=== PATIENT | male | born 1955 | race Caucasian/White ===

== ENCOUNTER 2019-11-13 19:11 | Inpatient (IN) | payer MEDICARE, MEDICAID, SELFPAY ==
--- NOTE | ~2019-11-13 | XR_ITS ---
XR abdomen NG/feed tube insert INDICATION: Evaluate position. TECHNIQUE: Limited KUB perform for evaluating NG tube . COMPARISON: FINDINGS: NG tube tip not visualized, likely in the esophagus. Visualized bowel gas pattern is unrema rkable.There is left upper and lower lobe consolidation which may represent atelectasis or pneumonia. IMPRESSION: 1: NG tube tip is not visualized, likely in the esophagus. 2: Left upper and lower lobe consolidation, atelectasis versus pneumonia. Reviewed, dictated and finalized at location A. TRY OUT WORKER STAMPING
--- NOTE | ~2019-11-13 | MR_ITS ---
EXAMINATION: MR knee LT wo/w con DATE: 11/15/2019 14:02 INDICATION: Stump cellulitis status post below-knee amputation. TECHNIQUE: Magnetic resonance imaging (MRI) of the left knee was performed without and with 20 mL Mul tiHance intravenous contrast. Sequences included axial, coronal, and sagittal T1-weighted FSE and T2- weighted FS FSE, axial T1-weighted FS FSE, and postcontrast axial and sagittal T1-weighted FS FSE COMPARISON: Left knee radiographs 11/15/2019 FINDINGS: There are changes of left below-knee amputation. There is no decreased T1-weighted signal intensity i n the stump bone marrow to suggest osteomyelitis. There is increased T2-weighted signal intensity in the lower leg musculature with severe fatty atrophy, consistent with subacute on chronic denervation. There is subcutaneous edema of the stump. In the anterior subcutaneous fat, there is a 3.8 x 0.9 x 1 .6 cm mass of increased T2-weighted signal intensity and nonenhancement extending to the skin, consis tent with abscess. IMPRESSION: 1. No evidence of osteomyelitis. 2. 3.8 x 0.9 x 1.6 cm subcutaneous abscess in the anterior stump. Reviewed, dictated and finalized at location A. ING TOWER TECHNICIAN
--- NOTE | ~2019-11-13 | XR_ITS ---
EXAMINATION: XR knee LT min 4V DATE: 11/15/2019 14:07 INDICATION: Left lower leg cellulitis. TECHNIQUE: 4 views of left knee were obtained. COMPARISON: MRI 11/15/2019 FINDINGS: There are changes of left below-knee amputation. No erosions of bone to suggest osteomyelit is. Osteopenia is noted. There is mild left knee osteoarthritis. No knee joint effusion. IMPRESSION: 1. No evidence of osteomyelitis. Reviewed, dictated and finalized at location A. ING LINE SET UP WORKER
--- NOTE | ~2019-11-13 | XR_ITS ---
XR abdomen NG/feed tube rechec INDICATION: Evaluate NG tube position. TECHNIQUE: Limited KUB perform for evaluating NG tube . COMPARISON: 11/13/2019 FINDINGS: NG tube tip in the stomach. Visualized bowel gas pattern is unremarkable. IMPRESSION: 1: NG tube tip in the stomach. Reviewed, dictated and finalized at location A. CINE WORKER
[2019-11-13 19:17] VITALS: BP 117/64; PULSE 99; RESP 18; TEMP 36.8; O2SAT 96
[2019-11-13 19:24] VITALS: BP 117/64; O2SAT 97
--- NOTE | 2019-11-13 19:49 | ED.NAVMDI ---
HPI - Nausea/Vomiting/Diarrhea General Chief complaint: Nausea/Vomiting/Diarrhea Stated complaint: vomiting blood Time Seen by Provider: 11/13/19 19:49 Source: patient and RN notes reviewed Mode of arrival: EMS Limitations: no limitations History of Present Illness HPI Narrative: A 63 y/o male presents to the ED via EMS after vomiting dark red blood twice today. He states that he first vomited dark red blood on 10/30/19 and then had two more episodes today, so he decided to come to the ED. He also reports some LLQ ABD pain that he needs hernia surgery for. He denies any fevers, chills, CP, SOB, diarrhea, and any other medical complaints at this time. MD elicited complaint: nausea and vomiting (dark red blood) Onset (ago): hour(s) (twice today but happened once before on 10/30/19) Description of vomiting: bloody (dark red) Associated nausea: Yes Associated abdominal pain: Yes Location of pain: LLQ Associated symptoms: denies other symptoms Related Data Allergies Allergy/AdvReac Type Severity Reaction Status Date / Time Penicillins Allergy Unknown Verified 07/04/19 14:27 Review of Systems Review of Systems: All systems reviewed & are unremarkable except as noted in HPI and below Constitutional: Constitutional: Denies chills, Denies fatigue, Denies fever(s), Denies headache(s) and Denies night sweats Eyes: Eyes: Denies change in vision, Denies loss of vision and Denies other visual disturbances ENT: Denies headache(s), Denies hoarseness, Denies epistaxis, Denies nasal congestion and Denies sore throat Cardiovascular: Cardiovascular: Denies chest pain, Denies leg edema, Denies palpitations and Denies dyspnea Respiratory: Respiratory: Denies cough, Denies dyspnea and Denies wheezing Gastrointestinal: Gastrointestinal: Reports abdominal pain (LLQ), Denies diarrhea, Reports nausea and Reports hematemesis (dark) Genitourinary: Genitourinary: Denies hematuria, Denies dysuria and Denies urinary frequency Musculoskeletal: Musculoskeletal: Denies abnormal gait, Denies deformity, Denies joint swelling, Denies muscle weakness and Denies numbness Integumentary/Breasts: Skin/Breast: Denies rash, Denies unusual bruising and Denies wounds Neurologic: Denies abnormal gait, Denies headache(s), Denies focal weakness, Denies loss of vision and Denies numbness Psychiatric: Psychiatric: Reports no additional psychiatric complaints Endocrine: Endocrine: Denies fatigue and Denies palpitations Hematologic/Lymphatic: Hematologic/Lymphatic: Denies easy bleeding and Denies easy bruising Allergic/Immunologic: Allergic/Immunologic: Denies wheezing PMFSH Past Medical History Medical History (Updated 11/13/19 @ 23:29 by Zeeshan Valladares MD) Hypertension Obesity Surgical History Surgical History (Updated 11/13/19 @ 20:21 by Salvatore Brunner) H/O abdominal surgery Hx of BKA Lt. Family History Family History Father Diabetes mellitus Family history of alcoholism Mother Diabetes mellitus Sibling Family history of emphysema Other Family history of cardiovascular disease Social History Social History Smoking status: Never smoker Alcohol intake: never Gender identity (if verbalized by the patient): Male Exam Const: General: no acute distress, well developed and ill appearing chronically Nutritional Appearance: obese morbidly obese Orientation/consciousness: patient oriented x3 (alert) and Other orientation findings (Alert) Limitations: no limitations HENMT: Head: normocephalic and atraumatic Ears: external ears normal General nose exam: No nasal discharge present and no epistaxis Face and sinus: face symmetric Mouth: Yes lip normal, Yes tongue normal and Yes moist mucous membranes Throat: other (No exudate, no erythema) Eyes: Conjunctivae: conjunctivae normal Sclera: sclerae normal EOM: EOMs intact bilaterally Neck:
[2019-11-13] MEDS: FAMOTIDINE 20 MG/2 ML VIAL 40 MG IV PUSH (20:35)
[2019-11-13] MEDS: LACTATED RINGERS 1,000 ML 999 ML IV CONT (20:35)
[2019-11-13 21:38] VITALS: BP 137/73; PULSE 102; RESP 20; O2SAT 95
[2019-11-13 22:22] LABS: Basophils Percent Auto 0.3 % (0.2-1.2); Eosinophils Absolute Auto 0.1 K/mm3 (0-0.3); Eosinophils Percent Auto 1.3 % (0-4.4); Hematocrit 36.2 % (42.0-52.0); Hemoglobin 11.4 g/dL (14.0-18.0); Immature Granulocyte Absolute 0.07 K/mm3 (0.00-0.031); Immature Granulocyte Percent A 0.7 % (0-0.5); Lymphocytes Absolute Auto 2.22 K/mm3 (0.9-3.2); Lymphocytes Percent Auto 21.2 % (18.3-44.2); Mean Corpuscular HGB Conc 31.5 g/dl (32-36); Mean Corpuscular Hemoglobin 30.2 pg (26-34); Mean Corpuscular Volume 95.8 fl (80-100); Mean Platelet Volume 8.4 fl (7.4-10.4); Monocytes Percent Auto 9.3 % (2.6-8.5); Neutrophils Percent Auto 67.2 % (45.5-73.1); Platelet Count Result 331 k/mm3 (150-375); Red Blood Count 3.78 M/mm3 (4.6-6.20); Red Cell Distribution Width 12.8 % (11.5-14.5); White Blood Count 10.5 K/mm3 (4.5-10.0)
[2019-11-13] MEDS: ceFAZolin 2 GM/D5W 50 ML 2 GM/50 ML BAG IVPB (22:23)
[2019-11-13 22:34] LABS: Alanine Aminotransferase 16 U/L (4-50); Albumin Level 3.5 g/dL (3.5-5.1); Alkaline Phosphatase 95 U/L (38-126); Aspartate Amino Transferase 27 U/L (17-59); Bilirubin,Total 0.2 mg/dL (0.2-1.3); Blood Urea Nitrogen 10 mg/dL (9-20); Calcium 9.4 mg/dL (8.4-10.2); Carbon Dioxide 32 mmol/L (22-30); Chloride 97 mmol/L (98-107); Estimated CRCL calculation 134 ml/min; Estimated Glomerular Filt Rate > 60; Glucose 260 mg/dL (75-110); Potassium 4.9 mmol/L (3.4-5.0); Sodium 133 mmol/L (137-145)
[2019-11-14] VITALS (9 sets, daily range): BP systolic 132–189; BP diastolic 53–95; PULSE 84–113; RESP 16–20; TEMP 36.7–37.3; O2SAT 94–100; BMI 44.1
--- NOTE | 2019-11-14 00:28 | ADMGEN ---
This patient, Wing Veloz, was admitted to 3 [facility] Surg Room 323-01. Patient/family oriented to hospital policies and general routines including ID bracelet, bed and alarms, visiting hours, pain management, procedures, bathroom and other care routines, personal items, smoking policy, room service/diet, and visiting hours. Valuables list has been completed. Information on how to activate the Rapid Response Team has been discussed. Patient/Family are encouraged to report perceived risks to care and to ask questions if they do not understand what they are told or what they should do.
[2019-11-14] MEDS: LACTATED RINGERS 1,000 ML 125 ML IV CONT ×2 (01:00→23:38)
[2019-11-14 02:19] LABS: Hematocrit 33.8 % (42.0-52.0); Hemoglobin 10.8 g/dL (14.0-18.0); Mean Corpuscular Hemoglobin 30.3 pg (26-34); Mean Corpuscular Volume 94.7 fl (80-100); Mean Platelet Volume 8.2 fl (7.4-10.4); Platelet Count Result 306 k/mm3 (150-375); Red Blood Count 3.57 M/mm3 (4.6-6.20); Red Cell Distribution Width 12.8 % (11.5-14.5); White Blood Count 9.6 K/mm3 (4.5-10.0)
[2019-11-14 02:35] LABS: Blood Urea Nitrogen 9 mg/dL (9-20); Carbon Dioxide 30 mmol/L (22-30); Chloride 100 mmol/L (98-107); Estimated CRCL calculation 167 ml/min; Estimated Glomerular Filt Rate > 60; Glucose 238 mg/dL (75-110); Potassium 4.3 mmol/L (3.4-5.0); Sodium 134 mmol/L (137-145)
--- NOTE | 2019-11-14 04:34 | HP_ITS ---
DATE OF SERVICE: CHIEF COMPLAINT: 1. Nausea. 2. Vomiting of blood. HISTORY OF PRESENT ILLNESS: The patient is a 63 years old male, who was admitted to the emergency room with a complaint that he started having vomiting of blood about 2 weeks ago. He had first episode and then after that, he had 1 episode this morning. Vomiting was dark red in color and the patient also had mild nausea associated with it. The patient also said that he has ventral hernia and sometimes he gets pain in the left lower quadrant at the site of hernia and physician has recommended that he may need surgery for it. The patient denies any fever or chills. No shortness of breath. No chest pain. REVIEW OF SYSTEMS: Positive for nausea and vomiting of blood and mild abdominal pain. All other 10 review of systems were reviewed with the patient and found to be negative. ALLERGIES: THE PATIENT IS ALLERGIC TO PENICILLIN, SEVERITY UNKNOWN. PAST MEDICAL HISTORY: 1. Hypertension. 2. Obesity. PAST SURGICAL HISTORY: 1. History of abdominal surgery. 2. History of left BKA. FAMILY HISTORY: Diabetes run in the family on the father's side. Mother had diabetes. Sibling has emphysema. SOCIAL HISTORY: No smoking and no alcohol. CURRENT MEDICATIONS: Reviewed and in the chart. PHYSICAL EXAMINATION: VITAL SIGNS: At the time of admission include blood pressure is 117/64, pulse rate 99, respirations 18, temperature is 36.8, pulse ox is 96. HEENT: Pupils are equal and reacting to light. no JVD. No bruit. NECK: Supple. LUNGS: Air entry good. No additional sound. HEART: S1 and S2. Rate and rhythm regular. No S3. No murmur. ABDOMEN: Soft, mild epigastric tenderness. Bowel sounds positive. No hepatosplenomegaly. EXTREMITIES: The patient might have small ventral hernia, but because of obesity, it is difficult to assess. No cyanosis, clubbing, or edema. The patient has left below knee amputation and has slight cellulitis in the stump area. MECHANICAL MANUFACTURING TECHNICIAN: Alert and oriented x3. No new focal deficits. IMPORTANT LAB DATA: The patient has an NG tube that shows small amount of blood in it. WBC count is 10.5, hemoglobin 11.4, platelet count is 331. Sodium 133, potassium 4.9, BUN 10, creatinine 0.7, glucose is 260. The patient's abdominal x-ray shows NG tube is not visualized. Left upper and left lower lobe consolidation. Atelectasis and versus pneumonia. ASSESSMENT AND PLAN: 1. Upper gastrointestinal bleed. 2. Cellulitis of the left below knee amputation stump. 3. Slightly elevated glucose. PLAN: 1. Admit. 2. We will give IV fluids, S2 blockers. 3. IV antibiotics, culture. 4. GI consult. 5. Monitor hemoglobin closely. 6. Monitor glucose closely. 7. We will put the patient on sliding scale insulin. 8. The patient will stay for more than 2 days in the hospital. 9. The patient is full code at the present time. 10. Further evaluation and treatment of the patient will be done according to the lab data available and recommendation by the specialist. Kate I MT: Humberto
[2019-11-14 06:21] LABS: Basophils Percent Auto 0.4 % (0.2-1.2); Eosinophils Absolute Auto 0.2 K/mm3 (0-0.3); Eosinophils Percent Auto 1.7 % (0-4.4); Hematocrit 34.1 % (42.0-52.0); Immature Granulocyte Absolute 0.08 K/mm3 (0.00-0.031); Immature Granulocyte Percent A 0.8 % (0-0.5); Lymphocytes Absolute Auto 2.36 K/mm3 (0.9-3.2); Lymphocytes Percent Auto 24.4 % (18.3-44.2); Mean Corpuscular HGB Conc 32.3 g/dl (32-36); Mean Corpuscular Hemoglobin 30.1 pg (26-34); Mean Corpuscular Volume 93.4 fl (80-100); Mean Platelet Volume 8.6 fl (7.4-10.4); Monocytes Absolute Auto 1.1 K/mm3 (0.1-0.6); Monocytes Percent Auto 10.8 % (2.6-8.5); Neutrophils Percent Auto 61.9 % (45.5-73.1); Platelet Count Result 288 k/mm3 (150-375); Red Blood Count 3.65 M/mm3 (4.6-6.20); Red Cell Distribution Width 12.7 % (11.5-14.5); White Blood Count 9.7 K/mm3 (4.5-10.0)
[2019-11-14 08:06] LABS: Glucose Point of Care 272 (65-105)
[2019-11-14] MEDS: ceFAZolin 2 GM/D5W 50 ML 2 GM/50 ML BAG IVPB ×4 (08:50→23:37)
--- NOTE | 2019-11-14 09:45 | WPDGICN ---
Assessment and Plan Additional Plan This is a 63-year-old white male patient with a history of hypertension, diabetes, and peripheral vascular disease. I am asked to see him at the request of the emergency room because of hematemesis. Patient reports 2 weeks ago had bout of nausea vomiting and vomited some blood. Once again yesterday he vomited some blood. This prompted him to go to the emergency room. He was admitted to the hospital. Patient has a long history of diabetes. He has peripheral vascular disease. Status post left pcwur-gdm-tkbf amputation this was found to have evidence for cellulitis in the emergency room last evening. He has had multiple surgeries in the abdomen predominantly for hernia repair. He states he still has a ventral hernia present. Patient denies any fever. He states his bowel habits are normal. Family history is noncontributory. Past medical history is significant for hypertension. Diabetes mellitus. Obesity. Peripheral vascular disease. Previous left xemyu-qqp-icaf amputation. History of ventral hernia and several repair surgeries. Medications include Tylenol vitamin C escitalopram. Gabapentin. Insulin. Victoza. Lisinopril. Tramadol. Senna. He has an allergy to penicillin. Physical exam reveals an to be alert. Vital signs stable. He is anicteric. NG tube is in place with clear return. Lungs are clear to auscultation and percussion. Heart is without murmur or extra sounds. Abdominal exam is obese. Bowel sounds are present soft nontender no organomegaly. Extremities reveal a left jhphl-kau-htfo amputation. There is cellulitis at his amputation stump. Impression 1. Hematemesis. Plan is for IV proton pump inhibitor. An EGD to assess for bleeding will be obtained. 2. Obesity. 3. Diabetes. 4. Left kguya-tov-aaoe amputation. 5. Left lower extremity cellulitis. 6. Previous abdominal surgery with ventral hernia repairs. Plan is for IV proton pump inhibitor. An EGD will be planned. Will follow with you during this hospital stay. GI Consult Note Consult date/time: 11/14/19 09:45 HPI: Wing Veloz is a 63 year old male [facility] Past Medical History Medical History (Updated 11/14/19 @ 09:48 by Conrad Brady MD) CAD (coronary artery disease) Diabetes Hypertension Obesity TAWANDA (obstructive sleep apnea) Peripheral vascular disease Surgical History Surgical History (Updated 11/13/19 @ 20:21 by Salvatore Brunner) H/O abdominal surgery Hx of BKA Lt. Family History Family History Father Diabetes mellitus Family history of alcoholism Mother Diabetes mellitus Sibling Family history of emphysema Other Family history of cardiovascular disease Social History Social History Smoking status: Never smoker Alcohol intake: never Substance use: never Gender identity (if verbalized by the patient): Male Spiritual care concerns: No Agree to blood products: Yes Meds Home Medications and Allergies Home Medications Medication Instructions Recorded Confirmed Type Senna-S 1 tab-cap PO DAILY 11/14/19 11/14/19 History acetaminophen [Acetaminophen Extra 500 mg PO Q6H PRN 11/14/19 11/14/19 History Strength] ascorbic acid (vitamin C) 500 mg PO BID 11/14/19 11/14/19 History ergocalciferol (vitamin D2) 50,000 unit PO WEEKLY 11/14/19 11/14/19 History [Vitamin D2] escitalopram oxalate 5 mg PO DAILY 11/14/19 11/14/19 History escitalopram oxalate 10 mg PO DAILY 11/14/19 11/14/19 History gabapentin 600 mg PO TID 11/14/19 11/14/19 History insulin admin supplies [InPen (for 11/14/19 11/14/19 History Humalog)] insulin glargine [Lantus Solostar 80 unit SUBCUT HS 11/14/19 11/14/19 History U-100 Insulin] insulin lispro [Humalog U-100 35 unit SUBCUT AC 11/14/19 11/14/19 History Insulin] liraglutide [Victoza 2-Tushar] 1.8 mg SUBCUT DAILY 11/14/1911/14
--- NOTE | 2019-11-14 09:47 | WPDANESEPPF ---
Anes - Initial Pre Proc Eval Procedure: Operation Date: 11/14/19 10:30 Proposed Procedures p Esophagogastroduodenoscopy - Zeeshan Luu MD Date/Time: 11/14/19 09:47 Surgeon: Adrian Haywood MD Pre Op Diagnosis: ugib leg cellulitis Patient Data Age: 63 Gender: M Height: 6 ft 2 in Weight: 156 kg Last Vital Signs Temp 37.3 C 11/14/19 06:00 Pulse 102 H 11/14/19 06:00 Resp 20 11/14/19 06:00 BP 140/68 11/14/19 06:00 Pulse Ox 94 11/14/19 06:00 Allergies Allergy/AdvReac Type Severity Reaction Status Date / Time Penicillins Allergy Unknown Verified 07/04/19 14:27 Home Medications Medication Instructions Recorded Confirmed Type Senna-S 1 tab-cap PO DAILY 11/14/19 11/14/19 History acetaminophen [Acetaminophen Extra 500 mg PO Q6H PRN 11/14/19 11/14/19 History Strength] ascorbic acid (vitamin C) 500 mg PO BID 11/14/19 11/14/19 History ergocalciferol (vitamin D2) 50,000 unit PO WEEKLY 11/14/19 11/14/19 History [Vitamin D2] escitalopram oxalate 5 mg PO DAILY 11/14/19 11/14/19 History escitalopram oxalate 10 mg PO DAILY 11/14/19 11/14/19 History gabapentin 600 mg PO TID 11/14/19 11/14/19 History insulin admin supplies [InPen (for 11/14/19 11/14/19 History Humalog)] insulin glargine [Lantus Solostar 80 unit SUBCUT HS 11/14/19 11/14/19 History U-100 Insulin] insulin lispro [Humalog U-100 35 unit SUBCUT AC 11/14/19 11/14/19 History Insulin] liraglutide [Victoza 2-Tushar] 1.8 mg SUBCUT DAILY 11/14/19 11/14/19 History lisinopril 5 mg PO DAILY 11/14/19 11/14/19 History mirtazapine 30 mg PO HS 11/14/19 11/14/19 History multivitamin,ii-cked-Lb-FA-min 1 tablet PO DAILY 11/14/19 11/14/19 History [Therapeutic-M Vitamin/Minerals] quiwxpii-xyukkxugwVn-gncftjiuB 1 applic TOPICAL BID PRN 11/14/19 11/14/19 History [Triple Antibiotic] silver sulfadiazine [Silvadene] 1 applic TOPICAL BID PRN 11/14/19 11/14/19 History tramadol 50 mg PO Q6H PRN 11/14/19 11/14/19 History Laboratory Tests 11/13/19 11/13/19 11/14/19 22:13 22:13 02:12 WBC 10.5 K/mm3 H K/mm3 9.6 K/mm3 K/mm3 (4.5-10.0) (4.5-10.0) RBC 3.78 M/mm3 L M/mm3 3.57 M/mm3 L M/mm3 (4.6-6.20) (4.6-6.20) Hgb 11.4 g/dL L g/dL 10.8 g/dL L g/dL (14.0-18.0) (14.0-18.0) Hct 36.2 % L % 33.8 % L % (42.0-52.0) (42.0-52.0) MCV 95.8 fl fl 94.7 fl fl (80-100) (80-100) MCH 30.2 pg pg 30.3 pg pg (26-34) (26-34) MCHC 31.5 g/dl L g/dl 32.0 g/dl g/dl (32-36) (32-36) RDW 12.8 % % 12.8 % % (11.5-14.5) (11.5-14.5) Plt Count 331 k/mm3 D k/mm3 306 k/mm3 k/mm3 (150-375) (150-375) MPV 8.4 fl fl 8.2 fl fl (7.4-10.4) (7.4-10.4) Immature Gran % (Auto) 0.7 % H % (0-0.5) Neut % (Auto) 67.2 % % (45.5-73.1) Lymph % (Auto) 21.2 % % (18.3-44.2) [place] % (Auto) 9.3 % H % (2.6-8.5) Eos % (Auto) 1.3 % % (0-4.4) Baso % (Auto) 0.3 % % (0.2-1.2) Lymph # (Auto) 2.22 K/mm3 K/mm3 (0.9-3.2) [place] # (Auto) 1.0 K/mm3 H K/mm3 (0.1-0.6) Eos # (Auto) 0.1 K/mm3 K/mm3 (0-0.3) Baso # (Auto) 0.0 K/mm3 K/mm3 (0.0-0.1) Abs Immat Gran (auto) 0.07 K/mm3 H K/mm3 (0.00-0.031) Absolute Neuts (auto) 7.0 K/mm3 H K/mm3 (1.3-6.7) Absolute Nucleated RBC 0.0 K/mm3 K/mm3 (0.0-0.012) Nucleated RBC % 0.0 % % (0.0-0.2) Sodium 133 mmol/L L mmol/L (137-145) Potassium 4.9 mmol/L mmol/L (3.4-5.0) Chloride 97 mmol/L L mmol/L (98-107) Carbon Dioxide 32 mmol/L H mmol/L (22-30) BUN 10 mg/dL mg/dL (9-20) Creatinine 0.70 mg/dL mg/dL (0.7-1.3) Estim Creat Clear Calc 134 ml/min ml/min Estimated GFR > 60 (59 - ) Glucose 260 mg/dL H mg/dL (75-110) POC Capillary Glucose Calcium 9.4 mg/dL mg/dL (8.4-10.2) Total Bi
[2019-11-14 09:56] LABS: Glucose Point of Care 292 (65-105)
[2019-11-14 11:38] LABS: Glucose Point of Care 287 (65-105)
[2019-11-14] MEDS: INSULIN ASPART (*BKC) 100 UNITS/ML SUB-Q ×3 (12:12→20:38)
--- NOTE | 2019-11-14 13:40 | PM.IMPN ---
Progress Note: A&P Assessment and Plan (1) UGIB (upper gastrointestinal bleed): Code(s): K92.2 - Gastrointestinal hemorrhage, unspecified Status: Acute Assessment and Plan: EGD today revealed esophagitis gastritis but no active bleeding.. Proton pump inhibitor and advance diet Complains of dark stools but does take Pepto-Bismol at home and BUN is normal ,suggesting at least no recent significant upper GI bleed (2) Cellulitis of left leg: Code(s): L03.116 - Cellulitis of left lower limb Status: Acute Assessment and Plan: Continue vancomycin and cefazolin initially which would cover for strep and staph adequately. If does not respond quickly consider broaden coverage to g negatives with his diabetes (3) Hypertension: Code(s): I10 - Essential (primary) hypertension Status: Acute Assessment and Plan: Blood pressure fair control continue ADAMARIS-inhibitor (4) Diabetes: Code(s): E11.9 - Type 2 diabetes mellitus without complications Status: Acute Assessment and Plan: Decrease Lantus to 60 units with a sliding scale and check A1c (5) Peripheral vascular disease: Code(s): I73.9 - Peripheral vascular disease, unspecified Status: Acute Assessment and Plan: Should probably be on anti-platelet and statin but will leave that to primary care (6) TAWANDA (obstructive sleep apnea): Code(s): G47.33 - Obstructive sleep apnea (adult) (pediatric) Status: Acute Assessment and Plan: Nocturnal CPAP (7) DVT prophylaxis: Code(s): Z29.9 - Encounter for prophylactic measures, unspecified Status: Acute Assessment and Plan: Mechanical with history of bleeding Subjective Date/time seen: 11/14/19 13:40 Interval history: Date of visit 11/14/2019. 63-year-old hypertensive type 2 diabetic admitted with abdominal pain, hematemesis, and pain and swelling of left below-knee amputation. Found to have cellulitis of the leg and admitted for treatment of the same Still complains some abdominal pain today Exam Narrative: Exam Narrative: Blood pressure 150/60 pulse is 100 saturating 95% on room air afebrile Pupil equal reactive to light sclera anicteric Lungs clear CV regular rate rhythm Abdomen is soft bowel sounds are present morbidly obese large midline scar Extremities without edema the left below-knee amputation stumps erythematous and is a small open area Right leg distal pulses 1+ no edema Neuro alert no focal deficits oriented Objective Data Vital Signs Vital Signs: Vital Signs - 24 hr 11/13/19 19:17 11/13/19 19:24 11/13/19 21:38 Temperature 36.8 C Pulse Rate 99 102 H Respiratory Rate 18 20 Blood Pressure 117/64 117/64 137/73 Pulse Oximetry 96 97 95 11/14/19 00:04 11/14/19 00:25 11/14/19 06:00 Temperature 37.0 C 36.8 C 37.3 C Pulse Rate 84 101 H 102 H Respiratory Rate 16 20 20 Blood Pressure 155/88 H 153/85 H 140/68 Pulse Oximetry 100 99 94 11/14/19 09:56 11/14/19 10:43 11/14/19 10:53 Temperature 36.7 C Pulse Rate 109 H 113 H 104 H Respiratory Rate 16 20 20 Blood Pressure 157/95 H 138/58 L 148/53 H Pulse Oximetry 96 98 98 11/14/19 11:03 Temperature Pulse Rate 106 H Respiratory Rate 20 Blood Pressure 151/59 H Pulse Oximetry 98 Intake/Output Intake/Output: Intake & Output 11/11/19 11/12/19 11/13/19 11/14/19 23:59 23:59 23:59 23:59 Intake Total 1000 710 Output Total 400 Balance 1000 310 Meds/Results Medications: Active Medications Generic Name Dose Route Start Last Admin Trade Name Freq PRN Reason Stop Dose Admin Dextrose 12.5 gm 11/14/19 01:31 Dextrose 50% Syringe IV PUSH PRN PRN Hypoglycemia Protocol Glucagon 1 mg 11/14/19 01:31 Glucagon For Inj IM PRN PRN Hypoglycemia Protocol Glucose 15 gm 11/14/19 01:31 Glutose 15 PO PRN PRN Hypoglycemia Protocol Lactated Ringer's 1,000 mls @ 125 mls/h
[2019-11-14 16:52] LABS: Glucose Point of Care 364 (65-105)
[2019-11-14] MEDS: lisinopriL 5 MG TABLET PO (17:22)
[2019-11-14] MEDS: AMLODIPINE BESYLATE 5 MG TABLET PO (17:22)
[2019-11-14] MEDS: GABAPENTIN 300 MG CAPSULE 600 MG PO (17:29)
[2019-11-14] MEDS: INSULIN GLARGINE (*BKC) 100 UNITS/ML 60 UNITS SUB-Q (20:37)
[2019-11-14] MEDS: MIRTAZAPINE 30 MG TABLET PO (20:38)
[2019-11-15 02:38] LABS: Glucose Point of Care 328 (65-105)
[2019-11-15 06:06] VITALS: BP 131/72; PULSE 100; RESP 18; TEMP 36.6; O2SAT 94
[2019-11-15 06:21] LABS: Basophils Percent Auto 0.3 % (0.2-1.2); Eosinophils Absolute Auto 0.2 K/mm3 (0-0.3); Eosinophils Percent Auto 2.2 % (0-4.4); Hemoglobin 10.8 g/dL (14.0-18.0); Immature Granulocyte Absolute 0.03 K/mm3 (0.00-0.031); Immature Granulocyte Percent A 0.4 % (0-0.5); Lymphocytes Absolute Auto 1.83 K/mm3 (0.9-3.2); Lymphocytes Percent Auto 25.3 % (18.3-44.2); Mean Corpuscular HGB Conc 31.8 g/dl (32-36); Mean Corpuscular Hemoglobin 30.2 pg (26-34); Mean Platelet Volume 8.3 fl (7.4-10.4); Monocytes Absolute Auto 0.8 K/mm3 (0.1-0.6); Monocytes Percent Auto 11.3 % (2.6-8.5); Neutrophils Absolute Auto 4.4 K/mm3 (1.3-6.7); Neutrophils Percent Auto 60.5 % (45.5-73.1); Platelet Count Result 305 k/mm3 (150-375); Red Blood Count 3.58 M/mm3 (4.6-6.20); Red Cell Distribution Width 12.6 % (11.5-14.5); White Blood Count 7.2 K/mm3 (4.5-10.0)
[2019-11-15] MEDS: ceFAZolin 2 GM/D5W 50 ML 2 GM/50 ML BAG IVPB (06:29)
[2019-11-15 06:34] LABS: Blood Urea Nitrogen 7 mg/dL (9-20); Calcium 8.6 mg/dL (8.4-10.2); Carbon Dioxide 32 mmol/L (22-30); Chloride 97 mmol/L (98-107); Estimated CRCL calculation 167 ml/min; Estimated Glomerular Filt Rate > 60; Glucose 307 mg/dL (75-110); Potassium 3.8 mmol/L (3.4-5.0); Sodium 134 mmol/L (137-145)
[2019-11-15 06:43] LABS: Hemoglobin A1C 11.6 % (<5.7)
--- NOTE | 2019-11-15 07:10 | WPDGIPROGNO ---
Progress Note: A&P Additional Plan Patient alert and comfortable this morning. Tolerated diet. He denies abdominal pain. No signs of additional GI blood loss. Physical exam reveals patient to be alert. Vital signs stable. HEENT exam unremarkable. He is anicteric. Lungs are clear. Abdomen is obese. Bowel sounds are present soft and nontender. Impression 1. Esophagitis. Etiology unclear. Histology pending to exclude infectious process. Plan is to keep on Protonix for possible reflux. 2. Gastric erosion. Likely from NG tube trauma. Patient on Protonix. 3. Cellulitis. Antibiotics per primary care service. Plan is to advance diet. He likely will tolerate bland diet best. Continue Protonix. Await final histology. Subjective Date/time seen: 11/15/19 07:10 Objective Data Vital Signs Vital Signs: Vital Signs - 24 hr 11/14/19 09:56 11/14/19 10:43 11/14/19 10:53 Temperature 36.7 C Pulse Rate 109 H 113 H 104 H Respiratory Rate 16 20 20 Blood Pressure 157/95 H 138/58 L 148/53 H Pulse Oximetry 96 98 98 11/14/19 11:03 11/14/19 14:18 11/14/19 22:05 Temperature 36.8 C 36.9 C Pulse Rate 106 H 106 H 102 H Respiratory Rate 20 18 18 Blood Pressure 151/59 H 189/91 H 132/71 Pulse Oximetry 98 98 95 11/15/19 06:06 Temperature 36.6 C Pulse Rate 100 Respiratory Rate 18 Blood Pressure 131/72 Pulse Oximetry 94 Intake/Output Intake/Output: Intake & Output 11/12/19 11/13/19 11/14/19 11/15/19 23:59 23:59 23:59 23:59 Intake Total 1000 2600 250 Output Total 1725 500 Balance 1000 875 -250 Meds/Results Medications: Active Medications Generic Name Dose Route Start Last Admin Trade Name Freq PRN Reason Stop Dose Admin Dextrose 12.5 gm 11/14/19 01:31 Dextrose 50% Syringe IV PUSH PRN PRN Hypoglycemia Protocol Escitalopram Oxalate 10 mg 11/15/19 09:00 Lexapro PO DAILY PAULIE Escitalopram Oxalate 5 mg 11/15/19 09:00 Lexapro PO DAILY PAULIE Gabapentin 600 mg 11/14/19 17:00 11/14/19 17:29 Neurontin PO 600 mg TID PAULIE Administration Glucagon 1 mg 11/14/19 01:31 Glucagon For Inj IM PRN PRN Hypoglycemia Protocol Glucose 15 gm 11/14/19 01:31 Glutose 15 PO PRN PRN Hypoglycemia Protocol Lactated Ringer's 1,000 mls @ 125 mls/hr 11/13/19 23:20 11/14/19 23:38 Lr - Lactated Ringers Iv IV CONT 125 mls/hr .Q8H PAULIE Administration Cefazolin Sodium 2 gm in 50 mls @ 100 mls/hr 11/14/19 06:00 11/15/19 06:29 Ancef 2 Gm/D5w 50 Ml IVPB 100 mls/hr Q6HR PAULIE Administration Vancomycin HCl 2,000 mg in 500 mls @ 250 mls/hr 11/14/19 03:00 11/15/19 02:50 Vancomycin 2,000 Mg/D5w 500 Ml IVPB 150 mls/hr Q12H PAULIE Administration Dextrose 1,000 mls @ 100 mls/hr 11/14/19 01:31 Dextrose 5% 1,000 Ml IVPB PRN PRN Hypoglycemia Protocol Insulin Aspart 3 - 6 units 11/14/19 16:30 11/14/19 20:38 Novolog SUB-Q 5 units ACHS PAULIE Administration Protocol Insulin Glargine 60 units 11/14/19 21:00 11/14/19 20:37 Lantus SUB-Q 60 units HS PAULIE Administration Lidocaine HCl 0.3 ml 11/14/19 07:39 Xylocaine 2% Local Inj INTRADERM ONCE PRN to numb area Lisinopril 5 mg 11/15/19 09:00 Prinivil PO QAM [facility] Mirtazapine 30 mg 11/14/19 21:00 11/14/19 20:38 Remeron PO 30 mg HS PAULIE Administration Ondansetron HCl 4 mg 11/13/19 23:20 Zofran Inj IV PUSH Q4H PRN Nausea Pantoprazole Sodium 40 mg 11/15/19 09:00 Protonix PO QAM PAULIE Tramadol HCl 50 mg 11/14/19 09:42 Ultram PO Q6H PRN Pain Rated 4-6 Radiology Results: ITS Impressions Abdomen X-Ray 11/13/19 21:35 IMPRESSION: 1: NG tube tip in the stomach. Labs Labs: Laboratory Results - last 24 hr 11/14/19 11/14/19 11/14/19 08:02 09:51 11:34 WBC RBC Hgb Hct MCV MCH MCHC RDW Plt
[2019-11-15] MEDS: ESCITALOPRAM OXALATE 10 MG TABLET PO (08:23)
[2019-11-15] MEDS: ESCITALOPRAM OXALATE 5 MG TABLET PO (08:23)
[2019-11-15] MEDS: lisinopriL 5 MG TABLET PO (08:23)
[2019-11-15] MEDS: GABAPENTIN 300 MG CAPSULE 600 MG PO ×3 (08:23→18:02)
[2019-11-15] MEDS: PANTOPRAZOLE 40 MG TABLET PO (08:23)
[2019-11-15] MEDS: INSULIN ASPART (*BKC) 100 UNITS/ML SUB-Q ×3 (08:26→18:05)
[2019-11-15 09:41] LABS: Glucose Point of Care 302 (65-105)
[2019-11-15 12:46] LABS: Glucose Point of Care 339 (65-105)
[2019-11-15] MEDS: LACTATED RINGERS 1,000 ML 125 ML IV CONT (12:51)
[2019-11-15 14:00] VITALS: BP 152/78; PULSE 97; RESP 18; TEMP 36.9; O2SAT 96
[2019-11-15] MEDS: INSULIN ASPART (*BKC) 100 UNITS/ML 10 UNITS SUB-Q (14:25)
[2019-11-15] MEDS: BETAMETHASONE/CLOTRIMAZOLE CR 15 GM TUBE 1 APPLIC TOPICAL ×2 (14:26→20:49)
--- NOTE | 2019-11-15 16:27 | PM.IMPN ---
Progress Note: A&P Assessment and Plan (1) UGIB (upper gastrointestinal bleed): Code(s): K92.2 - Gastrointestinal hemorrhage, unspecified Status: Acute Assessment and Plan: EGD 11/14 revealed esophagitis gastritis but no active bleeding.. Proton pump inhibitor and advanced diet. Tolerating well Complained of dark stools but does take Pepto-Bismol at home and BUN is normal ,suggesting at least no recent significant upper GI bleed (2) Cellulitis of left leg: Code(s): L03.116 - Cellulitis of left lower limb Status: Acute Assessment and Plan: Continue vancomycin and add cefepime since allergy to pen. Wound care opened and cavity present. MR no osteo but 3.8x 1.6 abscess of stump. Surgery consult to ID (3) Hypertension: Code(s): I10 - Essential (primary) hypertension Status: Acute Assessment and Plan: Blood pressure fair control continue ADAMARIS-inhibitor (4) Diabetes: Code(s): E11.9 - Type 2 diabetes mellitus without complications Status: Acute Assessment and Plan: A1c 11.6. Blood sugars have run high so will restart his usual dose of Lantus and add knob along with meals to try to control better to clear infection (5) Peripheral vascular disease: Code(s): I73.9 - Peripheral vascular disease, unspecified Status: Acute Assessment and Plan: Should probably be on anti-platelet and statin but will leave that to primary care (6) TAWANDA (obstructive sleep apnea): Code(s): G47.33 - Obstructive sleep apnea (adult) (pediatric) Status: Acute Assessment and Plan: Nocturnal CPAP (7) DVT prophylaxis: Code(s): Z29.9 - Encounter for prophylactic measures, unspecified Status: Acute Assessment and Plan: Start Lovenox since EGD showed no obvious source of bleeding and on PPI now Subjective Date/time seen: 11/15/19 16:27 Interval history: Date of visit 11/15/2019. 63-year-old hypertensive type 2 diabetic admitted with abdominal pain, hematemesis, and pain and swelling of left below-knee amputation. Found to have cellulitis of the leg and admitted for treatment of the same Abdominal pain subsided, eating well, and wants to go home Exam Narrative: Exam Narrative: Blood pressure 130/70 pulse is 100 saturating 95% on room air afebrile Pupil equal reactive to light sclera anicteric Lungs clear CV regular rate rhythm Abdomen is soft bowel sounds are present morbidly obese large old midline scar Extremities without edema the left below-knee amputation stumps erythematous but less so and is a small lesion in midline of stump more purelent looking and some fluctuance Right leg distal pulses 1+ no edema Neuro alert no focal deficits oriented Objective Data Vital Signs Vital Signs: Vital Signs - 24 hr 11/14/19 22:05 11/15/19 06:06 Temperature 36.9 C 36.6 C Pulse Rate 102 H 100 Respiratory Rate 18 18 Blood Pressure 132/71 131/72 Pulse Oximetry 95 94 Intake/Output Intake/Output: Intake & Output 11/12/19 11/13/19 11/14/19 11/15/19 23:59 23:59 23:59 23:59 Intake Total 1000 2600 2330 Output Total 1725 500 Balance 8653 148 9411 Meds/Results Medications: Active Medications Generic Name Dose Route Start Last Admin Trade Name Freq PRN Reason Stop Dose Admin Clotrimazole 1 applic 11/15/19 12:00 11/15/19 14:26 Lotrisone Cream TOPICAL 1 applic Q12HR PAULIE Administration Dextrose 12.5 gm 11/14/19 01:31 Dextrose 50% Syringe IV PUSH PRN PRN Hypoglycemia Protocol Escitalopram Oxalate 10 mg 11/15/19 09:00 11/15/19 08:23 Lexapro PO 10 mg DAILY PAULIE Administration Escitalopram Oxalate 5 mg 11/15/19 09:00 11/15/19 08:23 Lexapro PO 5 mg DAILY PAULIE Administration Gabapentin 600 mg 11/14/19 17:00 11/15/19 14:40 Neurontin PO 600 mg TID PAULIE Administration Glucagon 1 mg 11/14/19 01:31 Glucagon For Inj IM PRN PRN Hypoglycemia Protoc
[2019-11-15] MEDS: INSULIN ASPART (*BKC) 100 UNITS/ML 15 UNITS SUB-Q (18:05)
[2019-11-15 18:58] LABS: Glucose Point of Care 367 (65-105)
[2019-11-15] MEDS: MIRTAZAPINE 30 MG TABLET PO (20:49)
[2019-11-15] MEDS: ENOXAPARIN 40 MG/0.4 ML SYRINGE SUB-Q (20:50)
[2019-11-15] MEDS: INSULIN GLARGINE (*BKC) 100 UNITS/ML 80 UNITS SUB-Q (20:51)
[2019-11-15 21:11] LABS: Glucose Point of Care 309 (65-105)
[2019-11-15 22:00] VITALS: BP 152/92; PULSE 105; RESP 20; TEMP 36.8; O2SAT 96
[2019-11-16 06:00] VITALS: BP 120/72; PULSE 114; RESP 20; TEMP 36.9; O2SAT 97
[2019-11-16 06:10] LABS: Basophils Percent Auto 0.3 % (0.2-1.2); Eosinophils Absolute Auto 0.2 K/mm3 (0-0.3); Eosinophils Percent Auto 2.6 % (0-4.4); Hematocrit 36.8 % (42.0-52.0); Hemoglobin 11.6 g/dL (14.0-18.0); Immature Granulocyte Absolute 0.04 K/mm3 (0.00-0.031); Immature Granulocyte Percent A 0.6 % (0-0.5); Lymphocytes Absolute Auto 1.62 K/mm3 (0.9-3.2); Lymphocytes Percent Auto 26.1 % (18.3-44.2); Mean Corpuscular HGB Conc 31.5 g/dl (32-36); Mean Corpuscular Hemoglobin 30.3 pg (26-34); Mean Corpuscular Volume 96.1 fl (80-100); Mean Platelet Volume 8.3 fl (7.4-10.4); Monocytes Absolute Auto 0.7 K/mm3 (0.1-0.6); Monocytes Percent Auto 10.5 % (2.6-8.5); Neutrophils Absolute Auto 3.7 K/mm3 (1.3-6.7); Neutrophils Percent Auto 59.9 % (45.5-73.1); Platelet Count Result 315 k/mm3 (150-375); Red Blood Count 3.83 M/mm3 (4.6-6.20); Red Cell Distribution Width 12.8 % (11.5-14.5); White Blood Count 6.2 K/mm3 (4.5-10.0)
[2019-11-16 06:33] LABS: Blood Urea Nitrogen 11 mg/dL (9-20); Calcium 8.8 mg/dL (8.4-10.2); Carbon Dioxide 32 mmol/L (22-30); Chloride 96 mmol/L (98-107); Estimated CRCL calculation 145 ml/min; Estimated Glomerular Filt Rate > 60; Glucose 343 mg/dL (75-110); Potassium 4.2 mmol/L (3.4-5.0); Sodium 134 mmol/L (137-145)
[2019-11-16 07:40] VITALS: PULSE 90; RESP 24; O2SAT 96
[2019-11-16 08:00] VITALS: PULSE 90; RESP 24; O2SAT 96
[2019-11-16] MEDS: INSULIN ASPART (*BKC) 100 UNITS/ML SUB-Q ×3 (08:04→18:53)
[2019-11-16] MEDS: INSULIN ASPART (*BKC) 100 UNITS/ML 15 UNITS SUB-Q ×3 (08:06→18:53)
[2019-11-16] MEDS: lisinopriL 5 MG TABLET PO (08:08)
[2019-11-16] MEDS: ESCITALOPRAM OXALATE 10 MG TABLET PO (08:09)
[2019-11-16] MEDS: ENOXAPARIN 40 MG/0.4 ML SYRINGE SUB-Q ×2 (08:10→20:12)
[2019-11-16] MEDS: BETAMETHASONE/CLOTRIMAZOLE CR 15 GM TUBE 1 APPLIC TOPICAL (08:10)
[2019-11-16] MEDS: GABAPENTIN 300 MG CAPSULE 600 MG PO ×2 (08:11→20:03)
[2019-11-16] MEDS: ESCITALOPRAM OXALATE 5 MG TABLET PO (08:11)
[2019-11-16] MEDS: PANTOPRAZOLE 40 MG TABLET PO (08:12)
--- NOTE | 2019-11-16 09:32 | PM.CNGS ---
Assessment and Plan Assessment and plan (1) Below-knee amputation of left lower extremity with complication: Code(s): S88.112A - Complete traumatic amputation at level between knee and ankle, left lower leg, initial encounter Status: Acute Assessment and Plan: Will proceed with incision and drainage at the bedside. Cultures will be done. This will require some chronic wound care after discharge as well. (2) Diabetes: Code(s): E11.9 - Type 2 diabetes mellitus without complications Status: Chronic Assessment and Plan: Not well controlled. Better diabetic control with definitely help with healing of the abscess. (3) UGIB (upper gastrointestinal bleed): Code(s): K92.2 - Gastrointestinal hemorrhage, unspecified Status: Resolved (4) Morbid obesity with BMI of 40.0-44.9, adult: Code(s): E66.01 - Morbid (severe) obesity due to excess calories; Z68.41 - Body mass index (BMI) 40.0-44.9, adult Status: Chronic Assessment and Plan: Not really ambulatory even though he has a prosthesis. Morbid obesity precluding this in my estimation. History of Present Illness Consult details Consult date: 11/16/19 Reason for consult: wound care (Abscess anterior aspect left below-knee amputation) Narrative: Patient is a 63-year-old man who lives in a nursing facility. He is morbidly obese and has had a left below-knee amputation at some point in the past. He came in with GI bleeding. This is improved and found to be due to esophagitis and gastritis. However he was noted to have drainage and signs of infection over his anterior tibial aspect of left below-knee amputation. MRI suggested this is an abscess. He is seen now in consultation regarding the infection in his left below-knee amputation. Patient reports that he has a prosthesis but has not walked with the prosthesis in over a month. He generally gets around with a wheelchair. He is an insulin-dependent diabetic, he has hypertension and obstructive sleep apnea. His amputation was done due to peripheral vascular disease. Review of Systems Review of Systems: All systems reviewed & are unremarkable except as noted in HPI and below Constitutional: Constitutional: Denies chills and Denies fever(s) Cardiovascular: Cardiovascular: Denies chest pain, Denies diaphoresis, Denies dyspnea and Denies paroxysmal nocturnal dyspnea Respiratory: Respiratory: Denies chest congestion, Denies cough and Denies dyspnea Integumentary/Breasts: Skin/Breast: Denies lesions and Denies rash PMFSH Past Medical History Medical History CAD (coronary artery disease) Diabetes Hypertension Obesity TAWANDA (obstructive sleep apnea) Peripheral vascular disease Surgical History Surgical History H/O abdominal surgery Hx of BKA Lt. Family History Family History Father Diabetes mellitus Family history of alcoholism Mother Diabetes mellitus Sibling Family history of emphysema Other Family history of cardiovascular disease Social History Social History Smoking status: Never smoker Alcohol intake: never Substance use: never Gender identity (if verbalized by the patient): Male Spiritual care concerns: No Agree to blood products: Yes Meds Home Medications and Allergies Home Medications Medication Instructions Recorded Confirmed Type Senna-S 1 tab-cap PO DAILY 11/14/19 11/14/19 History acetaminophen [Acetaminophen Extra 500 mg PO Q6H PRN 11/14/19 11/14/19 History Strength] ascorbic acid (vitamin C) 500 mg PO BID 11/14/19 11/14/19 History ergocalciferol (vitamin D2) 50,000 unit PO WEEKLY 11/14/19 11/14/19 History [Vitamin D2] escitalopram oxalate 5 mg PO DAILY 11/14/19 11/14/19 History escitalopram
--- NOTE | 2019-11-16 10:53 | WPDGIPROGNO ---
Progress Note: A&P Additional Plan Patient alert this morning. Vital signs stable. Comfortable at rest. Physical exam reveals HEENT exam to be unremarkable. He is anicteric. Lungs are clear. Heart is without murmur. Abdomen is obese. Bowel sounds are present soft nontender. Extremities reveal left BKA. Skin is less erythematous. Histology from esophagus biopsy is benign esophagitis. Impression 1. Esophagitis. This appears to have contributed to hematemesis. Likely related to GE reflux. No longer bleeding. 2. Left BKA. 3. Cellulitis at stump. Appears to be improving with broad-spectrum antibiotics. Plan to continue proton pump inhibitor. [place] diet is advised. Disposition home when okay with primary care service. Subjective Date/time seen: 11/16/19 10:53 Objective Data Vital Signs Vital Signs: Vital Signs - 24 hr 11/15/19 14:00 11/15/19 22:00 11/16/19 06:00 Temperature 36.9 C 36.8 C 36.9 C Pulse Rate 97 105 H 114 H Respiratory Rate 18 20 20 Blood Pressure 152/78 H 152/92 H 120/72 Pulse Oximetry 96 96 97 11/16/19 07:40 Temperature Pulse Rate 90 Respiratory Rate 24 H Blood Pressure Pulse Oximetry 96 Intake/Output Intake/Output: Intake & Output 11/13/19 11/14/19 11/15/19 11/16/19 23:59 23:59 23:59 23:59 Intake Total 1000 2600 3670 1200 Output Total 1725 1700 900 Balance 7924 853 0608 300 Meds/Results Medications: Active Medications Generic Name Dose Route Start Last Admin Trade Name Freq PRN Reason Stop Dose Admin Clotrimazole 1 applic 11/15/19 12:00 11/16/19 08:10 Lotrisone Cream TOPICAL 1 applic Q12HR PAULIE Administration Dextrose 12.5 gm 11/14/19 01:31 Dextrose 50% Syringe IV PUSH PRN PRN Hypoglycemia Protocol Enoxaparin Sodium 40 mg 11/15/19 21:00 11/16/19 08:10 Lovenox SUB-Q 40 mg Q12HR PAULIE Administration Escitalopram Oxalate 10 mg 11/15/19 09:00 11/16/19 08:09 Lexapro PO 10 mg DAILY PAULIE Administration Escitalopram Oxalate 5 mg 11/15/19 09:00 11/16/19 08:11 Lexapro PO 5 mg DAILY PAULIE Administration Gabapentin 600 mg 11/14/19 17:00 11/16/19 08:11 Neurontin PO 600 mg TID PAULIE Administration Glucagon 1 mg 11/14/19 01:31 Glucagon For Inj IM PRN PRN Hypoglycemia Protocol Glucose 15 gm 11/14/19 01:31 Glutose 15 PO PRN PRN Hypoglycemia Protocol Lactated Ringer's 1,000 mls @ 125 mls/hr 11/13/19 23:20 11/15/19 18:09 Lr - Lactated Ringers Iv IV CONT 0 mls/hr .Q8H PAULIE Infusion Dextrose 1,000 mls @ 100 mls/hr 11/14/19 01:31 Dextrose 5% 1,000 Ml IVPB PRN PRN Hypoglycemia Protocol Cefepime HCl 1 gm in 50 mls @ 100 mls/hr 11/15/19 12:00 11/15/19 22:15 Maxipime 1 Gm/D5w 50 Ml IVPB Not Given Q12HR PAULIE Vancomycin HCl 2,000 mg in 500 mls @ 250 mls/hr 11/16/19 10:00 Vancomycin 2,000 Mg/D5w 500 Ml IVPB Q12H PAULIE Insulin Aspart 3 - 6 units 11/15/19 12:00 11/16/19 08:04 Novolog SUB-Q 5 units TIDWM PAULIE Administration Protocol Insulin Aspart 15 units 11/15/19 16:24 11/16/19 08:06 Novolog SUB-Q 15 units TIDWM PAULIE Administration Insulin Glargine 80 units 11/15/19 10:53 11/15/19 20:51 Lantus SUB-Q 80 units HS PAULIE Administration Lidocaine HCl 0.3 ml 11/14/19 07:39 Xylocaine 2% Local Inj INTRADERM ONCE PRN to numb area Lisinopril 5 mg 11/15/19 09:00 11/16/19 08:08 Prinivil PO 5 mg QAM PAULIE Administration Mirtazapine 30 mg 11/14/19 21:00 11/15/19 20:49 Remeron PO 30 mg HS PAULIE Administration Pantoprazole Sodium 40 mg 11/15/19 09:00 11/16/19 08:12 Protonix PO 40 mg QAM PAULIE Administration Tramadol HCl 50 mg 11/14/19 09:42 Ultram PO Q6H PRN Pain Rated 4-6 Radiology Results: ITS Impressions Abdomen X-Ray 11/13/19 21:35 IMPRESSION: 1: NG tube tip in the stomach. Knee MRI 11/15/19 15
[2019-11-16 12:07] LABS: Glucose Point of Care 253 (65-105)
--- NOTE | 2019-11-16 12:43 | P.OP_ITS ---
Procedure Note - Detailed Date of procedure: 11/16/19 Left below-knee amputation abscess Post-op diagnosis: other (Necrotizing soft tissue infection of the anterior left below the knee amputation) Procedure performed: Excisional debridement of skin and subcutaneous tissue of an area measuring 4 x 2 x 2 cm (16 cubic centimeters) Description of procedure: The patient was placed in the supine position in the bed and a clean drape was placed under his left leg BKA stump. Following this, sterile prep was carried out over the abscess with iodine swabs. The area was draped and local anesthetic with 1% lidocaine was infiltrated directly over the area of the suspected abscess formation. I used a 15 blade scalpel to make a direct incision over the thinning skin on the anterior aspect of the left BKA stump. There was very minimal bloody purulent drainage noted. A culture swab was obtained at this time. The overlying thin, friable skin that was not viable at the area of my initial incision was debrided, creating an elliptical appearing incision. I then used scissors and the scalpel to excisionally debride the necrotic subcutaneous tissue. I then digitally probed the wound and found an area that tracks laterally and superior to the incision. I was then able to debride necrotic tissue from this area. The overlyling skin seemed viable and this only tracked about 1-2 cm in this direction but no purulent drainage was noted in the area of tracking. The overall length of the wound was 4 cm and the width was 2 cm. The overall depth of the wound was 2 cm. Once I had finished the debridement, there was no necrotic subcutaneous tissue left. There was some small vessel oozing but no substantial bleeding. The wound was probed and assessed then again and no remaining purulent fluid or tracks were noted. I then cleaned the anterior BKA stump around the wound with moistened gauze. I packed the wound with 1/4 iodoform gauze tightly due to the slight oozing, and covered this with 4x4 gauze fluffs, then wrapped the stump with two kerlex gauze and an ADAMARIS wrap. He tolerated the procedure well. Anesthesia: local (1% lidocaine) Surgeon: FREDO Finley Window Glass Cutter Off: JUSTINA Bonner Estimated blood loss (mL): 10 Drains: No Packing: Yes (1/4 iodoform packing) Pathology: other (Culture swab sent) Complications: No immediate complications Condition: stable Disposition: no change Findings: Upon entering the suspected abscess cavity, there was very minimal purulent drainage, but rather findings of a necrotic soft tissue infection. The necrotic tissue was excised and no remaining loculations or purulent drainage was present when completed. The wound was then tightly packed with 1/4 iodoform packing and covered with 4x4 gauze fluffs, kerlex, and an ADAMARIS wrap. Discussed wound instructions with the patient and the nurse, Kailey, who was at the bedside assisting.
[2019-11-16 14:34] VITALS: BP 148/71; PULSE 98; RESP 18; TEMP 36.6; O2SAT 98
--- NOTE | 2019-11-16 16:35 | PM.IMPN ---
Progress Note: A&P Assessment and Plan (1) UGIB (upper gastrointestinal bleed): Code(s): K92.2 - Gastrointestinal hemorrhage, unspecified Status: Resolved Assessment and Plan: EGD 11/14 revealed esophagitis gastritis but no active bleeding.. Proton pump inhibitor and advanced diet. Tolerating well Complained of dark stools but does take Pepto-Bismol at home and BUN is normal ,suggesting at least no recent significant upper GI bleed Hgb stable also (2) Cellulitis of left leg: Code(s): L03.116 - Cellulitis of left lower limb Status: Deleted Assessment and Plan: Continue vancomycin and added cefepime since allergy to pen. Wound care opened and cavity present. MR no osteo but 3.8x 1.6 abscess of stump. Surgery ID today , packed and culture to lab (3) Hypertension: Code(s): I10 - Essential (primary) hypertension Status: Acute Assessment and Plan: Blood pressure fair control continue ADAMARIS-inhibitor (4) Diabetes: Code(s): E11.9 - Type 2 diabetes mellitus without complications Status: Chronic Assessment and Plan: A1c 11.6. Blood sugars have run high so will restarted his usual dose of Lantus and added novalog with meals to try to control better to clear infection (5) Peripheral vascular disease: Code(s): I73.9 - Peripheral vascular disease, unspecified Status: Acute Assessment and Plan: Should probably be on anti-platelet and statin but will leave that to primary care (6) TAWANDA (obstructive sleep apnea): Code(s): G47.33 - Obstructive sleep apnea (adult) (pediatric) Status: Acute Assessment and Plan: Nocturnal CPAP (7) DVT prophylaxis: Code(s): Z29.9 - Encounter for prophylactic measures, unspecified Status: Acute Assessment and Plan: Started Lovenox since EGD showed no obvious source of bleeding and on PPI now Subjective Date/time seen: 11/16/19 16:35 Interval history: Date of visit 11/16/2019. 63-year-old hypertensive type 2 diabetic admitted with abdominal pain, hematemesis, and pain and swelling of left below-knee amputation. Found to have cellulitis of the leg and admitted for treatment of the same MR 11/15 abscess of stump but no osteo. Exam Narrative: Exam Narrative: Blood pressure 148/72 pulse is 92 saturating 95% on room air afebrile Pupil equal reactive to light sclera anicteric Lungs clear CV regular rate rhythm Abdomen is soft bowel sounds are present morbidly obese large old midline scar Extremities without edema the left below-knee amputation stumps bandaged after Iand D and not reopened Right leg distal pulses 1+ no edema Neuro alert no focal deficits oriented Objective Data Vital Signs Vital Signs: Vital Signs - 24 hr 11/15/19 22:00 11/16/19 06:00 11/16/19 07:40 Temperature 36.8 C 36.9 C Pulse Rate 105 H 114 H 90 Respiratory Rate 20 20 24 H Blood Pressure 152/92 H 120/72 Pulse Oximetry 96 97 96 11/16/19 08:00 11/16/19 14:34 Temperature 36.6 C Pulse Rate 90 98 Respiratory Rate 24 H 18 Blood Pressure 148/71 H Pulse Oximetry 96 98 Intake/Output Intake/Output: Intake & Output 11/13/19 11/14/19 11/15/19 11/16/19 23:59 23:59 23:59 23:59 Intake Total 1000 2600 3670 1490 Output Total 1725 1700 900 Balance 6661 325 0995 590 Meds/Results Medications: Active Medications Generic Name Dose Route Start Last Admin Trade Name Freq PRN Reason Stop Dose Admin Clotrimazole 1 applic 11/15/19 12:00 11/16/19 08:10 Lotrisone Cream TOPICAL 1 applic Q12HR PAULIE Administration Dextrose 12.5 gm 11/14/19 01:31 Dextrose 50% Syringe IV PUSH PRN PRN Hypoglycemia Protocol Enoxaparin Sodium 40 mg 11/15/19 21:00 11/16/19 08:10 Lovenox SUB-Q 40 mg Q12HR PAULIE Administration Escitalopram Oxalate 10 mg 11/15/19 09:00 11/16/19 08:09 Lexapro PO 10 mg DAILY PAULIE Administration Escitalopram Oxalate 5 mg 11/15/19 09:00 01
[2019-11-16 18:46] LABS: Glucose Point of Care 267 (65-105)
[2019-11-16] MEDS: LIDOCAINE HCL 1% LOCAL INJ 20 ML VIAL (20:00)
[2019-11-16] MEDS: MIRTAZAPINE 30 MG TABLET PO (20:11)
[2019-11-16] MEDS: INSULIN GLARGINE (*BKC) 100 UNITS/ML 80 UNITS SUB-Q (20:12)
[2019-11-16 20:38] LABS: Glucose Point of Care 333 (65-105)
[2019-11-16] MEDS: TOLNAFTATE 1% POWDER 45 GM BTL 1 APPLIC TOPICAL (21:00)
[2019-11-16 22:00] VITALS: BP 158/70; PULSE 91; RESP 18; TEMP 37.1; O2SAT 96
[2019-11-17] MEDS: LACTATED RINGERS 1,000 ML 125 ML IV CONT (05:16)
[2019-11-17 05:59] VITALS: BP 117/76; PULSE 96; RESP 18; TEMP 36.6; O2SAT 96
--- NOTE | 2019-11-17 07:38 | WPDGIPROGNO ---
Progress Note: A&P Additional Plan Patient alert. Comfortable this morning. Tolerating diet. He had surgical drainage of abscess at left amputation stump area yesterday. Physical exam reveals patient to be alert. Comfortable at rest abdomen is benign. Impression 1. Esophagitis. Appears to be improving well with proton pump inhibitor. He is now tolerating regular diet with no pain or bleeding. Other medical problems include cellulitis left lower extremity. Abscess at left amputation stump. Current we followed by surgery and on antibiotics. No further GI workup anticipated. He should remain on anti-reflux measures and proton pump inhibitors indefinitely. Subjective Date/time seen: 11/17/19 07:38 Objective Data Vital Signs Vital Signs: Vital Signs - 24 hr 11/16/19 07:40 11/16/19 08:00 11/16/19 14:34 Temperature 36.6 C Pulse Rate 90 90 98 Respiratory Rate 24 H 24 H 18 Blood Pressure 148/71 H Pulse Oximetry 96 96 98 11/16/19 22:00 11/17/19 05:59 Temperature 37.1 C 36.6 C Pulse Rate 91 96 Respiratory Rate 18 18 Blood Pressure 158/70 H 117/76 Pulse Oximetry 96 96 Intake/Output Intake/Output: Intake & Output 11/14/19 11/15/19 11/16/19 11/17/19 23:59 23:59 23:59 23:59 Intake Total 2600 3670 2930 1570 Output Total 1725 1700 1750 1225 Balance 875 1970 1180 345 Meds/Results Medications: Active Medications Generic Name Dose Route Start Last Admin Trade Name Freq PRN Reason Stop Dose Admin Clotrimazole 1 applic 11/15/19 12:00 11/16/19 08:10 Lotrisone Cream TOPICAL 1 applic Q12HR PAULIE Administration Dextrose 12.5 gm 11/14/19 01:31 Dextrose 50% Syringe IV PUSH PRN PRN Hypoglycemia Protocol Enoxaparin Sodium 40 mg 11/15/19 21:00 11/16/19 20:12 Lovenox SUB-Q 40 mg Q12HR PAULIE Administration Escitalopram Oxalate 10 mg 11/15/19 09:00 11/16/19 08:09 Lexapro PO 10 mg DAILY PAULIE Administration Escitalopram Oxalate 5 mg 11/15/19 09:00 11/16/19 08:11 Lexapro PO 5 mg DAILY PAULIE Administration Gabapentin 600 mg 11/14/19 17:00 11/16/19 20:03 Neurontin PO 600 mg TID PAULIE Administration Glucagon 1 mg 11/14/19 01:31 Glucagon For Inj IM PRN PRN Hypoglycemia Protocol Glucose 15 gm 11/14/19 01:31 Glutose 15 PO PRN PRN Hypoglycemia Protocol Lactated Ringer's 1,000 mls @ 125 mls/hr 11/13/19 23:20 11/17/19 05:16 Lr - Lactated Ringers Iv IV CONT 125 mls/hr .Q8H PAULIE Administration Dextrose 1,000 mls @ 100 mls/hr 11/14/19 01:31 Dextrose 5% 1,000 Ml IVPB PRN PRN Hypoglycemia Protocol Cefepime HCl 1 gm in 50 mls @ 100 mls/hr 11/15/19 12:00 11/16/19 20:40 Maxipime 1 Gm/D5w 50 Ml IVPB Infused Q12HR PAULIE Infusion Vancomycin HCl 2,000 mg in 500 mls @ 250 mls/hr 11/16/19 10:00 11/16/19 23:30 Vancomycin 2,000 Mg/D5w 500 Ml IVPB Infused Q12H PAULIE Infusion Insulin Aspart 3 - 6 units 11/15/19 12:00 11/16/19 18:53 Novolog SUB-Q 3 units TIDWM PAULIE Administration Protocol Insulin Aspart 15 units 11/15/19 16:24 11/16/19 18:53 Novolog SUB-Q 15 units TIDWM PAULIE Administration Insulin Glargine 80 units 11/15/19 10:53 11/16/19 20:12 Lantus SUB-Q 80 units HS PAULIE Administration Lidocaine HCl 0.3 ml 11/14/19 07:39 Xylocaine 2% Local Inj INTRADERM ONCE PRN to numb area Lisinopril 5 mg 11/15/19 09:00 11/16/19 08:08 Prinivil PO 5 mg QAM PAULIE Administration Mirtazapine 30 mg 11/14/19 21:00 11/16/19 20:11 Remeron PO 30 mg HS PAULIE Administration Pantoprazole Sodium 40 mg 11/15/19 09:00 11/16/19 08:12 Protonix PO 40 mg QAM PAULIE Administration Tolnaftate 1 applic 11/16/19 21:00 11/16/19 21:00 Tolnaftate 1% Powder TOPICAL 1 applic Q12HR PAULIE Administration Tramadol HCl 50 mg 11/14/19 09:42 Ultram PO Q6H PRN Pain Rated 4-6 Radiology Results: ITS Impr
[2019-11-17] MEDS: INSULIN ASPART (*BKC) 100 UNITS/ML 15 UNITS SUB-Q ×2 (08:04→17:19)
[2019-11-17] MEDS: PANTOPRAZOLE 40 MG TABLET PO (08:07)
[2019-11-17] MEDS: ENOXAPARIN 40 MG/0.4 ML SYRINGE SUB-Q ×2 (08:07→19:57)
[2019-11-17] MEDS: ESCITALOPRAM OXALATE 5 MG TABLET PO (08:07)
[2019-11-17] MEDS: TOLNAFTATE 1% POWDER 45 GM BTL 1 APPLIC TOPICAL ×2 (08:08→19:58)
[2019-11-17] MEDS: ESCITALOPRAM OXALATE 10 MG TABLET PO (08:08)
[2019-11-17] MEDS: GABAPENTIN 300 MG CAPSULE 600 MG PO ×3 (08:08→16:46)
[2019-11-17] MEDS: lisinopriL 5 MG TABLET PO (08:08)
[2019-11-17] MEDS: BETAMETHASONE/CLOTRIMAZOLE CR 15 GM TUBE 1 APPLIC TOPICAL ×2 (08:09→19:57)
[2019-11-17 09:24] LABS: Glucose Point of Care 150 (65-105)
--- NOTE | 2019-11-17 10:20 | PM.PNGS ---
Progress Note: A&P Assessment and Plan (1) Diabetes: Code(s): E11.9 - Type 2 diabetes mellitus without complications Status: Chronic Assessment and Plan: Not well controlled. Better diabetic control with definitely help with healing of the abscess. (2) Morbid obesity with BMI of 40.0-44.9, adult: Code(s): E66.01 - Morbid (severe) obesity due to excess calories; Z68.41 - Body mass index (BMI) 40.0-44.9, adult Status: Chronic Assessment and Plan: Not really ambulatory even though he has a prosthesis. Morbid obesity precluding this in my estimation. 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 Status post debridement of a necrotic tissue anterior lateral surface of left BKA stump. Now opened air with packing and should begin healing. Previous MR showed no osteomyelitis. Will plan to proceed with changing dressings to silver gel plus gauze packing or silver rope when patient returns to [facility]. Still has some cellulitis of may benefit from awaiting new cultures taken yesterday prior to changing to oral antibiotics. Subjective Subjective Date/Time Seen: 11/17/19 10:20 Post Op day: 1 Patient reports: no new complaints Interval history: Patient denies much pain in his left stump. Has had no problems with the site where the debridement was performed yesterday. Review of Systems Constitutional: Constitutional: Denies chills and Denies fever(s) Integumentary/Breasts: Skin/Breast: Denies lesions and Denies rash Exam Const: General: comfortable, no acute distress, alert and awake Resp: Effort & Inspection: normal respiratory effort, no audible wheezes, no cough and no pursed lip breathing Auscultation: clear to auscultation bilaterally Skin: General skin exam: no induration and other (no palpable nodules) Lesions: no lesions Rashes: no rashes Nails: no clubbing and no pitting Neuro: Speech: normal speech Extrem: General: clubbing Left lower extremity: lower leg (Left below-knee amputation) Details: erythema, localized swelling, warmth and other ( Approximate 2.5 x 1.5 cm opening leading to a wound with a depth of about 1.5 cm.) Other: Dressing at debridement site changed with the nurse this date. I removed the old quarter-inch iodoform packing and repacked with this since it did not appear the patient will be discharged today. From the opening there is a subcutaneous tunnel that goes cephalad and lateral that will need to be packed. We covered the packing with a Mepilex. The skin surrounding this abscess is bright red with some remaining cellulitis. His skin of the entire stump appears to be very dry. Nurse will begin applying standard moisturizing lotion b.i.d.. Objective Data Vital Signs Vital Signs: Vital Signs - 24 hr 11/16/19 14:34 11/16/19 22:00 11/17/19 05:59 Temperature 36.6 C 37.1 C 36.6 C Pulse Rate 98 91 96 Respiratory Rate 18 18 18 Blood Pressure 148/71 H 158/70 H 117/76 Pulse Oximetry 98 96 96 Intake/Output Intake/Output: Intake & Output 11/14/19 11/15/19 11/16/19 11/17/19 23:59 23:59 23:59 23:59 Intake Total 2600 3670 2930 1570 Output Total 1725 1700 1750 1225 Balance 875 1970 1180 345 Meds/Results Medications: Active Medications Generic Name Dose Route Start Last Admin Trade Name Freq PRN Reason Stop Dose Admin Clotrimazole 1 applic 11/15/19 12:00 11/17/19 08:09 Lotrisone Cream TOPICAL 1 applic Q12HR PAULIE Administration Dextrose 12.5 gm 11/14/19 01:31 Dextrose 50% Syringe IV PUSH PRN PRN Hypoglycemia Protocol Enoxaparin Sodium 40 mg 11/15/19 21:00 11/17/19 08:07 Lovenox SUB-Q 40 mg Q12HR PAULIE Administration Escitalopram Oxalate 10 mg 11/15/19 09:00 11/17/19 08:08 Lexapro PO 10 mg
[2019-11-17 12:06] LABS: Glucose Point of Care 209 (65-105)
[2019-11-17 14:00] VITALS: BP 146/81; PULSE 85; RESP 18; TEMP 36.4; O2SAT 98
--- NOTE | 2019-11-17 15:03 | PM.IMPN ---
Progress Note: A&P Assessment and Plan (1) UGIB (upper gastrointestinal bleed): Code(s): K92.2 - Gastrointestinal hemorrhage, unspecified Status: Resolved Assessment and Plan: EGD 11/14 revealed esophagitis gastritis but no active bleeding.. Proton pump inhibitor and advanced diet. Tolerating well Complained of dark stools but does take Pepto-Bismol at home and BUN is normal ,suggesting at least no recent significant upper GI bleed Hgb stable also (2) Cellulitis of left leg: Code(s): L03.116 - Cellulitis of left lower limb Status: Deleted Assessment and Plan: . Wound care opened and cavity present. MR no osteo but 3.8x 1.6 abscess of stump. Surgery ID 11/16 , packing changed by surg today, and culture pending but original culture MSSA and strep, IV out so change to ceftriaxone IM (3) Hypertension: Code(s): I10 - Essential (primary) hypertension Status: Acute Assessment and Plan: Blood pressure fair control continue ADAMARIS-inhibitor (4) Diabetes: Code(s): E11.9 - Type 2 diabetes mellitus without complications Status: Chronic Assessment and Plan: A1c 11.6. Blood sugars have run high so will restarted his usual dose of Lantus and added novalog with meals to try to control better to clear infection (5) Peripheral vascular disease: Code(s): I73.9 - Peripheral vascular disease, unspecified Status: Acute Assessment and Plan: Should probably be on anti-platelet and statin but will leave that to primary care (6) TAWANDA (obstructive sleep apnea): Code(s): G47.33 - Obstructive sleep apnea (adult) (pediatric) Status: Acute Assessment and Plan: Nocturnal CPAP (7) DVT prophylaxis: Code(s): Z29.9 - Encounter for prophylactic measures, unspecified Status: Acute Assessment and Plan: Started Lovenox since EGD showed no obvious source of bleeding and on PPI now Subjective Date/time seen: 11/17/19 15:03 Interval history: Date of visit 11/17/2019. 63-year-old hypertensive type 2 diabetic admitted with abdominal pain, hematemesis, and pain and swelling of left below-knee amputation. Found to have cellulitis of the leg and admitted for treatment of the same MR 11/15 abscess of stump but no osteo. surg drained and debrided 11/16 Exam Narrative: Exam Narrative: Blood pressure 118/76 pulse is 86 saturating 96% on room air afebrile Pupil equal reactive to light sclera anicteric Lungs clear CV regular rate rhythm Abdomen is soft bowel sounds are present morbidly obese large old midline scar Extremities without edema the left below-knee amputation stumps bandaged after Iand D and not reopened, less erythematous Right leg distal pulses 1+ no edema Neuro alert no focal deficits oriented Objective Data Vital Signs Vital Signs: Vital Signs - 24 hr 11/16/19 22:00 11/17/19 05:59 Temperature 37.1 C 36.6 C Pulse Rate 91 96 Respiratory Rate 18 18 Blood Pressure 158/70 H 117/76 Pulse Oximetry 96 96 Intake/Output Intake/Output: Intake & Output 11/14/19 11/15/19 11/16/19 11/17/19 23:59 23:59 23:59 23:59 Intake Total 2600 3670 2930 2960 Output Total 1725 1700 1750 1225 Balance 875 1970 1180 1735 Meds/Results Medications: Active Medications Generic Name Dose Route Start Last Admin Trade Name Freq PRN Reason Stop Dose Admin Clotrimazole 1 applic 11/15/19 12:00 11/17/19 08:09 Lotrisone Cream TOPICAL 1 applic Q12HR PAULIE Administration Dextrose 12.5 gm 11/14/19 01:31 Dextrose 50% Syringe IV PUSH PRN PRN Hypoglycemia Protocol Enoxaparin Sodium 40 mg 11/15/19 21:00 11/17/19 08:07 Lovenox SUB-Q 40 mg Q12HR PAULIE Administration Escitalopram Oxalate 10 mg 11/15/19 09:00 11/17/19 08:08 Lexapro PO 10 mg DAILY PAULIE Administration Escitalopram Oxalate 5 mg 11/15/19 09:00 11/17/19 08:07 Lexapro PO 5 mg DAILY PAULIE Administration Gabapentin 600 mg
[2019-11-17 16:50] LABS: Glucose Point of Care 303 (65-105)
[2019-11-17] MEDS: INSULIN ASPART (*BKC) 100 UNITS/ML SUB-Q (17:19)
[2019-11-17 19:40] LABS: Glucose Point of Care 289 (65-105)
[2019-11-17] MEDS: INSULIN GLARGINE (*BKC) 100 UNITS/ML 80 UNITS SUB-Q (19:57)
[2019-11-17] MEDS: MIRTAZAPINE 30 MG TABLET PO (19:58)
[2019-11-17 22:00] VITALS: BP 155/77; PULSE 90; RESP 18; TEMP 37.4; O2SAT 97
[2019-11-17 22:16] LABS: Vancomycin Trough 13.1 ug/mL (10.0-20.0)
[2019-11-18 05:50] VITALS: BP 142/71; PULSE 98; RESP 18; TEMP 36.8; O2SAT 94
[2019-11-18 06:54] LABS: Glucose Point of Care 166 (65-105)
[2019-11-18] MEDS: INSULIN ASPART (*BKC) 100 UNITS/ML 15 UNITS SUB-Q ×3 (07:25→16:56)
[2019-11-18] MEDS: PANTOPRAZOLE 40 MG TABLET PO (08:47)
[2019-11-18] MEDS: BETAMETHASONE/CLOTRIMAZOLE CR 15 GM TUBE 1 APPLIC TOPICAL ×2 (08:47→21:14)
[2019-11-18] MEDS: ENOXAPARIN 40 MG/0.4 ML SYRINGE SUB-Q ×2 (08:47→21:14)
[2019-11-18] MEDS: ESCITALOPRAM OXALATE 10 MG TABLET PO (08:48)
[2019-11-18] MEDS: GABAPENTIN 300 MG CAPSULE 600 MG PO ×3 (08:48→16:25)
[2019-11-18] MEDS: lisinopriL 5 MG TABLET PO (08:48)
[2019-11-18] MEDS: ESCITALOPRAM OXALATE 5 MG TABLET PO (08:48)
[2019-11-18] MEDS: TOLNAFTATE 1% POWDER 45 GM BTL 1 APPLIC TOPICAL ×2 (08:48→21:14)
--- NOTE | 2019-11-18 09:49 | PM.PNGS ---
Progress Note: A&P Assessment and Plan (1) Diabetes: Code(s): E11.9 - Type 2 diabetes mellitus without complications Status: Chronic Assessment and Plan: Not well controlled. Better diabetic control with definitely help with healing of the abscess. (2) Morbid obesity with BMI of 40.0-44.9, adult: Code(s): E66.01 - Morbid (severe) obesity due to excess calories; Z68.41 - Body mass index (BMI) 40.0-44.9, adult Status: Chronic Assessment and Plan: Not really ambulatory even though he has a prosthesis. Morbid obesity precluding this in my estimation. 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 Status post debridement of a necrotic tissue anterior lateral surface of left BKA stump. Now opened and draining with packing and should begin healing. Previous MR showed no osteomyelitis. Will plan to proceed with changing dressings to silver gel plus gauze packing when patient returns to [facility]. Still has some improving cellulitis. We are awaiting new cultures taken Tuesday to guide our change to oral antibiotics. May return to the [facility] today from the surgical standpoint. Follow up with Dr. Vela at the [place] [facility] late this week. Subjective Subjective Date/Time Seen: 11/18/19 09:49 Post Op day: 2 Patient reports: feels better Interval history: Nurses report cellulitis somewhat better on patient's stump. Patient not nauseated tolerating his diet. Not much pain at the site of the abscess. Review of Systems Constitutional: Constitutional: Denies chills and Denies fever(s) Cardiovascular: Cardiovascular: Denies chest pain, Denies diaphoresis, Denies dyspnea and Denies paroxysmal nocturnal dyspnea Integumentary/Breasts: Skin/Breast: Denies lesions and Denies rash Exam Const: General: comfortable, no acute distress, alert and awake Resp: Effort & Inspection: normal respiratory effort, no audible wheezes, no cough and no pursed lip breathing Auscultation: clear to auscultation bilaterally Skin: General skin exam: no induration and other (no palpable nodules) Lesions: no lesions Rashes: no rashes Nails: no clubbing and no pitting Extrem: General: clubbing Left lower extremity: lower leg (Left below-knee amputation) Details: erythema, localized swelling, warmth and other ( Approximate 2.5 x 1.5 cm opening leading to a wound with a depth of about 1.5 cm.) Other: Dressing at debridement site changed with the nurse this date. I removed the old quarter-inch iodoform packing and repacked with this since it did not appear the patient will be discharged today. From the opening there is a subcutaneous tunnel that goes cephalad and lateral that will need to be packed. We covered the packing with a Mepilex. The skin surrounding this abscess is bright red with some remaining cellulitis. His skin of the entire stump appears to be very dry. Nurse will begin applying standard moisturizing lotion b.i.d.. Objective Data Vital Signs Vital Signs: Vital Signs - 24 hr 11/17/19 14:00 11/17/19 22:00 11/18/19 05:50 Temperature 36.4 C 37.4 C 36.8 C Pulse Rate 85 90 98 Respiratory Rate 18 18 18 Blood Pressure 146/81 H 155/77 H 142/71 H Pulse Oximetry 98 97 94 Intake/Output Intake/Output: Intake & Output 11/15/19 11/16/19 11/17/19 11/18/19 23:59 23:59 23:59 23:59 Intake Total 3670 2930 3990 940 Output Total 1700 1750 2900 1750 Balance 1970 1180 1090 -810 Meds/Results Medications: Active Medications Generic Name Dose Route Start Last Admin Trade Name Freq PRN Reason Stop Dose Admin Ceftriaxone Sodium 1 gm 11/18/19 11:55 Rocephin IM 11/18/19 11:56 ONCE ONE Clotrimazole 1 applic 11/15/19 12:00 11/18/19 08:47 Lotrisone Cream TOPICAL 1 applic Q12HR [facility] A
[2019-11-18] MEDS: SILVERGEL (ELTA) 45 ML 1 APPLIC TOPICAL (10:59)
[2019-11-18 12:01] LABS: Glucose Point of Care 238 (65-105)
[2019-11-18] MEDS: INSULIN ASPART (*BKC) 100 UNITS/ML SUB-Q (12:29)
[2019-11-18] MEDS: cefTRIAXone 1 GM VIAL IM (12:30)
[2019-11-18 14:00] VITALS: BP 142/88; PULSE 86; RESP 18; TEMP 36.6; O2SAT 99
--- NOTE | 2019-11-18 14:34 | WPDGIPROGNO ---
Progress Note: A&P Additional Plan Patient comfortable today. Sitting on the side of bed eating. He denies any ongoing chest pain. He denies heartburn. He denies any signs of blood loss. No nausea vomiting. Physical exam reveals him to be alert. Comfortable at rest. Lungs are clear. Heart is without murmur. Abdomen is obese bowel sounds are present soft and nontender. Impression 1. Erosive esophagitis. Clinically appears quite improved. Plan is to continue proton pump inhibitors. [place] diet is suggested advanced to regular as tolerated. No further GI workup plan. Problem 2. Left [id number] amputation with cellulitis and abscess. This appears to be responding to antibiotics. Further treatment per primary care service. Subjective Date/time seen: 11/18/19 14:34 Objective Data Vital Signs Vital Signs: Vital Signs - 24 hr 11/17/19 22:00 11/18/19 05:50 Temperature 37.4 C 36.8 C Pulse Rate 90 98 Respiratory Rate 18 18 Blood Pressure 155/77 H 142/71 H Pulse Oximetry 97 94 Intake/Output Intake/Output: Intake & Output 11/15/19 11/16/19 11/17/19 11/18/19 23:59 23:59 23:59 23:59 Intake Total 3670 2930 3990 1180 Output Total 1700 1750 2900 1750 Balance 1970 1180 1090 -570 Meds/Results Medications: Active Medications Generic Name Dose Route Start Last Admin Trade Name Freq PRN Reason Stop Dose Admin Clotrimazole 1 applic 11/15/19 12:00 11/18/19 08:47 Lotrisone Cream TOPICAL 1 applic Q12HR PAULIE Administration Dextrose 12.5 gm 11/14/19 01:31 Dextrose 50% Syringe IV PUSH PRN PRN Hypoglycemia Protocol Enoxaparin Sodium 40 mg 11/15/19 21:00 11/18/19 08:47 Lovenox SUB-Q 40 mg Q12HR PAULIE Administration Escitalopram Oxalate 10 mg 11/15/19 09:00 11/18/19 08:48 Lexapro PO 10 mg DAILY PAULIE Administration Escitalopram Oxalate 5 mg 11/15/19 09:00 11/18/19 08:48 Lexapro PO 5 mg DAILY PAULIE Administration Gabapentin 600 mg 11/14/19 17:00 11/18/19 12:41 Neurontin PO 600 mg TID PAULIE Administration Glucagon 1 mg 11/14/19 01:31 Glucagon For Inj IM PRN PRN Hypoglycemia Protocol Glucose 15 gm 11/14/19 01:31 Glutose 15 PO PRN PRN Hypoglycemia Protocol Dextrose 1,000 mls @ 100 mls/hr 11/14/19 01:31 Dextrose 5% 1,000 Ml IVPB PRN PRN Hypoglycemia Protocol Insulin Aspart 3 - 6 units 11/15/19 12:00 11/18/19 12:29 Novolog SUB-Q 3 units TIDWM PAULIE Administration Protocol Insulin Aspart 15 units 11/15/19 16:24 11/18/19 12:29 Novolog SUB-Q 15 units TIDWM PAULIE Administration Insulin Glargine 80 units 11/15/19 10:53 11/17/19 19:57 Lantus SUB-Q 80 units HS PAULIE Administration Lidocaine HCl 0.3 ml 11/14/19 07:39 Xylocaine 2% Local Inj INTRADERM ONCE PRN to numb area Lisinopril 5 mg 11/15/19 09:00 11/18/19 08:48 Prinivil PO 5 mg QAM PAULIE Administration Mirtazapine 30 mg 11/14/19 21:00 11/17/19 19:58 Remeron PO 30 mg HS PAULIE Administration Pantoprazole Sodium 40 mg 11/15/19 09:00 11/18/19 08:47 Protonix PO 40 mg QAM PAULIE Administration Silver Nitrate 1 applic 11/18/19 09:00 11/18/19 10:59 Silvergel TOPICAL 1 applic DAILY PAULIE Administration Tolnaftate 1 applic 11/16/19 21:00 11/18/19 08:48 Tolnaftate 1% Powder TOPICAL 1 applic Q12HR PAULIE Administration Tramadol HCl 50 mg 11/14/19 09:42 Ultram PO Q6H PRN Pain Rated 4-6 Radiology Results: ITS Impressions Abdomen X-Ray 11/13/19 21:35 IMPRESSION: 1: NG tube tip in the stomach. Knee MRI 11/15/19 15:10 IMPRESSION: 1. No evidence of osteomyelitis. 2. 3.8 x 0.9 x 1.6 cm subcutaneous abscess in the anterior stump. Knee X-Ray 11/15/19 15:19 IMPRESSION: 1. No evidence of osteomyelitis. Labs Labs: Laboratory Results - last 24 hr 11/17/19 11/17/19 11/17/19 16:46 19:
--- NOTE | 2019-11-18 16:19 | PM.IMPN ---
Progress Note: A&P Assessment and Plan (1) UGIB (upper gastrointestinal bleed): Code(s): K92.2 - Gastrointestinal hemorrhage, unspecified Status: Resolved Assessment and Plan: EGD 11/14 revealed esophagitis gastritis but no active bleeding.. Proton pump inhibitor and advanced diet. Tolerating well Complained of dark stools but does take Pepto-Bismol at home and BUN is normal ,suggesting at least no recent significant upper GI bleed Hgb stable also recheck am (2) Cellulitis of left leg: Code(s): L03.116 - Cellulitis of left lower limb Status: Deleted Assessment and Plan: . Wound care opened and cavity present. MR no osteo but 3.8x 1.6 abscess of stump. Surgery ID 11/16 , packing changed by surg today, and culture pending but original culture MSSA and strep, IV out so change to ceftriaxone IM 11/17 (3) Hypertension: Code(s): I10 - Essential (primary) hypertension Status: Acute Assessment and Plan: Blood pressure fair control continue ADAMARIS-inhibitor (4) Diabetes: Code(s): E11.9 - Type 2 diabetes mellitus without complications Status: Chronic Assessment and Plan: A1c 11.6. Blood sugars have run high so will restarted his usual dose of Lantus and added novalog with meals to try to control better to clear infection FBS 166 better last 2 days (5) Peripheral vascular disease: Code(s): I73.9 - Peripheral vascular disease, unspecified Status: Acute Assessment and Plan: Should probably be on anti-platelet and statin but will leave that to primary care (6) TAWANDA (obstructive sleep apnea): Code(s): G47.33 - Obstructive sleep apnea (adult) (pediatric) Status: Acute Assessment and Plan: Nocturnal CPAP (7) DVT prophylaxis: Code(s): Z29.9 - Encounter for prophylactic measures, unspecified Status: Acute Assessment and Plan: Started Lovenox since EGD showed no obvious source of bleeding and on PPI now Subjective Date/time seen: 11/18/19 16:19 Interval history: Date of visit 11/18/2019. 63-year-old hypertensive type 2 diabetic admitted with abdominal pain, hematemesis, and pain and swelling of left below-knee amputation. Found to have cellulitis of the leg and admitted for treatment of the same MR 11/15 abscess of stump but no osteo. surg drained and debrided 11/16. continues to do well Exam Narrative: Exam Narrative: Blood pressure 146/72 pulse is 90 saturating 94% on room air afebrile Pupil equal reactive to light sclera anicteric Lungs clear CV regular rate rhythm Abdomen is soft bowel sounds are present morbidly obese, large old midline scar Extremities without edema the left below-knee amputation stumps after Iand D and clean open wound less erythematous Right leg distal pulses 1+ no edema Neuro alert no focal deficits oriented Objective Data Vital Signs Vital Signs: Vital Signs - 24 hr 11/17/19 22:00 11/18/19 05:50 Temperature 37.4 C 36.8 C Pulse Rate 90 98 Respiratory Rate 18 18 Blood Pressure 155/77 H 142/71 H Pulse Oximetry 97 94 Intake/Output Intake/Output: Intake & Output 11/15/19 11/16/19 11/17/19 11/18/19 23:59 23:59 23:59 23:59 Intake Total 3670 2930 3990 1180 Output Total 1700 1750 2900 1750 Balance 1970 1180 1090 -570 Meds/Results Medications: Active Medications Generic Name Dose Route Start Last Admin Trade Name Freq PRN Reason Stop Dose Admin Ceftriaxone Sodium 1 gm 11/19/19 11:00 Rocephin IM 11/19/19 11:01 ONCE ONE Clotrimazole 1 applic 11/15/19 12:00 11/18/19 08:47 Lotrisone Cream TOPICAL 1 applic Q12HR PAULIE Administration Dextrose 12.5 gm 11/14/19 01:31 Dextrose 50% Syringe IV PUSH PRN PRN Hypoglycemia Protocol Enoxaparin Sodium 40 mg 11/15/19 21:00 11/18/19 08:47 Lovenox SUB-Q 40 mg Q12HR PAULIE Administration Escitalopram Oxalate 10 mg 11/15/19 09:00 11/18/19 08:48 Lexapro PO 10 mg DAILY PAULIE Ad
[2019-11-18 16:41] LABS: Glucose Point of Care 194 (65-105)
[2019-11-18] MEDS: MIRTAZAPINE 30 MG TABLET PO (21:14)
[2019-11-18] MEDS: INSULIN GLARGINE (*BKC) 100 UNITS/ML 80 UNITS SUB-Q (21:15)
[2019-11-18 22:10] LABS: Glucose Point of Care 239 (65-105)
[2019-11-18 22:50] VITALS: BP 143/66; PULSE 93; RESP 20; TEMP 36.3; O2SAT 94
[2019-11-19 06:31] LABS: Basophils Percent Auto 0.5 % (0.2-1.2); Eosinophils Absolute Auto 0.2 K/mm3 (0-0.3); Eosinophils Percent Auto 2.6 % (0-4.4); Hematocrit 34.7 % (42.0-52.0); Hemoglobin 11.1 g/dL (14.0-18.0); Immature Granulocyte Absolute 0.04 K/mm3 (0.00-0.031); Immature Granulocyte Percent A 0.6 % (0-0.5); Lymphocytes Absolute Auto 2.07 K/mm3 (0.9-3.2); Mean Corpuscular Hemoglobin 30.2 pg (26-34); Mean Corpuscular Volume 94.3 fl (80-100); Mean Platelet Volume 8.1 fl (7.4-10.4); Monocytes Absolute Auto 0.9 K/mm3 (0.1-0.6); Monocytes Percent Auto 13.5 % (2.6-8.5); Neutrophils Absolute Auto 3.3 K/mm3 (1.3-6.7); Neutrophils Percent Auto 50.8 % (45.5-73.1); Platelet Count Result 246 k/mm3 (150-375); Red Blood Count 3.68 M/mm3 (4.6-6.20); Red Cell Distribution Width 13.3 % (11.5-14.5); White Blood Count 6.5 K/mm3 (4.5-10.0)
[2019-11-19 06:41] VITALS: BP 148/80; PULSE 69; RESP 20; TEMP 36.5; O2SAT 93
[2019-11-19 06:51] LABS: Blood Urea Nitrogen 12 mg/dL (9-20); Calcium 8.8 mg/dL (8.4-10.2); Carbon Dioxide 30 mmol/L (22-30); Chloride 97 mmol/L (98-107); Estimated CRCL calculation 165 ml/min; Estimated Glomerular Filt Rate > 60; Glucose 149 mg/dL (75-110); Potassium 3.9 mmol/L (3.4-5.0); Sodium 133 mmol/L (137-145)
[2019-11-19 07:08] LABS: Glucose Point of Care 143 (65-105)
[2019-11-19] MEDS: INSULIN ASPART (*BKC) 100 UNITS/ML 15 UNITS SUB-Q ×2 (07:50→12:19)
[2019-11-19] MEDS: ESCITALOPRAM OXALATE 5 MG TABLET PO (07:53)
[2019-11-19] MEDS: TOLNAFTATE 1% POWDER 45 GM BTL 1 APPLIC TOPICAL (07:53)
[2019-11-19] MEDS: GABAPENTIN 300 MG CAPSULE 600 MG PO ×2 (07:54→12:19)
[2019-11-19] MEDS: lisinopriL 5 MG TABLET PO (07:54)
[2019-11-19] MEDS: PANTOPRAZOLE 40 MG TABLET PO (07:54)
[2019-11-19] MEDS: ESCITALOPRAM OXALATE 10 MG TABLET PO (07:54)
[2019-11-19] MEDS: ENOXAPARIN 40 MG/0.4 ML SYRINGE SUB-Q (07:54)
[2019-11-19] MEDS: EUCERIN CREAM 120 GM JAR 1 APPLIC TOPICAL (07:55)
[2019-11-19] MEDS: BETAMETHASONE/CLOTRIMAZOLE CR 15 GM TUBE 1 APPLIC TOPICAL (07:56)
[2019-11-19] MEDS: SILVERGEL (ELTA) 45 ML 1 APPLIC TOPICAL (07:58)
--- NOTE | 2019-11-19 08:16 | PM.PNGS ---
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 Now has chronic wound over anterior tibial stump. No bone exposed. Very clean. Continue silver gel dressings and wraps with Kerlix and 4 in Teodoro wrap daily. Should heal but this will take a long time. (2) Fungal dermatitis: Code(s): B36.9 - Superficial mycosis, unspecified Status: Acute Assessment and Plan: Posterior thigh shows fungal infection with excoriation and erythema. Continue Tolnaftate powder q.12 hours (3) Morbid obesity with BMI of 40.0-44.9, adult: Code(s): E66.01 - Morbid (severe) obesity due to excess calories; Z68.41 - Body mass index (BMI) 40.0-44.9, adult Status: Chronic (4) Diabetes: Code(s): E11.9 - Type 2 diabetes mellitus without complications Status: Chronic (5) Peripheral vascular disease: Code(s): I73.9 - Peripheral vascular disease, unspecified Status: Acute Subjective Subjective Date/Time Seen: 11/19/19 08:16 NO NEW COMPLAINTS Review of Systems Constitutional: Constitutional: Denies chills and Denies fever(s) Exam Extrem: Left lower extremity: hip/thigh ( posterior thigh shows excoriation and erythema) Details: abnormal to inspection ( excoriation and erythema suggestive of yeast infection) Details: erythematous and lower leg ( anterior wound left BK amp is clean and granulating) Objective Data Vital Signs Vital Signs: Vital Signs - 24 hr 11/18/19 14:00 11/18/19 22:50 11/19/19 06:41 Temperature 36.6 C 36.3 C L 36.5 C Pulse Rate 86 93 69 Respiratory Rate 18 20 20 Blood Pressure 142/88 H 143/66 H 148/80 H Pulse Oximetry 99 94 93 Intake/Output Intake/Output: Intake & Output 11/16/19 11/17/19 11/18/19 11/19/19 23:59 23:59 23:59 23:59 Intake Total 2930 3990 2320 650 Output Total 1750 2900 2850 1700 Balance 1180 1090 -530 -1050 Meds/Results Medications: Active Medications Generic Name Dose Route Start Last Admin Trade Name Freq PRN Reason Stop Dose Admin Ceftriaxone Sodium 1 gm 11/19/19 11:00 Rocephin IM 11/19/19 11:01 ONCE ONE Clotrimazole 1 applic 11/15/19 12:00 11/19/19 07:56 Lotrisone Cream TOPICAL 1 applic Q12HR PAULIE Administration Dextrose 12.5 gm 11/14/19 01:31 Dextrose 50% Syringe IV PUSH PRN PRN Hypoglycemia Protocol Enoxaparin Sodium 40 mg 11/15/19 21:00 11/19/19 07:54 Lovenox SUB-Q 40 mg Q12HR PAULIE Administration Escitalopram Oxalate 10 mg 11/15/19 09:00 11/19/19 07:54 Lexapro PO 10 mg DAILY PAULIE Administration Escitalopram Oxalate 5 mg 11/15/19 09:00 11/19/19 07:53 Lexapro PO 5 mg DAILY PAULIE Administration Gabapentin 600 mg 11/14/19 17:00 11/19/19 07:54 Neurontin PO 600 mg TID PAULIE Administration Glucagon 1 mg 11/14/19 01:31 Glucagon For Inj IM PRN PRN Hypoglycemia Protocol Glucose 15 gm 11/14/19 01:31 Glutose 15 PO PRN PRN Hypoglycemia Protocol Dextrose 1,000 mls @ 100 mls/hr 11/14/19 01:31 Dextrose 5% 1,000 Ml IVPB PRN PRN Hypoglycemia Protocol Insulin Aspart 3 - 6 units 11/15/19 12:00 11/19/19 07:08 Novolog SUB-Q Not Given TIDWM PAULIE Protocol Insulin Aspart 15 units 11/15/19 16:24 11/19/19 07:50 Novolog SUB-Q 15 units TIDWM PAULIE Administration Insulin Glargine 80 units 11/15/19 10:53 11/18/19 21:15 Lantus SUB-Q 80 units HS PAULIE Administration Lidocaine HCl 0.3 ml 11/14/19 07:39 Xylocaine 2% Local Inj INTRADERM ONCE PRN to numb area Lisinopril 5 mg 11/15/19 09:00 11/19/19 07:54 Prinivil PO 5 mg QAM PAULIE Administration Mirtazapine 30 mg 11/14/19 21:00 11/18/19 21:
[2019-11-19 12:12] LABS: Glucose Point of Care 216 (65-105)
[2019-11-19] MEDS: cefTRIAXone 1 GM VIAL IM (12:16)
[2019-11-19] MEDS: INSULIN ASPART (*BKC) 100 UNITS/ML SUB-Q (12:19)
[2019-11-19 14:41] VITALS: BP 153/68; PULSE 93; RESP 16; TEMP 36.8; O2SAT 95
--- NOTE | 2019-11-21 13:56 | PM.DS ---
DS: Diagnosis Admitting Diagnosis Admitting Diagnosis: Gastrointestinal hemorrhage, unspecified Discharge Diagnosis (1) UGIB (upper gastrointestinal bleed): Code(s): K92.2 - Gastrointestinal hemorrhage, unspecified Status: Resolved Assessment and Plan: EGD 11/14 revealed esophagitis gastritis but no active bleeding.. Proton pump inhibitor and advanced diet. Tolerating well Complained of dark stools but does take Pepto-Bismol at home and BUN is normal ,suggesting at least no recent significant upper GI bleed Hgb stable at 11.1 day of discharge (2) Cellulitis of left leg: Code(s): L03.116 - Cellulitis of left lower limb Status: Deleted Assessment and Plan: . Wound care opened and cavity present. MR no osteo but 3.8x 1.6 abscess of stump. Surgery ID 11/[id number] , packing changed by surg today, and culture MSSA and strep, IV out so change to ceftriaxone IM /,2/2 and2/3 day of discharge. Ordered 7 days more of levafloxacin on discharge. will follow up in wound clinic with Dr Canales with in the week (3) Hypertension: Code(s): I10 - Essential (primary) hypertension Status: Acute Assessment and Plan: Blood pressure fair control continued ADAMARIS-inhibitor (4) Diabetes: Code(s): E11.9 - Type 2 diabetes mellitus without complications Status: Chronic Assessment and Plan: A1c 11.6. Blood sugars have run high so will restarted his usual dose of Lantus and added novalog with meals to try to control better to clear infection FBS 149 day of discharge and will start his usual regime on d/c (5) Peripheral vascular disease: Code(s): I73.9 - Peripheral vascular disease, unspecified Status: Acute Assessment and Plan: Should probably be on anti-platelet and statin but will leave that to primary care (6) TAWANDA (obstructive sleep apnea): Code(s): G47.33 - Obstructive sleep apnea (adult) (pediatric) Status: Acute Assessment and Plan: Nocturnal CPAP DS: Summary Hospital Course Hospital Course: 64-year-old hypertensive white male with type 2 diabetes on insulin and peripheral vascular disease admitted with history of vomiting blood.. EGD revealed esophagitis but no active bleeding and hemoglobin remains stable found have cellulitis of left below-knee amputation stump with MR showing no osteomyelitis. Found to have abscess cavity which was drained by surgery impact and cultures grew methicillin sensitive Staph aureus. Treated with parental antibiotics while here and 7 days of Levaquin 750 p.o. on discharge. Will follow-up in wound clinic within the Next week. Time Spent with Patient Time attestation: Total time spent providing and/or coordinating discharge services: Exam Narrative: Exam Narrative: condition on discharge: blood pressure 144 over 80 pulse is 70 saturating 94% on room air afebrile lungs clear CV regular rate rhythm abdomen soft nontender extremities without edema, left stump has the open wound that is packed and healing well. Surrounding cellulitis resolving and erythema and swelling not to use his prosthesis on discharge DS: Data Data Completed and Pending Completed studies during hospitalization: Pending at discharge 11/14/19 10:36 Surgical [PTH] Routine Labs on day of discharge: Preliminary micro results at discharge 11/16/19 15:13 Anaerobic Culture - Preliminary Leg Left Discharge Plan Discharge Attending physician on discharge: Eleuterio Dick Consulting providers: Zeeshan Luu ; Valeriano Vela Discharging Clinician: Eleuterio Dick Patient Disposition: [place] Halfway/Asst Living Activity: as tolerated Diet: diabetic and low sodium Wound Care Instructions: remove dressing to shower, change dressing daily and other - see discharge instructions Discharge Instructions: Wound care: Daily dressing change. Remove all dressings. Apply generous amount of several silver g
== END 2019-11-19 17:20 | DRG 464 ==
LOC: ANHED 23:29 → ANH3MEDSUR 11-14 05:13
PROVIDERS: Internal Medicine; Internal Medicine Gastroenterology; Admitting Provider Internal Medicine; Emergency Provider Emergency Medicine; Visit Provider Internal Medicine
PROC: 0DJ08ZZ Inspection of Upper Intestinal Tract, Via Natural or Artificial Opening Endoscopic (ICD-10-PCS; CPT 43235; principal; 2019-11-14 10:30)
DX: T87.44 Infection of amputation stump, left lower extremity (principal); Z68.41 Body mass index [BMI] 40.0-44.9, adult; L03.116 Cellulitis of left lower limb; L02.416 Cutaneous abscess of left lower limb; K43.9 Ventral hernia without obstruction or gangrene; I10 Essential (primary) hypertension; Z89.512 Acquired absence of left leg below knee; E11.51 Type 2 diabetes mellitus with diabetic peripheral angiopathy without gangrene; I25.10 Atherosclerotic heart disease of native coronary artery without angina pectoris; G47.33 Obstructive sleep apnea (adult) (pediatric); K20.8 Other esophagitis; K25.9 Gastric ulcer, unspecified as acute or chronic, without hemorrhage or perforation; E66.01 Morbid (severe) obesity due to excess calories; B36.8 Other specified superficial mycoses
CPT/HCPCS: 36415; 73564; 73723; 74018; 80048; 80053; 80202; 83036; 85025; 85027; 87040; 87070; 87075; 87081; 87147; 87186; 87205; 88305; 96361; 96365; 96366; 96375; 99285; A9270; A9577; C9113; J0690; J0692; J0696; J1650; J1815; J2704; J3370; J7060; J7120

== ENCOUNTER 2019-11-30 15:16 | Emergency (ER) | payer MEDICARE, MEDICAID, SELFPAY ==
--- NOTE | ~2019-11-30 | US_ITS ---
EXAMINATION: US venous doppler [facility] DATE: 11/30/2019 16:54 INDICATION: Lower limb swelling TECHNIQUE: Grayscale ultrasound images without and with compression and Doppler ultrasound images of the left lower extremity veins were obtained. COMPARISON: None. FINDINGS: The visualized portions of left common femoral vein, profunda (deep) femoral vein, femoral vein, popl iteal vein gastrocnemius vein and greater saphenous vein outflow are patent. The posterior tibial and peroneal veins are visualized due to reported left below the knee amputation. IMPRESSION: 1. No deep venous thrombosis in the left lower limb. Reviewed, dictated and finalized at location A. TIC FINISHER
--- NOTE | ~2019-11-30 | CT_ITS ---
EXAMINATION: CTA chest PE protocol DATE: 11/30/2019 17:17 INDICATION: Hemoptysis and tachycardia TECHNIQUE: Computed tomography angiography (CTA) of the chest was performed with 100 mL Omnipaque-350 intravenous contrast timed to evaluate the pulmonary arteries. Coronal maximum intensity projection 3D-reconstructions were created by the technologist. The dose-length product (DLP) was 1100.33 mGy-cm . Automated exposure control and iterative reconstruction technique were employed. COMPARISON: None. FINDINGS: The pulmonary arteries are well-opacified. No pulmonary embolism is identified. There is m ild dependent atelectasis. The lungs are free of focal airspace opacities. No pleural effusion or pne umothorax is identified. Calcified pulmonary nodules and calcified left hilar lymph nodes are consist ent with old granulomatous disease. No pathologically enlarged thoracic lymph nodes are identified. T he heart size is normal. Bilateral gynecomastia is noted. There are bridging osteophytes at multiple levels in the spine, consistent with diffuse idiopathic skeletal hyperostosis (DISH). IMPRESSION: 1. No pulmonary embolism or acute cardiopulmonary abnormality. Reviewed, dictated and finalized at location A. HIATRIC ASSISTANT
[2019-11-30 15:19] VITALS: BP 149/74; PULSE 106; RESP 16; TEMP 36.9; O2SAT 100
--- NOTE | 2019-11-30 15:39 | ED.GENADULT ---
HPI - General Adult General Chief complaint: Skin/Abscess/Foreign Body Stated complaint: wound Time Seen by Provider: 11/30/19 15:36 Source: patient Mode of arrival: EMS Limitations: no limitations History of Present Illness HPI narrative: Patient is here for evaluation of swelling in his left thigh and coughing up blood clots. He is also complaining of constipation x4 days. Patient states that he has had swelling for the past few days of his left thigh where he has had an amputation. He was seen here the beginning of the month and the wound at the stump was opened and cleaned and he was treated with cephalosporin. He now has venous stasis in the right leg and a shallow wound forming on his right calf that is [facility]. He does not have pain or fever. Onset (ago): day(s) Associated symptoms: denies other symptoms Treatments prior to arrival: none Related Data Home Medications Medication Instructions Recorded Confirmed InPen (for Humalog) 11/14/19 11/14/19 Lantus Solostar U-100 Insulin 80 unit SUBCUT HS 11/14/19 11/14/19 Senna-S 1 tab-cap PO DAILY 11/14/19 11/14/19 Therapeutic-M Vitamin/Minerals 1 tablet PO DAILY 11/14/19 11/14/19 Victoza 2-Tushar 1.8 mg SUBCUT DAILY 11/14/19 11/14/19 acetaminophen [Acetaminophen Extra 500 mg PO Q6H PRN 11/14/19 11/14/19 Strength] ascorbic acid (vitamin C) 500 mg PO BID 11/14/19 11/14/19 ergocalciferol (vitamin D2) 50,000 unit PO WEEKLY 11/14/19 11/14/19 [Vitamin D2] escitalopram oxalate 5 mg PO DAILY 11/14/19 11/14/19 escitalopram oxalate 10 mg PO DAILY 11/14/19 11/14/19 gabapentin 600 mg PO TID 11/14/19 11/14/19 insulin lispro [Humalog U-100 35 unit SUBCUT AC 11/14/19 11/14/19 Insulin] lisinopril 5 mg PO DAILY 11/14/19 11/14/19 mirtazapine 30 mg PO HS 11/14/19 11/14/19 silver sulfadiazine [Silvadene] 1 applic TOPICAL BID PRN 11/14/19 11/14/19 tramadol 50 mg PO Q6H PRN 11/14/19 11/14/19 Allergies Allergy/AdvReac Type Severity Reaction Status Date / Time Penicillins Allergy Unknown Fever Verified 11/30/19 15:27 Review of Systems Review of Systems: All systems reviewed & are unremarkable except as noted in HPI and below PMFSH Surgical History Surgical History H/O abdominal surgery Hx of BKA Lt. Family History Family History Father Diabetes mellitus Family history of alcoholism Mother Diabetes mellitus Sibling Family history of emphysema Other Family history of cardiovascular disease Social History Social History Smoking status: Never smoker Alcohol intake: never Substance use: never Gender identity (if verbalized by the patient): Male Spiritual care concerns: No Agree to blood products: Yes Exam Const: General: no acute distress and alert Orientation/consciousness: patient oriented x3 HENMT: Head: normal to inspection Eyes: Pupils: Equal, round and reactive pupils present Resp: Effort & Inspection: normal respiratory effort Auscultation: clear to auscultation bilaterally Cardio: Rate: regular rate and tachycardic Rhythm: regular rhythm GI: GI Palp: Yes Soft to palpation and Yes Tenderness to palpation present (GI) (LLQ) Auscultation: normal bowel sounds Skin: General skin exam: dry skin (venous stasis on right lower leg. ) and erythema (left stump) Lesions: lesion noted (right calf, shallow and pink. to drainage. Left wound being followed .) Neuro: General: patient oriented x3 and moves all extremities Extrem: General: amputation noted Above the knee: left Psych: Mental Status: mental status grossly normal Course Course Emergency Course: Patient is currently on Levaquin will continue. Vital Signs Vital signs: Vital Signs Temperature 36.9 C 11/30/19 15:19 Pulse Rate 106 H 11/30/19 15:19 Respiratory Rate 16 0
[2019-11-30 15:59] LABS: Basophils Percent Auto 0.5 % (0.2-1.2); Eosinophils Absolute Auto 0.2 K/mm3 (0-0.3); Hematocrit 35.5 % (42.0-52.0); Hemoglobin 11.6 g/dL (14.0-18.0); Immature Granulocyte Absolute 0.05 K/mm3 (0.00-0.031); Immature Granulocyte Percent A 0.6 % (0-0.5); Lymphocytes Absolute Auto 2.48 K/mm3 (0.9-3.2); Lymphocytes Percent Auto 31.1 % (18.3-44.2); Mean Corpuscular HGB Conc 32.7 g/dl (32-36); Mean Corpuscular Hemoglobin 30.6 pg (26-34); Mean Corpuscular Volume 93.7 fl (80-100); Mean Platelet Volume 8.3 fl (7.4-10.4); Monocytes Percent Auto 12.7 % (2.6-8.5); Neutrophils Absolute Auto 4.2 K/mm3 (1.3-6.7); Neutrophils Percent Auto 52.1 % (45.5-73.1); Platelet Count Result 200 k/mm3 (150-375); Red Blood Count 3.79 M/mm3 (4.6-6.20); Red Cell Distribution Width 13.9 % (11.5-14.5)
[2019-11-30 16:08] LABS: Alanine Aminotransferase 15 U/L (4-50); Albumin Level 3.7 g/dL (3.5-5.1); Alkaline Phosphatase 81 U/L (38-126); Aspartate Amino Transferase 24 U/L (17-59); Bilirubin,Total 0.4 mg/dL (0.2-1.3); Blood Urea Nitrogen 16 mg/dL (9-20); Calcium 9.5 mg/dL (8.4-10.2); Carbon Dioxide 29 mmol/L (22-30); Chloride 97 mmol/L (98-107); Estimated CRCL calculation 123 ml/min; Estimated Glomerular Filt Rate > 60; Glucose 175 mg/dL (75-110); Potassium 4.4 mmol/L (3.4-5.0); Sodium 137 mmol/L (137-145)
--- NOTE | 2019-11-30 16:24 | ECG_ITS ---
Measurements Intervals [place] Rate: 99 P: 70 WA: 161 QRS: 37 QRSD: 111 T: 61 QT: 343 QTc: 442 Interpretive Statements SINUS RHYTHM INTRAVENTRICULAR CONDUCTION DELAY BORDERLINE ECG Electronically Signed On 11-30-2019 17:16:44 [employer]ER by Osmin Black D.O.
[2019-11-30 16:57] VITALS: BP 141/69; PULSE 104; RESP 16; O2SAT 97
[2019-11-30 17:37] VITALS: BP 155/91; PULSE 101; RESP 18; O2SAT 98
[2019-11-30 18:19] VITALS: BP 161/92; PULSE 108; RESP 20; O2SAT 97
[2019-11-30] MEDS: TRAMADOL HCL 50 MG TABLET PO (18:27)
[2019-11-30 18:48] VITALS: TEMP 36.9
== END 2019-11-30 19:30 ==
PROVIDERS: Physician Assistant; Emergency Provider Emergency Medicine
DX: I73.9 Peripheral vascular disease, unspecified (principal); I87.2 Venous insufficiency (chronic) (peripheral); K59.00 Constipation, unspecified; I87.8 Other specified disorders of veins; Z79.4 Long term (current) use of insulin
CPT/HCPCS: 36415; 71275; 80053; 85025; 93005; 93971; 99284; A9270; Q9967

== ENCOUNTER 2019-12-08 17:24 | Inpatient (IN) | payer MEDICARE, MEDICAID, SELFPAY ==
[2019-12-08] VITALS (8 sets, daily range): BP systolic 144–177; BP diastolic 81–93; PULSE 114–121; RESP 18–30; TEMP 37.1–37.9; O2SAT 86–98
--- NOTE | ~2019-12-08 | XR_ITS ---
XR chest 2V 12/08/2019 18:45 Indication: Cough and chest pain. Pneumonia. Procedure: AP and lateral views of the chest Comparison: No prior studies for comparison. Findings: Cardiomegaly with infiltrates of the mid and lower lungs. No pleural effusion. No pneumotho rax. No acute osseous abnormality. Impression: 1: Bilateral infiltrates of the mid and lower lungs which may reflect edema or pneumonia. 2: Cardiomegaly. Reviewed, dictated and finalized at location A. TRICAL TESTER Impression: 1: Bilateral infiltrates of the mid and lower lungs which may reflect edema or pneumonia. 2: Cardiomegaly.
--- NOTE | ~2019-12-08 | CT_ITS ---
EXAMINATION: CTA chest PE protocol DATE: 12/09/2019 09:02 APPRENTICE COSMETOLOGIST INDICATION: Hypoxia. Tachycardia. Pneumonia. Hemoptysis. Fevers. Productive cough. TECHNIQUE: Computed tomographic angiography (CTA) of the chest was performed with 100 mL Omnipaque-35 0 intravenous contrast. The dose-length product was 1119.89 mGy-cm. Maximum intensity projection 3D-r econstructions of the aorta and other arteries were constructed by the technologist on a separate wor kstation. COMPARISON: CT dated 11/30/2019 FINDINGS: Study technically adequate without evidence for pulmonary embolism. There is mediastinal ly mphadenopathy, likely reactive. No evidence for aortic aneurysm or dissection. Interval development of right lower lobe airspace consolidation posterior medially, consistent with p atient history of pneumonia. There are areas of tree-in-bud nodular configuration in the right upper lobe, right middle lobe and left lower lobe. Calcified granuloma left lower lobe. No endobronchial le sions. There is evidence for bronchial wall thickening in the right upper lobe. There is atherosclero sis of the coronary arteries. There is mediastinal lipomatosis. There are degenerative changes of the spine and shoulders. IMPRESSION: 1. No evidence for pulmonary embolism. 2: Patchy bilateral pneumonia with more focal consolidation right lower lobe. Reviewed, dictated and finalized at location A. ENTICE COSMETOLOGIST
--- NOTE | ~2019-12-08 | US_ITS ---
EXAMINATION:US venous doppler LE BI INDICATION:Leg edema TECHNIQUE: Multiple grayscale, color flow and Doppler images of the lower extremity deep venous syste ms were obtained and reviewed. COMPARISON:No prior studies for comparison. FINDINGS: The common femoral, superficial femoral and popliteal veins demonstrate normal respiratory variation, augmentation and compressibility. Color flow is also seen within the right posterior tibi al, peroneal, greater saphenous and profunda veins. There is a left dmxvn-rpt-[id number] amputation. IMPRESSION: 1: No lower extremity deep venous thrombosis. Reviewed, dictated and finalized at location A. T LAUNDRY ATTENDANT
--- NOTE | 2019-12-08 18:01 | ED.SOB ---
HPI - SOB/Dyspnea General Chief Complaint: Shortness of Breath/Dyspnea Stated Complaint: pneumonia? Time Seen by Provider: 12/08/19 17:38 Source: patient and old records reviewed Mode of arrival: EMS Limitations: no limitations History of Present Illness HPI Narrative: A 64 y/o male presents to the ED, via EMS, from [facility], with c/o SOB and a cough with bloody sputum x 3 days. Pt states he had a CXR today at his nursing facility. Per records from the facility, pt's CXR notes left lower infiltrate. Pt reports having a 99F fever, but denies any N/V/D. Per old records, pt was admitted to our facility earlier this month for an upper GI bleed. Pt has a PMHx of DM and a PSHx of LLE amputation. MD elicited complaint: shortness of breath and cough Pertinent past history: diabetes Onset (ago): day(s) (3) Timing: progressively worsening Known history of: diabetes Associated symptoms: fever (99F), cough and sputum production (bloody) Related Data Home Medications Medication Instructions Recorded Confirmed InPen (for Humalog) 11/14/19 11/14/19 Lantus Solostar U-100 Insulin 80 unit SUBCUT HS 11/14/19 11/14/19 Senna-S 1 tab-cap PO DAILY 11/14/19 11/14/19 Therapeutic-M Vitamin/Minerals 1 tablet PO DAILY 11/14/19 11/14/19 Victoza 2-Tushar 1.8 mg SUBCUT DAILY 11/14/19 11/14/19 acetaminophen [Acetaminophen Extra 500 mg PO Q6H PRN 11/14/19 11/14/19 Strength] ascorbic acid (vitamin C) 500 mg PO BID 11/14/19 11/14/19 ergocalciferol (vitamin D2) 50,000 unit PO WEEKLY 11/14/19 11/14/19 [Vitamin D2] escitalopram oxalate 5 mg PO DAILY 11/14/19 11/14/19 escitalopram oxalate 10 mg PO DAILY 11/14/19 11/14/19 gabapentin 600 mg PO TID 11/14/19 11/14/19 insulin lispro [Humalog U-100 35 unit SUBCUT AC 11/14/19 11/14/19 Insulin] lisinopril 5 mg PO DAILY 11/14/19 11/14/19 mirtazapine 30 mg PO HS 11/14/19 11/14/19 silver sulfadiazine [Silvadene] 1 applic TOPICAL BID PRN 11/14/19 11/14/19 tramadol 50 mg PO Q6H PRN 11/14/19 11/14/19 Allergies Allergy/AdvReac Type Severity Reaction Status Date / Time Penicillins Allergy Unknown Fever Verified 11/30/19 15:27 Review of Systems Review of Systems: All systems reviewed & are unremarkable except as noted in HPI and below Constitutional: Constitutional: Reports fever(s) (99F) Respiratory: Respiratory: Reports change in phlegm color (bloody), Reports cough and Reports dyspnea Gastrointestinal: Gastrointestinal: Denies diarrhea, Denies nausea and Denies vomiting PMFSH Past Medical History Medical History CAD (coronary artery disease) Diabetes Hypertension Obesity TAWANDA (obstructive sleep apnea) Peripheral vascular disease Surgical History Surgical History H/O abdominal surgery Hx of BKA Lt. Social History Social History Smoking status: Never smoker Alcohol intake: never Substance use: never Gender identity (if verbalized by the patient): Male Spiritual care concerns: No Agree to blood products: Yes Exam Const: General: cooperative, no acute distress and alert Nutritional Appearance: well nourished Orientation/consciousness: patient oriented x3 Limitations: no limitations HENMT: Mouth: Yes lip normal and Yes moist mucous membranes Resp: Effort & Inspection: normal respiratory effort Auscultation: rhonchi (lt lung base) and wheezes (bilateral) scattered wheezes Cardio: Rate: tachycardic Rhythm: regular rhythm Heart sounds: no murmurs GI: GI Palp: Yes Soft to palpation and No Tenderness to palpation present (GI) Auscultation: normal bowel sounds Skin: General skin exam: normal color Neuro: General: patient oriented x3 Cognition (Neuro): normal cognition Speech: normal speech Extrem: General: normal to inspection, full ROM and no clubbing, cyanosis or edema Psych: Mental
--- NOTE | 2019-12-08 18:06 | ECG_ITS ---
Measurements Intervals [place] Rate: 111 P: 74 CT: 143 QRS: 46 QRSD: 113 T: 75 QT: 331 QTc: 451 Interpretive Statements SINUS TACHYCARDIA INTRAVENTRICULAR CONDUCTION DELAY ABNORMAL ECG Electronically Signed On 12-09-2019 7:09:48 [employer]OURER by Osmin Black D.O.
[2019-12-08] MEDS: ALBUTEROL SULFATE NEB 2.5 MG/0.5 ML INH 5 MG INHALATION (18:20)
[2019-12-08] MEDS: IPRATROPIUM BR 0.02% INH SOLN 0.5 MG/2.5 ML VIAL INHALATION (18:21)
[2019-12-08 18:25] LABS: Basophils Percent Auto 0.2 % (0.2-1.2); Eosinophils Percent Auto 0.1 % (0-4.4); Hematocrit 38.5 % (42.0-52.0); Hemoglobin 12.2 g/dL (14.0-18.0); Immature Granulocyte Absolute 0.05 K/mm3 (0.00-0.031); Immature Granulocyte Percent A 0.5 % (0-0.5); Lymphocytes Absolute Auto 1.64 K/mm3 (0.9-3.2); Mean Corpuscular HGB Conc 31.7 g/dl (32-36); Mean Corpuscular Hemoglobin 29.8 pg (26-34); Mean Corpuscular Volume 94.1 fl (80-100); Monocytes Absolute Auto 1.2 K/mm3 (0.1-0.6); Monocytes Percent Auto 11.3 % (2.6-8.5); Neutrophils Percent Auto 72.9 % (45.5-73.1); Platelet Count Result 196 k/mm3 (150-375); Red Blood Count 4.09 M/mm3 (4.6-6.20); White Blood Count 10.9 K/mm3 (4.5-10.0)
[2019-12-08] MEDS: LACTATED RINGERS 1,000 ML 999 ML IV CONT (18:26)
[2019-12-08 18:35] LABS: INR 1.1
[2019-12-08 18:38] LABS: Lactic Acid Reflex 1.1 mmol/L (0.7-2.1)
[2019-12-08 18:46] LABS: Alanine Aminotransferase 26 U/L (4-50); Albumin Level 4.1 g/dL (3.5-5.1); Alkaline Phosphatase 83 U/L (38-126); Aspartate Amino Transferase 62 U/L (17-59); Bilirubin,Total 0.6 mg/dL (0.2-1.3); Blood Urea Nitrogen 19 mg/dL (9-20); Calcium 9.1 mg/dL (8.4-10.2); Carbon Dioxide 29 mmol/L (22-30); Chloride 92 mmol/L (98-107); Estimated Glomerular Filt Rate > 60; Glucose 90 mg/dL (75-110); Potassium 4.3 mmol/L (3.4-5.0); Sodium 133 mmol/L (137-145)
[2019-12-08 19:43] LABS: CRP 23.5 mg/dL (<1.0)
[2019-12-08 19:52] LABS: Add Urine Microscopic? YES; Appearance Urine Clear (Clear); Bacteria Urine Trace /hpf; Bilirubin Urine Negative (Negative); Blood Urine 2+ (Negative); Color Urine Yellow (Yellow); Glucose Urine UA Negative (Negative); Ketones Urine Trace mg/dL (Negative); Leukocyte Esterase Ur Negative LEU/UL (Negative); Mucus Urine Rare /lpf; Nitrate Urine Negative (Negative); Protein Urine 2+ mg/dL (Negative); Specific Grav Ur 1.021 (1.001-1.035); Squamous Epithelial Cell Urine Few /hpf (Few); Urobilinogen Urine Negative mg/dL (<2.0)
--- NOTE | 2019-12-08 20:30 | PM.IMHP ---
H&P: HPI History of Present Illness Chief complaint: Hemoptysis, recent pneumonia diagnosis. Narrative: Wing Veloz is a 64 year old maleWith multiple medical problems including coronary artery disease, hypertension, sleep apnea, morbid obesity, insulin-dependent diabetes and multiple other medical problems who presented to the emergency department earlier this evening via EMS from [facility] for evaluation of hemoptysis after recent pneumonia diagnosis. He has had a cough for the last 3 days, productive of clear sputum admixed with bright red blood as well as rhinorrhea, wheezing, andlow-grade fevers. He has also had occasional, fleeting sharp pains throughout the anterior chest. They are not necessarily aggravated with inspiration or cough. He also mentions feelings of racing heart. He has chronic edema in his lower limbs (now status post left below the knee amputation), which are unchanged. He has not had sweats, chills, nausea, or vomiting. It is noted that he was recently admitted to the hospital in November 05, 2019 with melena, found to have evidence of gastritis and esophagitis on EGD. Review of Systems Review of Systems: Narrative: 12 systems are reviewed with pertinent positives and negatives as per HPI. He reports low-grade fever. No headache. Some mild rhinorrhea. No otalgia or odynophagia. He denies dysphasia and concerns for aspiration. He is noncompliant with PAP therapy at nighttime, and tells me that he just does not sleep well. It sounds like he has chronic orthopnea as well as lower extremity edema.His diabetes has historically been poorly controlled with a recent hemoglobin A1c of 11.6%.Except as documented, all other systems were reviewed and are negative. [facility] Past Medical History Medical History (Updated 12/08/19 @ 21:07 by Melonie Levi PA-C) CAD (coronary artery disease) Cervical vertebral fusion Chronic anemia Hypertension Insulin dependent type 2 diabetes mellitus Hemoglobin A1c was 11.6% November 15, 2019. Morbid obesity with BMI of 40.0-44.9, adult TAWANDA (obstructive sleep apnea) Noncompliant with PAP therapy. Peripheral vascular disease Surgical History Surgical History (Updated 12/08/19 @ 20:50 by Melonie Levi PA-C) Status post below-knee amputation of left lower extremity Status post herniorrhaphy Ventral hernia repair x3. Family History Family History Father Diabetes mellitus Family history of alcoholism Mother Diabetes mellitus Sibling Family history of emphysema Other Family history of cardiovascular disease Social History Social History (Updated 12/08/19 @ 20:51 by Melonie Levi PA-C) Social History: The patient has been at [facility] for approximately 2 years time. Before that he was living with his mother in [place].He is on disability. He had 2 daughters, one at the age of 34 from an SD. He has a lifelong non-smoker. He was previously a heavy drinker, but has abstained since moving to the [facility]. He denies illicit drug use. Spiritual care concerns: No Agree to blood products: Yes Meds Home Medications and Allergies Home Medications Medication Instructions Recorded Confirmed Type InPen (for Humalog) 11/14/19 11/14/19 History Lantus Solostar U-100 Insulin 80 unit SUBCUT HS 11/14/19 11/14/19 History Senna-S 1 tab-cap PO DAILY 11/14/19 11/14/19 History Therapeutic-M Vitamin/Minerals 1 tablet PO DAILY 11/14/19 11/14/19 History Victoza 2-Tushar 1.8 mg SUBCUT DAILY 11/14/19 11/14/19 History acetaminophen [Acetaminophen Extra 500 mg PO Q6H PRN 11/14/19 11/14/19 History Strength] ascorbic acid (vitamin C) 500 mg PO BID 11/14/19 11/14/19 History ergocalciferol (vitamin D2) 50,000 unit PO WEEKLY 11/14/19 11/14/19 History [Vitamin D2] escitalopram oxalate 5 mg PO DAILY 11/14/19 11/14/19 History escit
--- NOTE | 2019-12-08 21:12 | ADMGEN ---
This patient, Wing Veloz, was admitted to 2 Medical Room 242-01@ 211. Patient/family oriented to hospital policies and general routines including ID bracelet, bed and alarms, visiting hours, pain management, procedures, bathroom and other care routines, personal items, smoking policy, room service/diet, and visiting hours. Valuables list has been completed. Information on how to activate the Rapid Response Team has been discussed. Patient/Family are encouraged to report perceived risks to care and to ask questions if they do not understand what they are told or what they should do.
[2019-12-08] MEDS: LACTATED RINGERS 1,000 ML 100 ML IV CONT (22:13)
[2019-12-08 22:22] LABS: Glucose Point of Care 181 (65-105)
[2019-12-09] VITALS (22 sets, daily range): BP systolic 129–166; BP diastolic 69–121; PULSE 76–121; RESP 16–23; TEMP 36.2–36.8; O2SAT 93–97
[2019-12-09] MEDS: NITROGLYCERIN SL 0.4 MG TABLET SUBLINGUAL ×2 (01:17→01:23)
[2019-12-09] MEDS: ALBUTEROL SULFATE NEB 2.5 MG/0.5 ML INH 5 MG INHALATION ×4 (01:22→19:51)
[2019-12-09] MEDS: IPRATROPIUM BR 0.02% INH SOLN 0.5 MG/2.5 ML VIAL INHALATION ×4 (01:22→19:51)
[2019-12-09 02:00] LABS: Troponin I 0.014 ng/mL (0.000-0.034)
[2019-12-09] MEDS: MORPHINE SULFATE 2 MG/ML INJ IV PUSH (02:01)
[2019-12-09 02:15] LABS: Glucose Point of Care 150 (65-105)
[2019-12-09 05:05] LABS: Basophils Percent Auto 0.2 % (0.2-1.2); Hematocrit 33.8 % (42.0-52.0); Immature Granulocyte Absolute 0.06 K/mm3 (0.00-0.031); Immature Granulocyte Percent A 0.6 % (0-0.5); Lymphocytes Absolute Auto 1.39 K/mm3 (0.9-3.2); Mean Corpuscular HGB Conc 32.5 g/dl (32-36); Mean Corpuscular Hemoglobin 30.3 pg (26-34); Mean Corpuscular Volume 93.1 fl (80-100); Mean Platelet Volume 8.4 fl (7.4-10.4); Monocytes Absolute Auto 1.2 K/mm3 (0.1-0.6); Monocytes Percent Auto 10.8 % (2.6-8.5); Neutrophils Absolute Auto 8.1 K/mm3 (1.3-6.7); Neutrophils Percent Auto 75.4 % (45.5-73.1); Platelet Count Result 167 k/mm3 (150-375); Red Blood Count 3.63 M/mm3 (4.6-6.20); Red Cell Distribution Width 13.9 % (11.5-14.5); White Blood Count 10.7 K/mm3 (4.5-10.0)
[2019-12-09] MEDS: SILVER SULFADIAZINE 1% CR 400 GM JAR (*BKC) 1 APPLIC TOPICAL (05:07)
[2019-12-09 05:22] LABS: Blood Urea Nitrogen 14 mg/dL (9-20); Calcium 8.6 mg/dL (8.4-10.2); Carbon Dioxide 23 mmol/L (22-30); Chloride 95 mmol/L (98-107); Estimated Glomerular Filt Rate > 60; Glucose 203 mg/dL (75-110); Potassium 4.4 mmol/L (3.4-5.0); Sodium 133 mmol/L (137-145)
[2019-12-09 07:30] LABS: Glucose Point of Care 191 (65-105)
[2019-12-09 08:33] LABS: Troponin I 0.018 ng/mL (0.000-0.034)
[2019-12-09] MEDS: INSULIN ASPART (*BKC) 100 UNITS/ML 35 UNITS SUB-Q ×2 (09:18→12:17)
[2019-12-09] MEDS: ASCORBIC ACID 500 MG TABLET PO ×2 (09:20→18:11)
[2019-12-09] MEDS: GABAPENTIN 300 MG CAPSULE 600 MG PO ×3 (09:20→18:11)
[2019-12-09] MEDS: ASPIRIN 81 MG ENTERIC TABLET PO (09:20)
[2019-12-09] MEDS: lisinopriL 5 MG TABLET PO (09:21)
[2019-12-09] MEDS: TOLNAFTATE 1% POWDER 45 GM BTL 1 APPLIC TOPICAL ×2 (09:21→20:53)
[2019-12-09] MEDS: THERAPEUTIC MULTIVITAMINS/MINERALS TAB (*BKC) 1 TABLET PO (09:21)
[2019-12-09 12:14] LABS: Glucose Point of Care 141 (65-105)
--- NOTE | 2019-12-09 15:28 | PM.IMPN ---
Progress Note: A&P Assessment and Plan (1) Acute respiratory failure with hypoxia: Code(s): J96.01 - Acute respiratory failure with hypoxia Status: Acute Assessment and Plan: On admission. Improved with supplemental oxygen. He was tachypneic with a rate of 30. No blood gas was obtained but patient hypoxic. Patient symptomatically improved. Wean oxygen as tolerated. (2) Sepsis: Qualifiers: Sepsis acute organ dysfunction status: unspecified Sepsis type: sepsis due to unspecified organism Qualified Code(s): A41.9 - Sepsis, unspecified organism Code(s): A41.9 - Sepsis, unspecified organism Status: Acute Assessment and Plan: Present on admission supported by fever, tachycardia, tachypnea, and leukocytosis in the setting of pneumonia. Lactic acid levels within normal limits. Blood cultures have been obtained and are pending. (3) Pneumonia: Qualifiers: Laterality: bilateral Lung location: lower lobe of lung Pneumonia type: due to unspecified organism Qualified Code(s): J18.9 - Pneumonia, unspecified organism Code(s): J18.9 - Pneumonia, unspecified organism Status: Acute Assessment and Plan: CTA showing patchy bilateral pneumonia with more focal consolidation right lower lobe. He has been started on Rocephin and azithromycin. Will continue the same. Continue nebulizer treatments. Blood cultures are pending. Consider MRSA coverage if he does not clinically improve. Sputum culture has been ordered. 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 Glucose reviewed on 12/09/2019. Glucose well controlled. Continue Lantus and Victoza. Continue Accu-Cheks covering with sliding scale. Hypoglycemia protocol available as needed. (5) Hypertension: Qualifiers: Hypertension type: essential hypertension Qualified Code(s): I10 - Essential (primary) hypertension Code(s): I10 - Essential (primary) hypertension Status: Acute Assessment and Plan: Blood pressure reviewed on 12/09/2019. Blood pressures been elevated since admission improving. Continue lisinopril. Will continue to monitor for now. Subjective Date/time seen: 12/09/19 15:28 Interval history: 64yo male with CAD, COPD and DM here for hemoptysis and cough. Assuming care. Chart reviewed. Patient still having hemoptysis. He did have epistaxis last night. He is eating well. He had episode diaphoresis with shortness of breath and chest pain last night. He thinks it may be related to anxiety. Symptoms improved with nitroglycerin and morphine. He is asking for morphine now. He still is having the chest pain and it seems to be constant. Exam Narrative: Exam Narrative: Gen - NARD sitting up in a chair feeding himself Chest -bibasilar crackles. Normal respiratory rate. CV - RRR S1/S2; telemetry showing occasional sinus tachycardia. Abd -soft. Obese. Positive bowel sounds. Large midline scar noted. Firmness in the upper abdomen possibly mesh Ext -trace pedal edema on the right. Left vulpe-epc-wijz amputation. Psych - Nml mood and affect Skin -chronic venous stasis skin changes noted in the right lower extremity. On the stump he has a thumbnail sized shallow ulcer on the anterior norris left lower extremity. Objective Data Vital Signs Vital Signs: Vital Signs - 24 hr 12/08/19 17:24 12/08/19 17:29 12/08/19 18:21 Temperature 100.2 F H Pulse Rate 121 H 114 H Respiratory Rate 30 H 26 H Blood Pressure 177/86 H Pulse Oximetry 86 L 96 12/08/19 18:27 12/08/19 19:31 12/08/19 19:32 Temperature Pulse Rate 116 H 115 H 115 H Respiratory Rate 18 19 Blood Pressure 170/82 H Pulse Oximetry 93 12/08/19 20:44 12/08/19 21:45 12/09/19 00:22 Temperat
--- NOTE | 2019-12-09 16:22 | PC.NURSE ---
On entering room to check on patient, patient in recliner, snoring. Patient pale and very diaphoretic. Attempted to arouse patient and patient will open eyes but cannot fully wake up. Blood sugar checked - 44. Patient not alert enough to swallow glucose gel. 12.5 gm D50 administered IVP per hypoglycemia protocol. Recheck 15 minutes later 101 and patient arousing a little more. Able to wake up and take a drink and answer questions. Recheck in another 15 minutes and blood sugar 93 and patient falling back to sleep. Patient aroused and awoke to have some juice and crackers. Patient more and more awake and alert. Skin now warm and dry to touch. Able to answer questions appropriately. Assisted patient with ordering dinner. Called Dr. Haywood and notified him of incident. Orders received and Dr. Haywood states he will adjust patient's insulin orders.
[2019-12-09] MEDS: DEXTROSE 50% 25 GM/50 ML SYRINGE IV PUSH (16:23)
[2019-12-09 16:30] LABS: Glucose Point of Care 44 (65-105)
[2019-12-09 16:47] LABS: Glucose Point of Care 101 (65-105)
[2019-12-09 17:02] LABS: Glucose Point of Care 93 (65-105)
[2019-12-09] MEDS: ENOXAPARIN 40 MG/0.4 ML SYRINGE SUB-Q (18:10)
[2019-12-09 18:35] LABS: Glucose Point of Care 180 (65-105)
[2019-12-09] MEDS: INSULIN GLARGINE (*BKC) 100 UNITS/ML 80 UNITS SUB-Q (20:53)
[2019-12-09] MEDS: ATORVASTATIN 10 MG TABLET PO (20:53)
[2019-12-09] MEDS: MELATONIN 3 MG TABLET PO (20:53)
[2019-12-09] MEDS: MIRTAZAPINE 30 MG TABLET PO (20:53)
[2019-12-09 20:54] LABS: Glucose Point of Care 334 (65-105)
[2019-12-10] VITALS (16 sets, daily range): BP systolic 102–145; BP diastolic 54–58; PULSE 78–105; RESP 18–22; TEMP 36.3–37.5; O2SAT 93–100
[2019-12-10] MEDS: ALBUTEROL SULFATE NEB 2.5 MG/0.5 ML INH 5 MG INHALATION ×4 (02:21→22:20)
[2019-12-10] MEDS: IPRATROPIUM BR 0.02% INH SOLN 0.5 MG/2.5 ML VIAL INHALATION ×4 (02:22→22:20)
[2019-12-10 05:52] LABS: Hematocrit 35.2 % (42.0-52.0); Mean Corpuscular HGB Conc 31.3 g/dl (32-36); Mean Corpuscular Hemoglobin 29.9 pg (26-34); Mean Corpuscular Volume 95.7 fl (80-100); Mean Platelet Volume 9.2 fl (7.4-10.4); Platelet Count Result 190 k/mm3 (150-375); Red Blood Count 3.68 M/mm3 (4.6-6.20); Red Cell Distribution Width 14.3 % (11.5-14.5); White Blood Count 7.3 K/mm3 (4.5-10.0)
[2019-12-10 06:04] LABS: Albumin Level 3.2 g/dL (3.5-5.1); Blood Urea Nitrogen 19 mg/dL (9-20); Calcium 8.4 mg/dL (8.4-10.2); Carbon Dioxide 29 mmol/L (22-30); Chloride 98 mmol/L (98-107); Estimated Glomerular Filt Rate > 60; Glucose 244 mg/dL (75-110); Magnesium 2.1 mg/dL (1.6-2.3); Phosphorus 3.7 mg/dL (2.5-4.5); Potassium 4.3 mmol/L (3.4-5.0); Sodium 135 mmol/L (137-145)
[2019-12-10] MEDS: SENNA/DOCUSATE SODIUM TABLET 1 TAB PO (08:31)
[2019-12-10] MEDS: ASCORBIC ACID 500 MG TABLET PO ×2 (08:31→17:59)
[2019-12-10] MEDS: TOLNAFTATE 1% POWDER 45 GM BTL 1 APPLIC TOPICAL ×2 (08:32→20:39)
[2019-12-10] MEDS: ASPIRIN 81 MG ENTERIC TABLET PO (08:32)
[2019-12-10] MEDS: THERAPEUTIC MULTIVITAMINS/MINERALS TAB (*BKC) 1 TABLET PO (08:32)
[2019-12-10] MEDS: GABAPENTIN 300 MG CAPSULE 600 MG PO ×3 (08:32→17:59)
[2019-12-10] MEDS: lisinopriL 5 MG TABLET PO ×2 (08:32→15:15)
[2019-12-10] MEDS: ENOXAPARIN 40 MG/0.4 ML SYRINGE SUB-Q (08:32)
--- NOTE | 2019-12-10 08:37 | PCOTNOTE ---
Attempted to see for OT evaluation. Patient eating breakfast and with nursing. Will continue to attempt.
[2019-12-10] MEDS: TRAMADOL HCL 50 MG TABLET PO (08:46)
[2019-12-10] MEDS: INSULIN ASPART (*BKC) 100 UNITS/ML SUB-Q ×2 (08:47→11:37)
[2019-12-10] MEDS: INSULIN ASPART (*BKC) 100 UNITS/ML 35 UNITS SUB-Q ×3 (08:48→18:05)
[2019-12-10 09:47] LABS: Glucose Point of Care 305 (65-105)
[2019-12-10] MEDS: SILVERGEL (ELTA) 45 ML 1 APPLIC TOPICAL (11:37)
[2019-12-10 13:48] LABS: Glucose Point of Care 252 (65-105)
--- NOTE | 2019-12-10 14:20 | PM.IMPN ---
Progress Note: A&P Assessment and Plan (1) Acute respiratory failure with hypoxia: Code(s): J96.01 - Acute respiratory failure with hypoxia Status: Acute Assessment and Plan: No blood gas was obtained but patient ypoxic on admission that improved with supplemental oxygen. He was tachypneic with a rate of 30. Patient symptomatically improved. Down to 1L. Wean oxygen as tolerated. (2) Sepsis: Qualifiers: Sepsis acute organ dysfunction status: unspecified Sepsis type: sepsis due to unspecified organism Qualified Code(s): A41.9 - Sepsis, unspecified organism Code(s): A41.9 - Sepsis, unspecified organism Status: Acute Assessment and Plan: Present on admission supported by fever, tachycardia, tachypnea, and leukocytosis in the setting of pneumonia. Lactic acid levels within normal limits. Sepsis resolving. (3) Pneumonia: Qualifiers: Laterality: bilateral Lung location: lower lobe of lung Pneumonia type: due to unspecified organism Qualified Code(s): J18.9 - Pneumonia, unspecified organism Code(s): J18.9 - Pneumonia, unspecified organism Status: Acute Assessment and Plan: CTA ws negative for PE but did show patchy bilateral pneumonia with more focal consolidation right lower lobe. MRSA nasal swab negative. Sputum not a good sample. BCx NGTD. WBC normal now. No fevers. Will continue Rocephin and azithromycin. Continue nebulizer treatments. 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 Glucose reviewed on 12/10/2019. Glucose dropped to 44 once yesterday. Glucose in the 300's this morning since resuming insulin. Currently on Lantus 80U qhs and Novolog 35U TID. Victoza on hold due to nonformulary and patient at [facility]. Continue Accu-Cheks covering with sliding scale. Hypoglycemia protocol available as needed. Glucose dropped to 135 this evening. Will back off on the Novolog slightly to avoid lows. (5) Hypertension: Qualifiers: Hypertension type: essential hypertension Qualified Code(s): I10 - Essential (primary) hypertension Code(s): I10 - Essential (primary) hypertension Status: Acute Assessment and Plan: Blood pressure reviewed on 12/10/2019. Blood pressures elevated at times since admission. Will advanelisinopril. Will continue to monitor for now. Subjective Date/time seen: 12/10/19 14:20 Interval history: 64yo male with CAD, COPD and DM here for hemoptysis and cough. SOB better. Slept in a recliner. No C. Still with productive cough with hemoptysis. No change in the hemoptysis in frequency or quanitity. Also states he is coughing up clots. No [place]. No n/v. Eating normally. Exam Narrative: Exam Narrative: Gen - NARD lying in a reclining chair Chest -basilar rhonchi. Scattered expiratory wheezes. Normal respiratory rate. No conversational dyspnea. CV - RRR S1/S2; telemetry showing no significant dysrhythmias Abd -soft. Obese. Nontender. Positive bowel sounds. Ext -indurated edema right lower extremity. Left hwfdw-njj-vwiq amputation. Psych - Nml mood and affect Skin -chronic venous stasis skin changes noted in the bilateral lower extremity. On the stump he has a thumbnail sized shallow ulcer on the anterior norris left lower extremity with good granulation tissue. Objective Data Vital Signs Vital Signs: Vital Signs - 24 hr 12/09/19 14:44 12/09/19 14:50 12/09/19 16:00 Temperature Pulse Rate 92 86 89 Respiratory Rate 22 H 22 H Blood Pressure Pulse Oximetry 12/09/19 19:51 12/09/19 19:55 12/09/19 20:00 Temperature Pulse Rate 92 76 Respiratory Rate 22 H Blood Pressure Pulse Oximetry 97 12/09/19 20:01 12/09/19 21:44 12/10/19 00:00 Temperature 97.8
[2019-12-10] MEDS: FUROSEMIDE INJ 40 MG/4 ML VIAL IV PUSH (15:15)
[2019-12-10 18:25] LABS: Glucose Point of Care 135 (65-105)
[2019-12-10] MEDS: ATORVASTATIN 10 MG TABLET PO (20:38)
[2019-12-10] MEDS: MIRTAZAPINE 30 MG TABLET PO (20:38)
[2019-12-10] MEDS: MELATONIN 3 MG TABLET PO (20:38)
[2019-12-10] MEDS: INSULIN GLARGINE (*BKC) 100 UNITS/ML 80 UNITS SUB-Q (20:39)
[2019-12-10 21:45] LABS: Glucose Point of Care 171 (65-105)
[2019-12-11] VITALS (9 sets, daily range): BP systolic 109–125; BP diastolic 53–62; PULSE 100–112; RESP 13–20; TEMP 36.3–37.4; O2SAT 92–97
[2019-12-11] MEDS: ALBUTEROL SULFATE NEB 2.5 MG/0.5 ML INH 5 MG INHALATION ×3 (04:07→14:49)
[2019-12-11] MEDS: IPRATROPIUM BR 0.02% INH SOLN 0.5 MG/2.5 ML VIAL INHALATION ×3 (04:08→14:49)
[2019-12-11 07:25] LABS: Glucose Point of Care 252 (65-105)
[2019-12-11] MEDS: INSULIN ASPART (*BKC) 100 UNITS/ML 32 UNITS SUB-Q ×3 (07:28→15:34)
[2019-12-11] MEDS: INSULIN ASPART (*BKC) 100 UNITS/ML SUB-Q ×2 (07:29→12:16)
[2019-12-11] MEDS: ASPIRIN 81 MG ENTERIC TABLET PO (08:57)
[2019-12-11] MEDS: ASCORBIC ACID 500 MG TABLET PO ×2 (08:57→16:19)
[2019-12-11] MEDS: ENOXAPARIN 40 MG/0.4 ML SYRINGE SUB-Q (08:58)
[2019-12-11] MEDS: THERAPEUTIC MULTIVITAMINS/MINERALS TAB (*BKC) 1 TABLET PO (08:58)
[2019-12-11] MEDS: lisinopriL 10 MG TABLET PO (08:58)
[2019-12-11] MEDS: GABAPENTIN 300 MG CAPSULE 600 MG PO ×3 (08:58→16:19)
[2019-12-11] MEDS: SILVERGEL (ELTA) 45 ML 1 APPLIC TOPICAL (08:59)
[2019-12-11] MEDS: TOLNAFTATE 1% POWDER 45 GM BTL 1 APPLIC TOPICAL (08:59)
[2019-12-11 12:38] LABS: Glucose Point of Care 216 (65-105)
--- NOTE | 2019-12-11 14:24 | PM.IMPN ---
Progress Note: A&P Assessment and Plan (1) Acute respiratory failure with hypoxia: Code(s): J96.01 - Acute respiratory failure with hypoxia Status: Acute Assessment and Plan: Result of pneumonia. Still requiring 1 L of oxygen. Symptomatically did have improvement with IV Lasix yesterday. Now with negative fluid balance. Otherwise stable. Will discharge back to [facility] today. (2) Sepsis: Qualifiers: Sepsis acute organ dysfunction status: unspecified Sepsis type: sepsis due to unspecified organism Qualified Code(s): A41.9 - Sepsis, unspecified organism Code(s): A41.9 - Sepsis, unspecified organism Status: Acute Assessment and Plan: Criteria met on admission. Result of pneumonia. Blood cultures negative to date. Sputum culture not performed as specimen unacceptable. MRSA nasal culture negative. WBC now normal. (3) Pneumonia: Qualifiers: Laterality: bilateral Lung location: lower lobe of lung Pneumonia type: due to unspecified organism Qualified Code(s): J18.9 - Pneumonia, unspecified organism Code(s): J18.9 - Pneumonia, unspecified organism Status: Acute Assessment and Plan: CTA ws negative for PE but did show patchy bilateral pneumonia with more focal consolidation right lower lobe. MRSA nasal swab negative. Sputum as noted above. Has been on IV ceftriaxone and azithromycin. Will discharge on oral cefdinir. Continue nebulizer treatments. (4) Insulin dependent type 2 diabetes mellitus: Code(s): E11.9 - Type 2 diabetes mellitus without complications; Z79.4 - [facility] (current) use of insulin Status: Acute Assessment and Plan: Recent HgbA1C of 11.6%. Glucose reviewed on 12/11/2019. Glucose presently with some highs but acceptable. Will continue Lantus 80 units at night and NovoLog 32 units t.i.d.. Home Victoza has been on hold but will resume at discharge. Will need to follow at nursing facility. (5) Hypertension: Qualifiers: Hypertension type: essential hypertension Qualified Code(s): I10 - Essential (primary) hypertension Code(s): I10 - Essential (primary) hypertension Status: Acute Assessment and Plan: Blood pressure reviewed on 12/11/2019. Blood pressure readings acceptable. Continue current lisinopril. Will need to follow at nursing facility. (6) DVT prophylaxis: Code(s): Z29.9 - Encounter for prophylactic measures, unspecified Status: Acute Assessment and Plan: Lovenox. Time Spent With Patient Time with patient: 15 - 25 minutes Subjective Date/time seen: 12/11/19 14:24 Interval history: Date of Service: 12/11/2019. Admitted with sepsis, pneumonia, acute respiratory failure. Patient states feeling better today after IV Lasix yesterday. No shortness of breath currently. Cough improved. Still with some chest tightness. No chest pain. No abdominal pain. No nausea or vomiting. Review of Systems Review of Systems: Narrative: Feeling better. Constitutional: Constitutional: Denies chills and Denies fever(s) ENT: Denies epistaxis Cardiovascular: Cardiovascular: Denies chest pain Respiratory: Respiratory: Reports chest congestion, Reports cough (improved) and Denies dyspnea Gastrointestinal: Gastrointestinal: Denies abdominal pain, Denies nausea and Denies vomiting Genitourinary: Genitourinary: Reports no additional male genitourinary complaints Musculoskeletal: Comments: left BKA Integumentary/Breasts: Comments: venous stasis RLE Neurologic: Denies headache(s) Psychiatric: Psychiatric: Denies anxiety Exam Narrative: Exam Narrative: Awake and alert. Const: General: no acute distress HENMT: Mouth: Yes moist mucous membranes Neck: Neck: supple Lymphatic: lymphadenopathy not noted Resp: Auscultation: crackles (At bases), no wheezes and diminished lung sounds Cardio: Rate: regular rate Rhythm:
[2019-12-11 15:16] LABS: Glucose Point of Care 182 (65-105)
--- NOTE | 2019-12-11 16:05 | PC.NURSE ---
On 12/11/19, the student, Guanaco Garcia, provided care and completed [facility] documentation on this patient. I have reviewed the student's documentation and agree with the findings.
[2019-12-11 16:57] LABS: Legionella pneumophila Ag Ur Not Detected (Not Detected); Pneumococcal Antigen Urine Not Detected (Not Detected)
--- NOTE | 2019-12-11 17:55 | PM.DS ---
DS: Diagnosis Admitting Diagnosis Admitting Diagnosis: Sepsis, unspecified organism Discharge Diagnosis (1) Acute respiratory failure with hypoxia: Code(s): J96.01 - Acute respiratory failure with hypoxia Status: Acute (2) Sepsis: Qualifiers: Sepsis acute organ dysfunction status: unspecified Sepsis type: sepsis due to unspecified organism Qualified Code(s): A41.9 - Sepsis, unspecified organism Code(s): A41.9 - Sepsis, unspecified organism Status: Acute (3) Pneumonia: Qualifiers: Laterality: bilateral Lung location: lower lobe of lung Pneumonia type: due to unspecified organism Qualified Code(s): J18.9 - Pneumonia, unspecified organism Code(s): J18.9 - Pneumonia, unspecified organism Status: Acute (4) Insulin dependent type 2 diabetes mellitus: Code(s): E11.9 - Type 2 diabetes mellitus without complications; 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 Hospital Course: Date of Service of Discharge: December 11, 2019. History of Present Illness: Patient is a 64-year-old gentle multiple medical problems including coronary disease, hypertension, sleep apnea, morbid obesity, insulin-requiring type 2 diabetes mellitus as well several other medical problems who presented to the emergency department by EMS from [facility] for evaluation of hemoptysis. Patient recently diagnosed with pneumonia. He reports cough for the last 3 days productive of clear sputum mixed with bright and red blood as well as rhinorrhea, wheezing and low-grade fevers. He also reports occasional, fleeting sharp pains throughout the anterior chest. Pain is not necessarily aggravated with inspiration or cough. He reports feelings of racing heart. He additionally has chronic edema in his lower limbs with left BKA also present. No change in swelling of his legs. No recent sweats or chills. No nausea or vomiting. In the emergency room, findings were consistent with acute respiratory failure, sepsis and pneumonia. As result, he was admitted for further evaluation and treatment. Course in Hospital: On admission, patient was started on IV ceftriaxone and azithromycin. He additionally was given nebulizer treatments. Patient did require oxygen but was able to wean down to 1 L of oxygen. He was noted to have slight increase in shortness of breath on 12/10/2019 which time he was given IV Lasix with improvement. At that time, he was noted to have a slight positive fluid balance. Patient did have a negative fluid balance by the time of discharge. WBC did normalize during his stay. Blood cultures remain negative to date. Sputum culture could not be performed as specimen was unacceptable. CTA chest was negative for pulmonary embolism but did show patching bilateral pneumonia with more focal consolidation in the right lower lobe. He did clinically improve prior to discharge with plan to transition to oral cefdinir at discharge. Patient's glucose was monitored throughout his stay. He did have elevated readings but home Victoza was on hold. He subsequently had some lower readings with decreased in scheduled NovoLog while maintaining Lantus 80 units at night. Glucose was acceptably controlled by the time of discharge but will need to be monitored at the nursing facility with appropriate adjustments made to his insulin. Plan to resume Victoza at discharge. Blood pressure was also monitored throughout his stay. He was continued on lisinopril but dose was increased for better control. Blood pressure acceptably controlled by the time of discharge. With the patient stab
== END 2019-12-11 18:00 | DRG 871 ==
LOC: ANHED 20:07 → ANH2MED 20:11
PROVIDERS: Internal Medicine; Physician Assistant; Admitting Provider Internal Medicine; Emergency Provider Emergency Medicine; Visit Provider Internal Medicine
DX: A41.9 Sepsis, unspecified organism (principal); J18.9 Pneumonia, unspecified organism; J96.01 Acute respiratory failure with hypoxia; R04.2 Hemoptysis; I10 Essential (primary) hypertension; E11.51 Type 2 diabetes mellitus with diabetic peripheral angiopathy without gangrene; I25.10 Atherosclerotic heart disease of native coronary artery without angina pectoris; J44.9 Chronic obstructive pulmonary disease, unspecified; G47.30 Sleep apnea, unspecified; E66.01 Morbid (severe) obesity due to excess calories; D64.9 Anemia, unspecified; G47.33 Obstructive sleep apnea (adult) (pediatric); Z91.19 Patient's noncompliance with other medical treatment and regimen; Z89.512 Acquired absence of left leg below knee; Z79.4 Long term (current) use of insulin
CPT/HCPCS: 36415; 71046; 71275; 80048; 80053; 80069; 81001; 83605; 83735; 84484; 85025; 85027; 85610; 85730; 86140; 87040; 87070; 87081; 87205; 87449; 87804; 87899; 93005; 93970; 94640; 96361; 96365; 96375; 97161; 99285; A9270; J0456; J0696; J1650; J1815; J1940; J2270; J7120; Q9967

== ENCOUNTER 2020-01-14 21:58 | Emergency (ER) | payer MEDICARE, MEDICAID, SELFPAY ==
--- NOTE | ~2020-01-14 | XR_ITS ---
EXAMINATION: XR chest 2V EXAM DATE: 01/14/2020 22:50 INDICATION: Hemoptysis. TECHNIQUE: Frontal and lateral projections of the chest obtained and reviewed. Comparison is made to prior examination from 12/08/2011. FINDINGS: Again there is subsegmental bibasilar airspace disease, more on the right lower lobe, stab le or with mild interval improvement. The cardiac silhouette is enlarged. Cardiac silhouette is stabl e in size compared to prior exam. Possible no sizable pleural effusions. Patient has diffuse idiopath ic skeletal hyperostosis (DISH). There is no pneumothorax suspected. Right acromioclavicular surgical changes. IMPRESSION: Right greater than left basilar subsegmental airspace disease, could be atelectasis or p neumonia. Stable or mildly improved when compared to prior study. Reviewed, dictated and finalized at location A. IMPRESSION: Right greater than left basilar subsegmental airspace disease, cou ld be atelectasis or pneumonia. Stable or mildly improved when compared to prio r study.
[2020-01-14 21:52] VITALS: BP 144/74; PULSE 89; RESP 24; TEMP 36.8; O2SAT 96
--- NOTE | 2020-01-14 21:58 | ED.GENADULT ---
HPI - General Adult General Chief complaint: Shortness of Breath/Dyspnea Stated complaint: COUGHED UP BLOOD Time Seen by Provider: 01/14/20 21:58 Source: patient and RN notes reviewed Mode of arrival: EMS Limitations: no limitations History of Present Illness HPI narrative: Pt is a 64 y/o male who presents to the ED, via EMS from [facility], with c/o spitting up blood that began at 7 PM today while watching TV. Pt denies coughing up blood or vomiting blood. Pt reports having a similar episode about a month ago. He states that he came to [place] for evaluation for his previous episode. Pt also reports a subjective fever, but denies dyspea, chest congestion, nasal discharge, hematochezia, and melena. Pt takes ASA 81 mg daily. MD complaint: Spitting blood Onset (ago): hour(s) Associated symptoms: fever/chills (subjective) Treatments prior to arrival: none Related Data Home Medications Medication Instructions Recorded Confirmed InPen (for Humalog) 11/14/19 12/08/19 Lantus Solostar U-100 Insulin 80 unit SUBCUT 11/14/19 12/08/19 Senna-S 1 tab-cap PO DAILY 11/14/19 12/08/19 Therapeutic-M Vitamin/Minerals 1 tablet PO DAILY 11/14/19 12/08/19 Victoza 2-Tushar 1.8 mg SUBCUT DAILY 11/14/19 12/08/19 acetaminophen [Acetaminophen Extra 500 mg PO Q6H PRN 11/14/19 12/08/19 Strength] ascorbic acid (vitamin C) 500 mg PO BID 11/14/19 12/08/19 ergocalciferol (vitamin D2) 50,000 unit PO WEEKLY 11/14/19 12/08/19 [Vitamin D2] escitalopram oxalate 5 mg PO DAILY 11/14/19 12/08/19 escitalopram oxalate 10 mg PO DAILY 11/14/19 12/08/19 gabapentin 600 mg PO TID 11/14/19 12/08/19 mirtazapine 30 mg PO HS 11/14/19 12/08/19 silver sulfadiazine [Silvadene] 1 applic TOPICAL DAILY PRN 11/14/19 12/08/19 tramadol 50 mg PO BID PRN 01/29/20 02/22/20 aspirin [Aspirin Low Dose] 81 mg PO DAILY 12/08/19 12/08/19 atorvastatin 10 mg PO HS 12/08/19 12/08/19 calcium alginate 12/08/19 12/08/19 Allergies Allergy/AdvReac Type Severity Reaction Status Date / Time Penicillins Allergy Unknown Fever Verified 01/14/20 21:57 Review of Systems Review of Systems: All systems reviewed & are unremarkable except as noted in HPI and below Constitutional: Constitutional: Reports chills and Reports fever(s) (subjective) ENT: Denies nasal discharge Respiratory: Respiratory: Denies chest congestion, Denies cough and Denies hemoptysis Gastrointestinal: Gastrointestinal: Denies melena, Denies hematochezia, Denies hematemesis and Reports other (spitting blood) [facility] Past Medical History Medical History (Updated 01/14/20 @ 23:42 by Erik Mckinney MD) CAD (coronary artery disease) Cervical vertebral fusion Chronic anemia Hypertension Insulin dependent type 2 diabetes mellitus Hemoglobin A1c was 11.6% November 15, 2019. Morbid obesity with BMI of 40.0-44.9, adult TAWANDA (obstructive sleep apnea) Noncompliant with PAP therapy. Peripheral vascular disease Surgical History Surgical History (Updated 12/08/19 @ 20:50 by Melonie Levi PA-C) Status post below-knee amputation of left lower extremity Status post herniorrhaphy Ventral hernia repair x3. Social History Social History (Updated 12/08/19 @ 20:51 by Melonie Levi PA-C) Social History: The patient has been at [facility] for approximately 2 years time. Before that he was living with his mother in [place].He is on disability. He had 2 daughters, one at the age of 34 from an MA. He has a lifelong non-smoker. He was previously a heavy drinker, but has abstained since moving to the rehab center. He denies illicit drug use. Smoking status: Never smoker Alcohol intake: never Substance use: never Substance use type: does not use Gender identity (if verbalized by the patient): Male Spiritual care concerns: No Agree to blood products: Yes Exam Const: General: healthy appearing and no acute distress Nutritional Appearance:
[2020-01-14 22:00] VITALS: PULSE 87; O2SAT 97
--- NOTE | 2020-01-14 22:09 | ECG_ITS ---
Measurements Intervals [place] Rate: 86 P: 75 OK: 160 QRS: 30 QRSD: 108 T: 66 QT: 384 QTc: 461 Interpretive Statements SINUS RHYTHM INCOMPLETE RIGHT BUNDLE BRANCH BLOCK BASELINE ARTIFACT- I, II, AVR, AVL, AVF, V1 BORDERLINE ECG Electronically Signed On 01-15-2020 7:12:06 CDT by Osmin Black D.O.
[2020-01-14 22:42] LABS: Basophils Absolute Auto 0.1 K/mm3 (0.0-0.1); Basophils Percent Auto 0.7 % (0.2-1.2); Eosinophils Absolute Auto 0.4 K/mm3 (0-0.3); Eosinophils Percent Auto 4.4 % (0-4.4); Hematocrit 38.5 % (42.0-52.0); Hemoglobin 12.3 g/dL (14.0-18.0); Immature Granulocyte Absolute 0.04 K/mm3 (0.00-0.031); Immature Granulocyte Percent A 0.5 % (0-0.5); Immature Platelet Fraction Pct 0.9 % (0.9-11.2); Lymphocytes Absolute Auto 2.81 K/mm3 (0.9-3.2); Lymphocytes Percent Auto 32.7 % (18.3-44.2); Mean Corpuscular HGB Conc 31.9 g/dl (32-36); Mean Corpuscular Hemoglobin 30.1 pg (26-34); Mean Corpuscular Volume 94.4 fl (80-100); Mean Platelet Volume 9.1 fl (7.4-10.4); Monocytes Absolute Auto 0.9 K/mm3 (0.1-0.6); Monocytes Percent Auto 10.8 % (2.6-8.5); Neutrophils Absolute Auto 4.4 K/mm3 (1.3-6.7); Neutrophils Percent Auto 50.9 % (45.5-73.1); Platelet Count Result 234 k/mm3 (150-375); Red Blood Count 4.08 M/mm3 (4.6-6.20); Red Cell Distribution Width 14.8 % (11.5-14.5); White Blood Count 8.6 K/mm3 (4.5-10.0)
[2020-01-14 22:50] LABS: INR 0.9; Prothrombin Time 12.3 Seconds (11.1-14.7)
[2020-01-14 22:51] LABS: Partial Thromboplastin Time 20.7 SECONDS (22.3-36.8)
[2020-01-14 22:55] LABS: Alanine Aminotransferase 15 U/L (4-50); Albumin Level 4.2 g/dL (3.5-5.1); Alkaline Phosphatase 76 U/L (38-126); Aspartate Amino Transferase 23 U/L (17-59); Bilirubin,Total 0.2 mg/dL (0.2-1.3); Blood Urea Nitrogen 16 mg/dL (9-20); Calcium 9.5 mg/dL (8.4-10.2); Carbon Dioxide 28 mmol/L (22-30); Chloride 100 mmol/L (98-107); Estimated Glomerular Filt Rate > 60; Glucose 228 mg/dL (75-110); Potassium 4.2 mmol/L (3.4-5.0); Sodium 135 mmol/L (137-145)
[2020-01-14 23:07] VITALS: BP 117/74; PULSE 83; RESP 20; O2SAT 97
[2020-01-15] VITALS: BP 109/75; PULSE 85; RESP 13; O2SAT 93
[2020-01-15 00:05] VITALS: BP 122/87; PULSE 82; RESP 14; TEMP 36.6; O2SAT 94
== END 2020-01-15 00:40 ==
PROVIDERS: Emergency Provider Emergency Medicine
DX: R04.2 Hemoptysis (principal); I25.10 Atherosclerotic heart disease of native coronary artery without angina pectoris; I10 Essential (primary) hypertension; E11.51 Type 2 diabetes mellitus with diabetic peripheral angiopathy without gangrene; Z79.4 Long term (current) use of insulin; Z79.82 Long term (current) use of aspirin; Z98.1 Arthrodesis status; G47.33 Obstructive sleep apnea (adult) (pediatric); Z89.512 Acquired absence of left leg below knee; D64.9 Anemia, unspecified; I45.10 Unspecified right bundle-branch block
CPT/HCPCS: 36415; 71046; 80053; 85025; 85055; 85610; 85730; 93005; 99283

== ENCOUNTER 2020-03-11 01:53 | Emergency (ER) | payer MEDICARE, MEDICAID, SELFPAY ==
[2020-03-11 01:52] VITALS: BP 150/75; PULSE 108; RESP 18; TEMP 36.7; O2SAT 95
--- NOTE | 2020-03-11 02:05 | ED.ABDPAIN ---
HPI - Abdominal Pain General Chief Complaint: Abdominal Pain Stated Complaint: ABD PAIN History of Present Illness HPI narrative: He has a large ventral abdominal hernia, which has been present for several months. He says that it seems to be getting bigger and more painful. On chart review he has been seen for this same complaint in the past. there does not seem to be any significant change in the hernia. He thinks he may have seen a surgeon after this, but he is not sure. Related Data Home Medications Medication Instructions Recorded Confirmed InPen (for Humalog) 11/14/19 12/08/19 Lantus Solostar U-100 Insulin 80 unit SUBCUT HS 11/14/19 12/08/19 Senna-S 1 tab-cap PO DAILY 11/14/19 12/08/19 Therapeutic-M Vitamin/Minerals 1 tablet PO DAILY 11/14/19 12/08/19 Victoza 2-Tushar 1.8 mg SUBCUT DAILY 11/14/19 12/08/19 acetaminophen [Acetaminophen Extra 500 mg PO Q6H PRN 11/14/19 12/08/19 Strength] ascorbic acid (vitamin C) 500 mg PO BID 11/14/19 12/08/19 ergocalciferol (vitamin D2) 50,000 unit PO WEEKLY 11/14/19 12/08/19 [Vitamin D2] escitalopram oxalate 5 mg PO DAILY 11/14/19 12/08/19 escitalopram oxalate 10 mg PO DAILY 11/14/19 12/08/19 gabapentin 600 mg PO TID 11/14/19 12/08/19 mirtazapine 30 mg PO HS 11/14/19 12/08/19 silver sulfadiazine [Silvadene] 1 applic TOPICAL DAILY PRN 11/14/19 12/08/19 tramadol 50 mg PO BID PRN 11/14/19 12/08/19 aspirin [Aspirin Low Dose] 81 mg PO DAILY 12/08/19 12/08/19 atorvastatin 10 mg PO HS 12/08/19 12/08/19 calcium alginate 12/08/19 12/08/19 Allergies Allergy/AdvReac Type Severity Reaction Status Date / Time Penicillins Allergy Unknown Fever Verified 03/11/20 01:59 Review of Systems Review of Systems: All systems reviewed & are unremarkable except as noted in HPI and below Constitutional: Constitutional: Denies fever(s) Cardiovascular: Cardiovascular: Denies chest pain Respiratory: Respiratory: Denies dyspnea Gastrointestinal: Gastrointestinal: Reports abdominal pain, Denies constipation, Denies diarrhea, Denies nausea and Denies vomiting PMFSH Past Medical History Medical History CAD (coronary artery disease) Cervical vertebral fusion Chronic anemia Hypertension Insulin dependent type 2 diabetes mellitus Hemoglobin A1c was 11.6% November 15, 2019. Morbid obesity with BMI of 40.0-44.9, adult TAWANDA (obstructive sleep apnea) Noncompliant with PAP therapy. Peripheral vascular disease Surgical History Surgical History Status post below-knee amputation of left lower extremity Status post herniorrhaphy Ventral hernia repair x3. Family History Family History Father Diabetes mellitus Family history of alcoholism Mother Diabetes mellitus Sibling Family history of emphysema Other Family history of cardiovascular disease Social History Social History Social History: The patient has been at [facility] for approximately 2 years time. Before that he was living with his mother in [place].He is on disability. He had 2 daughters, one at the age of 34 from an [place]. He has a lifelong non-smoker. He was previously a heavy drinker, but has abstained [facility]. He denies illicit drug use. Smoking status: Never smoker Alcohol intake: never Substance use: never Substance use type: does not use Gender identity (if verbalized by the patient): Male Spiritual care concerns: No Agree to blood products: Yes Exam Const: General: alert and ill appearing chronically Nutritional Appearance: obese morbidly obese Orientation/consciousness: patient oriented x3 HENMT: Head: normal to inspection Resp: Effort & Inspection: normal respiratory effort Auscultation: clear to auscult
[2020-03-11] MEDS: MORPHINE SULFATE 2 MG/ML INJ IV PUSH (02:26)
--- NOTE | 2020-03-11 03:11 | PC.NURSE ---
Addendum entered by Iris Burgess 03/11/20 06:46: Called [facility] for updated status...[id number] Addendum entered by Iris Burgess 03/11/20 05:24: Called [facility] for updated status...[id number] Original Note: Called [facility] to transport back to facility...ETA [id number]
[2020-03-11] MEDS: MORPHINE SULFATE 2 MG/ML INJ (04:15)
--- NOTE | 2020-03-11 04:15 | PC.NURSE ---
vrbo for morphine [address] hsu
[2020-03-11 05:21] VITALS: BP 158/90; PULSE 88; RESP 18; O2SAT 98
--- NOTE | 2020-03-11 07:09 | PC.NURSE ---
Report received from JUSTINA Peñaloza. Awaiting transport to [facility].
--- NOTE | 2020-03-11 08:20 | PC.NURSE ---
Call to [facility]. States are at max capabilities at present and won't be available until approx 1030. Pt updated, breakfast tray ordered.
== END 2020-03-11 11:00 ==
PROVIDERS: Emergency Provider Emergency Medicine
DX: K43.9 Ventral hernia without obstruction or gangrene (principal); I25.10 Atherosclerotic heart disease of native coronary artery without angina pectoris; I10 Essential (primary) hypertension; E11.9 Type 2 diabetes mellitus without complications; Z79.4 Long term (current) use of insulin; E66.01 Morbid (severe) obesity due to excess calories; Z68.41 Body mass index [BMI] 40.0-44.9, adult; G47.30 Sleep apnea, unspecified
CPT/HCPCS: 96374; 96376; 99284; J2270

== ENCOUNTER 2020-04-06 19:36 | Emergency (ER) | payer MEDICARE, MEDICAID, SELFPAY ==
[2020-04-06 19:40] VITALS: BP 193/71; PULSE 120; RESP 22; TEMP 37.7; O2SAT 100
--- NOTE | 2020-04-06 19:53 | ED.GIBLEED ---
HPI - GI Bleed General Chief complaint: GI Bleed Stated complaint: gi bleed Time Seen by Provider: 04/06/20 19:41 Source: patient History of Present Illness HPI Narrative: 64 years old white male morbidly obese presents with rectal bleed of fresh bright red blood started 4-hour prior to arrival to the emergency room. Patient denies any fever, chills, nausea, vomiting, similar symptoms. Patient does not take any blood thinner. Patient denies any abdominal pain. Related Data Home Medications Medication Instructions Recorded Confirmed InPen (for Humalog) 11/14/19 03/21/20 Lantus Solostar U-100 Insulin 80 unit SUBCUT HS 11/14/19 03/21/20 Senna-S 1 tab-cap PO DAILY 11/14/19 03/21/20 Therapeutic-M Vitamin/Minerals 1 tablet PO DAILY 11/14/19 03/21/20 Victoza 2-Tushar 1.8 mg SUBCUT DAILY 11/14/19 03/21/20 acetaminophen [Acetaminophen Extra 500 mg PO Q6H PRN 11/14/19 03/21/20 Strength] ascorbic acid (vitamin C) 500 mg PO BID 11/14/19 03/21/20 ergocalciferol (vitamin D2) 50,000 unit PO WEEKLY 11/14/19 03/21/20 [Vitamin D2] escitalopram oxalate 5 mg PO DAILY 11/14/19 03/21/20 escitalopram oxalate 10 mg PO DAILY 11/14/19 03/21/20 gabapentin 600 mg PO TID 11/14/19 03/21/20 mirtazapine 30 mg PO HS 11/14/19 03/21/20 silver sulfadiazine [Silvadene] 1 applic TOPICAL DAILY PRN 11/14/19 03/21/20 tramadol 50 mg PO BID PRN 11/14/19 03/21/20 aspirin [Aspirin Low Dose] 81 mg PO DAILY 12/08/19 03/21/20 atorvastatin 10 mg PO HS 12/08/19 03/21/20 calcium alginate 12/08/19 03/21/20 Allergies Allergy/AdvReac Type Severity Reaction Status Date / Time Penicillins Allergy Unknown Fever Verified 03/20/20 13:53 Review of Systems Review of Systems: Narrative: CONSTITUTIONAL: Denies fever, chills, or sweats. EYES: Denies visual changes, redness, or discharge. ENT: Denies rhinorrhea, congestion, sore throat, or otalgia. CARDIOVASCULAR: Denies chest pain, palpitations, or edema. RESPIRATORY: Denies cough or dyspnea. GASTROINTESTINAL: Denies abdominal pain, nausea, vomiting, or diarrhea. GENITOURINARY: Denies dysuria or hematuria. SKIN: Denies rash or itching. MUSCULOSKELETAL: Denies back pain, joint pain, or myalgia. NEUROLOGIC: Denies headache, numbness, or weakness. PSYCHIATRIC: Denies anxiety or depression. [facility] Past Medical History Medical History CAD (coronary artery disease) Cervical vertebral fusion Chronic anemia Hypertension Insulin dependent type 2 diabetes mellitus Hemoglobin A1c was 11.6% November 15, 2019. Morbid obesity with BMI of 40.0-44.9, adult TAWANDA (obstructive sleep apnea) Noncompliant with PAP therapy. Peripheral vascular disease Surgical History Surgical History Status post below-knee amputation of left lower extremity Status post herniorrhaphy Ventral hernia repair x3. Family History Family History Father Diabetes mellitus Family history of alcoholism Mother Diabetes mellitus Sibling Family history of emphysema Other Family history of cardiovascular disease Social History Social History Social History: The patient has been at [facility] for approximately 2 years time. Before that he was living with his mother in [place].He is on disability. He had 2 daughters, one at the age of 34 from an [place]. He has a lifelong non-smoker. He was previously a heavy drinker, but has abstained [facility]. He denies illicit drug use. Smoking status: Never smoker Alcohol intake: never Substance use: never Substance use type: does not use Gender identity (if verbalized by the patient): Male Spiritual care concerns: No Agree to blood products: Yes Exam Narrative: Exam Narrative: General appearance: Well-developed, well-delbert
[2020-04-06 19:57] LABS: Basophils Percent Auto 0.4 % (0.2-1.2); Eosinophils Absolute Auto 0.3 K/mm3 (0-0.3); Eosinophils Percent Auto 3.4 % (0-4.4); Hematocrit 39.7 % (42.0-52.0); Hemoglobin 13.3 g/dL (14.0-18.0); Immature Granulocyte Absolute 0.05 K/mm3 (0.00-0.031); Immature Granulocyte Percent A 0.5 % (0-0.5); Lymphocytes Absolute Auto 2.38 K/mm3 (0.9-3.2); Lymphocytes Percent Auto 25.6 % (18.3-44.2); Mean Corpuscular HGB Conc 33.5 g/dl (32-36); Mean Corpuscular Hemoglobin 30.4 pg (26-34); Mean Corpuscular Volume 90.6 fl (80-100); Mean Platelet Volume 8.6 fl (7.4-10.4); Monocytes Percent Auto 10.3 % (2.6-8.5); Neutrophils Absolute Auto 5.6 K/mm3 (1.3-6.7); Neutrophils Percent Auto 59.8 % (45.5-73.1); Platelet Count Result 214 k/mm3 (150-375); Red Blood Count 4.38 M/mm3 (4.6-6.20); Red Cell Distribution Width 13.2 % (11.5-14.5); White Blood Count 9.3 K/mm3 (4.5-10.0)
[2020-04-06] MEDS: PANTOPRAZOLE SODIUM IV 40 MG VIAL IV PUSH (20:01)
[2020-04-06] MEDS: SODIUM CHLORIDE 0.9% IV 1,000 ML 999 ML IV CONT (20:01)
--- NOTE | 2020-04-06 20:53 | PC.NURSE ---
Pt's daughter calling stating that she is the patient's POA and we cannot send him back to the [facility]. Explained that the patient has told us multiple times we are not allowed to tell her anything about his care and that the POA only takes effect if he is altered or unable to make decisions for himself. Pt's daughter became angry and demanded to speak to the boilerhouse mechanic. Call transferred to Sara HORN.
[2020-04-06 21:24] VITALS: BP 193/71; PULSE 105; RESP 19; O2SAT 100
[2020-04-06 22:51] VITALS: BP 167/94; PULSE 81; RESP 19; TEMP 36.2; O2SAT 100
== END 2020-04-06 22:53 ==
PROVIDERS: Emergency Provider Emergency Medicine
DX: K62.5 Hemorrhage of anus and rectum (principal); I25.10 Atherosclerotic heart disease of native coronary artery without angina pectoris; I10 Essential (primary) hypertension; G47.33 Obstructive sleep apnea (adult) (pediatric); E11.51 Type 2 diabetes mellitus with diabetic peripheral angiopathy without gangrene; E66.01 Morbid (severe) obesity due to excess calories; Z79.82 Long term (current) use of aspirin; Z89.512 Acquired absence of left leg below knee; Z79.4 Long term (current) use of insulin
CPT/HCPCS: 36415; 85025; 96361; 96374; 99284; C9113; J7030

== ENCOUNTER 2020-04-14 17:48 | Inpatient (IN) | payer MEDICARE, MEDICAID, SELFPAY ==
--- NOTE | ~2020-04-14 | CT_ITS ---
EXAMINATION: CT abdomen pelvis w con INDICATION: Abdominal pain TECHNIQUE: Computed tomographic images of the abdomen and pelvis were obtained after the administrati on of 100 cc of Omnipaque 350 intravenous contrast. The dose-length product (DLP) was 3144.93 mGy-cm. Automated exposure control and iterative reconstruction technique were employed. COMPARISON: 08/25/2019 FINDINGS: A calcified nodule of the left lower lobe is consistent with old granulomatous disease. The heart size is normal. The liver, spleen, pancreas, gallbladder, and adrenal glands are normal. The k idneys are unremarkable.. No pathologically enlarged abdominal or pelvic lymph nodes are identified. There is no free intraperitoneal gas or evidence of bowel obstruction. There is an unchanged large le ft ventral hernia of the left lower quadrant containing nonobstructed large and small bowel. A small bowel anastomosis is noted in the left lower quadrant. There is a small fat-containing left inguinal hernia. A fluid collection in the anterior abdominal wall to the right of midline is not significantl y changed in size, likely postoperative. IMPRESSION: 1. No CT correlate for the patient's symptoms. 2. Unchanged large ventral hernia of the left lower quadrant containing nonobstructed large and small bowel. Reviewed, dictated and finalized at location A. IMPRESSION: 1. No CT correlate for the patient's symptoms. 2. Unchanged large ventral hernia of the left lower quadrant containing nonobst ructed large and small bowel.
[2020-04-14 17:51] VITALS: BP 163/66; PULSE 100; RESP 20; TEMP 36.5; O2SAT 98
[2020-04-14 21:09] LABS: Basophils Percent Auto 0.4 % (0.2-1.2); Eosinophils Absolute Auto 0.3 K/mm3 (0-0.3); Eosinophils Percent Auto 2.9 % (0-4.4); Hematocrit 40.4 % (42.0-52.0); Hemoglobin 13.4 g/dL (14.0-18.0); Immature Granulocyte Absolute 0.05 K/mm3 (0.00-0.031); Immature Granulocyte Percent A 0.5 % (0-0.5); Lymphocytes Absolute Auto 1.95 K/mm3 (0.9-3.2); Mean Corpuscular HGB Conc 33.2 g/dl (32-36); Mean Corpuscular Hemoglobin 30.4 pg (26-34); Mean Corpuscular Volume 91.6 fl (80-100); Mean Platelet Volume 8.4 fl (7.4-10.4); Monocytes Percent Auto 10.1 % (2.6-8.5); Neutrophils Absolute Auto 6.5 K/mm3 (1.3-6.7); Neutrophils Percent Auto 66.1 % (45.5-73.1); Platelet Count Result 208 k/mm3 (150-375); Red Blood Count 4.41 M/mm3 (4.6-6.20); Red Cell Distribution Width 13.1 % (11.5-14.5); White Blood Count 9.8 K/mm3 (4.5-10.0)
[2020-04-14 21:23] LABS: Alanine Aminotransferase 17 U/L (4-50); Alkaline Phosphatase 94 U/L (38-126); Aspartate Amino Transferase 20 U/L (17-59); Bilirubin,Total 0.4 mg/dL (0.2-1.3); Blood Urea Nitrogen 22 mg/dL (9-20); Calcium 9.2 mg/dL (8.4-10.2); Carbon Dioxide 28 mmol/L (22-30); Chloride 98 mmol/L (98-107); Estimated Glomerular Filt Rate > 60; Glucose 422 mg/dL (75-110); Lipase 39 U/L (23-300); Potassium 4.7 mmol/L (3.4-5.0); Sodium 132 mmol/L (137-145)
[2020-04-14 21:40] VITALS: RESP 18
--- NOTE | 2020-04-14 21:52 | PC.NURSE ---
this RN attempted unsuccessfully x 3 to get iv access at this time. Another RN to attempt.
--- NOTE | 2020-04-14 21:57 | ED.NAVMDI ---
HPI - Nausea/Vomiting/Diarrhea General Chief complaint: Nausea/Vomiting/Diarrhea Stated complaint: nausea, nose bleed Time Seen by Provider: 04/14/20 21:47 History of Present Illness HPI Narrative: Patient presents for 1 day of left lower abdominal pain and vomiting. He has a known hernia that should be repaired. He rates his pain as 8 out of 10. He is vomited for a couple hours today. He has known diabetes which is treated by sliding scale insulin. He does not know what his sugars have been running. He is obese with a left below the knee amputation. He lives in a correction. MD elicited complaint: nausea, vomiting and abdominal pain Pertinent past history: hernia Onset (ago): hour(s) Associated nausea: Yes Associated abdominal pain: Yes Location of pain: LLQ Radiation: diffuse Pain consistency: constant Severity: severe Pain scale (0-10): 8 Exacerbating factors: vomiting Related Data Home Medications Medication Instructions Recorded Confirmed Therapeutic-M Vitamin/Minerals 1 tablet PO DAILY 11/14/19 03/21/20 Victoza 2-Tushar 1.8 mg SUBCUT DAILY 11/14/19 03/21/20 acetaminophen [Acetaminophen Extra 500 mg PO Q6H PRN 11/14/19 03/21/20 Strength] ascorbic acid (vitamin C) 500 mg PO BID 11/14/19 03/21/20 ergocalciferol (vitamin D2) 50,000 unit PO WEEKLY 11/14/19 03/21/20 [Vitamin D2] escitalopram oxalate 5 mg PO DAILY 11/14/19 03/21/20 escitalopram oxalate 10 mg PO DAILY 11/14/19 03/21/20 gabapentin 600 mg PO TID 11/14/19 03/21/20 mirtazapine 30 mg PO HS 11/14/19 03/21/20 tramadol 50 mg PO BID PRN 11/14/19 03/21/20 aspirin [Aspirin Low Dose] 81 mg PO DAILY 12/08/19 03/21/20 atorvastatin 10 mg PO HS 12/08/19 03/21/20 insulin lispro 32 unit SUBCUT TID 04/14/20 sennosides-docusate sodium 1 tab-cap PO DAILY 04/14/20 [Senexon-S] menthol [Biofreeze (menthol)] 1 applic TOPICAL BID 04/15/20 sodium chloride [Saline Nasal Mist] 1 spray INTRANASAL Q4H PRN 04/15/20 Allergies Allergy/AdvReac Type Severity Reaction Status Date / Time Penicillins Allergy Unknown Fever Verified 04/14/20 17:55 Review of Systems Review of Systems: Narrative: CONSTITUTIONAL: Denies fever, chills, or sweats. EYES: Denies visual changes, redness, or discharge. ENT: Denies rhinorrhea, congestion, sore throat, or otalgia. CARDIOVASCULAR: Denies chest pain, palpitations, or edema. RESPIRATORY: Denies cough or dyspnea. GASTROINTESTINAL: He has abdominal pain, nausea, vomiting. GENITOURINARY: Denies dysuria or hematuria. SKIN: Denies rash or itching. MUSCULOSKELETAL: Denies back pain, joint pain, or myalgia. NEUROLOGIC: Denies headache, numbness, or weakness. PSYCHIATRIC: Denies anxiety or depression. All systems reviewed & are unremarkable except as noted in HPI and below PMFSH Past Medical History Medical History CAD (coronary artery disease) Cervical vertebral fusion Chronic anemia Hypertension Insulin dependent type 2 diabetes mellitus Hemoglobin A1c was 11.6% November 15, 2019. Morbid obesity with BMI of 40.0-44.9, adult TAWANDA (obstructive sleep apnea) Noncompliant with PAP therapy. Peripheral vascular disease Surgical History Surgical History Status post below-knee amputation of left lower extremity Status post herniorrhaphy Ventral hernia repair x3. Social History Social History Social History: The patient has been at [facility] for approximately 2 years time. Before that he was living with his mother in [place].He is on disability. He had 2 daughters, one at the age of 34 from an [place]. He has a lifelong non-smoker. He was previously a heavy drinker, but has abst[facility]. He denies illicit drug use. Smoking status: Never smoker Alcohol intake: never Substance use: never Substance use type: does not us
[2020-04-14 22:22] LABS: Beta-Hydroxybutyrate/Acetoacetate 0.34 mmol/L (0.02-0.27)
[2020-04-14] MEDS: SODIUM CHLORIDE 0.9% IV 1,000 ML 999 ML IV CONT ×2 (22:43→23:20)
[2020-04-14] MEDS: ONDANSETRON INJ 4 MG/2 ML VIAL IV PUSH ×2 (22:46→23:15)
[2020-04-14] MEDS: FAMOTIDINE 20 MG/2 ML VIAL IV PUSH (23:15)
[2020-04-14] MEDS: INSULIN HUMAN REGULAR (*BKC) 100 UNITS/ML 15 UNITS IV PUSH (23:16)
[2020-04-14] MEDS: INSULIN HUMAN REGULAR (*BKC) 100 UNITS in SODIUM CHLORIDE 0.9% IV 99 ML IV CONT (23:16)
[2020-04-14 23:59] VITALS: BP 155/72; PULSE 109; RESP 17; TEMP 36.6; O2SAT 98
[2020-04-14 23:59] LABS: Add Urine Microscopic? YES; Appearance Urine Clear (Clear); Bacteria Urine Trace /hpf; Bilirubin Urine Negative (Negative); Blood Urine Negative (Negative); Color Urine Straw (Yellow); Glucose Urine UA 3+ mg/dL (Negative); Ketones Urine Trace mg/dL (Negative); Leukocyte Esterase Ur Negative LEU/UL (Negative); Nitrate Urine Negative (Negative); Protein Urine Negative (Negative); RBC Urine 0-2 /hpf (0-2); Squamous Epithelial Cell Urine Occasional /hpf (Few); Urobilinogen Urine Negative mg/dL (<2.0); WBC Urine 0-3 /hpf
[2020-04-15] VITALS (7 sets, daily range): BP systolic 118–154; BP diastolic 60–98; PULSE 88–104; RESP 16–20; TEMP 35.7–36.7; O2SAT 93–100; BMI 44.4
[2020-04-15] LABS: Specific Grav Ur 1.039 (1.001-1.035)
[2020-04-15 00:15] LABS: Glucose Point of Care 318 (65-105)
[2020-04-15 01:26] LABS: Glucose Point of Care 248 (65-105)
[2020-04-15 02:33] LABS: Glucose Point of Care 257 (65-105)
--- NOTE | 2020-04-15 02:52 | PC.NURSE ---
LATE ENTRY; PER CHEMISTRY PANEL PT'S GLUCOSE AT 2104 ON 04/14/2020 WAS 422. PT STARTED ON INSULIN GTT AT 2316 ON 04/14/2020 AT AN INITIAL RATE OF 7.2 UNITS PER HOUR. AT 2358 ON 04/14/2020 PT'S POC BLOOD GLUCOSE IS 318. AT 0123 ON 04/15/2020 PT'S POC BLOOD GLUCOSE IS 248; INSULIN GTT DECREASED TO 5.6 UNITS PER HOUR. AT 0231 ON 04/15/2020 PT'S POC BLOOD GLUCOSE INS 257, PT'S INSULIN GTT INCREASED TO 7.9 UNITS PER HOUR AT THIS TIME.
[2020-04-15 03:29] LABS: Glucose Point of Care 202 (65-105)
--- NOTE | 2020-04-15 03:29 | PC.NURSE ---
PT'S POC PLOOD GLUCOSE IS NOW 202 AT 0322 ON 04/15/2020. INSULIN GTT D/C'D AT THIS TIME PER EDP DR PEÑALOZA'S ORDERS.
[2020-04-15] MEDS: INSULIN DETEMIR 100 UNITS/ML 10 UNITS SUB-Q (04:31)
[2020-04-15] MEDS: INSULIN GLARGINE (*BKC) 100 UNITS/ML 15 UNITS SUB-Q (04:33)
--- NOTE | 2020-04-15 05:10 | ADMGEN ---
This patient, Wing Veloz, was admitted to Medical Room 343-01. Patient/family oriented to hospital policies and general routines including ID bracelet, bed and alarms, visiting hours, pain management, procedures, bathroom and other care routines, personal items, smoking policy, room service/diet, and visiting hours. Valuables list has been completed. Information on how to activate the Rapid Response Team has been discussed. Patient/Family are encouraged to report perceived risks to care and to ask questions if they do not understand what they are told or what they should do.
[2020-04-15 06:02] LABS: Glucose Point of Care 258 (65-105)
[2020-04-15] MEDS: ACETAMINOPHEN 325 MG TABLET 650 MG PO (06:28)
[2020-04-15 07:44] LABS: Glucose Point of Care 277 (65-105)
[2020-04-15] MEDS: INSULIN ASPART (*BKC) 100 UNITS/ML SUB-Q ×3 (08:00→16:33)
[2020-04-15 11:42] LABS: Glucose Point of Care 391 (65-105)
--- NOTE | 2020-04-15 12:05 | PM.IMHP ---
H&P: HPI History of Present Illness Chief complaint: DKA, abdominal pain, vomiting Narrative: Date of visit 04/15 0900. Wing Veloz is a 64 year old white male with uncontrolled diabetes mellitus ,hypertension, obesity who presented to the emergency room from the senior living with complaints of nosebleed followed by nausea and vomiting and malaise. No headache, short breath,or chest pain. Had an episode of nosebleed about 2 months to 3 months ago also that subsided. Has had a chronic abdominal hernia which is recurrent and causes discomfort from time to time. Last hospitalized here in November with pna and respiratory failure and prior to that in Oct with UGI bleed secondary to PUD. Review of Systems Review of Systems: Narrative: Constitutional weight is fairly stable may have what is some but uncertain no fever chills Eye no double vision or scotoma\ Mouth no pharyngitis laryngitis Pulmonary no breath wheezing or cough CV no chest pain or palpitation GI no melena hematochezia or diarrhea Muscle skeletal no particular joint discomfort Integument no skin breakdown rashes Neuro no seizures no syncope PMFSH Past Medical History Medical History CAD (coronary artery disease) Cervical vertebral fusion Chronic anemia Hypertension Insulin dependent type 2 diabetes mellitus Hemoglobin A1c was 11.6% November 15, 2019. Morbid obesity with BMI of 40.0-44.9, adult TAWANDA (obstructive sleep apnea) Noncompliant with PAP therapy. Peripheral vascular disease Surgical History Surgical History Status post below-knee amputation of left lower extremity Status post herniorrhaphy Ventral hernia repair x3. Family History Family History (Updated 04/15/20 @ 12:13 by Eleuterio Dick MD) Father , at age 69 Diabetes mellitus Family history of alcoholism Mother Diabetes mellitus Sibling Family history of emphysema Other Family history of cardiovascular disease Social History Social History Social History: The patient has been at [facility] for approximately 2 years time. Before that he was living with his mother in [place].He is on disability. He had 2 daughters, one at the age of 34 from an [place]. He has a lifelong non-smoker. He was previously a heavy drinker, but has abstained since moving to the rehab center. He denies illicit drug use. Smoking status: Never smoker Second hand tobacco smoke exposure: No Alcohol intake: never Substance use: never Substance use type: does not use Gender identity (if verbalized by the patient): Male Spiritual care concerns: No Agree to blood products: Yes Meds Home Medications and Allergies Home Medications Medication Instructions Recorded Confirmed Type Therapeutic-M Vitamin/Minerals 1 tablet PO DAILY 11/14/19 04/15/20 History Victoza 2-Tushar 1.8 mg SUBCUT DAILY 11/14/19 04/15/20 History acetaminophen [Acetaminophen Extra 500 mg PO Q6H PRN 11/14/19 04/15/20 History Strength] ascorbic acid (vitamin C) 500 mg PO BID 11/14/19 04/15/20 History ergocalciferol (vitamin D2) 50,000 unit PO WEEKLY 11/14/19 04/15/20 History [Vitamin D2] escitalopram oxalate 5 mg PO DAILY 11/14/19 04/15/20 History escitalopram oxalate 10 mg PO DAILY 11/14/19 04/15/20 History gabapentin 600 mg PO TID 11/14/19 04/15/20 History mirtazapine 30 mg PO HS 11/14/19 04/15/20 History tramadol 50 mg PO BID PRN 11/14/19 04/15/20 History aspirin [Aspirin Low Dose] 81 mg PO DAILY 12/08/19
[2020-04-15] MEDS: GABAPENTIN 300 MG CAPSULE 600 MG PO ×2 (13:37→16:33)
[2020-04-15] MEDS: ESCITALOPRAM OXALATE 10 MG TABLET PO (13:38)
[2020-04-15] MEDS: ESCITALOPRAM OXALATE 5 MG TABLET PO (13:38)
[2020-04-15] MEDS: lisinopriL 10 MG TABLET PO (13:38)
[2020-04-15] MEDS: INSULIN ASPART (*BKC) 100 UNITS/ML 10 UNITS SUB-Q ×2 (13:40→16:33)
--- NOTE | 2020-04-15 14:54 | PC.NURSE ---
Care resumed from Nabila Ahmadi RN.
[2020-04-15] MEDS: ASCORBIC ACID 500 MG TABLET PO (16:32)
[2020-04-15 16:34] LABS: Glucose Point of Care 299 (65-105)
[2020-04-15] MEDS: MELATONIN 3 MG TABLET PO (20:50)
[2020-04-15] MEDS: MIRTAZAPINE 30 MG TABLET PO (20:50)
[2020-04-15] MEDS: ATORVASTATIN 10 MG TABLET PO (20:50)
[2020-04-15] MEDS: INSULIN GLARGINE (*BKC) 100 UNITS/ML 30 UNITS SUB-Q (20:53)
[2020-04-15 21:14] LABS: Glucose Point of Care 266 (65-105)
[2020-04-16 05:50] LABS: Basophils Percent Auto 0.5 % (0.2-1.2); Eosinophils Absolute Auto 0.3 K/mm3 (0-0.3); Eosinophils Percent Auto 4.2 % (0-4.4); Hematocrit 36.6 % (42.0-52.0); Hemoglobin 12.3 g/dL (14.0-18.0); Immature Granulocyte Absolute 0.03 K/mm3 (0.00-0.031); Immature Granulocyte Percent A 0.4 % (0-0.5); Lymphocytes Absolute Auto 1.84 K/mm3 (0.9-3.2); Lymphocytes Percent Auto 24.2 % (18.3-44.2); Mean Corpuscular HGB Conc 33.6 g/dl (32-36); Mean Corpuscular Hemoglobin 30.7 pg (26-34); Mean Corpuscular Volume 91.3 fl (80-100); Monocytes Absolute Auto 0.9 K/mm3 (0.1-0.6); Monocytes Percent Auto 11.4 % (2.6-8.5); Neutrophils Absolute Auto 4.5 K/mm3 (1.3-6.7); Neutrophils Percent Auto 59.3 % (45.5-73.1); Platelet Count Result 187 k/mm3 (150-375); Red Blood Count 4.01 M/mm3 (4.6-6.20); White Blood Count 7.6 K/mm3 (4.5-10.0)
[2020-04-16 05:52] VITALS: BP 106/46; PULSE 95; RESP 18; TEMP 36.2; O2SAT 95
[2020-04-16 05:59] LABS: Hemoglobin A1C 11.6 % (<5.7)
[2020-04-16 06:05] LABS: Blood Urea Nitrogen 16 mg/dL (9-20); Calcium 8.7 mg/dL (8.4-10.2); Carbon Dioxide 27 mmol/L (22-30); Chloride 99 mmol/L (98-107); Estimated CRCL calculation 148 ml/min; Estimated Glomerular Filt Rate > 60; Glucose 359 mg/dL (75-110); Potassium 4.3 mmol/L (3.4-5.0); Sodium 130 mmol/L (137-145)
[2020-04-16 08:39] LABS: Glucose Point of Care 458 (65-105)
[2020-04-16] MEDS: THERAPEUTIC MULTIVITAMINS/MINERALS TAB (*BKC) 1 TABLET PO (09:02)
[2020-04-16] MEDS: SENNA/DOCUSATE SODIUM TABLET 1 TAB PO (09:02)
[2020-04-16] MEDS: ESCITALOPRAM OXALATE 5 MG TABLET PO (09:02)
[2020-04-16] MEDS: ESCITALOPRAM OXALATE 10 MG TABLET PO (09:02)
[2020-04-16] MEDS: lisinopriL 10 MG TABLET PO (09:02)
[2020-04-16] MEDS: ASCORBIC ACID 500 MG TABLET PO ×2 (09:02→16:32)
[2020-04-16] MEDS: GABAPENTIN 300 MG CAPSULE 600 MG PO ×3 (09:02→16:32)
[2020-04-16] MEDS: INSULIN GLARGINE (*BKC) 100 UNITS/ML 10 UNITS SUB-Q (09:04)
[2020-04-16] MEDS: INSULIN ASPART (*BKC) 100 UNITS/ML 15 UNITS SUB-Q ×2 (09:04→16:33)
[2020-04-16] MEDS: INSULIN ASPART (*BKC) 100 UNITS/ML SUB-Q ×2 (09:05→16:33)
[2020-04-16 11:43] LABS: Glucose Point of Care 428 (65-105)
--- NOTE | 2020-04-16 11:52 | PC.NURSE ---
1200 Novolog sliding scale and 1200 TIDWM 15 units Novolog nonadministered at 1200 due to receiving orders from Dr. Dick to put in orders for [address] Dick stated patient should receive 30units total with lunch meal.
[2020-04-16] MEDS: INSULIN ASPART (*BKC) 100 UNITS/ML 30 UNITS SUB-Q (11:54)
[2020-04-16 14:00] VITALS: BP 107/58; PULSE 78; RESP 18; TEMP 36.4; O2SAT 95
[2020-04-16 16:34] LABS: Glucose Point of Care 339 (65-105)
--- NOTE | 2020-04-16 17:54 | PM.IMPN ---
Progress Note: A&P Assessment and Plan (1) Epistaxis: Code(s): R04.0 - Epistaxis Status: Acute Assessment and Plan: Has stopped spontaneously. Will use Hagaman nasal spray and monitor closely there is no significant bleed because there is no anemia (2) Nausea and vomiting: Code(s): R11.2 - Nausea with vomiting, unspecified Status: Acute Assessment and Plan: Probably secondary to the epistaxis because he said it made him nauseated now and after the nose bleed even had coughed some blood. Antiemetics and advanced diet (3) Insulin dependent type 2 diabetes mellitus: Code(s): E11.9 - Type 2 diabetes mellitus without complications; Z79.4 - care home (current) use of insulin Status: Acute Assessment and Plan: Uncontrolled. A1c 11.6 . Had been on Lantus in the past restarted that now at 50 hs and continue a scheduled NovoLog with meals up to 20 U wiht SS (4) Hypertension: Qualifiers: Hypertension type: essential hypertension Qualified Code(s): I10 - Essential (primary) hypertension Code(s): I10 - Essential (primary) hypertension Status: Acute Assessment and Plan: Pressure well controlled continue low-dose ADAMARIS-inhibitor (5) Morbid obesity: Code(s): E66.01 - Morbid (severe) obesity due to excess calories Status: Acute Assessment and Plan: Ongoing issue needs to address himself (6) DVT prophylaxis: Code(s): Z29.9 - Encounter for prophylactic measures, unspecified Status: Acute Assessment and Plan: With epistaxis and amputation can use mechanical on right leg only (7) Recurrent ventral incisional hernia: Code(s): K43.2 - Incisional hernia without obstruction or gangrene Status: Acute Assessment and Plan: If worsens then would get surgical opinion but does not appear to be incarcerated though very difficult to examine given his size Subjective Date/time seen: 04/16/20 17:54 Interval history: Date of visit 04/16. 64-year-old hypertensive type 2 diabetic admitted with epistaxis, nausea vomiting, and uncontrolled diabetes. He has had no further nose bleed eating well and no further nausea or vomiting. Blood sugars continue to run high Exam Narrative: Exam Narrative: Blood pressure 106/60 pulse is 76 afebrile saturating 95% on room air Pupils equal reactive to light sclera anicteric Mouth normal no evidence of blood Nose no active bleeding or residue of the same Lungs clear CV regular rate rhythm no murmurs gallops slightly tacky Abdomen is soft morbidly obese and hard to discern definite hernia on physical exam with obesity Extremities left amputation with clean stump and no open areas Some edema to the right foot but strong dorsalis pedis, posterior tibial 2+ Neuro alert pleasant cooperative no focal deficits, cranial nerves 2-12 are intact Objective Data Vital Signs Vital Signs: Vital Signs - 24 hr 04/15/20 18:09 04/15/20 20:39 04/15/20 21:00 Temperature 36.3 C L 36.3 C L Pulse Rate 96 98 98 Respiratory Rate 18 18 18 Blood Pressure 154/70 H 141/69 H Pulse Oximetry 93 97 97 04/16/20 05:52 04/16/20 14:00 Temperature 36.2 C L 36.4 C Pulse Rate 95 78 Respiratory Rate 18 18 Blood Pressure 106/46 L 107/58 L Pulse Oximetry 95 95 Intake/Output Intake/Output: Intake & Output 04/13/20 04/14/20 04/15/20 04/16/20 23:59 23:59 23:59 23:59 Intake Total 1000 2656.9 2050 Output Total 1500 5 Balance 1000 1156.9 25 Meds/Results Medications: Active Medications Generic Name Dose Route Start Last Admin Trade Name Freq PRN Reason Stop Dose Admin Acetaminophen 500 mg 04/15/20 12:58 Tylenol Tablet PO Q6H PRN Pain Rated 1-3 Ascorbic Acid 500 mg 04/15/20 17:00 04/16/20 16:32 Vitamin C PO 500 mg BID PAULIE Administration Atorvastatin Calcium 10 mg 04/15/20 21:00 04/15/20 20:50 Lipitor PO 10 mg HS PAULIE Administration Dextrose 12.
[2020-04-16 19:18] LABS: SARS-CoV-2 RNA PCR Negative
[2020-04-16 21:30] VITALS: BP 148/79; PULSE 89; RESP 18; TEMP 36.6; O2SAT 96
[2020-04-16 21:35] VITALS: PULSE 89; RESP 18; O2SAT 96
[2020-04-16] MEDS: MIRTAZAPINE 30 MG TABLET PO (21:41)
[2020-04-16] MEDS: ATORVASTATIN 10 MG TABLET PO (21:41)
[2020-04-16] MEDS: MELATONIN 3 MG TABLET PO (21:41)
[2020-04-16] MEDS: INSULIN GLARGINE (*BKC) 100 UNITS/ML 50 UNITS SUB-Q (21:44)
[2020-04-17 00:47] LABS: Glucose Point of Care 354 (65-105)
[2020-04-17 05:22] VITALS: BP 146/68; PULSE 78; RESP 16; TEMP 37.1; O2SAT 94
[2020-04-17 05:47] LABS: Blood Urea Nitrogen 21 mg/dL (9-20); Calcium 8.5 mg/dL (8.4-10.2); Carbon Dioxide 27 mmol/L (22-30); Chloride 99 mmol/L (98-107); Estimated CRCL calculation 106 ml/min; Estimated Glomerular Filt Rate > 60; Glucose 357 mg/dL (75-110); Potassium 4.8 mmol/L (3.4-5.0); Sodium 132 mmol/L (137-145)
[2020-04-17 09:11] LABS: Glucose Point of Care 406 (65-105)
[2020-04-17] MEDS: ESCITALOPRAM OXALATE 10 MG TABLET PO (09:12)
[2020-04-17] MEDS: SENNA/DOCUSATE SODIUM TABLET 1 TAB PO (09:12)
[2020-04-17] MEDS: ESCITALOPRAM OXALATE 5 MG TABLET PO (09:12)
[2020-04-17] MEDS: GABAPENTIN 300 MG CAPSULE 600 MG PO ×3 (09:12→16:43)
[2020-04-17] MEDS: lisinopriL 10 MG TABLET PO (09:12)
[2020-04-17] MEDS: ASCORBIC ACID 500 MG TABLET PO ×2 (09:12→16:44)
[2020-04-17] MEDS: INSULIN GLARGINE (*BKC) 100 UNITS/ML 10 UNITS SUB-Q (09:13)
[2020-04-17] MEDS: INSULIN ASPART (*BKC) 100 UNITS/ML SUB-Q ×2 (09:13→16:43)
[2020-04-17] MEDS: THERAPEUTIC MULTIVITAMINS/MINERALS TAB (*BKC) 1 TABLET PO (09:13)
[2020-04-17] MEDS: INSULIN ASPART (*BKC) 100 UNITS/ML 25 UNITS SUB-Q ×3 (09:14→16:43)
[2020-04-17 11:44] LABS: Glucose Point of Care 414 (65-105)
[2020-04-17] MEDS: INSULIN ASPART (*BKC) 100 UNITS/ML 15 UNITS SUB-Q (11:55)
[2020-04-17 14:00] VITALS: BP 129/62; PULSE 86; RESP 20; TEMP 36.6; O2SAT 97
[2020-04-17 16:47] LABS: Glucose Point of Care 303 (65-105)
--- NOTE | 2020-04-17 18:31 | PM.IMPN ---
Progress Note: A&P Assessment and Plan (1) Epistaxis: Code(s): R04.0 - Epistaxis Status: Acute Assessment and Plan: Has stopped spontaneously. Will use Klahr nasal spray and monitor closely there is no significant bleed because there is no anemia (2) Nausea and vomiting: Code(s): R11.2 - Nausea with vomiting, unspecified Status: Acute Assessment and Plan: Probably secondary to the epistaxis because he said it made him nauseated now and after the nose bleed even had coughed some blood. Antiemetics and advanced diet (3) Insulin dependent type 2 diabetes mellitus: Code(s): E11.9 - Type 2 diabetes mellitus without complications; Z79.4 - [facility] (current) use of insulin Status: Acute Assessment and Plan: Uncontrolled. A1c 11.6 . Had been on Lantus in the past restarted that now at 60 hs and continue a scheduled NovoLog with meals up to 25 U with SS (4) Hypertension: Qualifiers: Hypertension type: essential hypertension Qualified Code(s): I10 - Essential (primary) hypertension Code(s): I10 - Essential (primary) hypertension Status: Acute Assessment and Plan: Pressure well controlled continue low-dose ADAMARIS-inhibitor (5) Morbid obesity: Code(s): E66.01 - Morbid (severe) obesity due to excess calories Status: Acute Assessment and Plan: Ongoing issue needs to address himself (6) DVT prophylaxis: Code(s): Z29.9 - Encounter for prophylactic measures, unspecified Status: Acute Assessment and Plan: With epistaxis and amputation can use mechanical on right leg only (7) Recurrent ventral incisional hernia: Code(s): K43.2 - Incisional hernia without obstruction or gangrene Status: Acute Assessment and Plan: If worsens then would get surgical opinion but does not appear to be incarcerated though very difficult to examine given his size Subjective Date/time seen: 04/17/20 18:31 Interval history: Date of visit 04/17. 64-year-old hypertensive type 2 diabetic admitted with epistaxis, nausea vomiting, and uncontrolled diabetes. He has had no further nose bleed eating well and no further nausea or vomiting. Blood sugars continue to run high Exam Narrative: Exam Narrative: Blood pressure 130/62 pulse is 86 afebrile saturating 95% on room air Pupils equal reactive to light sclera anicteric Mouth normal no evidence of blood Nose no active bleeding or residue of the same Lungs clear CV regular rate rhythm no murmurs gallops slightly tacky Abdomen is soft morbidly obese and hard to discern definite hernia on physical exam with obesity Extremities left amputation with clean stump and no open areas Some edema to the right foot but strong dorsalis pedis, posterior tibial 2+ Neuro alert pleasant cooperative no focal deficits, cranial nerves 2-12 are intact Objective Data Vital Signs Vital Signs: Vital Signs - 24 hr 04/16/20 21:30 04/16/20 21:35 04/17/20 05:22 Temperature 36.6 C 37.1 C Pulse Rate 89 89 78 Respiratory Rate 18 18 16 Blood Pressure 148/79 H 146/68 H Pulse Oximetry 96 96 94 04/17/20 14:00 Temperature 36.6 C Pulse Rate 86 Respiratory Rate 20 Blood Pressure 129/62 Pulse Oximetry 97 Intake/Output Intake/Output: Intake & Output 04/14/20 04/15/20 04/16/20 04/17/20 23:59 23:59 23:59 23:59 Intake Total 1000 2656.9 2050 2072 Output Total 1500 5 2375 Balance 1000 1156.9 25 -303 Meds/Results Medications: Active Medications Generic Name Dose Route Start Last Admin Trade Name Freq PRN Reason Stop Dose Admin Acetaminophen 500 mg 04/15/20 12:58 Tylenol Tablet PO Q6H PRN Pain Rated 1-3 Ascorbic Acid 500 mg 04/15/20 17:00 04/17/20 16:44 Vitamin C PO 500 mg BID PAULIE Administration Atorvastatin Calcium 10 mg 04/15/20 21:00 04/16/20 21:41 Lipitor PO 10 mg HS PAULIE Administration Dextrose 12.5 gm 04/15/20 03:54 Dextrose 50%
[2020-04-17 20:51] VITALS: BP 160/78; PULSE 83; RESP 16; TEMP 36.1; O2SAT 97
[2020-04-17] MEDS: MIRTAZAPINE 30 MG TABLET PO (21:05)
[2020-04-17] MEDS: MELATONIN 3 MG TABLET PO (21:05)
[2020-04-17] MEDS: ATORVASTATIN 10 MG TABLET PO (21:05)
[2020-04-17] MEDS: INSULIN GLARGINE (*BKC) 100 UNITS/ML 70 UNITS SUB-Q (21:08)
[2020-04-17 21:09] LABS: Glucose Point of Care 275 (65-105)
[2020-04-18 06:00] VITALS: BP 121/60; PULSE 83; RESP 15; TEMP 36.3; O2SAT 99
[2020-04-18 06:40] LABS: Blood Urea Nitrogen 21 mg/dL (9-20); Calcium 8.9 mg/dL (8.4-10.2); Carbon Dioxide 29 mmol/L (22-30); Chloride 99 mmol/L (98-107); Estimated CRCL calculation 148 ml/min; Estimated Glomerular Filt Rate > 60; Glucose 226 mg/dL (75-110); Potassium 4.4 mmol/L (3.4-5.0); Sodium 134 mmol/L (137-145)
[2020-04-18 07:42] LABS: Glucose Point of Care 227 (65-105)
[2020-04-18] MEDS: INSULIN ASPART (*BKC) 100 UNITS/ML 25 UNITS SUB-Q ×2 (07:59→12:00)
[2020-04-18] MEDS: INSULIN ASPART (*BKC) 100 UNITS/ML SUB-Q ×2 (07:59→12:00)
[2020-04-18] MEDS: SENNA/DOCUSATE SODIUM TABLET 1 TAB PO (08:02)
[2020-04-18] MEDS: ESCITALOPRAM OXALATE 5 MG TABLET PO (08:02)
[2020-04-18] MEDS: ASCORBIC ACID 500 MG TABLET PO (08:02)
[2020-04-18] MEDS: ESCITALOPRAM OXALATE 10 MG TABLET PO (08:03)
[2020-04-18] MEDS: THERAPEUTIC MULTIVITAMINS/MINERALS TAB (*BKC) 1 TABLET PO (08:03)
[2020-04-18] MEDS: lisinopriL 10 MG TABLET PO (08:03)
[2020-04-18] MEDS: GABAPENTIN 300 MG CAPSULE 600 MG PO ×2 (08:03→12:01)
[2020-04-18 11:46] LABS: Glucose Point of Care 325 (65-105)
[2020-04-18 15:14] VITALS: BP 125/64; PULSE 74; RESP 14; TEMP 36.7; O2SAT 97
--- NOTE | 2020-04-22 10:51 | PM.DS ---
DS: Admitting Diagnosis Admitting Diagnosis Admitting Diagnosis: Epistaxis DS: Discharge Diagnosis Discharge Diagnosis (1) Epistaxis: Code(s): R04.0 - Epistaxis Status: Acute Assessment and Plan: stopped spontaneously. l use Dauphin nasal spray and monitor there is no significant bleed because there is no anemia if recurs later possible ENT referral (2) Nausea and vomiting: Code(s): R11.2 - Nausea with vomiting, unspecified Status: Acute Assessment and Plan: Probably secondary to the epistaxis because he said it made him nauseated now and after the nose bleed even had coughed some blood. advanced diet and symptoms did not return (3) Insulin dependent type 2 diabetes mellitus: Code(s): E11.9 - Type 2 diabetes mellitus without complications; Z79.4 - retirement (current) use of insulin Status: Acute Assessment and Plan: Uncontrolled. A1c 11.6 . Had been on Lantus in the past restarted that now at 70 hs at discharge and continue a scheduled NovoLog with meals 32 U tidAC FBS day of dicharge 226 still not controlled but much improved (4) Hypertension: Qualifiers: Hypertension type: essential hypertension Qualified Code(s): I10 - Essential (primary) hypertension Code(s): I10 - Essential (primary) hypertension Status: Acute Assessment and Plan: Pressure well controlled continue low-dose ADAMARIS-inhibitor (5) Morbid obesity: Code(s): E66.01 - Morbid (severe) obesity due to excess calories Status: Acute Assessment and Plan: Ongoing issue needs to address himself (6) Recurrent ventral incisional hernia: Code(s): K43.2 - Incisional hernia without obstruction or gangrene Status: Acute Assessment and Plan: If worsens then would get surgical opinion but does not appear to be incarcerated though very difficult to examine given his size DS: Summary Hospital Course Hospital Course: 64-year-old hypertensive type 2 diabetic admitted with epistaxis and nausea and vomiting. Epistaxis subsided spontaneously and treated with Dauphin nasal spray no further nausea with advancing of diet and no further nose bleeds. Blood blood sugar difficult to control eventuallyrestarted Lantus advancing to 70 units HS bmp at [place] next week Time Spent with Patient Time attestation: Total time spent providing and/or coordinating discharge services:35 minutes Exam Narrative: Exam Narrative: condition on discharge Bp 124/64 p 74 sat 97% RA afibrile lungs clear CV rrr Abd soft nontender, bs normal active Extr L AKA, R no edema Discharge Plan Discharge Attending physician on discharge: Eleuterio Dick Consulting providers: Joce Booker Discharging Clinician: Eleuterio Dick Patient Disposition: [facility] Long-Term/Asst Living Activity: as tolerated Diet: diabetic and low sodium Patient Instructions: Antibiotic Form, Pain Management (DC), Diabetic Ketoacidosis (DC), Abdominal Pain (ED), Diabetic Hyperglycemia (DC), Hemoglobin A1c (GEN) Stand Alone Forms: General Discharge Information Follow-up/Referrals: Joce Booker MD [Physician] - 2 Weeks Discharge Medications: New Lantus U-100 Insulin 100 unit/mL Solution 70 units subcut HS 30 Days Qty: 21 RF: 0 tramadol 50 mg Tablet 50 mg PO BID PRN (Reason: Pain) 20 Days RF: 0 Continued gabapentin 600 mg Tablet 600 mg PO TID RF: 0 acetaminophen [Acetaminophen Extra Strength] 500 mg Tablet 500 mg PO Q6H PRN (Reason: Pain) RF: 0 ascorbic acid (vitamin C) 500 mg Tablet 500 mg PO BID RF: 0 mirtazapine 30 mg Tablet 30 mg PO HS RF: 0 Therapeutic-M Vitamin/Minerals 27-0.4 mg Tablet 1 tablet PO DAILY RF: 0 escitalopram oxalate 10 mg tablet 10 mg PO DAILY RF: 0 escitalopram oxalate 5 mg tablet 5 mg PO DAILY RF: 0 ergocalciferol (vitamin D2) [Vitamin D2] 1,250 mcg (50,000 unit) Capsule 50,000 uni
== END 2020-04-18 15:30 | DRG 151 ==
LOC: ANHED 04-15 04:09 → ANH3MED 04-15 04:34
PROVIDERS: Emergency Medicine; Admitting Provider Internal Medicine; Emergency Provider Emergency Medicine; Visit Provider Internal Medicine
DX: R04.0 Epistaxis (principal); Z68.41 Body mass index [BMI] 40.0-44.9, adult; R11.2 Nausea with vomiting, unspecified; Z11.59 Encounter for screening for other viral diseases; E11.51 Type 2 diabetes mellitus with diabetic peripheral angiopathy without gangrene; I10 Essential (primary) hypertension; E66.01 Morbid (severe) obesity due to excess calories; I25.10 Atherosclerotic heart disease of native coronary artery without angina pectoris; D64.9 Anemia, unspecified; K43.2 Incisional hernia without obstruction or gangrene; G47.33 Obstructive sleep apnea (adult) (pediatric); Z91.19 Patient's noncompliance with other medical treatment and regimen; Z98.1 Arthrodesis status; Z79.4 Long term (current) use of insulin; Z89.512 Acquired absence of left leg below knee
CPT/HCPCS: 36415; 74177; 80048; 80053; 81001; 82010; 82948; 83036; 83690; 85025; 87635; 96361; 96365; 96366; 96375; 99285; A9270; C9803; G0378; J1815; J2405; J7030; Q9967; U0003

== ENCOUNTER 2020-08-05 10:23 | Emergency (ER) | payer MEDICARE, MEDICAID, SELFPAY ==
--- NOTE | ~2020-08-05 | XR_ITS ---
EXAMINATION: XR chest 1V portable INDICATION: Chest pain TECHNIQUE: Portable AP chest at 1114 hours COMPARISON: 01/14/2020, 12/09/2019 FINDINGS: The lungs are free of acute opacities. There is no pleural effusion or pneumothorax. Pleura l-based opacity of the left lung likely reflects pleural fat base on the comparison CT. The heart siz e is upper limits of normal for technique. IMPRESSION: 1. No acute cardiopulmonary abnormality. Reviewed, dictated and finalized at location A.
--- NOTE | 2020-08-05 10:29 | ECG_ITS ---
Measurements Intervals [place] Rate: 90 P: 72 WI: 160 QRS: 57 QRSD: 112 T: 69 QT: 357 QTc: 439 Interpretive Statements SINUS RHYTHM INCOMPLETE RIGHT BUNDLE BRANCH BLOCK BORDERLINE ECG Electronically Signed On 08-05-2020 10:37:39 CDT by Osmin Black D.O.
--- NOTE | 2020-08-05 10:34 | ED.RECABL ---
HPI - Recheck/Abnormal Lab/Rx General Chief Complaint: Extremity Injury, Lower Stated Complaint: L LEG PAIN/BLOOS SUGAR ISSUES History of Present Illness HPI narrative: Brought in by EMS from [facility] for high blood sugar. He has a h/o poorly controlled DM. Glucose has been difficult to control recently. He has been getting sliding scale insulin without correction. He is currently being treated for cellulitis of the RLE and has a BKA on the left. No fever, nausea, vomiting. He is not sure if he has any chest pain or SOB. Related Data Home Medications Medication Instructions Recorded Confirmed Therapeutic-M Vitamin/Minerals 1 tablet PO DAILY 11/14/19 04/15/20 acetaminophen [Acetaminophen Extra 500 mg PO Q6H PRN 11/14/19 04/15/20 Strength] ascorbic acid (vitamin C) 500 mg PO BID 11/14/19 04/15/20 ergocalciferol (vitamin D2) 50,000 unit PO WEEKLY 11/14/19 04/15/20 [Vitamin D2] escitalopram oxalate 5 mg PO DAILY 11/14/19 04/15/20 escitalopram oxalate 10 mg PO DAILY 11/14/19 04/15/20 gabapentin 600 mg PO TID 11/14/19 04/15/20 mirtazapine 30 mg PO HS 11/14/19 04/15/20 aspirin [Aspirin Low Dose] 81 mg PO DAILY 12/08/19 04/15/20 atorvastatin 10 mg PO HS 12/08/19 04/15/20 insulin lispro 32 unit SUBCUT TID 04/14/20 04/15/20 sennosides-docusate sodium 1 tab-cap PO DAILY 04/14/20 04/15/20 [Senexon-S] Biofreeze (menthol) 1 applic TOPICAL BID 04/15/20 04/15/20 sodium chloride [Saline Nasal Mist] 1 spray INTRANASAL Q4H PRN 04/15/20 04/15/20 Allergies Allergy/AdvReac Type Severity Reaction Status Date / Time Penicillins Allergy Unknown Fever Verified 04/14/20 17:55 Review of Systems Review of Systems: All systems reviewed & are unremarkable except as noted in HPI and below Constitutional: Constitutional: Denies fever(s) ENT: Denies sore throat Gastrointestinal: Gastrointestinal: Denies nausea and Denies vomiting Neurologic: Denies weakness PMFSH Past Medical History Medical History CAD (coronary artery disease) Cervical vertebral fusion Chronic anemia Hypertension Insulin dependent type 2 diabetes mellitus Hemoglobin A1c was 11.6% November 15, 2019. Morbid obesity with BMI of 40.0-44.9, adult TAWANDA (obstructive sleep apnea) Noncompliant with PAP therapy. Peripheral vascular disease Surgical History Surgical History Status post below-knee amputation of left lower extremity Status post herniorrhaphy Ventral hernia repair x3. Family History Family History Father , at age 69 Diabetes mellitus Family history of alcoholism Mother Diabetes mellitus Sibling Family history of emphysema Other Family history of cardiovascular disease Social History Social History Social History: The patient has been at [facility] for approximately 2 years time. Before that he was living with his mother in [place].He is on disability. He had 2 daughters, one at the age of 34 from an [place]. He has a lifelong non-smoker. He was previously a heavy drinker, but has abstained since moving to the rehab center. He denies illicit drug use. Smoking status: Never smoker Second hand tobacco smoke exposure: No Alcohol intake: never Substance use: never Substance use type: does not use Gender identity (if verbalized by the patient): Male Spiritual care concerns: No Agree to blood products: Yes Exam Const: General: healthy appearing, no acute distress and alert Nutritional Appearance: obese morbidly obese Orientation/consciousness: patient oriented x3 HENMT: Head: normal to inspection Resp: Effort & Inspection: normal respiratory effort Auscultation: clear to auscultation bilaterally Cardio: Rate: regular rate Rh
[2020-08-05] MEDS: SODIUM CHLORIDE 0.9% IV 1,000 ML 999 ML IV CONT (10:35)
[2020-08-05 10:56] LABS: Basophils Percent Auto 0.5 % (0.2-1.2); Eosinophils Absolute Auto 0.2 K/mm3 (0-0.3); Hematocrit 39.7 % (42.0-52.0); Hemoglobin 12.9 g/dL (14.0-18.0); Immature Granulocyte Absolute 0.08 K/mm3 (0.00-0.031); Immature Granulocyte Percent A 1.1 % (0-0.5); Lymphocytes Absolute Auto 1.91 K/mm3 (0.9-3.2); Lymphocytes Percent Auto 25.7 % (18.3-44.2); Mean Corpuscular HGB Conc 32.5 g/dl (32-36); Mean Corpuscular Hemoglobin 30.5 pg (26-34); Mean Corpuscular Volume 93.9 fl (80-100); Mean Platelet Volume 8.6 fl (7.4-10.4); Monocytes Percent Auto 13.1 % (2.6-8.5); Neutrophils Absolute Auto 4.2 K/mm3 (1.3-6.7); Neutrophils Percent Auto 56.6 % (45.5-73.1); Platelet Count Result 184 k/mm3 (150-375); Red Blood Count 4.23 M/mm3 (4.6-6.20); Red Cell Distribution Width 13.3 % (11.5-14.5); White Blood Count 7.4 K/mm3 (4.5-10.0)
[2020-08-05 11:06] LABS: Alanine Aminotransferase 24 U/L (4-50); Albumin Level 3.8 g/dL (3.5-5.1); Alkaline Phosphatase 80 U/L (38-126); Anion Gap 8 mmol/L (8-16); Aspartate Amino Transferase 22 U/L (17-59); Bilirubin,Total 0.4 mg/dL (0.2-1.3); Blood Urea Nitrogen 27 mg/dL (9-20); Calcium 9.5 mg/dL (8.4-10.2); Carbon Dioxide 28 mmol/L (22-30); Chloride 97 mmol/L (98-107); Estimated Glomerular Filt Rate > 60; Glucose 350 mg/dL (75-110); Potassium 4.8 mmol/L (3.4-5.0); Sodium 133 mmol/L (137-145)
[2020-08-05 11:08] VITALS: BP 146/75; PULSE 95; RESP 18; TEMP 36.9; O2SAT 96
[2020-08-05 11:18] LABS: Troponin I < 0.012 ng/mL (0.000-0.034)
[2020-08-05 11:19] LABS: Prothrombin Time 12.8 Seconds (11.1-14.7)
[2020-08-05 11:20] LABS: Partial Thromboplastin Time 25.7 SECONDS (22.3-36.8)
[2020-08-05 12:53] LABS: Add Urine Microscopic? YES; Appearance Urine Clear (Clear); Bilirubin Urine Negative (Negative); Blood Urine Negative (Negative); Color Urine Yellow (Yellow); Glucose Urine UA 3+ mg/dL (Negative); Ketones Urine Negative (Negative); Leukocyte Esterase Ur Negative LEU/UL (Negative); Mucus Urine Rare /lpf; Nitrate Urine Negative (Negative); Protein Urine Negative (Negative); RBC Urine 0-2 /hpf (0-2); Specific Grav Ur 1.017 (1.001-1.035); Squamous Epithelial Cell Urine Rare /hpf (Few); Urobilinogen Urine Negative mg/dL (<2.0); WBC Urine 0-3 /hpf
[2020-08-05 13:14] LABS: Glucose Point of Care 235 (65-105)
[2020-08-05 13:29] VITALS: BP 162/70; PULSE 92; PULSE 97; RESP 18; O2SAT 92; O2SAT 97
[2020-08-05 15:48] LABS: Glucose Point of Care 286 (65-105)
[2020-08-05] MEDS: INSULIN HUMAN REGULAR (*BKC) 100 UNITS/ML 8 UNITS SUB-Q (15:57)
[2020-08-05 16:26] VITALS: BP 161/64; PULSE 92; O2SAT 97
== END 2020-08-05 16:28 ==
PROVIDERS: Emergency Provider Emergency Medicine
DX: E11.65 Type 2 diabetes mellitus with hyperglycemia (principal); Z79.4 Long term (current) use of insulin; I25.10 Atherosclerotic heart disease of native coronary artery without angina pectoris; I10 Essential (primary) hypertension
CPT/HCPCS: 36415; 51701; 71045; 80053; 81001; 82948; 84484; 85025; 85610; 85730; 93005; 96360; 99284; J1815; J7030

== ENCOUNTER 2020-11-04 22:33 | Inpatient (IN) | payer MEDICARE, MEDICAID, SELFPAY ==
[2020-11-04 22:42] VITALS: BP 142/105; PULSE 108; RESP 22; TEMP 36.6; O2SAT 95
--- NOTE | 2020-11-04 22:50 | PC.NURSE ---
patient here from [place] with new wound on right posterior thigh area near his buttocks per EMS and [facility] staff. patient on monitor. has SL from EMS. updated on expected treatment
--- NOTE | 2020-11-04 22:51 | ED.WOUNDLAC ---
HPI - Wound/Laceration General Chief Complaint: Wound/Laceration Stated Complaint: pressure ulcer Time Seen by Provider: 11/04/20 22:50 History of Present Illness HPI narrative: 64 yo male w/ h/o DM presents from [facility] for a wound. He has a painful wound on his right buttock which he noticed for the first time today. He has a h/o left BKA and neuropathy and he is mostly bed bound. No fever, chills, nausea, vomiting. Related Data Home Medications Medication Instructions Recorded Confirmed Therapeutic-M Vitamin/Minerals 1 tablet PO DAILY 11/14/19 11/05/20 acetaminophen [Acetaminophen Extra 500 mg PO Q6H PRN 11/14/19 11/05/20 Strength] ascorbic acid (vitamin C) 500 mg PO BID 11/14/19 11/05/20 ergocalciferol (vitamin D2) 50,000 unit PO WEEKLY 11/14/19 11/05/20 [Vitamin D2] escitalopram oxalate 5 mg PO DAILY 11/14/19 11/05/20 escitalopram oxalate 10 mg PO DAILY 11/14/19 11/05/20 gabapentin 600 mg PO TID 11/14/19 11/05/20 mirtazapine 30 mg PO HS 11/14/19 11/05/20 aspirin [Aspirin Low Dose] 81 mg PO DAILY 12/08/19 11/05/20 atorvastatin 10 mg PO HS 12/08/19 11/05/20 insulin lispro 32 unit SUBCUT TID 04/14/20 11/05/20 sennosides-docusate sodium 1 tab-cap PO DAILY 04/14/20 11/05/20 [Senexon-S] Biofreeze (menthol) 1 applic TOPICAL BID 04/15/20 11/05/20 sodium chloride [Saline Nasal Mist] 1 spray INTRANASAL Q4H PRN 04/15/20 11/05/20 Allergies Allergy/AdvReac Type Severity Reaction Status Date / Time Penicillins Allergy Unknown Fever Verified 04/14/20 17:55 Review of Systems Review of Systems: All systems reviewed & are unremarkable except as noted in HPI and below Constitutional: Constitutional: Denies chills and Denies fever(s) Cardiovascular: Cardiovascular: Denies chest pain Respiratory: Respiratory: Denies dyspnea Gastrointestinal: Gastrointestinal: Denies abdominal pain Genitourinary: Genitourinary: Denies dysuria Musculoskeletal: Musculoskeletal: Reports back pain Neurologic: Denies weakness [facility] Past Medical History Medical History (Updated 11/05/20 @ 05:18 by Erik Mckinney MD) CAD (coronary artery disease) Cervical vertebral fusion Chronic anemia Hypertension Insulin dependent type 2 diabetes mellitus Hemoglobin A1c was 11.6% November 15, 2019. Morbid obesity with BMI of 40.0-44.9, adult TAWANDA (obstructive sleep apnea) Noncompliant with PAP therapy. Peripheral vascular disease Surgical History Surgical History Status post below-knee amputation of left lower extremity Status post herniorrhaphy Ventral hernia repair x3. Family History Family History Father , at age 69 Diabetes mellitus Family history of alcoholism Mother Diabetes mellitus Sibling Family history of emphysema Other Family history of cardiovascular disease Social History Social History Social History: The patient has been at [facility] for approximately 2 years time. Before that he was living with his mother in [place].He is on disability. He had 2 daughters, one at the age of 34 from an [place]. He has a lifelong non-smoker. He was previously a heavy drinker, but has abstained since moving to the rehab center. He denies illicit drug use. Smoking status: Never smoker Second hand tobacco smoke exposure: No Alcohol intake: never Substance use: never Substance use type: does not use Gender identity (if verbalized by the patient): Male Spiritual care concerns: No Agree to blood products: Yes Exam Const: General: no acute distress, alert and ill appearing Nutritional Appearance: obese Orientation/consciousness: patient oriented x3 HENMT: Head: normal to inspection Resp: Effort & Inspection: normal respiratory effort Auscultation: clear to ausculta
[2020-11-04 23:40] LABS: Basophils Percent Auto 0.4 % (0.2-1.2); Eosinophils Absolute Auto 0.3 K/mm3 (0-0.3); Eosinophils Percent Auto 3.7 % (0-4.4); Hematocrit 37.4 % (42.0-52.0); Hemoglobin 12.2 g/dL (14.0-18.0); Immature Granulocyte Absolute 0.08 K/mm3 (0.00-0.031); Immature Granulocyte Percent A 0.9 % (0-0.5); Lymphocytes Absolute Auto 2.02 K/mm3 (0.9-3.2); Lymphocytes Percent Auto 21.7 % (18.3-44.2); Mean Corpuscular HGB Conc 32.6 g/dl (32-36); Mean Corpuscular Hemoglobin 30.4 pg (26-34); Mean Corpuscular Volume 93.3 fl (80-100); Mean Platelet Volume 8.1 fl (7.4-10.4); Monocytes Absolute Auto 1.1 K/mm3 (0.1-0.6); Monocytes Percent Auto 11.6 % (2.6-8.5); Neutrophils Absolute Auto 5.7 K/mm3 (1.3-6.7); Neutrophils Percent Auto 61.7 % (45.5-73.1); Platelet Count Result 190 k/mm3 (150-375); Red Blood Count 4.01 M/mm3 (4.6-6.20); Red Cell Distribution Width 13.7 % (11.5-14.5); White Blood Count 9.3 K/mm3 (4.5-10.0)
[2020-11-04 23:50] LABS: Prothrombin Time 13.7 Seconds (11.1-14.7)
[2020-11-04 23:51] LABS: Partial Thromboplastin Time 27.3 SECONDS (22.3-36.8)
[2020-11-05] VITALS (7 sets, daily range): BP systolic 109–161; BP diastolic 51–92; PULSE 96–109; RESP 18–22; TEMP 36.2–36.7; O2SAT 94–97; BMI 47.5
[2020-11-05] MEDS: MORPHINE SULFATE (*CRX) 4 MG/ML INJ IV PUSH (00:09)
[2020-11-05 00:27] LABS: Alanine Aminotransferase 19 U/L (4-50); Albumin Level 3.5 g/dL (3.5-5.1); Alkaline Phosphatase 83 U/L (38-126); Anion Gap 3 mmol/L (8-16); Aspartate Amino Transferase 22 U/L (17-59); Bilirubin,Total 0.3 mg/dL (0.2-1.3); Blood Urea Nitrogen 13 mg/dL (9-20); CRP 3.2 mg/dL (<1.0); Calcium 9.1 mg/dL (8.4-10.2); Carbon Dioxide 29 mmol/L (22-30); Chloride 103 mmol/L (98-107); Estimated CRCL calculation 135 ml/min; Estimated Glomerular Filt Rate > 60; Glucose 181 mg/dL (75-110); Potassium 4.1 mmol/L (3.4-5.0); Sodium 135 mmol/L (137-145)
--- NOTE | 2020-11-05 02:27 | ADMGEN ---
This patient, Wing Veloz, was admitted to [facility] Surg Room 313-01. Patient/family oriented to hospital policies and general routines including ID bracelet, bed and alarms, visiting hours, pain management, procedures, bathroom and other care routines, personal items, smoking policy, room service/diet, and visiting hours. Information on how to activate the Rapid Response Team has been discussed. Patient/Family are encouraged to report perceived risks to care and to ask questions if they do not understand what they are told or what they should do.
[2020-11-05 08:51] LABS: Glucose Point of Care 285 (65-105)
[2020-11-05] MEDS: MORPHINE SULFATE (*CRX) 2 MG/ML INJ IV PUSH ×2 (08:58→22:04)
--- NOTE | 2020-11-05 11:27 | PM.IMHP ---
H&P: HPI History of Present Illness Date/Time: 11/05/20 11:27 Chief Complaint: Cellulitis, abscess Narrative: Wing Veloz is a 64 year old male with a history of diabetes status post left BKA, hypertension, hyperlipidemia, presented to the emergency room with right buttock pain for 2 days. Patient states he knows the pain about 2 days ago and yesterday it became worse with associated fevers and chills. He showed the nurse's at his [facility] who decided to bring him to the emergency room for further evaluation. He denies any chest pain, shortness of breath, cough, nausea, vomiting, abdominal pain, diarrhea, constipation, leg swelling, calf pain, dysuria, frequent urination, urinary retention, headache, lightheadedness, dizziness, near-syncope, or any other associated symptoms at this time. Initial vitals showed afebrile, heart rate 95, respiratory rate 18, blood pressure 146/75, oxygen saturation 96% on room air. Normal WBC at 9300, stable normocytic anemia with a hemoglobin of 12, hematocrit 37%, no elevation of neutrophils, normal coag panel, stable at 135, normal renal function, glucose was 181, CRP slightly elevated at 3.2. In the emergency room the patient had an I and D and cultures were taken of his wound to his right buttock. He was admitted for IV antibiotics for abscess and some cellulitis. Code status: Full code [id number]: , Nicolle Veloz Review of Systems Review of Systems: All systems reviewed & are unremarkable except as noted in HPI and below PMFSH Past Medical History Medical History (Updated 11/05/20 @ 12:52 by Lynnette Guo PA-C) CAD (coronary artery disease) Chronic anemia Hypertension Insulin dependent type 2 diabetes mellitus Hemoglobin A1c was 11.6% November 15, 2019. Morbid obesity with BMI of 40.0-44.9, adult TAWANDA (obstructive sleep apnea) Noncompliant with PAP therapy. Peripheral vascular disease Ventral hernia Surgical History Surgical History Status post below-knee amputation of left lower extremity Status post herniorrhaphy Ventral hernia repair x3. Family History Family History Father , at age 69 Diabetes mellitus Family history of alcoholism Mother Diabetes mellitus Sibling Family history of emphysema Other Family history of cardiovascular disease Social History Social History (Updated 11/05/20 @ 12:53 by Lynnette Guo PA-C) Social History: The patient has been at [facility]. Before that he was living with his mother in [place]. He is on disability. He had 2 daughters, one at the age of 34 from an [place]. He has a lifelong non-smoker. He was previously a heavy drinker, but has abstained since moving to the rehab center. He denies illicit drug use. Patient wishes to be a full code. His [id number] is his mother, Nicolle Veloz. Smoking status: Never smoker Second hand tobacco smoke exposure: No Alcohol intake: never Substance use: never Substance use type: does not use Living arrangements: [facility] Additional occupation/education comments: He is on disability Gender identity (if verbalized by the patient): Male Spiritual care concerns: No Agree to blood products: Yes Meds Home Medications and Allergies Home Medications Medication Instructions Recorded Confirmed Type Therapeutic-M Vitamin/Minerals 1 tablet PO DAILY 11/14/19 11/05/20 History acetaminophen [Acetaminophen Extra 500 mg PO Q6H PRN 11/14/19 11/05/20 History Strength] ascorbic acid (vitamin C) 500 mg PO BID 11/14/19 11/05/20 History ergocalciferol (vitamin D2) 50,000 unit PO WEEKLY 11/14/19 11/05/20 History [Vitamin D2] escitalopram oxalate 5 mg PO DAILY 11/14/19 11/05/20 History escitalopram oxalate 10 mg PO DAILY 11/14/19 11/05/20 History gabapentin
[2020-11-05] MEDS: SALINE 0.65% NAS SOLN 44 ML BTL 1 SPRAY NASAL (14:09)
[2020-11-05] MEDS: GABAPENTIN 300 MG CAPSULE 600 MG PO ×2 (14:10→17:16)
[2020-11-05] MEDS: BETAMETHASONE/CLOTRIMAZOLE CR 15 GM TUBE 1 APPLIC TOPICAL ×2 (14:10→21:18)
[2020-11-05] MEDS: ENOXAPARIN 40 MG/0.4 ML SYRINGE SUB-Q (14:10)
--- NOTE | 2020-11-05 15:08 | ADMGEN ---
This patient, Wing Veloz, was admitted to [facility] Room 221-02. Patient oriented to hospital policies and general routines including ID bracelet, bed and alarms, visiting hours, pain management, procedures, bathroom and other care routines, personal items, smoking policy, room service/diet, and visiting hours. Information on how to activate the Rapid Response Team has been discussed. Patient are encouraged to report perceived risks to care and to ask questions if they do not understand what they are told or what they should do.
--- NOTE | 2020-11-05 15:15 | PC.NURSE ---
Pt transferred to [facility] at this time. Report given to Kyle, with questions answered to the best of my ability.
[2020-11-05] MEDS: traMADol HCL (*CRX) 50 MG TABLET PO (16:00)
[2020-11-05 17:15] LABS: Glucose Point of Care 434 (65-105)
[2020-11-05] MEDS: ASCORBIC ACID 500 MG TABLET PO (17:16)
[2020-11-05] MEDS: INSULIN ASPART (*BKC) 100 UNITS/ML 35 UNITS SUB-Q (17:30)
[2020-11-05] MEDS: MENTHOL 10% / METHYL SALICYLATE 15% 57 GM TUBE 1 APPLIC TOPICAL (18:24)
[2020-11-05] MEDS: ATORVASTATIN 10 MG TABLET PO (21:17)
[2020-11-05] MEDS: MIRTAZAPINE 30 MG TABLET PO (21:18)
[2020-11-05] MEDS: MELATONIN 3 MG TABLET PO (21:18)
[2020-11-05 21:20] LABS: Glucose Point of Care 272 (65-105)
[2020-11-05] MEDS: INSULIN GLARGINE (*BKC) 100 UNITS/ML 80 UNITS SUB-Q (21:50)
[2020-11-06 04:56] VITALS: BP 138/59; PULSE 84; RESP 22; TEMP 36; O2SAT 95
[2020-11-06 04:56] LABS: Hematocrit 35.9 % (42.0-52.0); Hemoglobin 11.9 g/dL (14.0-18.0); Mean Corpuscular HGB Conc 33.1 g/dl (32-36); Mean Corpuscular Hemoglobin 30.1 pg (26-34); Mean Corpuscular Volume 90.9 fl (80-100); Mean Platelet Volume 8.3 fl (7.4-10.4); Platelet Count Result 183 k/mm3 (150-375); Red Blood Count 3.95 M/mm3 (4.6-6.20); Red Cell Distribution Width 13.6 % (11.5-14.5); White Blood Count 7.1 K/mm3 (4.5-10.0)
[2020-11-06 05:11] LABS: Hemoglobin A1C 11.4 % (<5.7)
[2020-11-06 05:13] LABS: Anion Gap 1 mmol/L (8-16); Blood Urea Nitrogen 12 mg/dL (9-20); CRP 4.5 mg/dL (<1.0); Calcium 8.6 mg/dL (8.4-10.2); Carbon Dioxide 29 mmol/L (22-30); Chloride 101 mmol/L (98-107); Estimated CRCL calculation 132 ml/min; Estimated Glomerular Filt Rate > 60; Glucose 283 mg/dL (75-110); Potassium 4.1 mmol/L (3.4-5.0); Sodium 131 mmol/L (137-145)
[2020-11-06 06:53] LABS: Glucose Point of Care 305 (65-105)
[2020-11-06] MEDS: INSULIN GLARGINE (*BKC) 100 UNITS/ML 15 UNITS SUB-Q (07:52)
[2020-11-06] MEDS: INSULIN ASPART (*BKC) 100 UNITS/ML 35 UNITS SUB-Q ×3 (07:53→17:29)
[2020-11-06] MEDS: INSULIN ASPART (*BKC) 100 UNITS/ML SUB-Q ×3 (07:54→17:29)
[2020-11-06] MEDS: ASCORBIC ACID 500 MG TABLET PO ×2 (07:58→17:35)
[2020-11-06] MEDS: ASPIRIN 81 MG ENTERIC TABLET PO (07:58)
[2020-11-06] MEDS: ESCITALOPRAM OXALATE 10 MG TABLET PO (07:58)
[2020-11-06] MEDS: ESCITALOPRAM OXALATE 5 MG TABLET PO (07:59)
[2020-11-06] MEDS: lisinopriL 10 MG TABLET PO (07:59)
[2020-11-06] MEDS: ENOXAPARIN 40 MG/0.4 ML SYRINGE SUB-Q (07:59)
[2020-11-06] MEDS: SENNA/DOCUSATE SODIUM TABLET 1 TAB PO (07:59)
[2020-11-06] MEDS: THERAPEUTIC MULTIVITAMINS/MINERALS TAB (*BKC) 1 TABLET PO (07:59)
[2020-11-06] MEDS: GABAPENTIN 300 MG CAPSULE 600 MG PO ×3 (07:59→17:35)
[2020-11-06] MEDS: MENTHOL 10% / METHYL SALICYLATE 15% 57 GM TUBE 1 APPLIC TOPICAL ×2 (08:06→16:18)
[2020-11-06] MEDS: traMADol HCL (*CRX) 50 MG TABLET PO ×2 (08:09→16:16)
[2020-11-06 09:35] VITALS: RESP 22; O2SAT 95
[2020-11-06 11:49] LABS: Glucose Point of Care 336 (65-105)
[2020-11-06 12:52] LABS: Vancomycin Trough 11.7 ug/mL (10.0-20.0)
[2020-11-06 14:00] VITALS: BP 121/54; PULSE 83; RESP 18; TEMP 36; O2SAT 99
--- NOTE | 2020-11-06 14:45 | PM.IMPN ---
Progress Note: A&P Assessment and Plan (1) Cellulitis and abscess of buttock: Code(s): L02.31 - Cutaneous abscess of buttock; L03.317 - Cellulitis of buttock Status: Acute Assessment and Plan: Small abscess with some surrounding cellulitis and warmth on arrival. ER performed an I&D at bedside and cultures were taken. Patient started on IV cefazolin and vancomycin for his history of diabetes. Preliminary report on abscess shows moderate amount of staph aureus. Pending sensitivity results at this time. Patient reports some improvement today after I&D Wound care evaluated the patient and placed orders for the nurse to lightly packed open wound to right buttock with 1.4 and iodoform ribbon rope, cover with an ABD pad and change daily. Stable, no leukocytosis, CRP slightly elevated at 3.2 on arrival been increased this morning to 4.5. 11/06/2020: Will discontinue IV cefazolin since culture is growing Staph aureus, pending sensitivities. Continue IV vancomycin. Will continue monitoring daily, continue IV antibiotics and labs. 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 Will start him back on his home insulin regimen. Hemoglobin A1c is 11.4%. Not well controlled. Check glucose ACHS. Hypoglycemic protocol in place. Sliding scale insulin in place. Make adjustments if necessary. (3) Hypertension: Qualifiers: Hypertension type: essential hypertension Qualified Code(s): I10 - Essential (primary) hypertension Code(s): I10 - Essential (primary) hypertension Status: Acute Assessment and Plan: Blood pressure slightly elevated 138/59. Will continue his home medications and continue monitoring BP. (4) TAWANDA (obstructive sleep apnea): Code(s): G47.33 - Obstructive sleep apnea (adult) (pediatric) Status: Acute Assessment and Plan: Will order home CPAP settings. Patient states he no longer has a CPAP machine but is interested in getting another one. Time Spent With Patient Time with patient: 25 - 35 minutes Subjective Date/time seen: 11/06/20 14:45 Interval history: Date of service 11/06/2020: He reports feeling better today but still having some tenderness when sitting on his buttock. He states due to his pain he would like some morphine. He denies any fevers, chills, chest pain, shortness of breath, cough, nausea, vomiting, abdominal pain, leg swelling, calf pain, or any other symptoms at this time. Review of Systems Review of Systems: All systems reviewed & are unremarkable except as noted in HPI and below Exam Narrative: Exam Narrative: General: 64-year-old male sitting up on the side of the bed shaving. Appears comfortable. In no acute distress. Skin: See picture below. No jaundice or cyanosis. Good skin turgor. Neck: Full range of motion. Supple. Respiratory: Lungs are clear to auscultation bilaterally. No bony chest wall tenderness. Cardiovascular: The heart has a regular rate and rhythm without murmur. Lower extremities: Left BKA, surgical stump well-healed without any erythema or abnormality. Right lower extremity with venous stasis changes as well as dry skin and some scabbing noted. No edema or drainage noted. Right Distal pulses are easily palpated. No calf tenderness to palpation on right. Gastrointestinal: Large midline surgical scar, well healed. Large ventral hernia noted. The abdomen is soft, nontender and nondistended with active bowel sounds. Psychiatric: Lucid and oriented. Memory intact. Neurologic: No focal deficits. Speech is clear. No facial droop
[2020-11-06] MEDS: polyethylene glycoL 3350 17 GM POWD.PACK PO (16:16)
[2020-11-06 17:28] LABS: Glucose Point of Care 321 (65-105)
[2020-11-06] MEDS: ACETAMINOPHEN 500 MG TABLET PO (19:32)
[2020-11-06] MEDS: MIRTAZAPINE 30 MG TABLET PO (20:38)
[2020-11-06] MEDS: ATORVASTATIN 10 MG TABLET PO (20:38)
[2020-11-06] MEDS: MELATONIN 3 MG TABLET PO (20:39)
[2020-11-06 21:00] VITALS: BP 130/68; PULSE 84; RESP 16; TEMP 37; O2SAT 94
[2020-11-06 21:03] LABS: Glucose Point of Care 230 (65-105)
[2020-11-06] MEDS: INSULIN GLARGINE (*BKC) 100 UNITS/ML 80 UNITS SUB-Q (21:08)
[2020-11-07 04:50] LABS: Basophils Percent Auto 0.5 % (0.2-1.2); Eosinophils Absolute Auto 0.5 K/mm3 (0-0.3); Eosinophils Percent Auto 6.5 % (0-4.4); Hematocrit 35.3 % (42.0-52.0); Hemoglobin 11.6 g/dL (14.0-18.0); Immature Granulocyte Absolute 0.05 K/mm3 (0.00-0.031); Immature Granulocyte Percent A 0.7 % (0-0.5); Lymphocytes Absolute Auto 2.08 K/mm3 (0.9-3.2); Lymphocytes Percent Auto 28.3 % (18.3-44.2); Mean Corpuscular HGB Conc 32.9 g/dl (32-36); Mean Corpuscular Hemoglobin 29.9 pg (26-34); Mean Platelet Volume 8.2 fl (7.4-10.4); Monocytes Percent Auto 14.1 % (2.6-8.5); Neutrophils Absolute Auto 3.7 K/mm3 (1.3-6.7); Neutrophils Percent Auto 49.9 % (45.5-73.1); Platelet Count Result 192 k/mm3 (150-375); Red Blood Count 3.88 M/mm3 (4.6-6.20); Red Cell Distribution Width 13.8 % (11.5-14.5); White Blood Count 7.4 K/mm3 (4.5-10.0)
[2020-11-07 04:55] VITALS: BP 142/72; PULSE 75; RESP 16; TEMP 37; O2SAT 95
[2020-11-07 04:59] LABS: Potassium 4.3 mmol/L (3.4-5.0)
[2020-11-07 05:07] LABS: Anion Gap 1 mmol/L (8-16); Blood Urea Nitrogen 13 mg/dL (9-20); CRP 3.5 mg/dL (<1.0); Carbon Dioxide 33 mmol/L (22-30); Chloride 101 mmol/L (98-107); Estimated CRCL calculation 149 ml/min; Estimated Glomerular Filt Rate > 60; Glucose 212 mg/dL (75-110); Sodium 135 mmol/L (137-145)
[2020-11-07 07:08] LABS: Glucose Point of Care 215 (65-105)
[2020-11-07 08:00] VITALS: PULSE 75; RESP 16; O2SAT 95
[2020-11-07] MEDS: INSULIN ASPART (*BKC) 100 UNITS/ML SUB-Q ×3 (08:16→16:59)
[2020-11-07] MEDS: INSULIN ASPART (*BKC) 100 UNITS/ML 35 UNITS SUB-Q ×3 (08:17→17:00)
[2020-11-07] MEDS: GABAPENTIN 300 MG CAPSULE 600 MG PO ×3 (09:27→16:59)
[2020-11-07] MEDS: ESCITALOPRAM OXALATE 10 MG TABLET PO (09:29)
[2020-11-07] MEDS: lisinopriL 10 MG TABLET PO (09:29)
[2020-11-07] MEDS: polyethylene glycoL 3350 17 GM POWD.PACK PO (09:29)
[2020-11-07] MEDS: THERAPEUTIC MULTIVITAMINS/MINERALS TAB (*BKC) 1 TABLET PO (09:29)
[2020-11-07] MEDS: SENNA/DOCUSATE SODIUM TABLET 1 TAB PO (09:30)
[2020-11-07] MEDS: ASPIRIN 81 MG ENTERIC TABLET PO (09:30)
[2020-11-07] MEDS: ESCITALOPRAM OXALATE 5 MG TABLET PO (09:30)
[2020-11-07] MEDS: ASCORBIC ACID 500 MG TABLET PO ×2 (09:30→16:59)
[2020-11-07] MEDS: INSULIN GLARGINE (*BKC) 100 UNITS/ML 15 UNITS SUB-Q (09:37)
[2020-11-07] MEDS: ENOXAPARIN 40 MG/0.4 ML SYRINGE SUB-Q (09:47)
[2020-11-07] MEDS: MENTHOL 10% / METHYL SALICYLATE 15% 57 GM TUBE 1 APPLIC TOPICAL (10:50)
[2020-11-07 11:44] LABS: Glucose Point of Care 244 (65-105)
[2020-11-07] MEDS: SACCHAROMYCES BOULARDII 250 MG CAPSULE PO (12:56)
[2020-11-07] MEDS: DOXYCYCLINE HYCLATE 100 MG TABLET PO (12:56)
--- NOTE | 2020-11-07 13:07 | PM.CNGS ---
Assessment and Plan Assessment and plan (1) Cellulitis and abscess of buttock: Onset Date: ~10/2020 Code(s): L02.31 - Cutaneous abscess of buttock; L03.317 - Cellulitis of buttock Status: Acute Assessment and Plan: I have reviewed the patient's situation. I have examined his wound. I have repacked it. I do not find any undrained pockets in the area of his abscess. I think this should go ahead and heal up with good local wound care including daily packing allowing it to heal from the inside out. He should also continue oral antibiotics which is what is planned. I would agree with the use of the doxycycline. (2) Morbid obesity: Onset Date: Unknown Code(s): E66.01 - Morbid (severe) obesity due to excess calories Status: Acute Assessment and Plan: I encouraged the patient to strictly follow his low calorie diabetic diet and try to lose weight. 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 The physician at the assisted can follow the wound and consult their usual wound care service if things worsen. History of Present Illness Consult details Consult date: 11/07/20 Reason for consult: wound care (Recent staph abscess on right buttock) Requesting physician: Lynnette Guo PA-C Narrative: Wing Veloz is a 64 year old White male with a history of diabetes status post left BKA, hypertension, hyperlipidemia, presented to the emergency room with right buttock pain for 2 days. Patient states he knows the pain about 2 days ago and yesterday it became worse with associated fevers and chills. He showed the nurse's at his assisted who decided to bring him to the emergency room for further evaluation. Upon evaluation the emergency room it appeared the patient had a undrained abscess at the site and this was drained with a small approximately 1 cm incision. Cultures were done at the time and this has returned showing regular Staph aureus. He denies any chest pain, shortness of breath, cough, nausea, vomiting, abdominal pain, diarrhea, constipation, leg swelling, calf pain, dysuria, frequent urination, urinary retention, headache, lightheadedness, dizziness, near-syncope, or any other associated symptoms at that time. Upon admission he had a Normal WBC at 9300, stable normocytic anemia with a hemoglobin of 12, hematocrit 37%, no elevation of neutrophils, normal coag panel, stable electrolytes with a Na at 135, normal renal function, glucose was 181, CRP slightly elevated at 3.2. After the I & D in the ED he was admitted for IV antibiotics for the abscess and some cellulitis. Review of Systems Constitutional: Constitutional: Reports no additional constitutional complaints, Reports fatigue and Denies malaise Comments: Morbidly obese with BMI of 47 Eyes: Eyes: Denies change in vision and Denies loss of vision ENT: Reports No
--- NOTE | 2020-11-07 13:22 | PM.DS ---
DS: Admitting Diagnosis Admitting Diagnosis Admitting Diagnosis: Right buttock pain DS: Discharge Diagnosis Discharge Diagnosis (1) Cellulitis and abscess of buttock: Onset Date: ~10/2020 Code(s): L02.31 - Cutaneous abscess of buttock; L03.317 - Cellulitis of buttock Status: Acute Assessment and Plan: Small abscess with some surrounding cellulitis and warmth on arrival. ER performed an I&D at bedside and cultures were taken. Patient started on IV cefazolin and vancomycin for his history of diabetes. Preliminary report on abscess shows moderate amount of staph aureus. Pending sensitivity results at this time. Patient reports some improvement today after I&D Wound care evaluated the patient and placed orders for the nurse to lightly packed open wound to right buttock with 1.4 and iodoform ribbon rope, cover with an ABD pad and change daily. Stable, no leukocytosis, CRP slightly elevated on arrival and improved today. 11/06/2020: Will discontinue IV cefazolin since culture is growing Staph aureus, pending sensitivities. Continue IV vancomycin. 11/07/2020: Patient feeling well today. Wound appeared to have a slight area of induration so I consulted Surgery, Dr. Breaux who evaluated the patient. He took a look at the wound and further evaluated it and does not believe any further intervention is necessary at this time. Plans to continue with iodoform gauze packing and dressing changes. Continue antiboitics. The patient understands and agrees with the plan. All questions answered. 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 Will start him back on his home insulin regimen. Hemoglobin A1c is 11.4%. Continue home medications. Better diet control for improvement of A1c. (3) Hypertension: Qualifiers: Hypertension type: essential hypertension Qualified Code(s): I10 - Essential (primary) hypertension Code(s): I10 - Essential (primary) hypertension Status: Acute Assessment and Plan: Blood pressure better today, 121/54. Will continue his home medications and continue monitoring BP. (4) TAWANDA (obstructive sleep apnea): Code(s): G47.33 - Obstructive sleep apnea (adult) (pediatric) Status: Acute Assessment and Plan: Will order home CPAP settings. Patient states he no longer has a CPAP machine but is interested in getting another one. DS: Summary Hospital Course Hospital Course: Wing Veloz is a 64 year old male with a history of diabetes status post left BKA, hypertension, hyperlipidemia, presented to the emergency room with right buttock pain for 2 days with associated fevers and chills. Initial vitals showed afebrile, heart rate 95, respiratory rate 18, blood pressure 146/75, oxygen saturation 96% on room air. Normal WBC at 9300, stable normocytic anemia with a hemoglobin of 12, hematocrit 37%, no elevation of neutrophils, normal coag panel, stable at 135, normal renal function, glucose was 181, CRP slightly elevated at 3.2. In the emergency room the patient had an I and D and cultures were taken of his wound to his right buttock. He was admitted for IV antibiotics for abscess and some cellulitis. Wound cultures return positive for Staph aureus with multiple sensitivities. Surgery was consulted to make sure further I&D was not needed at bedside prior to discharge and Dr. Breaux preformed evaluation and procedure and everything looked to be healing properly. [facility] and probiotics. Continue dressing changes daily. The patient understands and agrees with t
[2020-11-07 14:00] VITALS: BP 163/75; PULSE 92; RESP 20; TEMP 36.7; O2SAT 97
[2020-11-07] MEDS: traMADol HCL (*CRX) 50 MG TABLET PO (15:35)
[2020-11-07 16:53] LABS: Glucose Point of Care 239 (65-105)
[2020-11-07 17:38] LABS: SARS-CoV-2 RNA PCR Negative
[2020-11-07] MEDS: ACETAMINOPHEN 500 MG TABLET PO (18:39)
== END 2020-11-07 19:53 | DRG 603 ==
LOC: ANHED 23:06 → ANH3MEDSUR 11-05 01:26 → ANHTRC 11-05 16:03
PROVIDERS: Internal Medicine; Physician Assistant; Admitting Provider Family Medicine; Emergency Provider Emergency Medicine; Visit Provider Internal Medicine
DX: L02.31 Cutaneous abscess of buttock (principal); Z68.42 Body mass index [BMI] 45.0-49.9, adult; A49.01 Methicillin susceptible Staphylococcus aureus infection, unspecified site; E66.01 Morbid (severe) obesity due to excess calories; Z20.822 Contact with and (suspected) exposure to COVID-19; L03.317 Cellulitis of buttock; I10 Essential (primary) hypertension; G47.33 Obstructive sleep apnea (adult) (pediatric); K43.2 Incisional hernia without obstruction or gangrene; E11.51 Type 2 diabetes mellitus with diabetic peripheral angiopathy without gangrene; E78.5 Hyperlipidemia, unspecified; I25.10 Atherosclerotic heart disease of native coronary artery without angina pectoris; B36.9 Superficial mycosis, unspecified; D64.9 Anemia, unspecified; Z89.512 Acquired absence of left leg below knee; Z79.4 Long term (current) use of insulin
CPT/HCPCS: 10061; 36415; 80048; 80053; 80202; 83036; 85025; 85027; 85610; 85730; 86140; 87070; 87147; 87186; 87205; 96365; 96366; 96367; 96372; 96375; 96376; 99285; A9270; C9803; G0378; J0690; J1650; J1815; J2270; J3370; U0003; U0005

== ENCOUNTER 2021-01-07 02:01 | Emergency (ER) | payer MEDICARE, MEDICAID, SELFPAY ==
[2021-01-07] VITALS (7 sets, daily range): BP systolic 138–168; BP diastolic 75–126; PULSE 92–99; RESP 12–19; O2SAT 91–100
--- NOTE | ~2021-01-07 | CT_ITS ---
EXAMINATION: CT abdomen pelvis w con DATE: 01/07/2021 03:16 INDICATION: Left lower abdominal pain. Known hernia. TECHNIQUE: Computed tomography (CT) of the abdomen and pelvis was performed with 100 cc Omnipaque 350 intravenous contrast. The dose-length product was 1788.29 mGy-cm. Automated exposure control and ite rative reconstruction technique were employed. COMPARISON: CT dated 04/14/2020 FINDINGS: Calcified granulomas left lower lobe. There is lower lobe atelectasis/scarring. Heart size normal. No significant pleural or pericardial effusion. Study limited due to exclusion of the left an terior abdominal wall and portions of large left lower abdominal hernia extending outside of the fiel d of view due to patient body habitus. The liver, spleen, pancreas, adrenal glands and kidneys are unremarkable. Nonobstructive bowel gas pa ttern. There is nonobstructive bowel entering the left anterior abdominal wall hernia. Moderate retai maru fecal material in the right colon. Bladder is decompressed. No significant vascular abnormality. No lymphadenopathy. No definite free air or free fluid. There are surgical changes in the anterior ab dominal wall. Moderate lumbar spondylosis. IMPRESSION: 1. No acute abdominal abnormality. 2: Study limited for evaluation of left anterior abdominal wall hernia due to patient body habitus. N o definite obstruction. Reviewed, dictated and finalized at location A. IMPRESSION: 1. No acute abdominal abnormality. 2: Study limited for evaluation of left anterior abdominal wall hernia due to p atient body habitus. No definite obstruction.
--- NOTE | 2021-01-07 02:28 | ED.GENADULT ---
HPI - General Adult General Chief complaint: Abdominal Pain Stated complaint: ABD Time Seen by Provider: 01/07/21 02:10 History of Present Illness HPI narrative: Is a 65-year-old gentleman who presents to emergency department with chief complaint of abdominal pain. Patient reports he has history of a hernia on the left side of his abdomen and states that tonight he started getting nauseated and started having discomfort on the hernia area. Patient reports still reducible. Related Data Home Medications Medication Instructions Recorded Confirmed Therapeutic-M Vitamin/Minerals 1 tablet PO DAILY 11/14/19 11/05/20 acetaminophen [Acetaminophen Extra 500 mg PO Q6H PRN 11/14/19 11/05/20 Strength] ascorbic acid (vitamin C) 500 mg PO BID 11/14/19 11/05/20 ergocalciferol (vitamin D2) 50,000 unit PO WEEKLY 11/14/19 11/05/20 [Vitamin D2] escitalopram oxalate 5 mg PO DAILY 11/14/19 11/05/20 escitalopram oxalate 10 mg PO DAILY 11/14/19 11/05/20 gabapentin 600 mg PO TID 11/14/19 11/05/20 mirtazapine 30 mg PO HS 11/14/19 11/05/20 aspirin [Aspirin Low Dose] 81 mg PO DAILY 12/08/19 11/05/20 atorvastatin 10 mg PO HS 12/08/19 11/05/20 sennosides-docusate sodium 1 tab-cap PO DAILY 04/14/20 11/05/20 [Senexon-S] Biofreeze (menthol) 1 applic TOPICAL BID 04/15/20 11/05/20 sodium chloride [Saline Nasal Mist] 1 spray INTRANASAL Q4H PRN 04/15/20 11/05/20 Lantus U-100 Insulin 15 unit SUBCUT QAM 11/05/20 11/05/20 Lantus U-100 Insulin 80 unit SUBCUT HS 11/05/20 11/05/20 insulin aspart U-100 [Novolog 1 sliding scale dose SUBCUT 11/05/20 11/05/20 U-100 Insulin aspart] USEASDIRECTD insulin aspart U-100 [Novolog 35 unit SUBCUT AC 11/05/20 11/05/20 U-100 Insulin aspart] Allergies Allergy/AdvReac Type Severity Reaction Status Date / Time Penicillins Allergy Unknown Fever Verified 04/14/20 17:55 Review of Systems Review of Systems: Narrative: A 10 system review of systems was completed on the patient and is negative except for what is stated in the HPI. Nursing and ancillary documentation was reviewed. [facility] Past Medical History Medical History CAD (coronary artery disease) Chronic anemia Hypertension Insulin dependent type 2 diabetes mellitus Hemoglobin A1c was 11.6% November 15, 2019. Morbid obesity with BMI of 40.0-44.9, adult TAWANDA (obstructive sleep apnea) Noncompliant with PAP therapy. Peripheral vascular disease Ventral hernia Surgical History Surgical History Status post below-knee amputation of left lower extremity Status post herniorrhaphy Ventral hernia repair x3. Family History Family History Father , at age 69 Diabetes mellitus Family history of alcoholism Mother Diabetes mellitus Sibling Family history of emphysema Other Family history of cardiovascular disease Social History Social History Social History: The patient has been at [facility]. Before that he was living with his mother in [place]. He is on disability. He had 2 daughters, one at the age of 34 from an [place]. He has a lifelong non-smoker. He was previously a heavy drinker, but has abstained since moving to the rehab center. He denies illicit drug use. Patient wishes to be a full code. His [id number] is his mother, Nicolle Veloz. Smoking status: Never smoker Second hand tobacco smoke exposure: No Alcohol intake: never Substance use: never Substance use type: does not use Additional occupation/education comments: He is on disability Gender identity (if verbalized by the patient): Male Spiritual care concerns: No Agree to blood products: Yes Exam Narrative: Exam Narrative: GENERAL: Well-appearing
[2021-01-07 02:38] LABS: Basophils Percent Auto 0.3 % (0.2-1.2); Eosinophils Absolute Auto 0.4 K/mm3 (0-0.3); Hematocrit 38.5 % (42.0-52.0); Hemoglobin 12.3 g/dL (14.0-18.0); Immature Granulocyte Absolute 0.05 K/mm3 (0.00-0.031); Immature Granulocyte Percent A 0.6 % (0-0.5); Lymphocytes Absolute Auto 2.04 K/mm3 (0.9-3.2); Lymphocytes Percent Auto 23.4 % (18.3-44.2); Mean Corpuscular HGB Conc 31.9 g/dl (32-36); Mean Corpuscular Volume 93.9 fl (80-100); Mean Platelet Volume 8.2 fl (7.4-10.4); Monocytes Absolute Auto 1.1 K/mm3 (0.1-0.6); Monocytes Percent Auto 12.3 % (2.6-8.5); Neutrophils Absolute Auto 5.1 K/mm3 (1.3-6.7); Neutrophils Percent Auto 58.4 % (45.5-73.1); Platelet Count Result 177 k/mm3 (150-375); Red Cell Distribution Width 13.8 % (11.5-14.5); White Blood Count 8.7 K/mm3 (4.5-10.0)
[2021-01-07 02:50] LABS: Alanine Aminotransferase 20 U/L (4-50); Albumin Level 3.5 g/dL (3.5-5.1); Alkaline Phosphatase 72 U/L (38-126); Anion Gap 4 mmol/L (8-16); Aspartate Amino Transferase 26 U/L (17-59); Bilirubin,Total 0.2 mg/dL (0.2-1.3); Blood Urea Nitrogen 19 mg/dL (9-20); Calcium 8.8 mg/dL (8.4-10.2); Carbon Dioxide 32 mmol/L (22-30); Chloride 101 mmol/L (98-107); Estimated CRCL calculation 122 ml/min; Estimated Glomerular Filt Rate > 60; Glucose 161 mg/dL (75-110); Lactic Acid Reflex 1.3 mmol/L (0.7-2.1); Lipase 30 U/L (23-300); Potassium 4.3 mmol/L (3.4-5.0); Sodium 137 mmol/L (137-145)
[2021-01-07] MEDS: SODIUM CHLORIDE 0.9% IV 1,000 ML 999 ML IV CONT (03:00)
[2021-01-07 03:20] LABS: Add Urine Microscopic? YES; Appearance Urine Clear (Clear); Bilirubin Urine Negative (Negative); Blood Urine Negative (Negative); Color Urine Yellow (Yellow); Glucose Urine UA Negative (Negative); Ketones Urine Negative (Negative); Leukocyte Esterase Ur Negative LEU/UL (Negative); Mucus Urine Rare /lpf; Nitrate Urine Negative (Negative); Protein Urine Negative (Negative); RBC Urine 0-2 /hpf (0-2); Specific Grav Ur 1.013 (1.001-1.035); Squamous Epithelial Cell Urine Rare /hpf (Few); Urobilinogen Urine Negative mg/dL (<2.0)
[2021-01-07] MEDS: MORPHINE SULFATE (*CRX) 4 MG/ML INJ IV PUSH (03:22)
[2021-01-07] MEDS: ONDANSETRON INJ 4 MG/2 ML VIAL IV PUSH (03:22)
--- NOTE | 2021-01-07 05:00 | PC.NURSE ---
Pat at [facility] updated that patient will be discharged ETA dependant on EMS schedule
--- NOTE | 2021-01-07 05:30 | PC.NURSE ---
0800 is time given for last picker by Schaffer
--- NOTE | 2021-01-07 07:20 | PC.NURSE ---
Assumed care of pt at this time, report taken from Izabela HORN. Pt resting in bed, drink offered, VSS.
== END 2021-01-07 07:51 ==
PROVIDERS: Emergency Provider Emergency Medicine
DX: R10.84 Generalized abdominal pain (principal); R11.0 Nausea; I25.10 Atherosclerotic heart disease of native coronary artery without angina pectoris; I10 Essential (primary) hypertension; E11.9 Type 2 diabetes mellitus without complications; Z79.4 Long term (current) use of insulin
CPT/HCPCS: 36415; 51701; 74177; 80053; 81001; 83605; 83690; 85025; 96361; 96374; 96375; 99284; J2270; J2405; J7030; Q9967

== ENCOUNTER 2021-01-14 15:45 | Emergency (ER) | payer MEDICARE, MEDICAID, SELFPAY ==
--- NOTE | ~2021-01-14 | XR_ITS ---
EXAMINATION: XR chest 2V DATE: 01/14/2021 18:10 INDICATION: Medial chest pain. TECHNIQUE: Frontal and lateral views of the chest were obtained. COMPARISON: Chest single view 08/05/2020, CT abdomen and pelvis 01/07/2021 FINDINGS: There is mild atelectasis in the mid and lower lung zones. Calcified left lung nodules and calcified left hilar lymph nodes are consistent with old granulomatous disease. No pleural effusion o r pneumothorax. There is prominent extrapleural fat on the left. The heart size is normal. Mediastina l lipomatosis is noted. There are changes of anterior fusion procedure in cervical spine. IMPRESSION: 1. Mild atelectasis in the mid and lower lung zones. Reviewed, dictated and finalized at location A.
[2021-01-14 16:00] VITALS: BP 149/73; PULSE 89; RESP 17; TEMP 36.6; O2SAT 95
--- NOTE | 2021-01-14 16:04 | ECG_ITS ---
Measurements Intervals [place] Rate: 88 P: 85 NV: 160 QRS: 47 QRSD: 105 T: 75 QT: 372 QTc: 451 Interpretive Statements SINUS RHYTHM LOW QRS VOLTAGE IN PRECORDIAL LEADS BORDERLINE ECG Electronically Signed On 01-14-2021 16:18:30 CDT by Osmin Black D.O.
[2021-01-14 16:38] LABS: Basophils Percent Auto 0.3 % (0.2-1.2); Eosinophils Absolute Auto 0.2 K/mm3 (0-0.3); Eosinophils Percent Auto 2.3 % (0-4.4); Hematocrit 40.8 % (42.0-52.0); Immature Granulocyte Absolute 0.05 K/mm3 (0.00-0.031); Immature Granulocyte Percent A 0.5 % (0-0.5); Lymphocytes Absolute Auto 1.56 K/mm3 (0.9-3.2); Lymphocytes Percent Auto 16.3 % (18.3-44.2); Mean Corpuscular HGB Conc 31.9 g/dl (32-36); Mean Corpuscular Hemoglobin 29.7 pg (26-34); Mean Corpuscular Volume 93.2 fl (80-100); Mean Platelet Volume 8.1 fl (7.4-10.4); Monocytes Absolute Auto 1.2 K/mm3 (0.1-0.6); Monocytes Percent Auto 12.7 % (2.6-8.5); Neutrophils Absolute Auto 6.5 K/mm3 (1.3-6.7); Neutrophils Percent Auto 67.9 % (45.5-73.1); Platelet Count Result 217 k/mm3 (150-375); Red Blood Count 4.38 M/mm3 (4.6-6.20); Red Cell Distribution Width 14.1 % (11.5-14.5); White Blood Count 9.6 K/mm3 (4.5-10.0)
[2021-01-14 16:47] LABS: Prothrombin Time 13.4 Seconds (11.1-14.7)
[2021-01-14 16:48] LABS: Partial Thromboplastin Time 25.2 SECONDS (22.3-36.8)
[2021-01-14 16:50] LABS: Anion Gap 4 mmol/L (8-16); Blood Urea Nitrogen 18 mg/dL (9-20); Calcium 9.3 mg/dL (8.4-10.2); Carbon Dioxide 34 mmol/L (22-30); Chloride 100 mmol/L (98-107); Estimated CRCL calculation 75 ml/min; Estimated Glomerular Filt Rate > 60; Glucose 90 mg/dL (75-110); Potassium 4.4 mmol/L (3.4-5.0); Sodium 138 mmol/L (137-145)
[2021-01-14 17:02] LABS: Troponin I < 0.012 ng/mL (0.000-0.034)
[2021-01-14 17:49] VITALS: PULSE 98; O2SAT 100
--- NOTE | 2021-01-14 18:04 | ED.CHESTPAIN ---
HPI - Chest Pain General Chief Complaint: Chest Pain Stated Complaint: cp Time Seen by Provider: 01/14/21 17:59 Source: patient Mode of arrival: EMS Limitations: no limitations History of Present Illness HPI narrative: 65-year-old male Patient states that he was watching TV about 2 hours before his arrival here and started having sharp chest pains He did not have shortness of breath diaphoresis or nausea with them, he did not notice anything that initiated the symptoms were made them better or worse He has little bit of a cough which is nonproductive no fever He has a left-sided ventral abdominal hernia and mentions discomfort from it apparently virtually every time he comes to the hospital, but given his size and comorbidities there does not seem to be any enthusiasm to address it surgically Related Data Home Medications Medication Instructions Recorded Confirmed Therapeutic-M Vitamin/Minerals 1 tablet PO DAILY 11/14/19 11/05/20 acetaminophen [Acetaminophen Extra 500 mg PO Q6H PRN 11/14/19 11/05/20 Strength] ascorbic acid (vitamin C) 500 mg PO BID 11/14/19 11/05/20 ergocalciferol (vitamin D2) 50,000 unit PO WEEKLY 11/14/19 11/05/20 [Vitamin D2] escitalopram oxalate 5 mg PO DAILY 11/14/19 11/05/20 escitalopram oxalate 10 mg PO DAILY 11/14/19 11/05/20 gabapentin 600 mg PO TID 11/14/19 11/05/20 mirtazapine 30 mg PO HS 11/14/19 11/05/20 aspirin [Aspirin Low Dose] 81 mg PO DAILY 12/08/19 11/05/20 atorvastatin 10 mg PO HS 12/08/19 11/05/20 sennosides-docusate sodium 1 tab-cap PO DAILY 04/14/20 11/05/20 [Senexon-S] Biofreeze (menthol) 1 applic TOPICAL BID 04/15/20 11/05/20 sodium chloride [Saline Nasal Mist] 1 spray INTRANASAL Q4H PRN 04/15/20 11/05/20 Lantus U-100 Insulin 15 unit SUBCUT QAM 11/05/20 11/05/20 Lantus U-100 Insulin 80 unit SUBCUT HS 11/05/20 11/05/20 insulin aspart U-100 [Novolog 1 sliding scale dose SUBCUT 11/05/20 11/05/20 U-100 Insulin aspart] USEASDIRECTD insulin aspart U-100 [Novolog 35 unit SUBCUT AC 11/05/20 11/05/20 U-100 Insulin aspart] Allergies Allergy/AdvReac Type Severity Reaction Status Date / Time Penicillins Allergy Unknown Fever Verified 04/14/20 17:55 Review of Systems Review of Systems: All systems reviewed & are unremarkable except as noted in HPI and below Constitutional: Constitutional: Denies chills, Reports fatigue, Denies fever(s), Denies headache(s) and Reports weakness Eyes: Eyes: Reports no additional eye complaints and Denies change in vision ENT: Denies headache(s), Denies epistaxis, Denies nasal congestion and Denies sore throat Cardiovascular: Cardiovascular: Reports chest pain, Denies rapid heart rate, Denies leg edema, Denies radiating jaw, neck or arm pain, Denies palpitations and Denies dyspnea Respiratory: Respiratory: Reports cough, Denies dyspnea and Denies wheezing Gastrointestinal: Gastrointestinal: Reports abdominal pain, Denies diarrhea, Denies nausea and Denies vomiting Comments: Change in stool caliber Genitourinary: Genitourinary: Denies hematuria, Denies dysuria and Denies urinary frequency Musculoskeletal: Musculoskeletal: Reports myalgias, Denies deformity, Reports arthralgias, Denies joint swelling, Denies muscle weakness and Denies numbness Integumentary/Breasts: Skin/Breast: Reports rash and Denies wounds Neurologic: Denies headache(s), Denies focal weakness, Denies numbness and Denies weakness Psychiatric: Psychiatric: Reports no additional psychiatric complaints Endocrine: Endocrine: Denies palpitations [facility] Past Medical History Medical History CAD (coronary artery disease) Chronic anemia Hypertension Insulin dependent type 2 diabetes mellitus Hemoglobin A1c was 11.6% November 15, 2019. Morbid obesity with BMI of 40.0-44.9, adult TAWANDA (obstructive sleep apnea) Noncompliant with PAP therapy. Peripheral vascular disease Ventral hernia Surgical History Surgi
--- NOTE | 2021-01-14 18:05 | PC.NURSE ---
Pt to Rm 3 via w/c from waiting room. Air mattress pad placed on bed to ease with moving patient. Pt placed on daniel and moved with assist x5 persons to stretcher.
[2021-01-14] MEDS: ASPIRIN 81 MG CHEWABLE TABLET 324 MG PO (18:30)
--- NOTE | 2021-01-14 19:00 | PC.NURSE ---
Attempt to initiate IV x3 unsuccessful. Pt requests something to eat. Made aware of NPO status until determination made regarding hernia concerns.
[2021-01-14 20:25] LABS: Troponin I < 0.012 ng/mL (0.000-0.034)
[2021-01-14 20:30] VITALS: BP 159/80; PULSE 93; RESP 20; O2SAT 94
--- NOTE | 2021-01-14 22:25 | PC.NURSE ---
called [facility] to request transport. ETA [id number]
--- NOTE | 2021-01-14 22:31 | PC.NURSE ---
update given to Elyse HORN at [facility]. Pt will be transported back to [place] by EMS approx [id number].
[2021-01-14 23:00] VITALS: BP 132/78; PULSE 72; RESP 20; O2SAT 99
== END 2021-01-14 23:00 ==
PROVIDERS: Emergency Medicine; Emergency Provider Emergency Medicine
DX: R07.9 Chest pain, unspecified (principal); K43.9 Ventral hernia without obstruction or gangrene; I25.10 Atherosclerotic heart disease of native coronary artery without angina pectoris; D64.9 Anemia, unspecified; I10 Essential (primary) hypertension; E11.9 Type 2 diabetes mellitus without complications; Z79.4 Long term (current) use of insulin
CPT/HCPCS: 36415; 71046; 80048; 84484; 85025; 85610; 85730; 93005; 99284; A9270

== ENCOUNTER 2021-03-03 11:46 | Inpatient (IN) | payer MEDICARE, MEDICAID, SELFPAY ==
[2021-03-03] VITALS (9 sets, daily range): BP systolic 117–171; BP diastolic 66–88; PULSE 102–125; RESP 19–23; TEMP 36.8–38.3; O2SAT 90–100; BMI 51.0
--- NOTE | ~2021-03-03 | US_ITS ---
EXAMINATION: US venous doppler LE EXAM DATE: 03/04/2021 12:00 INDICATION: Edema, calf pain . TECHNIQUE: Multiple grayscale, color flow and Doppler images of the right lower extremity deep venous system were obtained and reviewed. Comparison is made to prior examination from 12/09/2019. FINDINGS: The right common femoral, femoral and profunda veins demonstrate normal color flow, respira tory variation, augmentation and compressibility. Compressibility, color flow confirmed within the r ight popliteal, posterior tibial, peroneal, and greater saphenous veins. IMPRESSION: 1. No right lower extremity deep venous thrombosis. Reviewed, dictated and finalized at location A.
--- NOTE | ~2021-03-03 | CT_ITS ---
EXAMINATION: CT abdomen pelvis w con EXAM DATE: 03/03/2021 13:33 INDICATION: Lower abdominal pain, hernia. Nausea vomiting and diarrhea. TECHNIQUE: Spiral CT of the abdomen and pelvis was performed following intravenous injection of 100 m L Omnipaque 350. Axial, coronal and sagittal images of the abdomen and pelvis were reviewed. The do se-length product (DLP) for this examination was 2228.21 mGy-cm. The exposure was tailored according to patient size (auto mA exposure control), and iterative reconstruction (ASIR) was used as addition al dose reduction technique. Comparison is made to prior examination from 01/07/2021. FINDINGS: There may be a supraumbilical abdominal wall hernia repair. There is an infraumbilical left lower quadrant abdominal wall hernia containing nonobstructed descending colon and ileum. Similar ap pearance on prior study. There is hepatic steatosis without suspicious focal lesion identified. Sple en, adrenal glands, pancreas are unremarkable. Gallbladder is unremarkable. No biliary obstruction. Portal and splenic veins are patent. Kidneys enhance symmetrically. There is no hydronephrosis. The prostate is unremarkable. Small left inguinal fat-containing hernia. The bladder is unremarkabl e. There is no retroperitoneal or pelvic lymphadenopathy. There are no findings to suggest appendicitis. Small bowel anastomosis site. There is colonic fluid , correlate for diarrhea. No free intraperitoneal gas. The heart is normal in size. There are no pericardial or pleural effusions. Ill-defined left lower lobe reticulonodular airspace disease new compared to prior study, appearance most consistent with acute pneumonitis, probably infectious etiol ogy. This probably is below x-ray threshold for visualization. Right lung bases clear. There is mild emphysema. There are no osteoblastic or osteolytic lesions identified. IMPRESSION: 1. Developing left basilar reticulonodular opacities probably pneumonia. 2. Large left lower quadrant abdominal wall hernia containing small and large bowel. No obstruction. 3. Colonic fluid, correlate for diarrhea. 4. Hepatic steatosis. Reviewed, dictated and finalized at location A.
--- NOTE | 2021-03-03 12:09 | ED.NAVMDI ---
HPI - Nausea/Vomiting/Diarrhea General Chief complaint: Nausea/Vomiting/Diarrhea Stated complaint: N/V/D Time Seen by Provider: 03/03/21 12:07 History of Present Illness HPI Narrative: 65 yo morbidly obese male w/ multiple medical problems including DM, htn, depression, left bka, multiple abdominal hernias presents to the ED for nausea and vomiting. He reports three episodes of vomiting since 0600 today. Nonbilious, non bloody. He also reports stool incontinence with loose stools. This is associated with lower abdominal pain, especially in the LLQ. He reports that he has a chronic hernia there. He has had 2 previous hernias repaired in other locations. He reports that the pain is currently 9/10. Related Data Home Medications Medication Instructions Recorded Confirmed Therapeutic-M Vitamin/Minerals 1 tablet PO DAILY 11/14/19 03/03/21 acetaminophen [Acetaminophen Extra 500 mg PO Q6H PRN 11/14/19 03/03/21 Strength] ascorbic acid (vitamin C) 500 mg PO BID 11/14/19 03/03/21 ergocalciferol (vitamin D2) 50,000 unit PO WEEKLY 11/14/19 03/03/21 [Vitamin D2] escitalopram oxalate 5 mg PO DAILY 11/14/19 03/03/21 escitalopram oxalate 10 mg PO DAILY 11/14/19 03/03/21 gabapentin 600 mg PO TID 11/14/19 03/03/21 mirtazapine 30 mg PO HS 11/14/19 03/03/21 aspirin [Aspirin Low Dose] 81 mg PO DAILY 12/08/19 03/03/21 atorvastatin 10 mg PO HS 12/08/19 03/03/21 sennosides-docusate sodium 1 tab-cap PO DAILY 04/14/20 03/03/21 [Senexon-S] Biofreeze (menthol) 1 applic TOPICAL BID 04/15/20 03/03/21 sodium chloride [Saline Nasal Mist] 1 spray INTRANASAL Q4H PRN 04/15/20 03/03/21 Lantus U-100 Insulin 20 unit SUBCUT QAM 11/05/20 03/03/21 Lantus U-100 Insulin 80 unit SUBCUT HS 11/05/20 03/03/21 insulin aspart U-100 [Novolog 1 sliding scale dose SUBCUT 11/05/20 03/03/21 U-100 Insulin aspart] USEASDIRECTD insulin aspart U-100 [Novolog 35 unit SUBCUT AC 11/05/20 03/03/21 U-100 Insulin aspart] benzonatate 100 mg PO TID PRN 03/03/21 03/03/21 buspirone 5 mg PO TID 03/03/21 03/03/21 liraglutide [Victoza 2-Tushar] 1.8 mg SUBCUT DAILY 03/03/21 03/03/21 metformin 1,000 mg PO BID 03/03/21 03/03/21 mupirocin 1 applic TOPICAL BID 03/03/21 03/03/21 tramadol 50 mg PO Q6H PRN 03/03/21 03/03/21 trazodone 150 mg PO HS PRN 03/03/21 03/03/21 Allergies Allergy/AdvReac Type Severity Reaction Status Date / Time Penicillins Allergy Unknown Fever Verified 03/03/21 18:27 Review of Systems Review of Systems: All systems reviewed & are unremarkable except as noted in HPI and below Constitutional: Constitutional: Denies chills and Denies fever(s) Eyes: Eyes: Reports no additional eye complaints ENT: Reports system reviewed and no additional complaints, except as documented Cardiovascular: Cardiovascular: Denies chest pain Respiratory: Respiratory: Denies dyspnea Gastrointestinal: Gastrointestinal: Reports as per HPI Genitourinary: Genitourinary: Reports no additional male genitourinary complaints Musculoskeletal: Musculoskeletal: Reports no additional musculoskeletal complaints Integumentary/Breasts: Comments: being treated for RLE cellulitis Neurologic: Reports system reviewed and no additional complaints, except as documented Endocrine: Comments: Reports glucose usually in the 200s [facility] Past Medical History Medical History (Updated 03/04/21 @ 19:25 by Erik Mckinney MD) Chronic anemia Chronic stasis dermatitis Coronary artery disease Depression with anxiety History of deep venous thrombosis Hypertension Insulin dependent type 2 diabetes mellitus Hemoglobin A1c 9.2 Obstructive sleep apnea Noncompliant with CPAP. Peripheral vascular disease Ventral hernia Chronic large left lower quadrant ventral hernia Surgical History Surgical History History of tonsillectomy Status post below-knee amputation of left lower extremity Status post herniorrhaphy Ventral hernia repair x3. Family Hi
[2021-03-03 12:51] LABS: Basophils Percent Auto 0.3 % (0.2-1.2); Eosinophils Absolute Auto 0.1 K/mm3 (0-0.3); Hemoglobin 13.2 g/dL (14.0-18.0); Immature Granulocyte Absolute 0.07 K/mm3 (0.00-0.031); Immature Granulocyte Percent A 0.7 % (0-0.5); Lymphocytes Absolute Auto 0.63 K/mm3 (0.9-3.2); Lymphocytes Percent Auto 6.2 % (18.3-44.2); Mean Corpuscular HGB Conc 31.4 g/dl (32-36); Mean Corpuscular Hemoglobin 29.3 pg (26-34); Mean Corpuscular Volume 93.3 fl (80-100); Mean Platelet Volume 8.2 fl (7.4-10.4); Monocytes Absolute Auto 0.7 K/mm3 (0.1-0.6); Monocytes Percent Auto 6.7 % (2.6-8.5); Neutrophils Absolute Auto 8.6 K/mm3 (1.3-6.7); Neutrophils Percent Auto 85.1 % (45.5-73.1); Platelet Count Result 228 k/mm3 (150-375); Red Cell Distribution Width 14.1 % (11.5-14.5); White Blood Count 10.1 K/mm3 (4.5-10.0)
[2021-03-03] MEDS: fentaNYL CITRATE INJ (*CRX) 100 MCG/2 ML VIAL 50 MCG IV PUSH (12:58)
[2021-03-03] MEDS: ONDANSETRON INJ 4 MG/2 ML VIAL IV PUSH (12:59)
[2021-03-03 13:09] LABS: Alanine Aminotransferase 20 U/L (4-50); Albumin Level 3.6 g/dL (3.5-5.1); Alkaline Phosphatase 84 U/L (38-126); Anion Gap 2 mmol/L (8-16); Aspartate Amino Transferase 33 U/L (17-59); Bilirubin,Total 0.3 mg/dL (0.2-1.3); Blood Urea Nitrogen 22 mg/dL (9-20); Calcium 8.5 mg/dL (8.4-10.2); Carbon Dioxide 32 mmol/L (22-30); Chloride 102 mmol/L (98-107); Estimated CRCL calculation 115 ml/min; Estimated Glomerular Filt Rate > 60; Glucose 229 mg/dL (75-110); Lipase 57 U/L (23-300); Potassium 5.2 mmol/L (3.4-5.0); Sodium 136 mmol/L (137-145)
[2021-03-03 13:14] LABS: Add Urine Microscopic? YES; Appearance Urine Clear (Clear); Bilirubin Urine Negative (Negative); Blood Urine Negative (Negative); Color Urine Yellow (Yellow); Glucose Urine UA 1+ mg/dL (Negative); Ketones Urine Negative (Negative); Leukocyte Esterase Ur Negative LEU/UL (Negative); Mucus Urine Rare /lpf; Nitrate Urine Negative (Negative); Protein Urine 1+ mg/dL (Negative); Specific Grav Ur 1.021 (1.001-1.035); Squamous Epithelial Cell Urine Occasional /hpf (Few); Urobilinogen Urine Negative mg/dL (<2.0); WBC Urine 0-3 /hpf
--- NOTE | 2021-03-03 16:04 | PC.NURSE ---
2 attempts to obtain pts blood cultures. Lab called. Informed Charge nurse of this.
--- NOTE | 2021-03-03 16:55 | PC.NURSE ---
Called to give report and was told that receiving nurse had walked to pt down to ED.
--- NOTE | 2021-03-03 18:13 | ADMGEN ---
This patient, Wing Veloz, was admitted to Medical Room 344-01. Patient/family oriented to hospital policies and general routines including ID bracelet, bed and alarms, visiting hours, pain management, procedures, bathroom and other care routines, personal items, smoking policy, room service/diet, and visiting hours. Information on how to activate the Rapid Response Team has been discussed. Patient/Family are encouraged to report perceived risks to care and to ask questions if they do not understand what they are told or what they should do.
[2021-03-03 18:38] LABS: Glucose Point of Care 220 mg/dl (65-105)
--- NOTE | 2021-03-03 19:00 | PM.IMHP ---
H&P: HPI History of Present Illness Date/Time: 03/03/21 19:00 Chief Complaint: Nausea, vomiting, diarrhea. Narrative: This is a 65 year old male with multiple medical problems including coronary artery disease, hypertension, sleep apnea, morbid obesity, insulin-dependent diabetes and multiple other medical problems who presented to the emergency department earlier this evening via EMS from [facility] for evaluation of nausea, vomiting, and diarrhea. He felt fine when he went to bed last night and this morning he was wakened from sleep with nausea and vomiting. Shortly thereafter he began passing a large volume of loose stools to the point where he was incontinent. Additionally he complains of pain in his left mid and lower quadrant at the site of a large ventral hernia and he reports that has been giving him increasing discomfort recently. CT of the abdomen and pelvis show developing left basilar reticular nodule opacities, probably pneumonia, colonic fluid, and a large left lower quadrant abdominal wall hernia containing small and large bowel without evidence of obstruction. He has not had a fever but does report chills. No history of C diff. He denies sick contacts. No hematemesis, melena, or hematochezia. He denies dysphagia and concerns for aspiration. He has not had cough, sinus congestion, rhinorrhea, otalgia, or odynophagia. He had COVID-19 last year and has been vaccinated for the same. At the time my evaluation he feels a bit better after receiving IV fluids. Of note he reportedly has been on antibiotics for nearly 1 month for a chronic right lower leg cellulitis. Review of Systems Review of Systems: Narrative: Twelve systems were reviewed with pertinent positives and negatives as per HPI. No cold or flu symptoms. He denies chest pain, pleuritic pain, palpitations, and shortness of breath. He has chronic right lower extremity edema and that is unchanged. No dysuria. Except as documented, all other systems were reviewed and are negative. [facility] Past Medical History Medical History (Updated 03/03/21 @ 20:24 by Melonie Levi PA-C) Chronic anemia Chronic stasis dermatitis Coronary artery disease Depression with anxiety History of deep venous thrombosis Hypertension Insulin dependent type 2 diabetes mellitus Hemoglobin A1c was 11.6% November 15, 2019. Obstructive sleep apnea Noncompliant with CPAP. Peripheral vascular disease Ventral hernia Large left-sided ventral hernia. Surgical History Surgical History (Updated 03/03/21 @ 20:15 by Melonie Levi PA-C) History of tonsillectomy Status post below-knee amputation of left lower extremity Status post herniorrhaphy Ventral hernia repair x3. Family History Family History Father , at age 69 Diabetes mellitus Family history of alcoholism Mother Diabetes mellitus Sibling Family history of emphysema Other Family history of cardiovascular disease Social History Social History (Updated 03/03/21 @ 20:17 by Melonie Levi PA-C) Social History: The patient has been at [facility] for several years. Before that he was living with his mother in [place]. He is on disability. He had 2 daughters, one at the age of 34 from an [place]. He is a lifelong non-smoker. A former heavy drinker though he has abstained since moving to the [facility]. He denies illicit drug use. Patient wishes to be a full code. His [id number] is his mother, Nicolle Veloz. Drinks per week: 50 Meds Home Medications and Allergies Home Medications Medication Instructions Recorded Confirmed Type Therapeutic-M Vitamin/Minerals 1 tablet PO DAILY 11/14/19 03/03/21 History acetaminophen [Acetaminophen Extra 500 mg PO Q6H PRN 11/14/19 03/03/21 History Strength] ascorbic acid (vitamin C) 500 mg PO BID 11/14/19 05
[2021-03-03 20:57] LABS: Anion Gap 2 mmol/L (8-16); Blood Urea Nitrogen 20 mg/dL (9-20); Calcium 8.5 mg/dL (8.4-10.2); Carbon Dioxide 31 mmol/L (22-30); Chloride 103 mmol/L (98-107); Estimated CRCL calculation 122 ml/min; Estimated Glomerular Filt Rate > 60; Glucose 228 mg/dL (75-110); Potassium 4.8 mmol/L (3.4-5.0); Sodium 136 mmol/L (137-145)
[2021-03-03] MEDS: ACETAMINOPHEN 500 MG TABLET PO (21:00)
[2021-03-03 21:22] LABS: Hemoglobin A1C 9.2 % (<5.7)
[2021-03-03 21:42] LABS: Glucose Point of Care 225 mg/dl (65-105)
[2021-03-03] MEDS: ATORVASTATIN 10 MG TABLET PO (22:11)
[2021-03-03] MEDS: MELATONIN 3 MG TABLET PO (22:12)
[2021-03-03] MEDS: MIRTAZAPINE 30 MG TABLET PO (22:12)
[2021-03-03] MEDS: ASCORBIC ACID 500 MG TABLET PO (22:12)
[2021-03-03] MEDS: traMADol HCL (*CRX) 50 MG TABLET PO (22:12)
[2021-03-03] MEDS: INSULIN GLARGINE (*BKC) 100 UNITS/ML 80 UNITS SUB-Q (22:13)
[2021-03-03] MEDS: ENOXAPARIN 40 MG/0.4 ML SYRINGE SUB-Q (22:13)
[2021-03-03] MEDS: SODIUM CHLORIDE 0.9% IV 1,000 ML 100 ML IV CONT (22:14)
[2021-03-04] VITALS (8 sets, daily range): BP systolic 124–134; BP diastolic 60–68; PULSE 88–111; RESP 16–19; TEMP 36.2–36.6; O2SAT 94–98
[2021-03-04 06:00] LABS: Hematocrit 35.3 % (42.0-52.0); Hemoglobin 10.9 g/dL (14.0-18.0); Mean Corpuscular HGB Conc 30.9 g/dl (32-36); Mean Corpuscular Volume 93.9 fl (80-100); Mean Platelet Volume 8.1 fl (7.4-10.4); Platelet Count Result 205 k/mm3 (150-375); Red Blood Count 3.76 M/mm3 (4.6-6.20); Red Cell Distribution Width 14.1 % (11.5-14.5); White Blood Count 6.5 K/mm3 (4.5-10.0)
[2021-03-04 06:12] LABS: Anion Gap 3 mmol/L (8-16); Blood Urea Nitrogen 25 mg/dL (9-20); CRP 6.3 mg/dL (<1.0); Carbon Dioxide 31 mmol/L (22-30); Chloride 103 mmol/L (98-107); Estimated CRCL calculation 101 ml/min; Estimated Glomerular Filt Rate > 60; Glucose 168 mg/dL (75-110); Potassium 4.4 mmol/L (3.4-5.0); Sodium 137 mmol/L (137-145)
[2021-03-04 07:58] LABS: Glucose Point of Care 152 mg/dl (65-105)
[2021-03-04] MEDS: GABAPENTIN 300 MG CAPSULE 600 MG PO ×3 (08:30→17:18)
[2021-03-04] MEDS: THERAPEUTIC MULTIVITAMINS/MINERALS TAB (*BKC) 1 TABLET PO (08:30)
[2021-03-04] MEDS: ASPIRIN 81 MG ENTERIC TABLET PO (08:30)
[2021-03-04] MEDS: ESCITALOPRAM OXALATE 5 MG TABLET PO (08:30)
[2021-03-04] MEDS: ASCORBIC ACID 500 MG TABLET PO ×2 (08:30→21:44)
[2021-03-04] MEDS: ESCITALOPRAM OXALATE 10 MG TABLET PO (08:30)
[2021-03-04] MEDS: busPIRone HCL 5 MG TABLET PO ×3 (08:30→17:18)
[2021-03-04] MEDS: SENNA/DOCUSATE SODIUM TABLET 1 TAB PO (08:31)
[2021-03-04] MEDS: lisinopriL 10 MG TABLET PO (08:31)
[2021-03-04] MEDS: MENTHOL 10% / METHYL SALICYLATE 15% 57 GM TUBE 1 APPLIC TOPICAL ×2 (08:35→17:18)
[2021-03-04] MEDS: MUPIROCIN 2% OINT 22 GM TUBE 1 APPLIC TOPICAL (08:36)
[2021-03-04] MEDS: INSULIN GLARGINE (*BKC) 100 UNITS/ML 20 UNITS SUB-Q (08:37)
[2021-03-04 12:31] LABS: Glucose Point of Care 224 mg/dl (65-105)
[2021-03-04] MEDS: INSULIN ASPART (*BKC) 100 UNITS/ML SUB-Q ×2 (12:49→17:15)
--- NOTE | 2021-03-04 12:54 | PM.CNGS ---
Assessment and Plan Assessment and plan (1) Recurrent ventral incisional hernia: Code(s): K43.2 - Incisional hernia without obstruction or gangrene Status: Acute Assessment and Plan: The patient has a large recurrent ventral incisional hernia in the left lower abdomen. This is a chronic issue for the patient and it has been symptomatic for many years. He has been evaluated as an outpatient by our service and referred to a surgeon at [place] to discuss having an elective repair done after optimizing his overall health for surgery. This would be a very complex surgery considering his loss of domain, previous ventral hernia repairs, and his co-morbidities. CT scan of the abdomen and pelvis was reviewed from this admission and last year. The hernia appears nearly unchanged and contains non-obstructed small and large bowel. He has been moving his bowels and tolerating a diet prior to his acute symptoms starting yesterday that seem to be related to the gastroenteritis. He has no evidence of strangulation or obstruction, and does not have an indication for urgent repair. Therefore, we would recommend that he is treated for his other acute medical issues and follow-up with Dr. Lundy at [place] after discharge to discuss proceeding with surgery as an outpatient once medically optimized. In the meantime, I will order another abdominal binder for the patient so he will be able to take this with him on discharge. I encouraged him again to work towards further weight loss and glycemic control after discharge as well. Thank you for allowing us to see the patient in consultation. (2) Morbid obesity: Onset Date: Unknown Code(s): E66.01 - Morbid (severe) obesity due to excess calories Status: Acute Assessment and Plan: Reportedly the patient has worked on weight loss over the past 3 months and is doing well with this. He will need to continue to adhere to healthy lifestyle changes for weight loss prior to a repair. This increases his risks of repair and recurrence. See plan above. 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 I discussed the importance of monitoring his glucose (which they do at [facility] per the patient) and what a goal glucose range would be to optimize his health prior to surgery. He needs to work on better glycemic control and adhere to a diabetic diet. (4) Pneumonia: Qualifiers: Laterality: bilateral Lung location: lower lobe of lung Pneumonia type: due to unspecified organism Qualified Code(s): J18.9 - Pneumonia, unspecified organism Code(s): J18.9 - Pneumonia, unspecified organism Status: Acute Assessment and Plan: Found on CT scan. Currently on IV antibiotics for this. Management per Hospitalist. (5) Chronic stasis dermatitis: Code(s): I87.2 - Venous insufficiency (chronic) (peripheral) Status: Acute Assessment and Plan: Right lower extremity with chronic stasis dermatitis. Wound care consulted. Would agree with local wound care and leg elevation. (6) Gastroenteritis: Code(s): K52.9 - Noninfective gastroenteritis and colitis, unspecified Status: Acute Assessment and Plan: C. Diff ordered due to recent antibiotic use. Continue supportive care. Management per Hospitalist. (7) Electrolyte abnormality: Code(s): E87.8 - Other disorders of electrolyte and fluid balance, not elsewhere classified Status: Acute (8) Obstructive sleep apnea: Code(s): G47.33 - Obstructive sleep apnea (adult) (pediatric) Status: Acute Additional Plan I have discussed the patient's case and plan of care with Dr. Breaux. History of Present Illness Consult details Consult date: 03/04/21 Reason for c
--- NOTE | 2021-03-04 15:19 | PM.IMPN ---
Progress Note: A&P Assessment and Plan (1) Pneumonia: Code(s): J18.9 - Pneumonia, unspecified organism Status: Acute Assessment and Plan: CT scan showing pneumonia -no fevers or leukocytosis -patient was started on ceftriaxone and azithromycin by ER physician -no oxygen requirements -Legionella? Patient also had diarrhea, Legionella antigen pending -likely discharge in 1-2 days on oral antibiotics if patient continues to improve (2) Ventral hernia: Code(s): K43.9 - Ventral hernia without obstruction or gangrene Status: Inactive Assessment and Plan: Chronic -follow-up with surgery outpatient -no signs of strangulation or incarceration (3) Chronic stasis dermatitis: Code(s): I87.2 - Venous insufficiency (chronic) (peripheral) Status: Acute Assessment and Plan: Continued to keep leg elevated and wrapped -see wound RN note -no DVTs on ultrasound today (4) Gastroenteritis: Code(s): K52.9 - Noninfective gastroenteritis and colitis, unspecified Status: Acute Assessment and Plan: Likely the cause of his diarrhea and nausea/vomiting -senna held (5) Insulin dependent type 2 diabetes mellitus: Code(s): E11.9 - Type 2 diabetes mellitus without complications; 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 I am having the RN verify this. Since he has been in the 100-200 range, i'll start 8u with meals with SSI and can adjust depending on his glucose -Victoza nonformulary, this has been held -hold metformin (6) Hypertension: Qualifiers: Hypertension type: essential hypertension Qualified Code(s): I10 - Essential (primary) hypertension Code(s): I10 - Essential (primary) hypertension Status: Acute Assessment and Plan: last bp 124/60 -Continue lisinopril Time Spent With Patient Time with patient: 25 - 35 minutes Subjective Date/time seen: 03/04/21 15:19 Interval history: Pt is a overweight 65-year-old male here for gastroenteritis and pneumonia. Patient was seen today and was taking a nap and did not want to wake up. He told me to leave him alone. He did, however, answer few questions for me. He said he did not have any further diarrhea, no chest pain, no shortness of breath, and was feeling okay. He continues to have chronic abdominal pain from his hernia. Nurse states pt was up earlier today and has been doing well. Review of Systems Review of Systems: All systems reviewed & are unremarkable except as noted in HPI and below Exam Narrative: Exam Narrative: General: Overweight patient resting comfortably in bed in no acute distress. HEENT: normocephalic Neck: supple Neuro: Alert and oriented x 4. He kept falling sleep during my exam but was easily awakened. Refused to neurological exam CV:RRR. Telemetry shows occasional PVCs Resp: Decreased breath sounds in the left lung base. No wheezing or rhonchi Abd: Soft, non distended. Hernia noted in the left lower abdomen. I did not try to reduce it due to size. Pain to palpation Extremities: Left ngsfj-yrw-cula amputation. Right leg with chronic erythema and venous stasis ulcers. Objective Data Vital Signs Vital Signs: Vital Signs - 24 hr 03/03/21 16:00 03/03/21 18:20 03/03/21 18:27 Temperature 99.2 F 99.2 F Pulse Rate 102 H 116 H 116 H Respiratory Rate 20 20 Blood Pressure 171/84 H 117/88 117/88 Pulse Oximetry 100 90 90 03/03/21 20:00 03/03/21 20:56 03/03/21 21:00 Temperature 101 F H 101 F H Pulse Rate 125 H 115 H Respiratory Rate 20 Blood Pressure 145/66 H Pulse Oximetry 92 03/03/21 22:00 03/04/21 00:00 03/04/21 04:00 Temperature 99.6 F Pulse Rate 111 H 88 Respiratory Rate Blood Pressure Pulse Oximetry
[2021-03-04 16:47] LABS: Glucose Point of Care 260 mg/dl (65-105)
[2021-03-04] MEDS: INSULIN ASPART (*BKC) 100 UNITS/ML 8 UNITS SUB-Q (17:15)
[2021-03-04] MEDS: PANTOPRAZOLE SODIUM IV 40 MG VIAL IV PUSH (17:18)
[2021-03-04 21:37] LABS: Glucose Point of Care 267 mg/dl (65-105)
[2021-03-04] MEDS: ATORVASTATIN 10 MG TABLET PO (21:44)
[2021-03-04] MEDS: MIRTAZAPINE 30 MG TABLET PO (21:44)
[2021-03-04] MEDS: ENOXAPARIN 40 MG/0.4 ML SYRINGE SUB-Q (21:44)
[2021-03-04] MEDS: MELATONIN 3 MG TABLET PO (21:44)
[2021-03-04] MEDS: TOLNAFTATE 1% POWDER 45 GM BTL 1 APPLIC TOPICAL (21:46)
[2021-03-04] MEDS: INSULIN GLARGINE (*BKC) 100 UNITS/ML 80 UNITS SUB-Q (21:48)
[2021-03-05 05:09] VITALS: BP 140/68; PULSE 94; RESP 18; TEMP 36.5; O2SAT 94
[2021-03-05 05:58] LABS: Basophils Percent Auto 0.2 % (0.2-1.2); Eosinophils Absolute Auto 0.3 K/mm3 (0-0.3); Eosinophils Percent Auto 4.8 % (0-4.4); Hematocrit 32.5 % (42.0-52.0); Hemoglobin 10.4 g/dL (14.0-18.0); Immature Granulocyte Absolute 0.05 K/mm3 (0.00-0.031); Immature Granulocyte Percent A 0.8 % (0-0.5); Lymphocytes Absolute Auto 1.21 K/mm3 (0.9-3.2); Lymphocytes Percent Auto 20.2 % (18.3-44.2); Mean Corpuscular Hemoglobin 29.8 pg (26-34); Mean Corpuscular Volume 93.1 fl (80-100); Mean Platelet Volume 8.3 fl (7.4-10.4); Monocytes Percent Auto 17.4 % (2.6-8.5); Neutrophils Absolute Auto 3.4 K/mm3 (1.3-6.7); Neutrophils Percent Auto 56.6 % (45.5-73.1); Platelet Count Result 201 k/mm3 (150-375); Red Blood Count 3.49 M/mm3 (4.6-6.20)
[2021-03-05 06:03] LABS: Anion Gap 3 mmol/L (8-16); Blood Urea Nitrogen 27 mg/dL (9-20); Calcium 7.9 mg/dL (8.4-10.2); Carbon Dioxide 29 mmol/L (22-30); Chloride 104 mmol/L (98-107); Estimated CRCL calculation 110 ml/min; Estimated Glomerular Filt Rate > 60; Glucose 177 mg/dL (75-110); Potassium 4.2 mmol/L (3.4-5.0); Sodium 136 mmol/L (137-145)
[2021-03-05 06:11] LABS: Transferrin 202 mg/dL (206-381)
[2021-03-05 06:51] LABS: Iron 20 ug/dL (49-181)
[2021-03-05 07:01] LABS: Percent Iron Saturation 7 % (20-50)
[2021-03-05 07:26] LABS: Folic Acid > 20.0 ng/mL (2.76->20); Vitamin B12 < 159.0 pg/mL (239-931)
[2021-03-05 07:38] LABS: Glucose Point of Care 159 mg/dl (65-105)
[2021-03-05] MEDS: INSULIN ASPART (*BKC) 100 UNITS/ML 8 UNITS SUB-Q ×3 (07:45→17:02)
[2021-03-05] MEDS: INSULIN GLARGINE (*BKC) 100 UNITS/ML 20 UNITS SUB-Q (07:45)
[2021-03-05] MEDS: PANTOPRAZOLE SODIUM IV 40 MG VIAL IV PUSH (08:44)
[2021-03-05] MEDS: THERAPEUTIC MULTIVITAMINS/MINERALS TAB (*BKC) 1 TABLET PO (08:44)
[2021-03-05] MEDS: CYANOCOBALAMIN INJ 1,000 MCG/ML VIAL 1000 MCG IM (08:44)
[2021-03-05] MEDS: GABAPENTIN 300 MG CAPSULE 600 MG PO ×3 (08:44→17:01)
[2021-03-05] MEDS: ASCORBIC ACID 500 MG TABLET PO ×2 (08:44→21:30)
[2021-03-05] MEDS: ESCITALOPRAM OXALATE 10 MG TABLET PO (08:44)
[2021-03-05] MEDS: ESCITALOPRAM OXALATE 5 MG TABLET PO (08:44)
[2021-03-05] MEDS: lisinopriL 10 MG TABLET PO (08:44)
[2021-03-05] MEDS: ASPIRIN 81 MG ENTERIC TABLET PO (08:44)
[2021-03-05] MEDS: busPIRone HCL 5 MG TABLET PO ×3 (08:44→17:01)
[2021-03-05] MEDS: TOLNAFTATE 1% POWDER 45 GM BTL 1 APPLIC TOPICAL ×2 (08:45→21:31)
[2021-03-05] MEDS: MENTHOL 10% / METHYL SALICYLATE 15% 57 GM TUBE 1 APPLIC TOPICAL ×2 (08:45→17:01)
[2021-03-05] MEDS: MUPIROCIN 2% OINT 22 GM TUBE 1 APPLIC TOPICAL (08:46)
--- NOTE | 2021-03-05 10:36 | PM.PNGS ---
Progress Note: A&P Assessment and Plan (1) Recurrent ventral incisional hernia: Code(s): K43.2 - Incisional hernia without obstruction or gangrene Status: Acute Assessment and Plan: This is the reason for consultation. He has a large recurrent ventral incisional hernia in the left lower abdomen. This is a chronic issue for the patient and he has been symptomatic for many years. Continue using the abdominal binder during the day or with activity. Encouraged the patient to continue working on weight loss and glycemic control to optimize his overall health preoperatively. We would recommend that he follow up with Dr. Lundy at [place] to discuss options for a repair now that he has lost more weight. This should be done after his acute issues have resolved. We will sign off at this point. Please let us know if any other surgical issues arise. (2) Pneumonia: Qualifiers: Laterality: bilateral Lung location: lower lobe of lung Pneumonia type: due to unspecified organism Qualified Code(s): J18.9 - Pneumonia, unspecified organism Code(s): J18.9 - Pneumonia, unspecified organism Status: Acute Assessment and Plan: Found on CT scan. Currently on IV antibiotics for this. Management per Hospitalist. (3) Chronic stasis dermatitis: Code(s): I87.2 - Venous insufficiency (chronic) (peripheral) Status: Acute Assessment and Plan: Right lower extremity with chronic stasis dermatitis. Wound care consulted. Would agree with local wound care and leg elevation. (4) Gastroenteritis: Code(s): K52.9 - Noninfective gastroenteritis and colitis, unspecified Status: Acute Assessment and Plan: Management per hospitalist. (5) Morbid obesity: Onset Date: Unknown Code(s): E66.01 - Morbid (severe) obesity due to excess calories Status: Acute Assessment and Plan: Reportedly the patient has worked on weight loss over the past 3 months and is doing well with this. He will need to continue to adhere to healthy lifestyle changes for weight loss prior to a repair. This increases his risks for recurrence and for surgery. See plan above. 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 Breaux. Subjective Subjective Date/Time Seen: 03/05/21 10:02 Patient reports: no new complaints, feels better (With abdominal binder), tolerating a regular diet, flatus and bowel movement (On admission) Interval history: Patient doing well today. He feels that the abdominal binder does improve his symptoms associated with this hernia. He is tolerating a diet. He is passing gas and had a bowel movement yesterday. No other complaints at this time. Exam Const: General: comfortable, no acute distress, alert and awake Nutritional Appearance: obese morbidly obese GI: Inspection: Pannus present, obesity, scar (large vertical scar at midline from xiphoid to pubis), visible herniation (LLQ) and other (Abdominal binder in place) GI Palp: Yes Soft to palpation Other: Large left lower quadrant ventral hernia that is soft but tender to palpation. At least partially reducible, but difficult to appreciate due to size. Neuro: General: moves all extremities and no focal motor deficits Extrem: General: amputation noted Below the knee: left Right lower extremity: lower leg (chronic venous stasis dermatitis with open weeping superficial wounds) Details: erythema and pitting edema Psych: Mental Status: mental status grossly normal Insight: Good insight present (Psych) Judgement: Good judgement present (Psych) Objective Data Vital Signs Vital Signs: Vital Signs - 24 hr 03/04/21 12:00 03/04/21 13:52 03/04/21 20:38 Temperature 97.6 F 97.9 F Pulse Rate 92 95 100 Respiratory Rate 16 19 Blood
--- NOTE | 2021-03-05 11:01 | PM.IMPN ---
Progress Note: A&P Assessment and Plan (1) Discharge planning issues: Code(s): Z02.9 - Encounter for administrative examinations, unspecified Status: Acute Assessment and Plan: patient appears medically stable for discharge but is unable to discharge today due to pending COVID-19 test according to his facility - discharge tomorrow (2) Pneumonia: Code(s): J18.9 - Pneumonia, unspecified organism Status: Acute Assessment and Plan: CT scan showing pneumonia -no fevers, leukocytosis, or oxygen requirements -patient was started on ceftriaxone and azithromycin by ER physician - COVID-19 pending, await results. [place] to be less likely -Legionella? Patient also had diarrhea, Legionella antigen pending -likely discharge in 1-2 days on oral antibiotics if patient continues to improve (3) Ventral hernia: Code(s): K43.9 - Ventral hernia without obstruction or gangrene Status: Inactive Assessment and Plan: Chronic -follow-up with surgery outpatient -no signs of strangulation or incarceration - abdominal binder in place (4) Chronic stasis dermatitis: Code(s): I87.2 - Venous insufficiency (chronic) (peripheral) Status: Acute Assessment and Plan: Continued to keep leg elevated and wrapped -see wound RN note -no DVTs on ultrasound (5) Gastroenteritis: Code(s): K52.9 - Noninfective gastroenteritis and colitis, unspecified Status: Acute Assessment and Plan: Likely the cause of his diarrhea and nausea/vomiting -senna will be placed PRN (6) Insulin dependent type 2 diabetes mellitus: Code(s): E11.9 - Type 2 diabetes mellitus without complications; Z79.4 - [facility] (current) use of insulin Status: Acute Assessment and Plan: Last glucose 159 -A1c 9.2 -Continue SSI, 8u of insulin with meals, lantus 20uAM and lantus 80uHS -Pt usually takes 35u of novolog with meals at the [facility] (confirmed by RN). Will continue with 8u for now as he is in an appropriate range -Victoza nonformulary, this has been held -hold metformin (7) Hypertension: Qualifiers: Hypertension type: essential hypertension Qualified Code(s): I10 - Essential (primary) hypertension Code(s): I10 - Essential (primary) hypertension Status: Acute Assessment and Plan: last bp 140/68 -Continue lisinopril (8) B12 deficiency anemia: Code(s): D51.9 - Vitamin B12 deficiency anemia, unspecified Status: Acute Assessment and Plan: Will give B12 IM x1 and then switch to oral -will need repeat b12 in 6 weeks at the nursing facility. If it does not improve by then, he may need regular injections Subjective Date/time seen: 03/05/21 11:01 Interval history: Pt is a overweight 65-year-old male here for gastroenteritis and pneumonia. Patient was seen today and was doing well. He no complaints. He was very happy with the abdominal binder as he said it helped his abdominal pain. Pt denies nausea, vomiting, fevers, chills, constipation, diarrhea, chest pain, sob, or problems eating drinking. he has a dry cough occasionally Exam Narrative: Exam Narrative: General: Overweight patient resting comfortably in bed in no acute distress. HEENT: normocephalic Neck: supple Neuro: Alert and oriented x 4. CV:RRR. Resp: CTA today, No wheezing or rhonchi Abd: Soft, non distended. abdominal binder in place. Extremities: Left [id number] amputation. Right leg with chronic erythema and venous stasis ulcers. Objective Data Vital Signs Vital Signs: Vital Signs - 24 hr 03/04/21 12:00 03/04/21 13:52 03/04/21 20:38 Temperature 97.6 F 97.9 F Pulse Rate 92 95 100 Respiratory Rate 16 19 Blood Pressure 124/60 134/60 Pulse Oximetry 98 94 03/05/21 05:09 Temperature 97.7 F Pulse Rate 94 Respiratory Rate 18 Blood Pressure 140/68 Pulse Oximetry 94 Intake/Output Intake/Out
[2021-03-05 11:55] VITALS: O2SAT 95
[2021-03-05 11:55] LABS: Glucose Point of Care 196 mg/dl (65-105)
[2021-03-05 14:00] VITALS: BP 129/54; PULSE 93; RESP 16; TEMP 35.8; O2SAT 92
[2021-03-05 16:44] LABS: Glucose Point of Care 166 mg/dl (65-105)
[2021-03-05 16:58] LABS: SARS-CoV-2 RNA PCR Negative
[2021-03-05 20:59] LABS: Glucose Point of Care 216 mg/dl (65-105)
[2021-03-05] MEDS: ENOXAPARIN 40 MG/0.4 ML SYRINGE SUB-Q (21:29)
[2021-03-05] MEDS: MELATONIN 3 MG TABLET PO (21:29)
[2021-03-05] MEDS: MIRTAZAPINE 30 MG TABLET PO (21:30)
[2021-03-05] MEDS: ATORVASTATIN 10 MG TABLET PO (21:30)
[2021-03-05] MEDS: traZODone HCL 50 MG TABLET 150 MG PO (21:30)
[2021-03-05] MEDS: INSULIN GLARGINE (*BKC) 100 UNITS/ML 80 UNITS SUB-Q (21:32)
[2021-03-05 21:40] VITALS: BP 154/76; PULSE 96; RESP 18; TEMP 37.1; O2SAT 93
[2021-03-06 06:22] LABS: Hematocrit 33.4 % (42.0-52.0); Hemoglobin 10.3 g/dL (14.0-18.0); Mean Corpuscular HGB Conc 30.8 g/dl (32-36); Mean Corpuscular Hemoglobin 28.7 pg (26-34); Mean Platelet Volume 8.4 fl (7.4-10.4); Platelet Count Result 199 k/mm3 (150-375); Red Blood Count 3.59 M/mm3 (4.6-6.20); Red Cell Distribution Width 13.9 % (11.5-14.5); White Blood Count 7.5 K/mm3 (4.5-10.0)
[2021-03-06 06:33] LABS: Anion Gap 4 mmol/L (8-16); Blood Urea Nitrogen 19 mg/dL (9-20); Calcium 7.8 mg/dL (8.4-10.2); Carbon Dioxide 28 mmol/L (22-30); Chloride 104 mmol/L (98-107); Estimated CRCL calculation 154 ml/min; Estimated Glomerular Filt Rate > 60; Glucose 218 mg/dL (75-110); Potassium 4.3 mmol/L (3.4-5.0); Sodium 136 mmol/L (137-145)
[2021-03-06] MEDS: ACETAMINOPHEN 500 MG TABLET PO (08:15)
[2021-03-06 08:52] VITALS: BP 172/87; PULSE 90; RESP 18; TEMP 36.2; O2SAT 96
[2021-03-06 08:52] LABS: Glucose Point of Care 186 mg/dl (65-105)
[2021-03-06] MEDS: INSULIN ASPART (*BKC) 100 UNITS/ML 8 UNITS SUB-Q ×2 (09:11→11:42)
[2021-03-06] MEDS: INSULIN GLARGINE (*BKC) 100 UNITS/ML 20 UNITS SUB-Q (09:12)
[2021-03-06] MEDS: GABAPENTIN 300 MG CAPSULE 600 MG PO ×2 (09:15→11:45)
[2021-03-06] MEDS: THERAPEUTIC MULTIVITAMINS/MINERALS TAB (*BKC) 1 TABLET PO (09:15)
[2021-03-06] MEDS: busPIRone HCL 5 MG TABLET PO ×2 (09:15→11:45)
[2021-03-06] MEDS: CYANOCOBALAMIN 1,000 MCG TABLET 1000 MCG PO (09:16)
[2021-03-06] MEDS: ASCORBIC ACID 500 MG TABLET PO (09:16)
[2021-03-06] MEDS: ESCITALOPRAM OXALATE 5 MG TABLET PO (09:16)
[2021-03-06] MEDS: ASPIRIN 81 MG ENTERIC TABLET PO (09:16)
[2021-03-06] MEDS: lisinopriL 10 MG TABLET PO (09:16)
[2021-03-06] MEDS: ESCITALOPRAM OXALATE 10 MG TABLET PO (09:16)
[2021-03-06] MEDS: TOLNAFTATE 1% POWDER 45 GM BTL 1 APPLIC TOPICAL (09:17)
[2021-03-06] MEDS: PANTOPRAZOLE SODIUM IV 40 MG VIAL IV PUSH (09:17)
[2021-03-06] MEDS: MUPIROCIN 2% OINT 22 GM TUBE 1 APPLIC TOPICAL (09:17)
[2021-03-06] MEDS: MENTHOL 10% / METHYL SALICYLATE 15% 57 GM TUBE 1 APPLIC TOPICAL (09:18)
--- NOTE | 2021-03-06 11:07 | PM.DS ---
DS: Admitting Diagnosis Admitting Diagnosis Admitting Diagnosis: Gastroenteritis, Pneumonia DS: Discharge Diagnosis Discharge Diagnosis (1) Discharge planning issues: Code(s): Z02.9 - Encounter for administrative examinations, unspecified Status: Acute Assessment and Plan: patient appears medically stable for discharge but is unable to discharge today due to pending COVID-19 test according to his facility - discharge today (2) Pneumonia: Code(s): J18.9 - Pneumonia, unspecified organism Status: Acute Assessment and Plan: CT scan showing pneumonia -no fevers, leukocytosis, or oxygen requirements -patient was started on ceftriaxone and azithromycin by ER physician - COVID-19 negative -Legionella? Patient also had diarrhea - now improved, Legionella antigen pending - lung sounds are clear today upon auscultation -discharged on oral antibiotics (3) Ventral hernia: Code(s): K43.9 - Ventral hernia without obstruction or gangrene Status: Inactive Assessment and Plan: Chronic -follow-up with surgery outpatient -no signs of strangulation or incarceration - abdominal binder in place - no pain or complaints at this time, no evidence of acute (4) Chronic stasis dermatitis: Code(s): I87.2 - Venous insufficiency (chronic) (peripheral) Status: Acute Assessment and Plan: Continued to keep RIGHT leg elevated and wrapped -minimize feet on ground and in dependent position -see wound RN note -no DVTs on ultrasound - patient stated he will continue to be treated by his Wound nurse and Cellulitis physician, that sees him at his facility. -he stated that the cellulitis has continued to improve with current treatment. (5) Gastroenteritis: Code(s): K52.9 - Noninfective gastroenteritis and colitis, unspecified Status: Acute Assessment and Plan: Likely the cause of his diarrhea and nausea/vomiting -senna will be placed PRN - no complaints of N/V or diarrhea today - ate 100% of his breakfast , observed at the time of my examination (6) Insulin dependent type 2 diabetes mellitus: Code(s): E11.9 - Type 2 diabetes mellitus without complications; Z79.4 - [facility] (current) use of insulin Status: Acute Assessment and Plan: Last glucose 218 -A1c 9.2 - TSH 1.97 -Continue SSI, 8u of insulin with meals, lantus 20uAM and lantus 80uHS -Pt usually takes 35u of novolog with meals at the [facility] (confirmed by RN). Will continue with 8u for now as he is in an appropriate range -Victoza nonformulary, this has been held -held metformin (7) Hypertension: Qualifiers: Hypertension type: essential hypertension Qualified Code(s): I10 - Essential (primary) hypertension Code(s): I10 - Essential (primary) hypertension Status: Acute Assessment and Plan: last BP range was 129/54 to 154/76 -Continue lisinopril (8) B12 deficiency anemia: Code(s): D51.9 - Vitamin B12 deficiency anemia, unspecified Status: Acute Assessment and Plan: Given B12 IM x1 and then switched to oral -will need repeat B12 in 6 weeks at the nursing facility. If it does not improve by then, he may need regular injections DS: Summary Hospital Course Hospital Course: Improved with antibiotics, N/V resolved. Time Spent with Patient Time attestation: Total time spent providing and/or coordinating discharge services:60 minutes Exam Narrative: Exam Narrative: General: Overweight patient resting comfortably in sitting position on the side of his bed, just completed breakfast, in no acute distress. HEENT: normocephalic Neck: supple Neuro: Alert and oriented x 4. CV:RRR. Resp: CTA today, No wheezing or rhonchi Abd: Soft, non distended. abdominal binder in place. Extremities: Left [id number] amputation. Amputation sight healing well, no open areas noted, no scabs, and no redness or swelling noted on exam. Right leg with c
[2021-03-06 11:30] LABS: Glucose Point of Care 222 mg/dl (65-105)
[2021-03-06] MEDS: INSULIN ASPART (*BKC) 100 UNITS/ML SUB-Q (11:42)
[2021-03-06 12:52] LABS: Pneumococcal Antigen Urine Not Detected (Not Detected)
[2021-03-08 09:05] LABS: Legionella pneumophila Ag Ur Not Detected (Not Detected)
--- NOTE | 2021-03-10 07:57 | PC.NURSE ---
Urine legionella and pneumoccal are both negative.
== END 2021-03-06 14:22 | DRG 194 ==
LOC: ANHED 12:20 → ANH3MED 15:38
PROVIDERS: Physician Assistant; Admitting Provider Family Medicine; Emergency Provider Emergency Medicine; Visit Provider Nurse Practitioner
DX: J18.9 Pneumonia, unspecified organism (principal); Z68.43 Body mass index [BMI] 50.0-59.9, adult; K52.9 Noninfective gastroenteritis and colitis, unspecified; E66.01 Morbid (severe) obesity due to excess calories; Z20.822 Contact with and (suspected) exposure to COVID-19; K43.2 Incisional hernia without obstruction or gangrene; I25.10 Atherosclerotic heart disease of native coronary artery without angina pectoris; E11.51 Type 2 diabetes mellitus with diabetic peripheral angiopathy without gangrene; I87.2 Venous insufficiency (chronic) (peripheral); F41.8 Other specified anxiety disorders; I10 Essential (primary) hypertension; G47.33 Obstructive sleep apnea (adult) (pediatric); E87.8 Other disorders of electrolyte and fluid balance, not elsewhere classified; D51.9 Vitamin B12 deficiency anemia, unspecified; Z79.4 Long term (current) use of insulin; Z79.82 Long term (current) use of aspirin; Z79.899 Other long term (current) drug therapy; Z86.16 Personal history of COVID-19; Z86.718 Personal history of other venous thrombosis and embolism; Z88.0 Allergy status to penicillin; Z89.512 Acquired absence of left leg below knee
CPT/HCPCS: 36415; 74177; 80048; 80053; 81001; 82607; 82728; 82746; 82948; 83036; 83540; 83550; 83690; 83735; 84443; 84466; 85025; 85027; 86140; 87015; 87040; 87045; 87046; 87269; 87272; 87427; 87449; 87899; 93971; 96365; 96367; 96372; 96375; 99285; A9270; C9113; C9803; G0378; J0456; J0696; J1650; J1815; J2405; J3010; J3420; J7030; Q9967; U0003; U0005

== ENCOUNTER 2021-05-03 13:43 | Emergency (ER) | payer MEDICARE, MEDICAID, SELFPAY ==
[2021-05-03] VITALS (14 sets, daily range): BP systolic 145–196; BP diastolic 74–87; PULSE 85–101; RESP 18–22; TEMP 36.4; O2SAT 92–99
--- NOTE | ~2021-05-03 | US_ITS ---
EXAMINATION: US arterial duplex LE RT DATE: 05/03/2021 16:16 INDICATION: Right leg and foot numbness TECHNIQUE: Multiple grayscale and Doppler ultrasound images of the arteries of the right lower limb w ere obtained. COMPARISON: None FINDINGS: Peak systolic velocities in the arteries of the right lower limb (cm/s) are 169 in the right common f emoral artery, 60 in the profunda femoral artery, 146 in the superficial femoral artery, 181 in the p opliteal artery, 123 in the posterior tibial artery and 106 and the dorsalis pedis artery. Doppler wa veforms demonstrate brisk systolic upstrokes throughout the arteries of the right lower limb. IMPRESSION: 1. No significant arterial occlusive disease suggested in the visualized arteries of the right lower limb with brisk systolic upstrokes throughout and no abnormally increased or decreased peak systolic velocities. Reviewed, dictated and finalized at location A. IMPRESSION: 1. No significant arterial occlusive disease suggested in the visualized arteri es of the right lower limb with brisk systolic upstrokes throughout and no abno rmally increased or decreased peak systolic velocities.
--- NOTE | ~2021-05-03 | XR_ITS ---
EXAMINATION: XR foot RT min 3V DATE: 05/03/2021 21:25 INDICATION: Right foot infection TECHNIQUE: Dorsoplantar, oblique and lateral views of the right foot were obtained. COMPARISON: None. FINDINGS: Diffuse soft tissue swelling about the right foot most prominent over the dorsum of the forefoot. Dif fuse osteopenia. There is hyper dorsiflexion and mild varus angulation at the fourth metatarsophalang eal joint. Alignment is otherwise normal. Suggestion of an old healed fracture deformity at the dista l tibia. No acute fracture. No periosteal reaction, cortical erosions or other osteolysis to suggest osteomyelitis. Small Achilles calcaneal spur and large plantar calcaneal spur. Mild polyarticular ost eoarthritis at the right ankle and at multiple joints in the right foot. IMPRESSION: 1. No findings to suggest osteomyelitis or other acute osseous abnormality. 2. 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 Reviewed, dictated and finalized at location A.
--- NOTE | 2021-05-03 13:59 | ECG_ITS ---
Measurements Intervals [place] Rate: 83 P: -21 [place]: 145 QRS: 50 QRSD: 109 T: 74 QT: 380 QTc: 447 Interpretive Statements SINUS RHYTHM INCOMPLETE RIGHT BUNDLE BRANCH BLOCK BORDERLINE ECG Electronically Signed On 05-03-2021 18:02:05 CDT by Osmin Black D.O.
[2021-05-03 14:15] LABS: Basophils Percent Auto 0.5 % (0.2-1.2); Eosinophils Absolute Auto 0.3 K/mm3 (0-0.3); Eosinophils Percent Auto 3.4 % (0-4.4); Hematocrit 39.7 % (42.0-52.0); Hemoglobin 11.6 g/dL (14.0-18.0); Immature Granulocyte Absolute 0.06 K/mm3 (0.00-0.031); Immature Granulocyte Percent A 0.7 % (0-0.5); Lymphocytes Absolute Auto 1.71 K/mm3 (0.9-3.2); Lymphocytes Percent Auto 19.4 % (18.3-44.2); Mean Corpuscular HGB Conc 29.2 g/dl (32-36); Mean Corpuscular Hemoglobin 26.7 pg (26-34); Mean Corpuscular Volume 91.3 fl (80-100); Mean Platelet Volume 8.4 fl (7.4-10.4); Monocytes Absolute Auto 1.2 K/mm3 (0.1-0.6); Monocytes Percent Auto 13.1 % (2.6-8.5); Neutrophils Absolute Auto 5.5 K/mm3 (1.3-6.7); Neutrophils Percent Auto 62.9 % (45.5-73.1); Platelet Count Result 194 k/mm3 (150-375); Red Blood Count 4.35 M/mm3 (4.6-6.20); Red Cell Distribution Width 15.6 % (11.5-14.5); White Blood Count 8.8 K/mm3 (4.5-10.0)
[2021-05-03 14:25] LABS: Alanine Aminotransferase 24 U/L (4-50); Albumin Level 3.8 g/dL (3.5-5.1); Alkaline Phosphatase 80 U/L (38-126); Anion Gap 5 mmol/L (8-16); Aspartate Amino Transferase 36 U/L (17-59); Bilirubin,Total 0.5 mg/dL (0.2-1.3); Blood Urea Nitrogen 16 mg/dL (9-20); Calcium 9.2 mg/dL (8.4-10.2); Carbon Dioxide 31 mmol/L (22-30); Chloride 101 mmol/L (98-107); Estimated CRCL calculation 134 ml/min; Estimated Glomerular Filt Rate > 60; Glucose 86 mg/dL (65-110); Potassium 4.8 mmol/L (3.4-5.0); Sodium 137 mmol/L (137-145)
--- NOTE | 2021-05-03 14:27 | ED.GENADULT ---
HPI - General Adult General Chief complaint: Extremity Problem,Nontraumatic Stated complaint: decreased circulation to R foot Time Seen by Provider: 05/03/21 13:59 Source: patient and EMS History of Present Illness HPI narrative: Patient is a 65 y/o [place] sent [place] for right foot and lower redness and decreased sensation. He also bumped his toenail and it fell off yesterday. Patient states that a doctor looked at his foot through a camera and instructed staff to send him here for evaluation. He states that he has redness and decreased sensation in foot and lower leg for at least 2 weeks. He has no feeling of pain. There is no known alleviating or exacerbating factor. He had previous left BKA. Related Data Home Medications Medication Instructions Recorded Confirmed Therapeutic-M Vitamin/Minerals 1 tablet PO DAILY 11/14/19 03/03/21 acetaminophen [Acetaminophen Extra 500 mg PO Q6H PRN 11/14/19 03/03/21 Strength] ascorbic acid (vitamin C) 500 mg PO BID 11/14/19 03/03/21 ergocalciferol (vitamin D2) 50,000 unit PO WEEKLY 11/14/19 03/03/21 [Vitamin D2] escitalopram oxalate 5 mg PO DAILY 11/14/19 03/03/21 escitalopram oxalate 10 mg PO DAILY 11/14/19 03/03/21 gabapentin 600 mg PO TID 11/14/19 03/03/21 mirtazapine 30 mg PO HS 11/14/19 03/03/21 aspirin [Aspirin Low Dose] 81 mg PO DAILY 12/08/19 03/03/21 atorvastatin 10 mg PO HS 12/08/19 03/03/21 sennosides-docusate sodium 1 tab-cap PO DAILY 04/14/20 03/03/21 [Senexon-S] Biofreeze (menthol) 1 applic TOPICAL BID 04/15/20 03/03/21 sodium chloride [Saline Nasal Mist] 1 spray INTRANASAL Q4H PRN 04/15/20 03/03/21 Lantus U-100 Insulin 20 unit SUBCUT QAM 11/05/20 03/03/21 Lantus U-100 Insulin 80 unit SUBCUT HS 11/05/20 03/03/21 insulin aspart U-100 [Novolog 1 sliding scale dose SUBCUT 11/05/20 03/03/21 U-100 Insulin aspart] USEASDIRECTD insulin aspart U-100 [Novolog 35 unit SUBCUT AC 11/05/20 03/03/21 U-100 Insulin aspart] Victoza 2-Tushar 1.8 mg SUBCUT DAILY 03/03/21 03/03/21 benzonatate 100 mg PO TID PRN 03/03/21 03/03/21 buspirone 5 mg PO TID 03/03/21 03/03/21 metformin 1,000 mg PO BID 03/03/21 03/03/21 mupirocin 1 applic TOPICAL BID 03/03/21 03/03/21 tramadol 50 mg PO Q6H PRN 03/03/21 03/03/21 trazodone 150 mg PO HS PRN 03/03/21 03/03/21 Allergies Allergy/AdvReac Type Severity Reaction Status Date / Time Penicillins AdvReac Unknown Fever Verified 05/03/21 13:53 Review of Systems Review of Systems: All systems reviewed & are unremarkable except as noted in HPI and below Constitutional: Constitutional: Denies chills, Denies fever(s), Denies headache(s) and Denies weakness Eyes: Eyes: Denies blurry vision ENT: Denies headache(s) and Denies neck pain Cardiovascular: Cardiovascular: Denies chest pain and Denies dyspnea Respiratory: Respiratory: Denies cough and Denies dyspnea Gastrointestinal: Gastrointestinal: Denies abdominal pain, Denies diarrhea, Denies nausea and Denies vomiting Genitourinary: Genitourinary: Denies hematuria and Denies dysuria Musculoskeletal: Musculoskeletal: Denies back pain and Denies neck pain Integumentary/Breasts: Skin/Breast: Reports erythema (right foot and lower leg) Neurologic: Denies headache(s), Reports Sensory deficit (Neuro) (decreased sensation right leg) and Denies weakness PMFSH Past Medical History Medical History Chronic anemia Chronic stasis dermatitis Coronary artery disease Depression with anxiety History of deep venous thrombosis Hypertension Insulin dependent type 2 diabetes mellitus Hemoglobin A1c 9.2 Obstructive sleep apnea Noncompliant with CPAP. Peripheral vascular disease Ventral hernia Chronic large left lower quadrant ventral hernia Surgical History Surgical History History of tonsillectomy Status post below-knee amputation of left lower extremity Status post herniorrhaphy Ventral hernia repair x3.
--- NOTE | 2021-05-03 16:45 | PC.NURSE ---
rn unable to draw ordered [facility] x 2 attempts. multiple licensed investment sales assistant unable to draw ordered [facility]. charge ed notified
[2021-05-03 18:10] LABS: INR 1.1; Prothrombin Time 14.2 Seconds (11.1-14.7)
[2021-05-03 18:11] LABS: Partial Thromboplastin Time 28.4 SECONDS (22.3-36.8)
[2021-05-03] MEDS: TETANUS,DIPHTHERIA,AC PERTUSSIS ADULT (0.5 ML) BOOSTRIX IM (20:04)
--- NOTE | 2021-05-03 22:22 | PC.NURSE ---
called [facility] to request transport. ETA midnight.
[2021-05-04 00:12] VITALS: BP 145/83; PULSE 88; RESP 20; TEMP 37; O2SAT 98
== END 2021-05-04 00:14 ==
PROVIDERS: Emergency Provider Emergency Medicine
DX: L03.115 Cellulitis of right lower limb (principal); D64.9 Anemia, unspecified; I25.10 Atherosclerotic heart disease of native coronary artery without angina pectoris; I87.2 Venous insufficiency (chronic) (peripheral); F41.8 Other specified anxiety disorders; E11.51 Type 2 diabetes mellitus with diabetic peripheral angiopathy without gangrene; G47.33 Obstructive sleep apnea (adult) (pediatric); I73.9 Peripheral vascular disease, unspecified; I10 Essential (primary) hypertension; Z23 Encounter for immunization; Z86.718 Personal history of other venous thrombosis and embolism; Z79.4 Long term (current) use of insulin; Z79.82 Long term (current) use of aspirin; Z89.512 Acquired absence of left leg below knee; I45.10 Unspecified right bundle-branch block
CPT/HCPCS: 36415; 73630; 80053; 85025; 85610; 85730; 90471; 90715; 93005; 93926; 96365; 96367; 99284; J0696; J3370

== ENCOUNTER 2021-05-15 16:40 | Inpatient (IN) | payer MEDICARE, MEDICAID, SELFPAY ==
[2021-05-15] VITALS (26 sets, daily range): BP systolic 114–147; BP diastolic 37–83; PULSE 89–107; RESP 12–26; O2SAT 94–100
--- NOTE | ~2021-05-15 | XR_ITS ---
EXAMINATION: XR chest 1V portable DATE: 05/19/2021 05:43 INDICATION: Respiratory failure TECHNIQUE: frontal view of the chest was obtained. COMPARISON: Chest radiograph dated 05/18/2021 FINDINGS: Scattered opacities throughout the right lung and in the left mid and lower lung zone. This is most p rominent in the left lower lung zone with blunting of the costophrenic angle likely due in part to sm all left pleural effusion. There has been decrease in the opacities in the right midlung zone. No pne umothorax or right-sided pleural effusion. Cardiomegaly. Instrumented cervical anterior spinal fusion . Resection of the lateral right clavicle. IMPRESSION: 1. Diffuse bilateral lung disease relatively sparing the left upper lung zone with improvement in the prior perihilar opacities in the right midlung zone which could represent pulmonary edema, pneumonia or combination thereof. 2. Possible small left pleural effusion. When 3. Cardiomegaly. Reviewed, dictated and finalized at location A. IMPRESSION: 1. Diffuse bilateral lung disease relatively sparing the left upper lung zone w ith improvement in the prior perihilar opacities in the right midlung zone whic h could represent pulmonary edema, pneumonia or combination thereof. 2. Possible small left pleural effusion. When 3. Cardiomegaly.
--- NOTE | ~2021-05-15 | CT_ITS ---
EXAMINATION: CT brain wo con INDICATION: Head injury COMPARISON: None TECHNIQUE: Standard unenhanced head CT. The dose-length product (DLP) was 681.00 mGy-cm. The mA was a djusted according to patient size. Iterative reconstruction technique was employed. FINDINGS: There is a right periorbital hematoma. The nasal bones are fractured. There is no acute int raparenchymal hemorrhage. No evidence of mass lesion. No evidence of acute infarction. There is mild periventricular and subcortical hypodensity probably related to small vessel ischemic disease. There is mild prominence of the sulci and ventricles related to cerebral atrophy. Intracranial calcified ce rebral atherosclerosis is noted. There are no extra-axial collections. There is no mass effect or mid line shift. The orbits are unremarkable. There is minimal opacification of the ethmoidal air cells. IMPRESSION: 1. No acute intracranial abnormality. 2. Age related findings. 3. Right periorbital hematoma with bilateral nasal bone fractures. Reviewed, dictated and finalized at location A.
--- NOTE | ~2021-05-15 | US_ITS ---
EXAMINATION: US renal BI DATE: 05/18/2021 14:43 INDICATION: Acute kidney injury TECHNIQUE: Multiple grayscale and Doppler ultrasound images of the kidneys were obtained. COMPARISON: None. FINDINGS: The right kidney measures 13.0 x 6.5 x 5.0 cm. The left kidney measures 12.1 x 5.5 x 6.0 cm . The kidneys demonstrate normal parenchymal echogenicity. There is no hydronephrosis. The bladder is decompressed by a Guerrero catheter. IMPRESSION: 1. Normal kidneys without hydronephrosis. Reviewed, dictated and finalized at location A.
--- NOTE | ~2021-05-15 | XR_ITS ---
EXAMINATION: XR chest 1V DATE: 05/15/2021 17:45 INDICATION: 1 week of productive cough. TECHNIQUE: frontal view of the chest was obtained. COMPARISON: Chest radiograph dated 01/14/2021 FINDINGS: Unchanged opacity situated between the left heart border and the lateral chest wall as well as along the right heart border corresponding to prominent left and right paracardial fat pads mild lingular a telectasis on intervening CT dated 03/03/2021. There is additional increased subpleural fat along the lateral right mid to lower lung. No new airspace opacities, pulmonary edema, pleural effusion or pneu mothorax. The cardiomediastinal silhouette remains within normal limits for AP technique. Calcified l eft hilar lymph nodes consistent with old granulomatous disease. Partially visualized plate and screw fixation for lower cervical anterior spinal fusion. Status post lateral right clavicle resection. IMPRESSION: 1. Stable appearance of prominent bilateral paracardial fat pads and mild lingular atelectasis. No ac german cardiopulmonary disease. Reviewed, dictated and finalized at location A. IMPRESSION: 1. Stable appearance of prominent bilateral paracardial fat pads and mild lingu lar atelectasis. No acute cardiopulmonary disease.
--- NOTE | ~2021-05-15 | CT_ITS ---
EXAMINATION: CT facial bones wo con DATE: 05/15/2021 17:41 INDICATION: Facial pain, initial encounter TECHNIQUE: Computed tomography (CT) of the facial bones and maxillofacial region was performed withou t intravenous contrast. The dose-length product (DLP) was 681.00 mGy-cm. Automated exposure control a nd iterative reconstruction technique were employed. COMPARISON: None. FINDINGS: There is a right periorbital soft tissue hematoma. There are bilateral nasal bone fractures . The orbits are intact. The globes are normal. There is partial opacification of the ethmoidal air c ells. Surgical changes are noted in the cervical spine. IMPRESSION: 1. Bilateral nasal bone fractures. 2. Right periorbital hematoma. Reviewed, dictated and finalized at location A.
--- NOTE | ~2021-05-15 | XR_ITS ---
EXAMINATION: XR chest port-a-cath/central DATE: 05/20/2021 16:06 INDICATION: Central line placement. TECHNIQUE: A single frontal view of the chest was obtained. COMPARISON: Chest single view 05/19/2021 FINDINGS: There are airspace opacities in the lower lung zones, left worse than right. There is promi nent extrapleural fat bilaterally. No pleural effusion or pneumothorax. The heart size is normal. Med iastinal lipomatosis is noted. A right subclavian central venous catheter is seen with tip at the sup erior cavoatrial junction. There is displacement of the catheter between the clavicle and first rib. IMPRESSION: 1. Central line tip at superior cavoatrial junction. Displacement of the catheter between the clavicl e and first rib, which is a sign of increased risk of catheter fracture (pinch-off syndrome). 2. Mild airspace opacities in the lower lung zones, left worse than right with improvement on the lef t, consistent with atelectasis versus pneumonia. Reviewed, dictated and finalized at location A. IMPRESSION: 1. Central line tip at superior cavoatrial junction. Displacement of the cathet er between the clavicle and first rib, which is a sign of increased risk of cat heter fracture (pinch-off syndrome). 2. Mild airspace opacities in the lower lung zones, left worse than right with improvement on the left, consistent with atelectasis versus pneumonia.
--- NOTE | ~2021-05-15 | XR_ITS ---
EXAMINATION: XR chest 1V portable DATE: 05/18/2021 06:01 INDICATION: Congestive heart failure TECHNIQUE: frontal view of the chest was obtained. COMPARISON: Chest radiograph dated 05/15/2021 FINDINGS: Increasing opacities in the right lung with perihilar predominance and in the left lower lung zone. P ossible small left pleural effusion. No definitive right pleural effusion. No pneumothorax. Cardiomeg joey. Instrumented cervical anterior spinal fusion. Prior lateral right clavicle resection. IMPRESSION: 1. Increasing perihilar predominant opacities in the right lung and opacities in the left lower lung zone which could represent pulmonary edema, pneumonia, atelectasis or some combination thereof. 2. Possible small left pleural effusion. 3. Cardiomegaly. Reviewed, dictated and finalized at location A. IMPRESSION: 1. Increasing perihilar predominant opacities in the right lung and opacities i n the left lower lung zone which could represent pulmonary edema, pneumonia, at electasis or some combination thereof. 2. Possible small left pleural effusion. 3. Cardiomegaly.
--- NOTE | ~2021-05-15 | XR_ITS ---
EXAMINATION: XR chest 1V portable DATE: 05/26/2021 14:54 INDICATION: Hemoptysis. TECHNIQUE: A single frontal view of the chest was obtained. COMPARISON: Chest single view 05/20/2021, CT abdomen and pelvis 03/03/2021 FINDINGS: There is chronic blunting of left lateral costophrenic angle correlating with prominent ext rapleural fat on the prior CT. There are mild airspace opacities in the mid and lower lung zones with a perihilar predominance. No pneumothorax. Mediastinal lipomatosis is noted. The heart size is jose l. A right subclavian central venous catheter is seen with tip in the superior vena cava. There is di splacement of the catheter between the clavicle and first rib. There are changes of anterior fusion p rocedure in cervical spine. IMPRESSION: 1. Mild airspace opacities in the mid and lower lung zones with interval improvement, consistent with atelectasis versus pneumonia. 2. Persistent displacement of the dialysis catheter between the clavicle and first rib, which is a si gn of increased risk of catheter fracture (pinch-off syndrome). Reviewed, dictated and finalized at location A. IMPRESSION: 1. Mild airspace opacities in the mid and lower lung zones with interval improv ement, consistent with atelectasis versus pneumonia. 2. Persistent displacement of the dialysis catheter between the clavicle and fi rst rib, which is a sign of increased risk of catheter fracture (pinch-off synd rahul).
--- NOTE | ~2021-05-15 | XR_ITS ---
EXAMINATION: XR fl guide central line place DATE: 05/20/2021 15:50 INDICATION: Central line placement. TECHNIQUE: 4 intraoperative fluoroscopic views of the chest were obtained. I was not present. Fluoros copy exposure time was 134 seconds. COMPARISON: Chest single view 05/19/2021 FINDINGS: A right subclavian central venous catheter is seen with tip at the superior cavoatrial junc tion. IMPRESSION: 1. Central line tip at superior cavoatrial junction. Reviewed, dictated and finalized at location A.
--- NOTE | ~2021-05-15 | NM_ITS ---
EXAMINATION: NM renal flow and function DATE: 05/20/2021 14:15 INDICATION: Acute kidney injury TECHNIQUE: Following the intravenous administration of 7 mCi Tc-99m MAG3, posterior abdominal radionu clide angiogram and subsequent time course of static images of the kidneys, ureters, and bladder were obtained. COMPARISON: None FINDINGS: The posterior abdominal radionuclide angiogram obtained demonstrates symmetric but delayed perfusion of the kidneys relative to the liver and spleen. Sequential static images show normal juan antonio l size, position, morphology and tracer accumulation. No central photopenic defects to suggest hydron ephrosis. Renogram shows relatively symmetric delayed uptake and excretion of radiopharmaceutical (no rmal peak 3-5 minutes) with slow continually rising renal activity curves extending to the 30 minutes of imaging. The relative early renal uptake is 47% on the right and 53% on the left (<40% is abnorm al). Still readily discernible blood pool activity at the liver and spleen throughout the course of i maging and is unclear whether the level of activity seen centrally below the level of the kidneys rep resents activity in the aorta and inferior vena cava or in the ureters. IMPRESSION: 1. Symmetric bilateral decreased renal perfusion and significantly delayed uptake and clearance clear ance from both kidneys without findings of hydronephrosis on the scintigraphic images or on the recen t prior ultrasound most suggestive of acute tubular necrosis. Reviewed, dictated and finalized at location A. IMPRESSION: 1. Symmetric bilateral decreased renal perfusion and significantly delayed upta ke and clearance clearance from both kidneys without findings of hydronephrosis on the scintigraphic images or on the recent prior ultrasound most suggestive of acute tubular necrosis.
--- NOTE | 2021-05-15 17:03 | ECG_ITS ---
Measurements Intervals [place] Rate: 99 P: 63 [place]: 156 QRS: 50 QRSD: 117 T: 67 QT: 344 QTc: 443 Interpretive Statements SINUS RHYTHM INCOMPLETE RIGHT BUNDLE BRANCH BLOCK BORDERLINE ECG Electronically Signed On 05-16-2021 7:26:28 CDT by Osmin Black D.O.
[2021-05-15 17:53] LABS: Basophils Percent Auto 0.1 % (0.2-1.2); Eosinophils Absolute Auto 0.2 K/mm3 (0-0.3); Eosinophils Percent Auto 2.5 % (0-4.4); Hematocrit 40.9 % (42.0-52.0); Hemoglobin 11.6 g/dL (14.0-18.0); Immature Granulocyte Absolute 0.05 K/mm3 (0.00-0.031); Immature Granulocyte Percent A 0.7 % (0-0.5); Lymphocytes Absolute Auto 1.08 K/mm3 (0.9-3.2); Mean Corpuscular HGB Conc 28.4 g/dl (32-36); Mean Corpuscular Hemoglobin 26.5 pg (26-34); Mean Corpuscular Volume 93.6 fl (80-100); Mean Platelet Volume 8.3 fl (7.4-10.4); Monocytes Absolute Auto 1.1 K/mm3 (0.1-0.6); Monocytes Percent Auto 16.4 % (2.6-8.5); Neutrophils Absolute Auto 4.3 K/mm3 (1.3-6.7); Neutrophils Percent Auto 64.3 % (45.5-73.1); Platelet Count Result 165 k/mm3 (150-375); Red Blood Count 4.37 M/mm3 (4.6-6.20); Red Cell Distribution Width 16.1 % (11.5-14.5); White Blood Count 6.8 K/mm3 (4.5-10.0)
[2021-05-15 18:02] LABS: Anion Gap 5 mmol/L (8-16); Blood Urea Nitrogen 14 mg/dL (9-20); Calcium 8.6 mg/dL (8.4-10.2); Carbon Dioxide 33 mmol/L (22-30); Chloride 100 mmol/L (98-107); Estimated Glomerular Filt Rate > 60; Glucose 103 mg/dL (65-110); Sodium 138 mmol/L (137-145)
[2021-05-15 18:11] LABS: Platelet Estimate Adequate (Adequate)
[2021-05-15 18:12] LABS: Hypochromasia 1+ (NORMAL)
[2021-05-15 19:44] LABS: Glucose Point of Care 116 mg/dl (65-105)
--- NOTE | 2021-05-15 20:16 | PC.NURSE ---
Pt arrived with roll gauze present with dried yellow drainage to both right lower leg and right foot. undressed by this RN. pt's right lower leg red, hot, with small areas of serous drainage present to dried 2x2 gauze pads in place. wet to dry gauze placed, then rewrapped with roll gauze. cms intact post tx. Pt's right foot unwrapped. toenails to right foot appear with dried blood/scabbing covering nail surfaces. no active bleeding. foot rewrapped with roll gauze. cms intact post tx.
--- NOTE | 2021-05-15 21:38 | ED.GENADULT ---
HPI - General Adult General Chief complaint: Fall Stated complaint: fall Time Seen by Provider: 05/15/21 16:42 History of Present Illness HPI narrative: Patient is a 65-year-old male who presents ER status post fall. Patient has a left lower extremity amputation has difficulty bearing weight. Reports he was sitting on the side of his bed and slid off of it several times today. Patient has chronic edema and wounds to right lower extremity that he reports is unchanged. Denies fevers or chills or sweats. Patient reports chronic shortness of breath and wears 4 L of oxygen chronically. No chest pain or chest pressure. Patient did strike his face when he fell. Denies loss of consciousness. He has contusions over his eyelid. Related Data Home Medications Medication Instructions Recorded Confirmed Therapeutic-M Vitamin/Minerals 1 tablet PO DAILY 11/14/19 03/03/21 acetaminophen [Acetaminophen Extra 500 mg PO Q6H PRN 11/14/19 03/03/21 Strength] ascorbic acid (vitamin C) 500 mg PO BID 11/14/19 03/03/21 ergocalciferol (vitamin D2) 50,000 unit PO WEEKLY 11/14/19 03/03/21 [Vitamin D2] escitalopram oxalate 5 mg PO DAILY 11/14/19 03/03/21 escitalopram oxalate 10 mg PO DAILY 11/14/19 03/03/21 gabapentin 600 mg PO TID 11/14/19 03/03/21 mirtazapine 30 mg PO HS 11/14/19 03/03/21 aspirin [Aspirin Low Dose] 81 mg PO DAILY 12/08/19 03/03/21 atorvastatin 10 mg PO HS 12/08/19 03/03/21 sennosides-docusate sodium 1 tab-cap PO DAILY 04/14/20 03/03/21 [Senexon-S] Biofreeze (menthol) 1 applic TOPICAL BID 04/15/20 03/03/21 sodium chloride [Saline Nasal Mist] 1 spray INTRANASAL Q4H PRN 04/15/20 03/03/21 Lantus U-100 Insulin 20 unit SUBCUT QAM 11/05/20 03/03/21 Lantus U-100 Insulin 80 unit SUBCUT HS 11/05/20 03/03/21 insulin aspart U-100 [Novolog 1 sliding scale dose SUBCUT 11/05/20 03/03/21 U-100 Insulin aspart] USEASDIRECTD insulin aspart U-100 [Novolog 35 unit SUBCUT AC 11/05/20 03/03/21 U-100 Insulin aspart] Victoza 2-Tushar 1.8 mg SUBCUT DAILY 03/03/21 03/03/21 benzonatate 100 mg PO TID PRN 03/03/21 03/03/21 buspirone 5 mg PO TID 03/03/21 03/03/21 metformin 1,000 mg PO BID 03/03/21 03/03/21 mupirocin 1 applic TOPICAL BID 03/03/21 03/03/21 tramadol 50 mg PO Q6H PRN 03/03/21 03/03/21 trazodone 150 mg PO HS PRN 03/03/21 03/03/21 Allergies Allergy/AdvReac Type Severity Reaction Status Date / Time Penicillins AdvReac Unknown Fever Verified 05/03/21 13:53 Review of Systems Review of Systems: All systems reviewed & are unremarkable except as noted in HPI and below Constitutional: Constitutional: Denies chills, Denies fever(s) and Reports weakness Eyes: Eyes: Denies change in vision and Denies photophobia Comments: Swelling right eyelid. ENT: Denies nasal congestion and Denies sore throat PMFSH Past Medical History Medical History Chronic anemia Chronic stasis dermatitis Coronary artery disease Depression with anxiety History of deep venous thrombosis Hypertension Insulin dependent type 2 diabetes mellitus Hemoglobin A1c 9.2 Obstructive sleep apnea Noncompliant with CPAP. Peripheral vascular disease Ventral hernia Chronic large left lower quadrant ventral hernia Surgical History Surgical History History of tonsillectomy Status post below-knee amputation of left lower extremity Status post herniorrhaphy Ventral hernia repair x3. Family History Family History Father , at age 69 Diabetes mellitus Family history of alcoholism Mother Diabetes mellitus Sibling Family history of emphysema Other Family history of cardiovascular disease Social History Social History Social History: The patient has been at [facility] for several years. Before that he was living w
[2021-05-15 22:10] LABS: Alveolar/Arterial O2 Gradient 76.8 mmHg; Base Excess ABG -0.6 mEq/l (+/-2.0); Carboxyhemoglobin 1.5 % THb (0-2.0); Fractional Inspired Oxygen 34 %; HCO3 ABG 30.9 mEq/l (22.0-26.0); Methemoglobin ABG 0.3 %THb (0-1.5); Oxygen Content ABG 14.5 %vol (16.0-22.0); Oxyhemoglobin 81.1 % THb (90.0-100.0); PO2 ABG 56.3 mmHg (80.0-100.0); PO2 FiO2 Ratio Arterial Blood 1.66 %; Reduced Hemoglobin 17.1 %THb (0-5.0); Total Hemoglobin 12.7 g/dL (12.0-18.0)
[2021-05-15 22:12] LABS: PCO2 ABG 93.8 mmHg (35.0-45.0); pH ABG 7.136 (7.350-7.450)
[2021-05-15 22:13] LABS: Device NASAL CANNULA; Liters per Minute 3.5 LPM; Modified Allen's Test Pass; Oxygen Saturation ABG 77.8 % (95.0-100.0); Site Drawn LEFT RADIAL
[2021-05-16] VITALS (23 sets, daily range): BP systolic 92–189; BP diastolic 48–86; PULSE 84–112; RESP 16–32; TEMP 36.1–36.6; O2SAT 94–100; BMI 52.0
--- NOTE | 2021-05-16 00:09 | PM.IMHP ---
H&P: HPI History of Present Illness Date/Time: 05/16/21 00:09 Chief Complaint: FALL Narrative: THIS IS A 65-YEAR-OLD MALE WITH PAST MEDICAL HISTORY SIGNIFICANT FOR MORBID OBESITY, LEFT BKA, CORONARY ARTERY DISEASE, RIGHT LOWER EXTREMITY FOOT ULCER AND CELLULITIS, TYPE 2 DIABETES MELLITUS INSULIN DEPENDENT, HYPERTENSION, CLOSTRIDIUM C DIFFICILE COLITIS RECENT ADMISSION FOR THIS REASON AND DISCHARGED HOME. PATIENT PRESENTED TODAY TO THE EMERGENCY ROOM AFTER HE HAS HAD SEVERAL FALLS AT HOME LAST ONE WITH BLUNT TRAUMA TO THE FACE. AT THE TIME OF MY VISIT PATIENT WAS ON BIPAP AND LETHARGIC MOST OF THE HISTORY HAS BEEN OBTAINED FROM THE EMERGENCY ROOM MEDICAL RECORDS WELL PRIOR RECORDS. ABG SHOWED A PH OF 7.135 A PCO2 OF 93 AND A PO2 OF 56 Review of Systems Review of Systems: PATIENT PRESENTED TO EMERGENCY ROOM AFTER HE HAD A FALL AT HOME AT THE TIME OF MY VISIT PATIENT WOUND WAS ON BIPAP AND UNABLE TO COMMUNICATE WELL LETHARGIC ROS unobtainable: Yes unobtainable due to medical condition PMFSH Past Medical History Medical History Chronic anemia Chronic stasis dermatitis Coronary artery disease Depression with anxiety History of deep venous thrombosis Hypertension Insulin dependent type 2 diabetes mellitus Hemoglobin A1c 9.2 Obstructive sleep apnea Noncompliant with CPAP. Peripheral vascular disease Ventral hernia Chronic large left lower quadrant ventral hernia Surgical History Surgical History History of tonsillectomy Status post below-knee amputation of left lower extremity Status post herniorrhaphy Ventral hernia repair x3. Family History Family History Father , at age 69 Diabetes mellitus Family history of alcoholism Mother Diabetes mellitus Sibling Family history of emphysema Other Family history of cardiovascular disease Social History Social History Social History: The patient has been at [facility] for several years. Before that he was living with his mother in [place]. He is on disability. He had 2 daughters, one at the age of 34 from an ID. He is a lifelong non-smoker. A former heavy drinker though he has abstained since moving to the rehab center. He denies illicit drug use. Patient wishes to be a full code. His [id number] is his mother, Nicolle Veloz. Drinks per week: 50 Gender identity (if verbalized by the patient): Male Meds Home Medications and Allergies Home Medications Medication Instructions Recorded Confirmed Type Therapeutic-M Vitamin/Minerals 1 tablet PO DAILY 11/14/19 03/03/21 History acetaminophen [Acetaminophen Extra 500 mg PO Q6H PRN 11/14/19 03/03/21 History Strength] ascorbic acid (vitamin C) 500 mg PO BID 11/14/19 03/03/21 History ergocalciferol (vitamin D2) 50,000 unit PO WEEKLY 11/14/19 03/03/21 History [Vitamin D2] escitalopram oxalate 5 mg PO DAILY 11/14/19 03/03/21 History escitalopram oxalate 10 mg PO DAILY 11/14/19 03/03/21 History gabapentin 600 mg PO TID 11/14/19 03/03/21 History mirtazapine 30 mg PO HS 11/14/19 03/03/21 History aspirin [Aspirin Low Dose] 81 mg PO DAILY 12/08/19 03/03/21 History atorvastatin 10 mg PO HS 12/08/19 03/03/21 History lisinopril 10 mg PO DAILY #0 tablet 12/11/19 03/03/21 Rx melatonin 3 mg PO HS 30 Days #30 tablet 12/11/19 03/03/21 Rx sennosides-docusate sodium 1 tab-cap PO DAILY 04/14/20 03/03/21 History [Senexon-S] Biofreeze (menthol) 1 applic TOPICAL BID 04/15/20 03/03/21 History sodium chloride [Saline Nasal Mist] 1 spray INTRANASAL Q4H PRN 04/15/20 03/03/21 History Lantus U-100 Insulin 20 unit SUBCUT QAM 11/05/20 03/03/21 History Lantus U-100 Insulin 80 unit SUBCUT HS 11/05/20 03/03/21 History insulin aspart U-100 [Novolog 1 slidin
--- NOTE | 2021-05-16 00:11 | PC.NURSE ---
Report to JUSTINA Zimmer on IMU. Room 231 not clean.
--- NOTE | 2021-05-16 01:41 | ADMIMU ---
This patient, Wing Veloz, was admitted to IMU status, and placed in IMU Room 231-01 on 05/16/21 at 0105. Patient/family oriented to hospital policies and general routines including ID bracelet, bed and alarms, visiting hours, pain management, procedures, bathroom and other care routines, personal items, smoking policy, room service/diet, and visiting hours. Information on how to activate the Rapid Response Team has been discussed. Patient/Family are encouraged to report perceived risks to care and to ask questions if they do not understand what they are told or what they should do.
[2021-05-16 05:59] LABS: Alveolar/Arterial O2 Gradient 157.5 mmHg; Base Excess ABG 2.7 mEq/l (+/-2.0); Carboxyhemoglobin 0.9 % THb (0-2.0); Fractional Inspired Oxygen 50 %; HCO3 ABG 34.1 mEq/l (22.0-26.0); Methemoglobin ABG 0.2 %THb (0-1.5); PO2 ABG 90.7 mmHg (80.0-100.0); PO2 FiO2 Ratio Arterial Blood 1.81 %; Reduced Hemoglobin 4.9 %THb (0-5.0); Total Hemoglobin 12.8 g/dL (12.0-18.0)
[2021-05-16 06:03] LABS: pH ABG 7.167 (7.350-7.450)
[2021-05-16 06:05] LABS: Device BIPAP; Modified Allen's Test Unable to perform; PCO2 ABG 96.3 mmHg (35.0-45.0); Site Drawn LEFT RADIAL
[2021-05-16 11:35] LABS: Basophils Percent Auto 0.3 % (0.2-1.2); Hematocrit 39.6 % (42.0-52.0); Hemoglobin 11.2 g/dL (14.0-18.0); Immature Granulocyte Absolute 0.07 K/mm3 (0.00-0.031); Immature Granulocyte Percent A 0.6 % (0-0.5); Lymphocytes Absolute Auto 0.47 K/mm3 (0.9-3.2); Mean Corpuscular HGB Conc 28.3 g/dl (32-36); Mean Corpuscular Hemoglobin 26.7 pg (26-34); Mean Corpuscular Volume 94.3 fl (80-100); Mean Platelet Volume 8.3 fl (7.4-10.4); Monocytes Absolute Auto 1.2 K/mm3 (0.1-0.6); Monocytes Percent Auto 10.4 % (2.6-8.5); Neutrophils Absolute Auto 9.9 K/mm3 (1.3-6.7); Neutrophils Percent Auto 84.7 % (45.5-73.1); Platelet Count Result 131 k/mm3 (150-375); White Blood Count 11.7 K/mm3 (4.5-10.0)
[2021-05-16 11:49] LABS: Anisocytosis 1+ (NORMAL); Basophilic Stippling 1+ (NORMAL); Hypochromasia 1+ (NORMAL); Lactic Acid Reflex 0.9 mmol/L (0.7-2.1); Platelet Estimate Adequate (Adequate); Stomatocytes 1+ (NORMAL)
[2021-05-16 11:53] LABS: Alanine Aminotransferase 21 U/L (4-50); Albumin Level 3.1 g/dL (3.5-5.1); Alkaline Phosphatase 84 U/L (38-126); Anion Gap 3 mmol/L (8-16); Aspartate Amino Transferase 29 U/L (17-59); Bilirubin,Total 0.4 mg/dL (0.2-1.3); Blood Urea Nitrogen 16 mg/dL (9-20); Calcium 8.5 mg/dL (8.4-10.2); Carbon Dioxide 30 mmol/L (22-30); Chloride 101 mmol/L (98-107); Estimated CRCL calculation 130 ml/min; Estimated Glomerular Filt Rate > 60; Glucose 184 mg/dL (65-110); Magnesium 1.7 mg/dL (1.6-2.3); Potassium 5.3 mmol/L (3.4-5.0); Sodium 134 mmol/L (137-145)
[2021-05-16 12:01] LABS: Troponin I < 0.012 ng/mL (0.000-0.034)
[2021-05-16 12:02] LABS: Alveolar/Arterial O2 Gradient 207.2 mmHg; Base Excess ABG 4.9 mEq/l (+/-2.0); Carboxyhemoglobin 0.6 % THb (0-2.0); Fractional Inspired Oxygen 50 %; HCO3 ABG 33.5 mEq/l (22.0-26.0); Methemoglobin ABG 0.2 %THb (0-1.5); Oxygen Saturation ABG 91.3 % (95.0-100.0); Oxyhemoglobin 92.8 % THb (90.0-100.0); PO2 ABG 69.3 mmHg (80.0-100.0); PO2 FiO2 Ratio Arterial Blood 1.39 %; Reduced Hemoglobin 6.4 %THb (0-5.0); Total Hemoglobin 12.2 g/dL (12.0-18.0)
[2021-05-16 12:04] LABS: Device NON-INVASIVE VENT; Modified Allen's Test Pass; PCO2 ABG 71.1 mmHg (35.0-45.0); Site Drawn RIGHT RADIAL; pH ABG 7.291 (7.350-7.450)
[2021-05-16 12:05] LABS: Non-Invasive Expiratory Pressure 10 CMH2O; Non-Invasive Inspiratory Pressure 20 CMH2O; Non-Invasive Vent Rate 20 /MIN
--- NOTE | 2021-05-16 15:23 | PM.IMPN ---
Progress Note: A&P Assessment and Plan (1) Acute hypercapnic respiratory failure: Code(s): J96.02 - Acute respiratory failure with hypercapnia Status: Acute Assessment and Plan: PATIENT IS CURRENTLY ON BIPAP CONTINUES BIPAP REPEAT ABG IN A.M. (2) Closed fracture nasal bone: Code(s): S02.2XXA - Fracture of nasal bones, initial encounter for closed fracture Status: Acute Assessment and Plan: SUPPORTIVE CARE CONTINUE TO MONITOR (3) Facial hematoma: Code(s): S00.83XA - Contusion of other part of head, initial encounter Status: Acute Assessment and Plan: SUPPORTIVE CARE CONTINUE TO MONITOR (4) Obstructive sleep apnea: Code(s): G47.33 - Obstructive sleep apnea (adult) (pediatric) Status: Acute Assessment and Plan: NONCOMPLIANCE WITH CPAP CURRENTLY ON CONTINUES BIPAP (5) Coronary artery disease: Code(s): I25.10 - Atherosclerotic heart disease of [place] coronary artery without angina pectoris Status: Acute Assessment and Plan: CHEST PAIN-FREE CONTINUE TO MONITOR (6) Morbid obesity: Onset Date: Unknown Code(s): E66.01 - Morbid (severe) obesity due to excess calories Status: Acute Assessment and Plan: LIFESTYLE AND DIET MODIFICATION NPO CURRENTLY (7) Below-knee amputation of left lower extremity with complication: Code(s): S88.112A - Complete traumatic amputation at level between knee and ankle, left lower leg, initial encounter Status: Acute Assessment and Plan: FOR PRECAUTIONS (8) Hypertension: Qualifiers: Hypertension type: essential hypertension Qualified Code(s): I10 - Essential (primary) hypertension Code(s): I10 - Essential (primary) hypertension Status: Acute Assessment and Plan: CONTINUE TO MONITOR (9) Altered mental status: Code(s): R41.82 - Altered mental status, unspecified Status: Acute Assessment and Plan: LIKELY SECONDARY TO HYPERCAPNIA STARTED ON BROAD-SPECTRUM ANTIBIOTICS EMPIRICALLY BLOOD CULTURES SENT PATIENT WITH RECENT HOSPITALIZATION PATIENT ALSO WITH OPEN WOUNDS IN HIS RIGHT LOWER EXTREMITY CONTINUE TO MONITOR Subjective Date/time seen: 05/16/21 15:23 Objective Data Vital Signs Vital Signs: Vital Signs - 24 hr 05/15/21 16:35 05/15/21 17:02 05/15/21 17:50 Temperature Pulse Rate 102 H 99 Respiratory Rate 21 H 14 20 Blood Pressure 130/74 115/76 Pulse Oximetry 98 99 99 05/15/21 18:00 05/15/21 19:02 05/15/21 19:49 Temperature Pulse Rate 101 H 99 106 H Respiratory Rate 24 H 12 18 Blood Pressure 133/66 128/63 114/37 L Pulse Oximetry 98 98 94 05/15/21 20:42 05/15/21 21:04 05/15/21 21:15 Temperature Pulse Rate 106 H 102 H 106 H Respiratory Rate 24 H 22 H 20 Blood Pressure Pulse Oximetry 94 05/15/21 21:32 05/15/21 21:47 05/15/21 22:02 Temperature Pulse Rate 105 H 103 H 104 H Respiratory Rate 24 H 24 H 25 H Blood Pressure 145/76 H Pulse Oximetry 05/15/21 22:17 05/15/21 22:20 05/15/21 22:32 Temperature Pulse Rate 107 H 98 99 Respiratory Rate 26 H 19 19 Blood Pressure Pulse Oximetry 96 100 05/15/21 22:43 05/15/21 22:45 05/15/21 22:46 Temperature Pulse Rate 91 93 Respiratory Rate 15 15 16 Blood Pressure 115/60 Pulse Oximetry 100 100 05/15/21 23:00 05/15/21 23:01 05/15/21 23:15 Temperature Pulse Rate 91 92 89 Respiratory Rate 16 16 17 Blood Pressure 140/73 Pulse Oximetry 100 05/15/21 23:16 05/15/21 23:30 05/15/21 23:31 Temperature Pulse Rate 89 93 90 Respiratory Rate 16 18 16 Blood Pressure 118/66 131/76 Pulse Oximetry 05/15/21 23:45 05/15/21 23:46 05/16/21 00:00 Temperature Pulse Rate 96 93 93 Respiratory Rate 19 16 18 Blood Pressure 147/83 H Pulse Oximetry 05/16/21 00:01 05/16/21 00:02 05/16/21 00:16 Temperature Pulse Rate 94 93 93 Respiratory Rat
--- NOTE | 2021-05-16 15:25 | PM.EVENT ---
Event Note Event Note Event Note: patient admitted this morning by my colleague. Afternoon rounding to assess patient's progress. CO2 slowly down trending and and pH improving. cont current care pt alert now but remains disoriented
[2021-05-16 17:36] LABS: Alveolar/Arterial O2 Gradient 185.7 mmHg; Base Excess ABG 5.4 mEq/l (+/-2.0); Carboxyhemoglobin 0.6 % THb (0-2.0); Fractional Inspired Oxygen 50 %; HCO3 ABG 33.7 mEq/l (22.0-26.0); Methemoglobin ABG 0.3 %THb (0-1.5); Oxygen Content ABG 16.4 %vol (16.0-22.0); Oxygen Saturation ABG 96.1 % (95.0-100.0); Oxyhemoglobin 95.5 % THb (90.0-100.0); PO2 ABG 92.5 mmHg (80.0-100.0); PO2 FiO2 Ratio Arterial Blood 1.85 %; Reduced Hemoglobin 3.6 %THb (0-5.0); Total Hemoglobin 12.1 g/dL (12.0-18.0); pH ABG 7.303 (7.350-7.450)
[2021-05-16 17:39] LABS: Device NON-INVASIVE VENT; Modified Allen's Test Pass; PCO2 ABG 69.6 mmHg (35.0-45.0); Site Drawn LEFT RADIAL
[2021-05-16 17:40] LABS: Non-Invasive Expiratory Pressure 10 CMH2O; Non-Invasive Inspiratory Pressure 20 CMH2O; Non-Invasive Vent Rate 20 /MIN
[2021-05-16] MEDS: LORazepam INJ (*CRX) 2 MG/ML VIAL 1 MG IV PUSH (18:50)
[2021-05-16 20:59] LABS: Glucose Point of Care 202 mg/dl (65-105)
[2021-05-16] MEDS: INSULIN GLARGINE (*BKC) 100 UNITS/ML 40 UNITS SUB-Q (21:11)
[2021-05-16] MEDS: MUPIROCIN 2% OINT 22 GM TUBE 1 APPLIC TOPICAL (21:13)
[2021-05-17] VITALS (20 sets, daily range): BP systolic 90–128; BP diastolic 44–56; PULSE 77–120; RESP 20–30; TEMP 36.2–36.9; O2SAT 92–99
[2021-05-17 05:08] LABS: Alveolar/Arterial O2 Gradient 156.2 mmHg; Base Excess ABG 5.8 mEq/l (+/-2.0); Carboxyhemoglobin 0.3 % THb (0-2.0); Fractional Inspired Oxygen 50 %; HCO3 ABG 33.5 mEq/l (22.0-26.0); Methemoglobin ABG 0.3 %THb (0-1.5); Oxygen Content ABG 14.9 %vol (16.0-22.0); Oxygen Saturation ABG 98.2 % (95.0-100.0); Oxyhemoglobin 96.9 % THb (90.0-100.0); PO2 ABG 126.1 mmHg (80.0-100.0); PO2 FiO2 Ratio Arterial Blood 2.52 %; Reduced Hemoglobin 2.5 %THb (0-5.0); Total Hemoglobin 10.8 g/dL (12.0-18.0); pH ABG 7.323 (7.350-7.450)
[2021-05-17 05:10] LABS: Device NON-INVASIVE VENT; Modified Allen's Test Pass; Site Drawn RIGHT RADIAL
[2021-05-17 05:11] LABS: Non-Invasive Expiratory Pressure 10 CMH2O; Non-Invasive Inspiratory Pressure 20 CMH2O; Non-Invasive Vent Rate 20 /MIN
[2021-05-17 06:13] LABS: Basophils Percent Auto 0.1 % (0.2-1.2); Eosinophils Percent Auto 0.1 % (0-4.4); Hematocrit 36.6 % (42.0-52.0); Hemoglobin 10.5 g/dL (14.0-18.0); Immature Granulocyte Absolute 0.08 K/mm3 (0.00-0.031); Immature Granulocyte Percent A 0.6 % (0-0.5); Lymphocytes Absolute Auto 1.52 K/mm3 (0.9-3.2); Lymphocytes Percent Auto 11.1 % (18.3-44.2); Mean Corpuscular HGB Conc 28.7 g/dl (32-36); Mean Corpuscular Hemoglobin 26.7 pg (26-34); Mean Corpuscular Volume 93.1 fl (80-100); Mean Platelet Volume 8.5 fl (7.4-10.4); Monocytes Absolute Auto 1.2 K/mm3 (0.1-0.6); Monocytes Percent Auto 8.9 % (2.6-8.5); Neutrophils Absolute Auto 10.8 K/mm3 (1.3-6.7); Neutrophils Percent Auto 79.2 % (45.5-73.1); Platelet Count Result 126 k/mm3 (150-375); Red Blood Count 3.93 M/mm3 (4.6-6.20); Red Cell Distribution Width 16.1 % (11.5-14.5); White Blood Count 13.6 K/mm3 (4.5-10.0)
[2021-05-17 06:56] LABS: Anion Gap 6 mmol/L (8-16); Anisocytosis 2+ (NORMAL); Blood Urea Nitrogen 28 mg/dL (9-20); Calcium 8.5 mg/dL (8.4-10.2); Carbon Dioxide 31 mmol/L (22-30); Chloride 97 mmol/L (98-107); Estimated CRCL calculation 58 ml/min; Estimated Glomerular Filt Rate 36; Glucose 162 mg/dL (65-110); Magnesium 1.8 mg/dL (1.6-2.3); Poikilocytosis 1+ (NORMAL); Potassium 5.3 mmol/L (3.4-5.0); Sodium 134 mmol/L (137-145)
[2021-05-17 07:15] LABS: CRP 15.5 mg/dL (<1.0)
[2021-05-17 07:35] LABS: Glucose Point of Care 155 mg/dl (65-105)
[2021-05-17] MEDS: lisinopriL 10 MG TABLET PO (09:49)
[2021-05-17] MEDS: ASPIRIN 81 MG ENTERIC TABLET PO (09:50)
[2021-05-17] MEDS: BENZONATATE 100 MG CAPSULE PO (09:50)
[2021-05-17] MEDS: SENNA/DOCUSATE SODIUM TABLET 1 TAB PO (09:51)
[2021-05-17] MEDS: PANTOPRAZOLE SOD SESQUIHYDRATE 20 MG TAB PO (09:52)
[2021-05-17] MEDS: ESCITALOPRAM OXALATE 10 MG TABLET PO (09:52)
[2021-05-17] MEDS: buPROPion HCL XL (24 HR) 150 MG TABCR PO (09:52)
[2021-05-17] MEDS: GABAPENTIN 300 MG CAPSULE 600 MG PO ×2 (09:53→14:34)
[2021-05-17] MEDS: THERAPEUTIC MULTIVITAMINS/MINERALS TAB (*BKC) 1 TABLET PO (09:54)
[2021-05-17] MEDS: busPIRone HCL 5 MG TABLET PO ×2 (09:54→14:34)
[2021-05-17] MEDS: ASCORBIC ACID 500 MG TABLET PO (09:56)
[2021-05-17] MEDS: CYANOCOBALAMIN 1,000 MCG TABLET 1000 MCG PO (09:56)
[2021-05-17] MEDS: ESCITALOPRAM OXALATE 5 MG TABLET PO (09:57)
[2021-05-17] MEDS: TOLNAFTATE 1% POWDER 45 GM BTL 1 APPLIC TOPICAL ×2 (09:59→20:23)
[2021-05-17] MEDS: MUPIROCIN 2% OINT 22 GM TUBE 1 APPLIC TOPICAL ×2 (10:00→20:23)
[2021-05-17] MEDS: INSULIN GLARGINE (*BKC) 100 UNITS/ML 40 UNITS SUB-Q (10:09)
[2021-05-17] MEDS: LORazepam INJ (*CRX) 2 MG/ML VIAL 1 MG IV PUSH (10:35)
[2021-05-17 11:52] LABS: Glucose Point of Care 138 mg/dl (65-105)
--- NOTE | 2021-05-17 12:46 | PM.IMPN ---
Progress Note: A&P Assessment and Plan (1) Acute hypercapnic respiratory failure: Code(s): J96.02 - Acute respiratory failure with hypercapnia Status: Acute Assessment and Plan: PATIENT IS CURRENTLY ON BIPAP CONTINUES BIPAP REPEAT ABG IN A.M. (2) Closed fracture nasal bone: Code(s): S02.2XXA - Fracture of nasal bones, initial encounter for closed fracture Status: Acute Assessment and Plan: SUPPORTIVE CARE CONTINUE TO MONITOR (3) Facial hematoma: Code(s): S00.83XA - Contusion of other part of head, initial encounter Status: Acute Assessment and Plan: SUPPORTIVE CARE CONTINUE TO MONITOR (4) Obstructive sleep apnea: Code(s): G47.33 - Obstructive sleep apnea (adult) (pediatric) Status: Acute Assessment and Plan: NONCOMPLIANCE WITH CPAP CURRENTLY ON CONTINUES BIPAP (5) Coronary artery disease: Code(s): I25.10 - Atherosclerotic heart disease of [place] coronary artery without angina pectoris Status: Acute Assessment and Plan: CHEST PAIN-FREE CONTINUE TO MONITOR (6) Morbid obesity: Onset Date: Unknown Code(s): E66.01 - Morbid (severe) obesity due to excess calories Status: Acute Assessment and Plan: LIFESTYLE AND DIET MODIFICATION NPO CURRENTLY (7) Below-knee amputation of left lower extremity with complication: Code(s): S88.112A - Complete traumatic amputation at level between knee and ankle, left lower leg, initial encounter Status: Acute Assessment and Plan: FOR PRECAUTIONS (8) Hypertension: Qualifiers: Hypertension type: essential hypertension Qualified Code(s): I10 - Essential (primary) hypertension Code(s): I10 - Essential (primary) hypertension Status: Acute Assessment and Plan: CONTINUE TO MONITOR (9) Altered mental status: Code(s): R41.82 - Altered mental status, unspecified Status: Acute Assessment and Plan: LIKELY SECONDARY TO HYPERCAPNIA STARTED ON BROAD-SPECTRUM ANTIBIOTICS EMPIRICALLY BLOOD CULTURES SENT PATIENT WITH RECENT HOSPITALIZATION PATIENT ALSO WITH OPEN WOUNDS IN HIS RIGHT LOWER EXTREMITY CONTINUE TO MONITOR 05/17/2021 will continue current plan of care treatment. Continue with BiPAP support. Treat hyperkalemia. Monitor CBC and BMP in the morning. Subjective Date/time seen: 05/17/21 12:46 Patient was seen during the morning rounds today. Patient is slightly more alert. Patient still requiring BiPAP. Mild shortness of breath. No chest pain. No abdominal pain, no nausea, no vomiting. Mood stable Review of Systems Review of Systems: ROS unobtainable: Yes unobtainable due to medical condition Exam Const: General: no acute distress, ill appearing acutely and patient obtunded Nutritional Appearance: obese morbidly obese, overweight and other Orientation/consciousness: patient obtunded HENMT: Head: normal to inspection, normocephalic and other ( RIGHT EYE HEMATOMA) Ears: hearing grossly normal bilaterally Face and sinus: normal facial exam and other ( BIPAP MASK ON) Eyes: Alignment and Position: alignment normal Periorbital: periorbital findings normal ( RIGHT EYE HEMATOMA) Sclera: sclerae normal Pupils: Equal, round and reactive pupils present EOM: EOMs intact bilaterally Neck: Neck: full ROM, no lymphadenopathy and no JVD Thyroid: thyroid normal Lymphatic: no lymphadenopathy noted Resp: Effort & Inspection: normal respiratory effort and other ( ON BIPAP) Auscultation: clear to auscultation bilaterally, no crackles, no rales, no rhonchi and diminished lung sounds Cardio: Jugular venous distension: no JVD Rate: regular rate Rhythm: regular rhythm Heart sounds: S1 normal heart sound present and S2 normal heart sound present GI: Inspection: Pannus present and obesity : General: Yes deferred Skin: General skin exam: crusts, erythema and other ( RIGHT LOWER
[2021-05-17 14:10] LABS: Vancomycin Trough 32.3 ug/mL (10.0-20.0)
[2021-05-17] MEDS: SODIUM POLYSTYRENE SULFONONATE 15 GM/60 ML BTL PO (14:35)
[2021-05-17 17:00] LABS: Glucose Point of Care 95 mg/dl (65-105)
[2021-05-17] MEDS: HEPARIN SODIUM 5,000 UNITS/ML VIAL 5000 UNITS SUB-Q (20:23)
[2021-05-17] MEDS: MIRTAZAPINE 30 MG TABLET PO (20:23)
[2021-05-17] MEDS: ATORVASTATIN 10 MG TABLET PO (20:23)
[2021-05-17] MEDS: MELATONIN 3 MG TABLET PO (20:23)
[2021-05-17 21:25] LABS: Glucose Point of Care 76 mg/dl (65-105)
[2021-05-18] VITALS (26 sets, daily range): BP systolic 81–138; BP diastolic 46–97; PULSE 73–99; RESP 18–24; TEMP 35.7–36.6; O2SAT 91–99
[2021-05-18 00:11] LABS: Glucose Point of Care 58 mg/dl (65-105)
[2021-05-18] MEDS: DEXTROSE 50% 25 GM/50 ML SYRINGE IV PUSH ×2 (00:13→05:14)
[2021-05-18 01:16] LABS: Glucose Point of Care 86 mg/dl (65-105)
[2021-05-18 05:14] LABS: Glucose Point of Care 55 mg/dl (65-105)
[2021-05-18 06:12] LABS: Glucose Point of Care 81 mg/dl (65-105)
[2021-05-18 08:40] LABS: Glucose Point of Care 75 mg/dl (65-105)
[2021-05-18] MEDS: CYANOCOBALAMIN 1,000 MCG TABLET 1000 MCG PO (08:54)
[2021-05-18] MEDS: ASCORBIC ACID 500 MG TABLET PO ×2 (08:55→17:29)
[2021-05-18] MEDS: ESCITALOPRAM OXALATE 10 MG TABLET PO (08:55)
[2021-05-18] MEDS: lisinopriL 10 MG TABLET PO (08:55)
[2021-05-18] MEDS: ESCITALOPRAM OXALATE 5 MG TABLET PO (08:55)
[2021-05-18] MEDS: THERAPEUTIC MULTIVITAMINS/MINERALS TAB (*BKC) 1 TABLET PO (08:55)
[2021-05-18] MEDS: buPROPion HCL XL (24 HR) 150 MG TABCR PO (08:55)
[2021-05-18] MEDS: busPIRone HCL 5 MG TABLET PO ×3 (08:55→17:29)
[2021-05-18] MEDS: GABAPENTIN 300 MG CAPSULE 600 MG PO (08:56)
[2021-05-18] MEDS: SENNA/DOCUSATE SODIUM TABLET 1 TAB PO (08:56)
[2021-05-18] MEDS: ERGOCALCIFEROL 50,000 UNIT CAPSULE 50000 UNITS PO (08:56)
[2021-05-18] MEDS: HEPARIN SODIUM 5,000 UNITS/ML VIAL 5000 UNITS SUB-Q ×2 (08:56→20:31)
[2021-05-18] MEDS: PANTOPRAZOLE SOD SESQUIHYDRATE 20 MG TAB PO (08:56)
[2021-05-18] MEDS: TOLNAFTATE 1% POWDER 45 GM BTL 1 APPLIC TOPICAL ×2 (08:57→20:30)
[2021-05-18] MEDS: ASPIRIN 81 MG ENTERIC TABLET PO (10:00)
[2021-05-18] MEDS: MUPIROCIN 2% OINT 22 GM TUBE 1 APPLIC TOPICAL ×2 (10:30→20:30)
[2021-05-18 10:32] LABS: Hematocrit 37.3 % (42.0-52.0); Hemoglobin 10.8 g/dL (14.0-18.0); Mean Corpuscular Hemoglobin 26.4 pg (26-34); Mean Corpuscular Volume 91.2 fl (80-100); Mean Platelet Volume 8.6 fl (7.4-10.4); Platelet Count Result 139 k/mm3 (150-375); Red Blood Count 4.09 M/mm3 (4.6-6.20); Red Cell Distribution Width 16.3 % (11.5-14.5); White Blood Count 11.4 K/mm3 (4.5-10.0)
[2021-05-18 10:49] LABS: Alanine Aminotransferase 20 U/L (4-50); Albumin Level 3.2 g/dL (3.5-5.1); Alkaline Phosphatase 158 U/L (38-126); Anion Gap 9 mmol/L (8-16); Aspartate Amino Transferase 35 U/L (17-59); Bilirubin,Total 0.4 mg/dL (0.2-1.3); Blood Urea Nitrogen 42 mg/dL (9-20); Calcium 8.6 mg/dL (8.4-10.2); Carbon Dioxide 30 mmol/L (22-30); Chloride 98 mmol/L (98-107); Estimated CRCL calculation 26 ml/min; Estimated Glomerular Filt Rate 14; Glucose 70 mg/dL (65-110); Potassium 4.5 mmol/L (3.4-5.0); Sodium 137 mmol/L (137-145)
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
--- NOTE | 2021-05-18 11:41 | PM.IMPN ---
Progress Note: A&P Assessment and Plan (1) Acute on chronic respiratory failure with hypoxia and hypercapnia: Code(s): J96.21 - Acute and chronic respiratory failure with hypoxia; J96.22 - Acute and chronic respiratory failure with hypercapnia Status: Acute Assessment and Plan: CXR on admission showing stable appearance of prominent bilateral paracardial fat pads and mild lingular atelectasis but no acute cardiopulmonary disease. ABG 7.136/94/56 on 3.5L on admission. NIV started and ABG yesterday 7.32/66/126. Patietn feeling much better. BiPAP removed due to his improvement and that he has nasal fractures. Hold on resuming until cleared by ENT. Respiratory failure related to TAWANDA but he is wheezing now. CXR reviewed today showing increasing perihilar predominant opacities in the right lung and opacities in the left lower lung zone. Could be pulm edema but can not give Lasix. Consider PNA but WBC normal and now fevers. He has had a cough. BCx NGTD. Check sputum. Will hold IV abx for now given the REJI. Add nebs. (2) REJI (acute kidney injury): Code(s): N17.9 - Acute kidney failure, unspecified Status: Acute Assessment and Plan: Cr 0.8 on admission. No contrast exposure. BP soft at times but Cr rise began before the HoTN. AIN from abx? Related to the severe respiratory failure as ATN? Check Urine eos and Renal US. Nephrolgoy consult especially given how fast the rise. Guerrero repositoned and flushed without much output - still could be false tracked. Add IV fluids. Stop ADAMARIS inhibitor. (3) Altered mental status: Code(s): R41.82 - Altered mental status, unspecified Status: Acute Assessment and Plan: CT brain showing no acute intracranial abnormalities. AMS felt related to the hypercapnia. Mental status has returned to baseline. Continue current respiratory care. (4) Closed fracture nasal bone: Code(s): S02.2XXA - Fracture of nasal bones, initial encounter for closed fracture Status: Acute Assessment and Plan: Patient had a fall most likely related to his respiratory failure. CT scan shows bilateral nasal bone fractures and right periorbital hematoma. BiPAP was stopped due to the concern about the nasal fractures. Pulmonary recommends ENT consult which was placed. Continue supportive care. (5) Facial hematoma: Code(s): S00.83XA - Contusion of other part of head, initial encounter Status: Acute Assessment and Plan: Secondary to fall and nasal fracture. Supportive care. (6) Obstructive sleep apnea: Code(s): G47.33 - Obstructive sleep apnea (adult) (pediatric) Status: Acute Assessment and Plan: Notes state patient is noncompliant with NIV. Patient states he has never been offered NIV at the facility even though he has a long history of sleep apnea. Plan for NIV at discharge if able given his nasal fracture. (7) Insulin dependent type 2 diabetes mellitus: Code(s): E11.9 - Type 2 diabetes mellitus without complications; Z79.4 - oysterman (current) use of insulin Status: Acute Assessment and Plan: A1c 9.2 in February. The patient's blood glucose was reviewed on 05/18 Glucose remains too well controlled. Lantus held this morning. Continue AccuCheks covering with sliding scale. Hypoglycemia protocol available as needed. Cut lantus in half. (8) Coronary artery disease: Code(s): I25.10 - Atherosclerotic heart disease of [place] coronary artery without angina pectoris Status: Acute Assessment and Plan: stable. Continue Lipitor and aspirin. (9) Morbid obesity: Onset Date: Unknown Code(s): E66.01 - Morbid (severe) obesity due to excess calories Status: Acute Assessment and Plan: BMI 53. Continue heart healthy diet. Encourage healthy lifestyle choices (10) Below-knee amputation of left lower extremity with complication: Co
[2021-05-18 12:39] LABS: Glucose Point of Care 117 mg/dl (65-105)
[2021-05-18] MEDS: SODIUM CHLORIDE 0.9% IV 1,000 ML 80 ML IV CONT (13:58)
[2021-05-18] MEDS: ALBUTEROL SULFATE NEB 2.5 MG/0.5 ML INH INHALATION ×2 (14:12→20:18)
[2021-05-18 14:55] LABS: Expiratory Pressure 8 cmH2O; Inspiratory Pressure 18 cmH2O
[2021-05-18 15:48] LABS: CRP 7.2 mg/dL (<1.0); Creatine Kinase 133 U/L (55-170)
[2021-05-18 15:52] LABS: Complement C3 124 mg/dL (88-165)
--- NOTE | 2021-05-18 16:09 | PM.PNGS ---
Progress Note: A&P Assessment and Plan (1) Acute on chronic respiratory failure with hypoxia and hypercapnia: Code(s): J96.21 - Acute and chronic respiratory failure with hypoxia; J96.22 - Acute and chronic respiratory failure with hypercapnia Status: Acute Assessment and Plan: will plan on seeing patient in a.m. of 05/19/2021. There is no way I could verify the patient's ability to use CPAP and/or BiPAP. Per my read in the radiologist read there are no orbital nor skull base fractures. There is always a risk that these fractures could have been missed by both of us or that they are so small they are not picked up by the thin cut CT. The final decision will have to be made by the ICU. I personally do not see any fractures of the skull base or orbit and think it is appropriate and acceptable for the patient to be on positive pressure if required. I would stop with any neurologic worsening /changes or facial orbital changes such as of excess amount of air in the orbits or face. (2) Closed fracture nasal bone: Code(s): S02.2XXA - Fracture of nasal bones, initial encounter for closed fracture Status: Acute Subjective Subjective Date/Time Seen: 05/18/21 16:09 Objective Data Vital Signs Vital Signs: Vital Signs - 24 hr 05/17/21 18:00 05/17/21 20:00 05/17/21 21:14 Temperature 36.6 C Pulse Rate 81 88 77 Respiratory Rate 21 H Blood Pressure 92/51 L Pulse Oximetry 92 96 05/17/21 22:00 05/18/21 00:00 05/18/21 01:57 Temperature 36.6 C Pulse Rate 78 77 73 Respiratory Rate 22 H Blood Pressure 81/46 L Pulse Oximetry 95 05/18/21 04:00 05/18/21 04:01 05/18/21 06:00 Temperature 36.5 C Pulse Rate 78 73 85 Respiratory Rate 22 H 24 H Blood Pressure 102/53 L Pulse Oximetry 97 94 05/18/21 07:55 05/18/21 08:41 05/18/21 12:30 Temperature 35.7 C L Pulse Rate 85 99 Respiratory Rate 22 H 21 H Blood Pressure 118/79 Pulse Oximetry 93 91 97 05/18/21 12:54 05/18/21 12:55 05/18/21 14:15 Temperature 36.0 C L Pulse Rate 85 86 Respiratory Rate 24 H 20 Blood Pressure 138/97 H Pulse Oximetry 99 96 05/18/21 14:25 Temperature Pulse Rate 87 Respiratory Rate 20 Blood Pressure Pulse Oximetry Intake/Output Intake/Output: Intake & Output 05/15/21 05/16/21 05/17/21 05/18/21 23:59 23:59 23:59 23:59 Intake Total 1200 850 340 Output Total 200 0 Balance 1200 650 340 Meds/Results Medications: Active Medications Generic Name Dose Route Start Last Admin Trade Name Freq PRN Reason Stop Dose Admin Acetaminophen 650 mg 05/15/21 22:45 Acetaminophen 325 Mg Tablet PO Q4H PRN Mild Pain (1-3) or Fever Hydrocodone Bitart/Acetaminophen 1 tab 05/15/21 22:45 Hydrocodone/Acetaminophen (*Crx) 5-325 Mg Tablet PO Q4H PRN Pain Rated 4-6 Albuterol 2.5 mg 05/18/21 14:00 05/18/21 14:12 Albuterol Sulfate Neb 2.5 Mg/0.5 Ml Inh INHALATION 2.5 mg Q6HRT PAULIE Administration Ascorbic Acid 500 mg 05/17/21 09:00 05/18/21 08:55 Ascorbic Acid 500 Mg Tablet PO 500 mg BID PAULIE Administration Aspirin 81 mg 05/17/21 09:00 05/18/21 10:00 Aspirin 81 Mg Enteric Tablet PO 81 mg DAILY PAULIE Administration Atorvastatin Calcium 10 mg 05/16/21 21:00 05/17/21 20:23 Atorvastatin 10 Mg Tablet PO 10 mg HS PAULIE Administration Benzonatate 100 mg 05/16/21 17:23 05/17/21 09:50 Benzonatate 100 Mg Capsule PO 100 mg TID PRN Administration Cough Bupropion HCl 150 mg 05/17/21 09:00 05/18/21 08:55 Bupropion Hcl Xl (24 Hr) 150 Mg Tabcr PO 150 mg DAILY PAULIE Administration Buspirone HCl 5 mg 05/17/21 09:00 05/18/21 13:58 Buspirone Hcl 5 Mg Tablet PO 5 mg TID PAULIE Administration Clotrimazole 1 applic 05/16/21 21:00 05/18/21 08:57 Clotrimazole/Betamet Dip Lot 30 Ml TOPICAL 1 applic Q12HR PAULIE Administration Cyanocobalamin 1,000 mcg 05/17/21 09:00 05/18/21 08:54 Cyanocobal
[2021-05-18 16:43] LABS: Glucose Point of Care 176 mg/dl (65-105)
--- NOTE | 2021-05-18 17:51 | PM.CNNEP ---
Assessment and Plan Assessment and plan (1) REJI (acute kidney injury): Code(s): N17.9 - Acute kidney failure, unspecified Status: Acute Assessment and Plan: Jimenez has acute kidney injury. This is on top of normal kidney function the patient has a few issues which might be playing a role. He has got a facial rash. I am not exactly sure what is causing this. I am not sure of this is related to his trauma or a reaction to some medication. He received a short course of antibiotics while here but I doubt of this is a reaction to those. Vancomycin plus Zosyn has been implicated in renal failure but usually it is not this severe with such a rapid rise in creatinine. It is more of an indolent course which is non oliguric. Obstruction is always a possibility when urine output is so low but his renal ultrasound shows no hydro and the bladder is empty. Glomerulonephritis is always a possibility. That would be unusual in this clinical scenario. Vascular disease would be unusual. He does not have any flank pain. He has no hematuria. His liver enzymes would be elevated if he had an arterial thrombus. In addition both kidneys would have to be involved. The ultrasound shows no edema of the renal parenchyma to suggest this either. Over control of blood pressure is a possibility. His blood pressure was very high when he came in. Possibly his blood pressures been like this all along and in the last few days his systolic has been low. His first systolic in the 90s was on the day before his creatinine began to rise. we can check a cortisoland TSH. rhabdomyolysis could occur as well. Will check a CPK At this point will check urine electrolytes. The renal ultrasound is already done. He is getting IV fluids right now however his chest x-ray looks suspicious for fluid overload so I am going to stop this. I am going to give him some midodrine to help get his blood pressure back up while his ADAMARIS-inhibitor wears off. we can also check an echocardiogram to make sure that he does not have a poorly functioning ventricle as well I will stop his pantoprazole and switch to famotidine in case he is having a reaction to that medication. (2) Acute on chronic respiratory failure with hypoxia and hypercapnia: Code(s): J96.21 - Acute and chronic respiratory failure with hypoxia; J96.22 - Acute and chronic respiratory failure with hypercapnia Status: Acute Assessment and Plan: The patient has morbid obesity and sleep apnea. (3) Closed fracture nasal bone: Code(s): S02.2XXA - Fracture of nasal bones, initial encounter for closed fracture Status: Acute Assessment and Plan: Supportive care (4) Hypertension: Qualifiers: Hypertension type: essential hypertension Qualified Code(s): I10 - Essential (primary) hypertension Code(s): I10 - Essential (primary) hypertension Status: Acute Assessment and Plan: holding on blood pressure med (5) Obstructive sleep apnea: Code(s): G47.33 - Obstructive sleep apnea (adult) (pediatric) Status: Acute (6) Coronary artery disease: Code(s): I25.10 - Atherosclerotic heart disease of [place] coronary artery without angina pectoris Status: Acute Assessment and Plan: is no chest pain currently (7) Insulin dependent type 2 diabetes mellitus: Code(s): E11.9 - Type 2 diabetes mellitus without complications; Z79.4 - MCFP (current) use of insulin Status: Acute Assessment and Plan: on Accu-Cheks and sliding-scale insulin History of Present Illness Reason for Consult Consult date: 05/18/21 Chief Complaint Chief complaint: hypercapnic respiratory failure, nasal bone fractu History of Present Illness Narrative: Carlyle is a very pleasant 65-year-old gentleman who has multiple medical problems including obesity, sleep apnea but he does not use a machine because it broke,
[2021-05-18 19:14] LABS: Creatine Kinase 113 U/L (55-170)
[2021-05-18 19:23] LABS: Complement C3 125 mg/dL (88-165)
[2021-05-18 20:12] LABS: Glucose Point of Care 181 mg/dl (65-105)
[2021-05-18] MEDS: MELATONIN 3 MG TABLET PO (20:31)
[2021-05-18] MEDS: FAMOTIDINE 20 MG TABLET PO (20:31)
[2021-05-18] MEDS: MIRTAZAPINE 30 MG TABLET PO (20:31)
[2021-05-18] MEDS: INSULIN GLARGINE (*BKC) 100 UNITS/ML 20 UNITS SUB-Q (20:31)
[2021-05-18] MEDS: ATORVASTATIN 10 MG TABLET PO (20:31)
[2021-05-18 23:16] LABS: Creatinine Urine 31.5 mg/dL
[2021-05-18 23:18] LABS: Sodium Urine Random 138 meq/L
[2021-05-19] VITALS (23 sets, daily range): BP systolic 116–176; BP diastolic 51–80; PULSE 73–91; RESP 20–25; TEMP 36.4–36.8; O2SAT 93–98
--- NOTE | 2021-05-19 | ECHO_ITS ---
Patient Info Name: Wing Veloz Age: 65 years : 1955 Gender: Male Ht: 72 in Wt: 394 lbs BSA: 3.11 m2 HR: 84 bpm BP: 117 / 51 mmHg Exam Date: 05/19/2021 11:02 AM Exam Location: [facility] Pulmonary Patient Status: Inpatient Admit Date: 05/16/2021 Staff Ordering Physician: George George MD [employer] Technician: Deshawn Kim RDCS, RT Attending Provider: Jd Flores MD Referring Physician: Ariel SPRAGUE; Exam Type: CA echo doppler color flow Study Info Indications I50.9 - Heart failure, unspecified Complete two-dimensional, color flow and Doppler transthoracic echocardiogram is performed. Summary 1. Complete two-dimensional, color flow and Doppler transthoracic echocardiogram is performed. 2. Left ventricular chamber dimension is normal. 3. Left ventricular systolic function is normal, estimated at 60-65%. 4. There is moderately increased left ventricular wall thickness. 5. The left ventricular diastolic function is abnormal. 6. E/e' 14 is mildly elevated. 7. There is mild to moderate tricuspid valve regurgitation. 8. Moderate pulmonary hypertension, estimated pulmonary arterial systolic pressure is 57 mmHg. 9. Dilated inferior vena cava with <50% collapse upon inspiration consistent with significantly elevated right atrial pressure, 15 mmHg. Left Ventricle E/e' 14 is mildly elevated. Left ventricular chamber dimension is normal. Left ventricular systolic function is normal, estimated at 60-65%. There is moderately increased left ventricular wall thickness. The left ventricular diastolic function is abnormal. Right Ventricle Right ventricular chamber dimension is normal. Right ventricular systolic function is normal. Left Atria Left atrial chamber dimension is normal. Right Atria Right atrial chamber dimension is normal. Aortic Valve The aortic valve is trileaflet. There is no aortic valve stenosis. There is no aortic valve regurgitation. Pulmonic Valve There is no pulmonic regurgitation. Mitral Valve There is no mitral valve stenosis. There is no mitral valve regurgitation. Tricuspid Valve There is mild to moderate tricuspid valve regurgitation. Moderate pulmonary hypertension, estimated pulmonary arterial systolic pressure is 57 mmHg. Pericardium/Pleural There is no pericardial effusion. Inferior Vena Cava Dilated inferior vena cava with <50% collapse upon inspiration consistent with significantly elevated right atrial pressure, 15 mmHg. Aorta The aortic root size at the sinus of Valsalva is normal. Left Ventricular Outflow Tract Name Value Normal LVOT 2D LVOT Diameter 2.1 cm LVOT Doppler LVOT Peak Gradient 4 mmHg LVOT Mean Gradient 2 mmHg LVOT VTI 19 cm LVOT VTI/AV VTI Ratio 0.8 LVOT Stroke Volume 67 ml LVOT CO 5.5 l/min LVOT CI 1.8 l/min/m2 Mitral Valve Name
[2021-05-19] MEDS: ALBUTEROL SULFATE NEB 2.5 MG/0.5 ML INH INHALATION ×2 (03:07→09:24)
[2021-05-19 04:46] LABS: Eosinophil Urine None Seen % (None Seen)
[2021-05-19 06:00] LABS: Basophils Percent Auto 0.3 % (0.2-1.2); Eosinophils Absolute Auto 0.1 K/mm3 (0-0.3); Eosinophils Percent Auto 1.1 % (0-4.4); Hematocrit 32.6 % (42.0-52.0); Hemoglobin 9.7 g/dL (14.0-18.0); Immature Granulocyte Absolute 0.03 K/mm3 (0.00-0.031); Immature Granulocyte Percent A 0.4 % (0-0.5); Lymphocytes Absolute Auto 1.45 K/mm3 (0.9-3.2); Lymphocytes Percent Auto 18.2 % (18.3-44.2); Mean Corpuscular HGB Conc 29.8 g/dl (32-36); Mean Corpuscular Hemoglobin 26.8 pg (26-34); Mean Corpuscular Volume 90.1 fl (80-100); Mean Platelet Volume 8.9 fl (7.4-10.4); Monocytes Percent Auto 13.1 % (2.6-8.5); Neutrophils Absolute Auto 5.3 K/mm3 (1.3-6.7); Neutrophils Percent Auto 66.9 % (45.5-73.1); Platelet Count Result 129 k/mm3 (150-375); Red Blood Count 3.62 M/mm3 (4.6-6.20); Red Cell Distribution Width 15.9 % (11.5-14.5)
[2021-05-19 06:33] LABS: Albumin Level 3.1 g/dL (3.5-5.1); Anion Gap 7 mmol/L (8-16); Blood Urea Nitrogen 53 mg/dL (9-20); Calcium 8.4 mg/dL (8.4-10.2); Carbon Dioxide 29 mmol/L (22-30); Chloride 99 mmol/L (98-107); Estimated CRCL calculation 20 ml/min; Estimated Glomerular Filt Rate 10; Glucose 105 mg/dL (65-110); Magnesium 2.2 mg/dL (1.6-2.3); Phosphorus 4.3 mg/dL (2.5-4.5); Potassium 5.3 mmol/L (3.4-5.0); Sodium 135 mmol/L (137-145)
[2021-05-19 06:59] LABS: Hypochromasia 1+ (NORMAL); Platelet Estimate Adequate (Adequate); Poikilocytosis 1+ (NORMAL); Polychromasia 1+ (NORMAL)
--- NOTE | 2021-05-19 08:23 | WPDCN ---
Assessment and Plan Assessment and plan (1) Facial bone fracture: Code(s): S02.92XA - Unspecified fracture of facial bones, initial encounter for closed fracture Status: Acute Assessment and Plan: no identifiable facial fractures radiographically nor by palpation. That being said the patient could have occult facial fractures which may be interfering cause serious problems with positive pressure ventilation. Again, that being said if the patient requires positive pressure ventilation this may be acceptable given the absence of radiographic findings of facial or orbital fractures. The patient would develop significant facial edema and crepitus or orbital edema and crepitus or neurologic changes after starting positive-pressure ventilation I would immediately stopped. The patient can follow up with me as needed as an outpatient for any and all otolaryngologic issues. HPI Data of Consult Date/Time: 05/19/21 08:23 ENT consult did because patient has facial fractures and may need positive-pressure ventilation. My personal review of the CT does not necessarily demonstrate fractures possible nasal bone fracture although the patient denies any nasal dorsal pain. He does have ecchymosis and bruising over the right orbit. Some pain to palpation of this area Requesting Physician: Jd Flores MD Primary Care Provider: Renato Moctezuma Consult Narrative Narrative: Wing Veloz is a 65 year old male Review of Systems Constitutional: Constitutional: Denies fatigue, Denies fever(s) and Denies lethargy Eyes: Eyes: Denies blurry vision and Denies change in vision ENT: Reports as per HPI Cardiovascular: Cardiovascular: Denies chest pain Respiratory: Respiratory: Denies cough Endocrine: Endocrine: Denies fatigue Hematologic/Lymphatic: Hematologic/Lymphatic: Denies easy bleeding, Denies easy bruising and Denies lymphadenopathy Allergic/Immunologic: Allergic/Immunologic: Denies seasonal rhinorrhea [facility] Past Medical History Medical History Chronic anemia Chronic stasis dermatitis Coronary artery disease Depression with anxiety History of deep venous thrombosis Hypertension Insulin dependent type 2 diabetes mellitus Hemoglobin A1c 9.2 Obstructive sleep apnea Noncompliant with CPAP. Peripheral vascular disease Ventral hernia Chronic large left lower quadrant ventral hernia Surgical History Surgical History History of tonsillectomy Status post below-knee amputation of left lower extremity Status post herniorrhaphy Ventral hernia repair x3. Family History Family History Father , at age 69 Diabetes mellitus Family history of alcoholism Mother Diabetes mellitus Sibling Family history of emphysema Other Family history of cardiovascular disease Social History Social History Social History: The patient has been at [facility] for several years. Before that he was living with his mother in [place]. He is on disability. He had 2 daughters, one at the age of 34 from an [place]. He is a lifelong non-smoker. A former heavy drinker though he has abstained [facility]. He denies illicit drug use. Patient wishes to be a full code. His ryflq-de-einidath is his mother, Nicolle Veloz. Smoking status: Never smoker Alcohol intake: former Drinks per week: 50 Substance use: never Gender identity (if verbalized by the patient): Male Spiritual care concerns: No Meds Home Medications and Allergies Home Medications Medication Instructions Recorded Confirmed Type Therapeutic-M Vitamin/Minerals 1 tablet PO DAILY 11/14/19 05/16/21 History acetaminophen [Acetaminophen Extra 500 mg PO Q6H
[2021-05-19 08:28] LABS: Glucose Point of Care 97 mg/dl (65-105)
[2021-05-19] MEDS: TOLNAFTATE 1% POWDER 45 GM BTL 1 APPLIC TOPICAL ×2 (09:23→20:17)
[2021-05-19] MEDS: MUPIROCIN 2% OINT 22 GM TUBE 1 APPLIC TOPICAL ×2 (09:23→20:17)
[2021-05-19] MEDS: BUMETANIDE INJ 1 MG/4 ML VIAL 2 MG IV PUSH (09:23)
[2021-05-19] MEDS: ASPIRIN 81 MG ENTERIC TABLET PO (09:24)
[2021-05-19] MEDS: BENZONATATE 100 MG CAPSULE PO (09:25)
[2021-05-19] MEDS: busPIRone HCL 5 MG TABLET PO ×3 (09:25→17:14)
[2021-05-19] MEDS: CYANOCOBALAMIN 1,000 MCG TABLET 1000 MCG PO (09:25)
[2021-05-19] MEDS: buPROPion HCL XL (24 HR) 150 MG TABCR PO (09:25)
[2021-05-19] MEDS: HEPARIN SODIUM 5,000 UNITS/ML VIAL 5000 UNITS SUB-Q ×2 (09:25→20:17)
[2021-05-19] MEDS: ASCORBIC ACID 500 MG TABLET PO ×2 (09:26→17:15)
[2021-05-19] MEDS: SENNA/DOCUSATE SODIUM TABLET 1 TAB PO (09:26)
[2021-05-19] MEDS: ESCITALOPRAM OXALATE 5 MG TABLET PO (09:26)
[2021-05-19] MEDS: THERAPEUTIC MULTIVITAMINS/MINERALS TAB (*BKC) 1 TABLET PO (09:26)
[2021-05-19] MEDS: ESCITALOPRAM OXALATE 10 MG TABLET PO (09:26)
[2021-05-19] MEDS: MIDODRINE HCL 10 MG TABLET PO ×3 (09:27→17:14)
[2021-05-19] MEDS: FAMOTIDINE 20 MG TABLET PO ×2 (09:27→20:17)
--- NOTE | 2021-05-19 10:13 | PM.IMPN ---
Progress Note: A&P Assessment and Plan (1) Acute on chronic respiratory failure with hypoxia and hypercapnia: Code(s): J96.21 - Acute and chronic respiratory failure with hypoxia; J96.22 - Acute and chronic respiratory failure with hypercapnia Status: Acute Assessment and Plan: CXR on admission showing stable appearance of prominent bilateral paracardial fat pads and mild lingular atelectasis but no acute cardiopulmonary disease. ABG 7.136/94/56 on 3.5L on admission. NIV started and ABG improved to 7.32/66/126. Patient feeling much better. BiPAP removed due to his improvement and that he has nasal fractures; patient now cleared by ENT to resume with close monitoring. Respiratory failure related to TAWANDA but he is wheezing now. CXR reviewed today showing diffuse bilateral lung disease relatively sparing the left upper lung zone with improvement in the prior perihilar opacities in the right midlung zone. Could be pulm edema; Bumex given. Consider PNA but WBC normal and no fevers; he does have a cough still. Aspiration? BCx NGTD. Sputum pending. Will hold IV abx. Continue nebs. Check MBS. Check Echo since concern for CHF. (2) REJI (acute kidney injury): Code(s): N17.9 - Acute kidney failure, unspecified Status: Acute Assessment and Plan: Cr 0.8 on admission. No contrast exposure. BP soft at times but Cr rise began before the HoTN. AIN from abx? Related to the severe respiratory failure as ATN? Guerrero repositioned and flushed without much output and US verifies it is in the bladder. Urine eos negative. Renal US normal. TCK and Complement normal. Cr climbed to 5.6 today with poor UOP. IV fluids stopped adn Bumex ordered. Midodrine started for soft BPs. Nephrology consulted and appreciate their input. (3) Altered mental status: Code(s): R41.82 - Altered mental status, unspecified Status: Acute Assessment and Plan: CT brain showing no acute intracranial abnormalities. AMS felt related to the hypercapnia. Mental status has improved. Continue current respiratory care. (4) Closed fracture nasal bone: Code(s): S02.2XXA - Fracture of nasal bones, initial encounter for closed fracture Status: Acute Assessment and Plan: Patient had a fall most likely related to his severe respiratory failure. CT scan shows bilateral nasal bone fractures and right periorbital hematoma. BiPAP was stopped due to the concern about the nasal fractures. Pulmonary recommends ENT consult and ENT was able to see the patient. ENT did not feel patient had a radiographic identifiable facial fracture although could not exclude occult fractures. It was felt that if the patient requires positive pressure ventilation, then this may be acceptable risk given the absence of radiographic findings of facial or orbital fractures. Will resumed NIV. If the patient develops significant facial edema and crepitus or orbital edema and crepitus or neurologic changes after starting positive-pressure ventilation, then we will immediately stop the positive pressure ventilation. Appreciate ENT input. (5) Facial hematoma: Code(s): S00.83XA - Contusion of other part of head, initial encounter Status: Acute Assessment and Plan: Secondary to fall and nasal fracture. Supportive care. (6) Obstructive sleep apnea: Code(s): G47.33 - Obstructive sleep apnea (adult) (pediatric) Status: Acute Assessment and Plan: The notes state patient is noncompliant with NIV. Patient states he has never been offered NIV at the facility even though he has a long history of sleep apnea. As above. (7) Insulin dependent type 2 diabetes mellitus: Code(s): E11.9 - Type 2 diabetes mellitus without complications; Z79.4 - private investigator (current) use of insulin Status: Acute Assessment and Plan: A1c 9.2 in February. The patient's blood glucose was reviewed on 05/19 Glucose remains too
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
--- NOTE | 2021-05-19 10:48 | PM.PNNEP ---
Progress Note: A&P Assessment and Plan (1) REJI (acute kidney injury): Code(s): N17.9 - Acute kidney failure, unspecified Status: Acute Assessment and Plan: Jimenez has acute kidney injury. This is on top of normal kidney function renal ultrasound shows normal kidneys and a decompressed bladder with the Guerrero catheter there in. Urine eosinophils negative. urine electrolytes non pre renal. Urinalysis is fairly bland urine output is meager. this is probably ATN. his platelet count is low. Blood cultures are negative. I doubt if this is TTP. There is a mild reduction in his hemoglobin however he is getting volume overloaded and there is a delusional factor. Will check a LDH and have Pathology look at the blood smear to make sure there is no schistocytes. Over control of blood pressure is a possibility. TSH and cortisol are okay. He is off blood pressure medications. He received midodrine overnight. CPK is normal. Will try a couple of doses of Bumex to see if we can convert him to nonoliguric renal failure. Check renal scan to see if there is blood flow to the kidneys (2) Acute on chronic respiratory failure with hypoxia and hypercapnia: Code(s): J96.21 - Acute and chronic respiratory failure with hypoxia; J96.22 - Acute and chronic respiratory failure with hypercapnia Status: Acute Assessment and Plan: The patient has morbid obesity and sleep apnea. (3) Closed fracture nasal bone: Code(s): S02.2XXA - Fracture of nasal bones, initial encounter for closed fracture Status: Acute Assessment and Plan: Supportive care (4) Hypertension: Qualifiers: Hypertension type: essential hypertension Qualified Code(s): I10 - Essential (primary) hypertension Code(s): I10 - Essential (primary) hypertension Status: Acute Assessment and Plan: holding on blood pressure med (5) Obstructive sleep apnea: Code(s): G47.33 - Obstructive sleep apnea (adult) (pediatric) Status: Acute (6) Coronary artery disease: Code(s): I25.10 - Atherosclerotic heart disease of [place] coronary artery without angina pectoris Status: Acute Assessment and Plan: is no chest pain currently (7) Insulin dependent type 2 diabetes mellitus: Code(s): E11.9 - Type 2 diabetes mellitus without complications; Z79.4 - retirement (current) use of insulin Status: Acute Assessment and Plan: on Accu-Cheks and sliding-scale insulin Subjective Date/time seen: 05/19/21 10:48 Interval history: Patient feels about the same today. No chest pain or shortness of breath. Still has some swelling Review of Systems Cardiovascular: Cardiovascular: Reports no additional cardiovascular complaints Respiratory: Respiratory: Reports no additional respiratory complaints Gastrointestinal: Gastrointestinal: Reports no additional gastrointestinal complaints Genitourinary: Genitourinary: Reports no additional male genitourinary complaints Exam Narrative: WDWN in NAD skin same facial rash. head ncat lungs clear cor reg no rub o gallop abd BS+ nontender and soft ext 2+ edema. Objective Data Vital Signs Vital Signs: Vital Signs - 24 hr 05/18/21 12:00 05/18/21 12:30 05/18/21 12:54 Temperature 36.0 C L Pulse Rate 85 85 Respiratory Rate 24 H Blood Pressure 138/97 H Pulse Oximetry 96 97 99 05/18/21 12:55 05/18/21 14:00 05/18/21 14:15 Temperature Pulse Rate 85 86 Respiratory Rate 20 Blood Pressure Pulse Oximetry 96 05/18/21 14:25 05/18/21 16:00 05/18/21 17:08 Temperature 35.9 C L Pulse Rate 87 92 91 Respiratory Rate 20 23 H Blood Pressure 121/57 L Pulse Oximetry 97 95 05/18/21 18:00 05/18/21 20:00 05/18/21 20:18 Temperature 36.6 C Pulse Rate 90 87 84 Respiratory Rate 22 H 18 Blood Pressure 93/72 L Pulse Oximetry 95 05/18/21 20:20 05/18/21 20:
[2021-05-19 11:36] LABS: Lactate Dehydrogenase 435 U/L (313-618)
[2021-05-19 11:55] LABS: Glucose Point of Care 216 mg/dl (65-105)
[2021-05-19] MEDS: INSULIN ASPART (*BKC) 100 UNITS/ML SUB-Q ×2 (12:00→17:00)
[2021-05-19] MEDS: guaiFENesin 12 HR 600 MG TABCR PO ×2 (13:18→20:17)
[2021-05-19] MEDS: EUCERIN CREAM 120 GM JAR 1 APPLIC TOPICAL ×2 (13:18→17:10)
--- NOTE | 2021-05-19 16:25 | PCSTNOTE ---
Please refer to the Bedside Swallow Evaluation in the EMR. Please note, silent aspiration cannot be ruled out at bedside.
[2021-05-19 17:01] LABS: Glucose Point of Care 224 mg/dl (65-105)
[2021-05-19] MEDS: BUMETANIDE INJ 2.5 MG/10 ML VIAL 2 MG IV PUSH (17:11)
[2021-05-19] MEDS: MELATONIN 3 MG TABLET PO (20:17)
[2021-05-19] MEDS: ATORVASTATIN 10 MG TABLET PO (20:17)
[2021-05-19] MEDS: MIRTAZAPINE 30 MG TABLET PO (20:17)
[2021-05-19] MEDS: INSULIN GLARGINE (*BKC) 100 UNITS/ML 15 UNITS SUB-Q (20:22)
[2021-05-19 20:37] LABS: Glucose Point of Care 181 mg/dl (65-105)
[2021-05-20] VITALS (35 sets, daily range): BP systolic 116–193; BP diastolic 47–99; PULSE 64–93; RESP 14–22; TEMP 35.9–37.2; O2SAT 91–99
[2021-05-20 04:52] LABS: Alveolar/Arterial O2 Gradient 75.3 mmHg; Fractional Inspired Oxygen 35 %; HCO3 ABG 29.7 mEq/l (22.0-26.0); Oxygen Content ABG 19.2 %vol (16.0-22.0); Oxygen Saturation ABG 97.3 % (95.0-100.0); Oxyhemoglobin 95.8 % THb (90.0-100.0); PCO2 ABG 59.5 mmHg (35.0-45.0); PO2 ABG 105.1 mmHg (80.0-100.0); Total Hemoglobin 14.2 g/dL (12.0-18.0); pH ABG 7.316 (7.350-7.450)
[2021-05-20 04:54] LABS: Device OTHER DEVICE; Modified Allen's Test Pass; Site Drawn RIGHT RADIAL
[2021-05-20 05:17] LABS: Basophils Percent Auto 0.1 % (0.2-1.2); Eosinophils Absolute Auto 0.2 K/mm3 (0-0.3); Eosinophils Percent Auto 2.1 % (0-4.4); Hematocrit 35.4 % (42.0-52.0); Hemoglobin 10.5 g/dL (14.0-18.0); Immature Granulocyte Absolute 0.02 K/mm3 (0.00-0.031); Immature Granulocyte Percent A 0.3 % (0-0.5); Lymphocytes Percent Auto 17.4 % (18.3-44.2); Mean Corpuscular HGB Conc 29.7 g/dl (32-36); Mean Corpuscular Hemoglobin 26.2 pg (26-34); Mean Corpuscular Volume 88.3 fl (80-100); Mean Platelet Volume 8.6 fl (7.4-10.4); Monocytes Absolute Auto 1.2 K/mm3 (0.1-0.6); Monocytes Percent Auto 16.3 % (2.6-8.5); Neutrophils Absolute Auto 4.8 K/mm3 (1.3-6.7); Neutrophils Percent Auto 63.8 % (45.5-73.1); Platelet Count Result 122 k/mm3 (150-375); Red Blood Count 4.01 M/mm3 (4.6-6.20); Red Cell Distribution Width 15.5 % (11.5-14.5); White Blood Count 7.5 K/mm3 (4.5-10.0)
[2021-05-20 05:55] LABS: Albumin Level 3.1 g/dL (3.5-5.1); Anion Gap 10 mmol/L (8-16); Blood Urea Nitrogen 66 mg/dL (9-20); Calcium 8.5 mg/dL (8.4-10.2); Carbon Dioxide 28 mmol/L (22-30); Chloride 93 mmol/L (98-107); Estimated CRCL calculation 17 ml/min; Estimated Glomerular Filt Rate 8; Glucose 115 mg/dL (65-110); Magnesium 2.1 mg/dL (1.6-2.3); Potassium 5.6 mmol/L (3.4-5.0); Sodium 131 mmol/L (137-145)
--- NOTE | 2021-05-20 08:11 | PM.PNNEP ---
Progress Note: A&P Assessment and Plan (1) REJI (acute kidney injury): Code(s): N17.9 - Acute kidney failure, unspecified Status: Acute Assessment and Plan: Jimenez has acute kidney injury. This is on top of normal kidney function renal ultrasound shows normal kidneys and a decompressed bladder with the Guerrero catheter there in. Urine eosinophils negative. urine electrolytes non pre renal. Urinalysis is fairly bland urine output is meager. even after 2 mg of Bumex this is probably ATN. his platelet count is low. Blood cultures are negative. LDH is normal. Pathology reviewing smear. I doubt if this is TTP. Over control of blood pressure is a possibility. TSH and cortisol are okay. He is off blood pressure medications. He is on midodrine and off any antihypertensives. CPK is normal. The patient has developed asterixis. His creatinine is up again today. I feel he needs dialysis. I discussed with the patient about dialysis. We discussed the risks, benefits, alternatives, and process and the patient agrees to proceed. (2) Acute on chronic respiratory failure with hypoxia and hypercapnia: Code(s): J96.21 - Acute and chronic respiratory failure with hypoxia; J96.22 - Acute and chronic respiratory failure with hypercapnia Status: Acute Assessment and Plan: The patient has morbid obesity and sleep apnea. (3) Closed fracture nasal bone: Code(s): S02.2XXA - Fracture of nasal bones, initial encounter for closed fracture Status: Acute Assessment and Plan: Supportive care Appreciate ENT note (4) Hypertension: Qualifiers: Hypertension type: essential hypertension Qualified Code(s): I10 - Essential (primary) hypertension Code(s): I10 - Essential (primary) hypertension Status: Acute Assessment and Plan: blood pressure seems to be doing pretty well right now. Cortisol level is okay (5) Obstructive sleep apnea: Code(s): G47.33 - Obstructive sleep apnea (adult) (pediatric) Status: Acute Assessment and Plan: use the BiPAP machine last night and did well. (6) Coronary artery disease: Code(s): I25.10 - Atherosclerotic heart disease of [place] coronary artery without angina pectoris Status: Acute Assessment and Plan: is no chest pain currently (7) Insulin dependent type 2 diabetes mellitus: Code(s): E11.9 - Type 2 diabetes mellitus without complications; Z79.4 - nursing home (current) use of insulin Status: Acute Assessment and Plan: on Accu-Cheks and sliding-scale insulin Subjective Date/time seen: 05/20/21 08:11 Interval history: Patient feels about the same today. No chest pain or shortness of breath. Still has some swelling Exam Narrative: WDWN in NAD skin same facial rash. head ncat lungs decreased breath sounds at the bases. cor reg no rub o gallop abd BS+ nontender and soft ext 2+ edema. neuro: Positive asterixis Objective Data Vital Signs Vital Signs: Vital Signs - 24 hr 05/19/21 09:15 05/19/21 09:32 05/19/21 09:37 Temperature Pulse Rate 83 91 Respiratory Rate 24 H 24 H Blood Pressure Pulse Oximetry 98 98 93 05/19/21 10:00 05/19/21 11:56 05/19/21 12:00 Temperature 36.4 C L Pulse Rate 86 83 84 Respiratory Rate 24 H Blood Pressure 140/66 Pulse Oximetry 97 94 05/19/21 14:00 05/19/21 16:00 05/19/21 18:00 Temperature 36.8 C Pulse Rate 78 81 77 Respiratory Rate 20 Blood Pressure 148/59 H Pulse Oximetry 96 05/19/21 20:00 05/19/21 21:56 05/19/21 22:50 Temperature 36.4 C Pulse Rate 83 82 78 Respiratory Rate 20 23 H Blood Pressure 176/62 H Pulse Oximetry 97 97 05/19/21 23:40 05/19/21 23:53 05/20/21 00:00 Temperature 36.6 C Pulse Rate 79 71 Respiratory Rate 20 Blood Pressure 116/80 Pulse Oximetry 97 98 05/20/21 01:41 05/20/21 01:54 05/20/21
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
[2021-05-20] MEDS: BUMETANIDE INJ 2.5 MG/10 ML VIAL 2 MG IV PUSH ×2 (09:48→17:21)
[2021-05-20] MEDS: ASCORBIC ACID 500 MG TABLET PO ×2 (09:48→17:24)
[2021-05-20] MEDS: MIDODRINE HCL 10 MG TABLET PO ×2 (09:49→17:24)
[2021-05-20] MEDS: buPROPion HCL XL (24 HR) 150 MG TABCR PO (09:49)
[2021-05-20] MEDS: busPIRone HCL 5 MG TABLET PO ×2 (09:49→17:24)
[2021-05-20] MEDS: ESCITALOPRAM OXALATE 10 MG TABLET PO (09:49)
[2021-05-20] MEDS: THERAPEUTIC MULTIVITAMINS/MINERALS TAB (*BKC) 1 TABLET PO (09:49)
[2021-05-20] MEDS: ESCITALOPRAM OXALATE 5 MG TABLET PO (09:49)
[2021-05-20] MEDS: guaiFENesin 12 HR 600 MG TABCR PO ×2 (09:49→20:30)
[2021-05-20] MEDS: CYANOCOBALAMIN 1,000 MCG TABLET 1000 MCG PO (09:49)
[2021-05-20] MEDS: FAMOTIDINE 20 MG TABLET PO ×2 (09:49→20:30)
[2021-05-20] MEDS: EUCERIN CREAM 120 GM JAR 1 APPLIC TOPICAL ×2 (09:52→17:24)
[2021-05-20] MEDS: MUPIROCIN 2% OINT 22 GM TUBE 1 APPLIC TOPICAL ×2 (09:52→20:31)
[2021-05-20] MEDS: TOLNAFTATE 1% POWDER 45 GM BTL 1 APPLIC TOPICAL ×2 (09:52→20:31)
[2021-05-20 09:55] LABS: Hepatitis B Surface Antigen Negative (Negative)
[2021-05-20 10:13] LABS: Hepatitis B Surface Anti Res Negative; Hepatitis C Virus Antibody Negative (Negative)
--- NOTE | 2021-05-20 12:04 | PM.IMPN ---
Progress Note: A&P Assessment and Plan (1) Acute on chronic respiratory failure with hypoxia and hypercapnia: Code(s): J96.21 - Acute and chronic respiratory failure with hypoxia; J96.22 - Acute and chronic respiratory failure with hypercapnia Status: Acute Assessment and Plan: CXR on admission showing stable appearance of prominent bilateral paracardial fat pads and mild lingular atelectasis but no acute cardiopulmonary disease. ABG 7.136/94/56 on 3.5L on admission. NIV started and ABG improved to 7.32/66/126. Patient feeling much better. BiPAP held due to his nasal fractures until cleared by ENT; BiPAP with full face mask resumed which he toelrated well. ABG today showing 7.32/59/105 35% FiO2. Respiratory failure related to TAWANDA. CXR reviewed today showing diffuse bilateral lung disease relatively sparing the left upper lung zone with improvement in the prior perihilar opacities in the right midlung zone. Could be pulm edema; Bumex given but UOP still poor. Echo showing EF 60-65% wit Grade I diastolic dysfunction, moderate TR adn moderate pulmonary HTN. Consider PNA but WBC normal and no fevers; he does have a cough still. Spech therapy showing patient can swallow safely. BCx NGTD. Sputum NGTD. Continue nebs. Abx remain on hold. (2) REJI (acute kidney injury): Code(s): N17.9 - Acute kidney failure, unspecified Status: Acute Assessment and Plan: Cr 0.8 on admission. No contrast exposure. BP soft at times but Cr rise began before the HoTN. AIN from abx? Related to the severe respiratory failure as ATN? Guerrero repositioned and flushed without much output and US verifies it is in the bladder. Urine eos negative. Renal US normal. TCK and Complement normal. Cr climbed to 6.8 today with poor UOP c/w oliguric REJI; Potassium 5.6. Remains on Bumex IV. Continue Midodrine. BP stable now. Nephrology consulted and appreciate their input. Plan for tunnelled catheter for HD. HD will improve potassium (3) Altered mental status: Code(s): R41.82 - Altered mental status, unspecified Status: Acute Assessment and Plan: CT brain showing no acute intracranial abnormalities. AMS felt related to the hypercapnia. Mental status has improved. Continue current respiratory care. (4) Closed fracture nasal bone: Code(s): S02.2XXA - Fracture of nasal bones, initial encounter for closed fracture Status: Acute Assessment and Plan: Patient had a fall most likely related to his severe respiratory failure. CT scan shows bilateral nasal bone fractures and right periorbital hematoma. BiPAP was stopped due to the concern about the nasal fractures. Pulmonary recommends ENT consult and ENT was able to see the patient. ENT did not feel patient had a radiographic identifiable facial fracture although could not exclude occult fractures. It was felt that if the patient requires positive pressure ventilation, then this may be acceptable risk given the absence of radiographic findings of facial or orbital fractures. If the patient develops significant facial edema and crepitus or orbital edema and crepitus or neurologic changes after starting positive-pressure ventilation, then we will immediately stop the positive pressure ventilation. Appreciate ENT input. We resumed NIV. (5) Facial hematoma: Code(s): S00.83XA - Contusion of other part of head, initial encounter Status: Acute Assessment and Plan: Secondary to fall and nasal fracture. ENT evaluation as mentioned above. Supportive care. (6) Obstructive sleep apnea: Code(s): G47.33 - Obstructive sleep apnea (adult) (pediatric) Status: Acute Assessment and Plan: The notes state patient is noncompliant with NIV. Patient states he has never been offered NIV at the facility even though he has a long history of sleep apnea. As above. (7) Insulin dependent type 2 diabetes mellitus: Code(s): E11
[2021-05-20 12:11] LABS: Glucose Point of Care 123 mg/dl (65-105)
--- NOTE | 2021-05-20 13:57 | PCPTNOTE ---
Pt leaviing for procedure to have port inserted for dialysis-will take a couple hours per RN. Try in am.
--- NOTE | 2021-05-20 14:09 | WPDHPUPDATE1 ---
History and Physical Update Update Date/Time: 05/20/21 14:[address] tunneled central venous catheter for dialysis as requested by nephrology. History and Physical has been reviewed, including an updated exam of the patient. There are NO changes in the patient's condition--other than those due to acute renal failure, the indication for dialysis. Risks, benefits, and alternatives have been discussed and questions answered. Patient agrees to proceed with procedure.
--- NOTE | 2021-05-20 14:15 | WPDANESEPPF ---
Anes - Initial Pre Proc Eval Procedure: Operation Date: 05/20/21 15:00 Proposed Procedures p Insertion Tunnelled Duraflow Central Venous Catheter Under Flouroscopy - Valeriano Vela MD Date/Time: 05/20/21 14:15 Surgeon: Jd Flores MD Pre Op Diagnosis: hypercapnic respiratory failure, nasal bone fractu Patient Data Age: 65 Gender: M Height: 1.83 m Weight: 179 kg Last Vital Signs Temp 36.8 C 05/20/21 12:00 Pulse 82 05/20/21 12:00 Resp 22 H 05/20/21 12:00 BP 155/70 H 05/20/21 12:00 Pulse Ox 97 05/20/21 12:00 Allergies Allergy/AdvReac Type Severity Reaction Status Date / Time Penicillins AdvReac Unknown Fever Verified 05/03/21 13:53 Home Medications Medication Instructions Recorded Confirmed Type Therapeutic-M Vitamin/Minerals 1 tablet PO DAILY 11/14/19 05/16/21 History acetaminophen [Acetaminophen Extra 500 mg PO Q6H PRN 11/14/19 05/16/21 History Strength] ascorbic acid (vitamin C) 500 mg PO BID 11/14/19 05/16/21 History ergocalciferol (vitamin D2) 50,000 unit PO WEEKLY 11/14/19 05/16/21 History [Vitamin D2] escitalopram oxalate 5 mg PO DAILY 11/14/19 05/16/21 History escitalopram oxalate 10 mg PO DAILY 11/14/19 05/16/21 History gabapentin 600 mg PO TID 11/14/19 05/16/21 History mirtazapine 30 mg PO HS 11/14/19 05/16/21 History aspirin [Aspirin Low Dose] 81 mg PO DAILY 12/08/19 05/16/21 History atorvastatin 10 mg PO HS 12/08/19 05/16/21 History lisinopril 10 mg PO DAILY #0 tablet 12/11/19 05/16/21 Rx melatonin 3 mg PO HS 30 Days #30 tablet 12/11/19 05/16/21 Rx sennosides-docusate sodium 1 tab-cap PO DAILY 04/14/20 05/16/21 History [Senexon-S] Biofreeze (menthol) 1 applic TOPICAL BID 04/15/20 05/16/21 History sodium chloride [Saline Nasal Mist] 1 spray INTRANASAL Q4H PRN 04/15/20 05/16/21 History Lantus U-100 Insulin 10 unit SUBCUT QAM 11/05/20 05/16/21 History Lantus U-100 Insulin 80 unit SUBCUT HS 11/05/20 05/16/21 History insulin aspart U-100 [Novolog 1 sliding scale dose SUBCUT 11/05/20 05/16/21 History U-100 Insulin aspart] USEASDIRECTD insulin aspart U-100 [Novolog 35 unit SUBCUT AC 11/05/20 05/16/21 History U-100 Insulin aspart] clotrimazole-betamethasone 1 applic TOPICAL Q12HR #30 ml 11/07/20 05/16/21 Rx ondansetron 4 mg PO Q8H PRN #10 tablet 01/07/21 05/16/21 Rx Victoza 2-Tushar 1.8 mg SUBCUT DAILY 03/03/21 05/16/21 History benzonatate 100 mg PO TID PRN 03/03/21 05/16/21 History buspirone 5 mg PO TID 03/03/21 05/16/21 History metformin 1,000 mg PO BID 03/03/21 05/16/21 History mupirocin 1 applic TOPICAL BID 03/03/21 05/16/21 History trazodone 150 mg PO HS PRN 03/03/21 05/16/21 History mecobalamin (vitamin B12) 1,000 mcg SUBLINGUAL DAILY #30 03/05/21 05/16/21 Rx tablet pantoprazole 20 mg PO QAM 28 Days #28 tablet 03/05/21 05/16/21 Rx bupropion HCl [Wellbutrin XL] 150 mg PO DAILY 05/16/21 05/16/21 History hydrocodone-acetaminophen [[place]] 1 tablet PO Q8H PRN 05/16/21 05/16/21 History ketoconazole 1 applic TOPICAL DAILY 05/16/21 05/16/21 History Laboratory Tests 05/19/21 05/19/21 05/20/21 16:28 20:21 04:31 WBC RBC Hgb Hct MCV MCH MCHC RDW Plt Count MPV Immature Gran % (Auto) Neut % (Auto) Lymph % (Auto) [place] % (Auto) Eos % (Auto) Baso % (Auto) Lymph # (Auto) [place] # (Auto) Eos # (Auto) Baso # (Auto) Abs Immat Gran (auto) Absolute Neuts (auto) Absolute Nucleated RBC Nucleated RBC % Puncture Site Right radial ABG pH 7.316 L (7.350-7.450) ABG pCO2 59.5 mmHg H mmHg (35.0-45.0) ABG pO2 105.1 mmHg H mmHg (80.0-100.0) ABG PO2/FiO2 Ratio 3.00 % % ABG HCO3 29.7 mEq/l H mEq/l (22.0-26.0) ABG O2 Saturatio
[2021-05-20 14:31] LABS: Glucose Point of Care 120 mg/dl (65-105)
[2021-05-20] MEDS: SODIUM CHLORIDE 0.9% IV 500 ML 30 ML IV CONT (14:39)
[2021-05-20] MEDS: CHLORHEXIDINE GLUCONATE 4% SOL 120 ML BTL 1 APPLIC TOPICAL (14:39)
--- NOTE | 2021-05-20 14:42 | SUR.PREOP ---
1425; TECH SHAVING PT'S RT CHEST/NECK. DR CHAN IN ROOM. MULTIPLE SORES TO CHEST AND ALL OVER BODY. DR CHAN AWARE. PREP RT SIDE ONLY.
[2021-05-20] MEDS: LIDO 1%/EPINEPHRINE 1:100,000 20 ML VIAL INFILTRATE (15:16)
[2021-05-20] MEDS: HEPARIN SODIUM, PORCINE 10,000 UNITS/10 ML VIAL 4 UNITS IV PUSH (15:18)
[2021-05-20 15:34] LABS: Complement Total CH50 >60 U/mL (31-60)
--- NOTE | 2021-05-20 16:02 | P.OP_ITS ---
Procedure Note - Detailed Date of Procedure 05/20/21 Pre-op Diagnosis oliguric acute kidney injury, inadequate venous access Post-op Diagnosis same Procedure Performed placement right subclavian tunneled Dura Flow central venous catheter under fluoroscopy Surgeon Valeriano Vela MD Utilization Review Coordinator Zeeshan Barbosa SPECIAL EDUCATION SUPERINTENDENT Anesthesia MAC and local ( 0.5% Marcaine with epinephrine) Indications patient suffered a fall due to hypercapnia. For reasons that are unclear, he has developed acute kidney injury and almost no urine output. He is taken to surgery now for placement of a tunneled central venous catheter for dialysis as requested by Nephrology. Findings Although we had planned to put the catheter in the internal jugular vein, the patient was extremely sensitive to sedation such that he would become apneic with even mild sedation. He would not lie still enough to proceed with the IJ approach and the us a right subclavian tunneled catheter was placed. Description of Procedure The patient was taken to surgery and placed in a supine position. The right neck and right subclavian areas were prepped and draped. Local anesthesia was infiltrated over the right internal jugular vein just medial to the sternocleidomastoid Border. Problems ensued with the patient continuing to move his head and difficulty maintaining a sterile field here. He also had a very short neck and it was felt that due to his significant medical conditions and obese body habitus, it would be best to proceed with the subclavian. A single puncture was made under the left clavicle and a subclavian vein was cannulated. A guidewire passed into the superior vena cava. This was demonstrated on C-arm fluoroscopy. I then used fluoroscopy to estimate the cavoatrial junction and the tract the tunneled central venous catheter would need to pass. I marked counter incisions on the left chest. Local was infiltrated into each counter incision. Incisions were made at each of these sites. I then tunneled the Dura Flow catheter retrograde bringing it out the same site as the guidewire. We then passed serial dilators over the guidewire again using fluoroscopy. Finally, the largest dilator with the sleeve was passed over the guidewire and into the superior vena cava. We removed the guidewire and the dilator. The catheter was passed through the sleeve and into the superior vena cava. This again was documented by fluoroscopy before we removed the sleeve. The sleeve was then removed. I checked the position of the catheter again. There were no kinks in the catheter and it appeared to be in very good position. Both ports aspirated blood easily and flushed with heparin. A final flush was given to each of the 2 ports. I then closed all the counter incisions with subcuticular interrupted suture of 4 0 Vicryl. The catheter was sutured to the skin using 3 0 nylon. A sterile transparent dressing was placed over the exit site of the catheter. The counter incisions were each dressed w [facility] Exofin surgical adhesive. The patient was awakened and taken to recovery in good condition. Estimated blood loss was 30 cc. Counts were correct x2. Postprocedure chest x-ray was reviewed by me and appeared to be satisfactory. Implants 36 cm tunneled Dura Flow central venous catheter Estimated Blood Loss -30.0 Urine Output -125.0 Drains No Packing No Pathology none sent Complications None Condition stable Disposition PACU
[2021-05-20 16:18] LABS: Glucose Point of Care 119 mg/dl (65-105)
[2021-05-20] MEDS: ASPIRIN 81 MG ENTERIC TABLET PO (17:22)
[2021-05-20] MEDS: DESONIDE 0.05% CREAM 15 GM TUBE 1 APPLIC TOPICAL ×2 (17:24→20:32)
[2021-05-20 17:54] LABS: Glucose Point of Care 115 mg/dl (65-105)
[2021-05-20 20:11] LABS: Glucose Point of Care 179 mg/dl (65-105)
[2021-05-20] MEDS: HEPARIN SODIUM 5,000 UNITS/ML VIAL 5000 UNITS SUB-Q (20:30)
[2021-05-20] MEDS: ATORVASTATIN 10 MG TABLET PO (20:30)
[2021-05-20] MEDS: MIRTAZAPINE 30 MG TABLET PO (20:31)
[2021-05-20] MEDS: MELATONIN 3 MG TABLET PO (20:31)
[2021-05-20] MEDS: INSULIN GLARGINE (*BKC) 100 UNITS/ML 15 UNITS SUB-Q (20:37)
--- NOTE | 2021-05-20 22:17 | PC.NURSE ---
05/20/21 22:[address] George that patient was losing blood from his cath site. top of gown was saturated. Looked at site blood accumulating under the Tegaderm. Pt states he feels fine, no SOB, Chest pain. Orders from Dr. Stinson to sand bag the site. Notified Liberty laguna's RN states she will be down.
--- NOTE | 2021-05-20 23:11 | PCRCNOTE ---
Addendum entered by Lizette Taylor, DEPUTY [employer]ERIFF BUILDING GUARD 05/21/21 07:11: Note by Erika Liriano RT at 2311 : Pt is in dialysis, apnealink overnight monitor held. Original Note: Pt is being uncooperative and refuses CPAP / overnight pulse ox at this time. RN notified.
[2021-05-21] VITALS (30 sets, daily range): BP systolic 103–158; BP diastolic 47–88; PULSE 72–93; RESP 18–34; TEMP 36–37.1; O2SAT 85–97
--- NOTE | 2021-05-21 00:25 | PC.NURSE ---
05/21/21 Patient had 2LB and 5LB sand bags put over his site. Did help the stop the bleeding. Surgeon needs to look at the site.
[2021-05-21 05:32] LABS: Hematocrit 33.7 % (42.0-52.0); Hemoglobin 10.1 g/dL (14.0-18.0); Mean Corpuscular Hemoglobin 26.4 pg (26-34); Mean Platelet Volume 9.2 fl (7.4-10.4); Platelet Count Result 136 k/mm3 (150-375); Red Blood Count 3.83 M/mm3 (4.6-6.20); Red Cell Distribution Width 15.5 % (11.5-14.5); White Blood Count 6.7 K/mm3 (4.5-10.0)
[2021-05-21 05:44] LABS: Albumin Level 2.9 g/dL (3.5-5.1); Anion Gap 10 mmol/L (8-16); Blood Urea Nitrogen 57 mg/dL (9-20); Calcium 8.3 mg/dL (8.4-10.2); Carbon Dioxide 25 mmol/L (22-30); Chloride 97 mmol/L (98-107); Estimated CRCL calculation 16 ml/min; Estimated Glomerular Filt Rate 8; Glucose 132 mg/dL (65-110); Phosphorus 5.2 mg/dL (2.5-4.5); Potassium 5.4 mmol/L (3.4-5.0); Sodium 132 mmol/L (137-145)
[2021-05-21] MEDS: guaiFENesin 12 HR 600 MG TABCR PO ×2 (08:12→20:21)
[2021-05-21] MEDS: FAMOTIDINE 20 MG TABLET PO ×2 (08:12→20:21)
[2021-05-21] MEDS: ESCITALOPRAM OXALATE 5 MG TABLET PO (08:12)
[2021-05-21] MEDS: busPIRone HCL 5 MG TABLET PO ×3 (08:13→17:53)
[2021-05-21] MEDS: ESCITALOPRAM OXALATE 10 MG TABLET PO (08:13)
[2021-05-21] MEDS: buPROPion HCL XL (24 HR) 150 MG TABCR PO (08:13)
[2021-05-21] MEDS: MIDODRINE HCL 10 MG TABLET PO ×3 (08:13→17:53)
[2021-05-21] MEDS: THERAPEUTIC MULTIVITAMINS/MINERALS TAB (*BKC) 1 TABLET PO (08:13)
[2021-05-21] MEDS: ASCORBIC ACID 500 MG TABLET PO ×2 (08:13→17:54)
[2021-05-21] MEDS: CYANOCOBALAMIN 1,000 MCG TABLET 1000 MCG PO (08:13)
[2021-05-21] MEDS: INSULIN GLARGINE (*BKC) 100 UNITS/ML 15 UNITS SUB-Q ×2 (08:14→21:45)
[2021-05-21] MEDS: DESONIDE 0.05% CREAM 15 GM TUBE 1 APPLIC TOPICAL ×2 (08:14→20:20)
[2021-05-21] MEDS: TOLNAFTATE 1% POWDER 45 GM BTL 1 APPLIC TOPICAL ×2 (08:18→20:21)
[2021-05-21] MEDS: EUCERIN CREAM 120 GM JAR 1 APPLIC TOPICAL ×2 (08:18→17:54)
[2021-05-21] MEDS: MUPIROCIN 2% OINT 22 GM TUBE 1 APPLIC TOPICAL ×2 (08:18→20:20)
[2021-05-21 08:54] LABS: Glucose Point of Care 117 mg/dl (65-105)
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
--- NOTE | 2021-05-21 09:45 | PCRCNOTE ---
original note by Erika RT at 23:11 was entered on the wrong patient. Amended to reflect the correct note.
--- NOTE | 2021-05-21 09:55 | PM.PNNEP ---
Progress Note: A&P Assessment and Plan (1) REJI (acute kidney injury): Code(s): N17.9 - Acute kidney failure, unspecified Status: Acute Assessment and Plan: Jimenez has acute kidney injury. This is on top of normal kidney function renal ultrasound shows normal kidneys and a decompressed bladder with the Guerrero catheter there in. Urine eosinophils negative. urine electrolytes non pre renal. Urinalysis is fairly bland urine output is meager. even after 2 mg of Bumex. I think we can stop this this is probably ATN. his platelet count is low. Blood cultures are negative. LDH is normal. Pathology reviewing smear. It is still listed is pending. I doubt if this is TTP. Over control of blood pressure is a possibility. TSH and cortisol are okay. He is on midodrine and off any antihypertensives. CPK is normal. the patient will get another dialysis treatment today. Will check a renal scan for blood flow. (2) Acute on chronic respiratory failure with hypoxia and hypercapnia: Code(s): J96.21 - Acute and chronic respiratory failure with hypoxia; J96.22 - Acute and chronic respiratory failure with hypercapnia Status: Acute Assessment and Plan: The patient has morbid obesity and sleep apnea. (3) Closed fracture nasal bone: Code(s): S02.2XXA - Fracture of nasal bones, initial encounter for closed fracture Status: Acute Assessment and Plan: Supportive care Appreciate ENT note (4) Hypertension: Qualifiers: Hypertension type: essential hypertension Qualified Code(s): I10 - Essential (primary) hypertension Code(s): I10 - Essential (primary) hypertension Status: Acute Assessment and Plan: blood pressure Is running between 100 and 120. Cortisol level is okay (5) Obstructive sleep apnea: Code(s): G47.33 - Obstructive sleep apnea (adult) (pediatric) Status: Acute Assessment and Plan: use the BiPAP machine last night and did well. (6) Coronary artery disease: Code(s): I25.10 - Atherosclerotic heart disease of [place] coronary artery without angina pectoris Status: Acute Assessment and Plan: is no chest pain currently (7) Insulin dependent type 2 diabetes mellitus: Code(s): E11.9 - Type 2 diabetes mellitus without complications; Z79.4 - skilled nursing (current) use of insulin Status: Acute Assessment and Plan: on Accu-Cheks and sliding-scale insulin Subjective Date/time seen: 05/21/21 09:55 Interval history: Patient feels about the same today. Breathing okay. Facial rash seems better still has some asterixis, may be a little better Exam Narrative: WDWN in NAD skin same facial rash. head ncat lungs decreased breath sounds at the bases. cor reg no rub o gallop abd BS+ nontender and soft ext 2+ edema. neuro: Positive asterixis, maybe a little better Objective Data Vital Signs Vital Signs: Vital Signs - 24 hr 05/20/21 10:00 05/20/21 11:21 05/20/21 12:00 Temperature 36.8 C Pulse Rate 81 81 Respiratory Rate 22 H Blood Pressure 155/70 H Pulse Oximetry 95 97 05/20/21 14:00 05/20/21 14:25 05/20/21 15:43 Temperature 37.2 C 36.8 C Pulse Rate 83 81 90 Respiratory Rate 22 H 14 Blood Pressure 135/56 L 119/47 L Pulse Oximetry 97 92 05/20/21 15:55 05/20/21 16:10 05/20/21 16:25 Temperature Pulse Rate 85 87 88 Respiratory Rate 16 20 20 Blood Pressure 132/51 L 128/52 L 132/50 L Pulse Oximetry 97 94 93 05/20/21 17:00 05/20/21 17:20 05/20/21 17:22 Temperature 35.9 C L Pulse Rate 86 84 Respiratory Rate 18 18 Blood Pressure 119/52 L 116/62 Pulse Oximetry 94 95 91 05/20/21 18:00 05/20/21 20:00 05/20/21 20:46 Temperature 36.6 C Pulse Rate 86 89 89 Respiratory Rate 22 H Blood Pressure 167/99 H 157/55 H Pulse Oximetry 92 05/20/21 21:02 05/20/21 21:15 05/20/21 21:30 Temperatu
--- NOTE | 2021-05-21 10:48 | WPDANESPN ---
Anes - Prog Note Post-Op Date/Time: 05/21/21 10:48 Cardiovascular status: normal Respiratory status: normal Airway patency: baseline Mental status: baseline Post-Op hydration status: normal Vital Signs: Last Vital Signs Temp 36.6 C 05/21/21 08:00 Pulse 77 05/21/21 08:00 Resp 22 H 05/21/21 08:00 BP 103/47 L 05/21/21 08:00 Pulse Ox 97 05/21/21 08:00 Pain Score (VAS): 0 I/O: Intake & Output 05/20/21 05/21/21 05/21/21 23:59 07:59 15:59 Intake Total 240 150 480 Output Total 25 3500 Balance 215 -2410 480 Laboratory Tests 05/21/21 05:00 05/21/21 05:00 05/18/21 05/20/21 05/20/21 18:52 10:27 12:09 WBC RBC Hgb Hct MCV MCH MCHC RDW Plt Count MPV Sodium Potassium Chloride Carbon Dioxide Anion Gap BUN Creatinine Estim Creat Clear Calc Estimated GFR Glucose POC Capillary Glucose 123 H Calcium Phosphorus Albumin Tot Complement (CH50) >60 H Blood Type AB Positive Antibody Screen Negative 05/20/21 05/20/21 05/20/21 14:29 16:16 17:46 WBC RBC Hgb Hct MCV MCH MCHC RDW Plt Count MPV Sodium Potassium Chloride Carbon Dioxide Anion Gap BUN Creatinine Estim Creat Clear Calc Estimated GFR Glucose POC Capillary Glucose 120 H 119 H 115 H Calcium Phosphorus Albumin Tot Complement (CH50) Blood Type Antibody Screen 05/20/21 05/21/21 05/21/21 20:05 05:00 05:00 WBC 6.7 RBC 3.83 L Hgb 10.1 L Hct 33.7 L MCV 88.0 MCH 26.4 MCHC 30.0 L RDW 15.5 H Plt Count 136 L MPV 9.2 Sodium 132 L Potassium 5.4 H Chloride 97 L Carbon Dioxide 25 Anion Gap 10 BUN 57 H Creatinine 7.20 H Estim Creat Clear Calc 16 Estimated GFR 8 L Glucose 132 H POC Capillary Glucose 179 H Calcium 8.3 L Phosphorus 5.2 H Albumin 2.9 L Tot Complement (CH50) Blood Type Antibody Screen 05/21/21 08:03 WBC RBC Hgb Hct MCV MCH MCHC RDW Plt Count MPV Sodium Potassium Chloride Carbon Dioxide Anion Gap BUN Creatinine Estim Creat Clear Calc Estimated GFR Glucose POC Capillary Glucose 117 H Calcium Phosphorus Albumin Tot Complement (CH50) Blood Type Antibody Screen Microbiology 05/18/21 17:38 Sputum Sputum Culture - Final Post-procedural complaints: none Patient Feedback: Patient satisfied with anesthetic care.
--- NOTE | 2021-05-21 11:49 | PCOTNOTE ---
OT evaluation attempted. patient in dialysis at this time. Will attempt at later time.
[2021-05-21 12:45] LABS: Glucose Point of Care 156 mg/dl (65-105)
[2021-05-21] MEDS: HEPARIN SODIUM 5,000 UNITS/ML VIAL 5000 UNITS SUB-Q ×2 (12:46→20:21)
[2021-05-21] MEDS: ASPIRIN 81 MG ENTERIC TABLET PO (12:48)
[2021-05-21 13:41] LABS: Kappa\\Lambda Light Chains 1.66 (0.26-1.65); Lambda Light Chain 111.3 mg/L (5.7-26.3)
--- NOTE | 2021-05-21 14:30 | PCNWS ---
Weekly nutritional screen. Patient is tolerating current diet with adequate intake. No weight loss reported. No nutritional needs at this time.
--- NOTE | 2021-05-21 15:22 | PM.IMPN ---
Progress Note: A&P Assessment and Plan (1) Acute on chronic respiratory failure with hypoxia and hypercapnia: Code(s): J96.21 - Acute and chronic respiratory failure with hypoxia; J96.22 - Acute and chronic respiratory failure with hypercapnia Status: Acute Assessment and Plan: CXR on admission showing stable appearance of prominent bilateral paracardial fat pads and mild lingular atelectasis but no acute cardiopulmonary disease. ABG 7.136/94/56 on 3.5L on admission. NIV started and ABG improved to 7.32/66/126. Patient feeling much better. BiPAP held briefly due to his nasal fractures until cleared by ENT. ABG 05/20 showing 7.32/59/105 35% FiO2. Respiratory failure related to TAWANDA. CXR reviewed 05/20 showing diffuse bilateral lung disease relatively sparing the left upper lung zone with improvement in the prior perihilar opacities in the right midlung zone felt related to fluid overload from his oliguric REJI. Echo showing EF 60-65% wit Grade I diastolic dysfunction, moderate TR and moderate pulmonary HTN. Speech therapy showing patient can swallow safely. BCx NGTD. Sputum NGTD. Continue nebs. HD to control fluid status. Wean O2 as tolerated. (2) REJI (acute kidney injury): Code(s): N17.9 - Acute kidney failure, unspecified Status: Acute Assessment and Plan: Cr 0.8 on admission. No contrast exposure. BP soft at times but Cr rise began before the HoTN. NucMed Renal Scan consistent with ATN. ATN related to the severe respiratory failure? Urine eos negative. Renal US normal. TCK and Complement normal. Cr climbed to 7.2 today with Potassium 5.4. Tunnelled HD catheter placed 05/20 with HD yesterday and again today. Bumex IV stopped. Continue Midodrine. Nephrology consulted and appreciate their input. (3) Altered mental status: Code(s): R41.82 - Altered mental status, unspecified Status: Acute Assessment and Plan: CT brain showing no acute intracranial abnormalities. AMS felt related to the hypercapnia. Mental status has improved. Continue current respiratory care. (4) Closed fracture nasal bone: Code(s): S02.2XXA - Fracture of nasal bones, initial encounter for closed fracture Status: Acute Assessment and Plan: Patient had a fall most likely related to his severe respiratory failure. CT scan shows bilateral nasal bone fractures and right periorbital hematoma. BiPAP was stopped due to the concern about the nasal fractures. Pulmonary recommends ENT consult and ENT was able to see the patient. ENT did not feel patient had a radiographic identifiable facial fracture although could not exclude occult fractures. It was felt that if the patient requires positive pressure ventilation, then this may be acceptable risk given the absence of radiographic findings of facial or orbital fractures. If the patient develops significant facial edema and crepitus or orbital edema and crepitus or neurologic changes after starting positive-pressure ventilation, then we will immediately stop the positive pressure ventilation. RN was informed and what to watch for. Appreciate ENT input. We resumed NIV and he appears to be tolerating this. (5) Facial hematoma: Code(s): S00.83XA - Contusion of other part of head, initial encounter Status: Acute Assessment and Plan: Secondary to fall and nasal fracture. ENT evaluation as mentioned above. Supportive care. (6) Obstructive sleep apnea: Code(s): G47.33 - Obstructive sleep apnea (adult) (pediatric) Status: Acute Assessment and Plan: The notes state patient is noncompliant with NIV. Patient states he has never been offered NIV at the facility even though he has a long history of sleep apnea. Plan for NIV unit at the facility - per Care Coord, it will need to be BiPAP. As above. (7) Insulin dependent type 2 diabetes mellitus: Code(s): E11.9 - Type 2 diabetes mellitus without complications; Z
[2021-05-21 16:10] LABS: Glucose Point of Care 171 mg/dl (65-105)
[2021-05-21] MEDS: MIRTAZAPINE 30 MG TABLET PO (20:21)
[2021-05-21] MEDS: MELATONIN 3 MG TABLET PO (20:21)
[2021-05-21] MEDS: ATORVASTATIN 10 MG TABLET PO (20:21)
[2021-05-21 21:42] LABS: Glucose Point of Care 163 mg/dl (65-105)
[2021-05-21 21:48] LABS: Glucose Point of Care 185 mg/dl (65-105)
[2021-05-22] VITALS (17 sets, daily range): BP systolic 95–158; BP diastolic 51–122; PULSE 64–98; RESP 20–31; TEMP 36.5–36.9; O2SAT 20–98
[2021-05-22 04:27] LABS: Alveolar/Arterial O2 Gradient 62.3 mmHg; Base Excess ABG 3.4 mEq/l (+/-2.0); Carboxyhemoglobin 1.1 % THb (0-2.0); Fractional Inspired Oxygen 35 %; HCO3 ABG 31.2 mEq/l (22.0-26.0); Methemoglobin ABG 0.3 %THb (0-1.5); Oxygen Content ABG 21.1 %vol (16.0-22.0); Oxygen Saturation ABG 97.9 % (95.0-100.0); Oxyhemoglobin 96.3 % THb (90.0-100.0); PO2 ABG 116.7 mmHg (80.0-100.0); PO2 FiO2 Ratio Arterial Blood 3.33 %; Reduced Hemoglobin 2.3 %THb (0-5.0); Total Hemoglobin 15.5 g/dL (12.0-18.0); pH ABG 7.329 (7.350-7.450)
[2021-05-22 04:30] LABS: Device OTHER DEVICE; Modified Allen's Test Pass; PCO2 ABG 60.7 mmHg (35.0-45.0); Site Drawn LEFT RADIAL
[2021-05-22 07:02] LABS: Basophils Percent Auto 0.1 % (0.2-1.2); Eosinophils Absolute Auto 0.2 K/mm3 (0-0.3); Eosinophils Percent Auto 2.6 % (0-4.4); Hematocrit 34.9 % (42.0-52.0); Hemoglobin 10.3 g/dL (14.0-18.0); Immature Granulocyte Absolute 0.07 K/mm3 (0.00-0.031); Immature Granulocyte Percent A 0.9 % (0-0.5); Lymphocytes Absolute Auto 1.14 K/mm3 (0.9-3.2); Lymphocytes Percent Auto 13.9 % (18.3-44.2); Mean Corpuscular HGB Conc 29.5 g/dl (32-36); Mean Corpuscular Hemoglobin 26.4 pg (26-34); Mean Corpuscular Volume 89.5 fl (80-100); Mean Platelet Volume 8.8 fl (7.4-10.4); Monocytes Absolute Auto 1.3 K/mm3 (0.1-0.6); Monocytes Percent Auto 15.2 % (2.6-8.5); Neutrophils Absolute Auto 5.5 K/mm3 (1.3-6.7); Neutrophils Percent Auto 67.3 % (45.5-73.1); Platelet Count Result 144 k/mm3 (150-375); White Blood Count 8.2 K/mm3 (4.5-10.0)
[2021-05-22 07:14] LABS: Albumin Level 3.2 g/dL (3.5-5.1); Anion Gap 10 mmol/L (8-16); Blood Urea Nitrogen 57 mg/dL (9-20); Calcium 8.7 mg/dL (8.4-10.2); Carbon Dioxide 24 mmol/L (22-30); Chloride 101 mmol/L (98-107); Estimated CRCL calculation 16 ml/min; Estimated Glomerular Filt Rate 8; Glucose 150 mg/dL (65-110); Magnesium 2.1 mg/dL (1.6-2.3); Phosphorus 4.8 mg/dL (2.5-4.5); Potassium 5.4 mmol/L (3.4-5.0); Sodium 135 mmol/L (137-145)
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
[2021-05-22 07:57] LABS: Glucose Point of Care 154 mg/dl (65-105)
--- NOTE | 2021-05-22 09:12 | PM.PNNEP ---
Progress Note: A&P Assessment and Plan (1) REJI (acute kidney injury): Code(s): N17.9 - Acute kidney failure, unspecified Status: Acute Assessment and Plan: Jimenez has acute kidney injury. This is on top of normal kidney function renal ultrasound shows normal kidneys and a decompressed bladder with the Guerrero catheter there in. Urine eosinophils negative. urine electrolytes non pre renal. Urinalysis is fairly bland His renal scan shows uptake without excretion, consistent with ATN. urine output a little bit better yesterday at 2:50 a.m.. There is some urine in his Guerrero bag now. this is probably ATN. his platelet count is low. Blood cultures are negative. LDH is normal. Pathology Result showed no she is to sites. Over control of blood pressure is a possibility. TSH and cortisol are okay. He is on midodrine and off any antihypertensives. Blood pressure is a little bit better in the 120s and 130s. Continue midodrine CPK is normal. the patient will get another dialysis tomorrow (2) Acute on chronic respiratory failure with hypoxia and hypercapnia: Code(s): J96.21 - Acute and chronic respiratory failure with hypoxia; J96.22 - Acute and chronic respiratory failure with hypercapnia Status: Acute Assessment and Plan: The patient has morbid obesity and sleep apnea. (3) Closed fracture nasal bone: Code(s): S02.2XXA - Fracture of nasal bones, initial encounter for closed fracture Status: Acute Assessment and Plan: Supportive care Appreciate ENT note (4) Hypertension: Qualifiers: Hypertension type: essential hypertension Qualified Code(s): I10 - Essential (primary) hypertension Code(s): I10 - Essential (primary) hypertension Status: Acute Assessment and Plan: blood pressure Is running between 120 and 140. Cortisol level is okay (5) Obstructive sleep apnea: Code(s): G47.33 - Obstructive sleep apnea (adult) (pediatric) Status: Acute Assessment and Plan: use the BiPAP machine last night and did well. 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 Breathing okay. Facial rash Looks better. Much less erythematous. Eight well today. Exam Narrative: WDWN in NAD skin same facial rash. head ncat lungs decreased breath sounds at the bases. cor reg no rub o gallop abd BS+ nontender ext 2+ edema and no cyanosis neuro: Positive asterixis, maybe a little better Objective Data Vital Signs Vital Signs: Vital Signs - 24 hr 05/21/21 09:15 05/21/21 09:30 05/21/21 09:45 Temperature Pulse Rate 85 81 78 Respiratory Rate Blood Pressure 158/85 H 154/79 H 142/70 H Pulse Oximetry 05/21/21 10:00 05/21/21 10:30 05/21/21 10:45 Temperature Pulse Rate 82 83 86 Respiratory Rate Blood Pressure 140/71 135/67 137/70 Pulse Oximetry 05/21/21 11:00 05/21/21 11:15 05/21/21 11:30 Temperature Pulse Rate 83 86 81 Respiratory Rate Blood Pressure 142/74 H 124/69 144/74 H Pulse Oximetry 05/21/21 11:45 05/21/21 11:50 05/21/21 12:00 Temperature 36.6 C 37.1 C Pulse Rate 84 85 83 Respiratory Rate 18 20 Blood Pressure 141/62 H 146/75 H 136/67 Pulse Oximetry 91 05/21/21 13:00 05/21/21 14:00 05/21/21 14:59 Temperature Pulse Rate 91 87 Respiratory Rate 20 Blood Pressure Pulse Oximetry 95 95 05/21/21
--- NOTE | 2021-05-22 09:46 | PM.IMPN ---
Progress Note: A&P Assessment and Plan (1) REJI (acute kidney injury): Code(s): N17.9 - Acute kidney failure, unspecified Status: Acute Assessment and Plan: Cr 0.8 on admission. No contrast exposure. BP soft at times but Cr rise began before the HoTN. NucMed Renal Scan consistent with ATN. ATN related to the severe respiratory failure? Urine eos negative. Renal US normal. TCK and Complement normal. Cr climbed to 7.2. Tunnelled HD catheter placed 05/20 with HD on 05/20, 05/21. Potassium 5.4 today. Bumex IV stopped. Continue Midodrine. Nephrology consulted and appreciate their input. (2) Acute on chronic respiratory failure with hypoxia and hypercapnia: Code(s): J96.21 - Acute and chronic respiratory failure with hypoxia; J96.22 - Acute and chronic respiratory failure with hypercapnia Status: Acute Assessment and Plan: CXR on admission showing stable appearance of prominent bilateral paracardial fat pads and mild lingular atelectasis but no acute cardiopulmonary disease. ABG 7.136/94/56 on 3.5L on admission. NIV started and ABG improved to 7.32/66/126. Patient feeling much better. BiPAP held briefly due to his nasal fractures until cleared by ENT. Respiratory failure related to TAWANDA. CXR reviewed 05/20 showing diffuse bilateral lung disease felt related to fluid overload from his oliguric REJI. Echo showing EF 60-65% wit Grade I diastolic dysfunction, moderate TR and moderate pulmonary HTN. Speech therapy showing patient can swallow safely. BCx NGTD. Sputum negative. ABG today showing 7.33/61/117. Continue nebs. Continue NIV with sleep. HD to control fluid status. Currently on O2 at 2L (3) Altered mental status: Code(s): R41.82 - Altered mental status, unspecified Status: Acute Assessment and Plan: CT brain showing no acute intracranial abnormalities. AMS felt related to the hypercapnia. Mental status has improved. Continue current respiratory care. (4) Closed fracture nasal bone: Code(s): S02.2XXA - Fracture of nasal bones, initial encounter for closed fracture Status: Acute Assessment and Plan: Patient had a fall most likely related to his severe respiratory failure. CT scan shows bilateral nasal bone fractures and right periorbital hematoma. BiPAP was stopped due to the concern about the nasal fractures. ENT consulted. ENT did not feel patient had a radiographic identifiable facial fracture although could not exclude occult fractures. It was felt that if the patient requires NIV, then this may be acceptable risk given the absence of radiographic findings of facial or orbital fractures. If the patient develops significant facial edema and crepitus or orbital edema and crepitus or neurologic changes after starting positive-pressure ventilation, then we will immediately stop the this. RN was informed and what to watch for. Appreciate ENT input. We resumed NIV and he appears to be tolerating this. (5) Facial hematoma: Code(s): S00.83XA - Contusion of other part of head, initial encounter Status: Acute Assessment and Plan: Secondary to fall and nasal fracture. ENT evaluation as mentioned above. Supportive care. (6) Obstructive sleep apnea: Code(s): G47.33 - Obstructive sleep apnea (adult) (pediatric) Status: Acute Assessment and Plan: The notes state patient is noncompliant with NIV. Patient states he has never been offered NIV at the facility even though he has a long history of sleep apnea. Plan for NIV unit at the facility - per Care Coord, it will need to be BiPAP. As above. 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 The patient's blood glucose was reviewed on 05/22 Glucose remains well controlled. Continue Lantus at current dose. Co
[2021-05-22] MEDS: ASPIRIN 81 MG ENTERIC TABLET PO (10:54)
[2021-05-22] MEDS: EUCERIN CREAM 120 GM JAR 1 APPLIC TOPICAL ×2 (10:54→17:13)
[2021-05-22] MEDS: MIDODRINE HCL 10 MG TABLET PO ×2 (10:54→17:13)
[2021-05-22] MEDS: FAMOTIDINE 20 MG TABLET PO ×2 (10:54→21:47)
[2021-05-22] MEDS: TOLNAFTATE 1% POWDER 45 GM BTL 1 APPLIC TOPICAL ×2 (10:54→21:48)
[2021-05-22] MEDS: guaiFENesin 12 HR 600 MG TABCR PO ×2 (10:54→22:02)
[2021-05-22] MEDS: MUPIROCIN 2% OINT 22 GM TUBE 1 APPLIC TOPICAL ×2 (10:54→21:48)
[2021-05-22] MEDS: SENNA/DOCUSATE SODIUM TABLET 1 TAB PO (10:54)
[2021-05-22] MEDS: ESCITALOPRAM OXALATE 5 MG TABLET PO (10:55)
[2021-05-22] MEDS: buPROPion HCL XL (24 HR) 150 MG TABCR PO (10:55)
[2021-05-22] MEDS: THERAPEUTIC MULTIVITAMINS/MINERALS TAB (*BKC) 1 TABLET PO (10:55)
[2021-05-22] MEDS: ASCORBIC ACID 500 MG TABLET PO ×2 (10:55→17:13)
[2021-05-22] MEDS: HEPARIN SODIUM 5,000 UNITS/ML VIAL 5000 UNITS SUB-Q ×2 (10:55→21:49)
[2021-05-22] MEDS: DESONIDE 0.05% CREAM 15 GM TUBE 1 APPLIC TOPICAL ×2 (10:55→21:48)
[2021-05-22] MEDS: busPIRone HCL 5 MG TABLET PO ×2 (10:55→17:13)
[2021-05-22] MEDS: ESCITALOPRAM OXALATE 10 MG TABLET PO (10:56)
[2021-05-22] MEDS: CYANOCOBALAMIN 1,000 MCG TABLET 1000 MCG PO (10:56)
[2021-05-22] MEDS: INSULIN GLARGINE (*BKC) 100 UNITS/ML 15 UNITS SUB-Q ×2 (10:57→22:04)
[2021-05-22 11:51] LABS: Glucose Point of Care 233 mg/dl (65-105)
[2021-05-22] MEDS: INSULIN ASPART (*BKC) 100 UNITS/ML SUB-Q (11:53)
[2021-05-22 12:14] LABS: Complement Total CH50 >60 U/mL (31-60)
--- NOTE | 2021-05-22 15:06 | PCRCNOTE ---
Pt was being arranged with [facility] unit with [facility]. His permanent residence is in a SNF, [facility]. Pt decided he wanted to go back there, but the [facility] unit is not an accepted unit there, have to consider BIPAP. Once pt is arranged with BIPAP settings, SNF will set up/service pt once he is back at facility.
[2021-05-22 16:04] LABS: Glucose Point of Care 188 mg/dl (65-105)
[2021-05-22 21:32] LABS: Glucose Point of Care 271 mg/dl (65-105)
[2021-05-22] MEDS: ATORVASTATIN 10 MG TABLET PO (21:47)
[2021-05-22] MEDS: MELATONIN 3 MG TABLET PO (21:49)
[2021-05-22] MEDS: MIRTAZAPINE 30 MG TABLET PO (21:49)
[2021-05-22] MEDS: HYDROcodone/acetaminophen (*CRX) 5-325 MG TABLET 1 TAB PO (22:02)
[2021-05-22] MEDS: traZODone HCL 50 MG TABLET 150 MG PO (22:15)
[2021-05-23] VITALS (16 sets, daily range): BP systolic 100–147; BP diastolic 32–74; PULSE 72–92; RESP 18–26; TEMP 36.6–37.1; O2SAT 94–100
[2021-05-23] MEDS: HYDROcodone/acetaminophen (*CRX) 5-325 MG TABLET 1 TAB PO ×3 (03:46→15:23)
[2021-05-23 05:47] LABS: Albumin Level 3.4 g/dL (3.5-5.1); Anion Gap 7 mmol/L (8-16); Blood Urea Nitrogen 66 mg/dL (9-20); Calcium 8.8 mg/dL (8.4-10.2); Carbon Dioxide 27 mmol/L (22-30); Chloride 101 mmol/L (98-107); Estimated CRCL calculation 13 ml/min; Estimated Glomerular Filt Rate 6; Glucose 171 mg/dL (65-110); Phosphorus 5.6 mg/dL (2.5-4.5); Potassium 5.6 mmol/L (3.4-5.0); Sodium 135 mmol/L (137-145)
[2021-05-23 08:26] LABS: Glucose Point of Care 153 mg/dl (65-105)
[2021-05-23] MEDS: THERAPEUTIC MULTIVITAMINS/MINERALS TAB (*BKC) 1 TABLET PO (09:45)
[2021-05-23] MEDS: MIDODRINE HCL 10 MG TABLET PO ×3 (09:45→16:52)
[2021-05-23] MEDS: SENNA/DOCUSATE SODIUM TABLET 1 TAB PO (09:45)
[2021-05-23] MEDS: guaiFENesin 12 HR 600 MG TABCR PO ×2 (09:45→20:16)
[2021-05-23] MEDS: FAMOTIDINE 20 MG TABLET PO ×2 (09:45→20:16)
[2021-05-23] MEDS: CYANOCOBALAMIN 1,000 MCG TABLET 1000 MCG PO (09:46)
[2021-05-23] MEDS: ASCORBIC ACID 500 MG TABLET PO ×2 (09:46→16:52)
[2021-05-23] MEDS: busPIRone HCL 5 MG TABLET PO ×3 (09:46→16:52)
[2021-05-23] MEDS: HEPARIN SODIUM 5,000 UNITS/ML VIAL 5000 UNITS SUB-Q ×2 (09:46→20:17)
[2021-05-23] MEDS: ESCITALOPRAM OXALATE 10 MG TABLET PO (09:46)
[2021-05-23] MEDS: buPROPion HCL XL (24 HR) 150 MG TABCR PO (09:46)
[2021-05-23] MEDS: ESCITALOPRAM OXALATE 5 MG TABLET PO (09:46)
[2021-05-23] MEDS: ASPIRIN 81 MG ENTERIC TABLET PO (09:46)
[2021-05-23] MEDS: INSULIN GLARGINE (*BKC) 100 UNITS/ML 15 UNITS SUB-Q ×2 (09:46→20:20)
[2021-05-23] MEDS: TOLNAFTATE 1% POWDER 45 GM BTL 1 APPLIC TOPICAL ×2 (11:09→20:15)
[2021-05-23] MEDS: MUPIROCIN 2% OINT 22 GM TUBE 1 APPLIC TOPICAL ×2 (11:10→20:15)
[2021-05-23] MEDS: DESONIDE 0.05% CREAM 15 GM TUBE 1 APPLIC TOPICAL ×2 (11:10→20:16)
[2021-05-23] MEDS: EUCERIN CREAM 120 GM JAR 1 APPLIC TOPICAL ×2 (11:10→18:08)
--- NOTE | 2021-05-23 11:27 | PCPTNOTE ---
Attempted therapy session at 11:15, RN with Pt changing bandages. Will attempt again.
--- NOTE | 2021-05-23 11:50 | PM.PNNEP ---
Progress Note: A&P Assessment and Plan (1) REJI (acute kidney injury): Code(s): N17.9 - Acute kidney failure, unspecified Status: Acute Assessment and Plan: Jimenez has acute kidney injury. This is on top of normal kidney function renal ultrasound shows normal kidneys and a decompressed bladder with the Guerrero catheter there in. Urine eosinophils negative. urine electrolytes non pre renal. Urinalysis is fairly bland His renal scan shows uptake without excretion, consistent with ATN. Urine output is not very good. this is probably ATN. his platelet count is low. Blood cultures are negative. LDH is normal. Pathology Result showed no she is to sites. Renal scan showed uptake without excretion consistent with ATN as well Patient is going to get dialysis today. We will but remove more fluid. (2) Acute on chronic respiratory failure with hypoxia and hypercapnia: Code(s): J96.21 - Acute and chronic respiratory failure with hypoxia; J96.22 - Acute and chronic respiratory failure with hypercapnia Status: Acute Assessment and Plan: The patient has morbid obesity and sleep apnea. (3) Closed fracture nasal bone: Code(s): S02.2XXA - Fracture of nasal bones, initial encounter for closed fracture Status: Acute Assessment and Plan: Supportive care Appreciate ENT note (4) Hypertension: Qualifiers: Hypertension type: essential hypertension Qualified Code(s): I10 - Essential (primary) hypertension Code(s): I10 - Essential (primary) hypertension Status: Acute Assessment and Plan: Systolic blood pressure running mostly in the 130s and 140s. Cortisol level is okay (5) Obstructive sleep apnea: Code(s): G47.33 - Obstructive sleep apnea (adult) (pediatric) Status: Acute Assessment and Plan: use the BiPAP machine last night and did well. (6) Coronary artery disease: Code(s): I25.10 - Atherosclerotic heart disease of [place] coronary artery without angina pectoris Status: Acute Assessment and Plan: is no chest pain currently (7) Insulin dependent type 2 diabetes mellitus: Code(s): E11.9 - Type 2 diabetes mellitus without complications; Z79.4 - long-term (current) use of insulin Status: Acute Assessment and Plan: on Accu-Cheks and sliding-scale insulin Subjective Date/time seen: 05/23/21 11:50 Interval history: Patient feels about the same today. Breathing okay. Eating well. Due for dialysis today Exam Narrative: WDWN in NAD skin same facial rash. head ncat lungs decreased breath sounds at the bases. cor reg no rub o gallop abd BS+ nontender and soft ext 2+ edema and no cyanosis neuro: Positive asterixis, maybe a little better Objective Data Vital Signs Vital Signs: Vital Signs - 24 hr 05/22/21 12:00 05/22/21 14:00 05/22/21 16:00 Temperature 36.7 C 36.6 C Pulse Rate 98 88 84 Respiratory Rate 22 H 22 H Blood Pressure 158/72 H 128/55 L Pulse Oximetry 95 98 05/22/21 18:00 05/22/21 20:00 05/22/21 21:58 Temperature 36.8 C Pulse Rate 88 93 Respiratory Rate 21 H Blood Pressure 141/122 H 142/58 H Pulse Oximetry 97 05/22/21 22:00 05/22/21 23:41 05/22/21 23:49 Temperature 36.9 C Pulse Rate 82 67 88 Respiratory Rate 31 H 20 Blood Pressure 103/51 L Pulse Oximetry 98 93 05/23/21 00:00 05/23/21 01:23 05/23/21 02:00 Temperature Pulse Rate 84 73 81 Respiratory Rate 24 H Blood Pressure Pulse Oximetry 95 97 05/23/21 03:48 05/23/21 04:00 05/23/21 06:00 Temperature 36.6 C Pulse Rate 84 86 76 Respiratory Rate 18 Blood Pressure 140/67 Pulse Oximetry 98 100 05/23/21 08:00 05/23/21 10:00 05/23/21 11:38 Temperature 37.1 C Pulse Rate 80 87 Respiratory Rate 26 H Blood Pressure 133/66 Pulse Oximetry 99 96 Intake/Output Intake/Output: Intake & Output 05/20/21
[2021-05-23 12:24] LABS: Glucose Point of Care 328 mg/dl (65-105)
[2021-05-23] MEDS: INSULIN ASPART (*BKC) 100 UNITS/ML SUB-Q ×2 (12:27→16:52)
--- NOTE | 2021-05-23 13:27 | PCPTNOTE ---
Addendum entered by Estefany Preston PTA 05/23/21 13:28: Error: Note met for Pt in room 232 bed 1. -Estefany Preston PTA Original Note: Patient refused treatment this session. Pt stated I just can't today. I'm too tired and not breathing well. Informed RN. Will continue per POC.
--- NOTE | 2021-05-23 14:36 | PM.IMPN ---
Progress Note: A&P Assessment and Plan (1) Acute on chronic respiratory failure with hypoxia and hypercapnia: Code(s): J96.21 - Acute and chronic respiratory failure with hypoxia; J96.22 - Acute and chronic respiratory failure with hypercapnia Status: Acute Assessment and Plan: CXR on admission showing stable appearance of prominent bilateral paracardial fat pads and mild lingular atelectasis but no acute cardiopulmonary disease. ABG 7.136/94/56 on 3.5L on admission. NIV started and ABG improved to 7.32/66/126. Patient feeling much better. BiPAP held briefly due to his nasal fractures until cleared by ENT. ABG 05/20 showing 7.32/59/105 35% FiO2. Respiratory failure related to TAWANDA. CXR reviewed 05/20 showing diffuse bilateral lung disease relatively sparing the left upper lung zone with improvement in the prior perihilar opacities in the right midlung zone felt related to fluid overload from his oliguric REJI. Echo showing EF 60-65% wit Grade I diastolic dysfunction, moderate TR and moderate pulmonary HTN. Speech therapy showing patient can swallow safely. BCx NGTD. Sputum NGTD. Continue nebs. HD to control fluid status. Wean O2 as tolerated. Is discharged on BiPAP/AVAPS in the nursing facility. See Pulmonary recommendation for discharge (2) REJI (acute kidney injury): Code(s): N17.9 - Acute kidney failure, unspecified Status: Acute Assessment and Plan: Cr 0.8 on admission. No contrast exposure. BP soft at times but Cr rise began before the HoTN. NucMed Renal Scan consistent with ATN. ATN related to the severe respiratory failure? Urine eos negative. Renal US normal. TCK and Complement normal. Cr climbed to 7.2 today with Potassium 5.4. Tunnelled HD catheter placed 05/20 with HD yesterday and again today. Bumex IV stopped. Continue Midodrine. Nephrology consulted and appreciate their input. 05/23 creatinine up to 8.7 today nephrology dialyzing him again today. (3) Altered mental status: Code(s): R41.82 - Altered mental status, unspecified Status: Acute Assessment and Plan: CT brain showing no acute intracranial abnormalities. AMS felt related to the hypercapnia. Mental status has improved. Continue current respiratory care. (4) Closed fracture nasal bone: Code(s): S02.2XXA - Fracture of nasal bones, initial encounter for closed fracture Status: Acute Assessment and Plan: Patient had a fall most likely related to his severe respiratory failure. CT scan shows bilateral nasal bone fractures and right periorbital hematoma. BiPAP was stopped due to the concern about the nasal fractures. Pulmonary recommends ENT consult and ENT was able to see the patient. ENT did not feel patient had a radiographic identifiable facial fracture although could not exclude occult fractures. It was felt that if the patient requires positive pressure ventilation, then this may be acceptable risk given the absence of radiographic findings of facial or orbital fractures. If the patient develops significant facial edema and crepitus or orbital edema and crepitus or neurologic changes after starting positive-pressure ventilation, then we will immediately stop the positive pressure ventilation. RN was informed and what to watch for. Appreciate ENT input. We resumed NIV and he appears to be tolerating this. (5) Facial hematoma: Code(s): S00.83XA - Contusion of other part of head, initial encounter Status: Acute Assessment and Plan: Secondary to fall and nasal fracture. ENT evaluation as mentioned above. Supportive care. (6) Obstructive sleep apnea: Code(s): G47.33 - Obstructive sleep apnea (adult) (pediatric) Status: Acute Assessment and Plan: The notes state patient is noncompliant with NIV. Patient states he has never been offered NIV at the facility even though he has a long history of sleep apnea. Plan for NIV unit at the facility - per [facility]
[2021-05-23 16:07] LABS: Glucose Point of Care 278 mg/dl (65-105)
[2021-05-23] MEDS: ATORVASTATIN 10 MG TABLET PO (20:16)
[2021-05-23] MEDS: MIRTAZAPINE 30 MG TABLET PO (20:18)
[2021-05-23] MEDS: MELATONIN 3 MG TABLET PO (20:18)
[2021-05-23 21:32] LABS: Glucose Point of Care 227 mg/dl (65-105)
--- NOTE | 2021-05-23 22:25 | PCRCNOTE ---
Checked with pt at 22:25. He did not want to go on his AVAPS machine yet. Will check back.
[2021-05-23 23:53] LABS: Hepatitis B Core Ab Total Nonreactive (Nonreactive)
[2021-05-24] VITALS (25 sets, daily range): BP systolic 127–176; BP diastolic 45–86; PULSE 69–98; RESP 18–28; TEMP 36.2–37.1; O2SAT 93–99
[2021-05-24] MEDS: HYDROcodone/acetaminophen (*CRX) 5-325 MG TABLET 1 TAB PO ×2 (01:18→20:47)
[2021-05-24 05:33] LABS: Basophils Percent Auto 0.3 % (0.2-1.2); Eosinophils Absolute Auto 0.3 K/mm3 (0-0.3); Eosinophils Percent Auto 3.4 % (0-4.4); Hematocrit 34.1 % (42.0-52.0); Hemoglobin 9.9 g/dL (14.0-18.0); Immature Granulocyte Absolute 0.08 K/mm3 (0.00-0.031); Immature Granulocyte Percent A 1.1 % (0-0.5); Lymphocytes Absolute Auto 1.11 K/mm3 (0.9-3.2); Lymphocytes Percent Auto 15.1 % (18.3-44.2); Mean Corpuscular Volume 89.5 fl (80-100); Mean Platelet Volume 9.1 fl (7.4-10.4); Monocytes Absolute Auto 1.1 K/mm3 (0.1-0.6); Monocytes Percent Auto 14.8 % (2.6-8.5); Neutrophils Absolute Auto 4.8 K/mm3 (1.3-6.7); Neutrophils Percent Auto 65.3 % (45.5-73.1); Platelet Count Result 160 k/mm3 (150-375); Red Blood Count 3.81 M/mm3 (4.6-6.20); Red Cell Distribution Width 15.8 % (11.5-14.5); White Blood Count 7.4 K/mm3 (4.5-10.0)
[2021-05-24] MEDS: INSULIN GLARGINE (*BKC) 100 UNITS/ML 15 UNITS SUB-Q ×2 (09:11→20:15)
[2021-05-24] MEDS: ASPIRIN 81 MG ENTERIC TABLET PO (09:11)
[2021-05-24] MEDS: HEPARIN SODIUM 5,000 UNITS/ML VIAL 5000 UNITS SUB-Q ×2 (09:11→20:15)
[2021-05-24 09:12] LABS: Glucose Point of Care 157 mg/dl (65-105)
[2021-05-24] MEDS: ESCITALOPRAM OXALATE 10 MG TABLET PO (09:12)
[2021-05-24] MEDS: ASCORBIC ACID 500 MG TABLET PO ×2 (09:12→19:02)
[2021-05-24] MEDS: SENNA/DOCUSATE SODIUM TABLET 1 TAB PO (09:12)
[2021-05-24] MEDS: MIDODRINE HCL 10 MG TABLET PO ×2 (09:12→12:10)
[2021-05-24] MEDS: buPROPion HCL XL (24 HR) 150 MG TABCR PO (09:12)
[2021-05-24] MEDS: ESCITALOPRAM OXALATE 5 MG TABLET PO (09:12)
[2021-05-24] MEDS: THERAPEUTIC MULTIVITAMINS/MINERALS TAB (*BKC) 1 TABLET PO (09:12)
[2021-05-24] MEDS: busPIRone HCL 5 MG TABLET PO ×3 (09:12→19:02)
[2021-05-24] MEDS: FAMOTIDINE 20 MG TABLET PO ×2 (09:12→20:16)
[2021-05-24] MEDS: guaiFENesin 12 HR 600 MG TABCR PO ×2 (09:12→20:18)
[2021-05-24] MEDS: CYANOCOBALAMIN 1,000 MCG TABLET 1000 MCG PO (09:12)
[2021-05-24] MEDS: INSULIN ASPART (*BKC) 100 UNITS/ML SUB-Q (12:10)
[2021-05-24] MEDS: TOLNAFTATE 1% POWDER 45 GM BTL 1 APPLIC TOPICAL ×2 (12:11→20:17)
[2021-05-24] MEDS: MUPIROCIN 2% OINT 22 GM TUBE 1 APPLIC TOPICAL ×2 (12:11→20:18)
[2021-05-24] MEDS: DESONIDE 0.05% CREAM 15 GM TUBE 1 APPLIC TOPICAL ×2 (12:11→20:16)
[2021-05-24] MEDS: EUCERIN CREAM 120 GM JAR 1 APPLIC TOPICAL ×2 (12:11→19:02)
[2021-05-24 12:28] LABS: Glucose Point of Care 202 mg/dl (65-105)
[2021-05-24 13:02] LABS: Anion Gap 10 mmol/L (8-16); Blood Urea Nitrogen 80 mg/dL (9-20); Calcium 9.4 mg/dL (8.4-10.2); Carbon Dioxide 25 mmol/L (22-30); Chloride 101 mmol/L (98-107); Estimated CRCL calculation 11 ml/min; Estimated Glomerular Filt Rate 5; Glucose 148 mg/dL (65-110); Potassium 6.2 mmol/L (3.4-5.0); Sodium 136 mmol/L (137-145)
[2021-05-24] MEDS: DEXTROSE 50% 25 GM/50 ML SYRINGE IV PUSH (13:41)
[2021-05-24] MEDS: INSULIN HUMAN REGULAR (*BKC) 100 UNITS/ML 10 UNITS IV PUSH (13:41)
[2021-05-24 14:13] LABS: Glucose Point of Care 251 mg/dl (65-105)
--- NOTE | 2021-05-24 15:45 | PM.PNNEP ---
Progress Note: A&P Assessment and Plan (1) REJI (acute kidney injury): Code(s): N17.9 - Acute kidney failure, unspecified Status: Acute Assessment and Plan: Jimenez has acute kidney injury. This is on top of normal kidney function renal ultrasound shows normal kidneys and a decompressed bladder with the Guerrero catheter there in. Urine eosinophils negative. urine electrolytes non pre renal. Urinalysis is fairly bland His renal scan shows uptake without excretion, consistent with ATN. Urine output is not very good. the patient has ATN. He is getting dialysis because of rising creatinine. He will get another treatment today. (2) Acute on chronic respiratory failure with hypoxia and hypercapnia: Code(s): J96.21 - Acute and chronic respiratory failure with hypoxia; J96.22 - Acute and chronic respiratory failure with hypercapnia Status: Acute Assessment and Plan: The patient has morbid obesity and sleep apnea. (3) Closed fracture nasal bone: Code(s): S02.2XXA - Fracture of nasal bones, initial encounter for closed fracture Status: Acute Assessment and Plan: Supportive care Appreciate ENT note (4) Hypertension: Qualifiers: Hypertension type: essential hypertension Qualified Code(s): I10 - Essential (primary) hypertension Code(s): I10 - Essential (primary) hypertension Status: Acute Assessment and Plan: Systolic blood pressure running Between 100 and 170. He is on no blood pressure meds. In fact he is on midodrine. Will stop the midodrine and see where his blood pressure is. Cortisol level is okay (5) Obstructive sleep apnea: Code(s): G47.33 - Obstructive sleep apnea (adult) (pediatric) Status: Acute Assessment and Plan: use the BiPAP machine last night and did well. 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 Passing some gas. He feels like he will have a bowel movement soon. No chest pain or shortness of breath Exam Narrative: WDWN in NAD skin improvedfacial rash. head ncat lungs decreased breath sounds at the bases. cor reg no rub or gallop abd BS+ nontender and soft ext 2+ edema and no cyanosis neuro: Positive asterixis, maybe a little better Objective Data Vital Signs Vital Signs: Vital Signs - 24 hr 05/23/21 16:00 05/23/21 17:57 05/23/21 19:41 Temperature 36.6 C 36.6 C Pulse Rate 80 83 76 Respiratory Rate 24 H 21 H Blood Pressure 100/66 106/32 L Pulse Oximetry 95 98 05/23/21 20:00 05/24/21 00:00 05/24/21 01:00 Temperature 36.8 C Pulse Rate 74 74 82 Respiratory Rate 18 Blood Pressure 151/68 H Pulse Oximetry 97 97 98 05/24/21 01:21 05/24/21 04:00 05/24/21 06:00 Temperature 36.7 C Pulse Rate 79 84 83 Respiratory Rate 24 H 20 Blood Pressure 143/62 H Pulse Oximetry 97 98 05/24/21 08:00 05/24/21 08:30 05/24/21 09:54 Temperature 36.2 C L Pulse Rate 85 69 92 Respiratory Rate 20 23 H Blood Pressure 148/78 H Pulse Oximetry 97 97 05/24/21 11:18 05/24/21 12:00 05/24/21 13:49 Temperature 36.4 C L Pulse Rate 97 91 93 Respiratory Rate 20 Blood Pressure 173/79 H Pulse Oximetry 94 99 05/24/21 15:29 Temperature Pulse Rate Respiratory Rate Blood Pressure Pulse Oximetry 95 Intake/Output Intake/Output: Intake & Output 05/21/21 05/22/21 05/23/21 05/24/21 23:59 23:59 23:
--- NOTE | 2021-05-24 16:29 | PM.IMPN ---
Progress Note: A&P Assessment and Plan (1) Acute hyperkalemia: Code(s): E87.5 - Hyperkalemia Status: Acute Assessment and Plan: Potassium 6.2, patient to have hemodialysis today (2) REJI (acute kidney injury): Code(s): N17.9 - Acute kidney failure, unspecified Status: Acute Assessment and Plan: - REJI has been attributed to ATN based on renal scan showing uptake without excretion - normal renal ultrasound - patient has some urine output 600 cc over last 24 hours - patient will need dialysis until renal function improves, will need to arrange for dialysis on discharge. tunnel catheter placed 05/20/2021 - home gabapentin on hold for renal function - Zofran for nausea (3) Facial hematoma: Code(s): S00.83XA - Contusion of other part of head, initial encounter Status: Acute Assessment and Plan: Stable, improving (4) Closed fracture nasal bone: Code(s): S02.2XXA - Fracture of nasal bones, initial encounter for closed fracture Status: Acute Assessment and Plan: ENT evaluated patient, we subsequently resumed noninvasive ventilation which he is tolerating. mild facial edema related to the fall however no orbital involvement at this time and no crepitus. (5) Altered mental status: Code(s): R41.82 - Altered mental status, unspecified Status: Acute Assessment and Plan: mentation back to normal after BiPAP treatment for hypercapnia (6) Acute on chronic respiratory failure with hypoxia and hypercapnia: Code(s): J96.21 - Acute and chronic respiratory failure with hypoxia; J96.22 - Acute and chronic respiratory failure with hypercapnia Status: Acute Assessment and Plan: patient is on 3 L of oxygen. Patient's hypercapnia is improved with BiPAP. Mentation has normalized. echo showed EF 60 65% with grade 1 diastolic dysfunction, moderate TR, moderate pulmonary hypertension. Patient is on nebs (7) Obesity hypoventilation syndrome: Code(s): E66.2 - Morbid (severe) obesity with alveolar hypoventilation Status: Acute Assessment and Plan: mentation is much better now, BiPAP p.r.n. (8) Hypotension: Code(s): I95.9 - Hypotension, unspecified Status: Acute Assessment and Plan: may be related dialysis, patient was on midodrine which we are stopping. reviewed Nephrology notes Additional Plan # chronic conditions - insulin-dependent diabetes: Hold home metformin, sliding scale insulin, hypoglycemia protocol, Accu-Cheks a.c. HS, continue Lantus - hyperlipidemia: Lipitor - hypertension: Lisinopril - psychiatric medications: Lexapro, Wellbutrin, BuSpar, Remeron - held gabapentin for aute renal failure - chronic pain: Continue [place]\ - B12 deficiency: Vitamin B12 - insomnia: Melatonin, trazodone Diet: bland low-fiber diet, may need renal diet with hyperkalemia as we do not have renal recovery DVT prophylaxis: GI prophylaxis: Pepcid, Protonix Code status: Full code Disposition: pending clinical course, Will need to have outpatient dialysis setup Time Spent With Patient Time with patient: 25 - 35 minutes Subjective Date/time seen: 05/24/21 16:29 Patient examined. He has no new complaints today. he is breathing comfortably on 3 L O2 by nasal cannula. he is still making urine 675 mL output over last 24hrs. Patient missed dialysis yesterday and will need dialysis today for hyperkalemia potassium 6.2, BUN 80, Cr 9.6. etiology of acute renal failure is ATN. he denies fever, chills, nausea, vomiting, diarrhea, chest pain, abdominal pain. Review of Systems Review of Systems: All systems reviewed & are unremarkable except as noted in HPI and below Exam Narrative: - GENERAL: Pleasant morbidly obese male in no acute distress - EYES: EOMI. Anicteric. - HENT: Moist mucous membranes. No scleral icterus. Patient has facial flushing. right periorbital edema. - LUNGS: diminished lung shama
[2021-05-24] MEDS: EPOETIN ALFA-EPBX 10,000 UNITS/ML VIAL 10000 UNITS IV PUSH (16:30)
[2021-05-24 19:07] LABS: Glucose Point of Care 152 mg/dl (65-105)
[2021-05-24] MEDS: MELATONIN 3 MG TABLET PO (20:15)
[2021-05-24] MEDS: MIRTAZAPINE 30 MG TABLET PO (20:17)
[2021-05-24] MEDS: ATORVASTATIN 10 MG TABLET PO (20:19)
[2021-05-24 21:23] LABS: Glucose Point of Care 192 mg/dl (65-105)
[2021-05-25] VITALS (14 sets, daily range): BP systolic 131–165; BP diastolic 52–72; PULSE 75–98; RESP 20–23; TEMP 36–37.4; O2SAT 94–98
[2021-05-25] MEDS: HYDROcodone/acetaminophen (*CRX) 5-325 MG TABLET 1 TAB PO ×2 (04:41→20:23)
[2021-05-25 05:53] LABS: Albumin Level 3.2 g/dL (3.5-5.1); Anion Gap 11 mmol/L (8-16); Blood Urea Nitrogen 66 mg/dL (9-20); Calcium 9.1 mg/dL (8.4-10.2); Carbon Dioxide 26 mmol/L (22-30); Chloride 101 mmol/L (98-107); Estimated CRCL calculation 13 ml/min; Estimated Glomerular Filt Rate 6; Glucose 131 mg/dL (65-110); Magnesium 2.1 mg/dL (1.6-2.3); Phosphorus 6.1 mg/dL (2.5-4.5); Potassium 5.7 mmol/L (3.4-5.0); Sodium 138 mmol/L (137-145)
[2021-05-25 08:25] LABS: Glucose Point of Care 137 mg/dl (65-105)
[2021-05-25] MEDS: EUCERIN CREAM 120 GM JAR 1 APPLIC TOPICAL ×2 (08:35→17:02)
[2021-05-25] MEDS: ESCITALOPRAM OXALATE 10 MG TABLET PO (08:36)
[2021-05-25] MEDS: MUPIROCIN 2% OINT 22 GM TUBE 1 APPLIC TOPICAL ×2 (08:36→20:27)
[2021-05-25] MEDS: DESONIDE 0.05% CREAM 15 GM TUBE 1 APPLIC TOPICAL (08:36)
[2021-05-25] MEDS: THERAPEUTIC MULTIVITAMINS/MINERALS TAB (*BKC) 1 TABLET PO (08:36)
[2021-05-25] MEDS: TOLNAFTATE 1% POWDER 45 GM BTL 1 APPLIC TOPICAL ×2 (08:36→20:28)
[2021-05-25] MEDS: ASPIRIN 81 MG ENTERIC TABLET PO (08:36)
[2021-05-25] MEDS: CYANOCOBALAMIN 1,000 MCG TABLET 1000 MCG PO (08:37)
[2021-05-25] MEDS: busPIRone HCL 5 MG TABLET PO ×3 (08:37→17:02)
[2021-05-25] MEDS: buPROPion HCL XL (24 HR) 150 MG TABCR PO (08:37)
[2021-05-25] MEDS: ASCORBIC ACID 500 MG TABLET PO ×2 (08:37→17:03)
[2021-05-25] MEDS: ERGOCALCIFEROL 50,000 UNIT CAPSULE 50000 UNITS PO (08:38)
[2021-05-25] MEDS: SENNA/DOCUSATE SODIUM TABLET 1 TAB PO (08:38)
[2021-05-25] MEDS: guaiFENesin 12 HR 600 MG TABCR PO ×2 (08:38→20:29)
[2021-05-25] MEDS: ESCITALOPRAM OXALATE 5 MG TABLET PO (08:38)
[2021-05-25] MEDS: FAMOTIDINE 20 MG TABLET PO ×2 (08:38→20:29)
[2021-05-25] MEDS: HEPARIN SODIUM 5,000 UNITS/ML VIAL 5000 UNITS SUB-Q ×2 (08:38→20:29)
[2021-05-25] MEDS: INSULIN GLARGINE (*BKC) 100 UNITS/ML 15 UNITS SUB-Q ×2 (08:39→20:43)
--- NOTE | 2021-05-25 12:34 | PM.IMPN ---
Progress Note: A&P Assessment and Plan (1) Acute hyperkalemia: Code(s): E87.5 - Hyperkalemia Status: Acute Assessment and Plan: Potassium 5.7 today. Contnue HD to control electrolyte abnormalities. (2) REJI (acute kidney injury): Code(s): N17.9 - Acute kidney failure, unspecified Status: Acute Assessment and Plan: Cr 0.8 on admission. No contrast exposure. BP soft at times but Cr rise began before the HoTN. NucMed Renal Scan consistent with ATN. ATN related to the severe respiratory failure? or HoTN? Urine eos negative. Renal US normal. TCK and Complement normal. Cr climbed to 7.2. Tunnelled HD catheter placed 05/20 with HD to control electrolytes, fluid status and uremia. Potassium 5.7 today. Nephrology consulted and appreciate their input. (3) Acute on chronic respiratory failure with hypoxia and hypercapnia: Code(s): J96.21 - Acute and chronic respiratory failure with hypoxia; J96.22 - Acute and chronic respiratory failure with hypercapnia Status: Acute Assessment and Plan: CXR on admission showing stable appearance of prominent bilateral paracardial fat pads and mild lingular atelectasis but no acute cardiopulmonary disease. ABG 7.136/94/56 on 3.5L on admission. NIV started and ABG improved to 7.32/66/126. Patient feeling much better. BiPAP held briefly due to his nasal fractures until cleared by ENT. Respiratory failure related to TAWANDA. CXR reviewed 05/20 showing diffuse bilateral lung disease felt related to fluid overload from his oliguric REJI. Echo showing EF 60-65% wit Grade I diastolic dysfunction, moderate TR and moderate pulmonary HTN. Speech therapy showing patient can swallow safely. BCx and Sputum negative. Continue nebs. Continue NIV with sleep. HD to control fluid status. Currently at baseline home O2 at 2-3L (4) Altered mental status: Code(s): R41.82 - Altered mental status, unspecified Status: Acute Assessment and Plan: CT brain showing no acute intracranial abnormalities. AMS felt related to the hypercapnia. Mental status much improved. Continue current respiratory care. (5) Closed fracture nasal bone: Code(s): S02.2XXA - Fracture of nasal bones, initial encounter for closed fracture Status: Acute Assessment and Plan: Patient had a fall most likely related to his severe respiratory failure. CT scan shows bilateral nasal bone fractures and right periorbital hematoma. BiPAP was held until cleared to continue use by ENT. ENT felt patient could go back on BiPAP. If the patient develops significant facial edema and crepitus or orbital edema and crepitus or neurologic changes after starting positive-pressure ventilation, then BiPAP need to be stopped. RN was informed and what to watch for. Appreciate ENT input. (6) Facial hematoma: Code(s): S00.83XA - Contusion of other part of head, initial encounter Status: Acute Assessment and Plan: Secondary to fall and nasal fracture. ENT evaluation as mentioned above. Supportive care. (7) Obesity hypoventilation syndrome: Code(s): E66.2 - Morbid (severe) obesity with alveolar hypoventilation Status: Acute Assessment and Plan: The notes state patient is noncompliant with NIV. BMI 51. Patient states he has never been offered NIV at the facility even though he has a long history of sleep apnea. Plan for NIV unit at the facility - per Care Coord, it will need to be BiPAP. As above. 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 The patient's blood glucose was reviewed on 05/25 Glucose remains well controlled. Continue Lantus at current dose. Continue AccuCheks covering with sliding scale. Hypoglycemia protocol available as needed. (9) Hypotension:
[2021-05-25 12:56] LABS: Glucose Point of Care 182 mg/dl (65-105)
--- NOTE | 2021-05-25 15:55 | PM.PNNEP ---
Progress Note: A&P Assessment and Plan (1) REJI (acute kidney injury): Code(s): N17.9 - Acute kidney failure, unspecified Status: Acute Assessment and Plan: due to ATN based on evidence to date: - renal ultrasound normal - urine eosinophils negative - urine electrolytes non pre-renal - urinalysis bland - renal scan with uptake but no excretion c/w ATN urine output remains poor BUN, creatinine, and K+ rise in between dialysis treatments continue dialysis - next treatment tomorrow (2) Acute on chronic respiratory failure with hypoxia and hypercapnia: Code(s): J96.21 - Acute and chronic respiratory failure with hypoxia; J96.22 - Acute and chronic respiratory failure with hypercapnia Status: Acute Assessment and Plan: relatively stable complicated by morbid obesity and sleep apnea renal dysfunction also contributing (3) Hypertension: Qualifiers: Hypertension type: essential hypertension Qualified Code(s): I10 - Essential (primary) hypertension Code(s): I10 - Essential (primary) hypertension Status: Chronic Assessment and Plan: well controlled at this time midodrine stopped yesterday follow trend of hemodynamics (4) Obstructive sleep apnea: Code(s): G47.33 - Obstructive sleep apnea (adult) (pediatric) Status: Chronic Assessment and Plan: using BiPAP at night tolerating treatment reasonably well (5) Insulin dependent type 2 diabetes mellitus: Code(s): E11.9 - Type 2 diabetes mellitus without complications; Z79.4 - long-term (current) use of insulin Status: Acute Assessment and Plan: follow accuchecks on sliding-scale insulin Will continue to follow. Subjective Date/time seen: 05/25/21 15:[address] George -- chart reviewed; tolerated dialysis yesterday with ~ 3L fluid removal; no apparent issues or problems voiced at this time; no issues/events overnight or earlier this AM. Exam Narrative: General: WD/WN male in NAD Heart: normal S1 and S2; no rub Lungs: decreased at the bases Abdomen: soft, nontender, nondistended, positive bowel sounds Extremities: no cyanosis or clubbing; 2+ edema Skin: improving facial rash Objective Data Vital Signs Vital Signs: Vital Signs Temp Pulse Resp BP Pulse Ox 05/25/21 14:00 95 05/25/21 13:02 36.3 C L 90 23 H 165/71 H 94 05/25/21 12:00 98 94 05/25/21 10:00 97 05/25/21 08:35 36.0 C L 92 22 H 148/72 H 94 05/25/21 08:00 91 94 05/25/21 06:00 88 05/25/21 04:00 36.5 C 91 20 144/66 H 97 05/25/21 02:00 75 05/25/21 00:00 76 98 05/24/21 23:49 37.1 C 98 20 169/74 H 98 05/24/21 23:33 80 22 H 97 05/24/21 22:00 96 05/24/21 20:00 36.9 C 98 19 166/67 H 96 05/24/21 18:45 36.7 C 96 18 160/78 H 05/24/21 18:30 97 153/74 H 05/24/21 18:00 98 163/59 H Intake/Output Intake/Output: Intake & Output 05/22/21 05/23/21 05/24/21 05/25/21 23:59 23:59 23:59 23:59 Intake Total 2140 1390 1200 680 Output Total 870 711 4937 700 Balance 1840 965 -2400 -20 Meds/Results Medications: Active Medications Generic Name Dose Route Start Last Admin Trade Name Ya PRN Reason Stop Dose Admin Acetaminophen 650 mg 05/15/21 22:45 Acetaminophen 325 Mg Tablet PO Q4H PRN Mild Pain (1-3) or Fever Hydrocodone Bitart/Acetaminophen 1 tab 05/15/21 22:45 05/25/21 04:41 Hydrocodone/Acetaminophen (*Crx) 5-325 Mg Tablet PO 1 tab Q4H PRN Administration Pain Rated 4-6 Ascorbic Acid 500 mg 05/17/21 09:00 05/25/21 17:03 Ascorbic Acid 500 Mg Tablet PO 500 mg BID PAULIE Administration Aspirin 81 mg 05/17/21 09:00 05/25/21 08:36 Aspirin 81 Mg Enteric Tablet PO 81 mg DAILY PAULIE Administration Atorvastatin Calcium 10 mg 05/16/21 21:00 05/24/21 20:
--- NOTE | 2021-05-25 16:34 | PC.NURSE ---
This patient, Wing Veloz, was received from [[facility] ] on 05/25/21 at 1635. Patient/family oriented to unit policies and routines
--- NOTE | 2021-05-25 16:40 | PC.NURSE ---
This patient, Wing Veloz, was transferred to [facility] on 05/25/21 at 1635. Personal belongings sent with patient. Report given to Penelope. Appropriate documentation sent with patient.
[2021-05-25 17:00] LABS: Glucose Point of Care 232 mg/dl (65-105)
[2021-05-25] MEDS: INSULIN ASPART (*BKC) 100 UNITS/ML SUB-Q (17:00)
[2021-05-25] MEDS: ATORVASTATIN 10 MG TABLET PO (20:29)
[2021-05-25] MEDS: MIRTAZAPINE 30 MG TABLET PO (20:29)
[2021-05-25] MEDS: MELATONIN 3 MG TABLET PO (20:36)
[2021-05-25 21:11] LABS: Glucose Point of Care 298 mg/dl (65-105)
[2021-05-26] VITALS (17 sets, daily range): BP systolic 152–182; BP diastolic 63–100; PULSE 77–101; RESP 18–21; TEMP 36.7–37.1; O2SAT 89–97
[2021-05-26 06:15] LABS: Basophils Percent Auto 0.4 % (0.2-1.2); Eosinophils Absolute Auto 0.2 K/mm3 (0-0.3); Eosinophils Percent Auto 2.5 % (0-4.4); Hematocrit 34.1 % (42.0-52.0); Hemoglobin 9.9 g/dL (14.0-18.0); Immature Granulocyte Absolute 0.09 K/mm3 (0.00-0.031); Immature Granulocyte Percent A 1.3 % (0-0.5); Lymphocytes Absolute Auto 0.97 K/mm3 (0.9-3.2); Lymphocytes Percent Auto 13.6 % (18.3-44.2); Mean Corpuscular Hemoglobin 26.3 pg (26-34); Mean Corpuscular Volume 90.5 fl (80-100); Mean Platelet Volume 9.3 fl (7.4-10.4); Monocytes Absolute Auto 0.9 K/mm3 (0.1-0.6); Neutrophils Absolute Auto 4.9 K/mm3 (1.3-6.7); Neutrophils Percent Auto 69.2 % (45.5-73.1); Platelet Count Result 201 k/mm3 (150-375); Red Blood Count 3.77 M/mm3 (4.6-6.20); White Blood Count 7.1 K/mm3 (4.5-10.0)
[2021-05-26 06:32] LABS: Albumin Level 3.3 g/dL (3.5-5.1); Anion Gap 12 mmol/L (8-16); Blood Urea Nitrogen 85 mg/dL (9-20); Calcium 8.8 mg/dL (8.4-10.2); Carbon Dioxide 23 mmol/L (22-30); Chloride 98 mmol/L (98-107); Estimated CRCL calculation 12 ml/min; Estimated Glomerular Filt Rate 6; Glucose 189 mg/dL (65-110); Magnesium 2.2 mg/dL (1.6-2.3); Phosphorus 6.9 mg/dL (2.5-4.5); Potassium 6.5 mmol/L (3.4-5.0); Sodium 133 mmol/L (137-145)
[2021-05-26 07:56] LABS: Glucose Point of Care 198 mg/dl (65-105)
--- NOTE | 2021-05-26 09:00 | PC.NURSE ---
To dialysis per bed.
[2021-05-26] MEDS: EPOETIN ALFA-EPBX 10,000 UNITS/ML VIAL 10000 UNITS IV PUSH (10:00)
--- NOTE | 2021-05-26 10:48 | PM.PNNEP ---
Progress Note: A&P Assessment and Plan (1) REJI (acute kidney injury): Code(s): N17.9 - Acute kidney failure, unspecified Status: Acute Assessment and Plan: due to ATN based on evidence to date: - renal ultrasound normal - urine eosinophils negative - urine electrolytes non pre-renal - urinalysis bland - renal scan with uptake but no excretion c/w ATN urine output remains poor BUN, creatinine, and K+ rise in between dialysis treatments continue dialysis - HD today and continue T/T/S schedule for now seems clear that he will likely need outpatient dialysis until renal recovery occurs... (2) Acute on chronic respiratory failure with hypoxia and hypercapnia: Code(s): J96.21 - Acute and chronic respiratory failure with hypoxia; J96.22 - Acute and chronic respiratory failure with hypercapnia Status: Acute Assessment and Plan: relatively stable complicated by morbid obesity and sleep apnea renal dysfunction also contributing (3) Hypertension: Qualifiers: Hypertension type: essential hypertension Qualified Code(s): I10 - Essential (primary) hypertension Code(s): I10 - Essential (primary) hypertension Status: Chronic Assessment and Plan: elevated at this time fluid removal with HD may help follow trend of hemodynamics (4) Obstructive sleep apnea: Code(s): G47.33 - Obstructive sleep apnea (adult) (pediatric) Status: Chronic Assessment and Plan: using BiPAP at night tolerating treatment reasonably well (5) Insulin dependent type 2 diabetes mellitus: Code(s): E11.9 - Type 2 diabetes mellitus without complications; Z79.4 - residential (current) use of insulin Status: Acute Assessment and Plan: follow accuchecks on sliding-scale insulin Will continue to follow. Subjective Date/time seen: 05/26/21 10:48 Tolerating dialysis at the time of my visit (seen on HD at ~ 10:30am); no apparent distress voiced at this time; breathing appears stable; noted hyperkalemia this AM; no acute issues/events overnight or earlier this AM. Exam Narrative: General: WD/WN male in NAD Heart: normal S1 and S2; no rub Lungs: decreased at the bases Abdomen: soft, nontender, nondistended, positive bowel sounds Extremities: no cyanosis or clubbing; 2+ edema Skin: warm and dry Objective Data Vital Signs Vital Signs: Vital Signs Temp Pulse Resp BP Pulse Ox 05/26/21 08:55 36.8 C 86 20 168/92 H 05/26/21 07:35 96 05/26/21 06:00 36.7 C 95 20 175/73 H 96 05/25/21 21:59 36.9 C 95 20 131/52 L 97 05/25/21 20:00 96 20 98 05/25/21 17:00 37.4 C 96 20 163/69 H 98 05/25/21 16:42 94 05/25/21 14:00 95 05/25/21 13:02 36.3 C L 90 23 H 165/71 H 94 05/25/21 12:00 98 94 Intake/Output Intake/Output: Intake & Output 05/23/21 05/24/21 05/25/21 05/26/21 23:59 23:59 23:59 23:59 Intake Total 1390 1200 680 800 Output Total 425 3600 700 1000 Balance 396 -5420 -20 -200 Meds/Results Medications: Active Medications Generic Name Dose Route Start Last Admin Trade Name Ya PRN Reason Stop Dose Admin Acetaminophen 650 mg 05/15/21 22:45 Acetaminophen 325 Mg Tablet PO Q4H PRN Mild Pain (1-3) or Fever Hydrocodone Bitart/Acetaminophen 1 tab 05/15/21 22:45 05/25/21 20:23 Hydrocodone/Acetaminophen (*Crx) 5-325 Mg Tablet PO 1 tab Q4H PRN Administration Pain Rated 4-6 Ascorbic Acid 500 mg 05/17/21 09:00 05/25/21 17:03 Ascorbic Acid 500 Mg Tablet PO 500 mg BID PAULIE Administration Aspirin 81 mg 05/17/21 09:00 05/25/21 08:36 Aspirin 81 Mg Enteric Tablet PO 81 mg DAILY PAULIE Administration Atorvastatin Calcium 10 mg 05/16/21 21:00 05/25/21 20:29 Atorvastatin 10 Mg Tablet PO 10 mg HS PAULIE Administration Bupropion HCl 150 mg 05/17/21 09:00 0
[2021-05-26 12:30] LABS: Glucose Point of Care 137 mg/dl (65-105)
--- NOTE | 2021-05-26 12:45 | PC.NURSE ---
Returned to room from dialysis per bed.
[2021-05-26] MEDS: busPIRone HCL 5 MG TABLET PO ×2 (12:51→17:07)
[2021-05-26] MEDS: ASPIRIN 81 MG ENTERIC TABLET PO (12:51)
[2021-05-26] MEDS: ASCORBIC ACID 500 MG TABLET PO ×2 (12:51→17:07)
[2021-05-26] MEDS: CYANOCOBALAMIN 1,000 MCG TABLET 1000 MCG PO (12:52)
[2021-05-26] MEDS: guaiFENesin 12 HR 600 MG TABCR PO ×2 (12:53→20:26)
[2021-05-26] MEDS: HEPARIN SODIUM 5,000 UNITS/ML VIAL 5000 UNITS SUB-Q ×2 (12:53→20:27)
[2021-05-26] MEDS: ESCITALOPRAM OXALATE 5 MG TABLET PO (12:53)
[2021-05-26] MEDS: FAMOTIDINE 20 MG TABLET PO ×2 (12:53→20:27)
[2021-05-26] MEDS: ESCITALOPRAM OXALATE 10 MG TABLET PO (12:53)
[2021-05-26] MEDS: THERAPEUTIC MULTIVITAMINS/MINERALS TAB (*BKC) 1 TABLET PO (12:54)
[2021-05-26] MEDS: buPROPion HCL XL (24 HR) 150 MG TABCR PO (12:55)
[2021-05-26] MEDS: SENNA/DOCUSATE SODIUM TABLET 1 TAB PO (12:56)
[2021-05-26] MEDS: EUCERIN CREAM 120 GM JAR 1 APPLIC TOPICAL ×2 (12:56→17:07)
[2021-05-26] MEDS: MUPIROCIN 2% OINT 22 GM TUBE 1 APPLIC TOPICAL ×2 (12:57→20:27)
[2021-05-26] MEDS: TOLNAFTATE 1% POWDER 45 GM BTL 1 APPLIC TOPICAL ×2 (12:58→20:27)
[2021-05-26] MEDS: HYDROcodone/acetaminophen (*CRX) 5-325 MG TABLET 1 TAB PO (13:03)
--- NOTE | 2021-05-26 14:10 | PM.IMPN ---
Progress Note: A&P Assessment and Plan (1) Hemoptysis: Code(s): R04.2 - Hemoptysis Status: Acute Assessment and Plan: Patient has a hx of epistaxis and hemoptysis. No chest pain, tachycardia or worsening hypoxia. He probable has post nasal bleding possibly intermittent and chronic or related to recent nasal fracture. Will check CXR. Follow for now. Add ocean spray. (2) Acute hyperkalemia: Code(s): E87.5 - Hyperkalemia Status: Acute Assessment and Plan: Potassium 6.5 today. Continue HD to control electrolyte abnormalities. Change diet to include low potassium. (3) REJI (acute kidney injury): Code(s): N17.9 - Acute kidney failure, unspecified Status: Acute Assessment and Plan: Cr 0.8 on admission. No contrast exposure. BP soft at times but Cr rise began before the HoTN. NucMed Renal Scan consistent with ATN. ATN related to the severe respiratory failure? or HoTN? Urine eos negative. Renal US normal. TCK and Complement normal. Tunnelled HD catheter placed 05/20 with HD to control electrolytes, fluid status and uremia. Nephrology consulted and appreciate their input. (4) Acute on chronic respiratory failure with hypoxia and hypercapnia: Code(s): J96.21 - Acute and chronic respiratory failure with hypoxia; J96.22 - Acute and chronic respiratory failure with hypercapnia Status: Acute Assessment and Plan: CXR on admission showing stable appearance of prominent bilateral paracardial fat pads and mild lingular atelectasis but no acute cardiopulmonary disease. ABG 7.136/94/56 on 3.5L on admission. NIV started and ABG improved to 7.32/66/126. Patient feeling much better. BiPAP held briefly due to his nasal fractures until cleared by ENT. Respiratory failure related to TAWANDA. CXR reviewed 05/20 showing diffuse bilateral lung disease felt related to fluid overload from his oliguric REJI. Echo showing EF 60-65% wit Grade I diastolic dysfunction, moderate TR and moderate pulmonary HTN. Speech therapy showing patient can swallow safely. BCx and Sputum negative. Continue nebs. Continue NIV with sleep. HD to control fluid status. Currently at baseline home O2 at 2-3L. Will change to BiPAP with settings listed in pulmonary note. ABG in the morning. (5) Altered mental status: Code(s): R41.82 - Altered mental status, unspecified Status: Acute Assessment and Plan: CT brain showing no acute intracranial abnormalities. AMS felt related to the hypercapnia. Mental status much improved. Continue current respiratory care. (6) Closed fracture nasal bone: Code(s): S02.2XXA - Fracture of nasal bones, initial encounter for closed fracture Status: Acute Assessment and Plan: Patient had a fall most likely related to his severe respiratory failure. CT scan shows bilateral nasal bone fractures and right periorbital hematoma. BiPAP was held until cleared to continue use by ENT. ENT felt patient could go back on BiPAP. If the patient develops significant facial edema and crepitus or orbital edema and crepitus or neurologic changes after starting positive-pressure ventilation, then BiPAP need to be stopped. RN was informed and what to watch for. Appreciate ENT input. No issues with NIV so far (7) Facial hematoma: Code(s): S00.83XA - Contusion of other part of head, initial encounter Status: Acute Assessment and Plan: Secondary to fall and nasal fracture. ENT evaluation as mentioned above. Supportive care. (8) Obesity hypoventilation syndrome: Code(s): E66.2 - Morbid (severe) obesity with alveolar hypoventilation Status: Acute Assessment and Plan: The notes state patient is noncompliant with NIV. BMI 51. Patient states he has never been offered NIV at the facility even though he has a long history of sleep apnea. Plan for NIV unit at the facility - per Care Coord, it will need to be BiPAP. As above.
[2021-05-26] MEDS: INSULIN ASPART (*BKC) 100 UNITS/ML SUB-Q (17:25)
[2021-05-26] MEDS: INSULIN ASPART (*BKC) 100 UNITS/ML 8 UNITS SUB-Q (17:25)
[2021-05-26 17:31] LABS: Glucose Point of Care 216 mg/dl (65-105)
[2021-05-26] MEDS: ATORVASTATIN 10 MG TABLET PO (20:26)
[2021-05-26] MEDS: MELATONIN 3 MG TABLET PO (20:26)
[2021-05-26] MEDS: MIRTAZAPINE 30 MG TABLET PO (20:26)
[2021-05-26] MEDS: INSULIN GLARGINE (*BKC) 100 UNITS/ML 28 UNITS SUB-Q (20:28)
[2021-05-26 21:37] LABS: Glucose Point of Care 254 mg/dl (65-105)
[2021-05-27] VITALS (8 sets, daily range): BP systolic 150–176; BP diastolic 69–84; PULSE 82–93; RESP 18–22; TEMP 36.5–36.7; O2SAT 94–99
[2021-05-27 04:59] LABS: Alveolar/Arterial O2 Gradient 62.5 mmHg; Base Excess ABG 2.3 mEq/l (+/-2.0); Fractional Inspired Oxygen 35 %; HCO3 ABG 29.6 mEq/l (22.0-26.0); Oxygen Content ABG 15.6 %vol (16.0-22.0); Oxygen Saturation ABG 97.9 % (95.0-100.0); Oxyhemoglobin 96.8 % THb (90.0-100.0); PCO2 ABG 59.6 mmHg (35.0-45.0); PO2 ABG 117.8 mmHg (80.0-100.0); PO2 FiO2 Ratio Arterial Blood 3.37 %; Total Hemoglobin 11.3 g/dL (12.0-18.0); pH ABG 7.314 (7.350-7.450)
[2021-05-27 05:00] LABS: Device NON-INVASIVE VENT; Modified Allen's Test Pass; Site Drawn RIGHT RADIAL
[2021-05-27 05:01] LABS: Non-Invasive Expiratory Pressure 10 CMH2O; Non-Invasive Inspiratory Pressure 22 CMH2O; Non-Invasive Vent Rate 20 /MIN
[2021-05-27 07:02] LABS: Albumin Level 3.2 g/dL (3.5-5.1); Anion Gap 11 mmol/L (8-16); Blood Urea Nitrogen 54 mg/dL (9-20); Carbon Dioxide 26 mmol/L (22-30); Chloride 100 mmol/L (98-107); Estimated CRCL calculation 15 ml/min; Estimated Glomerular Filt Rate 7; Glucose 168 mg/dL (65-110); Phosphorus 5.6 mg/dL (2.5-4.5); Potassium 5.1 mmol/L (3.4-5.0); Sodium 137 mmol/L (137-145)
[2021-05-27 08:07] LABS: Glucose Point of Care 157 mg/dl (65-105)
[2021-05-27] MEDS: ESCITALOPRAM OXALATE 10 MG TABLET PO (09:08)
[2021-05-27] MEDS: THERAPEUTIC MULTIVITAMINS/MINERALS TAB (*BKC) 1 TABLET PO (09:08)
[2021-05-27] MEDS: ASPIRIN 81 MG ENTERIC TABLET PO (09:08)
[2021-05-27] MEDS: buPROPion HCL XL (24 HR) 150 MG TABCR PO (09:08)
[2021-05-27] MEDS: guaiFENesin 12 HR 600 MG TABCR PO ×2 (09:09→20:25)
[2021-05-27] MEDS: CYANOCOBALAMIN 1,000 MCG TABLET 1000 MCG PO (09:09)
[2021-05-27] MEDS: SENNA/DOCUSATE SODIUM TABLET 1 TAB PO (09:09)
[2021-05-27] MEDS: ASCORBIC ACID 500 MG TABLET PO ×2 (09:09→16:44)
[2021-05-27] MEDS: busPIRone HCL 5 MG TABLET PO ×3 (09:09→16:44)
[2021-05-27] MEDS: FAMOTIDINE 20 MG TABLET PO ×2 (09:10→20:25)
[2021-05-27] MEDS: ESCITALOPRAM OXALATE 5 MG TABLET PO (09:11)
[2021-05-27] MEDS: EUCERIN CREAM 120 GM JAR 1 APPLIC TOPICAL ×2 (09:11→16:44)
[2021-05-27] MEDS: TOLNAFTATE 1% POWDER 45 GM BTL 1 APPLIC TOPICAL ×2 (09:12→20:25)
[2021-05-27] MEDS: MUPIROCIN 2% OINT 22 GM TUBE 1 APPLIC TOPICAL ×2 (09:12→20:25)
[2021-05-27] MEDS: INSULIN ASPART (*BKC) 100 UNITS/ML 8 UNITS SUB-Q ×3 (09:13→17:14)
[2021-05-27] MEDS: HEPARIN SODIUM 5,000 UNITS/ML VIAL 5000 UNITS SUB-Q ×2 (09:21→20:25)
[2021-05-27 11:40] LABS: Glucose Point of Care 151 mg/dl (65-105)
--- NOTE | 2021-05-27 11:57 | P.PNIM_ITS ---
Progress Note: A&P Assessment and Plan (1) Hemoptysis: Code(s): R04.2 - Hemoptysis Status: Acute Assessment and Plan: Patient has a hx of epistaxis and hemoptysis. No chest pain, tachycardia or worsening hypoxia. He probable has post nasal bleding possibly intermittent and chronic or related to recent nasal fracture. Will check CXR. Follow for now. Add ocean spray. (2) Acute hyperkalemia: Code(s): E87.5 - Hyperkalemia Status: Acute Assessment and Plan: Potassium 6.5 today. Continue HD to control electrolyte abnormalities. Change diet to include low potassium. (3) REJI (acute kidney injury): Code(s): N17.9 - Acute kidney failure, unspecified Status: Acute Assessment and Plan: Cr 0.8 on admission. No contrast exposure. BP soft at times but Cr rise began before the HoTN. NucMed Renal Scan consistent with ATN. ATN related to the severe respiratory failure? or HoTN? Urine eos negative. Renal US normal. TCK and Complement normal. Tunnelled HD catheter placed 05/20 with HD to control electrolytes, fluid status and uremia. Nephrology consulted and appreciate their input. (4) Acute on chronic respiratory failure with hypoxia and hypercapnia: Code(s): J96.21 - Acute and chronic respiratory failure with hypoxia; J96.22 - Acute and chronic respiratory failure with hypercapnia Status: Acute Assessment and Plan: CXR on admission showing stable appearance of prominent bilateral paracardial fat pads and mild lingular atelectasis but no acute cardiopulmonary disease. ABG 7.136/94/56 on 3.5L on admission. NIV started and ABG improved to 7.32/66/126. Patient feeling much better. BiPAP held briefly due to his nasal fractures until cleared by ENT. Respiratory failure related to TAWANDA. CXR reviewed 05/20 showing diffuse bilateral lung disease felt related to fluid overload from his oliguric REJI. Echo showing EF 60-65% wit Grade I diastolic dysfunction, moderate TR and moderate pulmonary HTN. Speech therapy showing patient can swallow safely. BCx and Sputum negative. Continue nebs. Continue NIV with sleep. HD to control fluid status. Currently at baseline home O2 at 2-3L. Will change to BiPAP with settings listed in pulmonary note. ABG in the morning. (5) Altered mental status: Code(s): R41.82 - Altered mental status, unspecified Status: Acute Assessment and Plan: CT brain showing no acute intracranial abnormalities. AMS felt related to the hypercapnia. Mental status much improved. Continue current respiratory care. (6) Closed fracture nasal bone: Code(s): S02.2XXA - Fracture of nasal bones, initial encounter for closed fracture Status: Acute Assessment and Plan: Patient had a fall most likely related to his severe respiratory failure. CT scan shows bilateral nasal bone fractures and right periorbital hematoma. BiPAP was held until cleared to continue use by ENT. ENT felt patient could go back on BiPAP. If the patient develops significant facial edema and crepitus or orbital edema and crepitus or neurologic changes after starting positive- pressure ventilation, then BiPAP need to be stopped. RN was informed and what to watch for. Appreciate ENT input. No issues with NIV so far (7) Facial hematoma: Code(s): S00.83XA - Contusion of other part of head, initial encounter Status: Acute Assessment and Plan: Secondary to fall and nasal fracture. ENT evaluation as mentioned above. Supportive care. (8) Obesity hypoventilation syndrome: Code(s): E66.2 - Morbid (severe) obesity with alve
--- NOTE | 2021-05-27 12:18 | PM.IMPN ---
Progress Note: A&P Assessment and Plan (1) Hemoptysis: Code(s): R04.2 - Hemoptysis Status: Acute Assessment and Plan: Patient has a hx of epistaxis and hemoptysis with recurrence yesterday. CXR okay. No recurrence. Continue [place] spray. (2) Acute hyperkalemia: Code(s): E87.5 - Hyperkalemia Status: Acute Assessment and Plan: Potassium better at 5.1 today. Continue HD to control electrolyte abnormalities. Continue low potassium diet. (3) REJI (acute kidney injury): Code(s): N17.9 - Acute kidney failure, unspecified Status: Acute Assessment and Plan: Cr 0.8 on admission. No contrast exposure. BP soft at times but Cr rise began before the HoTN. NucMed Renal Scan consistent with ATN. ATN related to the severe respiratory failure? or HoTN? Urine eos negative. Renal US normal. TCK and Complement normal. Tunnelled HD catheter placed 05/20 with HD to control electrolytes, fluid status and uremia. Nephrology consulted and appreciate their input. Plan for HD tomorrow and discharge to facility after that to start outpatient HD MWF with first outpatient treatment 05/29. Discussed with towerman (4) Acute on chronic respiratory failure with hypoxia and hypercapnia: Code(s): J96.21 - Acute and chronic respiratory failure with hypoxia; J96.22 - Acute and chronic respiratory failure with hypercapnia Status: Acute Assessment and Plan: CXR on admission showing stable appearance of prominent bilateral pericardial fat pads and mild lingular atelectasis but no acute cardiopulmonary disease. ABG 7.136/94/56 on 3.5L on admission. NIV started and ABG improved to 7.32/66/126. Patient feeling much better. BiPAP held briefly due to his nasal fractures until cleared by ENT. Respiratory failure related to TAWANDA. CXR reviewed 05/20 showing diffuse bilateral lung disease felt related to fluid overload from his oliguric REJI. Echo showing EF 60-65% with Grade I diastolic dysfunction, moderate TR and moderate pulmonary HTN. Speech therapy showing patient can swallow safely. BCx and Sputum negative. Repeat CXR 05/26 showing improvement probably related to HD. Continue nebs. Continue NIV with sleep. HD to control fluid status. Currently at baseline home O2 at 2-3L. Tolerating BiPAP last night with ABG 7.31/60/118. Pulmonary following. Will need outpatient sleep study to fine tune settings. (5) Altered mental status: Code(s): R41.82 - Altered mental status, unspecified Status: Acute Assessment and Plan: CT brain showing no acute intracranial abnormalities. AMS felt related to the hypercapnia. Mental status much improved. Continue current respiratory care. Resolved (6) Closed fracture nasal bone: Code(s): S02.2XXA - Fracture of nasal bones, initial encounter for closed fracture Status: Acute Assessment and Plan: Patient had a fall most likely related to his severe respiratory failure. CT scan shows bilateral nasal bone fractures and right periorbital hematoma. BiPAP was held until cleared to continue use by ENT. ENT felt patient could go back on BiPAP. Patient was monitored for complications of using the BiPAP with recent nasal fracture but no concerns arose. Appreciate ENT input. (7) Facial hematoma: Code(s): S00.83XA - Contusion of other part of head, initial encounter Status: Acute Assessment and Plan: Secondary to fall and nasal fracture. ENT evaluation as mentioned above. Supportive care. (8) Obesity hypoventilation syndrome: Code(s): E66.2 - Morbid (severe) obesity with alveolar hypoventilation Status: Acute Assessment and Plan: The notes state patient is noncompliant with NIV. BMI 51. Patient states he has never been offered NIV at the facility even though he has a long history of sleep apnea. Plan for NIV unit at the facility - per Care Coord, it will need to be BiPAP. As above. (9) Insul
--- NOTE | 2021-05-27 16:48 | PM.PNNEP ---
Progress Note: A&P Assessment and Plan (1) REJI (acute kidney injury): Code(s): N17.9 - Acute kidney failure, unspecified Status: Acute Assessment and Plan: due to ATN based on evidence to date: - renal ultrasound normal - urine eosinophils negative - urine electrolytes non pre-renal - urinalysis bland - renal scan with uptake but no excretion c/w ATN urine output remains poor BUN, creatinine, and K+ rise in between dialysis treatments continue dialysis - HD tomorrow and continue T/T/S schedule for now until outpatient schedule finalized seems clear that he will likely need outpatient dialysis until renal recovery occurs... (2) Acute on chronic respiratory failure with hypoxia and hypercapnia: Code(s): J96.21 - Acute and chronic respiratory failure with hypoxia; J96.22 - Acute and chronic respiratory failure with hypercapnia Status: Acute Assessment and Plan: relatively stable complicated by morbid obesity and sleep apnea renal dysfunction also contributing (3) Hypertension: Qualifiers: Hypertension type: essential hypertension Qualified Code(s): I10 - Essential (primary) hypertension Code(s): I10 - Essential (primary) hypertension Status: Chronic Assessment and Plan: elevated at this time fluid removal with HD may help follow trend of hemodynamics (4) Obstructive sleep apnea: Code(s): G47.33 - Obstructive sleep apnea (adult) (pediatric) Status: Chronic Assessment and Plan: using BiPAP at night tolerating treatment reasonably well (5) Insulin dependent type 2 diabetes mellitus: Code(s): E11.9 - Type 2 diabetes mellitus without complications; 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 Subjective Date/time seen: 05/27/21 16:48 Tolerated dialysis yesterday without any issues or problems; no complaints of shortness of breath at the time of my visit; no acute issues/events overnight or earlier this AM; still making urine at this time as well; no apparent distress noted. Exam Narrative: General: WD/WN male in NAD Heart: normal S1 and S2; no rub Lungs: decreased at the bases Abdomen: soft, nontender, nondistended, positive bowel sounds Extremities: no cyanosis or clubbing; 2+ edema Skin: warm and intact Objective Data Vital Signs Vital Signs: Vital Signs Temp Pulse Resp BP Pulse Ox 05/27/21 14:30 94 05/27/21 14:00 36.7 C 90 20 166/74 H 98 05/27/21 09:13 20 97 05/27/21 06:00 36.5 C 82 20 176/84 H 99 05/27/21 01:47 82 22 H 95 05/26/21 23:24 77 20 96 05/26/21 22:00 37.1 C 95 21 H 154/63 H 89 L 05/26/21 20:00 94 Intake/Output Intake/Output: Intake & Output 05/24/21 05/25/21 05/26/21 05/27/21 23:59 23:59 23:59 23:59 Intake Total 3635 182 5241 1400 Output Total 3600 700 3825 200 [facility] -2159 -20 -4400 1200 Meds/Results Medications: Active Medications Generic Name Dose Route Start Last Admin Trade Name Freq PRN Reason Stop Dose Admin Acetaminophen 650 mg 05/15/21 22:45 Acetaminophen 325 Mg Tablet PO Q4H PRN Mild Pain (1-3) or Fever Hydrocodone Bitart/Acetaminophen 1 tab 05/15/21 22:45 05/26/21 13:03 Hydrocodone/Acetaminophen (*Crx) 5-325 Mg Tablet PO 1 tab Q4H PRN Administration Pain Rated 4-6 Ascorbic Acid 500 mg 05/17/21 09:00 05/27/21 16:44 Ascorbic Acid 500 Mg Tablet PO 500 mg BID PAULIE Administration Aspirin 81 mg 05/17/21 09:00 05/27/21 09:08 Aspirin 81 Mg Enteric Tablet PO 81 mg DAILY PAULIE Administration Atorvastatin Calcium 10 mg 05/16/21 21:00 05/26/21 20:26 Atorvastatin 10 Mg Tablet PO 10 mg HS PAULIE Administration Bupropion HCl 150 mg 05/17/21 09:00 05/27/21 09:08
--- NOTE | 2021-05-27 16:48 | P.PNNP_ITS ---
Progress Note: A&P Assessment and Plan (1) REJI (acute kidney injury): Code(s): N17.9 - Acute kidney failure, unspecified Status: Acute Assessment and Plan: * due to ATN based on evidence to date: - renal ultrasound normal - urine eosinophils negative - urine electrolytes non pre-renal - urinalysis bland - renal scan with uptake but no excretion c/w ATN * urine output remains poor * BUN, creatinine, and K+ rise in between dialysis treatments * continue dialysis - HD tomorrow and continue T/T/S schedule for now until outpatient schedule finalized * seems clear that he will likely need outpatient dialysis until renal recovery occurs... (2) Acute on chronic respiratory failure with hypoxia and hypercapnia: Code(s): J96.21 - Acute and chronic respiratory failure with hypoxia; J96.22 - Acute and chronic respiratory failure with hypercapnia Status: Acute Assessment and Plan: * relatively stable * complicated by morbid obesity and sleep apnea * renal dysfunction also contributing (3) Hypertension: Qualifiers: Hypertension type: essential hypertension Qualified Code(s): I10 - Essential (primary) hypertension Code(s): I10 - Essential (primary) hypertension Status: Chronic Assessment and Plan: * elevated at this time * fluid removal with HD may help * follow trend of hemodynamics (4) Obstructive sleep apnea: Code(s): G47.33 - Obstructive sleep apnea (adult) (pediatric) Status: Chronic Assessment and Plan: * using BiPAP at night * tolerating treatment reasonably well (5) Insulin dependent type 2 diabetes mellitus: Code(s): E11.9 - Type 2 diabetes mellitus without complications; 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 Subjective Date/time seen: 05/27/21 16:48 Tolerated dialysis yesterday without any issues or problems; no complaints of shortness of breath at the time of my visit; no acute issues/events overnight or earlier this AM; still making urine at this time as well; no apparent distress noted. Exam Narrative: General: WD/WN male in NAD Heart: normal S1 and S2; no rub Lungs: decreased at the bases Abdomen: soft, nontender, nondistended, positive bowel sounds Extremities: no cyanosis or clubbing; 2+ edema Skin: warm and intact Objective Data Vital Signs Vital Signs: Vital Signs Temp Pulse Resp BP Pulse Ox 05/27/21 14:30 94 05/27/21 14:00 36.7 C 90 20 166/74 H 98 05/27/21 09:13 20 97 05/27/21 06:00 36.5 C 82 20 176/84 H 99 05/27/21 01:47 82 22 H 95 05/26/21 23:24 77 20 96 05/26/21 22:00 37.1 C 95 21 H 154/63 H 89 L 05/26/21 20:00 94 Intake/Output Intake/Output: Intake & Output 05/24/21 05/25/21 05/26/21 05/27/21 23:59 23:59 23:59 23:59 Intake Total 9855 716 3089 1400 Output Total 3600 700 3825 200 [facility] -2400 -20 -1615 1200 Meds/Results Medications: Active Medications Generic Name Dose Route Start Last Admin Trade Name Freq PRN Reason Stop Dose Admin Acetaminophen 65
[2021-05-27 16:52] LABS: Glucose Point of Care 148 mg/dl (65-105)
[2021-05-27] MEDS: MIRTAZAPINE 30 MG TABLET PO (20:25)
[2021-05-27] MEDS: MELATONIN 3 MG TABLET PO (20:25)
[2021-05-27] MEDS: ATORVASTATIN 10 MG TABLET PO (20:25)
[2021-05-27] MEDS: INSULIN GLARGINE (*BKC) 100 UNITS/ML 28 UNITS SUB-Q (20:26)
[2021-05-27 21:10] LABS: Glucose Point of Care 166 mg/dl (65-105)
[2021-05-28] VITALS (20 sets, daily range): BP systolic 119–177; BP diastolic 52–91; PULSE 68–100; RESP 16–20; TEMP 36–37.7; O2SAT 92–99
[2021-05-28 07:23] LABS: Basophils Percent Auto 0.4 % (0.2-1.2); Eosinophils Absolute Auto 0.4 K/mm3 (0-0.3); Eosinophils Percent Auto 4.4 % (0-4.4); Hematocrit 34.1 % (42.0-52.0); Hemoglobin 9.8 g/dL (14.0-18.0); Immature Granulocyte Absolute 0.08 K/mm3 (0.00-0.031); Immature Granulocyte Percent A 0.9 % (0-0.5); Lymphocytes Absolute Auto 1.68 K/mm3 (0.9-3.2); Lymphocytes Percent Auto 18.2 % (18.3-44.2); Mean Corpuscular HGB Conc 28.7 g/dl (32-36); Mean Corpuscular Hemoglobin 25.8 pg (26-34); Mean Corpuscular Volume 89.7 fl (80-100); Mean Platelet Volume 9.1 fl (7.4-10.4); Monocytes Absolute Auto 1.2 K/mm3 (0.1-0.6); Monocytes Percent Auto 12.6 % (2.6-8.5); Neutrophils Absolute Auto 5.9 K/mm3 (1.3-6.7); Neutrophils Percent Auto 63.5 % (45.5-73.1); Platelet Count Result 221 k/mm3 (150-375); Red Cell Distribution Width 16.2 % (11.5-14.5); White Blood Count 9.2 K/mm3 (4.5-10.0)
[2021-05-28 07:50] LABS: Albumin Level 3.2 g/dL (3.5-5.1); Anion Gap 12 mmol/L (8-16); Blood Urea Nitrogen 70 mg/dL (9-20); Calcium 8.9 mg/dL (8.4-10.2); Carbon Dioxide 26 mmol/L (22-30); Chloride 97 mmol/L (98-107); Estimated CRCL calculation 13 ml/min; Estimated Glomerular Filt Rate 7; Glucose 142 mg/dL (65-110); Magnesium 2.1 mg/dL (1.6-2.3); Phosphorus 5.6 mg/dL (2.5-4.5); Potassium 5.2 mmol/L (3.4-5.0); Sodium 135 mmol/L (137-145)
--- NOTE | 2021-05-28 08:10 | PC.NURSE ---
Report called to Eugenia HORNiuss analyst Nurse.
--- NOTE | 2021-05-28 08:20 | PC.NURSE ---
To dialysis via bed.
[2021-05-28 08:27] LABS: Glucose Point of Care 180 mg/dl (65-105)
[2021-05-28 09:25] LABS: Hypochromasia 2+ (NORMAL); Platelet Estimate Adequate (Adequate)
[2021-05-28] MEDS: EPOETIN ALFA-EPBX 10,000 UNITS/ML VIAL 10000 UNITS IV PUSH (10:14)
--- NOTE | 2021-05-28 11:35 | PCPTNOTE ---
Attempted to see patient for PT, however unable to due to patient out of room at this time.
--- NOTE | 2021-05-28 11:45 | PM.PNNEP ---
Progress Note: A&P Assessment and Plan (1) REJI (acute kidney injury): Code(s): N17.9 - Acute kidney failure, unspecified Status: Acute Assessment and Plan: due to ATN based on evidence to date: - renal ultrasound normal - urine eosinophils negative - urine electrolytes non pre-renal - urinalysis bland - renal scan with uptake but no excretion c/w ATN urine output remains poor BUN, creatinine, and K+ rise in between dialysis treatments continue dialysis - HD today; noted outpatient HD schedule of M/W/F will need outpatient dialysis until renal recovery occurs... (2) Acute on chronic respiratory failure with hypoxia and hypercapnia: Code(s): J96.21 - Acute and chronic respiratory failure with hypoxia; J96.22 - Acute and chronic respiratory failure with hypercapnia Status: Acute Assessment and Plan: relatively stable complicated by morbid obesity and sleep apnea renal dysfunction also contributing (3) Hypertension: Qualifiers: Hypertension type: essential hypertension Qualified Code(s): I10 - Essential (primary) hypertension Code(s): I10 - Essential (primary) hypertension Status: Chronic Assessment and Plan: elevated at this time fluid removal with HD may help follow trend of hemodynamics (4) Obstructive sleep apnea: Code(s): G47.33 - Obstructive sleep apnea (adult) (pediatric) Status: Chronic Assessment and Plan: using BiPAP at night tolerating treatment reasonably well (5) Insulin dependent type 2 diabetes mellitus: Code(s): E11.9 - Type 2 diabetes mellitus without complications; Z79.4 - 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 Subjective Date/time seen: 05/28/21 11:45 Patient tolerating dialysis treatment at the time of my visit (seen on HD at ~ 11:30AM); no new issues or problems to report; no events/issues overnight or earlier this AM; feels reasonably well. Exam Narrative: General: WD/WN male in NAD Heart: normal S1 and S2; no rub Lungs: decreased at the bases Abdomen: soft, nontender, nondistended, positive bowel sounds Extremities: no cyanosis or clubbing; 2+ edema Skin: warm and intact Objective Data Vital Signs Vital Signs: Vital Signs Temp Pulse Resp BP Pulse Ox 05/28/21 11:43 36.6 C 92 16 141/76 H 08/12/21 11:36 92 119/52 L 05/28/21 11:15 93 125/64 05/28/21 11:00 90 143/77 H 05/28/21 10:45 89 143/70 H 05/28/21 10:30 68 144/61 H 05/28/21 10:15 88 143/74 H 05/28/21 10:00 90 145/84 H 05/28/21 09:45 91 144/76 H 05/28/21 09:30 92 151/83 H 05/28/21 09:15 94 139/69 05/28/21 09:00 100 149/70 H 05/28/21 08:45 90 176/90 H 05/28/21 08:33 88 177/91 H 05/28/21 08:20 36.8 C 88 16 174/89 H 05/28/21 08:05 16 97 05/28/21 06:00 36.1 C L 83 18 159/85 H 97 05/28/21 03:11 77 20 93 05/27/21 22:50 93 20 96 05/27/21 22:00 36.5 C 90 18 150/69 H 96 05/27/21 20:00 94 05/27/21 14:30 94 05/27/21 14:00 36.7 C 90 20 166/74 H 98 Intake/Output Intake/Output: Intake & Output 05/25/21 05/26/21 05/27/21 05/28/21 23:59 23:59 23:59 23:59 Intake Total 680 2210 2880 550 Output Total 700 3825 1125 2828 [facility]68 -9127 5204 -0887 Meds/Results Medications: Active Medications Generic Name Dose Route Start Last Admin Trade Name Freq PRN Reason Stop Dose Admin Acetaminophen 650 mg 05/15/21 22:45 Acetaminophen 325 Mg Tablet PO Q4H PRN Mild Pain (1-3) or Fever Hydrocodone Bitart/Acetaminophen 1 tab 05/15/21 22:45 05/26/21 13:03 Hydrocodone/Acetaminophen (*Crx) 5-325 Mg Tablet PO 1 tab Q4H PRN Administration Pain Rated 4-6 Ascorbic Acid 500 mg
--- NOTE | 2021-05-28 11:45 | PCNWS ---
Weekly nutritional screen. Patient is tolerating current diet with adequate intake. No weight loss reported. No nutritional needs at this time.
--- NOTE | 2021-05-28 11:49 | PCOTNOTE ---
Attempted to see patient this am, however patient in dialysis at this time.
--- NOTE | 2021-05-28 11:50 | PC.NURSE ---
Returned from Dialysis via bed.
[2021-05-28] MEDS: FAMOTIDINE 20 MG TABLET PO ×2 (12:11→21:16)
[2021-05-28] MEDS: CYANOCOBALAMIN 1,000 MCG TABLET 1000 MCG PO (12:12)
[2021-05-28] MEDS: SENNA/DOCUSATE SODIUM TABLET 1 TAB PO (12:12)
[2021-05-28] MEDS: buPROPion HCL XL (24 HR) 150 MG TABCR PO (12:12)
[2021-05-28] MEDS: ESCITALOPRAM OXALATE 10 MG TABLET PO (12:12)
[2021-05-28] MEDS: THERAPEUTIC MULTIVITAMINS/MINERALS TAB (*BKC) 1 TABLET PO (12:12)
[2021-05-28] MEDS: ASCORBIC ACID 500 MG TABLET PO ×2 (12:13→16:51)
[2021-05-28] MEDS: ESCITALOPRAM OXALATE 5 MG TABLET PO (12:13)
[2021-05-28] MEDS: ASPIRIN 81 MG ENTERIC TABLET PO (12:13)
[2021-05-28] MEDS: EUCERIN CREAM 120 GM JAR 1 APPLIC TOPICAL ×2 (12:14→16:52)
[2021-05-28] MEDS: MUPIROCIN 2% OINT 22 GM TUBE 1 APPLIC TOPICAL ×2 (12:15→21:17)
[2021-05-28] MEDS: guaiFENesin 12 HR 600 MG TABCR PO ×2 (12:15→21:16)
[2021-05-28] MEDS: TOLNAFTATE 1% POWDER 45 GM BTL 1 APPLIC TOPICAL ×2 (12:15→21:17)
[2021-05-28 12:17] LABS: Glucose Point of Care 139 mg/dl (65-105)
[2021-05-28] MEDS: busPIRone HCL 5 MG TABLET PO ×2 (12:18→16:51)
--- NOTE | 2021-05-28 12:22 | PM.DS ---
DS: Admitting Diagnosis Admitting Diagnosis Falls DS: Discharge Diagnosis Discharge Diagnosis (1) Hemoptysis: Code(s): R04.2 - Hemoptysis Status: Acute Assessment and Plan: Patient has a hx of epistaxis and hemoptysis. No chest pain, tachycardia or worsening hypoxia. CXR was clear. Sharon all related to epistaxis from the oxygen via nasal cannula. [place] spray added. Humidify O2. (2) Acute hyperkalemia: Code(s): E87.5 - Hyperkalemia Status: Acute Assessment and Plan: Potassium elevated at times related to the REJI. Changed diet to low potassium and used HD to control electrolyte abnormalities. (3) REJI (acute kidney injury): Code(s): N17.9 - Acute kidney failure, unspecified Status: Acute Assessment and Plan: Cr 0.8 on admission. No contrast exposure. BP was soft at times but Cr began to climb before the HoTN. Urine eos negative. Renal US normal. TCK and Complement normal. NucMed Renal Scan consistent with ATN. ATN related to the severe respiratory failure? or HoTN? Tunnelled HD catheter placed 05/20 with HD to control electrolytes, fluid status and uremia. Nephrology followed along. Outpatient dialysis arranged for -. (4) Acute on chronic respiratory failure with hypoxia and hypercapnia: Code(s): J96.21 - Acute and chronic respiratory failure with hypoxia; J96.22 - Acute and chronic respiratory failure with hypercapnia Status: Acute Assessment and Plan: CXR on admission showing stable appearance of prominent bilateral pericardial fat pads and mild lingular atelectasis but no acute cardiopulmonary disease. ABG 7.136/94/56 on 3.5L on admission. NIV started and ABG improved to 7.32/66/126. BiPAP held briefly due to his nasal fractures until cleared by ENT. Respiratory failure related to TAWANDA. CXR reviewed 05/20 showing diffuse bilateral lung disease felt related to fluid overload from his oliguric REJI. Echo showing EF 60-65% with Grade I diastolic dysfunction, moderate TR and moderate pulmonary HTN. Speech therapy showing patient can swallow safely. Pulmonary consulted and followed along. BCx and Sputum negative. Repeat CXR 05/26 showing improvement probably related to fluid removal with dialysis. Patient able to be weaned down to his O2 at 2-3 L/min baseline O2 requirement. Patient will need outpatient sleep study to fine tune settings. (5) Altered mental status: Code(s): R41.82 - Altered mental status, unspecified Status: Acute Assessment and Plan: CT brain on admission showing no acute intracranial abnormalities. AMS felt related to the hypercapnia. Mental status much improved with the above mentioned treatment. Sharon that he is back to his baseline (6) Closed fracture nasal bone: Code(s): S02.2XXA - Fracture of nasal bones, initial encounter for closed fracture Status: Acute Assessment and Plan: Patient had a fall most likely related to confusion from his severe respiratory failure. CT scan shows bilateral nasal bone fractures and right periorbital hematoma. BiPAP was held until cleared to continue use by ENT. ENT felt patient could go back on BiPAP. Patient was monitored for complications of using the BiPAP with recent nasal fracture but no concerns arose. We appreciated ENT input. (7) Facial hematoma: Code(s): S00.83XA - Contusion of other part of head, initial encounter Status: Acute Assessment and Plan: Secondary to fall and nasal fracture. ENT evaluation as mentioned above. Facial bruising has resolved (8) Obesity hypoventilation syndrome: Code(s): E66.2 - Morbid (severe) obesity with alveolar hypoventilation Status: Acute Assessment and Plan: The notes state patient is noncompliant with NIV. BMI 51. Patient states he has never been offered NIV at the facility even though he has a long history of sleep apnea. Plan for NIV unit at the facility - per Care [facility]
[2021-05-28] MEDS: INSULIN ASPART (*BKC) 100 UNITS/ML 8 UNITS SUB-Q ×2 (12:30→16:55)
[2021-05-28 16:45] LABS: Glucose Point of Care 134 mg/dl (65-105)
[2021-05-28] MEDS: MIRTAZAPINE 30 MG TABLET PO (21:16)
[2021-05-28] MEDS: ATORVASTATIN 10 MG TABLET PO (21:16)
[2021-05-28] MEDS: HEPARIN SODIUM 5,000 UNITS/ML VIAL 5000 UNITS SUB-Q (21:16)
[2021-05-28 23:01] LABS: Glucose Point of Care 135 mg/dl (65-105)
== END 2021-05-28 23:30 | DRG 189 ==
LOC: ANHED 18:04 → ANHIMU 23:29 → ANH3MEDSUR 05-28 13:06 → ANHIMU 06-01 12:25
PROVIDERS: Hospitalist; Internal Medicine; Internal Medicine Nephrology; Internal Medicine Pulmonary Disease; Surgery; Admitting Provider Internal Medicine; Emergency Provider Emergency Medicine; Visit Provider Internal Medicine
PROC: 0JH63XZ Insertion of Tunneled Vascular Access Device into Chest Subcutaneous Tissue and Fascia, Percutaneous Approach (ICD-10-PCS; CPT 36908; principal; 2021-05-20 15:00)
DX: J96.21 Acute and chronic respiratory failure with hypoxia (principal); N17.0 Acute kidney failure with tubular necrosis; E66.2 Morbid (severe) obesity with alveolar hypoventilation; Z68.42 Body mass index [BMI] 45.0-49.9, adult; R04.2 Hemoptysis; J96.22 Acute and chronic respiratory failure with hypercapnia; R04.0 Epistaxis; G47.33 Obstructive sleep apnea (adult) (pediatric); I95.3 Hypotension of hemodialysis; E11.9 Type 2 diabetes mellitus without complications; S00.83XA Contusion of other part of head, initial encounter; S02.2XXA Fracture of nasal bones, initial encounter for closed fracture; W19.XXXA Unspecified fall, initial encounter; I25.10 Atherosclerotic heart disease of native coronary artery without angina pectoris; E87.5 Hyperkalemia; I10 Essential (primary) hypertension; D64.9 Anemia, unspecified; I73.9 Peripheral vascular disease, unspecified; E53.8 Deficiency of other specified B group vitamins; I87.2 Venous insufficiency (chronic) (peripheral); E78.5 Hyperlipidemia, unspecified; F41.8 Other specified anxiety disorders; Z89.512 Acquired absence of left leg below knee; Z86.718 Personal history of other venous thrombosis and embolism; Z91.19 Patient's noncompliance with other medical treatment and regimen; Z79.4 Long term (current) use of insulin
CPT/HCPCS: 36415; 36600; 70450; 70460; 70486; 71045; 76775; 77001; 78707; 80048; 80053; 80069; 80202; 82375; 82533; 82550; 82570; 82805; 82948; 83050; 83605; 83615; 83735; 83883; 84300; 84443; 84484; 85025; 85027; 85999; 86038; 86140; 86160; 86162; 86704; 86706; 86803; 86850; 86900; 86901; 87040; 87070; 87205; 87340; 92610; 93005; 93306; 94002; 94003; 94640; 94660; 94762; 96365; 96366; 96367; 97110; 97161; 97166; 97530; 97535; 99291; A9270; A9562; C1750; G0257; G0378; J1644; J1815; J2060; J2543; J2704; J3010; J3370; J7030; J7040; Q5106; Q9967

== ENCOUNTER 2021-06-16 14:00 | Emergency (ER) | payer MEDICARE, MEDICAID, SELFPAY ==
[2021-06-16] VITALS (7 sets, daily range): BP systolic 137–172; BP diastolic 61–80; PULSE 92–107; RESP 16–23; TEMP 37; O2SAT 92–100
[2021-06-16 14:06] LABS: Glucose Point of Care 338 mg/dl (65-105)
[2021-06-16 15:21] LABS: Basophils Percent Auto 0.5 % (0.2-1.2); Eosinophils Absolute Auto 0.3 K/mm3 (0-0.3); Eosinophils Percent Auto 3.5 % (0-4.4); Hematocrit 34.9 % (42.0-52.0); Hemoglobin 10.8 g/dL (14.0-18.0); Immature Granulocyte Absolute 0.09 K/mm3 (0.00-0.031); Immature Granulocyte Percent A 1.2 % (0-0.5); Lymphocytes Absolute Auto 2.36 K/mm3 (0.9-3.2); Lymphocytes Percent Auto 30.3 % (18.3-44.2); Mean Corpuscular HGB Conc 30.9 g/dl (32-36); Mean Corpuscular Hemoglobin 27.3 pg (26-34); Mean Corpuscular Volume 88.1 fl (80-100); Mean Platelet Volume 8.8 fl (7.4-10.4); Monocytes Absolute Auto 1.1 K/mm3 (0.1-0.6); Monocytes Percent Auto 13.5 % (2.6-8.5); Platelet Count Result 153 k/mm3 (150-375); Red Blood Count 3.96 M/mm3 (4.6-6.20); Red Cell Distribution Width 16.6 % (11.5-14.5); White Blood Count 7.8 K/mm3 (4.5-10.0)
[2021-06-16 15:42] LABS: Add Urine Microscopic? YES; Appearance Urine Clear (Clear); Bilirubin Urine Negative (Negative); Color Urine Yellow (Yellow); Glucose Urine UA 3+ mg/dL (Negative); Ketones Urine Negative (Negative); Leukocyte Esterase Ur Trace LEU/UL (Negative); Nitrate Urine Negative (Negative); Protein Urine 1+ mg/dL (Negative); Squamous Epithelial Cell Urine Rare /hpf (Few); Urobilinogen Urine Negative mg/dL (<2.0)
[2021-06-16 15:43] LABS: Blood Urine Negative (Negative)
[2021-06-16 15:50] LABS: Alanine Aminotransferase 19 U/L (4-50); Albumin Level 3.8 g/dL (3.5-5.1); Alkaline Phosphatase 125 U/L (38-126); Aspartate Amino Transferase 31 U/L (17-59); Beta-Hydroxybutyrate/Acetoacetate 0.09 mmol/L (0.02-0.27); Bilirubin,Total 0.4 mg/dL (0.2-1.3); Blood Urea Nitrogen 23 mg/dL (9-20); Carbon Dioxide 35 mmol/L (22-30); Chloride 93 mmol/L (98-107); Estimated CRCL calculation 52 ml/min; Estimated Glomerular Filt Rate 34; Glucose 288 mg/dL (65-110); Magnesium 1.5 mg/dL (1.6-2.3); Phosphorus 2.5 mg/dL (2.5-4.5); Potassium 3.3 mmol/L (3.4-5.0)
[2021-06-16 16:02] LABS: Anion Gap 7 mmol/L (8-16); Sodium 135 mmol/L (137-145)
--- NOTE | 2021-06-16 16:58 | ED.GENADULT ---
HPI - General Adult General Chief complaint: Recheck/Abnormal Lab/Rx Stated complaint: ELEVATED BLOOD GLUCOSE Time Seen by Provider: 06/16/21 16:09 Source: patient Mode of arrival: EMS Limitations: no limitations History of Present Illness HPI narrative: Patient is a 65-year-old male complaining of elevated blood sugar, 572 , started today. Patient denies any other symptoms. Patient denies any dizziness, chest pain, shortness of breath, abdominal pain, nausea, vomiting, diarrhea, fever or chills. Related Data Home Medications Medication Instructions Recorded Confirmed Therapeutic-M Vitamin/Minerals 1 tablet PO DAILY 11/14/19 05/16/21 acetaminophen [Acetaminophen Extra 500 mg PO Q6H PRN 11/14/19 05/16/21 Strength] ascorbic acid (vitamin C) 500 mg PO BID 11/14/19 05/16/21 ergocalciferol (vitamin D2) 50,000 unit PO WEEKLY 11/14/19 05/16/21 [Vitamin D2] escitalopram oxalate 5 mg PO DAILY 11/14/19 05/16/21 escitalopram oxalate 10 mg PO DAILY 11/14/19 05/16/21 gabapentin 600 mg PO TID 11/14/19 05/16/21 mirtazapine 30 mg PO HS 11/14/19 05/16/21 aspirin [Aspirin Low Dose] 81 mg PO DAILY 12/08/19 05/16/21 atorvastatin 10 mg PO HS 12/08/19 05/16/21 sennosides-docusate sodium 1 tab-cap PO DAILY 04/14/20 05/16/21 [Senexon-S] sodium chloride [Saline Nasal Mist] 1 spray INTRANASAL Q4H PRN 04/15/20 05/16/21 Victoza 2-Tushar 1.8 mg SUBCUT DAILY 03/03/21 05/16/21 buspirone 5 mg PO TID 03/03/21 05/16/21 mupirocin 1 applic TOPICAL BID 03/03/21 05/16/21 trazodone 150 mg PO HS PRN 03/03/21 05/16/21 bupropion HCl [Wellbutrin XL] 150 mg PO DAILY 05/16/21 05/16/21 insulin glargine [Lantus Solostar SUBCUT 06/16/21 U-100 Insulin] Allergies Allergy/AdvReac Type Severity Reaction Status Date / Time Penicillins AdvReac Unknown Fever Verified 06/16/21 15:21 Review of Systems Review of Systems: All systems reviewed & are unremarkable except as noted in HPI and below Constitutional: Constitutional: Denies body ache(s), Denies chills, Denies excessive sweating, Denies fatigue, Denies fever(s), Denies headache(s), Denies lethargy, Denies malaise, Denies weakness and Denies weight loss Eyes: Eyes: Denies blurry vision, Denies change in vision and Denies loss of vision ENT: Denies dizziness, Denies ear discharge, Denies headache(s), Denies lip swelling, Denies epistaxis, Denies nasal congestion, Denies neck pain, Denies throat swelling and Denies tongue swelling Cardiovascular: Cardiovascular: Denies chest pain, Denies chest pain at rest, Denies chest pain with activity, Denies diaphoresis, Denies rapid heart rate, Denies edema, Denies irregular heart rhythm, Denies lightheadedness, Denies palpitations, Denies dyspnea and Denies dyspnea on exertion Respiratory: Respiratory: Denies chest congestion, Denies cough, Denies hemoptysis, Denies dyspnea and Denies dyspnea on exertion Gastrointestinal: Gastrointestinal: Denies abdominal pain, Denies melena, Denies hematochezia, Denies diarrhea, Denies nausea, Denies vomiting and Denies hematemesis Musculoskeletal: Musculoskeletal: Denies abnormal gait, Denies deformity, Denies joint swelling, Denies limited range of motion, Denies neck pain and Denies numbness Neurologic: Denies Abnormal speech present, Denies abnormal gait, Denies confusion, Denies dizziness, Denies headache(s), Denies focal weakness, Denies loss of vision, Denies numbness, Denies Other visual disturbances, Denies Sensory deficit (Neuro) and Denies weakness Psychiatric: Psychiatric: Denies confusion, Denies depression, Denies auditory hallucinations, Denies homicidal ideation and Denies suicidal ideation Endocrine: Endocrine: Denies cold intolerance, Denies excessive sweating, Denies fatigue, Denies heat intolerance and Denies palpitations Hematologic/Lymphatic: Hematologic/Lymphatic: Denies easy bleeding and Denies easy bruising Allergic/Immunologic: Allergic/Immunologic: Denies lip swelling, Denies throat swelling and Denies tongue swelli
[2021-06-16] MEDS: LACTATED RINGERS 1,000 ML 999 ML IV CONT (17:25)
[2021-06-16 17:37] LABS: Alveolar/Arterial O2 Gradient 87.9 mmHg; Base Excess ABG 9.9 mEq/l (+/-2.0); Carboxyhemoglobin 0.7 % THb (0-2.0); Device NASAL CANNULA; Fractional Inspired Oxygen 32 %; HCO3 ABG 34.3 mEq/l (22.0-26.0); Methemoglobin ABG 0.2 %THb (0-1.5); Modified Allen's Test Pass; Oxygen Content ABG 14.4 %vol (16.0-22.0); Oxygen Saturation ABG 97.1 % (95.0-100.0); Oxyhemoglobin 95.3 % THb (90.0-100.0); PCO2 ABG 45.8 mmHg (35.0-45.0); PO2 ABG 86.7 mmHg (80.0-100.0); PO2 FiO2 Ratio Arterial Blood 2.71 %; Reduced Hemoglobin 3.8 %THb (0-5.0); Site Drawn LEFT RADIAL; Total Hemoglobin 10.7 g/dL (12.0-18.0); pH ABG 7.492 (7.350-7.450)
[2021-06-16 19:28] LABS: Glucose Point of Care 334 mg/dl (65-105)
[2021-06-16] MEDS: POTASSIUM CHLORIDE 10 MEQ TABLET 20 MEQ PO (20:04)
--- NOTE | 2021-06-16 20:28 | PC.NURSE ---
called [facility] to request transport. ETA [id number] [facility] does not have a transfer truck tonight. Called [facility] to request transport. declined - doesn't have a truck for that tonight.
--- NOTE | 2021-06-16 21:44 | PC.NURSE ---
Report called to [facility] and [facility] at [phone]. Spoke with JUSTINA Lechuga.
--- NOTE | 2021-06-17 00:07 | PC.NURSE ---
[facility] here.
== END 2021-06-17 00:10 ==
PROVIDERS: Emergency Medicine; Emergency Provider Emergency Medicine
DX: E11.65 Type 2 diabetes mellitus with hyperglycemia (principal); N18.9 Chronic kidney disease, unspecified; E11.22 Type 2 diabetes mellitus with diabetic chronic kidney disease; I12.9 Hypertensive chronic kidney disease with stage 1 through stage 4 chronic kidney disease, or unspecified chronic kidney disease; F32.9 Major depressive disorder, single episode, unspecified; F41.9 Anxiety disorder, unspecified; G47.33 Obstructive sleep apnea (adult) (pediatric); E11.51 Type 2 diabetes mellitus with diabetic peripheral angiopathy without gangrene; Z79.899 Other long term (current) drug therapy; Z79.4 Long term (current) use of insulin; Z86.2 Personal history of diseases of the blood and blood-forming organs and certain disorders involving the immune mechanism; Z86.718 Personal history of other venous thrombosis and embolism; Z87.891 Personal history of nicotine dependence
CPT/HCPCS: 36415; 36600; 51701; 80053; 81001; 82010; 82375; 82805; 82948; 83050; 83735; 84100; 85025; 87086; 87088; 96360; 96361; 99283; A9270; J7120

== ENCOUNTER 2021-07-08 20:34 | Emergency (ER) | payer MEDICARE, MEDICAID, SELFPAY ==
--- NOTE | ~2021-07-08 | XR_ITS ---
EXAMINATION: XR chest 1V portable DATE: 07/09/2021 00:18 INDICATION: Hyperglycemia. TECHNIQUE: A single frontal view of the chest was obtained. COMPARISON: Chest single view 05/26/2021, CT abdomen and pelvis 03/03/2021 FINDINGS: Sensitivity is decreased by obesity. There are prominent paracardial fat pads. There is pro minent extrapleural fat bilaterally. No pneumonia, pleural effusion, or pneumothorax. The heart size is normal. There are changes of anterior fusion procedure in cervical spine. A right subclavian centr al venous catheter is seen with tip in the superior vena cava. There is persistent displacement of th e dialysis catheter between the clavicle and first rib, which is a sign of increased risk of catheter fracture. IMPRESSION: 1. No acute cardiopulmonary disease. Sensitivity is decreased by obesity. Reviewed, dictated and finalized at location A.
[2021-07-08 20:48] VITALS: BP 129/76; PULSE 100; RESP 21; TEMP 36.6; O2SAT 96
[2021-07-08 20:49] LABS: Glucose Point of Care 479 mg/dl (65-105)
[2021-07-08 21:05] LABS: Basophils Percent Auto 0.3 % (0.2-1.2); Eosinophils Absolute Auto 0.3 K/mm3 (0-0.3); Eosinophils Percent Auto 2.7 % (0-4.4); Hematocrit 36.1 % (42.0-52.0); Hemoglobin 11.8 g/dL (14.0-18.0); Immature Granulocyte Absolute 0.07 K/mm3 (0.00-0.031); Immature Granulocyte Percent A 0.8 % (0-0.5); Lymphocytes Absolute Auto 2.55 K/mm3 (0.9-3.2); Lymphocytes Percent Auto 27.8 % (18.3-44.2); Mean Corpuscular HGB Conc 32.7 g/dl (32-36); Mean Corpuscular Hemoglobin 29.4 pg (26-34); Mean Corpuscular Volume 89.8 fl (80-100); Mean Platelet Volume 8.5 fl (7.4-10.4); Monocytes Percent Auto 10.7 % (2.6-8.5); Neutrophils Absolute Auto 5.3 K/mm3 (1.3-6.7); Neutrophils Percent Auto 57.7 % (45.5-73.1); Platelet Count Result 203 k/mm3 (150-375); Red Blood Count 4.02 M/mm3 (4.6-6.20); Red Cell Distribution Width 17.9 % (11.5-14.5); White Blood Count 9.2 K/mm3 (4.5-10.0)
[2021-07-08 21:27] LABS: Alanine Aminotransferase 20 U/L (4-50); Alkaline Phosphatase 123 U/L (38-126); Anion Gap 12 mmol/L (8-16); Aspartate Amino Transferase 27 U/L (17-59); Bilirubin,Total 0.6 mg/dL (0.2-1.3); Blood Urea Nitrogen 34 mg/dL (9-20); Calcium 9.3 mg/dL (8.4-10.2); Carbon Dioxide 32 mmol/L (22-30); Chloride 86 mmol/L (98-107); Estimated CRCL calculation 68 ml/min; Estimated Glomerular Filt Rate 47; Glucose 541 mg/dL (65-110); Potassium 3.3 mmol/L (3.4-5.0); Sodium 130 mmol/L (137-145)
--- NOTE | 2021-07-08 21:33 | ED.GENADULT ---
HPI - General Adult General Chief complaint: Recheck/Abnormal Lab/Rx Stated complaint: hyperglycemia Time Seen by Provider: 07/08/21 21:11 Source: patient, EMS and RN notes reviewed Mode of arrival: EMS History of Present Illness HPI narrative: Patient came from care home because of elevated blood glucose all day long. At the care home blood glucose was above 600, and arrival to the ED was 479, patient received insulin prior to arrival. Patient is asymptomatic, have been fully vaccinated for COVID-19 Related Data Home Medications Medication Instructions Recorded Confirmed Therapeutic-M Vitamin/Minerals 1 tablet PO DAILY 11/14/19 05/16/21 acetaminophen [Acetaminophen Extra 500 mg PO Q6H PRN 11/14/19 05/16/21 Strength] ascorbic acid (vitamin C) 500 mg PO BID 11/14/19 05/16/21 ergocalciferol (vitamin D2) 50,000 unit PO WEEKLY 11/14/19 05/16/21 [Vitamin D2] escitalopram oxalate 5 mg PO DAILY 11/14/19 05/16/21 escitalopram oxalate 10 mg PO DAILY 11/14/19 05/16/21 gabapentin 600 mg PO TID 11/14/19 05/16/21 mirtazapine 30 mg PO HS 11/14/19 05/16/21 aspirin [Aspirin Low Dose] 81 mg PO DAILY 12/08/19 05/16/21 atorvastatin 10 mg PO HS 12/08/19 05/16/21 sennosides-docusate sodium 1 tab-cap PO DAILY 04/14/20 05/16/21 [Senexon-S] sodium chloride [Saline Nasal Mist] 1 spray INTRANASAL Q4H PRN 04/15/20 05/16/21 Victoza 2-Tushar 1.8 mg SUBCUT DAILY 03/03/21 05/16/21 buspirone 5 mg PO TID 03/03/21 05/16/21 mupirocin 1 applic TOPICAL BID 03/03/21 05/16/21 trazodone 150 mg PO HS PRN 03/03/21 05/16/21 bupropion HCl [Wellbutrin XL] 150 mg PO DAILY 05/16/21 05/16/21 insulin glargine [Lantus Solostar SUBCUT 06/16/21 U-100 Insulin] Allergies Allergy/AdvReac Type Severity Reaction Status Date / Time Penicillins AdvReac Unknown Fever Verified 07/08/21 20:53 Review of Systems Review of Systems: CONSTITUTIONAL: Denies fever, chills, or sweats. EYES: Denies visual changes, redness, or discharge. ENT: Denies rhinorrhea, congestion, sore throat, or otalgia. CARDIOVASCULAR: Denies chest pain, palpitations, or edema. RESPIRATORY: Denies cough or dyspnea. GASTROINTESTINAL: Denies abdominal pain, nausea, vomiting, or diarrhea. GENITOURINARY: Denies dysuria or hematuria. SKIN: Denies rash or itching. MUSCULOSKELETAL: Denies back pain, joint pain, or myalgia. NEUROLOGIC: Denies headache, numbness, or weakness. PSYCHIATRIC: Denies anxiety or depression. [facility] Past Medical History Medical History Chronic anemia Chronic stasis dermatitis Coronary artery disease Depression with anxiety History of deep venous thrombosis Hypertension Insulin dependent type 2 diabetes mellitus Hemoglobin A1c 9.2 Obstructive sleep apnea Noncompliant with CPAP. Peripheral vascular disease Ventral hernia Chronic large left lower quadrant ventral hernia Surgical History Surgical History History of tonsillectomy Status post below-knee amputation of left lower extremity Status post herniorrhaphy Ventral hernia repair x3. Family History Family History Father , at age 69 Diabetes mellitus Family history of alcoholism Mother Diabetes mellitus Sibling Family history of emphysema Other Family history of cardiovascular disease Social History Social History Social History: The patient has been at [facility] for several years. Before that he was living with his mother in [place]. He is on disability. He had 2 daughters, one at the age of 34 from an MA. He is a lifelong non-smoker. A former heavy drinker though he has abstained since [facility]. He denies illicit drug use. Patient wishes to be a full code. His [id number] is his mother, Nicolle Veloz. [facility] [place]
[2021-07-08 21:35] VITALS: BP 156/66; PULSE 102; RESP 23; O2SAT 96
[2021-07-08 21:42] LABS: Add Urine Microscopic? YES; Appearance Urine Clear (Clear); Bilirubin Urine Negative (Negative); Blood Urine Negative (Negative); Color Urine Straw (Yellow); Glucose Urine UA 3+ mg/dL (Negative); Ketones Urine Negative (Negative); Leukocyte Esterase Ur Negative LEU/UL (Negative); Nitrate Urine Negative (Negative); Protein Urine Negative (Negative); RBC Urine 0-2 /hpf (0-2); Specific Grav Ur 1.009 (1.001-1.035); Squamous Epithelial Cell Urine Rare /hpf (Few); Urobilinogen Urine Negative mg/dL (<2.0); WBC Urine 0-3 /hpf
[2021-07-08 21:57] LABS: Beta-Hydroxybutyrate/Acetoacetate 0.14 mmol/L (0.02-0.27)
[2021-07-08 21:58] LABS: Alveolar/Arterial O2 Gradient 34.2 mmHg; Base Excess ABG 6.1 mEq/l (+/-2.0); Device ROOM AIR; Fractional Inspired Oxygen 21 %; HCO3 ABG 30.6 mEq/l (22.0-26.0); Modified Allen's Test Pass; Oxygen Content ABG 15.3 %vol (16.0-22.0); Oxygen Saturation ABG 93.1 % (95.0-100.0); Oxyhemoglobin 90.7 % THb (90.0-100.0); PCO2 ABG 43.9 mmHg (35.0-45.0); Site Drawn RIGHT RADIAL; pH ABG 7.461 (7.350-7.450)
[2021-07-08] MEDS: INSULIN HUMAN REGULAR (*BKC) 100 UNITS/ML 15 UNITS IV PUSH (21:59)
[2021-07-08] MEDS: SODIUM CHLORIDE 0.9% IV 1,000 ML 500 ML IV CONT (22:01)
[2021-07-08 22:07] VITALS: BP 159/70; PULSE 107; RESP 23; O2SAT 95
[2021-07-08 22:08] LABS: Glucose Point of Care 457 mg/dl (65-105)
[2021-07-08 22:11] LABS: Magnesium 1.5 mg/dL (1.6-2.3); Phosphorus 3.7 mg/dL (2.5-4.5)
[2021-07-08] MEDS: INSULIN HUMAN REGULAR (*BKC) 100 UNITS in SODIUM CHLORIDE 0.9% IV 99 ML 11.9 UNITS IV CONT (22:26)
[2021-07-08 22:49] VITALS: BP 162/86; PULSE 102; RESP 19; O2SAT 95
[2021-07-08 23:39] VITALS: BP 167/81; PULSE 98; RESP 12; O2SAT 99
[2021-07-08 23:39] LABS: Glucose Point of Care 313 mg/dl (65-105)
[2021-07-09 00:31] VITALS: PULSE 99; RESP 22; O2SAT 96
[2021-07-09 00:55] LABS: Glucose Point of Care 230 mg/dl (65-105)
--- NOTE | 2021-07-09 01:15 | PC.NURSE ---
called [facility] to request transport. ETA [id number]
[2021-07-09 01:29] VITALS: BP 156/88; PULSE 99; RESP 21; O2SAT 100
[2021-07-09 01:31] VITALS: BP 156/88; PULSE 99; RESP 21; O2SAT 99
--- NOTE | 2021-07-09 01:36 | PC.NURSE ---
[facility] here.
== END 2021-07-09 01:43 ==
PROVIDERS: Emergency Provider Emergency Medicine
DX: E11.65 Type 2 diabetes mellitus with hyperglycemia (principal); I25.10 Atherosclerotic heart disease of native coronary artery without angina pectoris; I87.2 Venous insufficiency (chronic) (peripheral); F41.8 Other specified anxiety disorders; G47.33 Obstructive sleep apnea (adult) (pediatric); E11.51 Type 2 diabetes mellitus with diabetic peripheral angiopathy without gangrene; Z86.718 Personal history of other venous thrombosis and embolism; Z89.512 Acquired absence of left leg below knee; Z79.4 Long term (current) use of insulin
CPT/HCPCS: 36415; 36600; 71045; 80053; 81001; 82010; 82805; 82948; 83735; 84100; 85025; 96361; 96365; 99284; J1815; J7030

== ENCOUNTER 2021-07-14 | Emergency (ER) | payer MEDICARE, MEDICAID, SELFPAY ==
[2021-07-14 00:07] VITALS: BP 135/58; PULSE 100; RESP 18; TEMP 36.6; O2SAT 99
[2021-07-14 00:10] LABS: Glucose Point of Care 469 mg/dl (65-105)
--- NOTE | 2021-07-14 00:46 | ED.GENADULT ---
HPI - General Adult General Chief complaint: Unspecified Stated complaint: high blood sugar Time Seen by Provider: 07/14/21 00:16 Source: patient and RN notes reviewed Mode of arrival: EMS History of Present Illness HPI narrative: THis is a 65 year old male with history of multiple medical problems including diabetes mellitus who presents for evaluation hyperglycemia. [facility] his blood sugar [facility] 500. Patient is only insulin at his facility. He has not complaints. Related Data Home Medications Medication Instructions Recorded Confirmed Therapeutic-M Vitamin/Minerals 1 tablet PO DAILY 11/14/19 05/16/21 acetaminophen [Acetaminophen Extra 500 mg PO Q6H PRN 11/14/19 05/16/21 Strength] ascorbic acid (vitamin C) 500 mg PO BID 11/14/19 05/16/21 ergocalciferol (vitamin D2) 50,000 unit PO WEEKLY 11/14/19 05/16/21 [Vitamin D2] escitalopram oxalate 5 mg PO DAILY 11/14/19 05/16/21 escitalopram oxalate 10 mg PO DAILY 11/14/19 05/16/21 gabapentin 600 mg PO TID 11/14/19 05/16/21 mirtazapine 30 mg PO HS 11/14/19 05/16/21 aspirin [Aspirin Low Dose] 81 mg PO DAILY 12/08/19 05/16/21 atorvastatin 10 mg PO HS 12/08/19 05/16/21 sennosides-docusate sodium 1 tab-cap PO DAILY 04/14/20 05/16/21 [Senexon-S] sodium chloride [Saline Nasal Mist] 1 spray INTRANASAL Q4H PRN 04/15/20 05/16/21 Victoza 2-Tushar 1.8 mg SUBCUT DAILY 03/03/21 05/16/21 buspirone 5 mg PO TID 03/03/21 05/16/21 mupirocin 1 applic TOPICAL BID 03/03/21 05/16/21 trazodone 150 mg PO HS PRN 03/03/21 05/16/21 bupropion HCl [Wellbutrin XL] 150 mg PO DAILY 05/16/21 05/16/21 insulin glargine [Lantus Solostar SUBCUT 06/16/21 U-100 Insulin] Allergies Allergy/AdvReac Type Severity Reaction Status Date / Time Penicillins AdvReac Unknown Fever Verified 07/08/21 20:53 Review of Systems Review of Systems: All systems reviewed & are unremarkable except as noted in HPI and below PMFSH Past Medical History Medical History Chronic anemia Chronic stasis dermatitis Coronary artery disease Depression with anxiety History of deep venous thrombosis Hypertension Insulin dependent type 2 diabetes mellitus Hemoglobin A1c 9.2 Obstructive sleep apnea Noncompliant with CPAP. Peripheral vascular disease Ventral hernia Chronic large left lower quadrant ventral hernia Surgical History Surgical History History of tonsillectomy Status post below-knee amputation of left lower extremity Status post herniorrhaphy Ventral hernia repair x3. Family History Family History Father , at age 69 Diabetes mellitus Family history of alcoholism Mother Diabetes mellitus Sibling Family history of emphysema Other Family history of cardiovascular disease Social History Social History Social History: The patient has been at [facility] for several years. Before that he was living with his mother in [place]. He is on disability. He had 2 daughters, one at the age of 34 from an [place]. He is a lifelong non-smoker. A former heavy drinker though he has abstained since [facility]. He denies illicit drug use. Patient wishes to be a full code. His yffzj-pj-uvjcstje is his mother, Nicolle Veloz. Smoking status: Never smoker Alcohol intake: former Drinks per week: 50 Substance use: never Gender identity (if verbalized by the patient): Male Spiritual care concerns: No Exam Const: General: cooperative, no acute distress, alert, awake and Physically active Nutritional Appearance: well nourished and obese Orientation/consciousness: patient oriented x3 HENMT: Head: normocephalic and atraumatic Face and sinus: face symmetric Mouth: Yes Normal oral and
[2021-07-14 01:09] VITALS: BP 144/69; PULSE 97; RESP 16; O2SAT 97
[2021-07-14 02:06] LABS: Fractional Inspired Oxygen 28 %; HCO3 VBG 33.5 mEq/l (24.0-30.0); PCO2 VBG 47.4 mmHg (42.0-48.0); PO2 VBG 51.1 mmHg (35.0-45.0)
[2021-07-14 02:08] LABS: Device NASAL CANNULA; pH VBG 7.467 (7.300-7.400)
[2021-07-14 02:19] LABS: Basophils Percent Auto 0.4 % (0.2-1.2); Eosinophils Absolute Auto 0.2 K/mm3 (0-0.3); Eosinophils Percent Auto 2.3 % (0-4.4); Hematocrit 35.3 % (42.0-52.0); Hemoglobin 11.4 g/dL (14.0-18.0); Immature Granulocyte Absolute 0.07 K/mm3 (0.00-0.031); Immature Granulocyte Percent A 0.8 % (0-0.5); Lymphocytes Absolute Auto 2.33 K/mm3 (0.9-3.2); Lymphocytes Percent Auto 26.1 % (18.3-44.2); Mean Corpuscular HGB Conc 32.3 g/dl (32-36); Mean Corpuscular Hemoglobin 29.5 pg (26-34); Mean Corpuscular Volume 91.2 fl (80-100); Monocytes Absolute Auto 1.2 K/mm3 (0.1-0.6); Monocytes Percent Auto 13.2 % (2.6-8.5); Neutrophils Absolute Auto 5.1 K/mm3 (1.3-6.7); Neutrophils Percent Auto 57.2 % (45.5-73.1); Platelet Count Result 224 k/mm3 (150-375); Red Blood Count 3.87 M/mm3 (4.6-6.20); White Blood Count 8.9 K/mm3 (4.5-10.0)
[2021-07-14 02:24] LABS: Alanine Aminotransferase 17 U/L (4-50); Albumin Level 4.2 g/dL (3.5-5.1); Alkaline Phosphatase 128 U/L (38-126); Anion Gap 9 mmol/L (8-16); Aspartate Amino Transferase 29 U/L (17-59); Bilirubin,Total 0.7 mg/dL (0.2-1.3); Blood Urea Nitrogen 19 mg/dL (9-20); Calcium 8.8 mg/dL (8.4-10.2); Carbon Dioxide 37 mmol/L (22-30); Chloride 86 mmol/L (98-107); Estimated CRCL calculation 85 ml/min; Estimated Glomerular Filt Rate > 60; Glucose 458 mg/dL (65-110); Potassium 3.1 mmol/L (3.4-5.0); Sodium 132 mmol/L (137-145)
[2021-07-14 02:51] VITALS: BP 133/65; PULSE 104; RESP 16; O2SAT 96
[2021-07-14] MEDS: INSULIN HUMAN REGULAR (*BKC) 100 UNITS/ML 6 UNITS SUB-Q (02:56)
[2021-07-14] MEDS: POTASSIUM CHLORIDE 20 MEQ TABLET 40 MEQ PO (02:58)
[2021-07-14] MEDS: SODIUM CHLORIDE 0.9% IV 1,000 ML 999 ML IV CONT (02:58)
[2021-07-14 04:13] VITALS: BP 146/63; PULSE 102; RESP 16; O2SAT 100
[2021-07-14 04:18] LABS: Glucose Point of Care 351 mg/dl (65-105)
[2021-07-14 04:26] LABS: Add Urine Microscopic? YES; Appearance Urine Clear (Clear); Bilirubin Urine Negative (Negative); Blood Urine Negative (Negative); Color Urine Yellow (Yellow); Glucose Urine UA 3+ mg/dL (Negative); Ketones Urine Negative (Negative); Leukocyte Esterase Ur Negative LEU/UL (Negative); Nitrate Urine Negative (Negative); Protein Urine Negative (Negative); RBC Urine 0-2 /hpf (0-2); Specific Grav Ur 1.014 (1.001-1.035); Squamous Epithelial Cell Urine Occasional /hpf (Few)
[2021-07-14 06:30] VITALS: BP 147/85; PULSE 98; RESP 16; O2SAT 100
[2021-07-14] MEDS: INSULIN ASPART (*BKC) 100 UNITS/ML 15 UNITS SUB-Q (08:03)
[2021-07-14 08:08] LABS: Glucose Point of Care 342 mg/dl (65-105)
== END 2021-07-14 11:09 ==
PROVIDERS: General Practice; Emergency Provider Emergency Medicine
DX: E11.65 Type 2 diabetes mellitus with hyperglycemia (principal); B37.2 Candidiasis of skin and nail; D64.9 Anemia, unspecified; I25.10 Atherosclerotic heart disease of native coronary artery without angina pectoris; I10 Essential (primary) hypertension; G47.33 Obstructive sleep apnea (adult) (pediatric); E11.51 Type 2 diabetes mellitus with diabetic peripheral angiopathy without gangrene; I87.2 Venous insufficiency (chronic) (peripheral); F41.8 Other specified anxiety disorders; Z86.718 Personal history of other venous thrombosis and embolism; Z79.4 Long term (current) use of insulin; Z79.82 Long term (current) use of aspirin; Z89.512 Acquired absence of left leg below knee
CPT/HCPCS: 36415; 80053; 81001; 82803; 82948; 85025; 96360; 99283; A9270; J1815; J7030

== ENCOUNTER 2022-03-14 14:44 | Emergency (ER) | payer OTHER, SELFPAY ==
[2022-03-14] VITALS (7 sets, daily range): BP systolic 115–159; BP diastolic 59–79; PULSE 96–103; RESP 18; TEMP 37.2; O2SAT 92–96
[2022-03-14 14:59] LABS: Glucose Point of Care 249 mg/dl (65-105)
--- NOTE | 2022-03-14 15:11 | ED.GENADULT ---
HPI - General Adult General Chief complaint: Recheck/Abnormal Lab/Rx Stated complaint: hyperglycemic History of Present Illness HPI narrative: 66-year-old male that has insulin-dependent diabetes presented to the emergency department for evaluation of hyperglycemia. Patient lives at a local senior living and stated approximately-1 hour prior to arrival they checked his blood sugar was greater than 600. Patient states he did receive some insulin treatment at that time. Patient states at the time he did have some associated dizziness. Upon arrival to the emergency department patient's blood sugar is significantly improved at 249. Patient states his blood sugar usually runs around 120-200. Patient denies any recent illnesses cough cold or fever. Patient denies any associated nausea or vomiting or abdominal pain. Patient denies any complaints at this time. Patient also states he does feel improved compared to when he had his blood sugar of 600. Related Data Home Medications Medication Instructions Recorded Confirmed acetaminophen 500 mg tablet 500 mg PO Q6H PRN Pain 11/14/19 07/14/21 (Acetaminophen Extra Strength) ascorbic acid (vitamin C) 500 mg 500 mg PO BID 11/14/19 07/14/21 tablet ergocalciferol (vitamin D2) 1,250 50,000 unit PO WEEKLY 11/14/19 07/14/21 mcg (50,000 unit) capsule (Vitamin D2) escitalopram oxalate 10 mg tablet 10 mg PO DAILY 11/14/19 07/14/21 escitalopram oxalate 5 mg tablet 5 mg PO DAILY 11/14/19 07/14/21 gabapentin 600 mg tablet 600 mg PO TID 11/14/19 07/14/21 mirtazapine 30 mg tablet 30 mg PO HS 11/14/19 07/14/21 multivit,tx with iron 27 1 tablet PO DAILY 11/14/19 07/14/21 pe-dboeoro-gfzyt acid 0.4 mg-minerals tablet (Therapeutic-M Vitamin/Minerals) aspirin 81 mg tablet,delayed 81 mg PO DAILY 12/08/19 07/14/21 release (Aspirin Low Dose) atorvastatin 10 mg tablet 10 mg PO HS 12/08/19 07/14/21 sennosides 8.6 mg-docusate sodium 1 tab-cap PO DAILY 04/14/20 07/14/21 50 mg tablet (Senexon-S) sodium chloride 0.65 % nasal spray 1 spray intranasal Q4H PRN Nasal 04/15/20 07/14/21 aerosol (Saline Nasal Mist) Congestion buspirone 5 mg tablet 5 mg PO TID 03/03/21 07/14/21 liraglutide 0.6 mg/0.1 mL (18 mg/3 1.8 mg subcut DAILY 03/03/21 07/14/21 mL) subcutaneous pen injector (Individual Digitalza 2-Tushar) mupirocin 2 % topical ointment 1 applic topical BID 03/03/21 07/14/21 trazodone 150 mg tablet 150 mg PO HS PRN Insomnia 03/03/21 07/14/21 bupropion HCl 150 mg 24 hr tablet, 150 mg PO DAILY 05/16/21 07/14/21 extended release (Wellbutrin XL) insulin glargine 100 unit/mL (3 subcut 06/16/21 07/14/21 mL) subcutaneous pen (Lantus Solostar U-100 Insulin) Allergies Allergy/AdvReac Type Severity Reaction Status Date / Time Penicillins AdvReac Unknown Fever Verified 07/14/21 11:42 Review of Systems Review of Systems: CONSTITUTIONAL: Denies fever, chills, or sweats. EYES: Denies visual changes, redness, or discharge. ENT: Denies rhinorrhea, congestion, sore throat, or otalgia. CARDIOVASCULAR: Denies chest pain, palpitations, or edema. RESPIRATORY: Denies cough or dyspnea. GASTROINTESTINAL: Denies abdominal pain, nausea, vomiting, or diarrhea. GENITOURINARY: Denies dysuria or hematuria. SKIN: Denies rash or itching. MUSCULOSKELETAL: Denies back pain, joint pain, or myalgia. NEUROLOGIC: Denies headache numbness or weakness but did have some associated dizziness and lightheadedness when he had the blood sugar of 600. Denies these complaints at this time. PSYCHIATRIC: Denies anxiety or depression. All systems reviewed & are unremarkable except as noted in HPI and below PMFSH Past Medical History Medical History Chronic anemia Chronic stasis dermatitis Coronary artery disease Depression with anxiety History of deep venous thrombosis Hypertension Insulin dependent type 2 diabetes mellitus Hemoglobin A1c 9.2 Obstructive sleep apnea Noncompliant wi
[2022-03-14] MEDS: SODIUM CHLORIDE 0.9% IV 1,000 ML 999 ML IV CONT (15:15)
[2022-03-14 15:22] LABS: Basophils Percent Auto 0.3 % (0.2-1.2); Eosinophils Absolute Auto 0.3 K/mm3 (0-0.3); Eosinophils Percent Auto 2.3 % (0-4.4); Hematocrit 35.2 % (42.0-52.0); Hemoglobin 11.5 g/dL (14.0-18.0); Immature Granulocyte Absolute 0.09 K/mm3 (0.00-0.031); Immature Granulocyte Percent A 0.8 % (0-0.5); Lymphocytes Absolute Auto 2.49 K/mm3 (0.9-3.2); Lymphocytes Percent Auto 22.4 % (18.3-44.2); Mean Corpuscular HGB Conc 32.7 g/dl (32-36); Mean Corpuscular Hemoglobin 30.9 pg (26-34); Mean Corpuscular Volume 94.6 fl (80-100); Mean Platelet Volume 8.3 fl (7.4-10.4); Monocytes Percent Auto 8.9 % (2.6-8.5); Neutrophils Absolute Auto 7.3 K/mm3 (1.3-6.7); Neutrophils Percent Auto 65.3 % (45.5-73.1); Platelet Count Result 231 k/mm3 (150-375); Red Blood Count 3.72 M/mm3 (4.6-6.20); Red Cell Distribution Width 13.2 % (11.5-14.5); White Blood Count 11.1 K/mm3 (4.5-10.0)
[2022-03-14 15:33] LABS: Alanine Aminotransferase 16 U/L (6-50); Albumin Level 3.8 g/dL (3.5-5.1); Alkaline Phosphatase 109 U/L (38-126); Anion Gap 8 mmol/L (8-16); Aspartate Amino Transferase 22 U/L (17-59); Bilirubin,Total 0.3 mg/dL (0.2-1.3); Blood Urea Nitrogen 35 mg/dL (9-20); Calcium 8.9 mg/dL (8.4-10.2); Carbon Dioxide 31 mmol/L (22-30); Chloride 96 mmol/L (98-107); Estimated CRCL calculation 89 ml/min; Estimated Glomerular Filt Rate > 60; Glucose 242 mg/dL (65-110); Magnesium 1.7 mg/dL (1.6-2.3); Phosphorus 3.1 mg/dL (2.5-4.5); Potassium 3.7 mmol/L (3.4-5.0); Sodium 135 mmol/L (137-145)
[2022-03-14 15:38] LABS: Beta-Hydroxybutyrate/Acetoacetate 0.11 mmol/L (0.02-0.27)
[2022-03-14 15:41] LABS: Appearance Urine Clear (Clear); Bilirubin Urine Negative (Negative); Blood Urine Negative (Negative); Color Urine Yellow (Yellow); Glucose Urine UA 1+ mg/dL (Negative); Ketones Urine Negative (Negative); Leukocyte Esterase Ur Negative LEU/UL (Negative); Nitrate Urine Negative (Negative); Protein Urine Negative (Negative); Urobilinogen Urine 0.2 mg/dL (<2.0); pH Urine 5.5 (5.0-9.0)
[2022-03-14 15:56] LABS: Mucus Urine Rare /lpf; Squamous Epithelial Cell Urine Rare /hpf (Few); WBC Urine 0-3 /hpf
[2022-03-14 16:02] LABS: Add Urine Microscopic? YES
[2022-03-14 16:39] LABS: Hemoglobin A1C 9.1 % (<5.7)
[2022-03-14 17:06] LABS: Glucose Point of Care 158 mg/dl (65-105)
--- NOTE | 2022-03-14 19:10 | PC.NURSE ---
Patient report given to JUSTINA Hess. All questions answered and care of patient transferred.
== END 2022-03-14 19:32 | disposition home or self-care (01) ==
PROVIDERS: Emergency Provider Emergency Medicine
DX: E11.65 Type 2 diabetes mellitus with hyperglycemia (principal); I25.10 Atherosclerotic heart disease of native coronary artery without angina pectoris; I10 Essential (primary) hypertension; Z79.4 Long term (current) use of insulin; Z86.718 Personal history of other venous thrombosis and embolism
CPT/HCPCS: 36415; 80053; 81001; 82010; 82948; 83036; 83735; 84100; 85025; 96360; 99283; J7030

== ENCOUNTER 2022-07-21 08:22 | Emergency (ER) | payer OTHER, SELFPAY ==
--- NOTE | ~2022-07-21 | CT_ITS ---
EXAMINATION: CT brain wo con DATE: 07/21/2022 09:15 INDICATION: Right head injury after fall TECHNIQUE: Computed tomography (CT) of the head was performed without intravenous contrast. The dose- length product was 681.00 mGy-cm. Automated exposure control and iterative reconstruction technique w ere employed. COMPARISON: CT dated 05/15/2021 FINDINGS: Generalized atrophy. There are scattered mild periventricular and subcortical white matter changes, most likely related to small vessel ischemic disease (microangiopathy). No acute intracrania l hemorrhage, infarction, mass or mass effect. No depressed skull fracture. Paranasal sinuses and mas toids are pneumatized. Chronic bilateral nasal fractures. IMPRESSION: 1. No acute intracranial abnormality. 2: Chronic age-related findings. Reviewed, dictated and finalized at location B.
--- NOTE | ~2022-07-21 | XR_ITS ---
XR knee RT 3V 07/21/2022 09:19 Indication: Right knee pain Procedure: 3 views right knee Comparison: No prior studies for comparison. Findings: No fracture, subluxation or dislocation. There is mild osteoarthritis of the right knee. No significant joint effusion. No foreign bodies. Osteopenia. Impression: 1: No acute fracture. 2: Mild tricompartment osteoarthritis. Reviewed, dictated and finalized at location B. Impression: 1: No acute fracture. 2: Mild tricompartment osteoarthritis.
[2022-07-21 08:25] VITALS: BP 144/76; PULSE 82; RESP 14; TEMP 36.4; O2SAT 96
--- NOTE | 2022-07-21 08:50 | ECG_ITS ---
Measurements Intervals [place] Rate: 83 P: -15 AK: 154 QRS: 41 QRSD: 112 T: 71 QT: 400 QTc: 470 Interpretive Statements SINUS RHYTHM INCOMPLETE RIGHT BUNDLE BRANCH BLOCK BORDERLINE ECG COMPARED TO ECG 05/15/2021 16:41:51 NO SIGNIFICANT CHANGES Electronically Signed On 07-21-2022 15:12:50 CDT by Piyush Aranda M.D.
--- NOTE | 2022-07-21 09:00 | ED.FALL ---
HPI - Fall General Chief Complaint: Fall Stated Complaint: fall Time Seen by Provider: 07/21/22 08:45 History of Present Illness HPI Narrative: Pt was sitting on bed and got up and felt light headed and lost balance and fell striking head and right knee. Pt did not lose consciousness. Pt complains of right knee pain. Pt denies other pain. Pt resides at [facility] Related Data Home Medications Medication Instructions Recorded Confirmed acetaminophen 500 mg tablet 500 mg PO Q6H PRN Pain 11/14/19 07/14/21 (Acetaminophen Extra Strength) ascorbic acid (vitamin C) 500 mg 500 mg PO BID 11/14/19 07/14/21 tablet ergocalciferol (vitamin D2) 1,250 50,000 unit PO WEEKLY 11/14/19 07/14/21 mcg (50,000 unit) capsule (Vitamin D2) escitalopram oxalate 10 mg tablet 10 mg PO DAILY 11/14/19 07/14/21 escitalopram oxalate 5 mg tablet 5 mg PO DAILY 11/14/19 07/14/21 gabapentin 600 mg tablet 600 mg PO TID 11/14/19 07/14/21 mirtazapine 30 mg tablet 30 mg PO HS 11/14/19 07/14/21 multivit,tx with iron 27 1 tablet PO DAILY 11/14/19 07/14/21 ac-bmngzfi-pencg acid 0.4 mg-minerals tablet (Therapeutic-M Vitamin/Minerals) aspirin 81 mg tablet,delayed 81 mg PO DAILY 12/08/19 07/14/21 release (Po Low Dose Aspirin) atorvastatin 10 mg tablet 10 mg PO HS 12/08/19 07/14/21 sennosides 8.6 mg-docusate sodium 1 tab-cap PO DAILY 04/14/20 07/14/21 50 mg tablet (Senexon-S) sodium chloride 0.65 % nasal spray 1 spray intranasal Q4H PRN Nasal 04/15/20 07/14/21 aerosol (Saline Nasal Mist) Congestion buspirone 5 mg tablet 5 mg PO TID 03/03/21 07/14/21 liraglutide 0.6 mg/0.1 mL (18 mg/3 1.8 mg subcut DAILY 03/03/21 07/14/21 mL) subcutaneous pen injector (Newslabsnellie 2-Tushar) mupirocin 2 % topical ointment 1 applic topical BID 03/03/21 07/14/21 trazodone 150 mg tablet 150 mg PO HS PRN Insomnia 03/03/21 07/14/21 bupropion HCl 150 mg 24 hr tablet, 150 mg PO DAILY 05/16/21 07/14/21 extended release (Wellbutrin XL) insulin glargine 100 unit/mL (3 subcut 06/16/21 07/14/21 mL) subcutaneous pen (Lantus Solostar U-100 Insulin) Allergies Allergy/AdvReac Type Severity Reaction Status Date / Time Penicillins AdvReac Unknown Fever Verified 07/21/22 08:32 Review of Systems Review of Systems: All systems reviewed & are unremarkable except as noted in HPI and below PMFSH Past Medical History Medical History (Reviewed 07/14/21 @ 11:49 by Shruti Abreu [facility]) Chronic anemia Chronic stasis dermatitis Coronary artery disease Depression with anxiety History of deep venous thrombosis Hypertension Insulin dependent type 2 diabetes mellitus Hemoglobin A1c 9.2 Obstructive sleep apnea Noncompliant with CPAP. Peripheral vascular disease Ventral hernia Chronic large left lower quadrant ventral hernia Surgical History Surgical History (Reviewed 07/14/21 @ 11:49 by Shruti Abreu [facility]) History of tonsillectomy Status post below-knee amputation of left lower extremity Status post herniorrhaphy Ventral hernia repair x3. Family History Family History (Reviewed 07/14/21 @ 11:49 by Shruti Abreu [facility]) Father , at age 69 Diabetes mellitus Family history of alcoholism Mother Diabetes mellitus Sibling Family history of emphysema Other Family history of cardiovascular disease Social History Social History (Reviewed 07/14/21 @ 11:49 by Shruti Abreu [facility]) Social History: The patient has been at [facility] for several years. Before that he was living with his mother in [place]. He is on disability. He had 2 daughters, one at the age of 34 from an [place]. He is a lifelong non-smoker. A former heavy drinker though he has abstained [facility]. He denies illicit drug use. Patient wishes to be a full code. His baoxr-si-hkbxdglz is his mother, Nicolle Veloz. Smoking status: Never smoker Alcohol intake: former Drinks per week: 50
[2022-07-21 09:08] LABS: Basophils Percent Auto 0.2 % (0.2-1.2); Eosinophils Absolute Auto 0.3 K/mm3 (0-0.3); Eosinophils Percent Auto 2.8 % (0-4.4); Hemoglobin 12.6 g/dL (14.0-18.0); Immature Granulocyte Absolute 0.07 K/mm3 (0.00-0.031); Immature Granulocyte Percent A 0.7 % (0-0.5); Lymphocytes Absolute Auto 2.26 K/mm3 (0.9-3.2); Lymphocytes Percent Auto 21.2 % (18.3-44.2); Mean Corpuscular HGB Conc 33.2 g/dl (32-36); Mean Corpuscular Hemoglobin 31.2 pg (26-34); Mean Corpuscular Volume 94.1 fl (80-100); Mean Platelet Volume 8.2 fl (7.4-10.4); Monocytes Absolute Auto 1.3 K/mm3 (0.1-0.6); Monocytes Percent Auto 11.8 % (2.6-8.5); Neutrophils Absolute Auto 6.7 K/mm3 (1.3-6.7); Neutrophils Percent Auto 63.3 % (45.5-73.1); Platelet Count Result 232 k/mm3 (150-375); Red Blood Count 4.04 M/mm3 (4.6-6.20); Red Cell Distribution Width 13.9 % (11.5-14.5); White Blood Count 10.7 K/mm3 (4.5-10.0)
[2022-07-21 09:23] LABS: Alanine Aminotransferase 26 U/L (6-50); Albumin Level 4.2 g/dL (3.5-5.1); Alkaline Phosphatase 98 U/L (38-126); Anion Gap 10 mmol/L (8-16); Aspartate Amino Transferase 36 U/L (17-59); Bilirubin,Total 0.4 mg/dL (0.2-1.3); Blood Urea Nitrogen 42 mg/dL (9-20); Calcium 9.1 mg/dL (8.4-10.2); Carbon Dioxide 32 mmol/L (22-30); Chloride 97 mmol/L (98-107); Estimated CRCL calculation 76 ml/min; Estimated Glomerular Filt Rate 60; Glucose 196 mg/dL (65-110); Potassium 3.4 mmol/L (3.4-5.0); Sodium 139 mmol/L (137-145)
[2022-07-21] MEDS: HYDROGEN PEROXIDE 3% SOLN(*SP) 473 ML BOTTLE (10:18)
--- NOTE | 2022-07-21 11:02 | PC.NURSE ---
attempted to call report back to [facility] and no answer, no voicemail available.
[2022-07-21 12:23] VITALS: BP 132/68; PULSE 97; RESP 18; O2SAT 98
--- NOTE | 2022-07-21 12:24 | PC.NURSE ---
report given to facility
== END 2022-07-21 12:57 ==
PROVIDERS: Emergency Provider Emergency Medicine
DX: S80.01XA Contusion of right knee, initial encounter (principal); S09.90XA Unspecified injury of head, initial encounter; E11.51 Type 2 diabetes mellitus with diabetic peripheral angiopathy without gangrene; I73.9 Peripheral vascular disease, unspecified; D64.9 Anemia, unspecified; I87.2 Venous insufficiency (chronic) (peripheral); I25.10 Atherosclerotic heart disease of native coronary artery without angina pectoris; I10 Essential (primary) hypertension; G47.33 Obstructive sleep apnea (adult) (pediatric); F41.8 Other specified anxiety disorders; Z89.512 Acquired absence of left leg below knee; Z86.718 Personal history of other venous thrombosis and embolism; Z79.4 Long term (current) use of insulin; Z79.82 Long term (current) use of aspirin; M17.11 Unilateral primary osteoarthritis, right knee; I45.10 Unspecified right bundle-branch block; W18.39XA Other fall on same level, initial encounter
CPT/HCPCS: 36415; 70450; 73562; 80053; 85025; 93005; 99284; A9270

== ENCOUNTER 2022-09-22 06:17 | Emergency (ER) | payer OTHER, SELFPAY ==
[2022-09-22] VITALS (36 sets, daily range): BP systolic 104–167; BP diastolic 63–115; PULSE 92–101; RESP 12–27; TEMP 36.7; O2SAT 93–98
--- NOTE | ~2022-09-22 | XR_ITS ---
XR knee LT 3V 09/22/2022 08:13 Indication: Status post fall. Patellar pain. Procedure: 3 views of the left knee Comparison: 11/15/2019 Findings: Osteopenia. There is mild osteoarthritis of the knee. No acute fracture is identified. Ther e are changes of left below-knee amputation. No erosions of the bone to suggest osteomyelitis. No sig nificant joint effusion. Impression: 1: No acute fracture. Reviewed, dictated and finalized at location A. MANUFACTURING ENGINEERING TECH Impression: 1: No acute fracture.
--- NOTE | ~2022-09-22 | CT_ITS ---
EXAMINATION: CT facial bones wo con DATE: 09/22/2022 07:56 INDICATION: Status post fall. Facial pain. TECHNIQUE: Computed tomography (CT) of the facial bones was performed without intravenous contrast. T he dose-length product was 563.88 mGy-cm. Automated exposure control and iterative reconstruction xander hnique were employed. COMPARISON: CT dated 05/15/2021 FINDINGS: No acute nasal fracture. No evidence for orbital blowout fracture. There are small bilatera l kin bullosa. No significant mucosal thickening or air-fluid level. Mild degenerative changes of the temporomandibular joints. No acute mandibular fracture. Zygomatic arches and pterygoid plates are intact. There are multiple dental caries. The orbits are symmetric without disconjugate gaze. No pos t septal soft tissue abnormalities. There are degenerative changes of the upper cervical spine with f usion of the upper cervical spine partially visualized. IMPRESSION: 1. No acute facial fracture identified. Reviewed, dictated and finalized at location A. S SALESPERSON
--- NOTE | ~2022-09-22 | CT_ITS ---
EXAMINATION: CT brain wo con DATE: 09/22/2022 07:56 INDICATION: Status post fall. Right sided facial pain. TECHNIQUE: Computed tomography (CT) of the head was performed without intravenous contrast. The dose- length product was 605.33 mGy-cm. Automated exposure control and iterative reconstruction technique w ere employed. COMPARISON: CT dated 07/21/2022 FINDINGS: No acute intracranial hemorrhage, infarction, mass or mass effect. Paranasal sinuses and ma stoids are pneumatized. No depressed skull fractures. Midline sagittal images are unremarkable. No ve ntriculomegaly or midline shift. Basilar cisterns are patent. Midline sagittal images are unremarkabl e. Mild generalized brain parenchymal volume loss. There are scattered mild periventricular and subco rtical white matter changes, most likely related to small vessel ischemic disease (microangiopathy). IMPRESSION: 1. No acute intracranial abnormality. 2: Chronic age-related findings. Reviewed, dictated and finalized at location A. TRICAL POWER STATION TECHNICIAN
--- NOTE | ~2022-09-22 | XR_ITS ---
XR shoulder RT min 2V 09/22/2022 08:13 INDICATION: Status post fall. Right scapular pain. PROCEDURE: 4 views of the right shoulder COMPARISON: No prior studies for comparison. FINDINGS: Fracture, dislocation or subluxation is not identified. There is mild polyarticular osteoar thritis of the right shoulder. There are changes of right clavicular osteotomy. Scapula is unremarkab le. The soft tissues appear within normal limits. No foreign bodies are identified. IMPRESSION: 1: NO ACUTE BONE OR JOINT ABNORMALITY IDENTIFIED. Reviewed, dictated and finalized at location A. D CARE SITTER
--- NOTE | 2022-09-22 07:19 | PC.NURSE ---
Report given to JUSTINA Landers.
--- NOTE | 2022-09-22 07:40 | ED.FALL ---
HPI - Fall General Chief Complaint: Fall Stated Complaint: slide out of bed, pain shoulder & knee Time Seen by Provider: 09/22/22 07:23 Source: patient, EMS and RN notes reviewed Mode of arrival: EMS History of Present Illness HPI Narrative: 66 years old white male [facility] because of a [facility]. History of diabetes, and left below-knee amputation. Patient is wheelchair-bound. Patient was getting out of bed this morning got dizzy a little bit while sitting on the edge of the bed then fell on the floor, 2 feet above the ground, no loss of consciousness, complaining of right side head and face pain, right shoulder and left knee. He denies any fever, chills, nausea, vomiting, chest pain, shortness of breath, abdominal pain or back pain. Patient requesting Tylenol right now. Related Data Home Medications Medication Instructions Recorded Confirmed acetaminophen 500 mg tablet 500 mg PO Q6H PRN Pain 11/14/19 07/14/21 (Acetaminophen Extra Strength) ergocalciferol (vitamin D2) 1,250 50,000 unit PO WEEKLY 11/14/19 07/14/21 mcg (50,000 unit) capsule (Vitamin D2) escitalopram oxalate 10 mg tablet 10 mg PO DAILY 11/14/19 07/14/21 escitalopram oxalate 5 mg tablet 5 mg PO DAILY 11/14/19 07/14/21 multivit,tx with iron 27 1 tablet PO DAILY 11/14/19 07/14/21 ir-sqistdt-jfpmr acid 0.4 mg-minerals tablet (Therapeutic-M Vitamin/Minerals) sennosides 8.6 mg-docusate sodium 1 tab-cap PO DAILY 04/14/20 07/14/21 50 mg tablet (Senexon-S) sodium chloride 0.65 % nasal spray 1 spray intranasal Q4H PRN Nasal 04/15/20 07/14/21 aerosol (Saline Nasal Mist) Congestion buspirone 5 mg tablet 5 mg PO BID 03/03/21 07/14/21 mupirocin 2 % topical ointment 1 applic topical BID 03/03/21 07/14/21 bupropion HCl 150 mg 24 hr tablet, 150 mg PO DAILY 05/16/21 07/14/21 extended release (Wellbutrin XL) Lactobacillus acidophilus 75 1 cap PO BID 09/22/22 million cell-pectin 100 mg capsule (Acidophilus-Pectin) dulaglutide 0.75 mg/0.5 mL 0.75 mg subcut WEEKLY 09/22/22 subcutaneous pen injector (Trulicity) furosemide 80 mg tablet 80 mg PO BID 09/22/22 glipizide 10 mg tablet 20 mg PO BID 09/22/22 guaifenesin 600 mg tablet, 600 mg PO BID 09/22/22 extended release 12 hr (Mucinex) insulin glargine 100 unit/mL (3 80 unit subcut BID 09/22/22 mL) subcutaneous pen (Basaglar KwikPen U-100 Insulin) magnesium hydroxide 400 mg/5 mL 30 ml PO DAILY PRN Constipation 09/22/22 oral suspension (Milk of Magnesia) metolazone 5 mg tablet 5 mg PO HS 09/22/22 potassium chloride 20 mEq 60 meq PO DAILY 09/22/22 tablet,extended release trazodone 50 mg tablet 50 mg PO HS PRN Insomnia 09/22/22 Allergies Allergy/AdvReac Type Severity Reaction Status Date / Time Penicillins AdvReac Unknown Fever Verified 09/22/22 06:22 Review of Systems Review of Systems: All systems reviewed & are unremarkable except as noted in HPI and below PMFSH Past Medical History Medical History Chronic anemia Chronic stasis dermatitis Coronary artery disease Depression with anxiety History of deep venous thrombosis Hypertension Insulin dependent type 2 diabetes mellitus Hemoglobin A1c 9.2 Obstructive sleep apnea Noncompliant with CPAP. Peripheral vascular disease Ventral hernia Chronic large left lower quadrant ventral hernia Surgical History Surgical History History of tonsillectomy Status post below-knee amputation of left lower extremity Status post herniorrhaphy Ventral hernia repair x3. Family History Family History Father , at age 69 Diabetes mellitus Family history of alcoholism Mother Diabetes mellitus Sibling Family history of emphysema Other Family history of cardiovascular disease Social History Social History (Reviewed
[2022-09-22] MEDS: ACETAMINOPHEN 500 MG TABLET 1000 MG PO (07:44)
[2022-09-22 08:00] LABS: Appearance Urine Clear (Clear); Bilirubin Urine Negative (Negative); Blood Urine Negative (Negative); Color Urine Yellow (Yellow); Glucose Urine UA Trace mg/dL (Negative); Ketones Urine Negative (Negative); Leukocyte Esterase Ur Negative LEU/UL (Negative); Nitrate Urine Negative (Negative); Protein Urine Negative (Negative); Specific Grav Ur 1.015 (1.001-1.035); Urobilinogen Urine 0.2 mg/dL (<2.0)
[2022-09-22 08:03] LABS: Basophils Absolute Auto 0.1 K/mm3 (0.0-0.1); Basophils Percent Auto 0.5 % (0.2-1.2); Eosinophils Absolute Auto 0.4 K/mm3 (0-0.3); Eosinophils Percent Auto 3.9 % (0-4.4); Hematocrit 32.1 % (42.0-52.0); Hemoglobin 10.6 g/dL (14.0-18.0); Immature Granulocyte Absolute 0.06 K/mm3 (0.00-0.031); Immature Granulocyte Percent A 0.6 % (0-0.5); Lymphocytes Absolute Auto 1.57 K/mm3 (0.9-3.2); Lymphocytes Percent Auto 15.9 % (18.3-44.2); Mean Corpuscular Hemoglobin 31.1 pg (26-34); Mean Corpuscular Volume 94.1 fl (80-100); Mean Platelet Volume 8.6 fl (7.4-10.4); Monocytes Absolute Auto 1.2 K/mm3 (0.1-0.6); Monocytes Percent Auto 12.4 % (2.6-8.5); Neutrophils Absolute Auto 6.6 K/mm3 (1.3-6.7); Neutrophils Percent Auto 66.7 % (45.5-73.1); Platelet Count Result 217 k/mm3 (150-375); Red Blood Count 3.41 M/mm3 (4.6-6.20); White Blood Count 9.9 K/mm3 (4.5-10.0)
[2022-09-22 08:08] LABS: Alanine Aminotransferase 22 U/L (6-50); Albumin Level 3.9 g/dL (3.5-5.1); Alkaline Phosphatase 98 U/L (38-126); Anion Gap 6 mmol/L (8-16); Aspartate Amino Transferase 26 U/L (17-59); Beta-Hydroxybutyrate/Acetoacetate 0.09 mmol/L (0.02-0.27); Bilirubin,Total 0.4 mg/dL (0.2-1.3); Blood Urea Nitrogen 44 mg/dL (9-20); Calcium 8.7 mg/dL (8.4-10.2); Carbon Dioxide 35 mmol/L (22-30); Chloride 91 mmol/L (98-107); Estimated CRCL calculation 74 ml/min; Estimated Glomerular Filt Rate 51; Glucose 332 mg/dL (65-110); Magnesium 1.9 mg/dL (1.6-2.3); Phosphorus 3.2 mg/dL (2.5-4.5); Potassium 3.1 mmol/L (3.4-5.0); Sodium 132 mmol/L (137-145)
[2022-09-22 08:11] LABS: Mucus Urine Rare /lpf; RBC Urine 0-2 /hpf (0-2)
[2022-09-22] MEDS: SODIUM CHLORIDE 0.9% IV 1,000 ML 999 ML IV CONT ×2 (08:21→08:23)
[2022-09-22] MEDS: INSULIN HUMAN REGULAR (*BKC) 100 UNITS/ML 16 UNITS IV PUSH (08:22)
[2022-09-22 08:26] LABS: Glucose Point of Care 345 mg/dl (65-105)
[2022-09-22 08:45] LABS: Fractional Inspired Oxygen 21 %; HCO3 VBG 28.2 mEq/l (24.0-30.0); PCO2 VBG 33.6 mmHg (42.0-48.0); PO2 VBG 137.8 mmHg (35.0-45.0)
[2022-09-22 08:46] LABS: pH VBG 7.542 (7.300-7.400)
[2022-09-22 08:47] LABS: Add Urine Microscopic? YES
[2022-09-22 08:47] LABS: Device ROOM AIR
[2022-09-22 09:29] LABS: Glucose Point of Care 242 mg/dl (65-105)
[2022-09-22] MEDS: POTASSIUM CHLORIDE 20 MEQ PACKET (FOR LIQUID) 40 MEQ PO (09:43)
--- NOTE | 2022-09-22 09:44 | PC.NURSE ---
[facility] [address] [facility] accepted NH Return ETA 11a Trip # [id number]
--- NOTE | 2022-09-22 10:32 | PC.NURSE ---
diabetic food tray ordered
== END 2022-09-22 11:02 ==
PROVIDERS: Emergency Provider Emergency Medicine
DX: S09.90XA Unspecified injury of head, initial encounter (principal); S49.91XA Unspecified injury of right shoulder and upper arm, initial encounter; S89.92XA Unspecified injury of left lower leg, initial encounter; E86.0 Dehydration; E87.6 Hypokalemia; E11.65 Type 2 diabetes mellitus with hyperglycemia; E11.51 Type 2 diabetes mellitus with diabetic peripheral angiopathy without gangrene; I73.9 Peripheral vascular disease, unspecified; I25.10 Atherosclerotic heart disease of native coronary artery without angina pectoris; I87.2 Venous insufficiency (chronic) (peripheral); G47.33 Obstructive sleep apnea (adult) (pediatric); D64.9 Anemia, unspecified; F41.8 Other specified anxiety disorders; Z86.718 Personal history of other venous thrombosis and embolism; Z89.512 Acquired absence of left leg below knee; Z79.4 Long term (current) use of insulin; Z79.84 Long term (current) use of oral hypoglycemic drugs; Z99.3 Dependence on wheelchair; W06.XXXA Fall from bed, initial encounter
CPT/HCPCS: 36415; 70450; 70486; 73030; 73562; 80053; 81001; 82010; 82803; 82948; 83735; 84100; 85025; 96361; 96374; 99284; A9270; J1815; J7030

== ENCOUNTER 2022-10-01 03:54 | Emergency (ER) | payer OTHER, SELFPAY ==
--- NOTE | ~2022-10-01 | XR_ITS ---
EXAMINATION: XR knee RT 3V DATE: 10/01/2022 06:48 INDICATION: Right knee pain. Fall. TECHNIQUE: 3 views of right knee were obtained. COMPARISON: Right knee radiographs 07/21/2022 FINDINGS: Bone alignment is normal. No fracture. There is moderate osteoarthritis of medial compartme nt and mild osteoarthritis of lateral and patellofemoral compartments. No knee joint effusion. IMPRESSION: 1. Moderate right knee osteoarthritis. Reviewed, dictated and finalized at location A. OMER RELATIONS ADVISOR
[2022-10-01 04:16] VITALS: BP 129/63; PULSE 90; RESP 18; TEMP 36.4; O2SAT 96
--- NOTE | 2022-10-01 05:32 | ED.LOWEXIN ---
HPI - Extremity Injury (Lower) General Chief Complaint: Extremity Injury, Lower Stated Complaint: knee pain Time Seen by Provider: 10/01/22 05:32 Source: patient and EMS Mode of arrival: EMS Limitations: no limitations History of Present Illness HPI Narrative: Patient is a 66-year-old male with a history of type 2 diabetes, peripheral vascular disease, DVT, who presents from a care facility after he rolled over in bed, which caused him to fall out of bed, with the right knee sustaining most of the impact. Patient reports dull, aching pain in the right knee. He denies hip pain. He denies back or buttock pain. No neck pain. Movement exacerbates the pain. He denies numbness. Patient denies head trauma or loss of conscious. Patient denies laceration or bleeding. Patient is wheelchair-bound secondary to obesity, left BKA. Related Data Home Medications Medication Instructions Recorded Confirmed acetaminophen 500 mg tablet 500 mg PO Q6H PRN Pain 11/14/19 07/14/21 (Acetaminophen Extra Strength) ergocalciferol (vitamin D2) 1,250 50,000 unit PO WEEKLY 11/14/19 07/14/21 mcg (50,000 unit) capsule (Vitamin D2) escitalopram oxalate 10 mg tablet 10 mg PO DAILY 11/14/19 07/14/21 escitalopram oxalate 5 mg tablet 5 mg PO DAILY 11/14/19 07/14/21 multivit,tx with iron 27 1 tablet PO DAILY 11/14/19 07/14/21 up-vuqptsb-zmkag acid 0.4 mg-minerals tablet (Therapeutic-M Vitamin/Minerals) sennosides 8.6 mg-docusate sodium 1 tab-cap PO DAILY 04/14/20 07/14/21 50 mg tablet (Senexon-S) sodium chloride 0.65 % nasal spray 1 spray intranasal Q4H PRN Nasal 04/15/20 07/14/21 aerosol (Saline Nasal Mist) Congestion buspirone 5 mg tablet 5 mg PO BID 03/03/21 07/14/21 mupirocin 2 % topical ointment 1 applic topical BID 03/03/21 07/14/21 bupropion HCl 150 mg 24 hr tablet, 150 mg PO DAILY 05/16/21 07/14/21 extended release (Wellbutrin XL) Lactobacillus acidophilus 75 1 cap PO BID 09/22/22 million cell-pectin 100 mg capsule (Acidophilus-Pectin) dulaglutide 0.75 mg/0.5 mL 0.75 mg subcut WEEKLY 09/22/22 subcutaneous pen injector (Trulicity) furosemide 80 mg tablet 80 mg PO BID 09/22/22 glipizide 10 mg tablet 20 mg PO BID 09/22/22 guaifenesin 600 mg tablet, 600 mg PO BID 09/22/22 extended release 12 hr (Mucinex) insulin glargine 100 unit/mL (3 80 unit subcut BID 09/22/22 mL) subcutaneous pen (Basaglar KwikPen U-100 Insulin) magnesium hydroxide 400 mg/5 mL 30 ml PO DAILY PRN Constipation 09/22/22 oral suspension (Milk of Magnesia) metolazone 5 mg tablet 5 mg PO HS 09/22/22 potassium chloride 20 mEq 60 meq PO DAILY 09/22/22 tablet,extended release trazodone 50 mg tablet 50 mg PO HS PRN Insomnia 09/22/22 Allergies Allergy/AdvReac Type Severity Reaction Status Date / Time Penicillins AdvReac Unknown Fever Verified 09/22/22 06:22 Review of Systems Review of Systems: CONSTITUTIONAL: Denies fever CARDIOVASCULAR: Denies chest pain RESPIRATORY: Denies cough or dyspnea. GASTROINTESTINAL: Denies abdominal pain SKIN: Denies rash MUSCULOSKELETAL: Denies back pain, reports right knee pain NEUROLOGIC: Denies headache PMF Past Medical History Medical History Chronic anemia Chronic stasis dermatitis Coronary artery disease Depression with anxiety History of deep venous thrombosis Hypertension Insulin dependent type 2 diabetes mellitus Hemoglobin A1c 9.2 Obstructive sleep apnea Noncompliant with CPAP. Peripheral vascular disease Ventral hernia Chronic large left lower quadrant ventral hernia Surgical History Surgical History History of tonsillectomy Status post below-knee amputation of left lower extremity Status post herniorrhaphy Ventral hernia repair x3. Family History Family History Father , at age 69 Diabete
[2022-10-01] MEDS: oxyCODONE/ACETAMINOPHEN (*CRX) 5-325 MG TABLET 2 TABLET PO (06:39)
--- NOTE | 2022-10-01 08:03 | PC.NURSE ---
[facility] accepted return to [facility] ETA 10a Trip #[id number]
--- NOTE | 2022-10-01 08:32 | PC.NURSE ---
diabetic diet food tray ordered
[2022-10-01 11:17] VITALS: BP 132/85; PULSE 88; RESP 16; O2SAT 96
[2022-10-01 11:35] VITALS: BP 132/85; PULSE 88; RESP 16; O2SAT 96
== END 2022-10-01 11:46 ==
PROVIDERS: Emergency Provider Emergency Medicine
DX: S86.911A Strain of unspecified muscle(s) and tendon(s) at lower leg level, right leg, initial encounter (principal); M17.11 Unilateral primary osteoarthritis, right knee; E11.51 Type 2 diabetes mellitus with diabetic peripheral angiopathy without gangrene; I73.9 Peripheral vascular disease, unspecified; I87.2 Venous insufficiency (chronic) (peripheral); I25.10 Atherosclerotic heart disease of native coronary artery without angina pectoris; I10 Essential (primary) hypertension; F41.8 Other specified anxiety disorders; D64.9 Anemia, unspecified; G47.33 Obstructive sleep apnea (adult) (pediatric); Z86.718 Personal history of other venous thrombosis and embolism; Z79.84 Long term (current) use of oral hypoglycemic drugs; Z79.4 Long term (current) use of insulin; W06.XXXA Fall from bed, initial encounter
CPT/HCPCS: 73562; 99283; A9270

== ENCOUNTER 2022-10-16 10:15 | Emergency (ER) | payer OTHER, SELFPAY ==
--- NOTE | ~2022-10-16 | CT_ITS ---
EXAMINATION: CT brain wo con DATE: 10/16/2022 10:58 INDICATION: Head injury. TECHNIQUE: Computed tomography (CT) of the head was performed without intravenous contrast. The mA wa s adjusted according to patient size. Iterative reconstruction technique was employed. The dose-lengt h product was 605.33 mGy-cm. COMPARISON: Head CT 09/22/2022 FINDINGS: There is no intracranial hemorrhage, acute infarction, or abnormal intracranial mass lesion . The ventricles are normal in size. There is mild mucosal thickening in the ethmoid sinuses. The orb its are normal. There are small bilateral mastoid effusions. IMPRESSION: 1. Normal brain. Reviewed, dictated and finalized at location A. US POLICE OFFICER IMPRESSION: 1. Normal brain.
--- NOTE | ~2022-10-16 | CT_ITS ---
EXAMINATION: CT cervical spine wo con DATE: 10/16/2022 10:58 INDICATION: Neck pain. Fall. TECHNIQUE: Computed tomography (CT) of the cervical spine was performed without intravenous contrast. Automated exposure control and iterative reconstruction technique were employed. The dose-length pro duct was 620.19 mGy-cm. COMPARISON: None FINDINGS: There is 7 degrees levocurvature of cervical spine. There is mild kyphosis of upper cervica l spine. There are changes of anterior fusion procedure from C3 to C6 with healed interbody bone remington t and anterior plate and screws. There is severely decreased disc height at C6-C7. The following disc levels are specifically discussed: C2-C3: There is no uncovertebral joint osteoarthritis. There is moderate right and mild left facet elpidio int osteoarthritis. There is no neural foraminal stenosis. There is no central canal stenosis. C3-C4: There is mild bilateral uncovertebral joint hypertrophy. There is moderate bilateral facet lisa nt hypertrophy. There is mild bilateral neural foraminal stenosis. There is mild central canal stenos is. C4-C5: There is no uncovertebral joint hypertrophy. There is no facet joint hypertrophy. There is no neural foraminal stenosis. There is no central canal stenosis. C5-C6: There is mild bilateral uncovertebral joint hypertrophy. There is mild right facet joint hyper trophy. There is mild bilateral neural foraminal stenosis. There is no central canal stenosis. C6-C7: There is moderate right and severe left uncovertebral joint osteoarthritis. There is severe ri ght and moderate left facet joint osteoarthritis. There is mild bilateral neural foraminal stenosis. There is mild central canal stenosis. C7-T1: There is no uncovertebral joint osteoarthritis. There is mild bilateral facet joint osteoarthr itis. There is no neural foraminal stenosis. There is no central canal stenosis. IMPRESSION: 1. No fracture. 2. Severe spondylosis at C6-C7 and mild spondylosis at other levels. 3. Anterior fusion procedure from C3 to C6. Reviewed, dictated and finalized at location A. OLOGIC AIDE
[2022-10-16 10:23] VITALS: BP 143/62; PULSE 95; RESP 16; TEMP 36.9; O2SAT 95
--- NOTE | 2022-10-16 10:23 | ED.FALL ---
HPI - Fall General Chief Complaint: Fall <Christina Ruiz PA-C - Last Filed: 10/16/22 14:18> Stated Complaint: Fall <Christina Ruiz PA-C - Last Filed: 10/16/22 14:18> Time Seen by Provider: 10/16/22 10:16 <Christina Ruiz PA-C - Last Filed: 10/16/22 14:18> History of Present Illness HPI Narrative: Patient is a 66-year-old male with a history of obesity, left BKA, wheelchair-bound, here from his nursing facility after a fall today. Patient states that he was sitting on the edge of his bed watching TV when he leaned too far forward, causing him to land on the right side of his body. He denies any arthralgias in his hip or knee, but states that he felt a pop in his neck when this happened. He has complained of neck pain ever since the accident. He denies any numbness or tingling in his extremities, weakness, incontinence or retention of bowel or bladder. <Christina Ruiz PA-C - Last Filed: 10/16/22 14:18> Related Data Home Medications: Home Medications Medication Instructions Recorded Confirmed acetaminophen 500 mg tablet 500 mg PO Q6H PRN Pain 11/14/19 07/14/21 (Acetaminophen Extra Strength) ergocalciferol (vitamin D2) 1,250 50,000 unit PO WEEKLY 11/14/19 07/14/21 mcg (50,000 unit) capsule (Vitamin D2) escitalopram oxalate 10 mg tablet 10 mg PO DAILY 11/14/19 07/14/21 escitalopram oxalate 5 mg tablet 5 mg PO DAILY 11/14/19 07/14/21 multivit,tx with iron 27 1 tablet PO DAILY 11/14/19 07/14/21 mi-jrafofz-ujddf acid 0.4 mg-minerals tablet (Therapeutic-M Vitamin/Minerals) sennosides 8.6 mg-docusate sodium 1 tab-cap PO DAILY 04/14/20 07/14/21 50 mg tablet (Senexon-S) sodium chloride 0.65 % nasal spray 1 spray intranasal Q4H PRN Nasal 04/15/20 07/14/21 aerosol (Saline Nasal Mist) Congestion buspirone 5 mg tablet 5 mg PO BID 03/03/21 07/14/21 mupirocin 2 % topical ointment 1 applic topical BID 03/03/21 07/14/21 bupropion HCl 150 mg 24 hr tablet, 150 mg PO DAILY 05/16/21 07/14/21 extended release (Wellbutrin XL) Lactobacillus acidophilus 75 1 cap PO BID 09/22/22 million cell-pectin 100 mg capsule (Acidophilus-Pectin) dulaglutide 0.75 mg/0.5 mL 0.75 mg subcut WEEKLY 09/22/22 subcutaneous pen injector (Trulicity) furosemide 80 mg tablet 80 mg PO BID 09/22/22 glipizide 10 mg tablet 20 mg PO BID 09/22/22 guaifenesin 600 mg tablet, 600 mg PO BID 09/22/22 extended release 12 hr (Mucinex) insulin glargine 100 unit/mL (3 80 unit subcut BID 09/22/22 mL) subcutaneous pen (Basaglar KwikPen U-100 Insulin) magnesium hydroxide 400 mg/5 mL 30 ml PO DAILY PRN Constipation 09/22/22 oral suspension (Milk of Magnesia) metolazone 5 mg tablet 5 mg PO HS 09/22/22 potassium chloride 20 mEq 60 meq PO DAILY 09/22/22 tablet,extended release trazodone 50 mg tablet 50 mg PO HS PRN Insomnia 09/22/22 <Christina Ruiz PA-C - Last Filed: 10/16/22 14:18> Allergies/Adverse Reactions: Allergies Allergy/AdvReac Type Severity Reaction Status Date / Time Penicillins AdvReac Unknown Fever Verified 10/16/22 10:26 <Christina Ruiz PA-C - Last Filed: 10/16/22 14:18> Review of Systems Review of Systems: Gen.: Denies fevers or chills Eyes: Denies eye pain or visual change ENT: Denies congestion Respiratory: Denies shortness of breath or cough CV: Denies chest pain or palpitations GI: Denies abdominal pain nausea, emesis or diarrhea denies burning, urgency, frequency or hematuria Musculoskeletal: Reports neck pain denies back pain or muscle pain Neuro: Denies numbness, tingling, weakness or focal weakness Skin: Denies rash Except as documented, all other systems reviewed and negative <Christina Ruiz PA-C - Last Filed: 10/16/22 14:18> [facility] Past Medical History Medical History: Medical History Chronic anemia Chronic stasis dermatitis Coronary phil
== END 2022-10-16 12:46 | disposition home or self-care (01) ==
PROVIDERS: Emergency Provider Emergency Medicine
DX: M54.2 Cervicalgia (principal); D64.9 Anemia, unspecified; F41.9 Anxiety disorder, unspecified; F32.9 Major depressive disorder, single episode, unspecified; E11.9 Type 2 diabetes mellitus without complications; Z79.4 Long term (current) use of insulin; G47.30 Sleep apnea, unspecified
CPT/HCPCS: 70450; 72125; 99284

== ENCOUNTER 2022-11-19 09:33 | Emergency (ER) | payer OTHER, SELFPAY ==
[2022-11-19] VITALS (16 sets, daily range): BP systolic 124–152; BP diastolic 65–79; PULSE 92–97; RESP 16–21; TEMP 36.9; O2SAT 95–96
--- NOTE | ~2022-11-19 | CT_ITS ---
CT Facial Bones and Cervical Spine Clinical Indication: Status post fall Technique: Contiguous axial scans were obtained through the facial bones and cervical spine followed by coronal and sagittal reconstructions. Dose reduction technique was used on this scan by utilizing automated exposure control and iterative reconstruction technique. The dose-length product (DLP) was 549.79 mGy-cm. Findings: CT facial bones: No fractures are identified. The visualized paranasal sinuses are clear. Intraorbita l soft tissues appear normal. CT cervical spine: No fractures or subluxation anterior fusion is present from C3 through C6, with d isc fusion device at the C3-C4 disc space. There is fusion across the remaining operative disc levels as well. There is advanced degenerative disc narrowing at C6-C7. There is also moderate to advanced degenerative change at the articulation of the odontoid process with the anterior arch of C1. There i s disc osteophyte complex at C6-C7 resulting in probable at least mild central canal stenosis. No pre vertebral soft tissue swelling. Impression: No fracture is seen in the facial bones. No acute fracture or subluxation of the cervical spine. Anterior fusion from C3 through C6. Degenerative spondylosis, particularly at C6-C7, as detailed above. Reviewed, dictated and finalized at location . OPAEDIC DOCTOR Impression: No fracture is seen in the facial bones. No acute fracture or subluxation of the cervical spine. Anterior fusion from C3 through C6. Degenerative spondylosis, particularly at C6-C7, as detailed above.
--- NOTE | ~2022-11-19 | CT_ITS ---
EXAMINATION: CT thoracic spine wo con DATE: 11/19/2022 10:18 INDICATION: Upper back pain post fall TECHNIQUE: Computed tomography (CT) of the thoracic spine was performed without intravenous contrast. Automated exposure control and iterative reconstruction technique were employed. The dose-length pro duct was 1631.04 mGy-cm. COMPARISON: None FINDINGS: 5 degrees thoracic dextrocurvature. Sagittal alignment is normal. Caudal aspect of the anterior plate and screw fixation is seen at C6 and extends beyond the cephalad margin of the imaging. Vertebral sumanth dy heights are normal. No fracture. Solidly bridging osteophytes extending from T2 through T11 with a dditional prominent solidly bridging osteophytes at T11-L2 consistent with diffuse idiopathic skeleta l hyperostosis (DISH). Moderate disc height loss from T5-T6 through T10-T11 with mild disc height los s at the remaining more cephalad and caudal thoracic levels. Severe disc height loss with degenerativ e endplate changes and posterior disc osteophyte complex at C6-C7. No thoracic central canal stenosis . Moderate bilateral multilevel thoracic facet osteoarthritis which results in mild neural foraminal stenosis at multiple levels on both the left and right. Paravertebral soft tissues are unremarkable. IMPRESSION: 1. Moderate thoracic spondylosis as well as solidly bridging osteophytes from T2 through T11 consiste nt with diffuse idiopathic skeletal hyperostosis (DISH). No acute osseous abnormality. Reviewed, dictated and finalized at location A. E DIALYSIS NURSE IMPRESSION: 1. Moderate thoracic spondylosis as well as solidly bridging osteophytes from T 2 through T11 consistent with diffuse idiopathic skeletal hyperostosis (DISH). No acute osseous abnormality.
--- NOTE | ~2022-11-19 | CT_ITS ---
Non-contrast Head CT History: Status post fall COMPARISON: 10/16/2022 Technique: Axial non-contrast imaging of the brain was performed. Dose reduction technique was used on this scan by utilizing automated exposure control and iterative reconstruction technique. The dose -length product (DLP) was 681.00 mGy-cm. Findings: There is no evidence of intracranial hemorrhage, mass lesion, or acute infarct. Brain par enchyma appears normal. The ventricles and subarachnoid spaces are normal in size. The calvarium ap pears normal. The visualized paranasal sinuses and mastoid air cells are clear. Impression: No significant abnormality seen. Reviewed, dictated and finalized at location . HEREDGER AND REDUCER MACHINE Impression: No significant abnormality seen.
--- NOTE | ~2022-11-19 | XR_ITS ---
EXAMINATION: XR shoulder RT min 2V DATE: 11/19/2022 10:30 INDICATION: Right shoulder pain post fall from bed TECHNIQUE: AP internally and externally rotated and transscapular Y views of the right shoulder were obtained. COMPARISON: 09/22/2022 FINDINGS: Again seen are changes of chronic osteotomy the lateral right clavicle. Bone alignment is normal. No fracture.The glenohumeral joint space is not sufficiently profiled to assess for joint space narrowin g. There are however osteophytes along the posterior glenoid suggesting at least mild osteoarthritis. Subtle calcific density along the inferior facet the greater tuberosity consistent with calcific ten dinitis likely of the distal teres minor or posterior most infraspinatus tendon. Densities thickening of the subpleural fat as apparent on CT dated 03/03/21. Partially visualized postoperative changes of instrumented anterior spinal fusion in the mid to lower cervical spine. IMPRESSION: 1. Chronic distal right clavicle resection. No acute osseous abnormality. 2. Mild calcific tendinitis at the distal teres minor or posterior most infraspinatus tendons. Reviewed, dictated and finalized at location A. VERY TABLE FEEDER IMPRESSION: 1. Chronic distal right clavicle resection. No acute osseous abnormality. 2. Mild calcific tendinitis at the distal teres minor or posterior most infrasp inatus tendons.
--- NOTE | 2022-11-19 09:57 | ECG_ITS ---
Measurements Intervals [place] Rate: 95 P: 90 NE: 176 QRS: 84 QRSD: 125 T: 90 QT: 311 QTc: 391 Interpretive Statements SINUS RHYTHM INCOMPLETE RIGHT BUNDLE BRANCH BLOCK Y COMPARED TO ECG 07/21/2022 09:00:24 NO DIFFERENCE Electronically Signed On 11-19-2022 15:01:34 WHEEL SETTER by Raul Acosta M.D.
--- NOTE | 2022-11-19 09:57 | ED.FALL ---
HPI - Fall General Chief Complaint: Fall Stated Complaint: fall, head injury Time Seen by Provider: 11/19/22 09:38 History of Present Illness HPI Narrative: 67-year-old male with a history of CAD, T2DM, PAD, TAWANDA reports for injuries status post fall this morning out of his bed. Patient states he was sleeping and fell off his bed, woke up on the ground. States he hit his head, back, left shoulder, face. He is complaining of the most pain in his right shoulder and mid back, along with bruising overlying his left eyebrow and eyelid. Patient is unsure why he fell out of his bed and is unable to give a clear story. Denies headache, vision changes, chest pain, shortness of breath, focal numbness and weakness. He currently resides as [facility]. Related Data Home Medications Medication Instructions Recorded Confirmed acetaminophen 500 mg tablet 500 mg PO Q6H PRN Pain 11/14/19 07/14/21 (Acetaminophen Extra Strength) ergocalciferol (vitamin D2) 1,250 50,000 unit PO WEEKLY 11/14/19 07/14/21 mcg (50,000 unit) capsule (Vitamin D2) escitalopram oxalate 10 mg tablet 10 mg PO DAILY 11/14/19 07/14/21 escitalopram oxalate 5 mg tablet 5 mg PO DAILY 11/14/19 07/14/21 multivit,tx with iron 27 1 tablet PO DAILY 11/14/19 07/14/21 nr-seuufig-qskjt acid 0.4 mg-minerals tablet (Therapeutic-M Vitamin/Minerals) sennosides 8.6 mg-docusate sodium 1 tab-cap PO DAILY 04/14/20 07/14/21 50 mg tablet (Senexon-S) sodium chloride 0.65 % nasal spray 1 spray intranasal Q4H PRN Nasal 04/15/20 07/14/21 aerosol (Saline Nasal Mist) Congestion buspirone 5 mg tablet 5 mg PO BID 03/03/21 07/14/21 mupirocin 2 % topical ointment 1 applic topical BID 03/03/21 07/14/21 bupropion HCl 150 mg 24 hr tablet, 150 mg PO DAILY 05/16/21 07/14/21 extended release (Wellbutrin XL) Lactobacillus acidophilus 75 1 cap PO BID 09/22/22 million cell-pectin 100 mg capsule (Acidophilus-Pectin) dulaglutide 0.75 mg/0.5 mL 0.75 mg subcut WEEKLY 09/22/22 subcutaneous pen injector (Trulicity) furosemide 80 mg tablet 80 mg PO BID 09/22/22 glipizide 10 mg tablet 20 mg PO BID 09/22/22 guaifenesin 600 mg tablet, 600 mg PO BID 09/22/22 extended release 12 hr (Mucinex) insulin glargine 100 unit/mL (3 80 unit subcut BID 09/22/22 mL) subcutaneous pen (Basaglar KwikPen U-100 Insulin) magnesium hydroxide 400 mg/5 mL 30 ml PO DAILY PRN Constipation 09/22/22 oral suspension (Milk of Magnesia) metolazone 5 mg tablet 5 mg PO HS 09/22/22 potassium chloride 20 mEq 60 meq PO DAILY 09/22/22 tablet,extended release trazodone 50 mg tablet 50 mg PO HS PRN Insomnia 09/22/22 Allergies Allergy/AdvReac Type Severity Reaction Status Date / Time Penicillins AdvReac Unknown Fever Verified 10/16/22 10:26 Review of Systems Review of Systems: CONSTITUTIONAL: Denies fever, chills EYES: Denies visual changes, redness, or discharge. ENT: Denies rhinorrhea, congestion, sore throat, or otalgia. CARDIOVASCULAR: Denies chest pain, palpitations RESPIRATORY: Denies cough or dyspnea. GASTROINTESTINAL: Denies abdominal pain, nausea, vomiting, or diarrhea. GENITOURINARY: Denies dysuria or hematuria. SKIN: Denies rash or itching. MUSCULOSKELETAL: Reports back pain, right shoulder pain NEUROLOGIC: Denies headache, numbness, dizziness, or weakness. PSYCHIATRIC: Denies anxiety or depression. [facility] Past Medical History Medical History Chronic anemia Chronic stasis dermatitis Coronary artery disease Depression with anxiety History of deep venous thrombosis Hypertension Insulin dependent type 2 diabetes mellitus Hemoglobin A1c 9.2 Obstructive sleep apnea Noncompliant with CPAP. Peripheral vascular disease Ventral hernia Chronic large left lower quadrant ventral hernia Surgical History Surgical History History of tonsillectomy Status post
[2022-11-19 11:05] LABS: Appearance Urine Clear (Clear); Basophils Percent Auto 0.3 % (0.2-1.2); Bilirubin Urine Negative (Negative); Blood Urine Negative (Negative); Color Urine Yellow (Yellow); Eosinophils Absolute Auto 0.2 K/mm3 (0-0.3); Eosinophils Percent Auto 2.2 % (0-4.4); Glucose Urine UA Negative (Negative); Hematocrit 36.5 % (42.0-52.0); Hemoglobin 11.7 g/dL (14.0-18.0); Immature Granulocyte Absolute 0.08 K/mm3 (0.00-0.031); Immature Granulocyte Percent A 0.8 % (0-0.5); Ketones Urine Negative (Negative); Leukocyte Esterase Ur Negative LEU/UL (Negative); Lymphocytes Absolute Auto 1.45 K/mm3 (0.9-3.2); Lymphocytes Percent Auto 14.1 % (18.3-44.2); Mean Corpuscular HGB Conc 32.1 g/dl (32-36); Mean Corpuscular Hemoglobin 30.4 pg (26-34); Mean Corpuscular Volume 94.8 fl (80-100); Mean Platelet Volume 7.9 fl (7.4-10.4); Monocytes Percent Auto 9.7 % (2.6-8.5); Neutrophils Absolute Auto 7.5 K/mm3 (1.3-6.7); Neutrophils Percent Auto 72.9 % (45.5-73.1); Nitrate Urine Negative (Negative); Platelet Count Result 212 k/mm3 (150-375); Protein Urine Negative (Negative); Red Blood Count 3.85 M/mm3 (4.6-6.20); Red Cell Distribution Width 14.3 % (11.5-14.5); Specific Grav Ur 1.015 (1.001-1.035); Urobilinogen Urine 0.2 mg/dL (<2.0); White Blood Count 10.3 K/mm3 (4.5-10.0)
[2022-11-19] MEDS: MORPHINE SULFATE (*CRX) 4 MG/ML INJ IV PUSH (11:10)
[2022-11-19 11:42] LABS: Add Urine Microscopic? NO
[2022-11-19 11:43] LABS: Alanine Aminotransferase 24 U/L (6-50); Albumin Level 4.2 g/dL (3.5-5.1); Alkaline Phosphatase 97 U/L (38-126); Anion Gap 5 mmol/L (8-16); Aspartate Amino Transferase 29 U/L (17-59); Bilirubin,Total 0.5 mg/dL (0.2-1.3); Blood Urea Nitrogen 45 mg/dL (9-20); Calcium 9.3 mg/dL (8.4-10.2); Carbon Dioxide 35 mmol/L (22-30); Chloride 95 mmol/L (98-107); Estimated Glomerular Filt Rate 55; Glucose 167 mg/dL (65-110); Potassium 2.8 mmol/L (3.4-5.0); Sodium 135 mmol/L (137-145)
[2022-11-19] MEDS: POTASSIUM CHLORIDE 20 MEQ TABLET 40 MEQ PO ×2 (11:54→14:34)
== END 2022-11-19 17:23 ==
PROVIDERS: Emergency Provider Physician Assistant
DX: M75.31 Calcific tendinitis of right shoulder (principal); E87.6 Hypokalemia; S00.12XA Contusion of left eyelid and periocular area, initial encounter; I25.10 Atherosclerotic heart disease of native coronary artery without angina pectoris; I10 Essential (primary) hypertension; E11.51 Type 2 diabetes mellitus with diabetic peripheral angiopathy without gangrene; I73.9 Peripheral vascular disease, unspecified; I87.2 Venous insufficiency (chronic) (peripheral); D64.9 Anemia, unspecified; G47.33 Obstructive sleep apnea (adult) (pediatric); F41.8 Other specified anxiety disorders; Z79.84 Long term (current) use of oral hypoglycemic drugs; Z79.4 Long term (current) use of insulin; Z86.718 Personal history of other venous thrombosis and embolism; Z89.512 Acquired absence of left leg below knee; M47.814 Spondylosis without myelopathy or radiculopathy, thoracic region; M25.78 Osteophyte, vertebrae; M47.812 Spondylosis without myelopathy or radiculopathy, cervical region; Z98.1 Arthrodesis status; I45.10 Unspecified right bundle-branch block; W06.XXXA Fall from bed, initial encounter
CPT/HCPCS: 36415; 70450; 70486; 72125; 72128; 73030; 80053; 81003; 85025; 93005; 96374; 99284; A9270; J2270

== ENCOUNTER 2023-04-23 01:26 | Emergency (ER) | payer OTHER, SELFPAY ==
[2023-04-23] VITALS (11 sets, daily range): BP systolic 138–145; BP diastolic 62–88; PULSE 95–97; RESP 14–23; TEMP 36.8; O2SAT 94–96
--- NOTE | ~2023-04-23 | XR_ITS ---
EXAMINATION: XR elbow RT 2V DATE: 04/23/2023 02:58 INDICATION: Right elbow injury. Fall. TECHNIQUE: 3 views of right elbow were obtained. COMPARISON: None. FINDINGS: Bone alignment is normal. No fracture. 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 There is heterotopic ossification distal to medial and lateral humeral epicondyles. There is an elbow joint effusion. IMPRESSION: 1. Moderate elbow joint osteoarthritis. 2. Elbow joint effusion. No fracture identified. Reviewed, dictated and finalized at location E.
--- NOTE | ~2023-04-23 | XR_ITS ---
EXAMINATION: XR shoulder RT min 2V DATE: 04/23/2023 02:58 INDICATION: Right shoulder injury. Fall. TECHNIQUE: 4 views of right shoulder were obtained. COMPARISON: Right shoulder radiographs 11/19/2022, thoracic spine CT 11/19/2022 FINDINGS: There are changes of distal clavicle resection. Bone alignment is normal. No fracture. Ther e is mild glenohumeral joint osteoarthritis. There is mild calcific tendinitis of the rotator cuff. T here are changes of anterior fusion procedure in cervical spine. Mediastinal lipomatosis is noted. IMPRESSION: 1. Mild glenohumeral joint osteoarthritis. 2. Mild calcific tendinitis of the rotator cuff. Reviewed, dictated and finalized at location E.
--- NOTE | 2023-04-23 02:00 | ED.GENADULT ---
HPI - General Adult General Chief complaint: Fall <Alexi Bella PA-C - Last Filed: 04/23/23 03:34> Stated complaint: RIGHT ELBOW PAIN S/P FALL. <Alexi Bella PA-C - Last Filed: 04/23/23 03:34> Time Seen by Provider: 04/23/23 01:34 <Alexi Bella PA-C - Last Filed: 04/23/23 03:34> Source: patient <ANURADHA Navarro Last Filed: 04/23/23 03:34> Mode of arrival: ambulatory <ANURADHA Navarro Last Filed: 04/23/23 03:34> Limitations: no limitations <ANURADHA Navarro Last Filed: 04/23/23 03:34> History of Present Illness HPI narrative: This is a 67-year-old male with PMH left BKA, DM, CAD, stasis dermatitis who presents to the ED via EMS from rehab facility with chief complaint of right shoulder and right elbow pain beginning tonight after a fall. Per EMS patient was trying to switch positions in bed when he slipped off the edge of the bed and fell onto his right side. Patient confirms this story. Denies any LOC. Denies any preceding chest pain or shortness of breath. States he accidentally slid off the bed. He now continues to complain of right shoulder and right elbow pain. Denies any further site of pain or injury. He is not on blood thinners. Denies any numbness or weakness. <Alexi Bella PA-C - Last Filed: 04/23/23 03:34> Related Data Home medications: Home Medications Medication Instructions Recorded Confirmed acetaminophen 500 mg tablet 500 mg PO Q6H PRN Pain 11/14/19 07/14/21 (Acetaminophen Extra Strength) ergocalciferol (vitamin D2) 1,250 50,000 unit PO WEEKLY 11/14/19 07/14/21 mcg (50,000 unit) capsule (Vitamin D2) escitalopram oxalate 10 mg tablet 10 mg PO DAILY 11/14/19 07/14/21 escitalopram oxalate 5 mg tablet 5 mg PO DAILY 11/14/19 07/14/21 multivit,tx with iron 27 1 tablet PO DAILY 11/14/19 07/14/21 iq-aqfeizf-[id number] acid 0.4 mg-minerals tablet (Therapeutic-M Vitamin/Minerals) sennosides 8.6 mg-docusate sodium 1 tab-cap PO DAILY 04/14/20 07/14/21 50 mg tablet (Senexon-S) sodium chloride 0.65 % nasal spray 1 spray intranasal Q4H PRN Nasal 04/15/20 07/14/21 aerosol (Saline Nasal Mist) Congestion buspirone 5 mg tablet 5 mg PO BID 03/03/21 07/14/21 mupirocin 2 % topical ointment 1 applic topical BID 03/03/21 07/14/21 bupropion HCl 150 mg 24 hr tablet, 150 mg PO DAILY 05/16/21 07/14/21 extended release (Wellbutrin XL) Lactobacillus acidophilus 75 1 cap PO BID 09/22/22 million cell-pectin 100 mg capsule (Acidophilus-Pectin) dulaglutide 0.75 mg/0.5 mL 0.75 mg subcut WEEKLY 09/22/22 subcutaneous pen injector (Trulicity) furosemide 80 mg tablet 80 mg PO BID 09/22/22 glipizide 10 mg tablet 20 mg PO BID 09/22/22 guaifenesin 600 mg tablet, 600 mg PO BID 09/22/22 extended release 12 hr (Mucinex) insulin glargine 100 unit/mL (3 80 unit subcut BID 09/22/22 mL) subcutaneous pen (Basaglar KwikPen U-100 Insulin) magnesium hydroxide 400 mg/5 mL 30 ml PO DAILY PRN Constipation 09/22/22 oral suspension (Milk of Magnesia) metolazone 5 mg tablet 5 mg PO HS 09/22/22 potassium chloride 20 mEq 60 meq PO DAILY 09/22/22 tablet,extended release trazodone 50 mg tablet 50 mg PO HS PRN Insomnia 09/22/22 <Alexi Bella PA-C - Last Filed: 04/23/23 03:34> Allergies/adverse reactions: Allergies Allergy/AdvReac Type Severity Reaction Status Date / Time Penicillins AdvReac Unknown Fever Verified 04/23/23 01:37 <Alexi Bella PA-C - Last Filed: 04/23/23 03:34> [facility] Past Medical History Medical History: Medical History Chronic anemia Chronic stasis dermatitis Coronary artery disease Depression with anxiety History of deep venous thrombosis Hypertension Insulin dependent type 2 diabetes mellitus Hemoglobin A1c 9.2 Obstructive sleep apnea Noncompliant with CPAP. Peripheral vascular disease Ventral hernia Chronic large left lower quadrant
[2023-04-23] MEDS: HYDROcodone/acetaminophen (*CRX) 7.5-325 MG TABLET 1 TAB PO (03:09)
--- NOTE | 2023-04-23 05:42 | PC.NURSE ---
Attempted to call report to the ID, no answer, will attempt to call again.
[2023-04-23] MEDS: ACETAMINOPHEN 500 MG TABLET 1000 MG PO (05:45)
== END 2023-04-23 06:32 ==
PROVIDERS: Emergency Provider Emergency Medicine
DX: S49.91XA Unspecified injury of right shoulder and upper arm, initial encounter (principal); M25.421 Effusion, right elbow; E11.51 Type 2 diabetes mellitus with diabetic peripheral angiopathy without gangrene; I73.9 Peripheral vascular disease, unspecified; I25.10 Atherosclerotic heart disease of native coronary artery without angina pectoris; I87.2 Venous insufficiency (chronic) (peripheral); I10 Essential (primary) hypertension; D64.9 Anemia, unspecified; G47.33 Obstructive sleep apnea (adult) (pediatric); F41.8 Other specified anxiety disorders; Z89.512 Acquired absence of left leg below knee; Z86.718 Personal history of other venous thrombosis and embolism; Z79.4 Long term (current) use of insulin; Z79.85 Long-term (current) use of injectable non-insulin antidiabetic drugs; Z79.84 Long term (current) use of oral hypoglycemic drugs; M19.021 Primary osteoarthritis, right elbow; M19.011 Primary osteoarthritis, right shoulder; M75.31 Calcific tendinitis of right shoulder; W06.XXXA Fall from bed, initial encounter
CPT/HCPCS: 73030; 73070; 99284; A4565; A9270

== ENCOUNTER 2023-04-27 06:53 | Emergency (ER) | payer OTHER, SELFPAY ==
--- NOTE | ~2023-04-27 | CT_ITS ---
Non-contrast Head CT History: Head injury Technique: Axial non-contrast imaging of the brain was performed. Dose reduction technique was used on this scan by utilizing automated exposure control and iterative reconstruction technique. The dose -length product (DLP) was 605.33 mGy-cm. Findings: There is no evidence of intracranial hemorrhage, mass lesion, or acute infarct. Brain par enchyma appears normal. The ventricles and subarachnoid spaces are normal in size. The calvarium ap pears normal. The visualized paranasal sinuses and mastoid air cells are clear. There are probable b ilateral nasal bone fractures. Impression: No intracranial abnormality seen. Probable bilateral nasal bone fractures. Reviewed, dictated and finalized at location . Impression: No intracranial abnormality seen. Probable bilateral nasal bone fractures.
--- NOTE | ~2023-04-27 | CT_ITS ---
CT Facial Bones Clinical Indication: Trauma Technique: Contiguous axial scans were obtained through the facial bones followed by coronal and sagi ttal reconstructions. Dose reduction technique was used on this scan by utilizing automated exposure control and iterative reconstruction technique. The dose-length product (DLP) was 696.58 mGy-cm. Findings: Bilateral minimally displaced nasal bone fractures are seen. No other fracture identified. The visualized paranasal sinuses are clear. Intraorbital soft tissues appear normal. There is soft ti ssue swelling at the left forehead. Impression: Minimally displaced bilateral nasal bone fractures. Reviewed, dictated and finalized at location . Impression: Minimally displaced bilateral nasal bone fractures.
[2023-04-27 06:54] VITALS: BP 140/74; PULSE 94; RESP 19; TEMP 36.6; O2SAT 96
[2023-04-27 07:29] VITALS: BP 140/74; PULSE 93; RESP 15; O2SAT 93
--- NOTE | 2023-04-27 07:32 | ED.FALL ---
HPI - Fall General Chief Complaint: Fall Stated Complaint: fall from bed Time Seen by Provider: 04/27/23 06:55 History of Present Illness HPI Narrative: 67-year-old male presented the emergency department from a local rehab facility after having a ground-level fall. Patient fell forward out of bed and did strike his face. Patient denies any loss of consciousness. Patient does report some facial pain. Patient has an abrasion over his left eye and a superficial laceration on the bridge of his nose. Patient denies any other pain or injury. Patient states he is not on any blood thinners Related Data Home Medications Medication Instructions Recorded Confirmed acetaminophen 500 mg tablet 500 mg PO Q6H PRN Pain 11/14/19 07/14/21 (Acetaminophen Extra Strength) ergocalciferol (vitamin D2) 1,250 50,000 unit PO WEEKLY 11/14/19 07/14/21 mcg (50,000 unit) capsule (Vitamin D2) escitalopram oxalate 10 mg tablet 10 mg PO DAILY 11/14/19 07/14/21 escitalopram oxalate 5 mg tablet 5 mg PO DAILY 11/14/19 07/14/21 multivit,tx with iron 27 1 tablet PO DAILY 11/14/19 07/14/21 ka-[id number] acid 0.4 mg-minerals tablet (Therapeutic-M Vitamin/Minerals) sennosides 8.6 mg-docusate sodium 1 tab-cap PO DAILY 04/14/20 07/14/21 50 mg tablet (Senexon-S) sodium chloride 0.65 % nasal spray 1 spray intranasal Q4H PRN Nasal 04/15/20 07/14/21 aerosol (Saline Nasal Mist) Congestion buspirone 5 mg tablet 5 mg PO BID 03/03/21 07/14/21 mupirocin 2 % topical ointment 1 applic topical BID 03/03/21 07/14/21 bupropion HCl 150 mg 24 hr tablet, 150 mg PO DAILY 05/16/21 07/14/21 extended release (Wellbutrin XL) Lactobacillus acidophilus 75 1 cap PO BID 09/22/22 million cell-pectin 100 mg capsule (Acidophilus-Pectin) dulaglutide 0.75 mg/0.5 mL 0.75 mg subcut WEEKLY 09/22/22 subcutaneous pen injector (Trulicity) furosemide 80 mg tablet 80 mg PO BID 09/22/22 glipizide 10 mg tablet 20 mg PO BID 09/22/22 guaifenesin 600 mg tablet, 600 mg PO BID 09/22/22 extended release 12 hr (Mucinex) insulin glargine 100 unit/mL (3 80 unit subcut BID 09/22/22 mL) subcutaneous pen (Basaglar KwikPen U-100 Insulin) magnesium hydroxide 400 mg/5 mL 30 ml PO DAILY PRN Constipation 09/22/22 oral suspension (Milk of Magnesia) metolazone 5 mg tablet 5 mg PO HS 09/22/22 potassium chloride 20 mEq 60 meq PO DAILY 09/22/22 tablet,extended release trazodone 50 mg tablet 50 mg PO HS PRN Insomnia 09/22/22 Allergies Allergy/AdvReac Type Severity Reaction Status Date / Time Penicillins AdvReac Unknown Fever Verified 04/27/23 07:30 Review of Systems Review of Systems: All systems reviewed & are unremarkable except as noted in HPI and below PMFSH Past Medical History Medical History Chronic anemia Chronic stasis dermatitis Coronary artery disease Depression with anxiety History of deep venous thrombosis Hypertension Insulin dependent type 2 diabetes mellitus Hemoglobin A1c 9.2 Obstructive sleep apnea Noncompliant with CPAP. Peripheral vascular disease Ventral hernia Chronic large left lower quadrant ventral hernia Surgical History Surgical History History of tonsillectomy Status post below-knee amputation of left lower extremity Status post herniorrhaphy Ventral hernia repair x3. Family History Family History Father , at age 69 Diabetes mellitus Family history of alcoholism Mother Diabetes mellitus Sibling Family history of emphysema Other Family history of cardiovascular disease Social History Social History Social History: The patient has been at [facility] for several years. Before that he was living with his mother in [place]
--- NOTE | 2023-04-27 07:36 | PC.NURSE ---
pt to CT at this time via stretcher
[2023-04-27] MEDS: TETANUS,DIPHTHERIA,AC PERTUSSIS ADULT (0.5 ML) BOOSTRIX IM (07:59)
[2023-04-27 09:38] VITALS: BP 143/78; PULSE 98; RESP 17; O2SAT 92
== END 2023-04-27 10:41 ==
PROVIDERS: Emergency Provider Emergency Medicine
DX: S02.2XXA Fracture of nasal bones, initial encounter for closed fracture (principal); Z23 Encounter for immunization; I25.10 Atherosclerotic heart disease of native coronary artery without angina pectoris; I10 Essential (primary) hypertension; I87.2 Venous insufficiency (chronic) (peripheral); E11.51 Type 2 diabetes mellitus with diabetic peripheral angiopathy without gangrene; I73.9 Peripheral vascular disease, unspecified; D64.9 Anemia, unspecified; G47.33 Obstructive sleep apnea (adult) (pediatric); F41.8 Other specified anxiety disorders; Z89.512 Acquired absence of left leg below knee; Z86.718 Personal history of other venous thrombosis and embolism; Z79.4 Long term (current) use of insulin; Z79.84 Long term (current) use of oral hypoglycemic drugs; W06.XXXA Fall from bed, initial encounter
CPT/HCPCS: 70450; 70486; 90471; 90715; 99284

== ENCOUNTER 2023-05-04 17:53 | Emergency (ER) | payer OTHER, SELFPAY ==
--- NOTE | ~2023-05-04 | XR_ITS ---
EXAM: XR shoulder RT min 2V DATE: 05/04/2023 20:38 HISTORY: pain . COMPARISON: 04/23/2023. FINDINGS: Exam mildly limited by portable technique and positioning. Normal mineralization. Distal ac romial resection/ostial lysis. No fracture or dislocation. IMPRESSION: No acute osseous finding in the right shoulder. Reviewed, dictated and finalized at location K.
--- NOTE | ~2023-05-04 | XR_ITS ---
EXAM: XR elbow RT 2V DATE: 05/04/2023 20:43 HISTORY: pain . COMPARISON: 04/23/2023, images. FINDINGS: Limited lateral view. Normal mineralization. No definite fracture or dislocation. No lytic or blastic lesion. Moderate elbow osteoarthritis. Large elbow joint effusion. No erosion or periostea l change. Soft tissues within normal limits. IMPRESSION: Limited evaluation due to difficulty positioning secondary to shoulder pain. No definite acute osseous finding in the right elbow. Persistent joint effusion. Reviewed, dictated and finalized at location K. IMPRESSION: Limited evaluation due to difficulty positioning secondary to shoul james pain. No definite acute osseous finding in the right elbow. Persistent join t effusion.
[2023-05-04 17:55] VITALS: BP 145/53; PULSE 99; RESP 22; TEMP 36.2; O2SAT 98
[2023-05-04] MEDS: HYDROcodone/acetaminophen (*CRX) 5-325 MG TABLET 1 TAB PO (20:20)
--- NOTE | 2023-05-04 20:21 | ED.GENADULT ---
HPI - General Adult General Chief complaint: Fall Stated complaint: fall/pain Time Seen by Provider: 05/04/23 20:05 History of Present Illness HPI narrative: Patient is a 67-year-old gentleman who presents emerged department with chief complaint of right shoulder and right elbow pain. Patient reports that he had a ground-level fall recently and had issues with his shoulder. The patient reports that he also may have a fracture in his elbow to the patient reports that he is not taking any pain medications other than Tylenol and reports that he is not followed up with orthopedics. Related Data Home Medications Medication Instructions Recorded Confirmed acetaminophen 500 mg tablet 500 mg PO Q6H PRN Pain 11/14/19 07/14/21 (Acetaminophen Extra Strength) ergocalciferol (vitamin D2) 1,250 50,000 unit PO WEEKLY 11/14/19 07/14/21 mcg (50,000 unit) capsule (Vitamin D2) escitalopram oxalate 10 mg tablet 10 mg PO DAILY 11/14/19 07/14/21 escitalopram oxalate 5 mg tablet 5 mg PO DAILY 11/14/19 07/14/21 multivit,tx with iron 27 1 tablet PO DAILY 11/14/19 07/14/21 of-mnvcmuh-rqnde acid 0.4 mg-minerals tablet (Therapeutic-M Vitamin/Minerals) sennosides 8.6 mg-docusate sodium 1 tab-cap PO DAILY 04/14/20 07/14/21 50 mg tablet (Senexon-S) sodium chloride 0.65 % nasal spray 1 spray intranasal Q4H PRN Nasal 04/15/20 07/14/21 aerosol (Saline Nasal Mist) Congestion buspirone 5 mg tablet 5 mg PO BID 03/03/21 07/14/21 mupirocin 2 % topical ointment 1 applic topical BID 03/03/21 07/14/21 bupropion HCl 150 mg 24 hr tablet, 150 mg PO DAILY 05/16/21 07/14/21 extended release (Wellbutrin XL) Lactobacillus acidophilus 75 1 cap PO BID 09/22/22 million cell-pectin 100 mg capsule (Acidophilus-Pectin) dulaglutide 0.75 mg/0.5 mL 0.75 mg subcut WEEKLY 09/22/22 [facility] furosemide 80 mg tablet 80 mg PO BID 09/22/22 glipizide 10 mg tablet 20 mg PO BID 09/22/22 guaifenesin 600 mg tablet, 600 mg PO BID 09/22/22 extended release 12 hr (Mucinex) insulin glargine 100 unit/mL (3 80 unit subcut BID 09/22/22 mL) subcutaneous pen (Basaglar KwikPen U-100 Insulin) magnesium hydroxide 400 mg/5 mL 30 ml PO DAILY PRN Constipation 09/22/22 oral suspension (Milk of Magnesia) metolazone 5 mg tablet 5 mg PO HS 09/22/22 potassium chloride 20 mEq 60 meq PO DAILY 09/22/22 tablet,extended release trazodone 50 mg tablet 50 mg PO HS PRN Insomnia 09/22/22 Allergies Allergy/AdvReac Type Severity Reaction Status Date / Time Penicillins AdvReac Unknown Fever Verified 05/04/23 17:54 Review of Systems Review of Systems: A 10 system review of systems was completed on the patient and is negative except for what is stated in the HPI. Nursing and ancillary documentation was reviewed. [facility] Past Medical History Medical History Chronic anemia Chronic stasis dermatitis Coronary artery disease Depression with anxiety History of deep venous thrombosis Hypertension Insulin dependent type 2 diabetes mellitus Hemoglobin A1c 9.2 Obstructive sleep apnea Noncompliant with CPAP. Peripheral vascular disease Ventral hernia Chronic large left lower quadrant ventral hernia Surgical History Surgical History History of tonsillectomy Status post below-knee amputation of left lower extremity Status post herniorrhaphy Ventral hernia repair x3. Family History Family History Father , at age 69 Diabetes mellitus Family history of alcoholism Mother Diabetes mellitus Sibling Family history of emphysema Other Family history of cardiovascular disease Social History Social History Social History: The patient has been at [facility]
[2023-05-04 22:30] VITALS: BP 142/68; PULSE 88; RESP 18; O2SAT 98
--- NOTE | 2023-05-04 22:51 | PC.NURSE ---
JUSTINA Pappas, at [facility] was given report and ETA of pt arrival
[2023-05-04 23:11] VITALS: BP 130/74; PULSE 79; O2SAT 98
== END 2023-05-04 23:12 ==
PROVIDERS: Emergency Provider Emergency Medicine
DX: S49.91XA Unspecified injury of right shoulder and upper arm, initial encounter (principal); S59.901A Unspecified injury of right elbow, initial encounter; I87.2 Venous insufficiency (chronic) (peripheral); I10 Essential (primary) hypertension; E11.51 Type 2 diabetes mellitus with diabetic peripheral angiopathy without gangrene; I73.9 Peripheral vascular disease, unspecified; D64.9 Anemia, unspecified; G47.33 Obstructive sleep apnea (adult) (pediatric); F41.8 Other specified anxiety disorders; Z86.718 Personal history of other venous thrombosis and embolism; Z89.512 Acquired absence of left leg below knee; Z79.4 Long term (current) use of insulin; Z79.84 Long term (current) use of oral hypoglycemic drugs; W18.30XA Fall on same level, unspecified, initial encounter
CPT/HCPCS: 73030; 73070; 73080; 99284; A9270

== ENCOUNTER 2023-05-12 03:44 | Emergency (ER) | payer OTHER, SELFPAY ==
--- NOTE | ~2023-05-12 | XR_ITS ---
Portable chest x-ray Comparison: 07/09/2021 Clinical History: Status post fall Findings: Lungs are clear, without focal consolidation or pleural effusion. Cardiomediastinal silho uette is stable. Cervical spine fixation hardware present. Impression: Clear lungs. Reviewed, dictated and finalized at [facility]. Impression: Clear lungs.
--- NOTE | ~2023-05-12 | CT_ITS ---
Noncontrast CT scan of the cervical spine Technique: Multiple contiguous axial [address] images of the cervical spine were obtained and rec onstructed in 2D sagittal and coronal planes on the acquisition scanner. Dose reduction technique was used on this scan by utilizing automated exposure control, adjustment of the mA and/or kV according to patient size. The dose-length product (DLP) was 672.08 mGy-cm. Clinical History: Pain COMPARISON: 11/19/2022 Findings: No fractures or dislocations. Osseous alignment is stable from prior exam. Anterior fusion hardware is present extending from C3 through C6. There is severe degenerative disc change at C6-C7. There is also advanced degenerative change at the articulation of the odontoid process with the ante rior arch of C1. There is probable mild canal stenosis at C5-C6 related to disc osteophyte convex. Th ere is probable mild to moderate canal stenosis at C6-C7, related to disc osteophyte complex. No prev ertebral soft tissue swelling. Impression: No fracture or subluxation of the cervical spine. Anterior fusion from C3 through C6. Degenerative spondylosis, as detailed above. Reviewed, dictated and finalized at location . Impression: No fracture or subluxation of the cervical spine. Anterior fusion from C3 through C6. Degenerative spondylosis, as detailed above.
--- NOTE | ~2023-05-12 | CT_ITS ---
Non-contrast Head CT History: Head trauma COMPARISON: 04/27/2023 Technique: Axial non-contrast imaging of the brain was performed. Dose reduction technique was used on this scan by utilizing automated exposure control and iterative reconstruction technique. The dose -length product (DLP) was 756.67 mGy-cm. Findings: There is no evidence of intracranial hemorrhage, mass lesion, or acute infarct. Brain par enchyma appears normal. The ventricles and subarachnoid spaces are normal in size. The calvarium ap pears normal. The visualized paranasal sinuses and mastoid air cells are clear. Impression: No significant abnormality seen. Reviewed, dictated and finalized at location . Impression: No significant abnormality seen.
[2023-05-12 03:49] VITALS: BP 129/74; PULSE 95; RESP 19; TEMP 36.4; O2SAT 96
--- NOTE | 2023-05-12 03:57 | PC.NURSE ---
Per EMS patient is coming from [facility]
[2023-05-12] MEDS: ACETAMINOPHEN 500 MG TABLET 1000 MG PO (04:04)
--- NOTE | 2023-05-12 04:15 | ED.GENADULT ---
HPI - General Adult General Chief complaint: Fall Stated complaint: fall Time Seen by Provider: 05/12/23 03:54 History of Present Illness HPI narrative: 67 year old male history of DM presented with mechanical fall. Per patient, he rolled out of bed and hit the right of his face. He continued to have pain, so called EMS. He denied injury elsewhere, chest pain shortness of breath, abdominal pain. Denied being on a blood thinner. Related Data Home Medications Medication Instructions Recorded Confirmed acetaminophen 500 mg tablet 500 mg PO Q6H PRN Pain 11/14/19 07/14/21 (Acetaminophen Extra Strength) ergocalciferol (vitamin D2) 1,250 50,000 unit PO WEEKLY 11/14/19 07/14/21 mcg (50,000 unit) capsule (Vitamin D2) escitalopram oxalate 10 mg tablet 10 mg PO DAILY 11/14/19 07/14/21 escitalopram oxalate 5 mg tablet 5 mg PO DAILY 11/14/19 07/14/21 multivit,tx with iron 27 1 tablet PO DAILY 11/14/19 07/14/21 va-qxjksuk-erpfp acid 0.4 mg-minerals tablet (Therapeutic-M Vitamin/Minerals) sennosides 8.6 mg-docusate sodium 1 tab-cap PO DAILY 04/14/20 07/14/21 50 mg tablet (Senexon-S) sodium chloride 0.65 % nasal spray 1 spray intranasal Q4H PRN Nasal 04/15/20 07/14/21 aerosol (Saline Nasal Mist) Congestion buspirone 5 mg tablet 5 mg PO BID 03/03/21 07/14/21 mupirocin 2 % topical ointment 1 applic topical BID 03/03/21 07/14/21 bupropion HCl 150 mg 24 hr tablet, 150 mg PO DAILY 05/16/21 07/14/21 extended release (Wellbutrin XL) Lactobacillus acidophilus 75 1 cap PO BID 09/22/22 million cell-pectin 100 mg capsule (Acidophilus-Pectin) dulaglutide 0.75 mg/0.5 mL 0.75 mg subcut WEEKLY 09/22/22 subcutaneous pen injector (Trulicity) furosemide 80 mg tablet 80 mg PO BID 09/22/22 glipizide 10 mg tablet 20 mg PO BID 09/22/22 guaifenesin 600 mg tablet, 600 mg PO BID 09/22/22 extended release 12 hr (Mucinex) insulin glargine 100 unit/mL (3 80 unit subcut BID 09/22/22 mL) subcutaneous pen (Basaglar KwikPen U-100 Insulin) magnesium hydroxide 400 mg/5 mL 30 ml PO DAILY PRN Constipation 09/22/22 oral suspension (Milk of Magnesia) metolazone 5 mg tablet 5 mg PO HS 09/22/22 potassium chloride 20 mEq 60 meq PO DAILY 09/22/22 tablet,extended release trazodone 50 mg tablet 50 mg PO HS PRN Insomnia 09/22/22 Allergies Allergy/AdvReac Type Severity Reaction Status Date / Time Penicillins AdvReac Unknown Fever Verified 05/04/23 17:54 Review of Systems Review of Systems: See [facility] Past Medical History Medical History Chronic anemia Chronic stasis dermatitis Coronary artery disease Depression with anxiety History of deep venous thrombosis Hypertension Insulin dependent type 2 diabetes mellitus Hemoglobin A1c 9.2 Obstructive sleep apnea Noncompliant with CPAP. Peripheral vascular disease Ventral hernia Chronic large left lower quadrant ventral hernia Surgical History Surgical History History of tonsillectomy Status post below-knee amputation of left lower extremity Status post herniorrhaphy Ventral hernia repair x3. Family History Family History Father , at age 69 Diabetes mellitus Family history of alcoholism Mother Diabetes mellitus Sibling Family history of emphysema Other Family history of cardiovascular disease Social History Social History Social History: The patient has been at [facility] for several years. Before that he was living with his mother in [place]. He is on disability. He had 2 daughters, one at the age of 34 from an [place]. He is a lifelong non-smoker. A former heavy drinker though he has abstained since moving to the [facility]. He denies illicit drug use. Patient
[2023-05-12 06:07] VITALS: BP 107/52; PULSE 96; RESP 16; O2SAT 93
[2023-05-12 06:10] VITALS: O2SAT 99
[2023-05-12 06:46] VITALS: BP 122/53; RESP 15; TEMP 36.7
--- NOTE | 2023-05-12 06:48 | PC.NURSE ---
Attempted to call [facility] twice and no one answered.
--- NOTE | 2023-05-12 07:56 | PC.NURSE ---
Transported by EMS to [facility], another attempt to call report and no answer
== END 2023-05-12 07:57 ==
PROVIDERS: Emergency Provider Emergency Medicine
DX: S00.83XA Contusion of other part of head, initial encounter (principal); E11.51 Type 2 diabetes mellitus with diabetic peripheral angiopathy without gangrene; I73.9 Peripheral vascular disease, unspecified; D64.9 Anemia, unspecified; I87.2 Venous insufficiency (chronic) (peripheral); I25.10 Atherosclerotic heart disease of native coronary artery without angina pectoris; I10 Essential (primary) hypertension; G47.33 Obstructive sleep apnea (adult) (pediatric); F41.8 Other specified anxiety disorders; Z86.718 Personal history of other venous thrombosis and embolism; Z89.512 Acquired absence of left leg below knee; Z79.84 Long term (current) use of oral hypoglycemic drugs; Z79.4 Long term (current) use of insulin; Z79.85 Long-term (current) use of injectable non-insulin antidiabetic drugs; W06.XXXA Fall from bed, initial encounter
CPT/HCPCS: 70450; 71045; 72125; 99284; A9270

== ENCOUNTER 2023-05-27 18:20 | Emergency (ER) | payer OTHER, SELFPAY ==
--- NOTE | ~2023-05-27 | XR_ITS ---
EXAM: XR knee RT 3V DATE: 05/27/2023 18:44 HISTORY: fall, injury- redness to distal right leg . COMPARISON: 10/01/2022. FINDINGS: Decreased mineralization. No fracture or dislocation. No lytic or blastic lesion. Mild tri compartmental right knee osteoarthritis. Quadriceps enthesopathy. No erosion or periosteal change. So ft tissues within normal limits. IMPRESSION: No acute osseous finding in the right knee. Reviewed, dictated and finalized at location K.
[2023-05-27 18:22] VITALS: BP 149/67; PULSE 100; RESP 18; TEMP 36.8; O2SAT 95
--- NOTE | 2023-05-27 21:06 | ED.LOWEXIN ---
HPI - Extremity Injury (Lower) General Chief Complaint: Extremity Injury, Lower Stated Complaint: fall Time Seen by Provider: 05/27/23 19:24 Source: patient and EMS Mode of arrival: EMS Limitations: no limitations History of Present Illness HPI Narrative: This is a 67 year old male that presents to the ER for right knee pain after a fall today. Patient reports he fell out of bed and landed on his right knee. Reports pain and swelling to the area. Did not hit his head or lose consciousness. No prodromal symptoms. No other focal injuries or areas of pain. Denies decreased ROM or numbness. Related Data Home Medications Medication Instructions Recorded Confirmed acetaminophen 500 mg tablet 500 mg PO Q6H PRN Pain 11/14/19 07/14/21 (Acetaminophen Extra Strength) ergocalciferol (vitamin D2) 1,250 50,000 unit PO WEEKLY 11/14/19 07/14/21 mcg (50,000 unit) capsule (Vitamin D2) escitalopram oxalate 10 mg tablet 10 mg PO DAILY 11/14/19 07/14/21 escitalopram oxalate 5 mg tablet 5 mg PO DAILY 11/14/19 07/14/21 multivit,tx with iron 27 1 tablet PO DAILY 11/14/19 07/14/21 jr-uyqdtxo-owacr acid 0.4 mg-minerals tablet (Therapeutic-M Vitamin/Minerals) sennosides 8.6 mg-docusate sodium 1 tab-cap PO DAILY 04/14/20 07/14/21 50 mg tablet (Senexon-S) sodium chloride 0.65 % nasal spray 1 spray intranasal Q4H PRN Nasal 04/15/20 07/14/21 aerosol (Saline Nasal Mist) Congestion buspirone 5 mg tablet 5 mg PO BID 03/03/21 07/14/21 mupirocin 2 % topical ointment 1 applic topical BID 03/03/21 07/14/21 bupropion HCl 150 mg 24 hr tablet, 150 mg PO DAILY 05/16/21 07/14/21 extended release (Wellbutrin XL) Lactobacillus acidophilus 75 1 cap PO BID 09/22/22 million cell-pectin 100 mg capsule (Acidophilus-Pectin) dulaglutide 0.75 mg/0.5 mL 0.75 mg subcut WEEKLY 09/22/22 subcutaneous pen injector (Trulicity) furosemide 80 mg tablet 80 mg PO BID 09/22/22 glipizide 10 mg tablet 20 mg PO BID 09/22/22 guaifenesin 600 mg tablet, 600 mg PO BID 09/22/22 extended release 12 hr (Mucinex) insulin glargine 100 unit/mL (3 80 unit subcut BID 09/22/22 mL) subcutaneous pen (Basaglar KwikPen U-100 Insulin) magnesium hydroxide 400 mg/5 mL 30 ml PO DAILY PRN Constipation 09/22/22 oral suspension (Milk of Magnesia) metolazone 5 mg tablet 5 mg PO HS 09/22/22 potassium chloride 20 mEq 60 meq PO DAILY 09/22/22 tablet,extended release trazodone 50 mg tablet 50 mg PO HS PRN Insomnia 09/22/22 Allergies Allergy/AdvReac Type Severity Reaction Status Date / Time Penicillins AdvReac Unknown Fever Verified 05/27/23 18:29 Review of Systems Review of Systems: CONSTITUTIONAL: Denies fever SKIN: Reports redness MUSCULOSKELETAL: Reports joint pain, and myalgia. NEUROLOGIC: Denies numbness, or weakness. All systems reviewed & are unremarkable except as noted in HPI and below PMFSH Past Medical History Medical History Chronic anemia Chronic stasis dermatitis Coronary artery disease Depression with anxiety History of deep venous thrombosis Hypertension Insulin dependent type 2 diabetes mellitus Hemoglobin A1c 9.2 Obstructive sleep apnea Noncompliant with CPAP. Peripheral vascular disease Ventral hernia Chronic large left lower quadrant ventral hernia Surgical History Surgical History History of tonsillectomy Status post below-knee amputation of left lower extremity Status post herniorrhaphy Ventral hernia repair x3. Family History Family History Father , at age 69 Diabetes mellitus Family history of alcoholism Mother Diabetes mellitus Sibling Family history of emphysema Other Family history of cardiovascular disease Social History Social History Social Hist
[2023-05-27] MEDS: ACETAMINOPHEN 500 MG TABLET 1000 MG PO (21:25)
[2023-05-27 21:52] VITALS: BP 135/69; PULSE 98; RESP 19; O2SAT 96
== END 2023-05-27 21:54 ==
PROVIDERS: Emergency Provider Physician Assistant
DX: M25.561 Pain in right knee (principal); L03.115 Cellulitis of right lower limb; I25.10 Atherosclerotic heart disease of native coronary artery without angina pectoris; I10 Essential (primary) hypertension; E11.9 Type 2 diabetes mellitus without complications; Z86.718 Personal history of other venous thrombosis and embolism; W06.XXXA Fall from bed, initial encounter
CPT/HCPCS: 73562; 99283; A9270

== ENCOUNTER 2023-05-28 23:14 | Observation (INO) | payer OTHER, SELFPAY ==
--- NOTE | ~2023-05-28 | XR_ITS ---
EXAMINATION: XR knee RT min 4V DATE: 05/29/2023 00:06 INDICATION: Right knee pain TECHNIQUE: Four views of the right knee were obtained. COMPARISON: 05/27/2023 FINDINGS: Alignment is normal. No fracture or osteochondral lesion. There is mild tricompartmental os teoarthritis characterized by tiny marginal osteophytes. No joint effusion/synovitis. There is mild infrapatellar soft tissue swelling of the knee. IMPRESSION: 1. No acute osseous abnormality. However, if there is high clinical suspicion for fracture, consider CT. Reviewed, dictated and finalized at location A. IMPRESSION: 1. No acute osseous abnormality. However, if there is high clinical suspicion f or fracture, consider CT.
--- NOTE | ~2023-05-28 | XR_ITS ---
EXAMINATION: XR shoulder RT min 2V INDICATION: Right shoulder pain TECHNIQUE: Four views of the right shoulder are submitted. COMPARISON: 05/04/2023 FINDINGS: The examination is limited by the patient's body habitus. Normal alignment. No fracture. T here is mild osteoarthritis of the glenohumeral joint. Changes of distal clavicle resection are noted . Soft tissues are unremarkable. IMPRESSION: 1. No acute osseous abnormality. Reviewed, dictated and finalized at location A.
[2023-05-28 23:13] VITALS: BP 147/70; PULSE 89; RESP 18; TEMP 36.1; O2SAT 93
--- NOTE | 2023-05-28 23:24 | ED.FALL ---
HPI - Fall General Chief Complaint: Fall <Christina Dykes PA-C - Last Filed: 06/02/23 18:12> Stated Complaint: glf, r. shoulder, LE pain <Christina Dykes PA-C - Last Filed: 06/02/23 18:12> Time Seen by Provider: 05/28/23 23:17 <Christina Dykes PA-C - Last Filed: 06/02/23 18:12> Source: patient <ANURADHA Mittal Last Filed: 06/02/23 18:12> Mode of arrival: EMS <ANURADHA Mittal Last Filed: 06/02/23 18:12> Limitations: no limitations <ANURADHA Mittal Last Filed: 06/02/23 18:12> History of Present Illness HPI Narrative: This is a 67-year-old male that presents to the emergency department after a fall today. Reports he got up to use the restroom. He lost his balance and fell. He landed on his right side. Reports right shoulder and knee pain. He did not hit his head or lose consciousness. Denies decreased ROM or numbness. <Christina Dykes PA-C - Last Filed: 06/02/23 18:12> Related Data Home Medications: Home Medications Medication Instructions Recorded Confirmed acetaminophen 500 mg tablet 500 mg PO Q6H PRN Pain 11/14/19 05/29/23 (Acetaminophen Extra Strength) ergocalciferol (vitamin D2) 1,250 50,000 unit PO WEEKLY 11/14/19 05/29/23 mcg (50,000 unit) capsule (Vitamin D2) escitalopram oxalate 10 mg tablet 10 mg PO DAILY 11/14/19 05/29/23 escitalopram oxalate 5 mg tablet 5 mg PO DAILY 11/14/19 05/29/23 multivit,tx with iron 27 1 tablet PO DAILY 11/14/19 05/29/23 zl-lnzorlp-mfewq acid 0.4 mg-minerals tablet (Therapeutic-M Vitamin/Minerals) sennosides 8.6 mg-docusate sodium 1 tab-cap PO DAILY 04/14/20 05/29/23 50 mg tablet (Senexon-S) sodium chloride 0.65 % nasal spray 1 spray intranasal Q4H PRN Nasal 04/15/20 05/29/23 aerosol (Saline Nasal Mist) Congestion buspirone 5 mg tablet 5 mg PO DAILY 03/03/21 05/29/23 bupropion HCl 150 mg 24 hr tablet, 150 mg PO DAILY 05/16/21 05/29/23 extended release (Wellbutrin XL) furosemide 80 mg tablet 80 mg PO BID 09/22/22 05/29/23 glipizide 10 mg tablet 20 mg PO BID 09/22/22 05/29/23 guaifenesin 600 mg tablet, 600 mg PO Q12-24H 09/22/22 05/29/23 extended release 12 hr (Mucinex) insulin glargine 100 unit/mL (3 90 unit subcut BID 09/22/22 05/29/23 mL) subcutaneous pen (Basaglar KwikPen U-100 Insulin) magnesium hydroxide 400 mg/5 mL 30 ml PO DAILY PRN Constipation 09/22/22 05/29/23 oral suspension (Milk of Magnesia) metolazone 5 mg tablet 2.5 mg PO HS 09/22/22 05/29/23 potassium chloride 20 mEq 80 meq PO TID 09/22/22 05/29/23 tablet,extended release trazodone 50 mg tablet 50 mg PO HS Insomnia 09/22/22 05/29/23 ascorbic acid (vitamin C) 500 mg 500 mg PO BID 05/29/23 05/29/23 tablet atorvastatin 10 mg tablet 10 mg PO HS 05/29/23 05/29/23 diclofenac sodium 1 % topical gel 4 g topical DAILY 05/29/23 05/29/23 famotidine 20 mg tablet 20 mg PO DAILY 05/29/23 05/29/23 insulin aspart U-100 100 unit/mL See Rx Instructions .Route .COMPLEX 05/29/23 05/29/23 (3 mL) subcutaneous pen (Novolog FlexPen U-100 Insulin aspart) magnesium oxide 400 mg PO DAILY 05/29/23 05/29/23 melatonin 3 mg tablet 3 mg PO HS 05/29/23 05/29/23 menthol 0.44 %-zinc oxide 20.6 % 1 applic topical QAM AND QPM 05/29/23 05/29/23 topical ointment (Calmoseptine) polyethylene glycol 3350 17 gram 17 g PO DAILY PRN Constipation 05/29/23 05/29/23 oral powder packet (Miralax) semaglutide 0.25 mg or 0.5 mg (2 0.5 mg subcut WEEKLY 05/29/23 05/29/23 mg/3 mL) subcutaneous pen injector (Ozempic) <Christina Dykes PA-C - Last Filed: 06/02/23 18:12> Allergies/Adverse Reactions: Allergies Allergy/AdvReac Type Severity Reaction Status Date / Time Penicillins AdvReac Unknown Fever Verified 05/29/23 02:07 <Christina Dykes PA-C - Last Filed: 06/02/23 18:12> Review of Systems Review of Systems: CONSTITUTIONAL: Denies fever GASTROINTESTINAL: Denies vomiting MUSCULOSKELETAL: Reports joint pain and myalgia. Denies b
[2023-05-29] VITALS (13 sets, daily range): BP systolic 120–149; BP diastolic 52–75; PULSE 67–96; RESP 14–20; TEMP 36.4–36.8; O2SAT 92–99; BMI 47.8
[2023-05-29 00:08] LABS: Anion Gap 5 mmol/L (8-16); Blood Urea Nitrogen 40 mg/dL (9-20); CRP 3.6 mg/dL (<1.0); Calcium 8.8 mg/dL (8.4-10.2); Carbon Dioxide 32 mmol/L (22-30); Chloride 96 mmol/L (98-107); Estimated CRCL calculation 81 ml/min; Estimated Glomerular Filt Rate 55; Glucose 309 mg/dL (65-110); Potassium 4.1 mmol/L (3.4-5.0); Sodium 133 mmol/L (137-145)
[2023-05-29 00:20] LABS: Basophils Absolute Auto 0.1 K/mm3 (0.0-0.1); Basophils Percent Auto 0.5 % (0.2-1.2); Eosinophils Absolute Auto 0.3 K/mm3 (0-0.3); Eosinophils Percent Auto 3.4 % (0-4.4); Hematocrit 32.6 % (42.0-52.0); Hemoglobin 10.2 g/dL (14.0-18.0); Immature Granulocyte Absolute 0.04 K/mm3 (0.00-0.031); Immature Granulocyte Percent A 0.4 % (0-0.5); Lymphocytes Absolute Auto 2.19 K/mm3 (0.9-3.2); Lymphocytes Percent Auto 22.2 % (18.3-44.2); Mean Corpuscular HGB Conc 31.3 g/dl (32-36); Mean Corpuscular Volume 95.9 fl (80-100); Mean Platelet Volume 8.5 fl (7.4-10.4); Monocytes Absolute Auto 1.4 K/mm3 (0.1-0.6); Monocytes Percent Auto 13.7 % (2.6-8.5); Neutrophils Absolute Auto 5.9 K/mm3 (1.3-6.7); Neutrophils Percent Auto 59.8 % (45.5-73.1); Platelet Count Result 193 k/mm3 (150-375); Red Cell Distribution Width 14.9 % (11.5-14.5); White Blood Count 9.9 K/mm3 (4.5-10.0)
[2023-05-29] MEDS: CEFEPIME 2 GM/NS 50 ML 2 GM/50 ML BAG IVPB ×2 (00:49→12:28)
--- NOTE | 2023-05-29 00:51 | PM.IMHP ---
H&P: HPI History of Present Illness Date/Time: 05/29/23 00:51 Chief Complaint: Fall Narrative: This is 67-year-old male with past medical history significant for left BKA, morbid obesity, chronic lymphedema, type diabetes mellitus, insulin dependent, patient resides at senior living. Patient with multiple falls uses a walker and prostatic leg. was evaluated and seen the day before at emergency room and sent back to senior living however had a fall again today and was brought for evaluation he was found to have right lower extremity swelling with worsening redness. Patient denies any loss of consciousness, no fevers, no rigors, no chills, no nausea, no vomiting, no diarrhea, no dizziness no lightheadedness. Patient is been admitted for further evaluation management and treatment. Patient is not a very good historian history taking has been limited. EXAM:? XR knee RT 3V DATE: 05/27/2023 18:44 HISTORY: fall, injury- redness to distal right leg . COMPARISON:? 10/01/2022. FINDINGS:? Decreased mineralization. No fracture or dislocation. No lytic or blastic lesion. Mild tricompartmental right knee osteoarthritis. Quadriceps enthesopathy. No erosion or periosteal change. Soft tissues within normal limits. IMPRESSION: No acute osseous finding in the right knee. Review of Systems Review of Systems: fall Constitutional: Constitutional: Denies chills, Denies fever(s), Reports frequent falls and Denies night sweats Eyes: Eyes: Denies change in vision ENT: Denies dysphagia, Denies vertigo, Denies dizziness and Denies odynophagia Cardiovascular: Cardiovascular: Denies chest pain, Reports leg edema, Denies radiating jaw, neck or arm pain and Denies palpitations Respiratory: Respiratory: Denies cough Gastrointestinal: Gastrointestinal: Denies abdominal pain, Denies heartburn, Denies diarrhea, Denies nausea and Denies vomiting Genitourinary: Genitourinary: Denies dysuria Musculoskeletal: Musculoskeletal: Reports other ( left BKA) Integumentary/Breasts: Skin/Breast: Reports erythema ( right lower extremity) and Reports skin swelling Neurologic: Denies focal weakness and Denies Sensory deficit (Neuro) Psychiatric: Psychiatric: Reports no additional psychiatric complaints and Reports as per HPI Endocrine: Endocrine: Denies cold intolerance, Denies flushing, Denies heat intolerance, Denies polyphagia, Denies polydipsia and Denies palpitations Hematologic/Lymphatic: Hematologic/Lymphatic: Reports no additional hematologic/lymphatic complaints and Reports as per HPI Allergic/Immunologic: Allergic/Immunologic: Reports no additional allergic/immunologic complaints and Reports as per HPI PMFSH Past Medical History Medical History Chronic anemia Chronic stasis dermatitis Coronary artery disease Depression with anxiety History of deep venous thrombosis Hypertension Insulin dependent type 2 diabetes mellitus Hemoglobin A1c 9.2 Obstructive sleep apnea Noncompliant with CPAP. Peripheral vascular disease Ventral hernia Chronic large left lower quadrant ventral hernia Surgical History Surgical History History of tonsillectomy Status post below-knee amputation of left lower extremity Status post herniorrhaphy Ventral hernia repair x3. Family History Family History (Updated 05/29/23 @ 02:07 by Chester Chua RN) Father , at age 69 Diabetes mellitus Family history of alcoholism Mother Diabetes mellitus Sibling Family history of emphysema Social History Social History Social History: The patient has been at [facility] for several years. Before that he was living with his mother in [place]. He is on disability. He had 2 daughters, one at the age of 34 from an [place]. He is a lif
[2023-05-29 00:58] LABS: Erythrocyte Sedimentation Rate > 140 mm/hr (0-20)
[2023-05-29] MEDS: metroNIDAZOLE 500 MG/ISO 100ML 500 MG/100 ML BAG 100 MG IVPB ×3 (01:20→16:49)
--- NOTE | 2023-05-29 01:45 | ADMGEN ---
This patient, Wing Veloz Jr., was admitted to Medical Room 252-01. Patient/family oriented to hospital policies and general routines including ID bracelet, bed and alarms, visiting hours, pain management, procedures, bathroom and other care routines, personal items, smoking policy, room service/diet, and visiting hours. Information on how to activate the Rapid Response Team has been discussed. Patient/Family are encouraged to report perceived risks to care and to ask questions if they do not understand what they are told or what they should do.
[2023-05-29 09:06] LABS: Anion Gap 4 mmol/L (8-16); Blood Urea Nitrogen 34 mg/dL (9-20); Calcium 8.9 mg/dL (8.4-10.2); Carbon Dioxide 31 mmol/L (22-30); Chloride 96 mmol/L (98-107); Estimated CRCL calculation 94 ml/min; Estimated Glomerular Filt Rate > 60; Glucose 293 mg/dL (65-110); Potassium 3.3 mmol/L (3.4-5.0); Sodium 131 mmol/L (137-145)
[2023-05-29] MEDS: SENNA/DOCUSATE SODIUM TABLET 1 TAB PO (09:25)
[2023-05-29] MEDS: ASCORBIC ACID 500 MG TABLET PO ×2 (09:25→16:45)
[2023-05-29] MEDS: MAGNESIUM OXIDE 400 MG TABLET PO (09:25)
[2023-05-29] MEDS: buPROPion HCL XL (24 HR) 150 MG TABCR PO (09:25)
[2023-05-29] MEDS: ESCITALOPRAM OXALATE 10 MG TABLET PO (09:26)
[2023-05-29] MEDS: FAMOTIDINE 20 MG TABLET PO (09:26)
[2023-05-29] MEDS: guaiFENesin 12 HR 600 MG TABCR PO ×2 (09:26→21:54)
[2023-05-29] MEDS: POTASSIUM CHLORIDE 20 MEQ ER TABLET 80 MEQ PO ×3 (09:26→16:45)
[2023-05-29] MEDS: busPIRone HCL 5 MG TABLET PO (09:27)
[2023-05-29] MEDS: ESCITALOPRAM OXALATE 5 MG TABLET PO (09:54)
[2023-05-29] MEDS: CYANOCOBALAMIN 1,000 MCG TABLET 1000 MCG PO (09:54)
[2023-05-29] MEDS: glipiZIDE 5 MG TABLET 20 MG PO ×2 (09:55→16:45)
[2023-05-29] MEDS: THERAPEUTIC MULTIVITAMINS/MINERALS TAB (*BKC) 1 TABLET PO (09:55)
[2023-05-29] MEDS: FUROSEMIDE 80 MG TABLET PO ×2 (09:58→16:45)
[2023-05-29 11:50] LABS: Glucose Point of Care 381 mg/dl (65-105)
[2023-05-29] MEDS: INSULIN ASPART (*BKC) 100 UNITS/ML SUB-Q (12:46)
[2023-05-29 17:03] LABS: Glucose Point of Care 453 mg/dl (65-105)
[2023-05-29] MEDS: INSULIN GLARGINE (*BKC) 100 UNITS/ML 90 UNITS SUB-Q (17:24)
[2023-05-29] MEDS: INSULIN ASPART (*BKC) 100 UNITS/ML 9 UNITS SUB-Q (17:27)
[2023-05-29 20:35] LABS: Glucose Point of Care 448 mg/dl (65-105)
[2023-05-29] MEDS: metOLazone 2.5 MG TABLET PO (21:54)
[2023-05-29] MEDS: traZODone HCL 50 MG TABLET PO (21:54)
[2023-05-29] MEDS: MELATONIN 3 MG TABLET PO (21:54)
[2023-05-29] MEDS: ATORVASTATIN 10 MG TABLET PO (21:54)
[2023-05-29] MEDS: INSULIN ASPART (*BKC) 100 UNITS/ML 15 UNITS SUB-Q (21:55)
[2023-05-30] MEDS: CEFEPIME 2 GM/NS 50 ML 2 GM/50 ML BAG IVPB ×2 (00:01→12:23)
[2023-05-30 00:05] LABS: Glucose Point of Care 362 mg/dl (65-105)
[2023-05-30] MEDS: INSULIN ASPART (*BKC) 100 UNITS/ML 8 UNITS SUB-Q (00:39)
[2023-05-30] MEDS: metroNIDAZOLE 500 MG/ISO 100ML 500 MG/100 ML BAG 100 MG IVPB ×3 (00:39→16:36)
[2023-05-30 05:48] LABS: Anion Gap 3 mmol/L (8-16); Blood Urea Nitrogen 31 mg/dL (9-20); Calcium 8.8 mg/dL (8.4-10.2); Carbon Dioxide 33 mmol/L (22-30); Chloride 95 mmol/L (98-107); Estimated CRCL calculation 94 ml/min; Estimated Glomerular Filt Rate > 60; Glucose 230 mg/dL (65-110); Potassium 3.3 mmol/L (3.4-5.0); Sodium 131 mmol/L (137-145)
[2023-05-30 06:00] VITALS: BP 122/60; PULSE 91; RESP 18; TEMP 36.4; O2SAT 96
[2023-05-30] MEDS: glipiZIDE 5 MG TABLET 20 MG PO ×2 (07:13→15:55)
[2023-05-30] MEDS: busPIRone HCL 5 MG TABLET PO (08:13)
[2023-05-30] MEDS: ERGOCALCIFEROL 50,000 UNITS CAPSULE 50000 UNITS PO (08:13)
[2023-05-30] MEDS: buPROPion HCL XL (24 HR) 150 MG TABCR PO (08:13)
[2023-05-30] MEDS: guaiFENesin 12 HR 600 MG TABCR PO ×2 (08:14→20:48)
[2023-05-30] MEDS: ESCITALOPRAM OXALATE 5 MG TABLET PO (08:14)
[2023-05-30] MEDS: FAMOTIDINE 20 MG TABLET PO (08:14)
[2023-05-30] MEDS: ESCITALOPRAM OXALATE 10 MG TABLET PO (08:14)
[2023-05-30] MEDS: THERAPEUTIC MULTIVITAMINS/MINERALS TAB (*BKC) 1 TABLET PO (08:14)
[2023-05-30 08:15] VITALS: RESP 18; O2SAT 96
[2023-05-30] MEDS: CYANOCOBALAMIN 1,000 MCG TABLET 1000 MCG PO (08:15)
[2023-05-30] MEDS: MAGNESIUM OXIDE 400 MG TABLET PO (08:15)
[2023-05-30] MEDS: SENNA/DOCUSATE SODIUM TABLET 1 TAB PO (08:15)
[2023-05-30] MEDS: FUROSEMIDE 80 MG TABLET PO ×2 (08:15→16:36)
[2023-05-30] MEDS: ASCORBIC ACID 500 MG TABLET PO ×2 (08:15→16:36)
[2023-05-30] MEDS: POTASSIUM CHLORIDE 20 MEQ ER TABLET 80 MEQ PO ×3 (08:27→16:36)
[2023-05-30 08:38] LABS: Glucose Point of Care 176 mg/dl (65-105)
[2023-05-30] MEDS: INSULIN GLARGINE (*BKC) 100 UNITS/ML 90 UNITS SUB-Q ×2 (08:56→17:27)
[2023-05-30] MEDS: DICLOFENAC SODIUM 1% 100 GM GEL (*BKC) 1 APPLIC TOPICAL ×2 (10:02→17:34)
[2023-05-30] MEDS: EUCERIN CREAM 120 GM JAR 1 APPLIC TOPICAL ×2 (10:40→20:50)
--- NOTE | 2023-05-30 11:30 | PM.IMPN ---
Progress Note: A&P Assessment and Plan (1) Cellulitis: Qualifiers: Laterality: right Site of cellulitis: extremity Site of cellulitis of extremity: lower extremity Qualified Code(s): L03.115 - Cellulitis of right lower limb Code(s): L03.90 - Cellulitis, unspecified Status: Acute Assessment and Plan: ADMIT TO REGULAR MEDICAL FLOOR PATIENT STARTED ON FLAGYL CEFEPIME AND VANCOMYCIN AWAIT CULTURES (2) Frequent falls: Code(s): R29.6 - Repeated falls Status: Acute Assessment and Plan: FALL PRECAUTIONS (3) Acute on chronic respiratory failure with hypoxia and hypercapnia: Code(s): J96.21 - Acute and chronic respiratory failure with hypoxia; J96.22 - Acute and chronic respiratory failure with hypercapnia Status: Acute Assessment and Plan: ON SUPPLEMENTAL OXYGEN BY NASAL CANNULA (4) Morbid obesity: Onset Date: Unknown Code(s): E66.01 - Morbid (severe) obesity due to excess calories Status: Acute Assessment and Plan: 1800 CALORIE RESTRICTED DIET (5) Insulin dependent type 2 diabetes mellitus: Code(s): E11.9 - Type 2 diabetes mellitus without complications; Z79.4 - intermediate project manager (current) use of insulin Status: Acute Assessment and Plan: CARB CONSISTENT DIET (6) Peripheral vascular disease: Code(s): I73.9 - Peripheral vascular disease, unspecified Status: Acute Assessment and Plan: STATUS POST LEFT BKA (7) TAWANDA (obstructive sleep apnea): Code(s): G47.33 - Obstructive sleep apnea (adult) (pediatric) Status: Acute Assessment and Plan: CPAP AT NIGHTTIME (8) Obesity hypoventilation syndrome: Code(s): E66.2 - Morbid (severe) obesity with alveolar hypoventilation Status: Acute Assessment and Plan: CPAP AT NIGHTTIME Subjective Date/time seen: 05/30/23 11:30 Interval history: no complaints Exam Narrative: patient is laying in a stretcher Const: General: comfortable, no acute distress, well developed, alert, awake, ill appearing chronically and obese Nutritional Appearance: obese morbidly obese Orientation/consciousness: patient oriented x3 Limitations: physical limitations ( left BKA) HENMT: Head: normal to inspection, normocephalic and atraumatic Ears: hearing grossly normal bilaterally Face/Nose/Sinus: normal facial exam Face and sinus: normal facial exam Eyes: General: appearance normal, both eyes and all related structures Pupils: Equal, round and reactive pupils present EOM: EOMs intact bilaterally Neck: Neck: full ROM, no lymphadenopathy and no JVD Thyroid: thyroid normal Lymphatic: no lymphadenopathy noted Resp: Effort & Inspection: normal respiratory effort and able to speak in complete sentences Auscultation: clear to auscultation bilaterally Cardio: Jugular venous distension: no JVD Rate: regular rate Rhythm: regular rhythm Heart sounds: S1 normal heart sound present and S2 normal heart sound present GI: Inspection: Pannus present and obesity : General: Yes deferred Skin: General skin exam: rashes Rashes: rashes noted Wounds: no wounds Neuro: General: patient oriented x3, CN's II-XI intact bilaterally and Unable to assess gait Cranial nerves: Yes CN's II-XII intact bilaterally and Yes Equal, round and reactive pupils present Cognition (Neuro): normal cognition Speech: normal speech Gait exam (Neuro): Unable to assess gait Motor exam (neuro): 5/5 motor strength present throughout Sensory Exam: No Sensory deficit (Neuro) Extrem: General: normal to inspection, full ROM, no joint enlargement and no pedal edema Right lower extremity: lower leg Details: erythema, tenderness and warmth Left lower extremity: lower leg Details: other ( BKA) Objective Data Vital Signs Vital Signs: Vital Signs - 24 hr 05/29/23 14:00 05/29/23 22:54 05/29/23 22:55 Temperature 97.6 F 98.2 F Pulse Rate 92 85 67 Respiratory Ra
[2023-05-30 11:49] LABS: Glucose Point of Care 314 mg/dl (65-105)
[2023-05-30] MEDS: INSULIN ASPART (*BKC) 100 UNITS/ML SUB-Q ×2 (11:51→17:26)
[2023-05-30 13:52] VITALS: BP 124/58; PULSE 88; RESP 18; TEMP 36.7; O2SAT 96
[2023-05-30 14:50] LABS: Vancomycin Trough 18.5 ug/mL (10.0-20.0)
[2023-05-30 17:09] LABS: Glucose Point of Care 266 mg/dl (65-105)
[2023-05-30 20:18] VITALS: BP 130/56; PULSE 93; RESP 20; TEMP 36.3; O2SAT 94
[2023-05-30] MEDS: MELATONIN 3 MG TABLET PO (20:48)
[2023-05-30] MEDS: ACETAMINOPHEN 500 MG TABLET PO (20:48)
[2023-05-30] MEDS: metOLazone 2.5 MG TABLET PO (20:49)
[2023-05-30] MEDS: traZODone HCL 50 MG TABLET PO (20:49)
[2023-05-30] MEDS: ATORVASTATIN 10 MG TABLET PO (20:49)
[2023-05-30 20:51] LABS: Glucose Point of Care 313 mg/dl (65-105)
[2023-05-31] MEDS: CEFEPIME 2 GM/NS 50 ML 2 GM/50 ML BAG IVPB (00:05)
[2023-05-31] MEDS: metroNIDAZOLE 500 MG/ISO 100ML 500 MG/100 ML BAG 100 MG IVPB ×2 (00:05→08:51)
[2023-05-31 05:10] VITALS: BP 121/54; PULSE 87; RESP 20; TEMP 36.1; O2SAT 94
[2023-05-31 05:28] LABS: Estimated CRCL calculation 87 ml/min; Estimated Glomerular Filt Rate 60
[2023-05-31] MEDS: glipiZIDE 5 MG TABLET 20 MG PO (07:04)
[2023-05-31 08:39] LABS: Glucose Point of Care 199 mg/dl (65-105)
[2023-05-31] MEDS: THERAPEUTIC MULTIVITAMINS/MINERALS TAB (*BKC) 1 TABLET PO (08:54)
[2023-05-31] MEDS: POTASSIUM CHLORIDE 20 MEQ ER TABLET 80 MEQ PO ×2 (08:54→12:22)
[2023-05-31] MEDS: ESCITALOPRAM OXALATE 5 MG TABLET PO (08:54)
[2023-05-31] MEDS: ESCITALOPRAM OXALATE 10 MG TABLET PO (08:55)
[2023-05-31] MEDS: CYANOCOBALAMIN 1,000 MCG TABLET 1000 MCG PO (08:55)
[2023-05-31] MEDS: buPROPion HCL XL (24 HR) 150 MG TABCR PO (08:55)
[2023-05-31] MEDS: busPIRone HCL 5 MG TABLET PO (08:55)
[2023-05-31] MEDS: SENNA/DOCUSATE SODIUM TABLET 1 TAB PO (08:55)
[2023-05-31] MEDS: MAGNESIUM OXIDE 400 MG TABLET PO (08:55)
[2023-05-31] MEDS: FUROSEMIDE 80 MG TABLET PO (08:55)
[2023-05-31] MEDS: guaiFENesin 12 HR 600 MG TABCR PO (08:55)
[2023-05-31] MEDS: INSULIN GLARGINE (*BKC) 100 UNITS/ML 90 UNITS SUB-Q (08:57)
[2023-05-31] MEDS: DICLOFENAC SODIUM 1% 100 GM GEL (*BKC) 1 APPLIC TOPICAL (08:57)
[2023-05-31] MEDS: ASCORBIC ACID 500 MG TABLET PO (09:01)
[2023-05-31] MEDS: FAMOTIDINE 20 MG TABLET PO (09:01)
[2023-05-31 09:03] VITALS: RESP 20; O2SAT 94
[2023-05-31] MEDS: EUCERIN CREAM 120 GM JAR 1 APPLIC TOPICAL (09:03)
--- NOTE | 2023-05-31 10:52 | PM.DS ---
DS: Admitting Diagnosis Discharge Date May 31, 2023 Admitting Diagnosis Cellulitis DS: Discharge Diagnosis Discharge Diagnosis (1) Cellulitis: Qualifiers: Laterality: right Site of cellulitis: extremity Site of cellulitis of extremity: lower extremity Qualified Code(s): L03.115 - Cellulitis of right lower limb Code(s): L03.90 - Cellulitis, unspecified Status: Acute Assessment and Plan: ADMIT TO REGULAR MEDICAL FLOOR PATIENT STARTED ON FLAGYL CEFEPIME AND VANCOMYCIN AWAIT CULTURES (2) Frequent falls: Code(s): R29.6 - Repeated falls Status: Acute Assessment and Plan: FALL PRECAUTIONS (3) Acute on chronic respiratory failure with hypoxia and hypercapnia: Code(s): J96.21 - Acute and chronic respiratory failure with hypoxia; J96.22 - Acute and chronic respiratory failure with hypercapnia Status: Acute Assessment and Plan: ON SUPPLEMENTAL OXYGEN BY NASAL CANNULA (4) Morbid obesity: Onset Date: Unknown Code(s): E66.01 - Morbid (severe) obesity due to excess calories Status: Acute Assessment and Plan: 1800 CALORIE RESTRICTED DIET (5) Insulin dependent type 2 diabetes mellitus: Code(s): E11.9 - Type 2 diabetes mellitus without complications; Z79.4 - manager intermediate (current) use of insulin Status: Acute Assessment and Plan: CARB CONSISTENT DIET (6) Peripheral vascular disease: Code(s): I73.9 - Peripheral vascular disease, unspecified Status: Acute Assessment and Plan: STATUS POST LEFT BKA (7) TAWADNA (obstructive sleep apnea): Code(s): G47.33 - Obstructive sleep apnea (adult) (pediatric) Status: Acute Assessment and Plan: CPAP AT NIGHTTIME (8) Obesity hypoventilation syndrome: Code(s): E66.2 - Morbid (severe) obesity with alveolar hypoventilation Status: Acute Assessment and Plan: CPAP AT NIGHTTIME DS: Summary Hospital Course Hospital Course: 67-year-old who is morbidly obese came in right-sided lower extremity cellulitis. Patient was not septic. Started on IV antibiotics and did well. He will be discharged on doxycycline. Time Spent with Patient Time attestation: Total time spent providing and/or coordinating discharge services: Exam Narrative: patient is laying in a stretcher Const: General: comfortable, no acute distress, well developed, alert, awake, ill appearing chronically and obese Nutritional Appearance: obese morbidly obese Orientation/consciousness: patient oriented x3 Limitations: physical limitations ( left BKA) HENMT: Head: normal to inspection, normocephalic and atraumatic Ears: hearing grossly normal bilaterally Face/Nose/Sinus: normal facial exam Face and sinus: normal facial exam Eyes: General: appearance normal, both eyes and all related structures Pupils: Equal, round and reactive pupils present EOM: EOMs intact bilaterally Neck: Neck: full ROM, no lymphadenopathy and no JVD Thyroid: thyroid normal Lymphatic: no lymphadenopathy noted Resp: Effort & Inspection: normal respiratory effort and able to speak in complete sentences Auscultation: clear to auscultation bilaterally Cardio: Jugular venous distension: no JVD Rate: regular rate Rhythm: regular rhythm Heart sounds: S1 normal heart sound present and S2 normal heart sound present GI: Inspection: Pannus present and obesity : General: Yes deferred Skin: General skin exam: rashes Rashes: rashes noted Wounds: no wounds Neuro: General: patient oriented x3, CN's II-XI intact bilaterally and Unable to assess gait Cranial nerves: Yes CN's II-XII intact bilaterally and Yes Equal, round and reactive pupils present Cognition (Neuro): normal cognition Speech: normal speech Gait exam (Neuro): Unable to assess gait Motor exam (neuro): 5/5 motor strength present throughout Sensory Exam: No Sensory deficit (Neuro) Extrem: General: normal to inspectio
[2023-05-31 11:47] LABS: SARS-CoV-2 RNA PCR Negative (Negative)
[2023-05-31 12:09] LABS: Glucose Point of Care 280 mg/dl (65-105)
[2023-05-31] MEDS: INSULIN ASPART (*BKC) 100 UNITS/ML SUB-Q (12:27)
[2023-05-31 13:34] VITALS: BP 114/48; PULSE 90; RESP 18; TEMP 36; O2SAT 95
== END 2023-05-31 14:40 ==
LOC: ANHED 05-29 01:01 → ANH2MED 05-29 01:30
PROVIDERS: Admitting Provider Internal Medicine; Emergency Provider Physician Assistant; Visit Provider Chiropractor
DX: L03.115 Cellulitis of right lower limb (principal); R29.6 Repeated falls; W01.0XXA Fall on same level from slipping, tripping and stumbling without subsequent striking against object, initial encounter; J96.21 Acute and chronic respiratory failure with hypoxia; J96.22 Acute and chronic respiratory failure with hypercapnia; I10 Essential (primary) hypertension; E11.51 Type 2 diabetes mellitus with diabetic peripheral angiopathy without gangrene; I25.10 Atherosclerotic heart disease of native coronary artery without angina pectoris; I87.2 Venous insufficiency (chronic) (peripheral); D64.9 Anemia, unspecified; F41.8 Other specified anxiety disorders; Z20.822 Contact with and (suspected) exposure to COVID-19; Z86.718 Personal history of other venous thrombosis and embolism; Z89.512 Acquired absence of left leg below knee; Z79.84 Long term (current) use of oral hypoglycemic drugs; Z79.4 Long term (current) use of insulin; Z79.899 Other long term (current) drug therapy; E66.2 Morbid (severe) obesity with alveolar hypoventilation; Z68.42 Body mass index [BMI] 45.0-49.9, adult; Z99.81 Dependence on supplemental oxygen
CPT/HCPCS: 36415; 73030; 73564; 80048; 80202; 82565; 82948; 85025; 85652; 86140; 87040; 87635; 96365; 96366; 96367; 99285; A9270; G0378; J0692; J1815; J1836; J3370

== ENCOUNTER 2023-06-03 22:12 | Emergency (ER) | payer OTHER, SELFPAY ==
--- NOTE | ~2023-06-03 | XR_ITS ---
EXAM: XR shoulder RT min 2V DATE: 06/03/2023 23:00 HISTORY: fall right shoulder pain . COMPARISON: 05/28/2023. FINDINGS: Normal mineralization. No fracture or dislocation. No lytic or blastic lesion. Cervical fu gene hardware. Mild degenerative change in the glenohumeral joint. Calcific rotator cuff tendinitis. Distal clavicular resection. No erosion or periosteal change. Soft tissues within normal limits. IMPRESSION: No acute osseous finding in the right shoulder. Reviewed, dictated and finalized at location K.
--- NOTE | ~2023-06-03 | XR_ITS ---
EXAM: [id number] DATE: 06/03/2023 23:00 HISTORY: pain after fall . COMPARISON: 05/28/2023. FINDINGS: Decreased mineralization. No fracture or dislocation. No lytic or blastic lesion. Tricompa rtmental right knee osteoarthritis, moderate in the medial compartment. No erosion or periosteal mcarthur ge. Soft tissues within normal limits. IMPRESSION: No acute osseous finding in the right knee. Reviewed, dictated and finalized at location K.
[2023-06-03 22:21] VITALS: BP 135/97; PULSE 85; RESP 21; TEMP 36.7; O2SAT 95
--- NOTE | 2023-06-04 02:15 | ED.FALL ---
HPI - Fall General Chief Complaint: Fall Stated Complaint: fall Time Seen by Provider: 06/04/23 02:10 Source: patient Mode of arrival: EMS Limitations: no limitations History of Present Illness HPI Narrative: This is a 67-year-old male that presents to the emergency department for right shoulder and knee pain after a fall today. Reports he lost his balance getting out of bed. Has history of frequent falls. He was not having any prodromal symptoms. He landed on his right side. He did not hit his head or lose consciousness. Denies focal numbness or weakness. Related Data Home Medications Medication Instructions Recorded Confirmed acetaminophen 500 mg tablet 500 mg PO Q6H PRN Pain 11/14/19 05/29/23 (Acetaminophen Extra Strength) ergocalciferol (vitamin D2) 1,250 50,000 unit PO WEEKLY 11/14/19 05/29/23 mcg (50,000 unit) capsule (Vitamin D2) escitalopram oxalate 10 mg tablet 10 mg PO DAILY 11/14/19 05/29/23 escitalopram oxalate 5 mg tablet 5 mg PO DAILY 11/14/19 05/29/23 multivit,tx with iron 27 1 tablet PO DAILY 11/14/19 05/29/23 mz-flkibkj-lbpiq acid 0.4 mg-minerals tablet (Therapeutic-M Vitamin/Minerals) sennosides 8.6 mg-docusate sodium 1 tab-cap PO DAILY 04/14/20 05/29/23 50 mg tablet (Senexon-S) sodium chloride 0.65 % nasal spray 1 spray intranasal Q4H PRN Nasal 04/15/20 05/29/23 aerosol (Saline Nasal Mist) Congestion buspirone 5 mg tablet 5 mg PO DAILY 03/03/21 05/29/23 bupropion HCl 150 mg 24 hr tablet, 150 mg PO DAILY 05/16/21 05/29/23 extended release (Wellbutrin XL) furosemide 80 mg tablet 80 mg PO BID 09/22/22 05/29/23 glipizide 10 mg tablet 20 mg PO BID 09/22/22 05/29/23 guaifenesin 600 mg tablet, 600 mg PO Q12-24H 09/22/22 05/29/23 extended release 12 hr (Mucinex) insulin glargine 100 unit/mL (3 90 unit subcut BID 09/22/22 05/29/23 mL) subcutaneous pen (Basaglar KwikPen U-100 Insulin) magnesium hydroxide 400 mg/5 mL 30 ml PO DAILY PRN Constipation 09/22/22 05/29/23 oral suspension (Milk of Magnesia) metolazone 5 mg tablet 2.5 mg PO HS 09/22/22 05/29/23 potassium chloride 20 mEq 80 meq PO TID 09/22/22 05/29/23 tablet,extended release trazodone 50 mg tablet 50 mg PO HS Insomnia 09/22/22 05/29/23 ascorbic acid (vitamin C) 500 mg 500 mg PO BID 05/29/23 05/29/23 tablet atorvastatin 10 mg tablet 10 mg PO HS 05/29/23 05/29/23 diclofenac sodium 1 % topical gel 4 g topical DAILY 05/29/23 05/29/23 famotidine 20 mg tablet 20 mg PO DAILY 05/29/23 05/29/23 insulin aspart U-100 100 unit/mL See Rx Instructions .Route .COMPLEX 05/29/23 05/29/23 (3 mL) subcutaneous pen (Novolog FlexPen U-100 Insulin aspart) magnesium oxide 400 mg PO DAILY 05/29/23 05/29/23 melatonin 3 mg tablet 3 mg PO HS 05/29/23 05/29/23 menthol 0.44 %-zinc oxide 20.6 % 1 applic topical QAM AND QPM 05/29/23 05/29/23 topical ointment (Calmoseptine) polyethylene glycol 3350 17 gram 17 g PO DAILY PRN Constipation 05/29/23 05/29/23 oral powder packet (Miralax) semaglutide 0.25 mg or 0.5 mg (2 0.5 mg subcut WEEKLY 05/29/23 05/29/23 mg/3 mL) subcutaneous pen injector (Ozempic) Allergies Allergy/AdvReac Type Severity Reaction Status Date / Time Penicillins AdvReac Unknown Fever Verified 05/29/23 02:07 Review of Systems Review of Systems: CONSTITUTIONAL: Denies fever GASTROINTESTINAL: Denies vomiting MUSCULOSKELETAL: Reports joint pain and myalgia. Denies back pain NEUROLOGIC: Denies numbness, or weakness. All systems reviewed & are unremarkable except as noted in HPI and below PMFSH Past Medical History Medical History Chronic anemia Chronic stasis dermatitis Coronary artery disease Depression with anxiety History of deep venous thrombosis Hypertension Insulin dependent type 2 diabetes mellitus Hemoglobin A1c 9.2 Obstructive sleep apnea Noncompliant with CPAP. Peripheral vascular disease Ventral hernia Chronic large left lower quadrant
== END 2023-06-04 03:11 ==
PROVIDERS: Emergency Provider Physician Assistant
DX: S40.011A Contusion of right shoulder, initial encounter (principal); S89.91XA Unspecified injury of right lower leg, initial encounter; I10 Essential (primary) hypertension; I87.2 Venous insufficiency (chronic) (peripheral); I25.10 Atherosclerotic heart disease of native coronary artery without angina pectoris; E11.51 Type 2 diabetes mellitus with diabetic peripheral angiopathy without gangrene; I73.9 Peripheral vascular disease, unspecified; D64.9 Anemia, unspecified; G47.33 Obstructive sleep apnea (adult) (pediatric); F41.8 Other specified anxiety disorders; Z79.85 Long-term (current) use of injectable non-insulin antidiabetic drugs; Z79.4 Long term (current) use of insulin; Z79.84 Long term (current) use of oral hypoglycemic drugs; Z89.512 Acquired absence of left leg below knee; W06.XXXA Fall from bed, initial encounter
CPT/HCPCS: 73030; 73560; 99284

== ENCOUNTER 2023-06-06 19:51 | Emergency (ER) | payer OTHER, SELFPAY ==
--- NOTE | ~2023-06-06 | XR_ITS ---
EXAMINATION: XR shoulder RT min 2V DATE: 06/07/2023 00:34 INDICATION: Right shoulder pain. Fall. TECHNIQUE: 4 views of right shoulder were obtained. COMPARISON: Right shoulder radiographs 06/03/2023 FINDINGS: There are likely changes of distal resection of the clavicle. No fracture. There is mild os teoarthritis of glenohumeral joint. IMPRESSION: 1. Mild osteoarthritis of glenohumeral joint. Reviewed, dictated and finalized at location A.
--- NOTE | ~2023-06-06 | XR_ITS ---
EXAMINATION: XR elbow RT min 3V DATE: 06/07/2023 00:34 INDICATION: Right elbow pain. Fall. TECHNIQUE: 3 views of right elbow were obtained. COMPARISON: Right elbow radiographs 05/04/2023 FINDINGS: Bone alignment is normal. No fracture. There is mild osteoarthritis of the elbow joint. The re are enthesophytes at medial and lateral humeral epicondyles. No elbow joint effusion. IMPRESSION: 1. Mild elbow joint osteoarthritis. Reviewed, dictated and finalized at location A.
[2023-06-06 20:08] VITALS: BP 104/53; PULSE 94; RESP 20; TEMP 36.6; O2SAT 97
[2023-06-06] MEDS: HYDROcodone/acetaminophen (*CRX) 5-325 MG TABLET 1 TAB (23:27)
--- NOTE | 2023-06-07 01:25 | ED.GENADULT ---
HPI - General Adult General Chief complaint: Extremity Injury, Upper Stated complaint: SEIZURE ACTIVITY Time Seen by Provider: 06/06/23 20:04 History of Present Illness HPI narrative: this 59-year-old male is well known to our emergency department for frequent falls. Patient said that he rolled over in bed and continued to roll fell landed on his right shoulder and elbow. Denies any other complaints this time. He has been able to move the shoulder and elbow without difficulty. Related Data Home Medications Medication Instructions Recorded Confirmed acetaminophen 500 mg tablet 500 mg PO Q6H PRN Pain 11/14/19 05/29/23 (Acetaminophen Extra Strength) ergocalciferol (vitamin D2) 1,250 50,000 unit PO WEEKLY 11/14/19 05/29/23 mcg (50,000 unit) capsule (Vitamin D2) escitalopram oxalate 10 mg tablet 10 mg PO DAILY 11/14/19 05/29/23 escitalopram oxalate 5 mg tablet 5 mg PO DAILY 11/14/19 05/29/23 multivit,tx with iron 27 1 tablet PO DAILY 11/14/19 05/29/23 gb-vrpqkyb-riufd acid 0.4 mg-minerals tablet (Therapeutic-M Vitamin/Minerals) sennosides 8.6 mg-docusate sodium 1 tab-cap PO DAILY 04/14/20 05/29/23 50 mg tablet (Senexon-S) sodium chloride 0.65 % nasal spray 1 spray intranasal Q4H PRN Nasal 04/15/20 05/29/23 aerosol (Saline Nasal Mist) Congestion buspirone 5 mg tablet 5 mg PO DAILY 03/03/21 05/29/23 bupropion HCl 150 mg 24 hr tablet, 150 mg PO DAILY 05/16/21 05/29/23 extended release (Wellbutrin XL) furosemide 80 mg tablet 80 mg PO BID 09/22/22 05/29/23 glipizide 10 mg tablet 20 mg PO BID 09/22/22 05/29/23 guaifenesin 600 mg tablet, 600 mg PO Q12-24H 09/22/22 05/29/23 extended release 12 hr (Mucinex) insulin glargine 100 unit/mL (3 90 unit subcut BID 09/22/22 05/29/23 mL) subcutaneous pen (Basaglar WestleyPen U-100 Insulin) magnesium hydroxide 400 mg/5 mL 30 ml PO DAILY PRN Constipation 09/22/22 05/29/23 oral suspension (Milk of Magnesia) metolazone 5 mg tablet 2.5 mg PO HS 09/22/22 05/29/23 potassium chloride 20 mEq 80 meq PO TID 09/22/22 05/29/23 tablet,extended release trazodone 50 mg tablet 50 mg PO HS Insomnia 09/22/22 05/29/23 ascorbic acid (vitamin C) 500 mg 500 mg PO BID 05/29/23 05/29/23 tablet atorvastatin 10 mg tablet 10 mg PO HS 05/29/23 05/29/23 diclofenac sodium 1 % topical gel 4 g topical DAILY 05/29/23 05/29/23 famotidine 20 mg tablet 20 mg PO DAILY 05/29/23 05/29/23 insulin aspart U-100 100 unit/mL See Rx Instructions .Route .COMPLEX 05/29/23 05/29/23 (3 mL) subcutaneous pen (Novolog FlexPen U-100 Insulin aspart) magnesium oxide 400 mg PO DAILY 05/29/23 05/29/23 melatonin 3 mg tablet 3 mg PO HS 05/29/23 05/29/23 menthol 0.44 %-zinc oxide 20.6 % 1 applic topical QAM AND QPM 05/29/23 05/29/23 topical ointment (Calmoseptine) polyethylene glycol 3350 17 gram 17 g PO DAILY PRN Constipation 05/29/23 05/29/23 oral powder packet (Miralax) semaglutide 0.25 mg or 0.5 mg (2 0.5 mg subcut WEEKLY 05/29/23 05/29/23 mg/3 mL) subcutaneous pen injector (Ozempic) Allergies Allergy/AdvReac Type Severity Reaction Status Date / Time Penicillins AdvReac Unknown Fever Verified 06/06/23 20:19 [facility] Past Medical History Medical History Chronic anemia Chronic stasis dermatitis Coronary artery disease Depression with anxiety History of deep venous thrombosis Hypertension Insulin dependent type 2 diabetes mellitus Hemoglobin A1c 9.2 Obstructive sleep apnea Noncompliant with CPAP. Peripheral vascular disease Ventral hernia Chronic large left lower quadrant ventral hernia Surgical History Surgical History History of tonsillectomy Status post below-knee amputation of left lower extremity Status post herniorrhaphy Ventral hernia repair x3. Family History Family History Father , at age 69 Diabetes
[2023-06-07 03:09] VITALS: BP 112/64; PULSE 88; RESP 15; O2SAT 98
== END 2023-06-07 03:10 ==
PROVIDERS: Emergency Provider Emergency Medicine
DX: S49.91XA Unspecified injury of right shoulder and upper arm, initial encounter (principal); S59.901A Unspecified injury of right elbow, initial encounter; R29.6 Repeated falls; I87.2 Venous insufficiency (chronic) (peripheral); I25.10 Atherosclerotic heart disease of native coronary artery without angina pectoris; E11.51 Type 2 diabetes mellitus with diabetic peripheral angiopathy without gangrene; D64.9 Anemia, unspecified; G47.33 Obstructive sleep apnea (adult) (pediatric); F41.8 Other specified anxiety disorders; Z86.718 Personal history of other venous thrombosis and embolism; Z89.512 Acquired absence of left leg below knee; Z79.85 Long-term (current) use of injectable non-insulin antidiabetic drugs; Z79.84 Long term (current) use of oral hypoglycemic drugs; Z79.4 Long term (current) use of insulin; M19.021 Primary osteoarthritis, right elbow; M19.011 Primary osteoarthritis, right shoulder; W06.XXXA Fall from bed, initial encounter
CPT/HCPCS: 73030; 73080; 99284; A9270

== ENCOUNTER 2023-06-16 19:59 | Emergency (ER) | payer OTHER, SELFPAY ==
--- NOTE | ~2023-06-16 | CT_ITS ---
EXAMINATION: CT brain wo con DATE: 06/16/2023 20:49 INDICATION: Head injury. TECHNIQUE: Computed tomography (CT) of the head was performed without intravenous contrast. The mA wa s adjusted according to patient size. Iterative reconstruction technique was employed. The dose-lengt h product was 756.67 mGy-cm. COMPARISON: Head CT 05/12/2023 FINDINGS: There is no intracranial hemorrhage, acute infarction, or abnormal intracranial mass lesion . The ventricles are normal in size. The orbits are normal. There are small bilateral mastoid effusio ns. The paranasal sinuses are clear. IMPRESSION: 1. Normal brain. Reviewed, dictated and finalized at location E. IMPRESSION: 1. Normal brain.
--- NOTE | ~2023-06-16 | XR_ITS ---
EXAMINATION: XR shoulder RT min 2V DATE: 06/16/2023 20:59 INDICATION: Right shoulder pain. Fall. TECHNIQUE: 2 views of right shoulder were obtained. COMPARISON: Right shoulder radiograph 06/06/2023 FINDINGS: There are likely changes of distal clavicle resection. Bone alignment is normal. No fractur e. The glenohumeral joint is not well profiled. There are changes of anterior fusion procedure in cer vical spine. IMPRESSION: 1. No fracture. Reviewed, dictated and finalized at location E. IMPRESSION: 1. No fracture.
--- NOTE | ~2023-06-16 | XR_ITS ---
EXAMINATION: XR ankle RT min 3V DATE: 06/16/2023 20:59 INDICATION: Right ankle pain. Fall. TECHNIQUE: 3 views of right ankle were obtained. COMPARISON: Right foot radiographs 05/03/2021 FINDINGS: There is an old healed fracture of distal fibular diaphysis. There is an old healed fractur e of distal tibia. There is heterotopic ossification distal to medial malleolus. No fracture. There i s moderate to severe osteoarthritis of the ankle joint and moderate osteoarthritis of some of the mid foot joints. There are enthesophytes at the posterior and plantar aspects of calcaneal tuberosity. Th ere is ankle soft tissue swelling. IMPRESSION: 1. Polyarticular osteoarthritis. Reviewed, dictated and finalized at location E.
--- NOTE | ~2023-06-16 | XR_ITS ---
EXAMINATION: [id number] DATE: 06/16/2023 20:59 INDICATION: Right knee pain. Fall. TECHNIQUE: 2 views of right knee were obtained. COMPARISON: Right knee radiographs 06/03/2023 FINDINGS: Bone alignment is normal. No fracture. There is mild tricompartmental osteoarthritis. No kn ee joint effusion. IMPRESSION: 1. Mild right knee osteoarthritis. Reviewed, dictated and finalized at location E.
--- NOTE | ~2023-06-16 | XR_ITS ---
EXAMINATION: XR elbow RT 2V DATE: 06/16/2023 20:59 INDICATION: Right elbow pain. Fall. TECHNIQUE: 2 views of right elbow were obtained. COMPARISON: Right elbow radiographs 06/06/2023 FINDINGS: Bone alignment is normal. No fracture. There is mild elbow joint osteoarthritis. No elbow j oint effusion. IMPRESSION: 1. Mild right elbow joint osteoarthritis. Reviewed, dictated and finalized at location E.
[2023-06-16 20:16] VITALS: BP 105/45; PULSE 87; RESP 16; TEMP 36.2; O2SAT 96
--- NOTE | 2023-06-16 21:44 | ED.GENADULT ---
HPI - General Adult General Chief complaint: Fall Stated complaint: fall Time Seen by Provider: 06/16/23 20:12 History of Present Illness HPI narrative: Patient 67-year-old gentleman who presents emergency department chief complaint of fall from his bed patient reports that he rolled out of his bed on a mat on the floor the patient reports the pain is right shoulder right elbow right knee and right ankle. Patient reports no loss of consciousness Related Data Home Medications Medication Instructions Recorded Confirmed acetaminophen 500 mg tablet 500 mg PO Q6H PRN Pain 11/14/19 05/29/23 (Acetaminophen Extra Strength) ergocalciferol (vitamin D2) 1,250 50,000 unit PO WEEKLY 11/14/19 05/29/23 mcg (50,000 unit) capsule (Vitamin D2) escitalopram oxalate 10 mg tablet 10 mg PO DAILY 11/14/19 05/29/23 escitalopram oxalate 5 mg tablet 5 mg PO DAILY 11/14/19 05/29/23 multivit,tx with iron 27 1 tablet PO DAILY 11/14/19 05/29/23 ew-xunjrht-zofsi acid 0.4 mg-minerals tablet (Therapeutic-M Vitamin/Minerals) sennosides 8.6 mg-docusate sodium 1 tab-cap PO DAILY 04/14/20 05/29/23 50 mg tablet (Senexon-S) sodium chloride 0.65 % nasal spray 1 spray intranasal Q4H PRN Nasal 04/15/20 05/29/23 aerosol (Saline Nasal Mist) Congestion buspirone 5 mg tablet 5 mg PO DAILY 03/03/21 05/29/23 bupropion HCl 150 mg 24 hr tablet, 150 mg PO DAILY 05/16/21 05/29/23 extended release (Wellbutrin XL) furosemide 80 mg tablet 80 mg PO BID 09/22/22 05/29/23 glipizide 10 mg tablet 20 mg PO BID 09/22/22 05/29/23 guaifenesin 600 mg tablet, 600 mg PO Q12-24H 09/22/22 05/29/23 extended release 12 hr (Mucinex) insulin glargine 100 unit/mL (3 90 unit subcut BID 09/22/22 05/29/23 mL) subcutaneous pen (Basaglar KwikPen U-100 Insulin) magnesium hydroxide 400 mg/5 mL 30 ml PO DAILY PRN Constipation 09/22/22 05/29/23 oral suspension (Milk of Magnesia) metolazone 5 mg tablet 2.5 mg PO HS 09/22/22 05/29/23 potassium chloride 20 mEq 80 meq PO TID 09/22/22 05/29/23 tablet,extended release trazodone 50 mg tablet 50 mg PO HS Insomnia 09/22/22 05/29/23 ascorbic acid (vitamin C) 500 mg 500 mg PO BID 05/29/23 05/29/23 tablet atorvastatin 10 mg tablet 10 mg PO HS 05/29/23 05/29/23 diclofenac sodium 1 % topical gel 4 g topical DAILY 05/29/23 05/29/23 famotidine 20 mg tablet 20 mg PO DAILY 05/29/23 05/29/23 insulin aspart U-100 100 unit/mL See Rx Instructions .Route .COMPLEX 05/29/23 05/29/23 (3 mL) subcutaneous pen (Novolog FlexPen U-100 Insulin aspart) magnesium oxide 400 mg PO DAILY 05/29/23 05/29/23 melatonin 3 mg tablet 3 mg PO HS 05/29/23 05/29/23 menthol 0.44 %-zinc oxide 20.6 % 1 applic topical QAM AND QPM 05/29/23 05/29/23 topical ointment (Calmoseptine) polyethylene glycol 3350 17 gram 17 g PO DAILY PRN Constipation 05/29/23 05/29/23 oral powder packet (Miralax) semaglutide 0.25 mg or 0.5 mg (2 0.5 mg subcut WEEKLY 05/29/23 05/29/23 mg/3 mL) subcutaneous pen injector (Ozempic) Allergies Allergy/AdvReac Type Severity Reaction Status Date / Time Penicillins AdvReac Unknown Fever Verified 06/06/23 20:19 Review of Systems Review of Systems: A 10 system review of systems was completed on the patient and is negative except for what is stated in the HPI. Nursing and ancillary documentation was reviewed. [facility] Past Medical History Medical History Chronic anemia Chronic stasis dermatitis Coronary artery disease Depression with anxiety History of deep venous thrombosis Hypertension Insulin dependent type 2 diabetes mellitus Hemoglobin A1c 9.2 Obstructive sleep apnea Noncompliant with CPAP. Peripheral vascular disease Ventral hernia Chronic large left lower quadrant ventral hernia Surgical History Surgical History History of tonsillectomy Status post below-knee amputation of left lower
== END 2023-06-17 00:20 ==
PROVIDERS: Emergency Provider Emergency Medicine
DX: S49.91XA Unspecified injury of right shoulder and upper arm, initial encounter (principal); S59.901A Unspecified injury of right elbow, initial encounter; S89.91XA Unspecified injury of right lower leg, initial encounter; S99.911A Unspecified injury of right ankle, initial encounter; I25.10 Atherosclerotic heart disease of native coronary artery without angina pectoris; E11.51 Type 2 diabetes mellitus with diabetic peripheral angiopathy without gangrene; I73.9 Peripheral vascular disease, unspecified; D64.9 Anemia, unspecified; G47.33 Obstructive sleep apnea (adult) (pediatric); F41.8 Other specified anxiety disorders; Z86.718 Personal history of other venous thrombosis and embolism; Z89.512 Acquired absence of left leg below knee; Z79.4 Long term (current) use of insulin; Z79.85 Long-term (current) use of injectable non-insulin antidiabetic drugs; Z79.84 Long term (current) use of oral hypoglycemic drugs; W06.XXXA Fall from bed, initial encounter
CPT/HCPCS: 70450; 73030; 73070; 73560; 73610; 99284

== ENCOUNTER 2023-06-23 04:33 | Emergency (ER) | payer OTHER, SELFPAY ==
--- NOTE | ~2023-06-23 | XR_ITS ---
Right Knee Technique: AP, lateral, and sunrise views were obtained. Clinical History: Status post fall Findings: No fracture or dislocation is seen. Osseous alignment is anatomic. Minimal degenerative spu rring noted about the knee. Subcutaneous soft tissue edema noted. No joint effusion is seen. Impression: No fracture or dislocation. Minimal degenerative spurring. Subcutaneous soft tissue edema. Reviewed, dictated and finalized at location . Impression: No fracture or dislocation. Minimal degenerative spurring. Subcutaneous soft tissue edema.
[2023-06-23 04:34] VITALS: BP 153/70; PULSE 96; TEMP 36.6; O2SAT 93
[2023-06-23 07:05] VITALS: BP 151/79; PULSE 90; RESP 16; O2SAT 97
--- NOTE | 2023-06-23 07:23 | ED.FALL ---
HPI - Fall General Chief Complaint: Fall Stated Complaint: knee pain Time Seen by Provider: 06/23/23 07:23 Source: patient and EMS Mode of arrival: EMS Limitations: no limitations History of Present Illness HPI Narrative: 67 years old white male fell out of bed at 3 AM, landed on the right knee. He denies any other injuries including head. History of left below-knee amputation. He denies any fever, chills, nausea, vomiting. Related Data Home Medications Medication Instructions Recorded Confirmed acetaminophen 500 mg tablet 500 mg PO Q6H PRN Pain 11/14/19 05/29/23 (Acetaminophen Extra Strength) ergocalciferol (vitamin D2) 1,250 50,000 unit PO WEEKLY 11/14/19 05/29/23 mcg (50,000 unit) capsule (Vitamin D2) escitalopram oxalate 10 mg tablet 10 mg PO DAILY 11/14/19 05/29/23 escitalopram oxalate 5 mg tablet 5 mg PO DAILY 11/14/19 05/29/23 multivit,tx with iron 27 1 tablet PO DAILY 11/14/19 05/29/23 vq-aotyosl-ulqvb acid 0.4 mg-minerals tablet (Therapeutic-M Vitamin/Minerals) sennosides 8.6 mg-docusate sodium 1 tab-cap PO DAILY 04/14/20 05/29/23 50 mg tablet (Senexon-S) sodium chloride 0.65 % nasal spray 1 spray intranasal Q4H PRN Nasal 04/15/20 05/29/23 aerosol (Saline Nasal Mist) Congestion buspirone 5 mg tablet 5 mg PO DAILY 03/03/21 05/29/23 bupropion HCl 150 mg 24 hr tablet, 150 mg PO DAILY 05/16/21 05/29/23 extended release (Wellbutrin XL) furosemide 80 mg tablet 80 mg PO BID 09/22/22 05/29/23 glipizide 10 mg tablet 20 mg PO BID 09/22/22 05/29/23 guaifenesin 600 mg tablet, 600 mg PO Q12-24H 09/22/22 05/29/23 extended release 12 hr (Mucinex) insulin glargine 100 unit/mL (3 90 unit subcut BID 09/22/22 05/29/23 mL) subcutaneous pen (Basaglar WestleyPen U-100 Insulin) magnesium hydroxide 400 mg/5 mL 30 ml PO DAILY PRN Constipation 09/22/22 05/29/23 oral suspension (Milk of Magnesia) metolazone 5 mg tablet 2.5 mg PO HS 09/22/22 05/29/23 potassium chloride 20 mEq 80 meq PO TID 09/22/22 05/29/23 tablet,extended release trazodone 50 mg tablet 50 mg PO HS Insomnia 09/22/22 05/29/23 ascorbic acid (vitamin C) 500 mg 500 mg PO BID 05/29/23 05/29/23 tablet atorvastatin 10 mg tablet 10 mg PO HS 05/29/23 05/29/23 diclofenac sodium 1 % topical gel 4 g topical DAILY 05/29/23 05/29/23 famotidine 20 mg tablet 20 mg PO DAILY 05/29/23 05/29/23 insulin aspart U-100 100 unit/mL See Rx Instructions .Route .COMPLEX 05/29/23 05/29/23 (3 mL) subcutaneous pen (Novolog FlexPen U-100 Insulin aspart) magnesium oxide 400 mg PO DAILY 05/29/23 05/29/23 melatonin 3 mg tablet 3 mg PO HS 05/29/23 05/29/23 menthol 0.44 %-zinc oxide 20.6 % 1 applic topical QAM AND QPM 05/29/23 05/29/23 topical ointment (Calmoseptine) polyethylene glycol 3350 17 gram 17 g PO DAILY PRN Constipation 05/29/23 05/29/23 oral powder packet (Miralax) semaglutide 0.25 mg or 0.5 mg (2 0.5 mg subcut WEEKLY 05/29/23 05/29/23 mg/3 mL) subcutaneous pen injector (Ozempic) Allergies Allergy/AdvReac Type Severity Reaction Status Date / Time Penicillins AdvReac Unknown Fever Verified 06/23/23 04:39 Review of Systems Review of Systems: All systems reviewed & are unremarkable except as noted in HPI and below PMFSH Past Medical History Medical History Chronic anemia Chronic stasis dermatitis Coronary artery disease Depression with anxiety History of deep venous thrombosis Hypertension Insulin dependent type 2 diabetes mellitus Hemoglobin A1c 9.2 Obstructive sleep apnea Noncompliant with CPAP. Peripheral vascular disease Ventral hernia Chronic large left lower quadrant ventral hernia Surgical History Surgical History History of tonsillectomy Status post below-knee amputation of left lower extremity Status post herniorrhaphy Ventral hernia repair x3. Family History Family History (Reviewed 06/23/23 @ 08:18 by Whit Sa
[2023-06-23 09:42] VITALS: BP 152/80; PULSE 93; RESP 18; O2SAT 100
== END 2023-06-23 09:21 ==
PROVIDERS: Emergency Provider Emergency Medicine
DX: S80.01XA Contusion of right knee, initial encounter (principal); E11.9 Type 2 diabetes mellitus without complications; I10 Essential (primary) hypertension; I73.9 Peripheral vascular disease, unspecified; I25.10 Atherosclerotic heart disease of native coronary artery without angina pectoris; G47.33 Obstructive sleep apnea (adult) (pediatric); D64.9 Anemia, unspecified; Z86.718 Personal history of other venous thrombosis and embolism; Z89.512 Acquired absence of left leg below knee; Z79.84 Long term (current) use of oral hypoglycemic drugs; Z79.4 Long term (current) use of insulin; W06.XXXA Fall from bed, initial encounter
CPT/HCPCS: 73564; 99283

== ENCOUNTER 2024-11-23 11:45 | Emergency (ER) | payer OTHER, SELFPAY ==
[2024-11-23] VITALS (42 sets, daily range): BP systolic 79–144; BP diastolic 52–81; PULSE 92–110; RESP 15–42; TEMP 36.5; O2SAT 91–100
--- NOTE | ~2024-11-23 | CT_ITS ---
EXAMINATION: CT abdomen pelvis w con DATE: 11/23/2024 14:55 INDICATION: Left lower quadrant hernia TECHNIQUE: Computed tomography (CT) of the abdomen and pelvis was performed with 100 mL Omnipaque-350 intravenous contrast. Automated exposure control and iterative reconstruction technique were employe d. The dose-length product was 1889.73 mGy-cm. COMPARISON: 03/03/2021 FINDINGS: Mild linear discoid atelectasis in the bilateral lower lobes. There is some mucous plugging and tree- in-bud opacities in the bilateral lower lobes and right middle lobe consistent with likely pneumonia with endobronchial spread of disease. Heart size is normal. Atherosclerotic coronary artery calcifica tion is. No pericardial or pleural effusion. A couple small hepatic calcifications consistent with ol d granulomatous disease. Gallbladder, spleen, pancreas, bilateral adrenal glands and kidneys are norm al. There are postoperative changes along the anterior abdominal wall with a couple anastomotic sutur e lines along couple segments of small bowel in the anterior lower abdomen. There are chronic calcifi cations at the periphery of a chronic thin lenticular 9 x 5.4 x 1 cm seroma along the anterior abdomi nal wall. More caudally there is a large ventral hernia extending to the left of the midline infraumb ilical surgical scar and which contains the transverse colon and a loop of small bowel. This appears unchanged since the prior study. No bowel obstruction. Normal appendix. Bladder is normal. There is a small fat-containing indirect left inguinal hernia. No free intraperitoneal gas or fluid. No patholo gically enlarged abdominal or pelvic lymphadenopathy. Mild lumbar and lower thoracic spondylosis with bridging osteophytes at multiple levels consistent with diffuse idiopathic skeletal hyperostosis (DI SH). IMPRESSION: 1. No interval change in a large left lower quadrant ventral hernia containing nonobstructed large an d small bowel. 2. Mucous plugging and tree-in-bud opacities in the bilateral lower lobes and right middle lobe consi stent with endobronchial spread of disease such as pneumonia or aspiration. 3. Small fat-containing left inguinal hernia. Reviewed, dictated and finalized at location B. R MANAGER IMPRESSION: 1. No interval change in a large left lower quadrant ventral hernia containing nonobstructed large and small bowel. 2. Mucous plugging and tree-in-bud opacities in the bilateral lower lobes and r ight middle lobe consistent with endobronchial spread of disease such as pneumo radha or aspiration. 3. Small fat-containing left inguinal hernia.
--- NOTE | 2024-11-23 13:52 | ED.ABDPAIN ---
HPI - Abdominal Pain General Chief Complaint: Abdominal Pain <Dionne Randhawa PA-C - Last Filed: 11/23/24 13:55> Stated Complaint: abd pain <Dionne Randhawa PA-C - Last Filed: 11/23/24 13:55> Time Seen by Provider: 11/23/24 15:42 <Dionne Randhawa PA-C - Last Filed: 11/23/24 13:55> Focused HPI: 69 y/o M presents to the emergency department for pain to his left lower quadrant in hernia. Patient states he is at hernia to the left lower quadrant for quite a while but is been steadily increasing in size over the past year. States he began vomiting yesterday and started having pain to the hernia today. He states his last bowel movement was yesterday normal but he has not been able to pass gas today. He does have a history of hernia repairs when he was in his 30s [address] Prince. No dysuria or hematuria. Patient also states he had an episode of hemoptysis yesterday. States the blood was bright red and filled a Pap in epic in. He has not had any since. He denies history of liver disease, cirrhosis, ETOH use. He is not anticoagulated. GENERAL: Well-appearing, well-nourished, and in no acute distress. HEAD: Normocephalic, atraumatic. CHEST: Clear to auscultation. ?No respiratory distress. ABD: Very large left lower quadrant ventral hernia, diffusely tender to palpation, not easily reduced. Quiet bowel sounds throughout. Well-healed surgical scars, otherwise no overlying skin changes HEART: Regular rate and rhythm.? NEURO: ?Alert and oriented x3. Patient screened in triage and initial orders placed.? ?Additional care and disposition to be based upon?diagnostic testing and treatment. <Dionne Randhawa PA-C - Last Filed: 11/23/24 13:55> Focused HPI: 69 y/o M presents to the emergency department for pain to his left lower quadrant in hernia. Patient states he is at hernia to the left lower quadrant for quite a while but is been steadily increasing in size over the past year. States he began vomiting yesterday and started having pain to the hernia today. He states his last bowel movement was yesterday normal but he has not been able to pass gas today. He does have a history of hernia repairs when he was in his 30s [address] Prince. No dysuria or hematuria. No longer having any vomiting, noticed some flecks of what might have been blood when he did yesterday, but he has not had any since. He denies history of liver disease, cirrhosis, ETOH use. He is not anticoagulated. GENERAL: Well-appearing, well-nourished, and in no acute distress. HEAD: Normocephalic, atraumatic. CHEST: Clear to auscultation. ?No respiratory distress. ABD: Very large left lower quadrant ventral hernia, not tender to palpation, not easily reduced. Quiet bowel sounds throughout. Well-healed surgical scars, otherwise no overlying skin changes HEART: Regular rate and rhythm.? NEURO: ?Alert and oriented x3. Patient screened in triage and initial orders placed.? ?Additional care and disposition to be based upon?diagnostic testing and treatment. <Ignacio Morales MD - Last Filed: 11/23/24 20:05> History of Present Illness HPI narrative: agree with the HPI above. <Ignacio Morales MD - Last Filed: 11/23/24 20:05> Related Data Home Medications: Home Medications ?Medication ?Instructions ?Recorded ?Confirmed ?Last Taken ?Type acetaminophen 500 mg tablet 500 mg PO Q6H PRN Pain 11/14/19 05/29/23 Unknown History (Acetaminophen Extra Strength) ergocalciferol (vitamin D2) 1,250 50,000 unit PO WEEKLY 11/14/19 05/29/23 03/02/21 History mcg (50,000 unit) capsule (Vitamin D2) escitalopram oxalate 10 mg tablet 10 mg PO DAILY 11/14/19 11/23/24 Unknown History escitalopram oxalate 5 mg tablet 5 mg PO DAILY 11/14/19 11/23/24 Unknown History multivit,tx with iron 27 1 tablet PO DAILY 11/14/19 05/29/23 Unknown History [id number] acid 0.4 mg-minerals tablet (Therapeutic-M Vitamin/Minerals) sennosides 8.6 mg-docusate sodium 1 tab-cap PO DAILY 04/14/20 11/23/24 Unknown History 50 mg tablet (Senexon-S) sodium chloride 0.65 % nasal spray 1 spray intranasal Q4H PRN Nasal 04/15/20 05/29/23 Unknown History aerosol (Saline Nasal Mist) Congestion buspirone 5 mg tablet 5 mg PO DAILY 03/03/21 05/29/23 Unknown History bupropion HCl 150 mg 24 hr tablet, 150 mg PO DAILY 05/16/21 05/29/23 Unknown History extended release (Wellbutrin XL) furosemide 80 mg tablet 80 mg PO BID 09/22/22 05/29/23 Unknown History glipizide 10 mg tablet 20 mg PO BID 09/22/22 11/23/24 Unknown History guaifenesin 600 mg tablet, 600 mg PO Q12-24H 09/22/22 05/29/23 Unknown History extended release 12 hr (Mucinex) insulin glargine 100 unit/mL (3 90 unit subcut BID 09/22/22 05/29/23 Unknown History mL) subcutaneous pen (Basaglar KwikPen U-100 Insulin) magnesium hydroxide 400 mg/5 mL 30 ml PO DAILY PRN Constipation 09/22/22 05/29/23 Unknown History oral suspension (Milk of Magnesia) metolazone 5 mg tablet 2.5 mg PO HS 09/22/22 05/29/23 Unknown History potassium chloride 20 mEq 80 meq PO TID 09/22/22 05/29/23 Unknown History tablet,extended release trazodone 50 mg tablet 50 mg PO HS Insomnia 09/22/22 05/29/23 Unknown History ascorbic acid (vitamin C) 500 mg 500 mg PO BID 05/29/23 05/29/23 Unknown History tablet atorvastatin 10 mg tablet 10 mg PO HS 05/29/23 05/29/23 Unknown History diclofenac sodium 1 % topical gel 4 g topical DAILY 05/29/23 05/29/23 Unknown History famotidine 20 mg tablet 20 mg PO DAILY 05/29/23 11/23/24 Unknown History insulin aspart U-100 100 unit/mL See Rx Instructions .Route .COMPLEX 05/29/23 05/29/23 Unknown History (3 mL) subcutaneous pen (Novolog FlexPen U-100 Insulin aspart) magnesium oxide 400 mg PO DAILY 05/29/23 11/23/24 Unknown History melatonin 3 mg tablet 3 mg PO HS 05/29/23 05/29/23 Unknown History menthol 0.44 %-zinc oxide 20.6 % 1 applic topical QAM AND QPM 05/29/23 05/29/23 Unknown History topical ointment (Calmoseptine) polyethylene glycol 3350 17 gram 17 g PO DAILY PRN Constipation 05/29/23 05/29/23 Unknown History oral powder packet (Miralax) semaglutide 0.25 mg or 0.5 mg (2 0.5 mg subcut WEEKLY 05/29/23 05/29/23 Unknown History mg/3 mL) subcutaneous pen injector (Ozempic) <Dionne Randhawa PA-C - Last Filed: 11/23/24 13:55> Allergies/Adverse Reactions: Allergies Allergy/AdvReac Type Severity Reaction Status Date / Time Penicillins AdvReac Unknown Fever Verified 11/23/24 15:34 <Dionne Randhawa PA-C - Last Filed: 11/23/24 13:55> Review of Systems Review of Systems: As reviewed above in HPI <Ignacio Morales MD - Last Filed: 11/23/24 20:05> [facility] Past Medical History Medical History: Medical History Depression with anxiety Chronic stasis dermatitis Obstructive sleep apnea Noncompliant with CPAP. History of deep venous thrombosis Coronary artery disease Ventral hernia Chronic large left lower quadrant ventral hernia Chronic anemia Insulin dependent type 2 diabetes mellitus Hemoglobin A1c 9.2 Peripheral vascular disease Hypertension <Dionne Randhawa PA-C - Last Filed: 11/23/24 13:55> Surgical History Surgical History: Surgical History History of tonsillectomy Status post herniorrhaphy Ventral hernia repair x3. Status post below-knee amputation of left lower extremity <Dionne Randhawa PA-C - Last Filed: 11/23/24 13:55> Family History Family History: Family History Father , at age 69 Diabetes mellitus Family history of alcoholism Mother Diabetes mellitus Sibling Family history of emphysema <Dionne Randhawa PA-C - Last Filed: 11/23/24 13:55> Social History Social History: Social History Social History: The patient has been at [facility] for several years. Before that he was living with his mother in [place]. He is on disability. He had 2 daughters, one at the age of 34 from an ID. He is a lifelong non-smoker. A former heavy drinker though he has abstained since moving to the rehab center. He denies illicit drug use. Patient wishes to be a full code. His [id number] is his mother, Nicolle Veloz. Smoking status: Never smoker Alcohol intake: never Drinks per week: 50 Substance use: never Lack of Transportation: No Lack of Food: Never True Current Housing: I Have Housing Concerned About Future Housing: No Difficulty Paying Gas/Electric Bills: No Difficulty Paying for Meds: No Currently Unemployed: No Education: Grade School Difficulty w/ Childcare or Family Care: No Living arrangements: [facility] Gender identity (if verbalized by the patient): Male Spiritual care concerns: No <Dionne Randhawa PA-C - Last Filed: 11/23/24 13:55> Exam Narrative: GENERAL: Well-appearing, well-nourished, and in no acute distress. HEAD: Normocephalic, atraumatic. CHEST: Clear to auscultation. ?No respiratory distress. ABD: Very large left lower quadrant ventral hernia, not tender to palpation, not easily reduced. Quiet bowel sounds throughout. Well-healed surgical scars, otherwise no overlying skin changes HEART: Regular rate and rhythm.? NEURO: ?Alert and oriented x3. <Ignacio Morales MD - Last Filed: 11/23/24 20:05> Course Vital Signs Vital signs: Vital Signs Temperature 36.5 C 11/23/24 12:00 Pulse Rate 108 H 11/23/24 12:00 Respiratory Rate 18 11/23/24 12:00 Blood Pressure 126/81 11/23/24 12:00 Pulse Oximetry 97 11/23/24 12:00 Oxygen Delivery Room Air 11/23/24 12:00 Temperature 36.5 C 11/23/24 12:00 Pulse Rate 103 H 02/07/25 19:36 Respiratory Rate 25 H 11/23/24 19:36 Blood Pressure 109/60 11/23/24 18:02 Pulse Oximetry 97 11/23/24 19:36 Oxygen Delivery Room Air 11/23/24 12:00 <Dionne Randhawa PA-C - Last Filed: 11/23/24 13:55> Vital Signs Temperature 36.5 C 11/23/24 12:00 Pulse Rate 108 H 11/23/24 12:00 Respiratory Rate 18 11/23/24 12:00 Blood Pressure 126/81 11/23/24 12:00 Pulse Oximetry 97 11/23/24 12:00 Oxygen Delivery Room Air 11/23/24 12:00 Temperature 36.5 C 11/23/24 12:00 Pulse Rate 103 H 11/23/24 19:36 Respiratory Rate 25 H 11/23/24 19:36 Blood Pressure 109/60 11/23/24 18:02 Pulse Oximetry 97 11/23/24 19:36 Oxygen Delivery Room Air 11/23/24 12:00 <Ignacio Morales MD - Last Filed: 11/23/24 20:05> MDM - Abdominal Pain MDM Narrative Medical decision making narrative: 69-year-old male presenting to the emergency department with acute on chronic left lower quadrant abdominal pain. He states he has been having hernia that was previously repaired but having issues over last year. Came to the ER today as he vomited 1 time yesterday but has not been nauseous or vomiting since. Denies any urinary symptoms at all such as dysuria hematuria. Was otherwise in his nose state of health. He has normal vital signs aside from some mild tachycardia with a heart rate of 103 but no tachypnea, fever, hypoxia significant blood pressure elevation or hypotension. His abdomen is overall benign but does have a large ventral hernia in the left side, chronic appearing with a previous surgical scar that is well healed. Overall suspicion is low for acute intra-abdominal process however he does have a large hernia which raises risk factor for an obstructive process. Urinary tract infection is also possible given his age and risk factors. Workup was state including CBC, CMP, PT, PTT, urinalysis and lactic acid. CT scan with IV contrast was obtained. He was given Toradol lactated Ringer's and Zofran. In workup shows no leukocytosis or anemia. Normal platelet level. Normal coagulation studies. Electrolytes were largely unremarkable, normal renal function panel. Normal glucose and normal hepatic function panel. Negative lactic acid. Urinalysis shows a florid urinary tract infection. CT scan shows no interval change in his left lower quadrant ventral hernia which is large and nonobstructed. There appears to be some mucus in tree-in-bud opacifications in his lungs which could represent pneumonia or an aspiration event. Patient did vomit yesterday and this could be secondary to that as he has no respiratory complaints at this time or hypoxia or fever. We will cover his urinary tract infection and potential pneumonia simultaneously with a dose of Levaquin. Patient was re-evaluated frequently still having no acute complaints while here after treatment, clinically well-appearing. He was given IV Levaquin here to be sent home with a 5 day course for this. He has stable reassuring vitals, no concerning features on his workup at this time and will refer him to a general surgeon on outpatient basis for evaluation of interval repair of his large hernia that is not currently causing any obstruction. Patient comfortable with this plan of care and stable for discharge. <Ignacio Morales MD - Last Filed: 11/23/24 20:05> Medical Records Attestation: I reviewed the patient's medical records. <Ignacio Morales MD - Last Filed: 11/23/24 20:05> Lab Data Attestation: I reviewed the patient's lab results. <Ignacio Morales MD - Last Filed: 11/23/24 20:05> Result diagrams: 11/23/24 14:03 11/23/24 14:03 <Dionne Randhawa PA-C - Last Filed: 11/23/24 13:55> Labs: Lab Results 11/23/24 Range/Units 14:03 WBC 9.8 (4.5-10.0) K/mm3 RBC 4.36 L (4.6-6.20) M/mm3 Hgb 13.7 L D (14.0-18.0) g/dL Hct 42.9 (42.0-52.0) % MCV 98.4 (80-100) fl MCH 31.4 (26-34) pg MCHC 31.9 L (32-36) g/dl RDW 13.6 (11.5-14.5) % Plt Count 224 (150-375) k/mm3 MPV 8.7 (7.4-10.4) fl Immature Gran % (Auto) 0.9 H (0-0.5) % Neut % (Auto) 62.0 (45.5-73.1) % Lymph % (Auto) 23.3 (18.3-44.2) % [place] % (Auto) 10.8 H (2.6-8.5) % Eos % (Auto) 2.7 (0-4.4) % Baso % (Auto) 0.3 (0.2-1.2) % Lymph # (Auto) 2.28 (0.9-3.2) K/mm3 [place] # (Auto) 1.1 H (0.1-0.6) K/mm3 Eos # (Auto) 0.3 (0-0.3) K/mm3 Baso # (Auto) 0.0 (0.0-0.1) K/mm3 Abs Immat Gran (auto) 0.09 H (0.00-0.031) K/mm3 Absolute Neuts (auto) 6.1 (1.3-6.7) K/mm3 Absolute Nucleated RBC 0.000 (0.0-0.012) K/mm3 Nucleated RBC % 0.0 (0.0-0.2) % PT 13.7 (11.1-14.7) Seconds INR 1.0 APTT 27.1 (22.3-36.8) Seconds Sodium 137 (137-145) mmol/L Potassium 4.5 (3.4-5.0) mmol/L Chloride 97 L (98-107) mmol/L Carbon Dioxide 33 H (22-30) mmol/L Anion Gap 7 (4-12) mmol/L BUN 23 H (9-20) mg/dL Creatinine 1.23 (0.7-1.3) mg/dL Estim Creat Clear Calc Not Reportable Estimated GFR 58 L (59 - ) Glucose 136 H (65-110) mg/dL Lactic Acid 1.8 (0.7-2.0) mmol/L Calcium 9.5 (8.4-10.2) mg/dL Total Bilirubin 0.5 (0.2-1.3) mg/dL AST 20 (17-59) U/L ALT 16 (6-50) U/L Alkaline Phosphatase 106 (38-126) U/L Total Protein 8.0 (6.3-8.2) g/dL Albumin 4.0 (3.5-5.1) g/dL Urine Color Yellow (Yellow) Urine Appearance Cloudy H (Clear) Urine pH 6.5 (5.0-9.0) Ur Specific [place] 1.010 (1.001-1.035) Urine Protein Negative (Negative) mg/dL Urine Glucose (UA) Negative (Negative) mg/dL Urine Ketones Negative (Negative) mg/dL Ur Blood (Man) Negative (Negative) Urine Nitrate Positive H (Negative) Urine Bilirubin Negative (Negative) Urine Urobilinogen 0.2 (<2.0) mg/dL Add Ur Microanalysis Reviewed Leukocyte Esterase Rfl 3+ H (Negative) CHELLE/UL Urine RBC 0-2 (0-2) /hpf Urine WBC >100 H (0-3) /hpf Urine WBC Clumps Present H (None) /HPF Ur Squamous Epith Cells None seen (Few) /hpf Urine Bacteria 4+ H /hpf Urine Casts >20 Hyaline Casts Present (None) /lpf <Dionne Randhawa PA-C - Last Filed: 11/23/24 13:55> Lab Results 11/23/24 Range/Units 14:03 WBC 9.8 (4.5-10.0) K/mm3 RBC 4.36 L (4.6-6.20) M/mm3 Hgb 13.7 L D (14.0-18.0) g/dL Hct 42.9 (42.0-52.0) % MCV 98.4 (80-100) fl MCH 31.4 (26-34) pg MCHC 31.9 L (32-36) g/dl RDW 13.6 (11.5-14.5) % Plt Count 224 (150-375) k/mm3 MPV 8.7 (7.4-10.4) fl Immature Gran % (Auto) 0.9 H (0-0.5) % Neut % (Auto) 62.0 (45.5-73.1) % Lymph % (Auto) 23.3 (18.3-44.2) % [place] % (Auto) 10.8 H (2.6-8.5) % Eos % (Auto) 2.7 (0-4.4) % Baso % (Auto) 0.3 (0.2-1.2) % Lymph # (Auto) 2.28 (0.9-3.2) K/mm3 [place] # (Auto) 1.1 H (0.1-0.6) K/mm3 Eos # (Auto) 0.3 (0-0.3) K/mm3 Baso # (Auto) 0.0 (0.0-0.1) K/mm3 Abs Immat Gran (auto) 0.09 H (0.00-0.031) K/mm3 Absolute Neuts (auto) 6.1 (1.3-6.7) K/mm3 Absolute Nucleated RBC 0.000 (0.0-0.012) K/mm3 Nucleated RBC % 0.0 (0.0-0.2) % PT 13.7 (11.1-14.7) Seconds INR 1.0 APTT 27.1 (22.3-36.8) Seconds Sodium 137 (137-145) mmol/L Potassium 4.5 (3.4-5.0) mmol/L Chloride 97 L (98-107) mmol/L Carbon Dioxide 33 H (22-30) mmol/L Anion Gap 7 (4-12) mmol/L BUN 23 H (9-20) mg/dL Creatinine 1.23 (0.7-1.3) mg/dL Estim Creat Clear Calc Not Reportable Estimated GFR 58 L (59 - ) Glucose 136 H (65-110) mg/dL Lactic Acid 1.8 (0.7-2.0) mmol/L Calcium 9.5 (8.4-10.2) mg/dL Total Bilirubin 0.5 (0.2-1.3) mg/dL AST 20 (17-59) U/L ALT 16 (6-50) U/L Alkaline Phosphatase 106 (38-126) U/L Total Protein 8.0 (6.3-8.2) g/dL Albumin 4.0 (3.5-5.1) g/dL Urine Color Yellow (Yellow) Urine Appearance Cloudy H (Clear) Urine pH 6.5 (5.0-9.0) Ur Specific [place] 1.010 (1.001-1.035) Urine Protein Negative (Negative) mg/dL Urine Glucose (UA) Negative (Negative) mg/dL Urine Ketones Negative (Negative) mg/dL Ur Blood (Man) Negative (Negative) Urine Nitrate Positive H (Negative) Urine Bilirubin Negative (Negative) Urine Urobilinogen 0.2 (<2.0) mg/dL Add Ur Microanalysis Reviewed Leukocyte Esterase Rfl 3+ H (Negative) CHELLE/UL Urine RBC 0-2 (0-2) /hpf Urine WBC >100 H (0-3) /hpf Urine WBC Clumps Present H (None) /HPF Ur Squamous Epith Cells None seen (Few) /hpf Urine Bacteria 4+ H /hpf Urine Casts >20 Hyaline Casts Present (None) /lpf <Ignacio Morales MD - Last Filed: 11/23/24 20:05> Imaging Data Attestation: I personally reviewed and interpreted this imaging study as follows: <Ignacio Morales MD - Last Filed: 11/23/24 20:05> My impression: Impressions Abdomen/Pelvis CT 11/23/24 14:57 IMPRESSION: 1. No interval change in a large left lower quadrant ventral hernia containing nonobstructed large and small bowel. 2. Mucous plugging and tree-in-bud opacities in the bilateral lower lobes and right middle lobe consistent with endobronchial spread of disease such as pneumonia or aspiration. 3. Small fat-containing left inguinal hernia. <Ignacio Morales MD - Last Filed: 11/23/24 20:05> Radiologist's impression: ITS Impressions Abdomen/Pelvis CT 11/23/24 14:57 IMPRESSION: 1. No interval change in a large left lower quadrant ventral hernia containing nonobstructed large and small bowel. 2. Mucous plugging and tree-in-bud opacities in the bilateral lower lobes and right middle lobe consistent with endobronchial spread of disease such as pneumonia or aspiration. 3. Small fat-containing left inguinal hernia. <Dionne Randhawa PA-C - Last Filed: 11/23/24 13:55> ITS Impressions Abdomen/Pelvis CT 11/23/24 14:57 IMPRESSION: 1. No interval change in a large left lower quadrant ventral hernia containing nonobstructed large and small bowel. 2. Mucous plugging and tree-in-bud opacities in the bilateral lower lobes and right middle lobe consistent with endobronchial spread of disease such as pneumonia or aspiration. 3. Small fat-containing left inguinal hernia. <Ignacio Morales MD - Last Filed: 11/23/24 20:05> Discharge Plan Discharge Clinical Impression: Acute UTI, Abdominal pain, Ventral hernia without obstruction or gangrene, Aspiration pneumonia <ANURADHA Joseph Last Filed: 11/23/24 13:55> Patient Disposition: NH Halfway/Asst Living <Dionne Randhawa PA-C - Last Filed: 11/23/24 13:55> Condition: Stable <ANURADHA Joseph Last Filed: 11/23/24 13:55> Instructions: Antibiotic Form, Urinary Tract Infection in Men (ED), Aspiration Pneumonia (DC), Abdominal Pain (ED), Ventral Hernia (ED), Ventral Hernia Repair (DC) <Dionne Randhawa PA-C - Last Filed: 11/23/24 13:55> Additional Instructions: You have a urinary tract infection, your hernia is stable without any concerning findings such as an obstruction or infection in her abdomen. Will refer you to a general surgeon to address this outpatient in case that it would be amenable to operative repair. We vomited yesterday you potentially also had some go down your airway issue have evidence of potential aspiration or early pneumonia. we will prescribe you an antibiotic to take care of both the urine and potential in the lung infection. If you develop any worsening symptoms such as intractable pain, difficulty breathing, intractable nauseousness or any other concerns please return to the emergency department otherwise follow-up with regular doctor outpatient. <Dionne Randhawa PA-C - Last Filed: 11/23/24 13:55> Patient Language: Sammarinese <ANURADHA Joseph Last Filed: 11/23/24 13:55> Prescriptions: New dicyclomine 20 mg tablet 20 mg PO TID PRN (Reason: abdominal pain) Qty: 14 0RF ondansetron 4 mg tablet,disintegrating 4 mg PO Q8H PRN (Reason: nausea and vomiting) Qty: 10 0RF levofloxacin 750 mg tablet 750 mg PO DAILY 5 Days Qty: 5 0RF No Action acetaminophen [Acetaminophen Extra Strength] 500 mg Tablet 500 mg PO Q6H PRN (Reason: Pain) Therapeutic-M Vitamin/Minerals 27-0.4 mg Tablet 1 tablet PO DAILY escitalopram oxalate 10 mg tablet 10 mg PO DAILY Rx Instructions: take with 5mg tablet escitalopram oxalate 5 mg tablet 5 mg PO DAILY Rx Instructions: take with 10 mg tablet ergocalciferol (vitamin D2) [Vitamin D2] 1,250 mcg (50,000 unit) Capsule 50,000 unit PO WEEKLY Rx Instructions: pt takes on Tuesday sennosides-docusate sodium [Senexon-S] 8.6-50 mg Tablet 1 tab-cap PO DAILY Saline Nasal Mist 0.65 % Aerosol,[place] 1 spray INTRANASAL Q4H PRN (Reason: Nasal Congestion) buspirone 5 mg Tablet 5 mg PO DAILY mecobalamin (vitamin B12) 1,000 mcg tablet,disintegrating 1,000 mcg sublingual DAILY Qty: 30 0RF Rx Instructions: place tablet under tongue and allow to dissolve for at least30 secs before swallowing glipizide 10 mg Tablet 20 mg PO BID potassium chloride 20 mEq Tablet Extended Release 80 meq PO TID insulin glargine [Basaglar KwikPen U-100 Insulin] 100 unit/mL (3 mL) Insulin Pen 90 unit SUBCUT BID guaifenesin [Mucinex] 600 mg Tablet Extended Release 12hr 600 mg PO Q12-24H Rx Instructions: every 12 hours metolazone 5 mg Tablet 2.5 mg PO HS furosemide 80 mg Tablet 80 mg PO BID trazodone 50 mg Tablet 50 mg PO HS magnesium hydroxide [Milk of Magnesia] 400 mg/5 mL Suspension 30 ml PO DAILY PRN (Reason: Constipation) bupropion HCl [Wellbutrin XL] 150 mg Tablet Extended Release 24 Hr 150 mg PO DAILY hydrocodone-acetaminophen 5-325 mg tablet 1 tablet PO Q6H PRN (Reason: pain) 3 Days Qty: 12 0RF polyethylene glycol 3350 [Miralax] 17 gram Powder In Packet 17 g PO DAILY PRN (Reason: Constipation) atorvastatin 10 mg tablet 10 mg PO HS melatonin 3 mg Tablet 3 mg PO HS famotidine 20 mg tablet 20 mg PO DAILY ascorbic acid (vitamin C) 500 mg Tablet 500 mg PO BID insulin aspart U-100 [Novolog FlexPen U-100 Insulin] 100 unit/mL (3 mL) insulin pen See Rx Instructions .ROUTE .COMPLEX Rx Instructions: 56 units subQ in the AM, 65 units subQ at lunch, and 56 units subQ in the evening diclofenac sodium 1 % gel 4 g TOPICAL DAILY Rx Instructions: apply to right knee and right shoulder menthol-zinc oxide [Calmoseptine] 0.44-20.6 % Ointment 1 applic TOPICAL QAM AND QPM Rx Instructions: and as needed, apply to buttocks magnesium oxide 400 mg magnesium Tablet 400 mg PO DAILY Ozempic 0.25 mg or 0.5 mg (2 mg/3 mL) pen injector 0.5 mg SUBCUT WEEKLY Rx Instructions: for four weeks. started dose on 05/13 doxycycline hyclate 100 mg capsule 100 mg PO DAILY Qty: 7 0RF <Dionne Randhawa PA-C - Last Filed: 11/23/24 13:55> Follow-up/Referrals: PHYSICIAN NOT ON STAFF,NONSTAFF [Primary Care Provider] - Yoel Faith MD [Physician] - 1 Week (Ventral hernia) <Dionne Randhawa PA-C - Last Filed: 11/23/24 13:55> Stand Alone Forms: Retirement Discharge <Dionne Randhawa PA-C - Last Filed: 11/23/24 13:55> Time of Disposition: 20:04 <Dionne Randhawa PA-C - Last Filed: 11/23/24 13:55> 20:04 <Ignacio Morales MD - Last Filed: 11/23/24 20:05>
--- NOTE | 2024-11-23 13:57 | PC.NURSE ---
pt needed help in triage to urinate. pt was able to use urinal with help of myself, afterwards pt was taken to room 18 per pivot jad Herrera, urine sample given to her and pt left with rn.
[2024-11-23 14:13] LABS: Basophils Percent Auto 0.3 % (0.2-1.2); Eosinophils Absolute Auto 0.3 K/mm3 (0-0.3); Eosinophils Percent Auto 2.7 % (0-4.4); Hematocrit 42.9 % (42.0-52.0); Hemoglobin 13.7 g/dL (14.0-18.0); Immature Granulocyte Absolute 0.09 K/mm3 (0.00-0.031); Immature Granulocyte Percent A 0.9 % (0-0.5); Lymphocytes Absolute Auto 2.28 K/mm3 (0.9-3.2); Lymphocytes Percent Auto 23.3 % (18.3-44.2); Mean Corpuscular HGB Conc 31.9 g/dl (32-36); Mean Corpuscular Hemoglobin 31.4 pg (26-34); Mean Corpuscular Volume 98.4 fl (80-100); Mean Platelet Volume 8.7 fl (7.4-10.4); Monocytes Absolute Auto 1.1 K/mm3 (0.1-0.6); Monocytes Percent Auto 10.8 % (2.6-8.5); Neutrophils Absolute Auto 6.1 K/mm3 (1.3-6.7); Platelet Count Result 224 k/mm3 (150-375); Red Blood Count 4.36 M/mm3 (4.6-6.20); Red Cell Distribution Width 13.6 % (11.5-14.5); White Blood Count 9.8 K/mm3 (4.5-10.0)
[2024-11-23 14:23] LABS: Add Urine Microscopic? YES; Appearance Urine Cloudy (Clear); Bacteria Urine 4+ /hpf; Bilirubin Urine Negative (Negative); Blood Urine Negative (Negative); Color Urine Yellow (Yellow); Glucose Urine UA Negative (Negative); Hyaline Casts Urine Present /lpf; Ketones Urine Negative (Negative); Leukocyte Esterase Ur 3+ LEU/UL (Negative); Need Manual Microscopic Reviewed; Nitrate Urine Positive (Negative); Non Pathogenic Casts >20; Protein Urine Negative (Negative); RBC Urine 0-2 /hpf (0-2); Squamous Epithelial Cell Urine None Seen /hpf (Few); Urobilinogen Urine 0.2 mg/dL (<2.0); WBC Clumps Urine Present /HPF; WBC Urine >100 /hpf (0-3); pH Urine 6.5 (5.0-9.0)
[2024-11-23 14:24] LABS: Prothrombin Time 13.7 Seconds (11.1-14.7)
[2024-11-23 14:25] LABS: Partial Thromboplastin Time 27.1 Seconds (22.3-36.8)
[2024-11-23 14:29] LABS: Lactic Acid Reflex 1.8 mmol/L (0.7-2.0)
[2024-11-23 14:30] LABS: Alanine Aminotransferase 16 U/L (6-50); Alkaline Phosphatase 106 U/L (38-126); Anion Gap 7 mmol/L (4-12); Aspartate Amino Transferase 20 U/L (17-59); Bilirubin,Total 0.5 mg/dL (0.2-1.3); Blood Urea Nitrogen 23 mg/dL (9-20); Calcium 9.5 mg/dL (8.4-10.2); Carbon Dioxide 33 mmol/L (22-30); Chloride 97 mmol/L (98-107); Estimated Glomerular Filt Rate 58; Glucose 136 mg/dL (65-110); Potassium 4.5 mmol/L (3.4-5.0); Sodium 137 mmol/L (137-145)
--- OUTSIDE RECORDS SUMMARY | 2024-11-23 15:49 | XMS_ITS | Encounter Summary ---
Author Organization [facility] Address [address] [place] [address] Phone Care Team Providers Care Locomotive Mechanic Name Role Phone Unknown, Notinfalycia Primary Care Provider Unavail able Trevor Moctezuma MD Primary Care Provider [phone] Encounter Details Date Type Department Care Team (Latest Contact Info) Description 11/21/2017 Orders Only [facility] CONVERSION Scanning, Provider Social History Tobacco Use Types Packs/Day Years Used Date Smoking Tobacco: Never Assessed Sex and Gender Information Value Date Recorded Sex Assigned at Not on file Legal Sex Male 7:06 PM SOLUTION MAKE 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 Gender Identity Not on file Sexual Orientation Not on file documented as of this encounter Plan of Treatment Not on file documented as of this encounter Procedures Procedure Name Priority Date/Time Associated Diagnosis Comments VASCULAR LABORATORY REPORT 11/21/2017 4:13 PM SOLUTION MAKE UP OPERATOR documented in this encounter Results * VASCULAR LABORATORY REPORT (11/21/2017 4:13 PM SOLUTION MAKE UP OPERATOR) Anatomical Region Laterality Modality Ultrasound us Provider Scanning CV VASCULAR PROCEDURES Final R esult documented in this encounter Visit Diagnoses Not on filedocumented in this encounter Additional Health Concerns Infection Onset Date Last Indicated Resolved Time 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
--- OUTSIDE RECORDS SUMMARY | 2024-11-23 15:49 | XMS_ITS | Data Portability ---
Author Organization [facility] IP Address [address] [place] [address] Assessment No assessment recorded. Plan of Treatment Reminders Order Date Submit Date Provider Last Modified By Organization Details Last Modified Time Details Appointments None recorded. Lab None recorded. Referral general surgeon referral - Morbid obeisity with vasculopat hy, S/P L BKA, open VHR x 3 with mesh in . Now left of midline hernia. Too complex a pt for [facility]. 2021 022 [email or web address] Not available 12:52:15 Procedures None recorded. Surgeries None recorded. Imaging None recorded. Medication Orders None recorded. Patient TargetsNo targets recorded. Patient InstructionsNo instructions recorded. Reason for Referral General Surgeon Referral for Recurrent hernia of anterior abdominal wall complex ventral incisional hernia Morbid obeisity with vasculopathy, S/P L BKA, open VHR x 3 with mesh in . Now left of midline hernia. Too complex a pt for [facility]. Referring Physician: Magdiel Holly, General Surgery, Encounter Date: 01/20/2022 Problems Name Problem SNOMED Code Status Onset Date Resolution Date Notes Provider Name and Address Organization Details Recorded Time Type 2 diabetes mellitus 24244105 Active 2021 Magdiel Holly MD [address], [place], [address], [facility] 2 10:51:54 Hernia of anterior abdominal wall 439637131 Active 2021 Magdiel Holly MD [address] [place], [address], [facility] 2 10:52:11 Essential hypertension 01303991 Active 2021 Magdiel Holly MD [address], [place], [address], [facility] 2 10:52:20 Gastroesophage al reflux disease 452793829 Active 2021 Magdiel Holly MD [address], [place], [address], [facility] 2 10:52:27 Hyperlipidemia 20245166 Active 2021 Magdiel Holly MD [address], [place], [address], [facility] 2 10:52:35 Problem Notes None recorded. Procedures Surgical History Date Name Laterality Status Provider Name and Address Organization Details Recorded Time hernia repair completed [facility] 10:42:58 hernia repair completed Beatriz [facility] 10:43:05 hernia repair completed [facility] 10:43:12 Imaging Results None recorded. Procedure Notes None recorded. Medical Equipment None Reported. Allergies Allergen ID Allergen Name Allergen Category Reaction Reaction Severity Criticality Documentation Date Start Date Code Code System Note Provider Name and Address Organization Details Recorded Time 832468 Product containin g penicilli n and antibioti c (product) medicatio n other Not available Not available 01/20/2022 25791 05 SNOMED Not Available Not Available Not Available Medications Name Sig Start Date Stop Date Status Note LastModified by Organization Details LastModified Time buspirone 5 mg tablet active Not Available Not Available Not Available metformin 500 mg tablet active Not Available Not Available Not Available potassium chloride ER 10 mEq capsule,extended release active Not Available Not Available Not Available atorvastatin 10 mg tablet active Not Available Not Available Not Available glipizide 10 mg tablet active Not Available Not Available Not Available metolazone 5 mg tablet active Not Available Not Available Not Available melatonin 3 mg tablet active Not Available Not Available Not Available sulfamethoxazole 800 mg-trimethoprim 160 mg tablet active Not Available Not Availabl e Not Available pantoprazole 20 mg tablet,delayed release active Not Available Not Available Not Available potassium chloride ER 20 mEq tablet,extended release(part/cryst ) active Not Available Not Available Not Available furosemide 80 mg tablet active Not Available Not Available Not Available mirtazapine 30 mg tablet active Not Available Not Available Not Available cyanocobalamin (vit B-12) 1,000 mcg sublingual tablet active Not Available Not Available Not Available mirtazapine 15 mg tablet active Not Available Not Available Not Available ergocalciferol (vitamin D2) 1,250 mcg (50,000 unit) capsule active Not Available Not Available Not Available glipizide 5 mg tablet active Not Available Not Available Not Available escitalopram 10 mg tablet active Not Available Not Available Not Available Novolog FlexPen U-100 Insulin aspart 100 unit/mL (3 mL) subcutaneous active Not Available Not Available Not Available povidone-iodine 10 % topical solution active Not Available Not Harriet ilable Not Available bupropion HCl XL 150 mg 24 hr tablet, extended release active Not Available Not Available Not Available Florastor 250 mg capsule active Not Available Not Available Not Available escitalopram 5 mg tablet active Not Available Not Available Not Available Senexon-S 8.6 mg-50 mg tablet active Not Available Not Availa ble Not Available Thera-M 9 mg iron-400 mcg tablet active Not Available Not Available Not Available Basaglar KwikPen U-100 Insulin 100 unit/mL (3 mL) subcutaneous active Not Available Not Available Not Available insulin glargine-yfgn (U-100) 100 unit/mL (3 mL) subcutaneous pen active Not Available Not Avail able Not Available Vitals Date Recorded Pain severity - 0-10 verbal numeric rating [Score] - Reported Body temperature Heart rate Oxygen saturation Oxygen saturation in Arterial blood by Pulse oximetry Systolic blood pressure Diastolic blood pressure Provider Name and Address Organization Details Last Updated DateTime 2 0 97.1 [degF] 93 /min 87 % 87 % 121 mm[Hg] 56 mm[Hg] Beatriz Diallo PA - [facility] 2 10:46:28 Social History Question Answer Notes LastModified by Organizat ion Details LastModified Time Tobacco Smoking Status Never Smoker Beatriz bueno PA - [facility] 01/20/2022 10:42:30 Do You Have An Advance Directive? No Information not available 01/20/2022 Do You Have A Medical Power Of Work Distributor? No Information not available 01/20/2022 What Is Your Relationship Status? Information not available 01/20/2022 Sex: Unknown Functional Status None recorded. Mental Status None recorded. Family History Nothing Reported. Medical History Condition Response Diabetes Y Gout N Bleeding Disorder N Seizures/Epilepsy N Arthritis Y High Cholesterol N Liver Disease N Stroke N Asthma N COPD N Kidney Disease N Past Encounters Encounter ID Performer Location Encounter Start Date Encounter Closed Date Diagnosis/Indication Diagnosis SNOMED-CT Code Diagnosis ICD10 Code Diagnosis Note [id number] Magdiel Holly MD [facility] [address] [place] [address] 01/20/2022 10:33:04 01/21/2022 14:21:25 Recurrent hernia of anterior abdominal wall 501850370 K43.9 1) large-neck ed hernia, low risk for incarcerat ion/kevin ulation2) patient with several complicati ng comorbidit ies, including DM, vasculopat hy, and morbid3) repair will likely need to involve complex techniques , possible componant separation , and may involve a prolonged hospital stay to ensure success and patient safety4) give all of the above, I do not feel that surgery at [facility] is in the patient's best interest given the lack of intensive care services and other advanced care services at our facility. He will be best served at a tertiary care center with a surgery team more versed in complex hernia repair. I will refer to [facility] surger. Health Concerns Section Related Observation LastModified by Organization Detai ls LastModified Time None Recorded Concern Status LastModified by Organization Details LastModified Time None Recorded Advance Directives Directive N: Payers Encounter Date Sequence Insurance Name Policy Number Policy Rice Covered Member ID Rice Member ID Guarantor Name 01/20/2022 1 [facility] - DOS ON OR AFTER 2020 - DUAL ELIGIBLE (MEDICARE REPLACEMENT/A DVANTAGE - HMO) [id number] Wing Veloz [id number] Wing Veloz Notes Date Note Type Note Provider Name and Address Organization Details Recorded Time 01/20/2022 text/html HerniaReported bypatient.Location:l eft; left of midline lower abdominal hernia, incisional vs recurrent ventral Quality:bulging;achi ng;gnawing Severity:moderate; worsening Duration:has noted for years Onset/Timing:patient had h/o hernia repair x3 in the with mesh. Has noted this bulge for several years at least Context:patient is a vasculopathy/diabeti c with BKA hx Alleviating factors:rest Aggravating factors:coughing/sne ezing Associated Symptoms:no nausea; no vomiting; no swelling/redness Magdiel Holly MD [address], [place], [address], [facility] 01/20/2022 11:13:15
--- OUTSIDE RECORDS SUMMARY | 2024-11-23 15:49 | XMS_ITS | Clinical Summary ---
Author Organization [facility] Address [address] [place] [address] Care Team Providers Care Corrugator Operator Helper Name Role Phone Renato Moctezuma MD Primary Care Provider [phone] Source Comments [facility],non-owned Affiliates and Associated Physician Practices is amultiple site organization consisting of ambulatory clinics and hospital sitesin [place], [place], [place] and [place]. This disclosure is being madepursuant to the [facility] Everywhere program and may not contain all information available regarding this patient. Last updated 18.[facility] [employer] Allergies Active Allergy Reactions Criticality Noted Date Comments Penicillins Fever Medium 03/22/2018 Medications * Be aware that medications may not be up to date on this document. Alwaysverify current medications with the patient. Medication Sig Dispensed Refills Start Date End Date Status atorvastatin (LIPITOR) 10 MG tablet 06/05/2020 Active buPROPion XL 24hr (WELLBUTRIN-XL) 150 MG tablet 04/27/2021 Active clotrimazole-betameth asone (LOTRISONE) 1-0.05 % cream 03/06/2021 Active escitalopram (LEXAPRO) 10 MG tablet 06/13/2020 Active gabapentin (NEURONTIN) 600 MG tablet 04/24/2021 Active insulin aspart (NOVOLOG) vial 05/07/2021 Active LANTUS vial 05/13/2021 Active HUMALOG KWIKPEN 100 UNIT/ML pen 02/23/2021 Active ketoconazole (NIZORAL) 2 % cream 03/09/2021 Activ e VICTOZA 18 MG/3ML pen 04/25/2021 Act gonsalo lisinopril (PRINIVIL; ZESTRIL) 10 MG tablet 05/28/2020 Act gonsalo metFORMIN (GLUCOPHAGE) 1000 MG tablet 04/21/2021 Active mirtazapine (REMERON) 30 MG tablet 06/06/2020 Active ondansetron, disintegrating, (ZOFRAN ODT) 4 MG tablet 02/04/2021 Active pantoprazole EC (PROTONIX) 20 MG tablet 04/22/2021 Active SSD 1 % cream 02/10/2021 Active traMADol (ULTRAM) 50 MG tablet 01/26/2021 Active traZODone (DESYREL) 100 MG tablet 01/20/2021 Active potassium chloride ER (KLOR-CON) 20 MEQ tablet Take 60 mEq by mouth once daily Active melatonin 3 MG tablet Take 3 mg by mouth at bedtime Active ACETAMINOPHEN PO Take 500 mg by mouth Active polyethylene glycol 3350 (MIRALAX) 17 GM/SCOOP powder Take 17 g by mouth once daily Active Cholecalciferol (VITAMIN D3) 1.25 MG (10363 UT) TABS Take 50,000 Units by mouth every 7 days Active metOLazone (ZAROXOLYN) 5 MG tablet Take 5 mg by mouth once daily Active Sennosides-Docusate Sodium (SENNA-DOCUSATE SODIUM) 8.6-50 MG Active Multiple Vitamin (MULTIVITAMIN ADULT PO) Active Cyanocobalamin (VITAMIN B-12 1000 MCG) 1000 MCG SUBL Active busPIRone (BUSPAR) 5 MG tablet Take 5 mg by mouth 3 times daily Active furosemide (LASIX) 80 MG tablet Take 80 mg by mouth once daily Active glipiZIDE CR 24hr (GLIPIZIDE XL) 5 MG tablet Take 5 mg by mouth daily before breakfast Active Ascorbic Acid (VITAMIN C) 500 MG Active Active Problems Problem Noted Date Diagnosed Date ESRD (end stage renal disease) 07/24/2021 Social History Tobacco Use Types Packs/Day Years Used Date Smoking Tobacco: Never Smokeless Tobacco: Never Tobacco Cessation:Counseling Given: No Alcohol Use Standard Drinks/Week Comments Never 0 (1 standard drink = 0.6 oz pur e alcohol) Sex and Gender Information Value Date Recorded Sex Assigned at Not on file Gender Identity Not on file Sexual Orientation Not on file Last Filed Vital Signs Vital Sign Reading Time Taken Comments Blood Pressure 131/79 02/02/2022 2:45 PM CDT Pulse 94 02/02/2022 2:45 PM CDT Temperature 37 C (98.6 F) 02/02/2022 2:45 PM CDT Respiratory Rate - - Oxygen Saturation 98% 02/02/2022 2:45 PM CDT Inhaled Oxygen Concentration - - Weight 136.1 kg (300 lb) 02/02/2022 2:45 PM CDT Height 188 cm (6' 2 ) 02/02/2022 2:45 PM CDT Body Mass Index 38.52 02/02/2022 2:45 PM CDT Plan of Treatment Health Maintenance Due Date Last Done Comments COLOGUARD (AGES 45-75) - COL ON CA SCREENING 1954 COLON MONITORING 1954 COLONOSCOPY - COLON CA SCREENING 1954 CT COLONOGRAPHY - COLON CA SCREENING 1954 Colorectal Cancer Screening 1954 FIT - COLON CA SCREENING 1954 FLEX SIG - COLON CA SCREENING 1954 MEDICARE AWV 12 MONTHS 1954 HEPATITIS C SCREENING 11/13/1972 DTAP/TDAP/TD VACCINES (1 - Tdap) 1973 PNEUMOCOCCAL VACCINE 50+ (1 of 1 - PCV) 2004 ZOSTER VACCINE (1 of 2) 2004 SCREENING FOR DIABETES 07/07/2021 COVID-19 VACCINE (1 - 2023-2 5 season) 2024 INFLUENZA VACCINE (#1) 2024 08/31/2021 DEPRESSION SCREENING 10/17/2024 Respiratory Syncytial Virus (RSV) Vaccine Pt: or over 60 yrs (1 - 1-dose 75+ series) 2029 HEPATITIS B VACCINE Aged Out No longe r eligible based on patient's age to complete this topic HIB VACCINE Aged Out No longer eligi ble based on patient's age to complete this topic HPV VACCINE Aged Out No longer eligi ble based on patient's age to complete this topic MENINGOCOCCAL (Group B) VACCINE Aged Out No longer eligible based on patient's age to complete this topic MENINGOCOCCAL VACCINE Aged Out No maria l daly eligible based on patient's age to complete this topic Care Teams Corrugator Operator Helper Relationship Specialty Start Date End Date Renato Moctezuma MD [address] [address] PCP - General 07/07/21
--- OUTSIDE RECORDS SUMMARY | 2024-11-23 15:49 | XMS_ITS | Referral Summary ---
Author Organization [facility] Address [address] [place] [address] Care Team Providers Care Neurophysiological Technician Name Role Phone Renato Moctezuma MD Primary Care Provider Source Comments [facility],non-owned Affiliates and Associated Physician Practices is amultiple site organization consisting of ambulatory clinics and hospital sitesin [place], [place], [place] and [place]. This disclosure is being madepursuant to the [facility] Everywhere program and may not contain all information available regarding this patient. Last updated 18.[facility] [email or web address] Allergies Active Allergy Reactions Criticality Noted Date [...] daily Active Cholecalciferol (VITAMIN D3) 1.25 MG (73369 UT) TABS Take 50,000 Units by mouth [...] 02/02/2022 2:45 PM CDT Plan of Treatment Not on file Care Teams Neurophysiological Technician Relationship Specialty Start Date End Date Renato Moctezuma MD [address] [place] [phone] PCP - General 07/07/21
--- OUTSIDE RECORDS SUMMARY | 2024-11-23 15:49 | XMS_ITS | Clinical Summary ---
Author Organization [facility] Address [address] [place] [id number] Care Team Providers Care Securities Dealer Name Role Phone Trevor Moctezuma MD Primary Care Provider [phone] Allergies Active Allergy Reactions Criticality Noted Date Comments Penicillins Fever Medium 03/22/2018 Medications acetaminophen (TYLENOL) 500 mg tablet Take 1 tablet (500 mg total) by mouth every 6 (six) hours as needed 12/23/19 18 Active senna-docusat e (PERICOLACE) 8.6-50 mg Take 1 tablet by mouth daily 12/23/19 18 Active multivitamin, uz-leie-oiocu als tablet Take 1 tablet by mouth daily 12/23/19 18 Active ascorbic acid (VITAMIN C) 500 mg tablet,chewab le Take 1 tablet/chew tab (500 mg total) by mouth 2 times daily 12/23/19 18 Active escitalopram (LEXAPRO) 5 mg tablet Take 1 tablet (5 mg total) by mouth daily 06/13/20 20 Active lisinopriL (PRINIVIL,ZES TRIL) 2.5 mg tablet Take 1 tablet (2.5 mg total) by mouth daily 05/28/20 20 Active atorvastatin (LIPITOR) 10 mg tablet Take 1 tablet (10 mg total) by mouth nightly 06/05/20 20 Active insulin glargine 100 unit/mL vial for injection Inject 90 Units under the skin nightly 05/17/20 24 Active NovoLOG 100 unit/mL vial for injection Inject 50-60 Units under the skin 3 (three) times a day before meals 50 units with breakfast, 60 units with lunch and 53 units with dinner 08/08/20 24 Active Ozempic 2 mg/dose (8 mg/3 mL) pen injector injection Inject 2 mg under the skin once a week On Tuesday08/03/20 Active famotidine (PEPCID) 20 mg tablet Take 1 tablet (20 mg total) by mouth daily 07/25/20 Active buPROPion XL (WELLBUTRIN XL) 150 mg 24 hr tablet Take 1 tablet (150 mg total) by mouth every morning 08/01/20 Active furosemide (LASIX) 20 mg tablet Take 3 tablets (60 mg total) by mouth daily Active magnesium oxide (MAG-OX) 400 mg (241.3 mg elemental magnesium) tabletIndicat ions:hypomagn esemia Take 1 tablet (400 mg total) by mouth daily Active cyanocobalami n (Vitamin B-12) 1,000 mcg sublingual tabletIndicat ions:Preventi on of Vitamin B12 Deficiency Take 1 tablet (1,000 mcg total) by mouth daily Active glipiZIDE (GLUCOTROL) 10 mg tablet Take 2 tablets (20 mg total) by mouth 2 (two) times a day before breakfast and lunch Active ergocalcifero l (VITAMIN D) 50,000 unit capsule Take 1 capsule (50,000 Units total) by mouth once a week Mondays Active potassium chloride ER 20 mEq CR tablet Take 4 tablets (80 mEq total) by mouth 3 (three) times a day Active metOLazone (ZAROXOLYN) 2.5 mg tablet Take 1 tablet (2.5 mg total) by mouth daily 08/02/20 Active melatonin tablet Take 1 tablet (3 mg total) by mouth nightly Active traMADoL (ULTRAM) 50 mg tablet Take 1 tablet (50 mg total) by mouth every 6 (six) hours as needed for pain Active diclofenac sodium (VOLTAREN) 1 % gel Apply 4 g topically daily Right knee and right shoulder Active mupirocin (BACTROBAN) 2 % ointment Apply 1 Application topically daily To leg Active hydrocortison e 0.5 % cream Apply 1 Application topically 3 (three) times a day as needed To face Active glucagon 1 mg kit Inject 1 mL (1 mg total) into the muscle as instructed as needed Active insulin glargine (LANTUS, BASAGLAR, SEMGLEE) 100 unit/mL (3 mL) pen for injection INJECT SUBCUTANEOUSLY DIRECTED0.37units q evening 12/23/19 18 2023 Discontinued Active Problems Problem Noted Date Diagnosed Date Abdominal pain 08/14/2024 Recurrent hernia 08/14/2024 Surgical History Surgery Date Site/Laterality Comments HERNIA REPAIR Ventral hernia repair x3 30 yrs ago BELOW KNEE LEG AMPUTATION APPENDECTOMY Medical History Medical History Date Comments Hypertension Type 2 diabetes mellitus (HCC) Hyperlipidemia TAWANDA (obstructive sleep apnea) Social History Tobacco Use Types Packs/Day Years Used Date Smoking Tobacco: Never Smokeless Tobacco: Never Alcohol Use Standard Drinks/Week Comments No 0 (1 standard drink = 0.6 oz pur e alcohol) [facility] Utilities Answer Date Recorded In the past 12 months has th e electric, gas, oil, or water company threatened to shut off services in your home? No 08/14/2024 Social Connection and Isolation Panel [NHANES] A nswer Date Recorded In a typical week, how many times do you talk on the phone with family, friends, or neighbors? Three times a week 08/14/2024 How often do you get togethe r with friends or relatives? Three times a week 08/14/2024 How often do you attend chur ch or tenriism services? Never 08/14/2024 Do you belong to any clubs o r organizations such as muslim groups, unions, fraternal or athletic groups, or school groups? No 08/14/2024 How often do you attend meet ings of the clubs or organizations you belong to? Never 08/14/2024 Are you , , di vorced, , never , or living with a partner? 08/14/2024 AUDIT-C Answer Date Recorded Q1: How often do you have a drink containing alc ohol? Never 12/04/2021 Average Number of Drinks Not on file 022 Frequency of Binge Drinking Not on file 11/17 Overall Financial Resource Strain (CARDIA) Answe r Date Recorded How hard is it for you to pa y for the very basics like food, housing, medical care, and heating? Not very hard 08/14/2024 PHQ-2 Answer Date Recorded PHQ-2 Total Score (If total score is 3 or more points, staff should administer the PHQ-9) 0 08/14/2024 Hunger Vital Sign Answer Date Recorded Within the past 12 months, y ou worried that your food would run out before you got the money to buy more. Never true 08/14/20 24 Within the past 12 months, t he food you bought just didn't last and you didn't have money to get more. Never true 08/14/2024 PRAPARE - Transportation Answer Date Re corded In the past 12 months, has l ack of transportation kept you from medical appointments or from getting medications? No 07/18 In the past 12 months, has l ack of transportation kept you from meetings, work, or from getting things needed for daily living? No 08/14/2024 Housing Stability Vital Sign Answer Andrey e Recorded In the last 12 months, was t here a time when you were not able to pay the mortgage or rent on time? No 08/14/2024 In the past 12 months, how m any times have you moved where you were living? 0 08/14/2024 At any time in the past 12 m [facility], were you homeless or living in a group home (including now)? No 08/14/2024 Personal Safety Answer Date Recorded Have you ever been in or are you currently in a harmful physical or emotional relationship or is someone making you feel afraid or unsafe? 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 Gender Identity Not on file Sexual Orientation Not on file Obstetrics History Last Filed Vital Signs Vital Sign Reading Time Taken Comments Blood Pressure 145/65 08/14/2024 11:30 AM CDT Pulse 91 08/14/2024 11:30 AM CDT Temperature 37 C (98.6 F) 08/14/2024 11:30 AM CDT Respiratory Rate 18 08/14/2024 11:30 AM CDT Oxygen Saturation 94% 08/14/2024 11:30 AM CDT Inhaled Oxygen Concentration - - Weight 160.8 kg (354 lb 8 oz) 08/13/2024 11:44 P M CDT Height 188 cm (6' 2 ) 08/13/2024 8:58 PM CDT Body Mass Index 45.52 08/13/2024 8:58 PM CDT Plan of Treatment Health Maintenance Due Date Last Done Comments Colon Cancer Screening-Colonoscopy 1954 Hepatitis C Screening 1954 Hepatitis B Screening 1972 Zoster Vaccine (1 of 2) 2004 Pneumococcal vaccine 65+ (1 of 1 - PCV) 2019 Well Visit 65+ 2019 DTaP/Tdap/Td Vaccine (2 - Tdap) 04/22/2024 4 Influenza Vaccine (#1) 2024 1, 11/17/2017, 09/02/2016, Additional history exists Depression Screening 08/13/2025 08/13/2024, 08/13/20 24 Fall Risk Assessment 08/14/2025 08/14/2024 Prostate Cancer Screening-PSA Discontinued 03/01/2014 Procedures Procedure Name Priority Date/Time Associated Diagnosis Comments PSA SCREEN Routine 03/01/2014 8:12 AM CDT from Last 3 Months or Most Recently Relevant to Health Maintenance Results * PSA screen (03/01/2014 8:12 AM CDT) PSA Screen < 0.1 0.0 - 3.9 ng/mL 03/01/2014 9:[address] [facility] [employer] HISTORICAL RESULTS Comment: Method: ECLIA Values obtained by different assay methods cannot be used interchangeably. Use sequential testing to confirm baseline if assay method changed during patient monitoring. 03/01/2014 8:12 AM CDT 03/01/2014 8:[address] [facility] [employer] HISTORICAL RESULTS - 03/01/2014 9:24 AM CDT PT HAS BEEN FASTING FOR 8 HOURS us Jonel Alston MD LAB BLOOD ORDERABLES Final Result 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
--- OUTSIDE RECORDS SUMMARY | 2024-11-23 15:49 | XMS_ITS | Referral Summary ---
Author Organization [facility] Address [address] [place] [id number] Care Team Providers Care Computer Programmer Analyst Name Role Phone Trevor Moctezuma MD Primary Care Provider [phone] Allergies Active Allergy Reactions Criticality Noted Date Comments Penicillins Fever Medium 03/22/2018 Medications acetaminophen (TYLENOL) 500 mg tablet Take 1 tablet (500 mg total) by mouth every 6 (six) hours as needed 12/23/19 18 Active senna-docusat e (PERICOLACE) 8.6-50 mg Take 1 tablet by mouth daily 12/23/19 18 Active multivitamin, vq-nnzi-seczf als tablet Take 1 tablet by mouth [...] Date Abdominal pain 08/14/2024 Recurrent hernia 08/14/2024 Social History Tobacco Use Types Packs/Day Years Used Date Smoking Tobacco: Never Smokeless Tobacco: Never Alcohol Use Standard Drinks/Week Comments No 0 (1 standard drink = 0.6 oz pur e alcohol) [facility] Utilities Answer Date Recorded In the past 12 months has e electric, gas, oil, or water company [...] often do you attend chur ch or latter-day services? Never 08/14/2024 Do you belong to any clubs o r organizations such as nondenominational groups, unions, fraternal or athletic groups, or [...] any time in the past 12 m [facility], were you homeless or living in a [place] [facility] [place] facility (including now)? No 08/14/2024 Personal Safety Answer Date Recorded Have you ever been in or are you currently in a harmful physical or emotional relationship or is someone making you feel afraid or unsafe? 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 Use sequential testing to confirm baseline if assay method changed during patient monitoring. 03/01/2014 8:12 AM CDT 03/01/2014 8:32 AM CDT Narrative [facility] [employer] [facility] HISTORICAL RESULTS - 03/01/2014 9:24 AM CDT PT HAS BEEN FASTING FOR 8 HOURS us Jonel Alston MD LAB BLOOD ORDERABLES Final Result [facility] HISTORICAL RESULTS from Last 3 Months or Most Recently Relevant to Health Maintenance Insurance MEDICARE IDPA [facility] PLAN OF OR [facility] DUAL OR [facility] DUAL OR [facility] Advance Directives For more information, please contact: [phone] Documents on File Type Date Recorded 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
--- OUTSIDE RECORDS SUMMARY | 2024-11-23 15:50 | XMS_ITS | Clinical Summary ---
Author Organization [facility] Address [address] [place] [phone] Phone Care Team Providers Care Machine Heddle Cleaner Name Role Phone Renato Moctezuma MD Primary Care Provider Unavailabl e Allergies Active Allergy Reactions Criticality Noted Date Comments Penicillins Fever Medium 03/22/2018 Other reaction(s): Chill, Flushing Medications Medication Sig Dispensed Refills Start Date End Date Status acetaminophen (TYLENOL) 500 MG tablet take 1 tablet by oral route every 6 hours as needed not to exceed 8 tablets per 24hrs 12/22/2017 Active insulin glargine (Lantus) 100 UNIT/ML injection Inject under the skin 05/13/2021 Active insulin aspart (NovoLOG) 100 UNIT/ML injection 05/07/2021 Active ergocalciferol (VITAMIN D-2) 1.25 MG (23191 UT) capsule Take 1 capsule by mouth once a week Active pantoprazole (PROTONIX) 20 MG EC tablet Take by mouth daily 04/22/2021 Active metOLazone (ZAROXOLYN) 5 MG tablet Take by mouth daily Active buPROPion XL (WELLBUTRIN XL) 150 MG 24 hr tablet Take by mouth daily 04/27/2021 Active escitalopram (LEXAPRO) 10 MG tablet Take by mouth daily 06/13/2020 Active escitalopram (LEXAPRO) 5 MG tablet Take by mouth daily 06/03/2020 Active furosemide (LASIX) 80 MG tablet Take by mouth daily Active potassium chloride (KLOR-CON M20) 20 MEQ CR tablet Take by mouth every 12 hours Active senna-docusate (Senexon-S) 8.6-50 MG per tablet Take by mouth daily 12/22/2017 Active Multiple Vitamins-Minerals (Thera-M) tablet 1 (one) time each day 12/22/2017 Active Cobalamin Combinations (B-12) 100-5000 MCG sublingual tablet Dissolve 1 tablet under tongue daily. Active ascorbic acid (VITAMIN C) 500 MG tablet Take 1 tablet orally twice daily. 12/22/2017 Active atorvastatin (LIPITOR) 10 MG tablet Take by mouth daily 06/05/2020 Active melatonin 3 MG tablet Take 1 tablet orally at bedtime Active mirtazapine (REMERON) 30 MG tablet Take by mouth daily 06/06/2020 Active ondansetron ODT (ZOFRAN-ODT) 4 MG dispersible tablet 02/04/2021 Active mupirocin (BACTROBAN) 2 % ointment Apply topically every 12 hours Active Active Problems Problem Noted Date Diagnosed Date Hypertensive disorder 09/19/2021 Dyslipidemia 09/19/2021 Peripheral arterial occlusive disease 09/19/2021 Type 1 diabetes mellitus 09/19/2021 Acute kidney failure 09/19/2021 Immunizations Name Administration Dates Next Due Influenza TIV (IM) 08/31/2021 Social History Tobacco Use Types Packs/Day Years Used Date Smoking Tobacco: Never Smokeless Tobacco: Never Alcohol Use Standard Drinks/Week Comments Not Currently 0 (1 standard drink = 0.6 oz pur e alcohol) Sex and Gender Information Value Date Recorded Sex Assigned at Not on file Gender Identity Not on file Sexual Orientation Not on file Last Filed Vital Signs Vital Sign Reading Time Taken Comments Blood Pressure 126/80 02/18/2022 11:34 AM CDT Pulse 72 02/18/2022 11:34 AM CDT Temperature 36.4 C (97.6 F) 02/18/2022 11:34 AM CDT Respiratory Rate - - Oxygen Saturation - - Inhaled Oxygen Concentration - - Weight 146 kg (321 lb) 02/18/2022 11:34 AM CDT Height 188 cm (6' 2 ) 02/18/2022 11:34 AM CDT Body Mass Index 41.21 02/18/2022 11:34 AM CDT Plan of Treatment Health Maintenance Due Date Last Done Comments Pneumococcal PPSV23/PCV13 65 + Years / Low and Medium Risk (1 of 4 - PCV) 2019 Influenza Vaccine (#1) 2024 08/31/2021 Care Teams Machine Heddle Cleaner Relationship Specialty Start Date End Date Renato Moctezuma MD [address] [place] [address] PCP - General Internal Medicine 02/18/22
--- OUTSIDE RECORDS SUMMARY | 2024-11-23 15:50 | XMS_ITS | Data Portability ---
Author Organization [facility] [employer], Main Office Address [address] [place] [address] Assessment Encounter Date Assessment Date Assessment LastModified by Organization Details LastModified Time 12/21/2022 12/21/2022 Assessment: TAWANDA PLMD Hypoventilation Plan: The following were reviewed and explained to the patient: primary care/referral note We will try to obtain old sleep studies from [facility] from around 1989. General information on sleep disordered breathing, evaluation of sleep disordered breathing, treatment with PAP therapy, and living with PAP therapy were covered. PSG is medically necessary to determine the degree of and management of sleep apnea. We discussed with the patient the impact of weight on: Sleep disordered breathing Hypertension Hyperlipidemia DM CAD THAD PVD Stasis dermatitis We discussed with the patient the benefit of PAP therapy on: Sleep disordered breathing Depression/Anxie ty Hypertension DM THAD Educated the patient on sleep hygiene measures. Relaxing rituals to rest easy, understanding foods with positive and negative impact on sleep, creating a peaceful sleep environment, timing of exercise, using herbal sleep aids, and practicing sleep-friendly meditation were covered. To determine how much sleep is needed, the patient will assess where he falls on the spectrum, examine what lifestyle factor such as stress is affecting the quality and quantity of sleep. In general, adults need 7-9 hours of sleep. Educated the patient regarding foods that promote sleep. These include but are not limited to cherries, bananas, toast, oatmeal, and warm milk. Educated the patient regarding foods and drinks to avoid before bedtime. These include but are not limited to aged cheese, chocolate, spicy foods, tomato-based sauces, soy, ginseng tea and processed meat. Advocated influenza vaccination annually and pneumonia vaccination ALEXANDRO. Advocated weight loss through diet and exercise. Patient's ideal body weight according to height and gender is up to 205 lbs. Encouraged patient to adjust caloric intake to maintain/achieve ideal body weight, emphasizing on fruits, vegetables, whole grains, and fat-free or low-fat products. These include lean meats, poultry, fish, beans, eggs, and nuts and foods that are low in saturated fats, trans-fats, cholesterol, salt (sodium), and glycemic index. Stressed the importance of regular exercise up to the patient's capacity limits. In this case, we recommend regular (4 x a week or more) walking or other light activity. Patient to monitor BP daily and bring records to PCP for further management. Follow-up: 1 week after diagnostic sleep study Not available 12/21/2022 12:13:53 Plan of Treatment Reminders Order Date Submit Date Provider Last Modified By Organization Details Last Modified Time Details Appointments None recorde d. Lab None recorde d. Referral None recorde d. Procedures None recorde d. Surgeries None recorde d. Imaging polysom nogram, diagnos tic, 6 yrs or older 023 12/22/19 23 [facility], [address] [place], [address], 05:02:15 Medication Orders None recorde d. Patient TargetsNo targets recorded. Patient InstructionsNo instructions recorded. Reason for Referral None Reported. Problems Name Problem SNOMED Code Status Onset Date Resolution Date Notes Provider Name and Address Organization Details Recorded Time Sleep apnea 97613574 Active 023 Harjinder Rivera MD [address] [facility], [facility] [address], [place], [address] , [facility] 12/21/2022 11:39:07 Notes:Medical History: Depre ssion/Anxiety Obesity with TAWANDA Hypertension Hyperlipidemia T2DM with neuropathy THAD PVD Stasis dermatitis Vit D deficiency Procedure History: T&A 1969 LLQ ventral herniorrhaphies 1984, 1985, 1986 Left BKA 2019 Problem Notes None recorded. Procedures Surgical History Date Name Laterality Status Provider Name and Address Organization Details Recorded Time Hernia Surgery completed Savita Hall MA [facility] 12/21/2022 11:43:42 Hernia Surgery completed Savita Hall MA [facility] 12/21/2022 11:43:43 Hernia Surgery completed Savita Hall MA [facility] 12/21/2022 11:43:44 Imaging Results None recorded. Procedure Notes None recorded. Medical Equipment None Reported. Allergies Allergen ID Allergen Name Allergen Category Reaction Reaction Severity Criticality Documentation Date Start Date Code Code System Note Provider Name and Address Organization Details Recorded Time 77000 Product containin g penicilli n and antibioti c (product) medicatio n fever Not available Not available 12/21/2022 24276 05 SNOMED Harjinder Rivera MD [address] [facility], [facility] [address], [place], [address] , [facility] [employer] 11:32:06 Medications Name Sig Start Date Stop Date Status Note LastModified by Organization Details LastModified Time buspirone 5 mg tablet active Not Available Not Available No t Available clindamycin HCl 300 mg capsule 12/21 completed Not Available Not Available Not Available trazodone 50 mg tablet active Not Available Not Available No t Available atorvastatin 10 mg tablet active Not Available Not Available Not Available glipizide 10 mg tablet active Not Available Not Available No t Available metolazone 5 mg tablet active Not Available Not Available No t Available clindamycin HCl 150 mg capsule 12/21 completed Not Available Not Available Not Available melatonin 3 mg tablet active Not Available Not Available No t Available ciprofloxacin 250 mg tablet 12/21 completed Not Available Not Available Not Available pantoprazole 20 mg tablet,delaye d release active Not Available Not Available No t Available potassium chloride ER 20 mEq tablet,extend ed release(part/ cryst) active Not Available Not Available Not Available magnesium oxide 400 mg (241.3 mg magnesium) tablet Take by oral route. 2022 active Not Available Not Available Not Avai lable furosemide 80 mg tablet active Not Available Not Available No t Available cyanocobalami n (vit B-12) 1,000 mcg sublingual tablet active Not Available Not Available Not Available mupirocin 2 % topical ointment 12/21 completed Not Available Not Available Not Available mirtazapine 15 mg tablet active Not Available Not Available Not Available ergocalcifero l (vitamin D2) 1,250 mcg (50,000 unit) capsule active Not Available Not Available Not Available SSD 1 % topical cream 12/21 completed Not Available Not Available Not Available glipizide 5 mg tablet 12/21 completed Not Available Not Available Not Available Antifungal (tolnaftate) 1 % topical powder 12/21 completed Not Available Not Available Not Available Mucinex 600 mg tablet, extended release Take 1 tablet every 12 hours by oral route. 12/21 completed Not Available Not Available Not Available escitalopram 10 mg tablet active Not Available Not Available Not Available Novolog FlexPen U-100 Insulin aspart 100 unit/mL (3 mL) subcutaneous active Not Available Not Available Not Available povidone-iodi ne 10 % topical solution 12/21 completed Not Available Not Available Not Available bupropion HCl XL 150 mg 24 hr tablet, extended release active Not Available Not Available Not Available escitalopram 5 mg tablet 12/21 completed Not Available Not Available Not Available Vitamin C active Not Available Not Harriet ilable Not Available Vitamin B12 12/21 completed Not Available Not Available Not Available Senexon-S 8.6 mg-50 mg tablet 12/21 completed Not Available Not Available Not Available Thera-M 9 mg iron-400 mcg tablet active Not Available Not Available Not Available Vitamin D2 active Not Available Not Av ailable Not Available mecobalamin (vitamin B12) 1,000 mcg disintegratin g tablet,sublin gual 12/21 completed Not Available Not Available Not Available Trulicity 0.75 mg/0.5 mL subcutaneous pen injector active Not Available Not Available Not Available Basaglar KwikPen U-100 Insulin 100 unit/mL (3 mL) subcutaneous active Not Available Not Available Not Available insulin glargine-yfgn (U-100) 100 unit/mL (3 mL) subcutaneous pen active Not Available Not Available Not Available Vitals Date Recorded Body height Body mass index (BMI) Body weight Body temperature Heart rate Oxygen saturation Oxygen saturation in Arterial blood by Pulse oximetry Systolic blood pressure Diastolic blood pressure Provider Name and Address Organization Details Last Updated DateTime 3 187.96 cm 38.5 kg/m2 935566. 71 g 98.5 [degF] 93 /min 98 % 98 % 128 mm[Hg] 70 mm[Hg] Savita Hall MA [place] [facility] [employer] 3 11:47:07 Date Recorded Heart rate Respiratory rate Provider N elaine and Address Organization Details Last Updated DateTime 12/21/2022 93 /min 15 /min Harjinder Rivera MD [address], [place], [address], [place] [employer] [facility] [employer] 12/21/2022 11:46:23 Social History Question Answer Notes LastModified by Organizat ion Details LastModified Time Tobacco Smoking Status Never Smoker Savita Hall MA null, [place] [employer] 12/21/2022 11:41:50 What Is Your Level Of Alcohol Consumption? None Information not available 12/21/2022 What Is Your Level Of Caffeine Consumption? None Information not available 12/21/2022 Are You Currently Employed? No Information not available 12/21/2022 What Type Of Diet Are You Following? REGULAR Information n ot available 12/21/2022 Do You Have An Electrostatic Air Filter? No Information not available 12/21/2022 Do You Have A Humidifier? No Information not available 12/21/2022 Where Do You Live? [facility] not available 12/21/2022 Do You Have Moisture Problems In Your Home? No Information not available 12/21/2022 What Was The Date Of Your Most Recent Tobacco Screening? 12/21/2022 Information not available 12/21/2022 Do You Have Any Pets? No Information not available 12/21/2022 Do You Have Smoke And Carbon Monoxide Detectors In Your Home? Yes Information not available 12/21/2022 Are You Passively Exposed To Smoke? No Information no t available 12/21/2022 Do You Use Any Illicit Or Recreational Drugs? No Information not available 12/21/2022 Do You Have Any Dietary Restrictions? No Information not available 12/21/2022 Sex: Unknown Functional Status Question Answer Note LastModified by Organization D etails LastModified Time What is your exercise level? None Information not available 12/21/2022 Mental Status None recorded. Family History Relationship Description Onset Age of this Age Resolved Age Notes LastModified by Organization Details LastModified Time Father Diabetes mellitus [email or web address] Not available 2022 11:33:47 Father Alcoholism Not available 12/21/2022 11:35:35 Mother Diabetes mellitus [email or web address] Not available 2022 11:33:55 Daughter Congestive heart failure [email or web address] Not available 2022 11:35:50 Medical History No medical history recorded. Past Encounters Encounter ID Performer Location Encounter Start Date Encounter Closed Date Diagnosis/Indication Diagnosis SNOMED-CT Code Diagnosis ICD10 Code Diagnosis Note [id number] Harjinder Rivera MD [facility] [address] [address] 12/21/2022 11:14:44 12/22/2022 08:57:03 Sleep apnea 03817473 G47.30 G47.33 G47.36 G47.61 Health Concerns Section Related Observation LastModified by Organization Detai ls LastModified Time None Recorded Concern Status LastModified by Organization Details LastModified Time None Recorded Advance Directives Directive None Recorded Payers Encounter Date Sequence Insurance Name Policy Number Policy Rice Covered Member ID Rice Member ID Guarantor Name 12/21/2022 1 [facility] - DOS ON OR AFTER 2020 - DUAL ELIGIBLE (MEDICARE REPLACEMENT/ ADVANTAGE - HMO) Wing Veloz [id number] Wing Veloz Notes Date Note Type Note Provider Name and Address Organization Details Recorded Time 12/21/2022 text/html Primary care/Ref erring provider: Kina Rosales, [employer] CC: My original CPAP was taken away due to noncompliance. After I moved in to [facility] in 2019, they placed me back on CPAP. At home, the patient sleeps from 12 am to 8 am and wakes up without an alarm. Snoring: heavy, since 1960s.Snorting: noChoking: noCoughing: noGasping: noGagging: noSighing: noWitnessed apnea: yesTwitching or jerking of leg(s), arm(s), body, head: yesTeeth grinding: noTeeth clenching: noSleeptalking: noSleepwalking: noSleep crying: noBedwetting: noTongue/lip/gum/cheek biting: noSleeping with open mouth: yesSleep paralysis: noHypnagogic hallucinations: noHypnopompic hallucinations: noVivid dreams: noDifficulty with sleep onset: yesDifficulty with sleep maintenance: yesSleep interruptions: nocturia x 2Patient wakes up with: fatigueDaytime cataplexy: noMorning hypersomnolence: noAfternoon hypersomnolence: yesCaffeine sources in diet: coffee 1/2 cup per day, soda 1/2 can per day Associated medical and psychiatric conditions:Congestive heart failure: noCoronary artery disease: noMyocardial infarction: noHypertension: yesStroke: noBronchial asthma: noChronic obstructive pulmonary disease: noDepression: yesBipolar disorder: noAnxiety: yesPanic disorder: noPosttraumatic stress disorder: noAttention deficit and hyperactivity disorder: noObsessive Compulsive disorder: noSchizophrenia: noSchizoaffective disorder: noPersonality disorder: noChronic analgesic use: noChronic sedative/hypnotic use: yes melatonin EPWORTH SLEEPINESS SCALE (ESS) CHANCE OF DOZING SCORE0 = would never doze1 = slight chance of dozing2 = moderate chance of dozing3 = high chance of dozing SITUATION AND CHANCE OF DOZINGSitting and reading - 1Watching television - 2Sitting inactive in a public place (e.g. a theater or meeting) - 1As a passenger in a car for an hour without a break - 2Lying down to rest in the afternoon when circumstances permit - 1Sitting and talking to someone - 0Sitting quietly after lunch without alcohol - 2In a car, while stopped for a few minutes in the traffic - 1TOTAL SCORESubjectively, patient has a slight moderate high chance of dozing. Harjinder Rivera MD [address] [place] [address], [id number], [place] [facility] [employer] 12/21/2022 12:15:53
--- OUTSIDE RECORDS SUMMARY | 2024-11-23 15:50 | XMS_ITS ---
Author Organization [facility] ([facility]) Address [address] [place] [id number] Care Team Providers Care Drum Sander Name Role Phone Unavailable Unavailable Unavailable Allergies, Adverse Reactions, Alerts This patient has no known allergies or adverse reactions. Problems This patient has no known problems. Immunizations Ordered Immunization Name Filled Immunization Name Date Status Comments Refusal Reason Covid-19 Vaccination 2021-06-02 08:00:00 Covid-19 Vaccination 2021-04-28 08:00:00
--- OUTSIDE RECORDS SUMMARY | 2024-11-23 15:50 | XMS_ITS | Clinical Summary ---
Author Organization [facility] Address [address] [place] [address] Care Team Providers Care Animal Care Assistant Name Role Phone Jonel Alston MD Primary Care Provider Social History Tobacco Use Types Packs/Day Years Used Date Smoking Tobacco: Never Assessed Sex and Gender Information Value Date Recorded Sex Assigned at Not on file Legal Sex Male 3:09 AM CDT Gender Identity Not on file Sexual Orientation Not on file Plan of Treatment Health Maintenance Due Date Last Done Comments Colorectal Cancer Screening Colonoscopy (10 Years) 1954 Hepatitis C 1972 DTaP, Tdap and Td Vaccines ( 1 - Tdap) 1973 Zoster Vaccines (1 of 2) 2004 Annual Medicare Wellness Visit 2019 Pneumococcal Vaccine: 65+ Ye ars (1 of 1 - PCV) 2019 COVID-19 Vaccine ( - 2023-2 5 season) 2024 Influenza Adult (#1) 2024 RSV Immunization or 60+ Years (1 - 1-dose 75+ series) 2029 Meningococcal B Vaccine Aged Out No l onger eligible based on patient's age to complete this topic Meningococcal Vaccine Aged Out No maria l daly eligible based on patient's age to complete this topic RSV Immunizations Under 20 Months Aged Out No longer eligible based on patient's age to complete this topic Additional Health Concerns Infection Onset Date Last 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 Care Teams Animal Care Assistant Relationship Specialty Start Date End Date Jonel Alston MD PCP - General 04/02/14
--- OUTSIDE RECORDS SUMMARY | 2024-11-23 15:50 | XMS_ITS | Patient Health Summary ---
Author Organization [facility] Address [address] [place] [address] Care Team Providers Care Brazing Furnace Operator Name Role Phone Renato Moctezuma MD Primary Care Provider [phone] Note from [facility],non-owned Affiliates and Associated Physician Practices is amultiple site organization consisting of ambulatory clinics and hospital sitesin [place], [place], [place] and [place]. This disclosure is being madepursuant to the Care Everywhere program and may not contain all information available regarding this patient. Last updated 18.[facility] Allergies * Penicillins(Fever) -Medium Criticality Medications * Be aware that medications may not be up to date on this document. Alwaysverify current medications with the patient. * atorvastatin (LIPITOR) 10 MG tablet(Started 06/05/2020) * buPROPion XL 24hr (WELLBUTRIN-XL) 150 MG tablet(Started 04/27/2021) * clotrimazole-betamethasone (LOTRISONE) 1-0.05 % cream(Started 03/06/2021) * escitalopram (LEXAPRO) 10 MG tablet(Started 06/13/2020) * gabapentin (NEURONTIN) 600 MG tablet(Started 04/24/2021) * insulin aspart (NOVOLOG) vial(Started 05/07/2021) * LANTUS vial(Started 05/13/2021) * HUMALOG KWIKPEN 100 UNIT/ML pen(Started 02/23/2021) * ketoconazole (NIZORAL) 2 % cream(Started 03/09/2021) * VICTOZA 18 MG/3ML pen(Started 04/25/2021) * lisinopril (PRINIVIL; ZESTRIL) 10 MG tablet(Started 05/28/2020) * metFORMIN (GLUCOPHAGE) 1000 MG tablet(Started 04/21/2021) * mirtazapine (REMERON) 30 MG tablet(Started 06/06/2020) * ondansetron, disintegrating, (ZOFRAN ODT) 4 MG tablet(Started 02/04/2021) * pantoprazole EC (PROTONIX) 20 MG tablet(Started 04/22/2021) * SSD 1 % cream(Started 02/10/2021) * traMADol (ULTRAM) 50 MG tablet(Started 01/26/2021) * traZODone (DESYREL) 100 MG tablet(Started 01/20/2021) * potassium chloride ER (KLOR-CON) 20 MEQ tablet Take 60 mEq by mouth once daily * melatonin 3 MG tablet Take 3 mg by mouth at bedtime * ACETAMINOPHEN PO Take 500 mg by mouth * polyethylene glycol 3350 (MIRALAX) 17 GM/SCOOP powder Take 17 g by mouth once daily * Cholecalciferol (VITAMIN D3) 1.25 MG (85480 UT) TABS Take 50,000 Units by mouth every 7 days * metOLazone (ZAROXOLYN) 5 MG tablet Take 5 mg by mouth once daily * Sennosides-Docusate Sodium (SENNA-DOCUSATE SODIUM) 8.6-50 MG * Multiple Vitamin (MULTIVITAMIN ADULT PO) * Cyanocobalamin (VITAMIN B-12 1000 MCG) 1000 MCG SUBL * busPIRone (BUSPAR) 5 MG tablet Take 5 mg by mouth 3 times daily * furosemide (LASIX) 80 MG tablet Take 80 mg by mouth once daily * glipiZIDE CR 24hr (GLIPIZIDE XL) 5 MG tablet Take 5 mg by mouth daily before breakfast * Ascorbic Acid (VITAMIN C) 500 MG Active Problems Problem Noted Date Diagnosed Date [...] Mass Index 38.52 02/02/2022 2:45 PM CDT Procedures * VAS BILAT MAPPING FOR HEMODIALYSIS(Performed 07/21/2021) Performed for ESRD (end stage renal disease) ([facility]) Results * VAS BILAT MAPPING FOR HEMODIALYSIS (07/21/2021 10:37 AM CDT) Anatomical Region Laterality Modality Lower Extremity, Upper Extremity Intravascular Ultrasound 07/21/2021 10:1 4 AM CDT Narrative Procedure Note Sudhir Mccarthy MD - 07/22/2021 Raul Rhodes MD VASCULAR LAB ORDER [facility] Care Teams Brazing Furnace Operator Relationship Specialty Start Date End Date Renato Moctezuma MD [address] [place] [phone] PCP - General 07/07/21
[2024-11-23] MEDS: levoFLOXacin 750 MG/D5W 150 ML 750 MG/150 ML BAG 100 MG IVPB (17:03)
[2024-11-23] MEDS: ONDANSETRON INJ 4 MG/2 ML VIAL IV PUSH (17:31)
[2024-11-23] MEDS: KETOROLAC 15 MG/ML VIAL (*BKC) IV PUSH (17:31)
[2024-11-23] MEDS: LACTATED RINGERS 1,000 ML 999 ML IV CONT (17:34)
--- NOTE | 2024-11-23 23:00 | PC.NURSE ---
This RN called and gave report to pt RN at facility. updated about pt POC and ETA.
== END 2024-11-23 22:55 ==
PROVIDERS: Physician Assistant; Emergency Provider Student in an Organized Health Care Education/Training Program
DX: N39.0 Urinary tract infection, site not specified (principal); K43.9 Ventral hernia without obstruction or gangrene; J69.0 Pneumonitis due to inhalation of food and vomit; Z79.4 Long term (current) use of insulin; G47.33 Obstructive sleep apnea (adult) (pediatric); I25.10 Atherosclerotic heart disease of native coronary artery without angina pectoris; E11.9 Type 2 diabetes mellitus without complications; I10 Essential (primary) hypertension; F41.8 Other specified anxiety disorders; Z86.718 Personal history of other venous thrombosis and embolism
CPT/HCPCS: 36415; 74177; 80053; 81001; 83605; 85025; 85610; 85730; 87086; 87186; 96361; 96365; 96375; 99284; J1885; J1956; J2405; J7120; Q9967

== ENCOUNTER 2024-11-25 13:02 | Emergency (ER) | payer OTHER, SELFPAY ==
[2024-11-25 13:13] VITALS: BP 109/61; PULSE 91; RESP 20; TEMP 36.8; O2SAT 94
--- OUTSIDE RECORDS SUMMARY | 2024-11-25 13:30 | XMS_ITS | Data Portability ---
Author Organization [facility] IP Address [address] [place] [address] Assessment No assessment recorded. Plan of Treatment Reminders Order Date Submit Date Provider Last Modified By Organization Details Last Modified Time Details Appointments None recorded. Lab None recorded. Referral general surgeon referral - Morbid obeisity with vasculopat hy, S/P L BKA, open VHR x 3 with mesh in . Now left of midline hernia. Too complex a pt for [facility]. 2021 022 [email or web address] Not available 12:52:15 Procedures [...] midline hernia. Too complex a pt for [facility]. Referring Physician: Magdiel Holly, General Surgery, Encounter Date: 01/20/2022 Problems Name Problem SNOMED Code Status Onset Date Resolution Date Notes Provider Name and Address Organization Details Recorded Time Type 2 diabetes mellitus 80064567 Active 2021 Magdiel Holly MD [address], [place], [address], [facility] 2 10:51:54 Hernia of anterior abdominal wall 724241217 Active 2021 Magdiel Holly MD [address] [place], [address], [facility] 2 10:52:11 Essential hypertension 54201937 Active 2021 Magdiel Holly MD [address], [place], [address], [facility] 2 10:52:20 Gastroesophage al reflux disease 223671821 Active 2021 Magdiel Holly MD [address], [place], [address], [facility] 2 10:52:27 Hyperlipidemia 93310173 Active 2021 Magdiel Holly MD [address], [place], [address], [facility] 2 10:52:35 Problem Notes None recorded. Procedures Surgical History Date Name Laterality Status Provider Name and Address Organization Details Recorded Time [facility] 10:42:58 hernia repair completed Beatriz [facility] 10:43:05 hernia repair completed [facility] 10:43:12 Imaging Results None recorded. Procedure Notes None recorded. Medical Equipment None Reported. Allergies Allergen ID Allergen Name Allergen Category Reaction Reaction Severity Criticality Documentation Date Start Date Code Code System Note Provider Name and Address Organization Details Recorded Time 503004 Product containin g penicilli n and antibioti c (product) medicatio n other Not available Not available 01/20/2022 85531 05 SNOMED Not Available Not Available Not [...] % 121 mm[Hg] 56 mm[Hg] Beatriz Dial[place] - [facility] 2 10:46:28 Social History Question Answer Notes LastModified by Organizat ion Details LastModified Time Tobacco Smoking Status Never Smoker Beatriz bueno [place] - [facility] 01/20/2022 10:42:30 Do You Have An Advance Directive? No Information not available 01/20/2022 Do You Have A Medical Power Of Condominium Property Manager? No Information not available 01/20/2022 What Is Your Relationship Status? Information not available 01/20/2022 Sex: Unknown Functional Status None recorded. Mental Status None recorded. Family History Nothing Reported. Medical History Condition Response Diabetes Y Gout N Bleeding Disorder N Arthritis Y Seizures/Epilepsy N High Cholesterol N Liver Disease N Stroke N Asthma N COPD N Kidney Disease N Past Encounters Encounter ID Performer Location Encounter Start Date Encounter Closed Date Diagnosis/Indication Diagnosis SNOMED-CT Code Diagnosis ICD10 Code Diagnosis Note [id number] Magdiel Holly MD [facility] [address] [place] [address] 01/20/2022 10:33:04 01/21/2022 14:21:25 Recurrent hernia of anterior abdominal wall 246531175 K43.9 1) large-neck ed hernia, low risk for incarcerat ion/kevin ulation2) patient with several complicati ng comorbidit ies, including DM, vasculopat hy, and morbid3) repair will likely need to involve complex techniques , possible componant separation , and may involve a prolonged hospital stay to ensure success and patient safety4) give all of the above, I do not feel that surgery at [facility] is in the patient's best interest given the lack of intensive care services and other advanced care services at our facility. He will be best served at a tertiary care center with a surgery team more versed in complex hernia repair. I will refer to [facility] surger. Health Concerns Section Related Observation LastModified by Organization Detai ls LastModified Time None Recorded Concern Status LastModified by Organization Details LastModified Time None Recorded Advance Directives Directive N: Payers Encounter Date Sequence Insurance Name Policy Number Policy Rice Covered Member ID Rice Member ID Guarantor Name 01/20/2022 1 [facility] - DOS ON OR AFTER 2020 - DUAL ELIGIBLE (MEDICARE REPLACEMENT/A DVANTAGE - HMO) [id number] Wing Veloz [id number] Wing Veloz Notes Date Note Type [...] no vomiting; no swelling/redness Magdiel Holly MD [address], [place], [address], [facility] 01/20/2022 11:13:15
--- OUTSIDE RECORDS SUMMARY | 2024-11-25 13:30 | XMS_ITS | Clinical Summary ---
Author Organization [facility] Address [address] [place] [id number] Care Team Providers Care Optimization Analyst Name Role Phone Renato Moctezuma MD Primary Care Provider [phone] Source Comments [facility],non-owned Affiliates and Associated Physician Practices is amultiple site organization consisting of ambulatory clinics and hospital sitesin [place], [place], [place] and [place]. This disclosure is being madepursuant to the [facility] Everywhere program and may not contain all information available regarding this patient. Last updated 18.[facility] [place] Allergies Active Allergy Reactions Criticality Noted Date [...] daily Active Cholecalciferol (VITAMIN D3) 1.25 MG (58200 UT) TABS Take 50,000 Units by mouth [...] age to complete this topic Care Teams Optimization Analyst Relationship Specialty Start Date End Date Renato Moctezuma MD [address] [address] PCP - General 07/07/21
--- OUTSIDE RECORDS SUMMARY | 2024-11-25 13:30 | XMS_ITS | Clinical Summary ---
Author Organization [facility] Address [address] [place] [address] Care Team Providers Care Bellman Name Role Phone Jonel Alston MD Primary [...] Date Last Indicated MRSA 05/23/2017 05/23/2017 [facility] Care Teams Bellman Relationship Specialty Start Date End Date Jonel Alston MD PCP - General 04/02/14
--- OUTSIDE RECORDS SUMMARY | 2024-11-25 13:30 | XMS_ITS | Referral Summary ---
Author Organization [facility] Address [address] [place] [address] Care Team Providers Care Harvest Worker Field Crop Name Role Phone Renato Moctezuma MD Primary Care Provider [phone] Source Comments [facility],non-owned Affiliates and Associated Physician Practices is amultiple site organization consisting of ambulatory clinics and hospital sitesin [place], [place], [place] and [place]. This disclosure is being madepursuant to the [facility] Everywhere program and may not contain all information available regarding this patient. Last updated 18.[facility] [employer] Allergies Active Allergy Reactions Criticality Noted Date [...] daily Active Cholecalciferol (VITAMIN D3) 1.25 MG (49100 UT) TABS Take 50,000 Units by mouth [...] of Treatment Not on file Care Teams Harvest Worker Field Crop Relationship Specialty Start Date End Date Renato Moctezuma MD [address] [place] [phone] PCP - General 07/07/21
--- OUTSIDE RECORDS SUMMARY | 2024-11-25 13:30 | XMS_ITS | Encounter Summary ---
Author Organization [facility] Address [address] [place] [address] Phone Care Team Providers Care Principal Cloud Architect Name Role Phone Unknown, Notinfalycia Primary Care Provider Unavail able Trevor Moctezuma MD Primary Care Provider [phone] Encounter Details Date Type Department Care Team (Latest Contact Info) Description 11/21/2017 Orders Only [facility] CONVERSION Scanning, Provider Social History Tobacco Use Types Packs/Day Years Used Date Smoking Tobacco: Never Assessed Sex and Gender Information Value Date Recorded Sex Assigned at Not on file Legal Sex Male 7:06 PM SOCIAL WORK MSW Gender Identity Not on file Sexual Orientation Not on file documented as of this encounter Plan of Treatment Not on file documented as of this encounter Procedures Procedure Name Priority Date/Time Associated Diagnosis Comments VASCULAR LABORATORY REPORT 11/21/2017 4:13 PM SOCIAL WORK MSW documented in this encounter Results * VASCULAR LABORATORY REPORT (11/21/2017 4:13 PM SOCIAL WORK MSW) Anatomical Region Laterality Modality Ultrasound us Provider Scanning CV VASCULAR PROCEDURES Final R esult documented in this encounter Visit Diagnoses Not on filedocumented in this encounter Additional Health Concerns Infection Onset Date Last Indicated Resolved Time MRSA 01/15/2016 01/14/2016 06/03/2021 5:00 AM CDT documented as of this encounter Care Teams Principal Cloud Architect Relationship Specialty Start Date End Date Unknown, Dilip PCP - General 11/15/17 04/14/20 Trevor Moctezuma MD [address] [place] [address] PCP - General Pediatrics 04/15/20 documented as of this encounter
--- OUTSIDE RECORDS SUMMARY | 2024-11-25 13:30 | XMS_ITS | Referral Summary ---
Author Organization [facility] Address [address] [place] [address] Care Team Providers Care Nuclear Plant Equipment Operator Name Role Phone Trevor Moctezuma MD Primary Care Provider [phone] Allergies Active Allergy Reactions Criticality Noted Date Comments Penicillins Fever Medium 03/22/2018 Medications acetaminophen (TYLENOL) 500 mg tablet Take 1 tablet (500 mg total) by mouth every 6 (six) hours as needed 12/23/19 18 Active senna-docusat e (PERICOLACE) 8.6-50 mg Take 1 tablet by mouth daily 12/23/19 18 Active multivitamin, zv-ybur-ebzap als tablet Take 1 tablet by mouth [...] drink = 0.6 oz pur e alcohol) [facility] Utilities Answer Date Recorded In the past [...] often do you attend chur ch or jehovah's witness services? Never 08/14/2024 Do you belong to any clubs o r organizations such as restorationist groups, unions, fraternal or athletic groups, or [...] any time in the past 12 m [facility], were you homeless or living in a retirement (including now)? No 08/14/2024 Personal Safety Answer Date Recorded Have you ever been in or are you currently in a harmful physical or emotional relationship or is someone making you feel afraid or unsafe? Denies 08/13/2024 Sex and Gender Information Value Date Recorded Sex Assigned at Not on file Legal Sex Male 7:06 PM BUILDING ARCHITECT Gender Identity Not on file Sexual Orientation [...] - 3.9 ng/mL 03/01/2014 9:24 AM CDT [email or web address] HISTORICAL RESULTS Comment: Method: ECLIA Values obtained by different assay methods cannot be used interchangeably. Use sequential testing to confirm baseline if assay method changed during patient monitoring. 03/01/2014 8:12 AM CDT 03/01/2014 8:32 AM CDT Narrative [facility] [email or web address] HISTORICAL RESULTS - 03/01/2014 9:24 AM CDT PT HAS BEEN FASTING FOR 8 HOURS us Jonel Alston MD LAB BLOOD ORDERABLES Final Result [email or web address] HISTORICAL RESULTS from Last 3 Months or Most Recently Relevant to Health Maintenance Insurance MEDICARE IDPA [facility] [place]AN [place] [facility] [place] [facility] [place] [facility] Advance Directives For more information, please contact: [phone] Documents on File Type Date Recorded Patient Employment Agency Manager Expl anation ADVANCE DIRECTIVE 11/26/2013 12:00 AM NORA R OF FLOOR TRADER FINANCIAL/MEDICAL * Full Code (Latest Code Status on File) Date Activated Date Inactivated Comments 08/13/2024 11:45 PM 08/14/2024 7:25 PM Care Teams Nuclear Plant Equipment Operator Relationship Specialty Start Date End Date Trevor Moctezuma MD [address] [place] [address] PCP - General Pediatrics 04/15/20
--- OUTSIDE RECORDS SUMMARY | 2024-11-25 13:30 | XMS_ITS | Clinical Summary ---
Author Organization [facility] Address [address] [place] [address] Care Team Providers Care Technical Sales Director Name Role Phone Trevor Moctezuma MD Primary Care Provider [phone] Allergies Active Allergy Reactions Criticality Noted Date Comments Penicillins Fever Medium 03/22/2018 Medications acetaminophen (TYLENOL) 500 mg tablet Take 1 tablet (500 mg total) by mouth every 6 (six) hours as needed 12/23/19 18 Active senna-docusat e (PERICOLACE) 8.6-50 mg Take 1 tablet by mouth daily 12/23/19 18 Active multivitamin, yi-olph-acwlz als tablet Take 1 tablet by mouth [...] drink = 0.6 oz pur e alcohol) [facility] Utilities Answer Date Recorded In the [...] often do you attend chur ch or pentecostalism services? Never 08/14/2024 Do you belong to any clubs o r organizations such as judaism groups, unions, fraternal or athletic groups, or [...] any time in the past 12 m [facility], were you homeless or living in a senior care (including now)? No 08/14/2024 Personal Safety Answer Date Recorded Have you ever been in or are you currently in a harmful physical or emotional relationship or is someone making you feel afraid or unsafe? Denies 08/13/2024 Sex and Gender Information Value Date Recorded Sex Assigned at Not on file Legal Sex Male 7:06 PM CREDIT ADVISOR Gender Identity Not on file Sexual Orientation [...] - 3.9 ng/mL 03/01/2014 9:24 AM CDT [facility] [employer] HISTORICAL RESULTS Comment: Method: ECLIA Values obtained by different assay methods cannot be used interchangeably. Use sequential testing to confirm baseline if assay method changed during patient monitoring. 03/01/2014 8:12 AM CDT 03/01/2014 8:32 AM CDT Narrative [facility] [employer] HISTORICAL RESULTS - 03/01/2014 9:24 AM CDT PT HAS BEEN FASTING FOR 8 HOURS us Jonel Alston MD LAB BLOOD ORDERABLES Final Result [facility] [employer] HISTORICAL RESULTS from Last 3 Months or Most Recently Relevant to Health Maintenance Insurance [facility] MEDICARE IDPA [facility] Advance Directives For more information, please contact: [phone] Documents on File Type Date Recorded Patient Him Manager Expl anation ADVANCE DIRECTIVE 11/26/2013 12:00 AM NORA Bautista OF [employer] ATTENDANT FINANCIAL/MEDICAL * Full Code (Latest Code Status on File) Date Activated Date Inactivated Comments 08/13/2024 11:45 PM 08/14/2024 7:25 PM Care Teams Technical Sales Director Relationship Specialty Start Date End Date Trevor Moctezuma MD [address] [place] [address] PCP - General Pediatrics 04/15/20
--- OUTSIDE RECORDS SUMMARY | 2024-11-25 13:30 | XMS_ITS | Patient Health Summary ---
Author Organization [facility] Address [address] [place] [address] Care Team Providers Care Hotbed Operator Name Role Phone Renato Moctezuma MD Primary Care Provider Note from [facility],non-owned Affiliates and Associated Physician Practices is amultiple site organization consisting of ambulatory clinics and hospital sitesin [place], [place], [place] and [place]. This disclosure is being madepursuant to the Care Everywhere program and may not contain all information available regarding this patient. Last updated 18.[facility] Allergies * Penicillins(Fever) -Medium Criticality Medications [...] daily * Cholecalciferol (VITAMIN D3) 1.25 MG (41626 UT) TABS Take 50,000 Units by mouth [...] Performed for ESRD (end stage renal disease) ([facility]) Results * VAS BILAT MAPPING FOR HEMODIALYSIS (07/21/2021 10:37 AM CDT) Anatomical Region Laterality Modality Lower Extremity, Upper Extremity Intravascular Ultrasound 07/21/2021 10:1 4 AM CDT Narrative Procedure Note Sudhir Mccarthy MD - 07/22/2021 Raul Rhodes MD VASCULAR LAB ORDER GALLO Care Teams Hotbed Operator Relationship Specialty Start Date End Date Renato Moctezuma MD [address] [place] [phone] PCP - General 07/07/21
--- OUTSIDE RECORDS SUMMARY | 2024-11-25 13:31 | XMS_ITS | Data Portability ---
Author Organization [facility] [employer], Main Office Address [address] [place] [address] Assessment Encounter Date Assessment Date Assessment LastModified by Organization Details LastModified Time 12/21/2022 12/21/2022 Assessment: TAWANDA PLMD Hypoventilation Plan: The following were reviewed and explained to the patient: primary care/referral note We will try to obtain old sleep studies from [facility] from around 1989. General information on sleep [...] 6 yrs or older 023 12/22/19 23 [facility], [address] [place], [address], 05:02:15 Medication Orders None recorde d. Patient TargetsNo targets recorded. Patient InstructionsNo instructions recorded. Reason for Referral None Reported. Problems Name Problem SNOMED Code Status Onset Date Resolution Date Notes Provider Name and Address Organization Details Recorded Time Sleep apnea 47544635 Active 023 Harjinder Rivera MD [address] [facility] [facility] [address], [place], [address] , [employer] 12/21/2022 11:39:07 Notes:Medical History: Depre ssion/Anxiety Obesity with TAWANDA Hypertension Hyperlipidemia T2DM with neuropathy THAD PVD Stasis dermatitis Vit D deficiency Procedure History: T&A 1969 LLQ ventral herniorrhaphies 1984, 1985, 1986 Left BKA 2019 Problem Notes None recorded. Procedures Surgical History Date Name Laterality Status Provider Name and Address Organization Details Recorded Time Hernia Surgery completed Savita Hall MA [employer] 12/21/2022 11:43:42 Hernia Surgery completed Savita Hall MA [employer] 12/21/2022 11:43:43 Hernia Surgery completed Savita Hall MA [employer] 12/21/2022 11:43:44 Imaging Results None recorded. Procedure Notes None recorded. Medical Equipment None Reported. Allergies Allergen ID Allergen Name Allergen Category Reaction Reaction Severity Criticality Documentation Date Start Date Code Code System Note Provider Name and Address Organization Details Recorded Time 42210 Product containin g penicilli n and antibioti c (product) medicatio n fever Not available Not available 12/21/2022 56042 05 SNOMED Harjinder Rivera MD [address] [facility] [facility] [address], [place], [address] , [facility] [employer] 11:32:06 Medications Name Sig Start Date Stop [...] Updated DateTime 3 187.96 cm 38.5 kg/m2 378420. 71 g 98.5 [degF] 93 /min 98 % 98 % 128 mm[Hg] 70 mm[Hg] Savita Hall MA [place] - [facility] [employer] 3 11:47:07 Date Recorded Heart rate Respiratory rate Provider N elaine and Address Organization Details Last Updated DateTime 12/21/2022 93 /min 15 /min Harjinder Rivera MD [address], [place], [address], [place] [employer] [facility] [employer] 12/21/2022 11:46:23 Social History Question Answer Notes LastModified by Organizat ion Details LastModified Time Tobacco Smoking Status Never Smoker Savita Hall MA null, [place] [employer] 12/21/2022 11:41:50 What Is Your Level Of [...] not available 12/21/2022 Where Do You Live[facility] not available 12/21/2022 Do You [...] SNOMED-CT Code Diagnosis ICD10 Code Diagnosis Note [id number] Harjinder Rivera MD [facility] [address] [address] 12/21/2022 11:14:44 12/22/2022 08:57:03 Sleep apnea 60784539 G47.30 G47.33 G47.36 G47.61 Health Concerns Section Related Observation LastModified by Organization Detai ls LastModified Time None Recorded Concern Status LastModified by Organization Details LastModified Time None Recorded Advance Directives Directive None Recorded Payers Encounter Date Sequence Insurance Name Policy Number Policy Rice Covered Member ID Rice Member ID Guarantor Name 12/21/2022 1 [facility] - DOS ON OR AFTER 2020 - DUAL ELIGIBLE (MEDICARE REPLACEMENT/ ADVANTAGE - HMO) Wing Veloz [id number] Wing [employer] Notes Date Note Type Note Provider Name and Address Organization Details Recorded Time 12/21/2022 text/html Primary care/Ref erring provider: Kina Rosales, CUSTOMER SERVICE ASSOCIATE-C CC: My original CPAP was taken away due to noncompliance. After I moved in to [facility] in 2019, they placed me back [...] high chance of dozing. Harjinder Rivera MD [address] [place] [address], [phone], [place] [facility] [employer] 12/21/2022 12:15:53
--- OUTSIDE RECORDS SUMMARY | 2024-11-25 13:31 | XMS_ITS | Clinical Summary ---
Author Organization [facility] Address [address] [place] [address] Phone Care Team Providers Care Tree Farmer Name Role Phone Renato Moctezuma MD Primary [...] 05/07/2021 Active ergocalciferol (VITAMIN D-2) 1.25 MG (90205 UT) capsule Take 1 capsule by mouth [...] Influenza Vaccine (#1) 2024 08/31/2021 Care Teams Tree Farmer Relationship Specialty Start Date End Date Renato Moctezuma MD [address] [place] [address] PCP - General Internal Medicine 02/18/22
[2024-11-25 14:02] LABS: Basophils Percent Auto 0.4 % (0.2-1.2); Eosinophils Absolute Auto 0.4 K/mm3 (0-0.3); Eosinophils Percent Auto 4.5 % (0-4.4); Hematocrit 38.5 % (42.0-52.0); Hemoglobin 12.1 g/dL (14.0-18.0); Immature Granulocyte Absolute 0.04 K/mm3 (0.00-0.031); Immature Granulocyte Percent A 0.5 % (0-0.5); Lymphocytes Absolute Auto 1.97 K/mm3 (0.9-3.2); Lymphocytes Percent Auto 23.4 % (18.3-44.2); Mean Corpuscular HGB Conc 31.4 g/dl (32-36); Mean Corpuscular Volume 98.7 fl (80-100); Mean Platelet Volume 8.5 fl (7.4-10.4); Monocytes Absolute Auto 1.1 K/mm3 (0.1-0.6); Monocytes Percent Auto 12.8 % (2.6-8.5); Neutrophils Absolute Auto 4.9 K/mm3 (1.3-6.7); Neutrophils Percent Auto 58.4 % (45.5-73.1); Platelet Count Result 185 k/mm3 (150-375); Red Cell Distribution Width 13.6 % (11.5-14.5); White Blood Count 8.4 K/mm3 (4.5-10.0)
[2024-11-25 14:12] LABS: Alanine Aminotransferase 15 U/L (6-50); Albumin Level 3.6 g/dL (3.5-5.1); Alkaline Phosphatase 95 U/L (38-126); Anion Gap 6 mmol/L (4-12); Aspartate Amino Transferase 17 U/L (17-59); Bilirubin,Total 0.5 mg/dL (0.2-1.3); Blood Urea Nitrogen 26 mg/dL (9-20); Calcium 9.2 mg/dL (8.4-10.2); Carbon Dioxide 29 mmol/L (22-30); Chloride 101 mmol/L (98-107); Estimated CRCL calculation 58 ml/min; Estimated Glomerular Filt Rate 59; Glucose 152 mg/dL (65-110); Sodium 136 mmol/L (137-145)
[2024-11-25 14:15] VITALS: BP 124/72; PULSE 70; RESP 16; O2SAT 95
--- NOTE | 2024-11-25 14:24 | ED_ITS ---
HPI - General Adult General Chief complaint: Wound/Laceration Stated complaint: wound pain Time Seen by Provider: 11/25/24 13:15 History of Present Illness HPI narrative: 69-year-old male presented to the emergency department for evaluation for chronic excoriation of his buttock. Patient does have a left BKA and is often bedbound. Patient states he does roll on to the side often. Patient states that a care facility and does have a wound care nurse. Patient wanted to be evaluated emergency department as he did feel that the nursing staff was did have to care for his wound. Upon arrival to the emergency department patient was wearing a dry clean diaper and the buttocks was battered and dry. No evidence of cellulitis. Area is slightly erythematous and excoriated but appears to be well treated for. Patient denies any other pain complaint. Related Data Home Medications ?Medication ?Instructions ?Recorded ?Confirmed ?Last Taken ?Type acetaminophen 500 mg tablet 500 mg PO Q6H PRN Pain 11/14/19 05/29/23 Unknown History (Acetaminophen Extra Strength) ergocalciferol (vitamin D2) 1,250 50,000 unit PO WEEKLY 11/14/19 05/29/23 03/02/21 History mcg (50,000 unit) capsule (Vitamin D2) escitalopram oxalate 10 mg tablet 10 mg PO DAILY 11/14/19 11/23/24 Unknown History escitalopram oxalate 5 mg tablet 5 mg PO DAILY 11/14/19 11/23/24 Unknown History multivit,tx with iron 27 1 tablet PO DAILY 11/14/19 05/29/23 Unknown History ji-fchmqew-iulls acid 0.4 mg-minerals tablet (Therapeutic-M Vitamin/Minerals) sennosides 8.6 mg-docusate sodium 1 tab-cap PO DAILY 04/14/20 11/23/24 Unknown History 50 mg tablet (Senexon-S) sodium chloride 0.65 % nasal spray 1 spray intranasal Q4H PRN Nasal 04/15/20 05/29/23 Unknown History aerosol (Saline Nasal Mist) Congestion buspirone 5 mg tablet 5 mg PO DAILY 03/03/21 05/29/23 Unknown History bupropion HCl 150 mg 24 hr tablet, 150 mg PO DAILY 05/16/21 05/29/23 Unknown History extended release (Wellbutrin XL) furosemide 80 mg tablet 80 mg PO BID 09/22/22 05/29/23 Unknown History glipizide 10 mg tablet 20 mg PO BID 09/22/22 11/23/24 Unknown History guaifenesin 600 mg tablet, 600 mg PO Q12-24H 09/22/22 05/29/23 Unknown History extended release 12 hr (Mucinex) insulin glargine 100 unit/mL (3 90 unit subcut BID 09/22/22 05/29/23 Unknown History mL) subcutaneous pen (Basaglar KwikPen U-100 Insulin) magnesium hydroxide 400 mg/5 mL 30 ml PO DAILY PRN Constipation 09/22/22 05/29/23 Unknown History oral suspension (Milk of Magnesia) metolazone 5 mg tablet 2.5 mg PO HS 09/22/22 05/29/23 Unknown History potassium chloride 20 mEq 80 meq PO TID 09/22/22 05/29/23 Unknown History tablet,extended release trazodone 50 mg tablet 50 mg PO HS Insomnia 09/22/22 05/29/23 Unknown History ascorbic acid (vitamin C) 500 mg 500 mg PO BID 05/29/23 05/29/23 Unknown History tablet atorvastatin 10 mg tablet 10 mg PO HS 05/29/23 05/29/23 Unknown History diclofenac sodium 1 % topical gel 4 g topical DAILY 05/29/23 05/29/23 Unknown History famotidine 20 mg tablet 20 mg PO DAILY 05/29/23 11/23/24 Unknown History insulin aspart U-100 100 unit/mL See Rx Instructions .Route .COMPLEX 05/29/23 05/29/23 Unknown History (3 mL) subcutaneous pen (Novolog FlexPen U-100 Insulin aspart) magnesium oxide 400 mg PO DAILY 05/29/23 11/23/24 Unknown History melatonin 3 mg tablet 3 mg PO HS 05/29/23 05/29/23 Unknown History menthol 0.44 %-zinc oxide 20.6 % 1 applic topical QAM AND QPM 05/29/23 05/29/23 Unknown History topical ointment (Calmoseptine) polyethylene glycol 3350 17 gram 17 g PO DAILY PRN Constipation 05/29/23 05/29/23 Unknown History oral powder packet (Miralax) semaglutide 0.25 mg or 0.5 mg (2 0.5 mg subcut WEEKLY 08/13/23 08/13/23 Unknown History mg/3 mL) subcutaneous pen injector (Ozempic) Allergies Allergy/AdvReac Type Severity Reaction Status Date / Time Penicillins AdvReac Unknown Fever Verified 11/23/24 15:34 Review of Systems 2 Review of Systems: All systems reviewed & are unremarkable except as noted in HPI and below PMFSH Past Medical History Medical History Depression with anxiety Chronic stasis dermatitis Obstructive sleep apnea Noncompliant with CPAP. History of deep venous thrombosis Coronary artery disease Ventral hernia Chronic large left lower quadrant ventral hernia Chronic anemia Insulin dependent type 2 diabetes mellitus Hemoglobin A1c 9.2 Peripheral vascular disease Hypertension Surgical History Surgical History History of tonsillectomy Status post herniorrhaphy Ventral hernia repair x3. Status post below-knee amputation of left lower extremity Family History Family History Father , at age 69 Diabetes mellitus Family history of alcoholism Mother Diabetes mellitus Sibling Family history of emphysema Social History Social History Social History: The patient has been at [facility] and [facility] for several years. Before that he was living with his mother in [place]. He is on disability. He had 2 daughters, one at the age of 34 from an PA. He is a lifelong non-smoker. A former heavy drinker though he has abstained since moving to the rehab center. He denies illicit drug use. Patient wishes to be a full code. His anffl-kv-woozlfso is his mother, Nicolle Veloz. Smoking status: Never smoker Alcohol intake: never Drinks per week: 50 Substance use: never Lack of Transportation: No Lack of Food: Never True Current Housing: I Have Housing Concerned About Future Housing: No Difficulty Paying Gas/Electric Bills: No Difficulty Paying for Meds: No Currently Unemployed: No Education: Grade School Difficulty w/ Childcare or Family Care: No Living arrangements: skilled nursing Gender identity (if verbalized by the patient): Male Spiritual care concerns: No Exam 2 Narrative: APPEARANCE: Well appearing, no pain, no distress, well-nourished. HEAD: normocephalic, atraumatic. EYES: PERRLA/EOMI, conjunctivae clear. NOSE: Normal no drainage EARS:TMS clear with good light reflex. THROAT: Pharynx clear, no exudate. NECK: Supple. No adenopathy, no masses. RESPIRATORY: Airway patent, respirations nonlabored. Clear to auscultation bilaterally, no rales, rhonchi, wheezing. CARDIOVASCULAR: Regular rate and rhythm without murmurs rubs or gallops. ABDOMINAL: Soft, nontender, nondistended, normal bowel sounds MUSCULOSKELETAL: No acute abnormality NEURO: Alert. Cranial nerves II through XII intact. Good gait. Good coordination SKIN: Excoriation on for gluteal cleft and on to posterior thighs, no evidence of cellulitis Course Vital Signs Vital signs: Vital Signs Temperature 98.3 F 11/25/24 13:13 Pulse Rate 91 11/25/24 13:13 Respiratory Rate 20 11/25/24 13:13 Blood Pressure 109/61 11/25/24 13:13 Pulse Oximetry 94 11/25/24 13:13 Oxygen Delivery Room Air 11/25/24 13:13 Temperature 98.3 F 11/25/24 13:13 Pulse Rate 70 11/25/24 14:15 Respiratory Rate 16 11/25/24 14:15 Blood Pressure 124/72 11/25/24 14:15 Pulse Oximetry 95 11/25/24 14:15 Oxygen Delivery Room Air 11/25/24 13:13 Medical Decision Making [facility] Narrative Medical decision making narrative: 69-year-old male presents emergency department for evaluation chronic wound to his buttocks. Wound was well-appearing is not appear to be cellulitic. Patient does have close follow-up with a wound care nurse at his facility. Patient was afebrile with no leukocytosis and no acute abnormalities on his CMP. Patient was encouraged to continue to roll himself to avoid excessive pressure on his buttocks. All questions concerns were addressed. Patient was well-appearing at time of discharge. Differential Diagnosis Differential Diagnosis: Candidiasis, cellulitis, pressure ulcer Vital Signs Vital Signs: Vital Signs Temperature 98.3 F 11/25/24 13:13 Pulse Rate 91 11/25/24 13:13 Respiratory Rate 20 11/25/24 13:13 Blood Pressure 109/61 11/25/24 13:13 Pulse Oximetry 94 11/25/24 13:13 Oxygen Delivery Room Air 11/25/24 13:13 Temperature 98.3 F 11/25/24 13:13 Pulse Rate 70 11/25/24 14:15 Respiratory Rate 16 11/25/24 14:15 Blood Pressure 124/72 11/25/24 14:15 Pulse Oximetry 95 11/25/24 14:15 Oxygen Delivery Room Air 11/25/24 13:13 Lab Data Lab results reviewed: Yes I reviewed the patient's lab results. 11/25/24 13:50 11/25/24 13:50 Labs: Lab Results 11/25/24 Range/Units 13:50 WBC 8.4 (4.5-10.0) K/mm3 RBC 3.90 L (4.6-6.20) M/mm3 Hgb 12.1 L (14.0-18.0) g/dL Hct 38.5 L (42.0-52.0) % MCV 98.7 (80-100) fl MCH 31.0 (26-34) pg MCHC 31.4 L (32-36) g/dl RDW 13.6 (11.5-14.5) % Plt Count 185 (150-375) k/mm3 MPV 8.5 (7.4-10.4) fl Immature Gran % (Auto) 0.5 (0-0.5) % Neut % (Auto) 58.4 (45.5-73.1) % Lymph % (Auto) 23.4 (18.3-44.2) % Ogle % (Auto) 12.8 H (2.6-8.5) % Eos % (Auto) 4.5 H (0-4.4) % Baso % (Auto) 0.4 (0.2-1.2) % Lymph # (Auto) 1.97 (0.9-3.2) K/mm3 Ogle # (Auto) 1.1 H (0.1-0.6) K/mm3 Eos # (Auto) 0.4 H (0-0.3) K/mm3 Baso # (Auto) 0.0 (0.0-0.1) K/mm3 Abs Immat Gran (auto) 0.04 H (0.00-0.031) K/mm3 Absolute Neuts (auto) 4.9 (1.3-6.7) K/mm3 Absolute Nucleated RBC 0.000 (0.0-0.012) K/mm3 Nucleated RBC % 0.0 (0.0-0.2) % Sodium 136 L (137-145) mmol/L Potassium 5.0 (3.4-5.0) mmol/L Chloride 101 (98-107) mmol/L Carbon Dioxide 29 (22-30) mmol/L Anion Gap 6 (4-12) mmol/L BUN 26 H (9-20) mg/dL Creatinine 1.22 (0.7-1.3) mg/dL Estim Creat Clear Calc 58 ml/min Estimated GFR 59 (59 - ) Glucose 152 H (65-110) mg/dL Calcium 9.2 (8.4-10.2) mg/dL Total Bilirubin 0.5 (0.2-1.3) mg/dL AST 17 (17-59) U/L ALT 15 (6-50) U/L Alkaline Phosphatase 95 (38-126) U/L Total Protein 7.0 (6.3-8.2) g/dL Albumin 3.6 (3.5-5.1) g/dL Discharge Plan Discharge Clinical Impression: Chronic excoriation Patient Disposition: NH Residential/Asst Living Condition: Stable Instructions: Antibiotic Form, Chronic Wounds (ED) Additional Instructions: Continue to have wound care at your care facility. If you are able to roll onto your sides more frequently this may give the skin your buttocks time to heal. Have close follow-up with your facility physician. Patient Language: Spanish Prescriptions: No Action acetaminophen [Acetaminophen Extra Strength] 500 mg Tablet 500 mg PO Q6H PRN (Reason: Pain) Therapeutic-M Vitamin/Minerals 27-0.4 mg Tablet 1 tablet PO DAILY escitalopram oxalate 10 mg tablet 10 mg PO DAILY Rx Instructions: take with 5mg tablet escitalopram oxalate 5 mg tablet 5 mg PO DAILY Rx Instructions: take with 10 mg tablet ergocalciferol (vitamin D2) [Vitamin D2] 1,250 mcg (50,000 unit) Capsule 50,000 unit PO WEEKLY Rx Instructions: pt takes on Tuesday sennosides-docusate sodium [Senexon-S] 8.6-50 mg Tablet 1 tab-cap PO DAILY Saline Nasal Mist 0.65 % Aerosol,[place] 1 spray INTRANASAL Q4H PRN (Reason: Nasal Congestion) buspirone 5 mg Tablet 5 mg PO DAILY mecobalamin (vitamin B12) 1,000 mcg tablet,disintegrating 1,000 mcg sublingual DAILY Qty: 30 0RF Rx Instructions: place tablet under tongue and allow to dissolve for at least30 secs before swallowing glipizide 10 mg Tablet 20 mg PO BID potassium chloride 20 mEq Tablet Extended Release 80 meq PO TID insulin glargine [Basaglar KwikPen U-100 Insulin] 100 unit/mL (3 mL) Insulin Pen 90 unit SUBCUT BID guaifenesin [Mucinex] 600 mg Tablet Extended Release 12hr 600 mg PO Q12-24H Rx Instructions: every 12 hours metolazone 5 mg Tablet 2.5 mg PO HS furosemide 80 mg Tablet 80 mg PO BID trazodone 50 mg Tablet 50 mg PO HS magnesium hydroxide [Milk of Magnesia] 400 mg/5 mL Suspension 30 ml PO DAILY PRN (Reason: Constipation) bupropion HCl [Wellbutrin XL] 150 mg Tablet Extended Release 24 Hr 150 mg PO DAILY hydrocodone-acetaminophen 5-325 mg tablet 1 tablet PO Q6H PRN (Reason: pain) 3 Days Qty: 12 0RF polyethylene glycol 3350 [Miralax] 17 gram Powder In Packet 17 g PO DAILY PRN (Reason: Constipation) atorvastatin 10 mg tablet 10 mg PO HS melatonin 3 mg Tablet 3 mg PO HS famotidine 20 mg tablet 20 mg PO DAILY ascorbic acid (vitamin C) 500 mg Tablet 500 mg PO BID insulin aspart U-100 [Novolog FlexPen U-100 Insulin] 100 unit/mL (3 mL) insulin pen See Rx Instructions .ROUTE .COMPLEX Rx Instructions: 56 units subQ in the AM, 65 units subQ at lunch, and 56 units subQ in the evening diclofenac sodium 1 % gel 4 g TOPICAL DAILY Rx Instructions: apply to right knee and right shoulder menthol-zinc oxide [Calmoseptine] 0.44-20.6 % Ointment 1 applic TOPICAL QAM AND QPM Rx Instructions: and as needed, apply to buttocks magnesium oxide 400 mg magnesium Tablet 400 mg PO DAILY Ozempic 0.25 mg or 0.5 mg (2 mg/3 mL) pen injector 0.5 mg SUBCUT WEEKLY Rx Instructions: for four weeks. started dose on 05/13 doxycycline hyclate 100 mg capsule 100 mg PO DAILY Qty: 7 0RF dicyclomine 20 mg tablet 20 mg PO TID PRN (Reason: abdominal pain) Qty: 14 0RF ondansetron 4 mg tablet,disintegrating 4 mg PO Q8H PRN (Reason: nausea and vomiting) Qty: 10 0RF levofloxacin 750 mg tablet 750 mg PO DAILY 5 Days Qty: 5 0RF Follow-up/Referrals: PHYSICIAN NOT ON STAFF,NONSTAFF [Primary Care Provider] -
--- NOTE | 2024-11-25 15:27 | PC.NURSE ---
pt used call light to request food. pt given turkey sandwich and white soda from fridge, updated that we are waiting on transport back to his facility.
--- NOTE | 2024-11-25 16:18 | PC.NURSE ---
Report called to OSWALDO Parisi at [facility]. All questions answered.
[2024-11-25 20:29] VITALS: BP 144/69; PULSE 93; RESP 16; O2SAT 100
== END 2024-11-25 20:36 ==
PROVIDERS: Emergency Provider Emergency Medicine
DX: L98.8 Other specified disorders of the skin and subcutaneous tissue (principal); I87.2 Venous insufficiency (chronic) (peripheral); I25.10 Atherosclerotic heart disease of native coronary artery without angina pectoris; I73.9 Peripheral vascular disease, unspecified; I10 Essential (primary) hypertension; E11.9 Type 2 diabetes mellitus without complications; D64.9 Anemia, unspecified; G47.33 Obstructive sleep apnea (adult) (pediatric); F41.8 Other specified anxiety disorders; Z86.718 Personal history of other venous thrombosis and embolism; Z89.512 Acquired absence of left leg below knee; Z79.899 Other long term (current) drug therapy; Z79.84 Long term (current) use of oral hypoglycemic drugs; Z79.4 Long term (current) use of insulin; Z79.85 Long-term (current) use of injectable non-insulin antidiabetic drugs
CPT/HCPCS: 36415; 80053; 85025; 99283

== ENCOUNTER 2025-05-26 12:53 | Emergency (ER) | payer OTHER, SELFPAY ==
[2025-05-26 12:53] VITALS: BP 139/73; PULSE 99; RESP 18; TEMP 36.7; O2SAT 99
--- OUTSIDE RECORDS SUMMARY | 2025-05-26 12:54 | XMS_ITS | Patient Health Record ---
Author Organization [facility] Address [address] [address] Care Team Providers Care Government Service Executive Name Role Phone Jonel Alston Primary Care Provider Allergies Allergen (clinical drug ingredient) Drug/Non Drug Allergy documented on EMR Reaction Allergy Type Onset Date Status Substance with penicillin structure and antibacterial mechanism of action (substance) Penicillins (uncoded) 04/22/2015-chills Allergy Active Reason For Referral No Information Medications Medication SIG (Take, Route, Frequency, Duration) Notes Start Date End Date Status Citalopram Hydrobromide 40 MG 1 tablet Orally Once a day Active Omeprazole 40 MG 1 capsule Orally Onc e a day Active Levothyroxine Sodium 25 MCG 1 tablet Orally Once a day Active glipiZIDE 10 MG 1 tablet Orally Twic e daily Active Losartan Potassium 100 MG 1 tablet Orall y Once a day Active risperiDONE 1 MG 1 tablet Orally Twic e a day Active traZODone HCl 50 MG 2 tablets at bedtime Orally Once a day Active Flonase 50 MCG/DOSE 1 spray in each nost ril Nasally Once a day Active Farxiga 10 MG 1 tablet Orally Once a day; Duration: 90 days 04/12/2017 Active Insulin Syringe 29G X 1/2 USE TWICE ANGELIA Y; Duration: 30 Active HYDROcodone-Acetaminophen 5-325 MG 1 tablet as needed Orally every 6 hrs Active Ibuprofen 800MG 1 tablet Orally Thre e times a day Not-Taking Aspirin Adult Low Dose 81 MG 1 tablet Orally Once a day Active Lantus 100 UNIT/ML 110 units Subcutaneo us Twice a day 06/14/2017 Active Atorvastatin Calcium 10 MG 1 tablet in PM Orally Once a day 08/27/2015 Active Neurontin 300MG 1 capsule Orally Thr ee times a day 07/13/2014 Active Immunizations Vaccine Route Administration Date Status Comme nts Influenzal (split), seasonal, intermuscular,preservat gonsalo free IM Intramuscular 08/03/2017 Administered Influenza, seasonal, injectable, preservative free, 3 yrs and above IM Intramuscular 07/28/2016 Administered Influenza (split), 3 yrs and above Unknown 07/03/2014 Pending Inactivated Social History Tobacco Use: Social History Observation Description Date Details (start date - stop date) Never Smoker NA - NA Tobacco Use/Smoking Question Answer Notes Are you a nonsmoker Additional Findings: Tobacco Non-User Current no n-smoker Tobacco use other than smoking: Question Answer Notes Are you an other tobacco user? No Problems Problem Type SNOMED Code ICD Code Onset Dates Problem Status W/U Status Risk Notes Problem Hyperlipidemia (13198703) Hyperlipidemia (E78.5) Active confirmed Problem Back pain (309674396) Back pain (M54.9) Active confirmed Problem Generalized osteoarthritis (135139404) Generalized osteoarthritis (M15.9) Active confirmed Problem Type II diabetes mellitus without complication (257467092) DM w/o complication type II (E11.9) Active confirmed Problem Obesity (724682782) Obesity (E66.9) Active conf irmed Problem Noncompliance with treatment (0839593) Non compliance with medical treatment (Z91.19) Active confirmed Problem Bipolar disorder (58966058) Bipolar disorder (F31.9) Active confirmed Problem Epistaxis (174172212) Epistaxis (R04.0) Active confirmed Problem Essential hypertension (64099967) Essential hypertension (I10) Active confirmed Problem Hyperglycemia due to type 2 diabetes mellitus (867458680853791) DM w/o complication type II, uncontrolled (E11.65) Active confirmed Problem Anxiety state (476793523) Anxiety state (F41.1) Active confirmed Problem Abnormal gait (66934628) Abnormality of gait (R26.9) Active confirmed Problem Primary localized osteoarthrosis of ankle AND/OR foot (749471903) Primary localized osteoarthrosis, lower leg (M17.10) Active confirmed Problem Morbid obesity (593772972) Morbid obesity (E66.01) Active confirmed Problem Sleep apnea (64454276) Sleep apnea (G47.30) Active confirmed Problem Degeneration of cervical intervertebral disc (41812704) Degeneration of cervical intervertebral disc (M50.30) Active confirmed Problem Shoulder joint pain (270816056) Pain in joint, shoulder region (M25.519) Active confirmed Problem Depressive disorder (50923391) Depressed affect (R45.89) Active confirmed Problem Varicose veins o f lower extremities with inflammation (I83.10) Active confirmed Problem Ulcer of lower extremity (85444904) Ulcer of lower extremity (L97.909) Active confirmed Problem Mononeuropathy of upper limb (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) Other mononeuritis of upper limb (G56.80) Active confirmed Problem Gastrointestinal hemorrhage (85300984) Hemorrhage of gastrointestinal tract (K92.2) Active confirmed Plan Of Treatment No Information Insurance Providers Payer Name Payer Address Payer Phone Subscriber Number Group Number Insured Name Patient Relationship to Insured Coverage Start Date Coverage End Date MEDICARE PART AB [address] [place] [id number] SRAVAN REYES Self - patient is the insured 0 [place] [address] [address] [place], [place] [id number] SRAVAN REYES Self - patient is the insured 5 Medical (General) History Medical History History ICD Code Hypertension(benign) Bipolar disorder Depression Diabetes mellitus Hyperlipidemia Obesity Osteoarthritis Knee osteoarthritis Surgical History Surgery Date(Month/Year) Left Carpal Tunnel Surgery 2009 Right Arthroscopic Knee Surgery 2006 Hospitalization History Reason Date(Month/Year) Right Arthroscopic Knee surgery 2006 Left Carpal Tunnel surgery 2009
--- OUTSIDE RECORDS SUMMARY | 2025-05-26 12:54 | XMS_ITS | Continuity of Care Document ---
Author Organization [facility] Address [address] [place] [phone] Phone Care Team Providers Care Food Checker Name Role Phone King Rose MD Unavailable Unavailable Allergies, Adverse Reactions, Alerts Substance Reaction Status Criticality PENICILLIN ChillFlushing Active No Information Medications Medication Instructions Dosage Effective Dates (start - stop) Status Comments Lantus U-100 Insulin 100 unit/mL subcutaneous solution inject by subcutaneous route as per insulin protocol 0.00 - Active Vitamin D2 1,250 mcg (50,000 unit) capsule take 1 capsule by oral route every week [address]236 UNITS - Active pantoprazole 20 mg tablet,delayed release take 1 tablet by oral route every day 20 MG - Active aspirin 81 mg chewable tablet chew 1 tablet by oral route every day 81 MG - Active bupropion HCl XL 150 mg 24 hr tablet, extended release take 1 tablet by oral route every day 150 MG - Active escitalopram 10 mg tablet take 1 tablet by oral route every day 10 MG - Active escitalopram 5 mg tablet take 2 tablet by oral route every day 10 MG - Active metolazone 5 mg tablet take 1 tablet by oral route every day 5 MG - Active Senexon-S 8.6 mg-50 mg tablet take 1 tablet by oral route every day 1 tablet - Active Thera-M 27 mg-0.4 mg tablet Take 1 tablet orally once daily. - Active vitamin B12 1,000 mcg-folic acid 400 mcg sublingual lozenge Dissolve 1 tablet under tongue daily. - Active furosemide 80 mg tablet take 1 tablet by oral route every day 80 MG - Active glipizide 5 mg tablet take 1 tablet by oral route 2 times every day before meals 5 MG - Active Vitamin C 500 mg tablet Take 1 tablet orally twice daily. - Active buspirone 5 mg tablet take 1 tablet by oral route 3 times every day 5 MG - Active Mucinex 600 mg tablet, extended release take 1 tablet by oral route every 12 hours as needed 600 MG - Active atorvastatin 10 mg tablet take 1 tablet by oral route every day 10 MG - Active melatonin 3 mg tablet Take 1 tablet orally at bedtime - Active mirtazapine 30 mg tablet take 1 tablet by oral route every day before bedtime 30 MG - Active ondansetron HCl 4 mg tablet take 1 tablet by oral route every 8 hours for 2 days 4 MG - Active Acetaminophen Extra Strength 500 mg tablet take 1 tablet by oral route every 6 hours as needed not to exceed 8 tablets per 24hrs - Active Saline Nasal 0.65 % spray aerosol Use 1 spray in each nostril every 4 hours as needed for nasal congestion - Active Eucerin topical cream Apply to right lower extremity dry scaly intact skin until clear daily. - Active mupirocin 2 % topical ointment apply by topical route 2 times every day a small amount to the affected area Not Available - Active tolnaftate 1 % topical powder Apply topically every 12 hours to affected areas. - Active potassium chloride ER 20 mEq tablet,extended release take 2 tablet by oral route 2 times every day with food 40 MEQ - Active Procedures Procedure Date REMOVE TUNNELED CVC To Be Coded Removal tunneled cv cath Fluoroguide for vein device Advance Directives Directive Yes / No Effective Date File Name No Information Encounters Encounter Description Practice Location Reason(s) For Visit Diagnoses Date Provider Providers Copied on Encounter [facility], [address] [place] [address], [id number], tel:[phone] [facility] No Information Milton Malik. [address] [place] [address], [id number], [place]. tel:[phone] [facility], [address] [place] [address], [id number], [place] tel:[phone] [facility] Milton Malki. [address] [place] [address], [id number], . tel:[phone] Referring Provider: George Salazar, [facility], [place], [address]. tel:[phone] As per patient privacy policy some of the clinical information may not be visible. Family History Family Member Type Diagnosis Age At Onset No Information Payers Payer name Insurance type Covered alliance party ID Alfredo husain(s) Medicaid [place] [id number] Social History Type Description Quantity Date Captured Comments Sex Male Smoking Status No Information Sexual Orientation Straight or heterosexual Gender Identity Male Chief Complaint And Reason For Visit No Information Reason For Referral Reason For Referral No Information Plan Of Treatment Date Type Action Status Future Order: Radiology Order Up per Body Flouroscopy ([id number]), Ordered on: Ordered History Of Present Illness Encounter Date Complaint History Of Prese nt Illness No Information Functional Status Date Functional Assessmen t No Information Instructions Date Instruction Additional Infor mation No Information Assessments Type Assessment Date No Information Patient Care Teams Name Effective Dates (start - stop) Status Members No Information
--- OUTSIDE RECORDS SUMMARY | 2025-05-26 12:54 | XMS_ITS | Clinical Summary ---
Author Organization [facility] Address [address] [place] [id number] Care Team Providers Care Glass Cleaning Machine Tender Name Role Phone Trevor Moctezuma MD Primary Care Provider [phone] Allergies Active Allergy Reactions Criticality Noted Date Comments Penicillins Fever Medium 03/22/2018 Medications acetaminophen (TYLENOL) 500 mg tablet Take 1 tablet (500 mg total) by mouth every 6 (six) hours as needed 12/23/19 18 Active senna-docusat e (PERICOLACE) 8.6-50 mg Take 1 tablet by mouth daily 12/23/19 18 Active multivitamin, ah-enya-plnnz als tablet Take 1 tablet by mouth [...] for injection INJECT SUBCUTANEOUSLY DIRECTED0.37units q evening 03/08/20 18 2023 Discontinued Active Problems Problem Noted Date Diagnosed Date Abdominal pain 08/14/2024 Recurrent hernia 08/14/2024 Encounters Date Type Department Care Team Description 05/23/2025 Telephone [facility] Acute and Critical Care Services [address] [facility] [address] [place] [address] Alejandra Abreu RN 05/18/2025 4:11 AM CDT - 05/18/2025 12:22 PM CDT Emergency [facility] Emergency Department [address] [place] [address] Lelo Blanc MD Schneider, John Elliott, MD Abdominal pain (Primary Dx); Hernia of abdominal cavity Discharge Disposition: Discharge to home or self care from Last 3 Months Surgical History Surgery Date Site/Laterality Comments HERNIA REPAIR Ventral hernia repair x3 30 yrs ago BELOW KNEE LEG AMPUTATION APPENDECTOMY Medical History Medical History Date Comments Hypertension Type 2 diabetes mellitus Hyperlipidemia TAWANDA (obstructive sleep apnea) Social History Tobacco Use Types Packs/Day Years Used Date Smoking Tobacco: Never Smokeless Tobacco: Never Alcohol Use Standard Drinks/Week Comments No 0 (1 standard drink = 0.6 oz pur e alcohol) [facility] Utilities Answer Date Recorded In the past 12 months has [employer] electric, gas, oil, or water [employer] threatened to shut off services in your home? No 08/14/2024 Social Connection and Isolation Panel Answer Date Recorded In a typical week, how many times do you talk on the phone with family, friends, or neighbors? Three times a week 08/14/2024 How often do you get togethe r with friends or relatives? Three times a week 08/14/2024 How often do you attend chur ch or taoist services? Never 08/14/2024 Do you belong to any clubs o r organizations such as latter-day groups, unions, fraternal or athletic groups, or [...] things needed for daily living? No 08/14/2024 PHQ-9 Answer Date Recorded PHQ-9 Total Score 3 08/14/2024 Housing Stability Vital Sign Answer Andrey e Recorded In the last 12 months, was t here a time when you were not able to pay the mortgage or rent on time? No 08/14/2024 In the past 12 months, how m any times have you moved where you were living? 0 08/14/2024 At any time in the past 12 m [facility], were you homeless or living in a long term (including now)? No 08/14/2024 Personal Safety Answer Date Recorded Have you ever been in or are you currently in a harmful physical or emotional relationship or is someone making you feel afraid or unsafe? Denies 05/17/2025 Sex and Gender Information Value Date Recorded Sex Assigned at Not on file Legal Sex Male 7:06 PM [employer] Gender Identity Not on file Sexual Orientation Not on file Obstetrics History Last Filed Vital Signs Vital Sign Reading Time Taken Comments Blood Pressure 133/68 05/18/2025 10:30 AM CDT Pulse 83 05/18/2025 11:20 AM CDT Temperature 36.2 C (97.2 F) 05/18/2025 1:07 AM CDT Respiratory Rate 13 05/18/2025 11:20 AM CDT Oxygen Saturation 95% 05/18/2025 11:20 AM CDT Inhaled Oxygen Concentration - - Weight 136.1 kg (300 lb) 05/17/2025 7:47 PM CDT Height 182.9 cm (6') 05/17/2025 7:47 PM CDT Body Mass Index 40.69 05/17/2025 7:47 PM CDT Plan of Treatment Health Maintenance Due Date Last Done Comments Colon Cancer Screening-Colonoscopy 1955 Hepatitis C Screening 1954 Hepatitis B Screening 1972 Pneumococcal vaccine 65+ (1 of 1 - PCV) 2004 Zoster Vaccine (1 of 2) 2004 Well Visit 65+ 2019 DTaP/Tdap/Td Vaccine (2 - Tdap) 04/22/2024 4 Influenza Vaccine (#1) 2025 1, 11/17/2017, 09/02/2016, Additional history exists Depression Screening 08/13/2025 08/13/2024, 08/13/20 24 Fall Risk Assessment 08/14/2025 08/14/2024 Prostate Cancer Screening-PSA Discontinued 03/01/2014 Procedures Procedure Name Priority Date/Time Associated Diagnosis Comments POCT GLUCOSE DEVICE Routine 05/18/2025 9 :[address] ABDOMEN PELVIS W CONTRAST ED 05/18/2025 6:57 AM CDT POTASSIUM, WHOLE BLOOD STAT 5:41 AM CDT EGFR STAT 05/17/2025 10:54 PM CDT DIFFERENTIAL AUTO STAT 05/17/2025 10: 54 PM CDT LIPASE STAT 05/17/2025 10:54 PM CDT COMPREHENSIVE METABOLIC PANEL STAT 05/17/2025 10:54 PM CDT CBC WITH AUTO DIFFERENTIAL STAT 05/17/2025 10:54 PM CDT PSA SCREEN Routine 03/01/2014 8:12 AM CDT from Last 3 Months or Most Recently Relevant to Health Maintenance Results * POCT glucose (05/18/2025 9:02 AM CDT) Glucose, POC 168 70 - 199 mg/dL Blood 05/18/2025 9:02 AM CDT 05/18/2025 9:02 AM CDT Jh Jimenes MD LAB POCT ORDERABLES - DEVICE Final Result [facility] [place] [address] * CT Abdomen Pelvis W Contrast (05/18/2025 6:57 AM CDT) Anatomical Region Laterality Modality Body N/A Computed Tomogra phy 05/18/2025 7:31 AM CDT Impressions 05/18/2025 11:52 AM CDT 1. Increase in size of a large, eccentrically directed ventral hernia when compared to the 2016 examination. The hernia contains small and large bowel, but there is no evidence of obstruction. 2. Stool ball in the rectum with associated mild stercoral colitis. Dictated by: Jay Bronson MD The radiology attending physician has personally reviewed this study, and had reviewed and/or edited this written report and agrees with it. Electronically signed by: Dilip Campos M.D. Narrative 05/18/2025 11:52 AM CDT EXAMINATION: Computed tomography of the abdomen and pelvis with intravenous contrast HISTORY: Multiple hernia surgeries. Left lower quadrant abdominal pain. Evaluate for bowel obstruction. TECHNIQUE: Transaxial computed tomographic images of the abdomen and pelvis were obtained with intravenous contrast according to the standard protocol after the uneventful administration of 100 mL Opti-Ray 350 intravenous contrast. COMPARISON: CT 05/18/2016 FINDINGS: Imaged heart is normal in size without pericardial effusion. Imaged lung bases demonstrate a calcified granuloma in the left lower lobe. There is no pleural effusion. Calcified granuloma in the liver without suspicious focal lesion. The portal, superior mesenteric, splenic veins are patent. The gallbladder is normal. There is no biliary ductal dilatation. The spleen is normal. The adrenal glands are normal. The pancreas is atrophic. The kidneys enhance symmetrically. There is no hydronephrosis. The urinary bladder is partially decompressed. The small and large bowel are normal in caliber without evidence of obstruction. Multiple bowel anastomoses are seen in the central abdomen. There is a stool ball in the rectum with mild rectal wall thickening. There are postsurgical changes of hernia repair in the anterior abdominal wall. There is a chronic seroma in the anterior abdominal wall which is no substantial change from 2016. There is a large ventral hernia which is eccentrically directed to the left. The hernia has increased in size compared to the 2016 examination. The hernia contains nonobstructed small large bowel. A focus of old fat necrosis is also seen within the hernia sac. There is also small left inguinal hernia containing fat. No intraperitoneal free air or free fluid. No suspicious lymphadenopathy in the abdomen or pelvis. The abdominal aorta is normal in caliber. There is no suspicious osseous lesion. There are degenerative changes of the spine. There is a hyperdensity projecting into the spinal canal arising from the left L2-L3 facet, which may represent a synovial cyst, though this is not optimally evaluated by this modality. Procedure Note Dilip Campos MD - 05/18/2025 EXAMINATION: Computed tomography of the abdomen and pelvis with intravenous contrast HISTORY: Multiple hernia surgeries. Left lower quadrant abdominal pain. Evaluate for bowel obstruction. TECHNIQUE: Transaxial computed tomographic images of the abdomen and pelvis were obtained with intravenous contrast according to the standard protocol after the uneventful administration of 100 mL Opti-Ray 350 intravenous contrast. COMPARISON: CT 05/18/2016 FINDINGS: Imaged heart is normal in size without pericardial effusion. Imaged lung bases demonstrate a calcified granuloma in the left lower lobe. There is no pleural effusion. Calcified granuloma in the liver without suspicious focal lesion. The portal, superior mesenteric, splenic veins are patent. The gallbladder is normal. There is no biliary ductal dilatation. The spleen is normal. The adrenal glands are normal. The pancreas is atrophic. The kidneys enhance symmetrically. There is no hydronephrosis. The urinary bladder is partially decompressed. The small and large bowel are normal in caliber without evidence of obstruction. Multiple bowel anastomoses are seen in the central abdomen. There is a stool ball in the rectum with mild rectal wall thickening. There are postsurgical changes of hernia repair in the anterior abdominal wall. There is a chronic seroma in the anterior abdominal wall which is no substantial change from 2016. There is a large ventral hernia which is eccentrically directed to the left. The hernia has increased in size compared to the 2016 examination. The hernia contains nonobstructed small large bowel. A focus of old fat necrosis is also seen within the hernia sac. There is also small left inguinal hernia containing fat. No intraperitoneal free air or free fluid. No suspicious lymphadenopathy in the abdomen or pelvis. The abdominal aorta is normal in caliber. There is no suspicious osseous lesion. There are degenerative changes of the spine. There is a hyperdensity projecting into the spinal canal arising from the left L2-L3 facet, which may represent a synovial cyst, though this is not optimally evaluated by this modality. IMPRESSION: 1. Increase in size of a large, eccentrically directed ventral hernia when compared to the 2016 examination. The hernia contains small and large bowel, but there is no evidence of obstruction. 2. Stool ball in the rectum with associated mild stercoral colitis. Dictated by: Jay Bronson MD The radiology attending physician has personally reviewed this study, and had reviewed and/or edited this written report and agrees with it. Electronically signed by: Dilip Campos M.D. Anahi Harper MD IMG CT PROCEDURES Estrella l Result * (ABNORMAL) Potassium, whole blood (05/18/2025 5:41 AM CDT) Potassium, bld 5.2(H) 3.3 - 4.9 mmol/L Blood 05/18/2025 5:41 AM CDT 05/18/2025 5:45 AM CDT Anahi Harper MD LAB BLOOD ORDERABLES F inal Result [facility] [place] [address] * eGFR (05/17/2025 10:54 PM CDT) eGFR 63 >=60 mL/min/1. 73 m2 Comment: Interpretive Data Reference Interval Normal >/= 90 mL/min/1.73m2 Mildly decreased* 60 - 89 mL/min/1.73m2 Mildly to moderately decreased 45 - 59 mL/min/1.73m2 Moderately to severely decreased 30 - 44 mL/min/1.73m2 Severely decreased 15 - 29 mL/min/1.73m2 Kidney Failure < 15 mL/min/1.73m2 *Relative to young adult level Estimated glomerular filtration rate is determined by the 2020 CKD-EPI equation recommended by the National Kidney Foundation (A Unifying Approach to GFR Estimation: Recommendations of the NKF-ASK Task Force on Reassessing the Inclusion of Race in Diagnosing Kidney Disease, JASN 2020). The CKD-EPI equation should not be used for patients with unstable renal function and has not been validated in children and those over 70. Current interpretive data was last reviewed 2021. Blood 05/17/2025 10:5 4 PM CDT 05/17/2025 11:27 PM CDT us Star Gaxiola MD LAB BLOOD ORDERABLES Final Result [facility] [place] [address] * (ABNORMAL) Differential, auto (05/17/2025 10:54 PM CDT) Pathologist [facility] Neutrophil abs 5.60 1.50 - 6.50 K/cumm Imm gran abs 0.06 0.00 - 0.10 K/cumm [facility] Lymphocyte abs 2.40 0.80 - 3.30 K/cumm [facility] Monocyte abs 1.22(H) 0.20 - 0.80 K/cumm [facility] Eosinophil abs 0.44 0.00 - 0.50 K/cumm [facility] Basophil abs 0.05 0.00 - 0.10 K/cumm [facility] Neutrophil pct 57.3 % [facility] Comment: Interpretive Data Percent cell count reference ranges are not reported, since discordance with absolute values may lead to misinterpretation of CBC data. Current Interpretive Data was last revised on 2018. Imm gran pct 0.6 % [facility] Comment: Interpretive Data Percent cell count reference ranges are not reported, since discordance with absolute values may lead to misinterpretation of CBC data. Current Interpretive Data was last revised on 2018. Lymphocyte pct 24.6 % [facility] Comment: Interpretive Data Percent cell count reference ranges are not reported, since discordance with absolute values may lead to misinterpretation of CBC data. Current Interpretive Data was last revised on 2018. Monocyte pct 12.5 % [facility] Comment: Interpretive Data Percent cell count reference ranges are not reported, since discordance with absolute values may lead to misinterpretation of CBC data. Current Interpretive Data was last revised on 2018. Eosinophil pct 4.5 % [facility] Comment: Interpretive Data Percent cell count reference ranges are not reported, since discordance with absolute values may lead to misinterpretation of CBC data. Current Interpretive Data was last revised on 2018. Basophil pct 0.5 % [facility] Comment: Interpretive Data Percent cell count reference ranges are not reported, since discordance with absolute values may lead to misinterpretation of CBC data. Current Interpretive Data was last revised on 2018. Blood 05/17/2025 10:5 4 PM CDT 05/17/2025 11:27 PM CDT us Star Gaxiola MD LAB BLOOD ORDERABLES Final Result [facility] [place] [address] * (ABNORMAL) CBC with auto differential (05/17/2025 10:54 PM CDT) WBC 9.77 3.80 - 9.90 K/cumm Hgb 14.1 13.0 - 17.5 g/dL [facility] Hct 43.6 38.9 - 50.3 % [facility] Plt 256 150 - 400 K/cumm [facility] MPV 8.4(L) 9.1 - 12.3 fL [facility] RBC 4.60 4.30 - 5.80 M/cumm [facility] MCV 94.8 81.3 - 96.4 fL [facility] MCH 30.7 27.1 - 33.3 pg [facility] MCHC 32.3 32.3 - 35.7 g/dL [facility] RDW CV 13.1 11.1 - 14.9 % [facility] RDW SD 45.2 35.7 - 48.1 fL [facility] NRBC abs 0.00 0.00 - 0.01 K/cumm [facility] Blood 05/17/2025 10:5 4 PM CDT 05/17/2025 11:27 PM CDT Star Gaxiola MD LAB BLOOD ORDERABLES Final Result Performing Organization Address City/[facility] Co de Phone Number [facility] [place] [address] * Lipase (05/17/2025 10:54 PM CDT) Pathologist [facility] Lipase 13 10 - 99 Units/L Blood 05/17/2025 10:5 4 PM CDT 05/17/2025 11:27 PM CDT Star Gaxiola MD LAB BLOOD ORDERABLES Final Result Performing Organization Address City/[facility]/ZIP Co de Phone Number [facility] [place] [address] * (ABNORMAL) Comprehensive metabolic panel (05/17/2025 10:54 PM CDT) Pathologist [facility] Sodium 139 135 - 145 mmol/L Potassium, pl 5.3(H) 3.3 - 4.9 mmol/L [facility] Chloride 102 97 - 110 mmol/L [facility] CO2 29 22 - 32 mmol/L [facility] Anion gap 8 2 - 15 mmol/L [facility] BUN 19 6 - 25 mg/dL [facility] Creatinine 1.23 0.80 - 1.30 mg/dL [facility] Glucose 73 70 - 199 mg/dL [facility] Comment: Interpretive Data Fasting glucose >/= 126 mg/dl is diagnostic for diabetes. Fasting is defined as no caloric intake for at least 8 hours. Fasting glucose between 100 mg/dl to 125 mg/dl is diagnostic of prediabetes. In a patient with classic symptoms of hyperglycemia or hyperglycemic crisis, a random glucose >/= 200 mg/dl is diagnostic for diabetes. In the absence of unequivocal hyperglycemia, results should be confirmed by repeat testing. The classification and Diagnosis of Diabetes Diabetes Care 2021; 46: S19-S40. Current interpretive data was last revised 2022. Calcium 10.2 8.5 - 10.3 mg/dL [facility] Bilirubin, total 0.5 0.1 - 1.2 mg/dL [facility] Protein, pl 8.3 6.5 - 8.5 g/dL [facility] Albumin 4.4 3.5 - 5.0 g/dL [facility] Alk phos 119 40 - 130 Units/L [facility] ALT 12 7 - 55 Units/L [facility] AST 23 10 - 50 Units/L [facility] Blood 05/17/2025 10:5 4 PM CDT 05/17/2025 11:27 PM CDT us Star Gaxiola MD LAB BLOOD ORDERABLES Final Result [facility] [place] [address] * PSA screen (03/01/2014 8:12 AM CDT) [facility] Signature PSA Screen < 0.1 0.0 - 3.9 ng/mL 03/01/2014 9:24 AM CDT [facility] HISTORICAL RESULTS Comment: Method: ECLIA Values obtained by different assay methods cannot be used interchangeably. Use sequential testing to confirm baseline if assay method changed during patient monitoring. 03/01/2014 8:12 AM CDT 03/01/2014 8:32 AM CDT Narrative [facility] HISTORICAL RESULTS - 03/01/2014 9:24 AM CDT PT HAS BEEN FASTING FOR 8 HOURS Jonel Alston MD LAB BLOOD ORDERABLES Final Result [facility] HISTORICAL RESULTS from Last 3 Months or Most Recently Relevant to Health Maintenance [place] [facility] [place] [facility] MEDICARE [place] [facility] [place] [address] [facility] Advance Directives For more information, please contact: [phone] Documents on File Type Date Recorded Patient Explosives Detonator Expl anation ADVANCE DIRECTIVE 11/26/2013 12:00 AM [employer]A [employer] FINANCIAL/MEDICAL * Full Code (Latest Code Status on File) Date Activated Date Inactivated Comments 08/13/2024 11:45 PM 08/14/2024 7:25 PM Care Teams Glass Cleaning Machine Tender Relationship Specialty Start Date End Date Trevor Moctezuma MD [phone] [address] PCP - General Pediatrics 04/15/20
--- OUTSIDE RECORDS SUMMARY | 2025-05-26 12:54 | XMS_ITS | Clinical Summary ---
Author Organization [facility] Address [address] [place] [address] Care Team Providers Care Case Operator Name Role Phone Jonel Alston MD Primary [...] Td Vaccines ( 1 - Tdap) 1973 Pneumococcal Vaccine: 50+ Ye ars (1 of 1 - PCV) 2004 Zoster Vaccines (1 of 2) 2004 Annual Medicare Wellness Visit 2019 COVID-19 Vaccine ( - 2023-2 5 season) 2024 RSV Immunization or 60+ Years (1 [...] Date Last Indicated MRSA 05/23/2017 05/23/2017 Insurance [employer] Care Teams Case Operator Relationship Specialty Start Date End Date Jonel Alston MD PCP - General 04/02/14
--- OUTSIDE RECORDS SUMMARY | 2025-05-26 12:54 | XMS_ITS | Clinical Summary ---
Author Organization [facility] Address [address], [place] [address] Phone Care Team Providers Care Fire Eater Name Role Phone Renato Moctezuma MD Primary Care Provider Unavailabl e Allergies Active Allergy Reactions Criticality Noted Date Comments Penicillins Fever Medium 03/22/2018 Other reaction(s): Chill, Flushing Medications acetaminophen (TYLENOL) 500 MG tablet take 1 tablet by oral route every 6 hours as needed not to exceed 8 tablets per 24hrs 8 Active insulin glargine (Lantus) 100 UNIT/ML injection Inject under the skin 1 Active insulin aspart (NovoLOG) 100 UNIT/ML injection 1 Active ergocalciferol (VITAMIN D-2) 1.25 MG (21540 UT) capsule Take 1 capsule by mouth once a week Active pantoprazole (PROTONIX) 20 MG EC tablet Take by mouth daily 1 Active metOLazone (ZAROXOLYN) 5 MG tablet Take by mouth daily Active buPROPion XL (WELLBUTRIN XL) 150 MG 24 hr tablet Take by mouth daily 1 Active escitalopram (LEXAPRO) 10 MG tablet Take by mouth daily 0 Active escitalopram (LEXAPRO) 5 MG tablet Take by mouth daily 0 Active furosemide (LASIX) 80 MG tablet Take by mouth daily Active potassium chloride (KLOR-CON M20) 20 MEQ CR tablet Take by mouth every 12 hours Active senna-docusate (Senexon-S) 8.6-50 MG per tablet Take by mouth daily 8 Active Multiple Vitamins-Minerals (Thera-M) tablet 1 (one) time each day 8 Active Cobalamin Combinations (B-12) 100-5000 MCG sublingual tablet Dissolve 1 tablet under tongue daily. Active ascorbic acid (VITAMIN C) 500 MG tablet Take 1 tablet orally twice daily. 8 Active atorvastatin (LIPITOR) 10 MG tablet Take by mouth daily 0 Active melatonin 3 MG tablet Take 1 tablet orally at bedtime Active mirtazapine (REMERON) 30 MG tablet Take by mouth daily 0 Active ondansetron ODT (ZOFRAN-ODT) 4 MG dispersible tablet 1 Active mupirocin (BACTROBAN) 2 % ointment Apply topically every 12 hours Active Active Problems Problem Noted Date Diagnosed Date Hypertensive disorder 09/19/2021 Dyslipidemia 09/19/2021 Peripheral arterial occlusive disease 09/19/2021 Type 1 diabetes mellitus 09/19/2021 Acute kidney failure 09/19/2021 Immunizations Immunization Administration Dates Next Due Influenza TIV (IM) 08/31/2021 Social History Tobacco Use Types Packs/Day Years Used Date Smoking Tobacco: Never Smokeless Tobacco: Never Alcohol Use Standard Drinks/Week Comments Not Currently 0 (1 standard drink = 0.6 oz pur e alcohol) Sex and Gender Information Value Date Recorded Sex Assigned at Not on file Legal Sex Male 12:22 PM [facility] Gender Identity Not on file Sexual Orientation [...] 11:34 AM CDT Height 188 cm (6' 2) 02/18/2022 11:34 AM CDT Body Mass Index 41.21 02/18/2022 11:34 AM CDT Plan of Treatment Health Maintenance Due Date Last Done Comments Pneumococcal PPSV23/PCV13 65 + Years / Low and Medium Risk (1 of 2 - PCV) 2004 Influenza Vaccine (#1) 2025 08/31/2021 Insurance MEDICARE [place]ICAID - [place] Care Teams Fire Eater Relationship Specialty Start Date End Date Renato Moctezuma MD [address] [place] [address] PCP - General Internal Medicine 02/18/22
--- OUTSIDE RECORDS SUMMARY | 2025-05-26 12:54 | XMS_ITS | Clinical Summary ---
Author Organization [facility] Address [address] [place] [address] Care Team Providers Care Target Man Name Role Phone Renato Moctezuma MD Primary Care Provider [phone] Source Comments [facility],non-owned Affiliates and Associated Physician Practices is amultiple site organization consisting of ambulatory clinics and hospital sitesin [place], [place], [place] and [place]. This disclosure is being madepursuant to the [facility] Everywhere program and may not contain all information available regarding this patient. Last updated 18.[facility] [employer] Allergies Active Allergy Reactions Criticality Noted Date Comments Penicillins Fever Medium 03/22/2018 Medications * Be aware that medications may not be up to date on this document. Alwaysverify current medications with the patient. atorvastatin (LIPITOR) 10 MG tablet 0 Active buPROPion XL 24hr (WELLBUTRIN-XL) 150 MG tablet 1 Active clotrimazole-be tamethasone (LOTRISONE) 1-0.05 % cream 1 Active escitalopram (LEXAPRO) 10 MG tablet 0 Active gabapentin (NEURONTIN) 600 MG tablet 1 Active insulin aspart (NOVOLOG) vial 1 Active LANTUS vial 1 Active HUMALOG KWIKPEN 100 UNIT/ML pen 1 Active ketoconazole (NIZORAL) 2 % cream 1 Active VICTOZA 18 MG/3ML pen 1 Active lisinopril (PRINIVIL; ZESTRIL) 10 MG tablet 0 Active metFORMIN (GLUCOPHAGE) 1000 MG tablet 1 Active mirtazapine (REMERON) 30 MG tablet 0 Active ondansetron, disintegrating, (ZOFRAN ODT) 4 MG tablet 1 Active pantoprazole EC (PROTONIX) 20 MG tablet 1 Active SSD 1 % cream 1 Active traMADol (ULTRAM) 50 MG tablet 1 Active traZODone (DESYREL) 100 MG tablet 1 Active potassium chloride ER (KLOR-CON) 20 MEQ tablet Take 60 mEq by mouth once daily Active melatonin 3 MG tablet Take 3 mg by mouth at bedtime Active ACETAMINOPHEN PO Take 500 mg by mouth Active polyethylene glycol 3350 (MIRALAX) 17 GM/SCOOP powder Take 17 g by mouth once daily Active Cholecalciferol (VITAMIN D3) 1.25 MG (42268 UT) TABS Take 50,000 Units by mouth every 7 days Active metOLazone (ZAROXOLYN) 5 MG tablet Take 5 mg by mouth once daily Active Sennosides-Docu sate Sodium (SENNA-DOCUSATE SODIUM) 8.6-50 MG Active Multiple [...] at Not on file 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 Gender Identity Not on file Sexual Orientation [...] 2:45 PM CDT Height 188 cm (6' 2) 02/02/2022 2:45 PM CDT Body Mass Index [...] FLEX SIG - COLON CA SCREENING 1954 HEPATITIS C SCREENING 11/13/1972 DTAP/TDAP/TD VACCINES (1 - Tdap) 1973 PNEUMOCOCCAL VACCINE 50+ (1 of 1 - PCV) 2004 ZOSTER VACCINE (1 of 2) 2004 COVID-19 VACCINE (1 - 2023-2 5 season) 2024 SCREENING FOR DIABETES 09/26/2024 , 11/15/2017 DEPRESSION SCREENING 10/17/2024 INFLUENZA VACCINE (#1) 2025 08/31/2021 Respiratory Syncytial Virus (RSV) Vaccine Pt: or [...] complete this topic MENINGOCOCCAL (Group B) VACCINE SHARED DECISION-MAKING Aged Out No longer eligible based on patient's age to complete this topic MENINGOCOCCAL GROUPS A/C/Y/W VACCINE Aged Out No longer eligible b ased on patient's age to complete this topic Insurance MEDICARE [facility] Care Teams Target Man Relationship Specialty Start [place] [address] [place] [phone] PCP - General 07/07/21
--- OUTSIDE RECORDS SUMMARY | 2025-05-26 12:54 | XMS_ITS | Encounter Summary ---
Author Organization [facility] Address [address] [place] [address] Phone Care Team Providers Care Fence Gate Assembler Name Role Phone Unknown, Notinfile Primary Care Provider Unavail able Trevor Moctezuma MD Primary Care Provider [phone] Encounter Details Date Type Department Care Team (Latest Contact Info) Description 11/21/2017 Orders Only [facility] CONVERSION Scanning, Provider Social History Tobacco Use Types Packs/Day Years Used Date Smoking Tobacco: Never Assessed Sex and Gender Information Value Date Recorded Sex Assigned at Not on file 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 Gender Identity Not on file Sexual Orientation Not on file documented as of this encounter Plan of Treatment Not on file documented as of this encounter Procedures Procedure Name Priority Date/Time Associated Diagnosis Comments VASCULAR LABORATORY REPORT 11/21/2017 4:13 PM FREIGHT BOOKER documented in this encounter Results * VASCULAR LABORATORY REPORT (11/21/2017 4:13 PM FREIGHT BOOKER) Anatomical Region Laterality Modality Ultrasound us Provider Scanning CV VASCULAR PROCEDURES Final R esult documented in this encounter Visit Diagnoses Not on filedocumented in this encounter Additional Health Concerns Infection Onset Date Last Indicated Resolved Time 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
--- OUTSIDE RECORDS SUMMARY | 2025-05-26 13:33 | XMS_ITS | Encounter Summary ---
Author Organization [facility] Address [address] [place] [address] Phone Care Team Providers Care Head Butler Name Role Phone Unknown, Notinfile Primary Care Provider Unavail able Trevor Moctezuma MD Primary Care Provider [phone] Encounter Details Date Type Department Care Team (Latest Contact Info) Description 11/21/2017 Orders Only [facility] CONVERSION Scanning, Provider Social History Tobacco Use Types Packs/Day Years Used Date Smoking Tobacco: Never Assessed Sex and Gender Information Value Date Recorded Sex Assigned at Not on file 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 Gender Identity Not on file Sexual Orientation Not on file documented as of this encounter Plan of Treatment Not on file documented as of this encounter Procedures Procedure Name Priority Date/Time Associated Diagnosis Comments VASCULAR LABORATORY REPORT 11/21/2017 4:13 PM BEEF BREAKER documented in this encounter Results * VASCULAR LABORATORY REPORT (11/21/2017 4:13 PM BEEF BREAKER) Anatomical Region Laterality Modality Ultrasound us Provider Scanning CV VASCULAR PROCEDURES Final R esult documented in this encounter Visit Diagnoses Not on filedocumented in this encounter Additional Health Concerns Infection Onset Date Last Indicated Resolved Time 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
--- OUTSIDE RECORDS SUMMARY | 2025-05-26 13:33 | XMS_ITS | Clinical Summary ---
Author Organization [facility] Address [address] [address] Phone Care Team Providers Care Fiberglass Pipe Covering Supervisor Name Role Phone Renato Moctezuma MD Primary [...] 1 Active ergocalciferol (VITAMIN D-2) 1.25 MG (14326 UT) capsule Take 1 capsule by mouth [...] on file Legal Sex Male 12:22 PM [facility] Gender Identity Not on file Sexual Orientation [...] Insurance MEDICARE [place] Care Teams Fiberglass Pipe Covering Supervisor Relationship Specialty Start Date End Date Renato Moctezuma MD [address] [place] [address] PCP - General Internal Medicine 02/18/22
--- OUTSIDE RECORDS SUMMARY | 2025-05-26 13:33 | XMS_ITS | Clinical Summary ---
Author Organization [facility] Address [address] [place] [address] Care Team Providers Care Health Insurance Agent Name Role Phone Jonel Alston MD Primary [...] MRSA 05/23/2017 05/23/2017 Insurance [employer] Care Teams Health Insurance Agent Relationship Specialty Start Date End Date Jonel Alston MD PCP - General 04/02/14
--- OUTSIDE RECORDS SUMMARY | 2025-05-26 13:33 | XMS_ITS | Clinical Summary ---
Author Organization [facility] Address [address] [place] [address] Care Team Providers Care Neon Sign Erector Name Role Phone Trevor Moctezuma MD Primary Care Provider [phone] Allergies Active Allergy Reactions Criticality Noted Date Comments Penicillins Fever Medium 03/22/2018 Medications acetaminophen (TYLENOL) 500 mg tablet Take 1 tablet (500 mg total) by mouth every 6 (six) hours as needed 12/23/19 18 Active senna-docusat e (PERICOLACE) 8.6-50 mg Take 1 tablet by mouth daily 12/23/19 18 Active multivitamin, tp-eetm-xjcuj als tablet Take 1 tablet by mouth [...] Type Department Care Team Description 05/23/2025 Telephone [facility] Acute [facility] Critical Care Services [address] [place] [address] Alejandra Abreu RN 05/18/2025 4:11 AM CDT - 05/18/2025 12:22 PM CDT Emergency [facility] Emergency Department [address] [place] [address] Lelo Blanc MD Schneider, John Elliott, MD [...] drink = 0.6 oz pur e alcohol) [facility] Utilities Answer Date Recorded In the past 12 months has [employer], gas, oil, or water [employer] threatened to shut off services in your [...] often do you attend chur ch or lutheran services? Never 08/14/2024 Do you belong to any clubs o r organizations such as hoahaoism groups, unions, fraternal or athletic groups, or [...] any time in the past 12 m [facility], were you homeless or living in a senior living (including now)? No 08/14/2024 Personal Safety Answer Date Recorded Have you ever been in or are you currently in a harmful physical or emotional relationship or is someone making you feel afraid or unsafe? 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 Gender Identity Not on file Sexual Orientation [...] LAB POCT ORDERABLES - DEVICE Final Result [facility] Department [place] [address] * CT Abdomen Pelvis W Contrast (05/18/2025 [...] LAB BLOOD ORDERABLES F inal [facility] [place] [address] * eGFR (05/17/2025 10:54 PM CDT) eGFR [...] MD LAB BLOOD ORDERABLES Final Result [facility] [place] [address] * (ABNORMAL) Differential, auto (05/17/2025 10:54 PM CDT) Pathologist [facility] Neutrophil abs 5.60 1.50 - 6.50 K/cumm Imm gran abs 0.06 0.00 - 0.10 K/cumm [facility] Lymphocyte abs 2.40 0.80 - 3.30 K/cumm [facility] Monocyte abs 1.22(H) 0.20 - 0.80 K/cumm [facility] Eosinophil abs 0.44 0.00 - 0.50 K/cumm [facility] Basophil abs 0.05 0.00 - 0.10 K/cumm [facility] Neutrophil pct 57.3 % [facility] Comment: Interpretive Data Percent cell count reference ranges are not reported, since discordance with absolute values may lead to misinterpretation of CBC data. Current Interpretive Data was last revised on 2018. Imm gran pct 0.6 % [facility] Comment: Interpretive Data Percent cell count reference ranges are not reported, since discordance with absolute values may lead to misinterpretation of CBC data. Current Interpretive Data was last revised on 2018. Lymphocyte pct 24.6 % [facility] Comment: Interpretive Data Percent cell count reference ranges are not reported, since discordance with absolute values may lead to misinterpretation of CBC data. Current Interpretive Data was last revised on 2018. Monocyte pct 12.5 % [facility] Comment: Interpretive Data Percent cell count reference ranges are not reported, since discordance with absolute values may lead to misinterpretation of CBC data. Current Interpretive Data was last revised on 2018. Eosinophil pct 4.5 % [facility] Comment: Interpretive Data Percent cell count reference ranges are not reported, since discordance with absolute values may lead to misinterpretation of CBC data. Current Interpretive Data was last revised on 2018. Basophil pct 0.5 % [facility] Comment: Interpretive Data Percent cell count reference ranges are not reported, since discordance with absolute values may lead to misinterpretation of CBC data. Current Interpretive Data was last revised on 2018. Blood 05/17/2025 10:5 4 PM CDT 05/17/2025 11:27 PM CDT us Star Gaxiola MD LAB BLOOD ORDERABLES Final Result [facility] Department [place] [address] * (ABNORMAL) CBC with auto differential (05/17/2025 10:54 PM CDT) WBC 9.77 3.80 - 9.90 K/cumm Hgb 14.1 13.0 - 17.5 g/dL [facility] Hct 43.6 38.9 - 50.3 % [facility] Plt 256 150 - 400 K/cumm [facility] MPV 8.4(L) 9.1 - 12.3 fL [facility] RBC 4.60 4.30 - 5.80 M/cumm [facility] MCV 94.8 81.3 - 96.4 fL [facility] MCH 30.7 27.1 - 33.3 pg [facility] MCHC 32.3 32.3 - 35.7 g/dL [facility] RDW CV 13.1 11.1 - 14.9 % [facility] RDW SD 45.2 35.7 - 48.1 fL [facility] NRBC abs 0.00 0.00 - 0.01 K/cumm [facility] Blood 05/17/2025 10:5 4 PM CDT 05/17/2025 11:27 PM CDT Star Gaxiola MD LAB BLOOD ORDERABLES Final Result Performing Organization Address City/[facility] Co de Phone Number [facility] [place] [address] * Lipase (05/17/2025 10:54 PM CDT) Pathologist [facility] Lipase 13 10 - 99 Units/L Blood 05/17/2025 10:5 4 PM CDT 05/17/2025 11:27 PM CDT Star Gaxiola MD LAB BLOOD ORDERABLES Final Result Performing Organization Address City/[facility]/ZIP Co de Phone Number [facility] [place] [address] * (ABNORMAL) Comprehensive metabolic panel (05/17/2025 10:54 PM CDT) Pathologist [facility] Sodium 139 135 - 145 mmol/L Potassium, pl 5.3(H) 3.3 - 4.9 mmol/L [facility] Chloride 102 97 - 110 mmol/L [facility] CO2 29 22 - 32 mmol/L [facility] Anion gap 8 2 - 15 mmol/L [facility] BUN 19 6 - 25 mg/dL [facility] Creatinine 1.23 0.80 - 1.30 mg/dL [facility] Glucose 73 70 - 199 mg/dL [facility] Comment: Interpretive Data Fasting glucose >/= 126 [...] 2022. Calcium 10.2 8.5 - 10.3 mg/dL [facility] Bilirubin, total 0.5 0.1 - 1.2 mg/dL [facility] Protein, pl 8.3 6.5 - 8.5 g/dL [facility] Albumin 4.4 3.5 - 5.0 g/dL [facility] Alk phos 119 40 - 130 Units/L [facility] ALT 12 7 - 55 Units/L [facility] AST 23 10 - 50 Units/L [facility] Blood 05/17/2025 10:5 4 PM CDT 05/17/2025 11:27 PM CDT us Star Gaxiola MD LAB BLOOD ORDERABLES Final Result [facility] Department [place] [address] * PSA screen (03/01/2014 8:12 AM CDT) [facility] Signature PSA Screen < 0.1 0.0 - 3.9 ng/mL Comment: Method: ECLIA Values obtained by different assay methods cannot be used interchangeably. Use sequential testing to confirm baseline if assay method changed during patient monitoring. 03/01/2014 8:12 AM CDT 03/01/2014 8:32 AM CDT Narrative [facility] HISTORICAL RESULTS - 03/01/2014 9:24 AM CDT PT HAS BEEN FASTING FOR 8 HOURS Jonel Alston MD LAB BLOOD ORDERABLES Final Result [facility] HISTORICAL RESULTS from Last 3 Months or Most Recently Relevant to Health Maintenance Insurance [facility] MEDICARE IDPA [facility] [place] [address] [facility] Advance Directives For more information, please contact: [phone] Documents on File Type Date Recorded Patient Clinical Aide Expl anation ADVANCE DIRECTIVE 11/26/2013 12:00 AM NORA R OF COP BREAKER FINANCIAL/MEDICAL * Full Code (Latest Code Status on File) Date Activated Date Inactivated Comments 08/13/2024 11:45 PM 08/14/2024 7:25 PM Care Teams Neon Sign Erector Relationship Specialty Start Date End Date Trevor Moctezuma MD [address] [address] PCP - General Pediatrics 04/15/20
--- OUTSIDE RECORDS SUMMARY | 2025-05-26 13:33 | XMS_ITS | Continuity of Care Document ---
Author Organization [facility] Address [address] [place] [phone] Phone Care Team Providers Care Appeals And Generalist Clerk Name Role Phone King Rose MD Unavailable [...] 1 capsule by oral route every week [address] UNITS - Active pantoprazole 20 mg tablet,delayed [...] Diagnoses Date Provider Providers Copied on Encounter [facility], [address] [place] [address], [id number], tel:[phone] [facility] No Information Milton Malik. [address] [place] [address], [id number], [place]. tel:[phone] [facility], [address] [place] [address], [id number], [place] tel:[phone] [facility] Milton Malik. [address] [place] [address], [id number], . tel:[phone] Referring Provider: George Salazar, [facility], [place], [address]. tel:[phone] As per patient privacy policy some of the clinical information may not be visible. Family History Family Member Type Diagnosis Age At Onset No Information Payers Payer name Insurance type Covered republican ID Alfredo husain(s) Medicaid [place] [id number] Social History Type Description Quantity Date Captured Comments Sex Male Smoking Status No Information Sexual Orientation Straight or heterosexual Gender Identity Male Chief Complaint And Reason For Visit No Information Reason For Referral Reason For Referral No Information Plan Of Treatment Date Type Action Status Future Order: Radiology Order Up per Body Flouroscopy ([id number]), Ordered on: Ordered History Of Present Illness Encounter Date Complaint History Of Prese nt Illness No Information Functional Status Date Functional Assessmen t No Information Instructions Date Instruction Additional Infor mation No Information Assessments Type Assessment Date No Information Patient Care Teams Name Effective Dates (start - stop) Status Members No Information
--- OUTSIDE RECORDS SUMMARY | 2025-05-26 13:33 | XMS_ITS | Clinical Summary ---
Author Organization [facility] Address [address] [place] [address] Care Team Providers Care Information Technology Manager Name Role Phone Renato Moctezuma MD Primary Care Provider [phone] Source Comments [facility],non-owned Affiliates and Associated Physician Practices is amultiple site organization consisting of ambulatory clinics and hospital sitesin [place], [place], [place] and [place]. This disclosure is being madepursuant to the [facility] Everywhere program and may not contain all information available regarding this patient. 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
--- NOTE | 2025-05-26 13:37 | ED.GENADULT ---
HPI - General Adult General Chief complaint: Wound/Laceration Stated complaint: Infected finger Time Seen by Provider: 05/26/25 13:04 History of Present Illness HPI narrative: 69-year-old male presents emergency department for evaluation for infection to his right index finger. Patient reports he was trimming his nails and developed an infection of the distal finger. Related Data Home Medications ?Medication ?Instructions ?Recorded ?Confirmed ?Last Taken ?Type acetaminophen 500 mg tablet 500 mg PO Q6H PRN Pain 11/14/19 05/29/23 Unknown History (Acetaminophen Extra Strength) ergocalciferol (vitamin D2) 1,250 50,000 unit PO WEEKLY 11/14/19 05/29/23 03/02/21 History mcg (50,000 unit) capsule (Vitamin D2) escitalopram oxalate 10 mg tablet 10 mg PO DAILY 11/14/19 11/23/24 Unknown History escitalopram oxalate 5 mg tablet 5 mg PO DAILY 11/14/19 11/23/24 Unknown History multivit,tx with iron 27 1 tablet PO DAILY 11/14/19 05/29/23 Unknown History vo-okkdkko-gdnsa acid 0.4 mg-minerals tablet (Therapeutic-M Vitamin/Minerals) sennosides 8.6 mg-docusate sodium 1 tab-cap PO DAILY 04/14/20 11/23/24 Unknown History 50 mg tablet (Senexon-S) sodium chloride 0.65 % nasal spray 1 spray intranasal Q4H PRN Nasal 04/15/20 05/29/23 Unknown History aerosol (Saline Nasal Mist) Congestion buspirone 5 mg tablet 5 mg PO DAILY 03/03/21 05/29/23 Unknown History bupropion HCl 150 mg 24 hr tablet, 150 mg PO DAILY 05/16/21 05/29/23 Unknown History extended release (Wellbutrin XL) furosemide 80 mg tablet 80 mg PO BID 09/22/22 05/29/23 Unknown History glipizide 10 mg tablet 20 mg PO BID 09/22/22 11/23/24 Unknown History guaifenesin 600 mg tablet, 600 mg PO Q12-24H 09/22/22 05/29/23 Unknown History extended release 12 hr (Mucinex) insulin glargine 100 unit/mL (3 90 unit subcut BID 09/22/22 05/29/23 Unknown History mL) subcutaneous pen (Basaglar KwikPen U-100 Insulin) magnesium hydroxide 400 mg/5 mL 30 ml PO DAILY PRN Constipation 09/22/22 05/29/23 Unknown History oral suspension (Milk of Magnesia) metolazone 5 mg tablet 2.5 mg PO HS 09/22/22 05/29/23 Unknown History potassium chloride 20 mEq 80 meq PO TID 09/22/22 05/29/23 Unknown History tablet,extended release trazodone 50 mg tablet 50 mg PO HS Insomnia 09/22/22 05/29/23 Unknown History ascorbic acid (vitamin C) 500 mg 500 mg PO BID 05/29/23 05/29/23 Unknown History tablet atorvastatin 10 mg tablet 10 mg PO HS 05/29/23 05/29/23 Unknown History diclofenac sodium 1 % topical gel 4 g topical DAILY 05/29/23 05/29/23 Unknown History famotidine 20 mg tablet 20 mg PO DAILY 05/29/23 11/23/24 Unknown History insulin aspart U-100 100 unit/mL See Rx Instructions .Route .COMPLEX 05/29/23 05/29/23 Unknown History (3 mL) subcutaneous pen (Novolog FlexPen U-100 Insulin aspart) magnesium oxide 400 mg PO DAILY 05/29/23 11/23/24 Unknown History melatonin 3 mg tablet 3 mg PO HS 05/29/23 05/29/23 Unknown History menthol 0.44 %-zinc oxide 20.6 % 1 applic topical QAM AND QPM 05/29/23 05/29/23 Unknown History topical ointment (Calmoseptine) polyethylene glycol 3350 17 gram 17 g PO DAILY PRN Constipation 05/29/23 05/29/23 Unknown History oral powder packet (Miralax) semaglutide 0.25 mg or 0.5 mg (2 0.5 mg subcut WEEKLY 05/29/23 05/29/23 Unknown History mg/3 mL) subcutaneous pen injector (Ozempic) Allergies Allergy/AdvReac Type Severity Reaction Status Date / Time Penicillins AdvReac Unknown Fever Verified 05/26/25 12:56 Review of Systems Review of Systems: All systems reviewed & are unremarkable except as noted in HPI and below PMFSH Past Medical History Medical History Depression with anxiety Chronic stasis dermatitis Obstructive sleep apnea Noncompliant with CPAP. History of deep venous thrombosis Coronary artery disease Ventral hernia Chronic large left lower quadrant ventral hernia Chronic anemia Insulin dependent type 2 diabetes mellitus Hemoglobin A1c 9.2 Peripheral vascular disease Hypertension Surgical History Surgical History History of tonsillectomy Status post herniorrhaphy Ventral hernia repair x3. Status post below-knee amputation of left lower extremity Family History Family History Father , at age 69 Diabetes mellitus Family history of alcoholism Mother Diabetes mellitus Sibling Family history of emphysema Social History Social History Social History: The patient has been at [facility] for several years. Before that he was living with his mother in [place]. He is on disability. He had 2 daughters, one at the age of 34 from an ID. He is a lifelong non-smoker. A former heavy drinker though he has abstained since moving [facility]. He denies illicit drug use. Patient wishes to be a full code. His [id number] is his mother, Nicolle Veloz. Smoking status: Never smoker Alcohol intake: never Drinks per week: 50 Substance use: never Lack of Transportation: No Lack of Food: Never True Current Housing: I Have Housing Concerned About Future Housing: No Difficulty Paying Gas/Electric Bills: No Difficulty Paying for Meds: No Currently Unemployed: No Education: Grade School Difficulty w/ Childcare or Family Care: No Living arrangements: retirement Gender identity (if verbalized by the patient): Male Spiritual care concerns: No Exam Narrative: APPEARANCE: Well appearing, no pain, no distress, well-nourished. HEAD: normocephalic, atraumatic. EYES: PERRLA/EOMI, conjunctivae clear. NOSE: Normal no drainage EARS:TMS clear with good light reflex. THROAT: Pharynx clear, no exudate. NECK: Supple. No adenopathy, no masses. RESPIRATORY: Airway patent, respirations nonlabored. Clear to auscultation bilaterally, no rales, rhonchi, wheezing. CARDIOVASCULAR: Regular rate and rhythm without murmurs rubs or gallops. ABDOMINAL: Soft, nontender, nondistended, normal bowel sounds MUSCULOSKELETAL: Erythema distal aspect of the index finger of the right hand NEURO: Alert. Cranial nerves II through XII intact. Good gait. Good coordination Course Vital Signs Vital signs: Vital Signs Temperature 98.0 F 05/26/25 12:53 Pulse Rate 99 05/26/25 12:53 Respiratory Rate 18 05/26/25 12:53 Blood Pressure 139/73 05/26/25 12:53 Pulse Oximetry 99 05/26/25 12:53 Oxygen Delivery Room Air 05/26/25 12:53 Temperature 98.0 F 05/26/25 12:53 Pulse Rate 99 05/26/25 12:53 Respiratory Rate 18 05/26/25 12:53 Blood Pressure 139/73 05/26/25 12:53 Pulse Oximetry 99 05/26/25 12:53 Oxygen Delivery Room Air 05/26/25 12:53 Medical Decision Making MDM Narrative Medical decision making narrative: 69-year-old male present to the emergency department for evaluation for infection his distal right index finger. Patient was started on IV cl[facility] emergency department. Patient will be discharged home on clindamycin. Vital Signs Vital Signs: Vital Signs Temperature 98.0 F 05/26/25 12:53 Pulse Rate 99 05/26/25 12:53 Respiratory Rate 18 05/26/25 12:53 Blood Pressure 139/73 05/26/25 12:53 Pulse Oximetry 99 05/26/25 12:53 Oxygen Delivery Room Air 05/26/25 12:53 Temperature 98.0 F 05/26/25 12:53 Pulse Rate 99 05/26/25 12:53 Respiratory Rate 18 05/26/25 12:53 Blood Pressure 139/73 05/26/25 12:53 Pulse Oximetry 99 05/26/25 12:53 Oxygen Delivery Room Air 05/26/25 12:53 Discharge Plan Discharge Clinical Impression: Cellulitis Patient Disposition: Home Condition: Stable Instructions: Antibiotic Form, Cellulitis (ED) Additional Instructions: Wound care as directed. Antibiotics as directed until completed. Have close follow-up with your primary care physician. Patient Language: Italian Prescriptions: New clindamycin HCl [Cleocin HCl] 300 mg capsule 300 mg PO Q6H 7 Days Qty: 28 0RF No Action acetaminophen [Acetaminophen Extra Strength] 500 mg Tablet 500 mg PO Q6H PRN (Reason: Pain) Therapeutic-M Vitamin/Minerals 27-0.4 mg Tablet 1 tablet PO DAILY escitalopram oxalate 10 mg tablet 10 mg PO DAILY Rx Instructions: take with 5mg tablet escitalopram oxalate 5 mg tablet 5 mg PO DAILY Rx Instructions: take with 10 mg tablet ergocalciferol (vitamin D2) [Vitamin D2] 1,250 mcg (50,000 unit) Capsule 50,000 unit PO WEEKLY Rx Instructions: pt takes on Tuesday sennosides-docusate sodium [Senexon-S] 8.6-50 mg Tablet 1 tab-cap PO DAILY Saline Nasal Mist 0.65 % Aerosol,[place] 1 spray INTRANASAL Q4H PRN (Reason: Nasal Congestion) buspirone 5 mg Tablet 5 mg PO DAILY mecobalamin (vitamin B12) 1,000 mcg tablet,disintegrating 1,000 mcg sublingual DAILY Qty: 30 0RF Rx Instructions: place tablet under tongue and allow to dissolve for at least30 secs before swallowing glipizide 10 mg Tablet 20 mg PO BID potassium chloride 20 mEq Tablet Extended Release 80 meq PO TID insulin glargine [Basaglar KwikPen U-100 Insulin] 100 unit/mL (3 mL) Insulin Pen 90 unit SUBCUT BID guaifenesin [Mucinex] 600 mg Tablet Extended Release 12hr 600 mg PO Q12-24H Rx Instructions: every 12 hours metolazone 5 mg Tablet 2.5 mg PO HS furosemide 80 mg Tablet 80 mg PO BID trazodone 50 mg Tablet 50 mg PO HS magnesium hydroxide [Milk of Magnesia] 400 mg/5 mL Suspension 30 ml PO DAILY PRN (Reason: Constipation) bupropion HCl [Wellbutrin XL] 150 mg Tablet Extended Release 24 Hr 150 mg PO DAILY hydrocodone-acetaminophen 5-325 mg tablet 1 tablet PO Q6H PRN (Reason: pain) 3 Days Qty: 12 0RF polyethylene glycol 3350 [Miralax] 17 gram Powder In Packet 17 g PO DAILY PRN (Reason: Constipation) atorvastatin 10 mg tablet 10 mg PO HS melatonin 3 mg Tablet 3 mg PO HS famotidine 20 mg tablet 20 mg PO DAILY ascorbic acid (vitamin C) 500 mg Tablet 500 mg PO BID insulin aspart U-100 [Novolog FlexPen U-100 Insulin] 100 unit/mL (3 mL) insulin pen See Rx Instructions .ROUTE .COMPLEX Rx Instructions: 56 units subQ in the AM, 65 units subQ at lunch, and 56 units subQ in the evening diclofenac sodium 1 % gel 4 g TOPICAL DAILY Rx Instructions: apply to right knee and right shoulder menthol-zinc oxide [Calmoseptine] 0.44-20.6 % Ointment 1 applic TOPICAL QAM AND QPM Rx Instructions: and as needed, apply to buttocks magnesium oxide 400 mg magnesium Tablet 400 mg PO DAILY Ozempic 0.25 mg or 0.5 mg (2 mg/3 mL) pen injector 0.5 mg SUBCUT WEEKLY Rx Instructions: for four weeks. started dose on 05/13 doxycycline hyclate 100 mg capsule 100 mg PO DAILY Qty: 7 0RF dicyclomine 20 mg tablet 20 mg PO TID PRN (Reason: abdominal pain) Qty: 14 0RF ondansetron 4 mg tablet,disintegrating 4 mg PO Q8H PRN (Reason: nausea and vomiting) Qty: 10 0RF levofloxacin 750 mg tablet 750 mg PO DAILY 5 Days Qty: 5 0RF Follow-up/Referrals: PHYSICIAN NOT ON STAFF,NONSTAFF [Primary Care Provider] -
[2025-05-26] MEDS: CLINDAMYCIN 600 MG/D5W 50 ML 600 MG/50 ML PIGGYBACK 100 MG IVPB (13:51)
== END 2025-05-26 15:48 | disposition home or self-care (01) ==
PROVIDERS: Emergency Provider Emergency Medicine
DX: L03.011 Cellulitis of right finger (principal); Z79.4 Long term (current) use of insulin; F41.8 Other specified anxiety disorders; G47.33 Obstructive sleep apnea (adult) (pediatric); I25.10 Atherosclerotic heart disease of native coronary artery without angina pectoris; E11.9 Type 2 diabetes mellitus without complications; I73.9 Peripheral vascular disease, unspecified; I10 Essential (primary) hypertension
CPT/HCPCS: 96365; 99284